=== PATIENT | female | born 1985 | race Caucasian/White ===

== ENCOUNTER 2016-08-24 03:17 | Observation (INO) | payer OTHER ==
[~2016-08-24] VITALS: Ht 165.1 cm; Wt 114.4 kg
[2016-08-24] MEDS: LACTATED RINGER'S 1000ML 1,000 ML IV SCH ×2 (01:00→17:27)
[~2016-08-24 03:17] MED LIST: CRAN500C2; DIPH25CA65 PO; PRENTAB26 PO
[2016-08-24 03:20] VITALS: Ht 165.1 cm; Wt 114.4 kg
--- NOTE | 2016-08-24 03:52 | EMERGENCY ROOM VISIT NOTE ---
History Report prepared by Sohail: Franki Hobbs Under the Supervision of: Dr. Karen Mcclellan D.O. First contact with patient: 03:26 Chief Complaint: CHEST PAIN Stated Complaint: CHEST PAIN Nursing Triage Summary: Pt brought in by EMS. Pt woke up with midsternal chest pain that radiates to back. It started at 1230 am. Pt then became nauseated. Pt reports she has been dealing with lower abdominal pain and kidney stones. History of Present Illness The patient is a 31 year old female who presents to the Emergency Room with complaints of improved midsternal chest pain and epigastric pain starting about 3 hours ago. She woke up when she had a sudden onset of severe chest pain pain. She also reports a tightness in her chest. She had worsening pain with lying on her back. She also had shakiness, cold/clammy hands, shortness of breath, epigastric abdominal pain, and nausea. The patient reports a reduced urinary output tonight. The patient currently reports a discomfort in her chest but denies any pain. She denies vomiting, lower extremity pain/swelling, or any other complaints. For the past few days, she has been having blood in her urine and some back pain. She had steak-umm for dinner last night. She denies any history of acid reflux disease. She had a vaginal child delivery 6 months ago. She also has a history of appendectomy. Source of History: patient Onset: about 3 hours ago Position: chest (midsternal ) Symptom Intensity: No pain currently Timing: other (improved) Associated Symptoms: + SOB, + abdominal pain, + nausea, No vomiting Review of Systems See HPI for pertinent positives & negatives. A total of 10 systems reviewed and were otherwise negative. Past Medical & Surgical Medical Problems: (1) 23 weeks gestation of (2) Active labor (3) Asthma (4) Cholecystitis (5) Flank pain (6) Hand pain, left (7) History of - miscarriage (8) Intractable pain (9) Intractable pain (10) Kidney stone on right side (11) Kidney stone on right side (12) Kidney stones (13) Left flank pain (14) Renal colic (15) Renal colic Surgical Problems: (1) History of appendectomy Family History Diabetes mellitus Heart disease Hypertension Social History Smoking Status: Never Smoker Marital Status: Housing Status: lives with family Current/Historical Medications Scheduled PRN Hydrocodone/Acetaminophen 5MG/325MG ([place] 5MG/325MG), 1-2 TABLET PO Q4H PRN for Pain Allergies Coded Allergies: Banana (Unverified Allergy, Severe, ANAPHYLAXIS - "TONGUE TINGLES", 08/24/16 ) Dust (Verified Allergy, Severe, SNEEZING; MAY HAVE DIFFICULTY BREATHING, 08/24/16) Soy Allergy (Verified Allergy, Severe, ANAPHYLAXIS, 08/24/16) [place] Seed (Verified Allergy, Severe, ANAPHYLAXIS, 08/24/16) Latex1 -Allergic Contact Dermititis (Verified Allergy, Mild, slight skin irritation, 08/24/16) slight skin irritation Physical Exam Vital Signs Date Time Temp Pulse Resp B/P Pulse Ox O2 Delivery O2 Flow Rate FiO2 08/24/16 08:52 87 20 123/85 97 Room Air 08/24/16 07:18 80 08/24/16 07:18 79 18 138/86 98 Room Air 08/24/16 05:59 75 16 129/90 95 Room Air 08/24/16 04:54 79 16 127/76 99 Room Air 08/24/16 03:27 99 Room Air 08/24/16 03:24 82 08/24/16 03:20 36.3 88 20 134/84 99 Room Air Physical Exam HEENT: Head - normocephalic and atraumatic Pupils are equal, round, and reactive to light. Extraocular eye muscles are intact, and sclera are anicteric. Nose - moist nasal mucosa without discharge. Mouth - moist buccal mucosa. Oropharynx is nonerythematous and there is no tonsillar exudate or edema noted. Neck: Supple; no JVD, nuchal rigidity, cervical lymphadenopathy. Heart: Regular rate and rhythm. There is a normal S1 and S2 with no murmurs, clicks, or gallops appreciated. Lungs: Clear to auscultation bilaterally with no wheezes, rales, or rhonchi. Abdomen: Soft, pain in the epigastrium and right upper quadrant to palpation, nondistended, with hypoactive bowel sounds. There are no palpable pulsatile masses or hepatosplenomegaly. There is no guarding, rigidity, or rebound noted. Extremities: No evidence of cyanosis, clubbing, or edema. There are easily palpable peripheral pulses. Skin: warm and dry with good turgor and no rashes. Medical Decision & Procedures ER Provider Diagnostic Interpretation: X-ray results as stated below per interpretation by me: CHEST/ABDOMEN X-RAY She has significant colonic fecal retention. No obvious fecal impaction. US results as stated below per my review and radiologist interpretation: US RUQ COMPARISON: Renal ultrasound 05/21/2016; abdomen and pelvis CT without intravenous contrast 05/15/2014. IMPRESSION: Cholelithiasis, mild to modeate gallbladder dilation, mild gallbladder wall thickening, and trace pericholecystic fluid, suggesting acute cholecystitis; sonographic Clancy;s sign is reportedly negative, however; no biliary duct dilatation. INCIDENTAL: Mildly enlarged, fatty liver; probably small gallbladder polyp; stable appeanace of right kidney, with right renal calyceal stones, as before, without significant right hydronephrosis. Radiologist: Daksha Robles MD Laboratory Results 08/24/16 03:12 Red Blood Count 4.31, Mean Corpuscular Volume 89.8, Mean Corpuscular Hemoglobin 30.4, Mean Corpuscular Hemoglobin Concent 33.9, Mean Platelet Volume 9.6, Neutrophils (%) (Auto) 40.0, Lymphocytes (%) (Auto) 50.9, Monocytes (%) (Auto) 5.6, Eosinophils (%) (Auto) 2.8, Basophils (%) (Auto) 0.5, Neutrophils # (Auto) 3.85, Lymphocytes # (Auto) 4.90, Monocytes # (Auto) 0.54, Eosinophils # (Auto) 0.27, Basophils # (Auto) 0.05 08/24/16 03:12 Test 08/24/16 03:12 08/24/16 03:37 08/24/16 03:52 White Blood Count 9.63 K/uL (4.8-10.8) Red Blood Count 4.31 M/uL (4.2-5.4) Hemoglobin 13.1 g/dL (12.0-16.0) Hematocrit 38.7 % (37-47) Mean Corpuscular Volume 89.8 fL (80-100) Mean Corpuscular Hemoglobin 30.4 pg (25-34) Mean Corpuscular Hemoglobin Concent 33.9 g/dl (32-36) Platelet Count 253 K/uL (130-400) Mean Platelet Volume 9.6 fL (7.4-10.4) Neutrophils (%) (Auto) 40.0 % Lymphocytes (%) (Auto) 50.9 % Monocytes (%) (Auto) 5.6 % Eosinophils (%) (Auto) 2.8 % Basophils (%) (Auto) 0.5 % Neutrophils # (Auto) 3.85 K/uL (1.4-6.5) Lymphocytes # (Auto) 4.90 K/uL (1.2-3.4) Monocytes # (Auto) 0.54 K/uL (0.11-0.59) Eosinophils # (Auto) 0.27 K/uL (0-0.5) Basophils # (Auto) 0.05 K/uL (0-0.2) RDW Standard Deviation 43.2 fL (36.4-46.3) RDW Coefficient of Variation 13.1 % (11.5-14.5) Immature Granulocyte % (Auto) 0.2 % Immature Granulocyte # (Auto) 0.02 K/uL (0.00-0.02) Prothrombin Time 9.6 SECONDS (9.0-12.0) Prothromb Time International Ratio 0.9 (0.9-1.1) Activated Partial Thromboplast Time 29.6 SECONDS (21.0-31.0) Partial Thromboplastin Ratio 1.1 Anion Gap 14.0 mmol/L (3-11) Est Creatinine Clear Calc Drug Dose 116.1 ml/min Estimated GFR () 101.4 Estimated GFR (Non- 87.5 BUN/Creatinine Ratio 16.2 (10-20) Calcium Level 9.1 mg/dl (8.5-10.1) Total Bilirubin 0.3 mg/dl (0.2-1) Direct Bilirubin < 0.1 mg/dl (0-0.2) Aspartate Amino Transf (AST/SGOT) 22 U/L (15-37) Alanine Aminotransferase (ALT/SGPT) 37 U/L (12-78) Alkaline Phosphatase 126 U/L (45-117) Troponin I < 0.015 ng/ml (0-0.045) Total Protein 7.8 gm/dl (6.4-8.2) Albumin 4.0 gm/dl (3.4-5.0) Lipase 248 U/L (73-393) Urine Color YELLOW Urine Appearance CLEAR (CLEAR) Urine pH 5.5 (4.5-7.5) Urine Specific [place] 1.028 (1.000-1.030) Urine Protein NEG (NEG) Urine Glucose (UA) NEG (NEG) Urine Ketones NEG (NEG) Urine Occult Blood NEG (NEG) Urine Nitrite NEG (NEG) Urine Bilirubin NEG (NEG) Urine Urobilinogen NEG (NEG) Urine Leukocyte Esterase NEG (NEG) Bedside Glucose 104 mg/dl (70-90) Laboratory results per my review. Medications Administered Medications (Trade) Dose Ordered Sig/Dia Route Start Time Stop Time Status Last Admin Dose Admin Sodium Chloride 1,000 ml @ 250 mls/hr Q4H STAT IV 08/24/16 07:05 08/24/16 11:04 DC 08/24/16 07:18 250 MLS/HR Lactated Ringer's (Lr 1000ml) 1,000 ml @ 125 mls/hr Q8H IV 08/24/16 07:20 09/23/16 07:19 08/24/16 17:27 125 MLS/HR Morphine Sulfate (MoRPHine SULFATE INJ) 3 mg Q1H PRN IV 08/24/16 07:30 09/07/16 07:29 08/24/16 15:06 3 MG Procedure IV normal saline drip ECG Indication: chest pain Rate (beats per minute): 79 Rhythm: normal sinus Findings: no acute ischemic change, no ectopy ED Course 0326: Past medical records reviewed. The patient was evaluated in room B11B. A complete history and physical exam was performed. An IV lock was initiated and labs are drones above 0404: The nurse told me that the patient was feeling lightheaded. Her blood sugar was 104. 0456: I reevaluated the patient who is resting comfortably. She will go for ultrasound of the right upper quadrant. 0652: Upon reevaluation, I discussed findings and results with the patient. She is extremely anxious but she verbalized agreement of the treatment plan. 0659: I spoke with Dr. Au, general surgeon with [facility]. The patient will be evaluated for further management and care. Medical Decision This is a 31 year old female who presents with epigastric pain and chest pain. Differential diagnosis include constipation, small bowel obstruction, pancreatitis, colitis, cholecystitis, kidney stones. Her labs showed normal white count, urinalysis is normal, glucose 104, Alk-Phos 126, lipase 248, renal function is normal, potassium slightly low at 3.2, no leukocytosis, stable H&H, and negative troponin. This is a 31-year-old female who presents to the emergency department with epigastric pain and chest pain. Plain films reveal moderate stool within the large bowel. However, the patient had an ultrasound which showed evidence of cholelithiasis angle bladder wall thickening concerning for acute cholecystitis. I reviewed the results of this with Dr. Au from surgery and he will evaluate the patient for further care. She'll be kept NPO at this time. Consults Time Called: 06 Consulting Physician: Dr. Au, general surgeon with [facility] Returned Call: [phone] Au, general surgeon with [facility]. The patient will be evaluated for further management and care. Impression Primary Impression: Acute cholecystitis Scribe Attestation The scribe's documentation has been prepared under my direction and personally reviewed by me in its entirety. I confirm that the note above accurately reflects all work, treatment, procedures, and medical decision making performed by me. Departure Information Dispostion Being Evaluated By Surgeon Prescriptions Hydrocodone/Acetaminophen 5MG/325MG ([place] 5MG/325MG) Tab 1-2 TABLET PO Q4H Y for Pain, #30 TAB Prov: Vincent Greene JR.,JOSE 08/24/16 Referrals Vincent Santiago M.D.(TIZ) (PCP) Patient Instructions A Signature Page, My [facility]
[2016-08-24 03:53] LABS: MANUAL MICROSCOPIC REQUIRED? NO; REVIEW REQ? NO; URINE APPEARANCE CLEAR (CLEAR); URINE BILIRUBIN NEG (NEG); URINE COLOR YELLOW; URINE NITRITE NEG (NEG); URINE PH 5.5 (4.5-7.5); URINE SPECIFIC GRAVITY 1.028 (1.000-1.030); UROBILINOGEN NEG (NEG)
[2016-08-24 03:55] LABS: HEMATOCRIT 38.7 % (37-47); MEAN CELL VOLUME 89.8 fL (80-100); MEAN CORPUSCULAR HEMOGLOBIN 30.4 pg (25-34); MEAN CORPUSCULAR HGB CONC 33.9 g/dl (32-36); MEAN PLATELET VOLUME 9.6 fL (7.4-10.4); PLATELET COUNT 253 K/uL (130-400); RED BLOOD COUNT 4.31 M/uL (4.2-5.4); WHITE BLOOD COUNT 9.63 K/uL (4.8-10.8)
[2016-08-24 04:12] LABS: ALT/SGPT 37 U/L (12-78); AST/SGOT 22 U/L (15-37); BLOOD UREA NITROGEN 14 mg/dl (7-18); BUN/CREATININE RATIO 16.2 (10-20); CALCIUM 9.1 mg/dl (8.5-10.1); CARBON DIOXIDE 25 mmol/L (21-32); CHLORIDE 104 mmol/L (98-107); CREATININE 0.87 mg/dl (0.60-1.20); GLUCOSE 108 mg/dl (70-99); POTASSIUM 3.2 mmol/L (3.5-5.1); SODIUM 143 mmol/L (136-145)
[2016-08-24 04:15] LABS: ALKALINE PHOSPHATASE 126 U/L (45-117)
[2016-08-24 04:28] LABS: BASO % 0.5 %; BASO ABS # 0.05 K/uL (0-0.2); COMPLETE YES; EOS % 2.8 %; IG% 0.2 %; LYMPH % 50.9 %; MONO % 5.6 %
[2016-08-24] MEDS ORDERED: SODIUM CHLORIDE 0.9% 1000ML 1,000 ML IV STA (07:05)
--- NOTE | 2016-08-24 07:28 | DIAGNOSTIC IMAGING REPORT ---
ABDOMINAL ULTRASOUND, RIGHT UPPER QUADRANT HISTORY: Right upper quadrant abdominal pain.. COMPARISON: Renal ultrasound 05/21/2016. Abdomen and pelvis CT 05/15/2014. FINDINGS: Pancreas: The pancreatic head and tail are obscured by overlying bowel gas. The remaining portions of the pancreas are within normal limits. Liver: The liver is echogenic consistent with fatty change. Mildly enlarged measuring 18.7 cm in length. Gallbladder: There are few small gallstones. There is mild gallbladder wall thickening and trace pericolic 6 fluid. There is a 7 mm polyp at the fundus of the gallbladder. CBD: 4 mm. Right kidney: No hydronephrosis. There are echogenic medullary pyramids with a few small stones. Possible 2.5 cm hypoechoic lesion within the right kidney. IMPRESSION: 1. There are few small gallstones. The gallbladder wall is mildly thickened and there is trace pericholecystic fluid. A sonographic Clancy sign was reportedly negative. However, this could represent an early acute cholecystitis. 2. Mild hepatomegaly demonstrating fatty change. 3. No hydronephrosis. Echogenic medullary pyramids with a few small stones. 4. Possible 2.5 cm hypoechoic mass within the right kidney. Dedicated nonemergent renal CT or renal MRI is recommended for further evaluation. Electronically signed by: Bao Mercado M.D. 08/24/2016 7:26 AM Dictated Date/Time: 08/24/2016 7:20 AM
[2016-08-24] MEDS ORDERED: ONDANSETRON INJ 2 MG/ML 2 ML VIAL IV PRN ×2 (07:30→12:00)
[2016-08-24] MEDS ORDERED: MoRPHine SULFATE 10 MG/ML CARP/VIAL IV PRN (07:30)
[2016-08-24] MEDS ORDERED: MoRPHine SULFATE 4 MG/ML 1 ML CARP\\VIAL IV PRN (07:30)
[2016-08-24] MEDS ORDERED: DiphenhydrAMINE HCL 50 MG/ML VIAL IV PRN ×2 (07:30→12:00)
--- NOTE | 2016-08-24 07:48 | DIAGNOSTIC IMAGING REPORT ---
PA CHEST WITH ABDOMINAL SERIES CLINICAL HISTORY: Constipation. Atypical chest pain. FINDINGS: A PA chest radiograph is obtained. No prior studies are available for comparison at the time of dictation. The cardiomediastinal silhouette is unremarkable. The lungs and pleural spaces are clear. No pneumothorax is seen. The bony thorax is grossly intact. Supine and erect abdominal radiographs are correlated with abdominal CT dated 05/15/2014. There is a nonobstructed abdominal bowel gas pattern. Moderate colonic fecal retention is noted. No intraperitoneal free air is seen. There are no abnormal abdominal calcifications. The lumbosacral spine and bony pelvis appear intact. IMPRESSION: 1. No active disease in the chest. 2. Nonobstructed abdominal bowel gas pattern noting constipation. Electronically signed by: Devon Hawk M.D. 08/24/2016 7:46 AM Dictated Date/Time: 08/24/2016 7:44 AM
[2016-08-24] MEDS ORDERED: IV FLUIDS COMPLETED PRN (08:00)
[2016-08-24] MEDS ORDERED: AMPICILLIN/SULBACTAM SOD INJ 1,500 MG in SODIUM CHLORIDE 0.9% 100ML 100 ML IV SCH (09:30)
--- NOTE | 2016-08-24 09:37 | History and Physical ---
History & Physical Date & Time of Service: Aug 24, 2016 at 08:08 Chief Complaint: Chest Pain Primary Care Physician: Vincent Santiago M.D.(ITZ) History of Present Illness 31 y/o female woke up last night with severe epigastric pain with mid-scapular pain and radiation to the right side. Had cheese steak for dinner. Had nausea, no vomiting. Not been feeling well for the past week, appetite poor. Has had some right sided discomfort but attributed this to her history of kidney stones. Mother and grandmother had cholecystectomy. She is also nursing 6 month old baby girl. Past Medical/Surgical History Medical Problems: (1) 23 weeks gestation of Status: Resolved (2) Active labor Status: Resolved (3) Asthma Status: Chronic (4) Flank pain Status: Resolved (5) Hand pain, left Status: Resolved (6) History of - miscarriage Status: Resolved (7) Intractable pain Status: Resolved (8) Intractable pain Status: Resolved (9) Kidney stone on right side Status: Resolved (10) Kidney stone on right side Status: Resolved (11) Kidney stones Status: Resolved (12) Left flank pain Status: Resolved (13) Renal colic Status: Resolved (14) Renal colic Status: Resolved Surgical Problems: (1) History of appendectomy Status: Resolved Family History Diabetes mellitus Heart disease Hypertension Social History Smoking Status: Never Smoker Marital Status: Housing status: lives with family Immunizations History of Influenza Vaccine: Unknown History of Tetanus Vaccine?: Unknown History of Pneumococcal: Unknown History of Hepatitis B Vaccine: Unknown Multi-Drug Resistant Organisms History of MDRO: No Allergies Coded Allergies: Banana (Unverified Allergy, Severe, ANAPHYLAXIS - "TONGUE TINGLES", 08/24/16 ) Dust (Verified Allergy, Severe, SNEEZING; MAY HAVE DIFFICULTY BREATHING, 08/24/16) Soy Allergy (Verified Allergy, Severe, ANAPHYLAXIS, 08/24/16) [place] Seed (Verified Allergy, Severe, ANAPHYLAXIS, 08/24/16) Latex1 -Allergic Contact Dermititis (Verified Allergy, Mild, slight skin irritation, 08/24/16) slight skin irritation Home Medications No Active Prescriptions or Reported Meds Review of Systems Constitutional: + chills, No fever Abdomen: + constipation, + nausea, + pain, No vomiting Physical Exam Vital Signs Date Time Temp Pulse Resp B/P Pulse Ox O2 Delivery O2 Flow Rate FiO2 08/24/16 07:18 80 08/24/16 07:18 79 18 138/86 98 Room Air 08/24/16 05:59 75 16 129/90 95 Room Air 08/24/16 04:54 79 16 127/76 99 Room Air 08/24/16 03:27 99 Room Air 08/24/16 03:24 82 08/24/16 03:20 36.3 88 20 134/84 99 Room Air General Appearance: WD/WN, + mild distress Neck: supple Respiratory/Chest: lungs clear, normal breath sounds Cardiovascular: regular rate, rhythm, no edema Abdomen/GI: normal bowel sounds, soft, + tenderness (minmal RUQ) Extremities/Musculoskelatal: no pedal edema Skin: normal color, warm/dry Diagnostics Laboratory Results Results Past 24 Hours Test 08/24/16 03:12 08/24/16 03:37 08/24/16 03:52 Range/Units White Blood Count 9.63 4.8-10.8 K/uL Red Blood Count 4.31 4.2-5.4 M/uL Hemoglobin 13.1 12.0-16.0 g/dL Hematocrit 38.7 37-47 % Mean Corpuscular Volume 89.8 80-100 fL Mean Corpuscular Hemoglobin 30.4 25-34 pg Mean Corpuscular Hemoglobin Concent 33.9 32-36 g/dl Platelet Count 253 130-400 K/uL Mean Platelet Volume 9.6 7.4-10.4 fL Neutrophils (%) (Auto) 40.0 % Lymphocytes (%) (Auto) 50.9 % Monocytes (%) (Auto) 5.6 % Eosinophils (%) (Auto) 2.8 % Basophils (%) (Auto) 0.5 % Neutrophils # (Auto) 3.85 1.4-6.5 K/uL Lymphocytes # (Auto) 4.90 1.2-3.4 K/uL Monocytes # (Auto) 0.54 0.11-0.59 K/uL Eosinophils # (Auto) 0.27 0-0.5 K/uL Basophils # (Auto) 0.05 0-0.2 K/uL RDW Standard Deviation 43.2 36.4-46.3 fL RDW Coefficient of Variation 13.1 11.5-14.5 % Immature Granulocyte % (Auto) 0.2 % Immature Granulocyte # (Auto) 0.02 0.00-0.02 K/uL Sodium Level 143 136-145 mmol/L Potassium Level 3.2 3.5-5.1 mmol/L Chloride Level 104 98-107 mmol/L Carbon Dioxide Level 25 21-32 mmol/L Anion Gap 14.0 3-11 mmol/L Blood Urea Nitrogen 14 7-18 mg/dl Creatinine 0.87 0.60-1.20 mg/dl Est Creatinine Clear Calc Drug Dose 116.1 ml/min Estimated GFR () 101.4 Estimated GFR (Non- 87.5 BUN/Creatinine Ratio 16.2 10-20 Random Glucose 108 70-99 mg/dl Calcium Level 9.1 8.5-10.1 mg/dl Total Bilirubin 0.3 0.2-1 mg/dl Direct Bilirubin < 0.1 0-0.2 mg/dl Aspartate Amino Transf (AST/SGOT) 22 15-37 U/L Alanine Aminotransferase (ALT/SGPT) 37 12-78 U/L Alkaline Phosphatase 126 45-117 U/L Troponin I < 0.015 0-0.045 ng/ml Total Protein 7.8 6.4-8.2 gm/dl Albumin 4.0 3.4-5.0 gm/dl Lipase 248 73-393 U/L Urine Color YELLOW Urine Appearance CLEAR CLEAR Urine pH 5.5 4.5-7.5 Urine Specific [place] 1.028 1.000-1.030 Urine Protein NEG NEG Urine Glucose (UA) NEG NEG Urine Ketones NEG NEG Urine Occult Blood NEG NEG Urine Nitrite NEG NEG Urine Bilirubin NEG NEG Urine Urobilinogen NEG NEG Urine Leukocyte Esterase NEG NEG Bedside Glucose 104 70-90 mg/dl Diagnostic Radiology ABDOMINAL ULTRASOUND, RIGHT UPPER QUADRANT HISTORY: Right upper quadrant abdominal pain.. COMPARISON: Renal ultrasound 05/21/2016. Abdomen and pelvis CT 05/15/2014. FINDINGS: Pancreas: The pancreatic head and tail are obscured by overlying bowel gas. The remaining portions of the pancreas are within normal limits. Liver: The liver is echogenic consistent with fatty change. Mildly enlarged measuring 18.7 cm in length. Gallbladder: There are few small gallstones. There is mild gallbladder wall thickening and trace pericolic 6 fluid. There is a 7 mm polyp at the fundus of the gallbladder. CBD: 4 mm. Right kidney: No hydronephrosis. There are echogenic medullary pyramids with a few small stones. Possible 2.5 cm hypoechoic lesion within the right kidney. IMPRESSION: 1. There are few small gallstones. The gallbladder wall is mildly thickened and there is trace pericholecystic fluid. A sonographic Clancy sign was reportedly negative. However, this could represent an early acute cholecystitis. 2. Mild hepatomegaly demonstrating fatty change. 3. No hydronephrosis. Echogenic medullary pyramids with a few small stones. 4. Possible 2.5 cm hypoechoic mass within the right kidney. Dedicated nonemergent renal CT or renal MRI is recommended for further evaluation. Electronically signed by: Bao Mercado M.D. 08/24/2016 7:26 AM Dictated Date/Time: 08/24/2016 7:20 AM Impression Assessment and Plan Acute/chronic cholecystitis Will plan for laparoscopic cholecystectomy (no cholangiogram) this afternoon by Dr. Au. Preop Unasyn. VTE Prophylaxis VTE Risk Assessment Done? Y/N: Yes Risk Level: Moderate
[2016-08-24] MEDS ORDERED: AMPICILLIN/SULBACTAM SOD INJ 3,000 MG in SODIUM CHLORIDE 0.9% 100ML 100 ML IV ONE (11:00)
[2016-08-24] MEDS ORDERED: PROPOFOL IV EMULSION 10 MG/ML 20 ML VIAL IV ONE (11:18)
[2016-08-24] MEDS ORDERED: ONDANSETRON INJ 2 MG/ML 2 ML VIAL ONE ×2 (11:18→12:21)
[2016-08-24] MEDS ORDERED: GLYCOPYRROLATE INJ 0.2 MG/ML VIAL ONE (11:18)
[2016-08-24] MEDS ORDERED: ROCURONIUM BROMIDE 10 MG/ML 5 ML VIAL ONE (11:18)
[2016-08-24] MEDS ORDERED: DEXAMETHASONE SOD INJ 4 MG/ML VIAL ONE ×2 (11:18→12:21)
[2016-08-24] MEDS ORDERED: MIDAZOLAM HCL 1 MG/ML 2ML VIAL ONE (11:18)
[2016-08-24] MEDS ORDERED: LIDOCAINE HCL 2% 2 ML VIAL (20MG/ML) ONE (11:18)
[2016-08-24] MEDS ORDERED: NEOSTIGMINE METHYLSULFATE 5 MG/5 ML SYR ONE (11:18)
[2016-08-24] MEDS ORDERED: FENTANYL CITRATE INJ 50 MCG/1 ML 2 ML VIAL ONE ×2 (11:19→13:05)
[2016-08-24] MEDS ORDERED: SCOPOLAMINE 1.5 MG TDSY TD ONE (11:31)
[2016-08-24] MEDS ORDERED: LACTATED RINGER'S 1000ML 1,000 ML IV PRN (11:46)
[2016-08-24] MEDS ORDERED: FENTANYL CITRATE INJ 50 MCG/1 ML 2 ML VIAL IV PRN (12:00)
[2016-08-24] MEDS ORDERED: METOCLOPRAMIDE HCL INJ 5 MG/ML 2 ML VIAL ONE (12:20)
[2016-08-24] MEDS ORDERED: DiphenhydrAMINE HCL 50 MG/ML VIAL ONE (12:21)
[2016-08-24] MEDS ORDERED: BUPIVACAINE/EPINEPHRINE 0.5% MPF 1:200,000 30 ML VIAL INJ ONE (12:58)
--- NOTE | 2016-08-24 13:23 | [facility] Operative Report ---
Operative Report Operative Date Aug 24, 2016. Pre-Operative Diagnosis acute cholecystitis Post-Operative Diagnosis same Procedure(s) Performed lap cholecystectomy Surgeon Dr. Fabricio Au Industrial Seamstress Surgeon(s) Flako Greene PA-C Estimated Blood Loss 25ML Findings acute calculous cholecystitis Specimens A. Gallbladder Complication(s) None Disposition Recovery Room / PACU I attest to the content of the Intraoperative Record and any orders documented therein. Any exceptions are noted below.
[2016-08-24] MEDS ORDERED: HYDR-5688 PO (13:24)
--- NOTE | 2016-08-24 13:26 | Discharge Instructions ---
Discharge Instructions Admission Reason for Admission: Chest Pain Discharge Discharge Diagnosis / Problem: Acute cholecystitis Discharge Goals Goal(s): Decrease discomfort Activity Recommendations Activity Limitations: per Instructions/Follow-up section Shower/Bathe: no limitations Driving or Machine Use: resume 3 days after discharge . Instructions / Follow-Up Instructions / Follow-Up Dr. Au's office within 2 weeks, call [phone] to schedule, [address] Current Hospital Diet Patient's current hospital diet: Clear Liquid Diet Discharge Diet Recommended Diet: Regular Diet Procedures Procedures Performed: Laparoscopic Cholecystectomy Pending Studies Studies pending at discharge: no Medical Emergencies . Who to Call and When: Medical Emergencies: If at any time you feel your situation is an emergency, please call 911 immediately. . Non-Emergent Contact Non-Emergency issues call your: Surgeon Call Non-Emergent contact if: you have a fever, temperature is above 101.5, your pain is not controlled, wound has increased redness, wound has increased pain . "Provider Documentation" section prepared by Vincent Greene. VTE Core Measure Inpt VTE Proph given/why not?: Enoxaparin (Lovenox)SQ
--- NOTE | 2016-08-24 13:35 | OPERATIVE REPORT ---
DATE OF OPERATION: 08/24/2016 PREOPERATIVE DIAGNOSIS: Acute calculus cholecystitis. POSTOPERATIVE DIAGNOSIS: Same. PROCEDURE: Laparoscopic cholecystectomy. SURGEON: Dr. Au. EVENT PLANNER: Rafael Greene PA-C. ESTIMATED BLOOD LOSS: 25 mL. COMPLICATIONS: No immediate. ANESTHESIA: General. The patient tolerated the procedure well. OPERATIVE NOTE: After informed consent was obtained, the patient was taken to the operating suite, placed in supine position. After successful intubation, the abdomen was sterilely prepped and draped in usual fashion. A periumbilical incision made with an 11 blade scalpel and carried down through the soft tissues and electrocautery. The anterior rectus fascia was opened using electrocautery and two #0 Vicryl stay sutures were placed. Peritoneum was entered using blunt finger penetration. A finger sweep was performed. At 12 mm Sobeida trocar was placed and the abdomen was insufflated to 20 mmHg. Laparoscope was inserted and the abdomen examined 360 degrees. Other than an inflamed gallbladder no other abnormalities were identified. The patient was placed in reverse Trendelenburg position and slightly airplaned to the left. A subxiphoid 5 mm port and 2 right upper quadrant 5 mm ports were placed under direct vision. The gallbladder was grasped, elevated superiorly and laterally. It was thickened and inflamed. We used a [place] dissector to dissect free adhesions down to the neck of the gallbladder. We were able to initially skeletonized what was an anterior cystic artery. It was clipped twice proximally and once distally and transected. The cystic duct was then identified, skeletonized, clipped and divided as well. The gallbladder was removed from the gallbladder fossa intact and placed into an EndoCatch bag. Small bleeding points in the gallbladder fossa were controlled using electrocautery. Thorough irrigation was performed. At the end of the procedure, there was adequate hemostasis and no evidence of any bile leak. No other abnormalities were identified. The gallbladder was placed into an EndoCatch bag and removed from the camera port site. The trocars were all removed and the abdomen was desufflated. The fascia of the camera port was closed using 0 Vicryl in a [id number] fashion. All the wounds were irrigated and closed using 4-0 Monocryl. Marcaine was injected around them for postoperative analgesia and skin glue uses as a dressing. The patient was awakened, extubated, and transferred to recovery in stable condition. I attest to the content of the Intraoperative Record and any orders documented therein. Any exceptio ns are noted below.
--- NOTE | 2016-08-24 14:13 | Anesthesiology Progress Note ---
Anesthesia Post Op Note Date & Time Aug 24, 2016 at 14:12 Vital Signs Pain Intensity: 1 Vital Signs Past 12 Hours Date Time Temp Pulse Resp B/P Pulse Ox O2 Delivery O2 Flow Rate FiO2 08/24/16 13:55 36.8 71 16 136/76 97 Nasal Cannula 3 08/24/16 13:40 36.8 60 16 133/79 97 Nasal Cannula 3 08/24/16 13:30 64 16 134/83 98 Nasal Cannula 3 08/24/16 13:20 61 16 154/83 100 Mask 10 08/24/16 13:10 36.4 78 16 151/73 97 Mask 10 08/24/16 11:25 36.6 84 16 145/86 100 Room Air 08/24/16 11:19 68 18 129/68 98 08/24/16 10:24 36.5 73 18 135/72 97 Room Air 08/24/16 08:52 87 20 123/85 97 Room Air 08/24/16 07:18 80 08/24/16 07:18 79 18 138/86 98 Room Air 08/24/16 05:59 75 16 129/90 95 Room Air 08/24/16 04:54 79 16 127/76 99 Room Air 08/24/16 03:27 99 Room Air 08/24/16 03:24 82 08/24/16 03:20 36.3 88 20 134/84 99 Room Air Notes Mental Status: alert / awake / arousable, participated in evaluation Pt Amnestic to Procedure: Yes Nausea / Vomiting: adequately controlled Pain: adequately controlled Airway Patency, RR, SpO2: stable & adequate BP & HR: stable & adequate Hydration State: stable & adequate Anesthetic Complications: no major complications apparent
[2016-08-24 14:20] VITALS: BP 119/77; PULSE 77; TEMP 37.2; O2SAT 94
[2016-08-24 14:36] LABS: INR 0.9 (0.9-1.1); PARTIAL THROMBOPLASTIN RATIO 1.1; PROTHROMBIN TIME (PATIENT) 9.6 SECONDS (9.0-12.0)
[2016-08-24 14:50] VITALS: BP 129/78; PULSE 68; TEMP 37.3; O2SAT 92
[2016-08-24 15:20] VITALS: BP 121/79; PULSE 70; TEMP 37.3; O2SAT 92
[2016-08-24 16:20] VITALS: BP 121/83; PULSE 82; TEMP 37; O2SAT 94
[2016-08-24 17:20] VITALS: BP 127/83; PULSE 82; TEMP 37.1; O2SAT 94
[2016-08-24] MEDS: AMPICILLIN/SULBACTAM SOD INJ 1,500 MG in SODIUM CHLORIDE 0.9% 100ML 100 ML IV SCH ×2 (18:01→23:55)
[2016-08-24] MEDS: ENOXAPARIN 40 MG/0.4 ML SYR SQ SCH (18:18)
[2016-08-24] MEDS: HYDROCODONE/ACETAMOPHEN 5/325MG TAB PO PRN ×2 (18:39→22:47)
[2016-08-24 19:50] VITALS: BP 106/66; PULSE 80; TEMP 36.8; O2SAT 95
[2016-08-25 00:15] VITALS: BP 107/72; PULSE 73; TEMP 36.6; O2SAT 97
[2016-08-25 04:33] VITALS: BP 117/70; PULSE 79; TEMP 37; O2SAT 94
--- NOTE | 2016-08-25 07:47 | Surgery Progress Note ---
Surgery Progress Note Date of Service Aug 25, 2016. Subjective Post OP Day: 1 + feeling well preop pain completely resolved. feels well. hiram diet/jello etc... Objective Vital Signs: Date Time Temp Pulse Resp B/P Pulse Ox O2 Delivery O2 Flow Rate FiO2 08/25/16 04:33 37.0 79 16 117/70 94 Room Air 08/25/16 00:15 36.6 73 18 107/72 97 Room Air 08/25/16 00:15 97 Room Air 08/24/16 19:50 36.8 80 16 106/66 95 Room Air 08/24/16 17:20 37.1 82 16 127/83 94 Room Air 08/24/16 16:20 37.0 82 16 121/83 94 Room Air 08/24/16 15:20 37.3 70 16 121/79 92 Room Air 08/24/16 14:50 37.3 68 16 129/78 92 Room Air 08/24/16 14:20 94 Room Air 08/24/16 14:20 37.2 77 16 119/77 94 Room Air 08/24/16 13:55 36.8 71 16 136/76 97 Nasal Cannula 3 08/24/16 13:40 36.8 60 16 133/79 97 Nasal Cannula 3 08/24/16 13:30 64 16 134/83 98 Nasal Cannula 3 08/24/16 13:20 61 16 154/83 100 Mask 10 08/24/16 13:10 36.4 78 16 151/73 97 Mask 10 08/24/16 11:25 36.6 84 16 145/86 100 Room Air 08/24/16 11:19 68 18 129/68 98 08/24/16 10:24 36.5 73 18 135/72 97 Room Air 08/24/16 08:52 87 20 123/85 97 Room Air General Appearance: no apparent distress Head: normocephalic Abdomen: non tender, non distended, soft Incision(s): clean, dry, intact, no erythema Laboratory Results: Results Past 24 Hours Test 08/24/16 11:52 Range/Units Urine Test NEG NEG Assessment & Plan POD #1 ok for d/c instructions given f/u office 1-2 weeks.
[2016-08-25 07:50] VITALS: BP 119/75; PULSE 60; TEMP 37.1; O2SAT 98
[2016-08-25] MEDS ORDERED: NURSING VERBAL MED ORDER ONE (08:15)
[2016-08-25] MEDS: ENOXAPARIN 40 MG/0.4 ML SYR SQ SCH (08:24)
[2016-08-25] MEDS ORDERED: IBUPROFEN 600 MG TAB PO ONE (08:30)
[2016-08-25 09:53] VITALS: BP 119/75; PULSE 60; TEMP 37.1; O2SAT 98
--- NOTE | 2016-08-28 14:13 | DISCHARGE SUMMARY ---
PRIMARY DISCHARGE DIAGNOSIS: Cholelithiasis with acute cholecystitis. SECONDARY DISCHARGE DIAGNOSIS: History of kidney stones. PROCEDURE PERFORMED: Laparoscopic cholecystectomy on 08/24/2016. HOSPITAL COURSE: The patient is a 31-year-old female who presented to the Emergency Department overnight with a complaint of epigastric and mid scapular pain radiating to the right side after having a cheese steak for dinner. Ultrasound showed cholelithiasis with mildly thickened wall and trace pericholecystic fluid. Her pain continued throughout the morning despite IV medication. She elected to proceed with cholecystectomy later that day. The procedure was well tolerated. She was transferred to the surgical floor for overnight observation. On postoperative day 1, she was tolerating advancing diet and oral analgesics. She was stable for discharge later in the day. DISCHARGE INSTRUCTIONS: Discharge home. Follow up with Dr. Au in 2 weeks. DISCHARGE MEDICATIONS: Hopkins 5/325 1-2 tablets every 4 hours as needed.
--- NOTE | 2016-08-29 09:15 | DISCHARGE SUMMARY ---
DISCHARGE DIAGNOSIS: Acute cholecystitis. DISCHARGE SUMMARY: This is a 31-year-old female who came to the [facility] Emergency Room with abdominal pain. Workup showed acute cholecystitis. Options were discussed with her and she was taken to the operating room on 08/24/2016 which she went through laparoscopic cholecystectomy. She was kept for observation. She did tolerate diet and by the following day was feeling much better. She was up walking around, pain was controlled. She was deemed stable for discharge on 08/25/2016. She was given written as well as verbal discharge instructions and told to follow up with myself in the office within a 2-week period.
[2017-01-10] MEDS ORDERED: DIPH1TAB PO (15:35)
== END 2016-08-25 11:05 | disposition home or self-care (01) ==
LOC: ENRESERVDT → ENRESERVTM → EDBD 03:17 → C.EDB 03:18 → C.MS4N 09:24 → CANBEDREQ 09:28 → EDBEDREQSVC 13:31 → EDBEDREQ 13:31
PROVIDERS: ADMIT Surgery; ATTEND Surgery
DX: K80.12 Calculus of gallbladder with acute and chronic cholecystitis without obstruction (principal); J45.909 Unspecified asthma, uncomplicated

== ENCOUNTER 2016-09-01 17:34 | Emergency (ER) | payer OTHER ==
[~2016-09-01] VITALS: Ht 165.1 cm; Wt 109.0 kg
[~2016-09-01 17:34] MED LIST changes: -CRAN500C2; -DIPH25CA65 PO; +HYDR-5688 PO; -PRENTAB26 PO
[2016-09-01 17:46] VITALS: TEMP 36.5; Ht 165.1 cm; Wt 109.0 kg
[2016-09-01] MEDS ORDERED: SODIUM CHLORIDE 0.9% 1000ML 1,000 ML IV STA (18:28)
[2016-09-01] MEDS ORDERED: DiphenhydrAMINE HCL 50 MG/ML VIAL IV STA (18:28)
[2016-09-01] MEDS ORDERED: PROCHLORPERAZINE 5 MG/ML 2 ML VIAL IV STA (18:28)
[2016-09-01] MEDS ORDERED: ONDANSETRON INJ 2 MG/ML 2 ML VIAL IV STA (18:28)
[2016-09-01] MEDS ORDERED: KETOROLAC TROMETHAMINE 30 MG/ML VIAL IV STA (18:28)
--- NOTE | 2016-09-01 18:33 | EMERGENCY ROOM VISIT NOTE ---
History Report prepared by Sohail: Izabela Kohler Under the Supervision of: Dr. Dell Francis M.D. First contact with patient: 18:19 Chief Complaint: ANXIETY Stated Complaint: DEPRESSION, ANXIETY, SHAKING, S/P SURGERY 1WK AGO History of Present Illness The patient is a 31 year old female who presents to the Emergency Room with complaints of constant pain from post op cholecystectomy beginning yesterday. The patient is 8 days post op and notes that right after the surgery she felt well. Yesterday the patient began to have abdominal soreness, fever, shaking, dizziness, lightheadedness, nausea and palpations. These symptoms have since continue today. She is also experiencing slight anxiety from her symptoms. Source of History: patient Onset: yesterday Position: other (global) Quality: other (post op symptoms) Timing: constant Associated Symptoms: + abdominal pain, + fevers, + nausea Note: The patient is experiencing shaking, dizziness, lightheadedness, and palpations. Review of Systems See HPI for pertinent positives & negatives. A total of 10 systems reviewed and were otherwise negative. Past Medical & Surgical Medical Problems: (1) 23 weeks gestation of (2) Active labor (3) Asthma (4) Cholecystitis (5) Flank pain (6) Hand pain, left (7) History of - miscarriage (8) Intractable pain (9) Intractable pain (10) Kidney stone on right side (11) Kidney stone on right side (12) Kidney stones (13) Left flank pain (14) Renal colic (15) Renal colic Surgical Problems: (1) History of appendectomy Family History Diabetes mellitus Heart disease Hypertension Social History Smoking Status: Never Smoker Marital Status: Housing Status: lives with family Current/Historical Medications Scheduled Ondasetron Odt (Zofran Odt), 4 MG SL Q6H Scheduled PRN Albuterol Hfa (Ventolin Hfa), 2 PUFFS INH Q4H PRN for SOB/Wheezing Hydrocodone/Acetaminophen 5MG/325MG ([place] 5MG/325MG), 1-2 TABLET PO Q4H PRN for Pain Allergies Coded Allergies: Banana (Unverified Allergy, Severe, ANAPHYLAXIS - "TONGUE TINGLES", ) Dust (Verified Allergy, Severe, SNEEZING; MAY HAVE DIFFICULTY BREATHING, 09/01/16) Soy Allergy (Verified Allergy, Severe, ANAPHYLAXIS, 09/01/16) Calloway Seed (Verified Allergy, Severe, ANAPHYLAXIS, 09/01/16) Latex1 -Allergic Contact Dermititis (Verified Allergy, Mild, slight skin irritation, 09/01/16) slight skin irritation Physical Exam Vital Signs Date Time Temp Pulse Resp B/P Pulse Ox O2 Delivery O2 Flow Rate FiO2 09/01/16 23:48 76 15 150/68 97 09/01/16 20:23 80 15 109/62 97 Room Air 09/01/16 18:34 93 09/01/16 17:46 36.5 91 20 160/90 100 Room Air Physical Exam CONSTITUTIONAL: Moderate anxious painful distress. HEENT: No icterus, moist mucous membranes NECK: No meningismus, trachea is midline. CARDIOVASCULAR: Regular rate, normal perfusion RESPIRATORY: Unlabored breathing. Clear to auscultation. GASTROINTESTINAL: Mild diffuse abdominal tenderness. GENITOURINARY: No flank tenderness MUSCULOSKELETAL: Full range of motion NEUROLOGIC: No acute gross focal deficits. PSYCHIATRIC: Normal affect SKIN: Normal for ethnicity. Medical Decision & Procedures ER Provider Diagnostic Interpretation: X-ray results as stated below per my interpretation and radiologist interpretation. Other radiology results as stated below per my review and radiologist interpretation. CHEST 2 VIEWS ROUTINE CLINICAL HISTORY: Postop fever COMPARISON STUDY: Chest x-ray dated 08/24/2016 FINDINGS: The cardiac and mediastinal contours are normal. There is no evidence of focal pulmonary consolidation. There is no evidence of failure. No pleural effusions are visualized.[ IMPRESSION: No active disease in the chest. Electronically signed by: Leon Mcmillan M.D. 09/01/2016 7:37 PM Dictated Date/Time: 09/01/2016 7:[address] ABD/PELVIS IV AND ORAL CONT CLINICAL HISTORY: Either, diffuse abdominal pain. Nausea. Postop day 8 from a laparoscopic cholecystectomy. COMPARISON STUDY: 05/15/2014 TECHNIQUE: Following the IV administration of 116 mL of Optiray-320, CT scan of the abdomen and pelvis was performed from the lung bases to the proximal femurs. Images are reviewed in the axial, sagittal, and coronal planes. IV contrast was administered without complication. CT DOSE: 1246.15 mGy.cm FINDINGS: Lower chest: The heart is normal in size and configuration, without pericardial effusion. The lung bases and pleural spaces are clear. Liver: The contrast-enhanced liver is normal in size, contour, and attenuation. There is no intrahepatic biliary ductal dilatation. The hepatic veins and portal veins are patent. Gallbladder: Surgically absent. There is a 25 mm fluid collection within the cholecystectomy bed. There is minimal stranding within the pericholecystic fat is likely postsurgical. Spleen: Normal in size and attenuation. Pancreas: Unremarkable. Adrenal glands: Unremarkable. Kidneys: There is symmetric renal cortical enhancement. The kidneys are normal in size without hydronephrosis. There are bilateral nonobstructing renal calculi Bowel: There are no transition zones indicate bowel obstruction. There is no acute diverticulitis. The appendix is not visualized with certainty. There are no findings to indicate acute appendicitis. Peritoneum: There is no intraperitoneal free air or abdominal ascites. Vasculature: The abdominal aorta is normal in course and caliber. Adenopathy: None. Pelvic viscera: The bladder, and pelvic viscera are unremarkable. Skeletal structures: There is mild soft tissue stranding adjacent to the umbilicus likely secondary to a trocar site. There is a small amount of air within the right anterior abdominal wall, likely postsurgical. IMPRESSION: 1. No evidence of bowel obstruction. No evidence of free air 2. Nonobstructing bilateral renal calculi 3. Surgically absent gallbladder. 25 mm fluid collection within the gallbladder fossa likely postsurgical. 4. No evidence of perihepatic fluid. No evidence of ascites. Electronically signed by: Leon Mcmillan M.D. 09/01/2016 9:46 PM Dictated Date/Time: 09/01/2016 9:41 PM Laboratory Results 09/01/16 18:40 Red Blood Count 4.30, Mean Corpuscular Volume 87.2, Mean Corpuscular Hemoglobin 30.5, Mean Corpuscular Hemoglobin Concent 34.9, Mean Platelet Volume 9.4, Neutrophils (%) (Auto) 69.5, Lymphocytes (%) (Auto) 23.8, Monocytes (%) (Auto) 5.3, Eosinophils (%) (Auto) 0.5, Basophils (%) (Auto) 0.4, Neutrophils # (Auto) 7.32, Lymphocytes # (Auto) 2.50, Monocytes # (Auto) 0.56, Eosinophils # (Auto) 0.05, Basophils # (Auto) 0.04 09/01/16 18:40 Test 09/01/16 18:40 09/01/16 20:05 White Blood Count 10.52 K/uL (4.8-10.8) Red Blood Count 4.30 M/uL (4.2-5.4) Hemoglobin 13.1 g/dL (12.0-16.0) Hematocrit 37.5 % (37-47) Mean Corpuscular Volume 87.2 fL (80-100) Mean Corpuscular Hemoglobin 30.5 pg (25-34) Mean Corpuscular Hemoglobin Concent 34.9 g/dl (32-36) Platelet Count 262 K/uL (130-400) Mean Platelet Volume 9.4 fL (7.4-10.4) Neutrophils (%) (Auto) 69.5 % Lymphocytes (%) (Auto) 23.8 % Monocytes (%) (Auto) 5.3 % Eosinophils (%) (Auto) 0.5 % Basophils (%) (Auto) 0.4 % Neutrophils # (Auto) 7.32 K/uL (1.4-6.5) Lymphocytes # (Auto) 2.50 K/uL (1.2-3.4) Monocytes # (Auto) 0.56 K/uL (0.11-0.59) Eosinophils # (Auto) 0.05 K/uL (0-0.5) Basophils # (Auto) 0.04 K/uL (0-0.2) RDW Standard Deviation 41.4 fL (36.4-46.3) RDW Coefficient of Variation 12.9 % (11.5-14.5) Immature Granulocyte % (Auto) 0.5 % Immature Granulocyte # (Auto) 0.05 K/uL (0.00-0.02) Anion Gap 13.0 mmol/L (3-11) Est Creatinine Clear Calc Drug Dose 118.4 ml/min Estimated GFR () 107.4 Estimated GFR (Non- 92.7 BUN/Creatinine Ratio 14.7 (10-20) Calcium Level 9.5 mg/dl (8.5-10.1) Total Bilirubin 0.3 mg/dl (0.2-1) Direct Bilirubin < 0.1 mg/dl (0-0.2) Aspartate Amino Transf (AST/SGOT) 15 U/L (15-37) Alanine Aminotransferase (ALT/SGPT) 31 U/L (12-78) Alkaline Phosphatase 130 U/L (45-117) Total Protein 8.3 gm/dl (6.4-8.2) Albumin 4.3 gm/dl (3.4-5.0) Lipase 164 U/L (73-393) Urine Color YELLOW Urine Appearance CLEAR (CLEAR) Urine pH 7.5 (4.5-7.5) Urine Specific [place] 1.010 (1.000-1.030) Urine Protein NEG (NEG) Urine Glucose (UA) NEG (NEG) Urine Ketones NEG (NEG) Urine Occult Blood NEG (NEG) Urine Nitrite NEG (NEG) Urine Bilirubin NEG (NEG) Urine Urobilinogen NEG (NEG) Urine Leukocyte Esterase MODERATE (NEG) Urine WBC (Auto) 5-10 /hpf (0-5) Urine RBC (Auto) 0-4 /hpf (0-4) Urine Hyaline Casts (Auto) 0 /lpf (0-5) Urine Epithelial Cells (Auto) >30 /lpf (0-5) Urine Bacteria (Auto) NEG (NEG) Labs reviewed by ED physician. Medications Administered Medications (Trade) Dose Ordered Sig/Dia Route Start Time Stop Time Status Last Admin Dose Admin Prochlorperazine Edisylate (Compazine Inj) 10 mg NOW STAT IV 09/01/16 18:28 09/01/16 18:32 DC 09/01/16 18:57 10 MG Diphenhydramine HCl (Benadryl Inj) 25 mg NOW STAT IV 09/01/16 18:28 09/01/16 18:32 DC 09/01/16 18:57 25 MG Ketorolac Tromethamine 30 mg 30 mg NOW STAT IV 09/01/16 18:28 09/01/16 18:32 DC 09/01/16 18:56 30 MG Sodium Chloride (Nss 1000ml) 1,000 ml @ 0 mls/hr Q0M STAT IV 09/01/16 18:28 09/01/16 18:32 DC 09/01/16 19:01 999 MLS/HR Ondansetron HCl (Zofran Inj) 4 mg NOW STAT IV 09/01/16 18:28 09/01/16 18:32 DC 09/01/16 18:56 4 MG Piperacillin Sod/ Tazobactam Sod (Zosyn Iv) 4.5 gm NOW STAT IV 09/01/16 18:57 09/01/16 18:58 DC 09/01/16 19:30 4.5 GM Ondansetron HCl (ZOFRAN ODT 4MG Home Pack) 1 homepack UD ONCE PO 09/01/16 23:15 09/01/16 23:16 DC 09/01/16 23:48 1 HOMEPACK ED Course 182: Past medical records reviewed. The patient was evaluated in room A7. A complete history and physical examination was performed. 1827: Zofran Inj 4 mg IV, Sodium Chloride 1,000 ml @ 0 mls/hr Wide Open IV, Toradol Inj 30 mg IV, Benadryl Inj 25 mg IV, Compazine Inj 10 mg IV. 1856: Zosyn Ing 4.5 gm IV. 2203: I spoke with Dr. Beltran and he thinks the patient should be hospitalized and followed by a hospitalist basilio. 2207: Discussed the patient's case with Dr. Daniela ESCOBAR. The patient will be evaluated for further management. 2315: Zofran ODT 4 mg Home Pack 1 homepack PO. 2335: Upon reexamination the patient is hemodynamically stable. I discussed results and treatment plan with the patient. She verbalizes agreement and understanding. The patient is ready for discharge. Medical Decision Differential diagnoses include but are not limited to; post op complication, viral syndrome. 31-year-old POD#8 lap-kelly (Roe) presents to the emergency room for evaluation of diffuse abdominal discomfort, nausea and TAT 100.8 at home. ED evaluation revealed a normal WBC count, negative CT scan and contaminated UA w/ o symptoms by history. Surgical consultation with Dr. Beltran obtained and there was felt to be no acute need for surgical management. Patient was offered observation versus discharge and chose to leave at this time. Rx Zofran. Patient agrees to return for any worsening or worrisome symptoms. Abdomen benign prior to discharge. Patient remained with normal vitals during ED course. Consults Additional Consults: Additional Comments: Impression Primary Impression: Fever Additional Impression: Post-op pain Scribe Attestation The scribe's documentation has been prepared under my direction and personally reviewed by me in its entirety. I confirm that the note above accurately reflects all work, treatment, procedures, and medical decision making performed by me. Departure Information Dispostion Home / Self-Care Prescriptions Ondasetron Odt (ZOFRAN ODT) 4 Mg Tab 4 MG SL Q6H for Nausea, #20 TAB Prov: Dell Francis MD 09/01/16 Referrals Vincent Santiago M.D.(ITZ) (PCP) Forms HOME CARE DOCUMENTATION FORM, IMPORTANT VISIT INFORMATION Patient Instructions Fever - [facility], [facility] Problem Qualifiers
[2016-09-01] MEDS ORDERED: VNTHFA/IN INH (18:48)
[2016-09-01] MEDS ORDERED: PIPERACILLIN/TAZOBACTAM 4.5 GM/100ML D5W IV STA (18:57)
[2016-09-01 18:59] LABS: BASO % 0.4 %; BASO ABS # 0.04 K/uL (0-0.2); COMPLETE YES; EOS % 0.5 %; HEMATOCRIT 37.5 % (37-47); IG% 0.5 %; LYMPH % 23.8 %; MEAN CELL VOLUME 87.2 fL (80-100); MEAN CORPUSCULAR HEMOGLOBIN 30.5 pg (25-34); MEAN CORPUSCULAR HGB CONC 34.9 g/dl (32-36); MEAN PLATELET VOLUME 9.4 fL (7.4-10.4); MONO % 5.3 %; NEUT % 69.5 %; PLATELET COUNT 262 K/uL (130-400); WHITE BLOOD COUNT 10.52 K/uL (4.8-10.8)
[2016-09-01 19:14] LABS: ALT/SGPT 31 U/L (12-78); BLOOD UREA NITROGEN 12 mg/dl (7-18); BUN/CREATININE RATIO 14.7 (10-20); CALCIUM 9.5 mg/dl (8.5-10.1); CARBON DIOXIDE 24 mmol/L (21-32); CHLORIDE 104 mmol/L (98-107); CREATININE 0.83 mg/dl (0.60-1.20); GLUCOSE 107 mg/dl (70-99); POTASSIUM 3.6 mmol/L (3.5-5.1); SODIUM 141 mmol/L (136-145)
[2016-09-01 19:19] LABS: ALKALINE PHOSPHATASE 130 U/L (45-117); AST/SGOT 15 U/L (15-37)
--- NOTE | 2016-09-01 19:39 | DIAGNOSTIC IMAGING REPORT ---
CHEST 2 VIEWS ROUTINE CLINICAL HISTORY: Postop fever COMPARISON STUDY: Chest x-ray dated 08/24/2016 FINDINGS: The cardiac and mediastinal contours are normal. There is no evidence of focal pulmonary consolidation. There is no evidence of failure. No pleural effusions are visualized.[ IMPRESSION: No active disease in the chest. Electronically signed by: Leon Mcmillan M.D. 09/01/2016 7:37 PM Dictated Date/Time: 09/01/2016 7:36 PM
[2016-09-01 20:48] LABS: URINE APPEARANCE CLEAR (CLEAR); URINE BILIRUBIN NEG (NEG); URINE COLOR YELLOW; URINE EPITHELIAL CELL AUTO >30 /lpf (0-5); URINE NITRITE NEG (NEG); URINE PH 7.5 (4.5-7.5); UROBILINOGEN NEG (NEG); ZZUR CULT IF INDIC CLEAN CATCH NO
[2016-09-01 20:49] LABS: MANUAL MICROSCOPIC REQUIRED? NO; REVIEW REQ? NO
[2016-09-01] MEDS ORDERED: OPTIRAY 320 IV PRN (21:30)
--- NOTE | 2016-09-01 21:48 | DIAGNOSTIC IMAGING REPORT ---
CT ABD/PELVIS IV AND ORAL CONT CLINICAL HISTORY: Either, diffuse abdominal pain. Nausea. Postop day 8 from a laparoscopic cholecystectomy. COMPARISON STUDY: 05/15/2014 TECHNIQUE: Following the IV administration of 116 mL of Optiray-320, CT scan of the abdomen and pelvis was performed from the lung bases to the proximal femurs. Images are reviewed in the axial, sagittal, and coronal planes. IV contrast was administered without complication. CT DOSE: 1246.15 mGy.cm FINDINGS: Lower chest: The heart is normal in size and configuration, without pericardial effusion. The lung bases and pleural spaces are clear. Liver: The contrast-enhanced liver is normal in size, contour, and attenuation. There is no intrahepatic biliary ductal dilatation. The hepatic veins and portal veins are patent. Gallbladder: Surgically absent. There is a 25 mm fluid collection within the cholecystectomy bed. There is minimal stranding within the pericholecystic fat is likely postsurgical. Spleen: Normal in size and attenuation. Pancreas: Unremarkable. Adrenal glands: Unremarkable. Kidneys: There is symmetric renal cortical enhancement. The kidneys are normal in size without hydronephrosis. There are bilateral nonobstructing renal calculi Bowel: There are no transition zones indicate bowel obstruction. There is no acute diverticulitis. The appendix is not visualized with certainty. There are no findings to indicate acute appendicitis. Peritoneum: There is no intraperitoneal free air or abdominal ascites. Vasculature: The abdominal aorta is normal in course and caliber. Adenopathy: None. Pelvic viscera: The bladder, and pelvic viscera are unremarkable. Skeletal structures: There is mild soft tissue stranding adjacent to the umbilicus likely secondary to a trocar site. There is a small amount of air within the right anterior abdominal wall, likely postsurgical. IMPRESSION: 1. No evidence of bowel obstruction. No evidence of free air 2. Nonobstructing bilateral renal calculi 3. Surgically absent gallbladder. 25 mm fluid collection within the gallbladder fossa likely postsurgical. 4. No evidence of perihepatic fluid. No evidence of ascites. Electronically signed by: Leon Mcmillan M.D. 09/01/2016 9:46 PM Dictated Date/Time: 09/01/2016 9:41 PM
--- NOTE | 2016-09-01 22:41 | History and Physical ---
History & Physical Date & Time of Service: Sep 01, 2016 at 22:26 Chief Complaint: Depression, Anxiety, Shaking, S/P Surgery 1WK Ago Primary Care Physician: Vincent Santiago M.D.([facility]) History of Present Illness Source: patient, family Regina Duncan is a 31 year old femal who presents to ER for one day history RUQ pain with nausea and fever 101. pt denies vomiting, no diarrhea, no jaundice, no dysuria. Past Medical/Surgical History Medical Problems: (1) 23 weeks gestation of Status: Resolved (2) Active labor Status: Resolved (3) Asthma Status: Chronic (4) Flank pain Status: Resolved (5) Hand pain, left Status: Resolved (6) History of - miscarriage Status: Resolved (7) Intractable pain Status: Resolved (8) Intractable pain Status: Resolved (9) Kidney stone on right side Status: Resolved (10) Kidney stone on right side Status: Resolved (11) Kidney stones Status: Resolved (12) Left flank pain Status: Resolved (13) Renal colic Status: Resolved (14) Renal colic Status: Resolved Surgical Problems: (1) History of appendectomy Status: Resolved Family History Diabetes mellitus Heart disease Hypertension Social History Smoking Status: Never Smoker Smokeless Tobacco Use: No Drug Use: none Marital Status: Housing status: lives with family Immunizations History of Influenza Vaccine: Unknown History of Tetanus Vaccine?: Unknown History of Pneumococcal: Unknown History of Hepatitis B Vaccine: Unknown Multi-Drug Resistant Organisms History of MDRO: No Allergies Coded Allergies: Banana (Unverified Allergy, Severe, ANAPHYLAXIS - "TONGUE TINGLES", ) Dust (Verified Allergy, Severe, SNEEZING; MAY HAVE DIFFICULTY BREATHING, 09/01/16) Soy Allergy (Verified Allergy, Severe, ANAPHYLAXIS, 09/01/16) Chenango Seed (Verified Allergy, Severe, ANAPHYLAXIS, 09/01/16) Latex1 -Allergic Contact Dermititis (Verified Allergy, Mild, slight skin irritation, 09/01/16) slight skin irritation Home Medications Scheduled PRN Albuterol Hfa (Ventolin Hfa), 2 PUFFS INH Q4H PRN for SOB/Wheezing Hydrocodone/Acetaminophen 5MG/325MG ([place] 5MG/325MG), 1-2 TABLET PO Q4H PRN for Pain Review of Systems Constitutional: + chills, + fever Eyes: No diplopia, No discharge, No eye pain, No problem reported, No redness, No worsening of vision ENT: No dental problems, No hearing loss, No nasal symptoms, No problem reported, No sore throat, No tinnitus, No trouble swallowing, No unusual epistaxis Respiratory: No cough, No dyspnea at rest, No dyspnea on exertion, No hemoptysis, No problem reported, No shortness of breath, No sputum, No wheezing Cardiovascular: No PND, No chest pain, No claudication, No edema, No orthopnea , No palpitations, No problem reported Abdomen: No GI bleeding, No constipation, No diarrhea, No nausea, No pain, No problem reported, No vomiting Musculoskeletal: No calf pain, No joint pain, No muscle pain, No problem reported, No swelling Genitourinary - Female: No dysmenorrhea, No dysuria, No hematuria, No menorrhagia, No metrorrhagia, No , No problem reported, No rash, No urinary frequency, No urinary incontinence, No urinary retention, No urinary urgency, No vaginal bleeding, No vaginal discharge, No vaginal itching, No vulvodynia Neurologic: No balance problems, No memory loss, No numbness/tingling, No paralysis, No problem reported, No vertigo, No weakness Psychiatric: No anhedonism, No anxiety, No depression symptoms, No insomnia, No problem reported, No substance abuse Endocrine: No excessive thirst, No excessive urination, No fatigue, No problem reported Physical Exam Vital Signs Date Time Temp Pulse Resp B/P Pulse Ox O2 Delivery O2 Flow Rate FiO2 09/01/16 20:23 80 15 109/62 97 Room Air 09/01/16 18:34 93 09/01/16 17:46 36.5 91 20 160/90 100 Room Air General Appearance: WD/WN Head: normocephalic Eyes: normal inspection ENT: normal ENT inspection, hearing grossly normal Neck: supple Respiratory/Chest: chest non-tender, lungs clear, normal breath sounds Cardiovascular: regular rate, rhythm, no edema, no gallop, no JVD Abdomen/GI: normal bowel sounds, non tender, soft, no organomegaly Extremities/Musculoskelatal: normal inspection 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, no motor/sensory deficits Skin: normal color, warm/dry Diagnostics Laboratory Results Results Past 24 Hours Test 09/01/16 18:40 09/01/16 20:05 Range/Units White Blood Count 10.52 4.8-10.8 K/uL Red Blood Count 4.30 4.2-5.4 M/uL Hemoglobin 13.1 12.0-16.0 g/dL Hematocrit 37.5 37-47 % Mean Corpuscular Volume 87.2 80-100 fL Mean Corpuscular Hemoglobin 30.5 25-34 pg Mean Corpuscular Hemoglobin Concent 34.9 32-36 g/dl Platelet Count 262 130-400 K/uL Mean Platelet Volume 9.4 7.4-10.4 fL Neutrophils (%) (Auto) 69.5 % Lymphocytes (%) (Auto) 23.8 % Monocytes (%) (Auto) 5.3 % Eosinophils (%) (Auto) 0.5 % Basophils (%) (Auto) 0.4 % Neutrophils # (Auto) 7.32 1.4-6.5 K/uL Lymphocytes # (Auto) 2.50 1.2-3.4 K/uL Monocytes # (Auto) 0.56 0.11-0.59 K/uL Eosinophils # (Auto) 0.05 0-0.5 K/uL Basophils # (Auto) 0.04 0-0.2 K/uL RDW Standard Deviation 41.4 36.4-46.3 fL RDW Coefficient of Variation 12.9 11.5-14.5 % Immature Granulocyte % (Auto) 0.5 % Immature Granulocyte # (Auto) 0.05 0.00-0.02 K/uL Sodium Level 141 136-145 mmol/L Potassium Level 3.6 3.5-5.1 mmol/L Chloride Level 104 98-107 mmol/L Carbon Dioxide Level 24 21-32 mmol/L Anion Gap 13.0 3-11 mmol/L Blood Urea Nitrogen 12 7-18 mg/dl Creatinine 0.83 0.60-1.20 mg/dl Est Creatinine Clear Calc Drug Dose 118.4 ml/min Estimated GFR () 107.4 Estimated GFR (Non- 92.7 BUN/Creatinine Ratio 14.7 10-20 Random Glucose 107 70-99 mg/dl Calcium Level 9.5 8.5-10.1 mg/dl Total Bilirubin 0.3 0.2-1 mg/dl Direct Bilirubin < 0.1 0-0.2 mg/dl Aspartate Amino Transf (AST/SGOT) 15 15-37 U/L Alanine Aminotransferase (ALT/SGPT) 31 12-78 U/L Alkaline Phosphatase 130 45-117 U/L Total Protein 8.3 6.4-8.2 gm/dl Albumin 4.3 3.4-5.0 gm/dl Lipase 164 73-393 U/L Urine Color YELLOW Urine Appearance CLEAR CLEAR Urine pH 7.5 4.5-7.5 Urine Specific [place] 1.010 1.000-1.030 Urine Protein NEG NEG Urine Glucose (UA) NEG NEG Urine Ketones NEG NEG Urine Occult Blood NEG NEG Urine Nitrite NEG NEG Urine Bilirubin NEG NEG Urine Urobilinogen NEG NEG Urine Leukocyte Esterase MODERATE NEG Urine WBC (Auto) 5-10 0-5 /hpf Urine RBC (Auto) 0-4 0-4 /hpf Urine Hyaline Casts (Auto) 0 0-5 /lpf Urine Epithelial Cells (Auto) >30 0-5 /lpf Urine Bacteria (Auto) NEG NEG Microbiology Results 09/01/16 Blood Culture, Received Pending 09/01/16 Blood Culture, Received Pending Diagnostic Radiology CT scanIMPRESSION: 1. No evidence of bowel obstruction. No evidence of free air 2. Nonobstructing bilateral renal calculi 3. Surgically absent gallbladder. 25 mm fluid collection within the gallbladder fossa likely postsurgical. 4. No evidence of perihepatic fluid. No evidence of ascites. Impression Assessment and Plan IMP S/P laparoscopic cholecystectomy POD 8 WBC normal Total Bilirubin 0.3 Base on pt has no abdominal pain now, I recommend to admit to Hospital overnight , but pt wants to go home I instructed pt, she should come back to ER if she develops severe abdominal pain, nausea, vomiting, fever, pt understood, I answered all questions, base urine wbc5-10, pt moustapha need bactrim 800/160, po bid x 3 days, F/U her surgeon on Saturday, D/W ER attending.
[2016-09-01] MEDS ORDERED: ONDANSETRON HOME PACK 4MG OD TAB PO ONE (23:15)
[2016-09-01] MEDS ORDERED: ONDA4TAB10 SL (23:36)
[2016-09-01 23:48] VITALS: BP 150/68; PULSE 76; O2SAT 97
[2016-09-02] MEDS ORDERED: ACET-1256 PO (17:16)
[2017-01-10] MEDS ORDERED: DIPH1TAB PO (15:35)
== END 2016-09-01 23:49 | disposition home or self-care (01) ==
LOC: C.EDB 17:35 → C.EDA 23:49
DX: R50.9 Fever, unspecified (principal); G89.18 Other acute postprocedural pain; Z90.49 Acquired absence of other specified parts of digestive tract; R11.0 Nausea; F32.9 Major depressive disorder, single episode, unspecified; F41.9 Anxiety disorder, unspecified

== ENCOUNTER 2016-09-02 17:00 | Emergency (ER) | payer OTHER ==
[~2016-09-02] VITALS: Ht 167.6 cm; Wt 111.9 kg
[~2016-09-02 17:00] MED LIST changes: +ONDA4TAB10 SL; +VNTHFA/IN INH
[2016-09-02 17:07] VITALS: TEMP 36.4; Ht 167.6 cm; Wt 111.9 kg
[2016-09-02] MEDS ORDERED: ACET-1256 PO (17:16)
[2016-09-02] MEDS ORDERED: DiphenhydrAMINE HCL 50 MG/ML VIAL IV STA (17:28)
[2016-09-02] MEDS ORDERED: SODIUM CHLORIDE 0.9% 1000ML 1,000 ML IV STA (17:28)
[2016-09-02] MEDS ORDERED: HALOPERIDOL LACTATE 5 MG/ML 1 ML VIAL IM STA (17:28)
[2016-09-02] MEDS ORDERED: ONDANSETRON INJ 2 MG/ML 2 ML VIAL IV STA (17:28)
[2016-09-02] MEDS ORDERED: HYDROmorphone INJ 1 MG/ML SYR IV STA (17:28)
[2016-09-02] MEDS ORDERED: PROCHLORPERAZINE 5 MG/ML 2 ML VIAL IV STA (17:28)
[2016-09-02 17:39] LABS: BASO % 0.2 %; BASO ABS # 0.02 K/uL (0-0.2); COMPLETE YES; EOS % 0.1 %; HEMATOCRIT 37.2 % (37-47); IG% 1.6 %; LYMPH % 22.5 %; LYMPH ABS # 1.83 K/uL (1.2-3.4); MEAN CELL VOLUME 88.6 fL (80-100); MEAN CORPUSCULAR HEMOGLOBIN 30.2 pg (25-34); MEAN CORPUSCULAR HGB CONC 34.1 g/dl (32-36); MEAN PLATELET VOLUME 9.6 fL (7.4-10.4); MONO % 3.9 %; NEUT % 71.7 %; PLATELET COUNT 264 K/uL (130-400); WHITE BLOOD COUNT 8.14 K/uL (4.8-10.8)
[2016-09-02 17:50] LABS: ALT/SGPT 29 U/L (12-78); AST/SGOT 11 U/L (15-37); BUN/CREATININE RATIO 6.8 (10-20); CALCIUM 9.7 mg/dl (8.5-10.1); CARBON DIOXIDE 27 mmol/L (21-32); CHLORIDE 105 mmol/L (98-107); CREATININE 0.86 mg/dl (0.60-1.20); GLUCOSE 148 mg/dl (70-99); POTASSIUM 3.6 mmol/L (3.5-5.1); SODIUM 143 mmol/L (136-145)
[2016-09-02 17:51] LABS: ALKALINE PHOSPHATASE 124 U/L (45-117)
[2016-09-02 18:30] LABS: URINE APPEARANCE CLEAR (CLEAR); URINE BILIRUBIN NEG (NEG); URINE COLOR YELLOW; URINE EPITHELIAL CELL AUTO 0-5 /lpf (0-5); URINE NITRITE NEG (NEG); UROBILINOGEN NEG (NEG); ZZURINE CULT IF INDIC CATH NO
[2016-09-02 18:34] LABS: MANUAL MICROSCOPIC REQUIRED? NO; REVIEW REQ? NO
[2016-09-02 18:45] LABS: BLOOD UREA NITROGEN 6 mg/dl (7-18)
--- NOTE | 2016-09-02 20:12 | EMERGENCY ROOM VISIT NOTE ---
History Report prepared by Sohail: Kenna Sam Under the Supervision of: Dr. Dell Francis M.D. First contact with patient: 17:23 Chief Complaint: ABDOMINAL PAIN Stated Complaint: AB PAIN Nursing Triage Summary: pt arrives via EMS from home had cholecystectomy 10 days ago, then 2 days ago started with NVD, then 1 day ago increased abdominal pain RUQ and low abdomen with radiation to low back, ++ urinary sx pain with back pressure X 1 week" pt reports taking tylenol 1Gram every 4 hours X 3 days and zofran pt reports 3 BMS today History of Present Illness The patient is a 31 year old female who presents to the Emergency Room with complaints of worsening lower abdominal pain for the past 2 days. She had a cholecystectomy 10 days ago and then two days ago developed nausea, vomiting, and abdominal pain. She was in the ED for her abdominal pain yesterday and was discharged home. The patient returns today with worsening pain. She rates her current pain as an 8/10 in severity. She states, "It feels like the pain is in my bladder." Her pain radiates into her lower back. She is still feeling nauseated and states that the Zofran is not helping. The patient had a temperature of 100.3 this afternoon and has been taking Tylenol every 4 hours. Source of History: patient Onset: 2 days ago Position: abdomen Symptom Intensity: 8/10 Quality: other (radiating) Timing: worsening Modifying Factors (Relieving): tylenol Associated Symptoms: + back pain, + fevers, + nausea, + vomiting Review of Systems See HPI for pertinent positives & negatives. A total of 10 systems reviewed and were otherwise negative. Past Medical & Surgical Medical Problems: (1) 23 weeks gestation of (2) Active labor (3) Asthma (4) Cholecystitis (5) Flank pain (6) Hand pain, left (7) History of - miscarriage (8) Intractable pain (9) Intractable pain (10) Kidney stone on right side (11) Kidney stone on right side (12) Kidney stones (13) Left flank pain (14) Renal colic (15) Renal colic Surgical Problems: (1) History of appendectomy Family History Diabetes mellitus Heart disease Hypertension Social History Smoking Status: Never Smoker Drug Use: none Marital Status: Housing Status: lives with family Current/Historical Medications Scheduled Ondasetron Odt (Zofran Odt), 4 MG SL Q6H Scheduled PRN Acetaminophen (Tylenol), 1,000 MG PO Q4 PRN for Pain Albuterol Hfa (Ventolin Hfa), 2 PUFFS INH Q4H PRN for SOB/Wheezing Hydrocodone/Acetaminophen 5MG/325MG ([place] 5MG/325MG), 1-2 TABLET PO Q4H PRN for Pain Allergies Coded Allergies: Banana (Unverified Allergy, Severe, ANAPHYLAXIS - "TONGUE TINGLES", ) Dust (Verified Allergy, Severe, SNEEZING; MAY HAVE DIFFICULTY BREATHING, 09/02/16) Soy Allergy (Verified Allergy, Severe, ANAPHYLAXIS, 09/02/16) [place] Seed (Verified Allergy, Severe, ANAPHYLAXIS, 09/02/16) Latex1 -Allergic Contact Dermititis (Verified Allergy, Mild, slight skin irritation, 09/02/16) slight skin irritation Physical Exam Vital Signs Date Time Temp Pulse Resp B/P Pulse Ox O2 Delivery O2 Flow Rate FiO2 09/02/16 19:00 74 19 140/80 98 Room Air 09/02/16 17:07 36.4 84 18 131/80 98 Room Air Physical Exam CONSTITUTIONAL: Moderate anxiety, painful nauseous distress. HEENT: No icterus, moist mucous membranes NECK: No meningismus, trachea is midline. CARDIOVASCULAR: Regular rate, normal perfusion RESPIRATORY: Unlabored breathing. Clear to auscultation. GASTROINTESTINAL: Mild diffuse lower abdominal tenderness. GENITOURINARY: No flank tenderness MUSCULOSKELETAL: Full range of motion NEUROLOGIC: No acute gross focal deficits. PSYCHIATRIC: Normal affect SKIN: Normal for ethnicity. Medical Decision & Procedures Laboratory Results 09/02/16 16:50 Red Blood Count 4.20, Mean Corpuscular Volume 88.6, Mean Corpuscular Hemoglobin 30.2, Mean Corpuscular Hemoglobin Concent 34.1, Mean Platelet Volume 9.6, Neutrophils (%) (Auto) 71.7, Lymphocytes (%) (Auto) 22.5, Monocytes (%) (Auto) 3.9, Eosinophils (%) (Auto) 0.1, Basophils (%) (Auto) 0.2, Neutrophils # (Auto) 5.83, Lymphocytes # (Auto) 1.83, Monocytes # (Auto) 0.32, Eosinophils # (Auto) 0.01, Basophils # (Auto) 0.02 09/02/16 16:50 Test 09/02/16 16:50 09/02/16 17:55 White Blood Count 8.14 K/uL (4.8-10.8) Red Blood Count 4.20 M/uL (4.2-5.4) Hemoglobin 12.7 g/dL (12.0-16.0) Hematocrit 37.2 % (37-47) Mean Corpuscular Volume 88.6 fL (80-100) Mean Corpuscular Hemoglobin 30.2 pg (25-34) Mean Corpuscular Hemoglobin Concent 34.1 g/dl (32-36) Platelet Count 264 K/uL (130-400) Mean Platelet Volume 9.6 fL (7.4-10.4) Neutrophils (%) (Auto) 71.7 % Lymphocytes (%) (Auto) 22.5 % Monocytes (%) (Auto) 3.9 % Eosinophils (%) (Auto) 0.1 % Basophils (%) (Auto) 0.2 % Neutrophils # (Auto) 5.83 K/uL (1.4-6.5) Lymphocytes # (Auto) 1.83 K/uL (1.2-3.4) Monocytes # (Auto) 0.32 K/uL (0.11-0.59) Eosinophils # (Auto) 0.01 K/uL (0-0.5) Basophils # (Auto) 0.02 K/uL (0-0.2) RDW Standard Deviation 42.5 fL (36.4-46.3) RDW Coefficient of Variation 13.2 % (11.5-14.5) Immature Granulocyte % (Auto) 1.6 % Immature Granulocyte # (Auto) 0.13 K/uL (0.00-0.02) Anion Gap 11.0 mmol/L (3-11) Est Creatinine Clear Calc Drug Dose 118.0 ml/min Estimated GFR () 102.9 Estimated GFR (Non- 88.8 BUN/Creatinine Ratio 6.8 (10-20) Calcium Level 9.7 mg/dl (8.5-10.1) Total Bilirubin 0.3 mg/dl (0.2-1) Direct Bilirubin < 0.1 mg/dl (0-0.2) Aspartate Amino Transf (AST/SGOT) 11 U/L (15-37) Alanine Aminotransferase (ALT/SGPT) 29 U/L (12-78) Alkaline Phosphatase 124 U/L (45-117) Total Protein 7.8 gm/dl (6.4-8.2) Albumin 4.0 gm/dl (3.4-5.0) Lipase 156 U/L (73-393) Procalcitonin < 0.05 ng/mL (0-0.5) Urine Color YELLOW Urine Appearance CLEAR (CLEAR) Urine pH 7.0 (4.5-7.5) Urine Specific [place] 1.000 (1.000-1.030) Urine Protein NEG (NEG) Urine Glucose (UA) NEG (NEG) Urine Ketones NEG (NEG) Urine Occult Blood NEG (NEG) Urine Nitrite NEG (NEG) Urine Bilirubin NEG (NEG) Urine Urobilinogen NEG (NEG) Urine Leukocyte Esterase NEG (NEG) Urine WBC (Auto) 0 /hpf (0-5) Urine RBC (Auto) 0-4 /hpf (0-4) Urine Hyaline Casts (Auto) 0 /lpf (0-5) Urine Epithelial Cells (Auto) 0-5 /lpf (0-5) Urine Bacteria (Auto) NEG (NEG) Labs reviewed by ED physician. Medications Administered Medications (Trade) Dose Ordered Sig/Dia Route Start Time Stop Time Status Last Admin Dose Admin Prochlorperazine Edisylate (Compazine Inj) 10 mg NOW STAT IV 09/02/16 17:28 09/02/16 17:30 DC 09/02/16 18:57 10 MG Diphenhydramine HCl 25 mg 25 mg NOW STAT IV 09/02/16 17:28 09/02/16 17:30 DC 09/02/16 18:57 25 MG Sodium Chloride (Nss 1000ml) 1,000 ml @ 0 mls/hr Q0M STAT IV 09/02/16 17:28 09/02/16 17:30 DC 09/02/16 18:58 999 MLS/HR Ondansetron HCl (Zofran Inj) 4 mg NOW STAT IV 09/02/16 17:28 09/02/16 17:30 DC 09/02/16 18:57 4 MG ED Course 1723: Past medical records reviewed. The patient was evaluated in room C5. A complete history and physical examination was performed. 1728: Haldol 5 mg IM - pt refused, Zofran 4 mg IV, NSS 1000 ml wide open IV, Dilaudid 1 mg IV -pt refused, Benadryl 25 mg IV, Compazine 10 mg IV 1932: I spoke with Dr. Suarez. We discussed the patients results and treatment plan. [facility]. 1934: I reassessed the patient at this time. She is resting more comfortably. I discussed the results and treatment plan with the patient. I answered all pertaining questions that she had. She expressed understanding and verbalized agreement. Medical Decision 31-year-old presents to the emergency department for evaluation of recurrent mild to moderate diffuse abdominal pain mostly in the lower quadrants today. She is noted to be status post laparoscopic cholecystectomy and had presented to the emergency room last night. CT scan had and pelvis last night was normal and surgical consultation was obtained in the ER with Dr. Beltran. There is felt to be no acute surgical issues. Patient continued to complain of nausea and abdominal pain and after consultation with the hospitalist as well as serial examinations patient ultimately chose to leave. There continues to be a question of a low-grade fever as high as 100.3 over the last few days and patient continues to concern over the possibility of bacteria in her kidneys given her known struvite stones. She subjectively continues to complain of significant distress although her objective physical exam and laboratory assessments are within normal limits. I attempted to arrange outpatient follow- up will patient stated she felt too unwell to go home. Therefore, consultation with carlos. Sharon was obtained and we both agree that it is safe to discharge patient at this time. Dr. Suarez will facilitate outpatient follow-up and [facility] PCP. Consults Time Called: 1930 Consulting Physician: Dr. Suarez Returned Call: [address] Suarez. We discussed the patients results and treatment plan. [facility]. Impression Primary Impression: Abdominal pain of unknown cause Additional Impression: Nausea Scribe Attestation The scribe's documentation has been prepared under my direction and personally reviewed by me in its entirety. I confirm that the note above accurately reflects all work, treatment, procedures, and medical decision making performed by me. Departure Information Dispostion Being Evaluated By Hospitalist Referrals Vincent Santiago M.D.([facility]) (PCP) Patient Instructions My [facility] Problem Qualifiers
[2016-09-02 20:20] VITALS: BP 128/77; PULSE 77; O2SAT 98
--- NOTE | 2016-09-03 07:12 | CONSULTATION REPORT ---
DATE OF CONSULTATION: 09/02/2016 PRIMARY CARE PHYSICIAN: Dr. Santiago. CONSULT REQUESTED BY: Dr. Francis, the ER physician. REASON FOR CONSULT: Ongoing abdominal pain status post laparoscopic cholecystectomy with nephrolithiasis. HISTORY OF PRESENT COMPLAINT: She is a 31-year-old female with significant past medical history of asthma well controlled, allergic rhinitis, esophageal reflux, and nephrolithiasis. Apparently underwent laparoscopic cholecystectomy on 6th of this month. She was sent home in due time but she came back to ER yesterday with ongoing abdominal pain, nausea and vomiting but no fever. She has had a CAT scan of the abdomen and pelvis that did not show any significant finding in the abdomen except bilateral nephrolithiasis and white count of 13,000. She got 1 dose of Zosyn, but she did not have any fever or any hemodynamic instability in the Emergency Room and she was seen by the on-call surgeon and advised to go home and she went home yesterday. She came back today with abdominal pain, some nausea but no vomiting. This time pain was in the hypogastric region but no dysuria and no nausea, vomiting. No fever, chills or rigors associated with it. She is generally weak and lethargic and her pain is controlled with Tylenol. Again this time, she was hemodynamically stable and blood counts totally unremarkable, especially white count came down to normal. UA examination did not show any significant change. PAST MEDICAL HISTORY: Significant for well controlled asthma, allergic rhinitis, esophageal reflux, and nephrolithiasis. PAST SURGICAL HISTORY: Significant for a laparoscopic cholecystectomy that was done on 6th of this month. FAMILY HISTORY: Father has endocrine disorder and high cholesterol. Paternal grandparents had heart disorder. SOCIAL HISTORY: She is . She has 4 living children. She does not smoke and does not use any tobacco and she has been reasonably ambulant. ALLERGIES: SHE IS ALLERGIC TO BANANA, DUST, SOY ALLERGY, SUNFLOWER SEEDS AND LATEX. MEDICATIONS: As an outpatient, she has been on Tylenol 1 g q. 4 hourly p.r.n., albuterol HFA 2 puffs q. 4 hourly p.r.n., hydrocodone and acetaminophen 1-2 tablets q. 4 hourly p.r.n., Zofran 4 mg sublingual 6 hourly as needed. REVIEW OF SYSTEMS: Total 10-point review of systems unremarkable. PHYSICAL EXAMINATION: GENERAL: On examination in the Emergency Room, she was not having any acute distress. VITAL SIGNS: Temperature 36.4, pulse 74, blood pressure 140/80, saturation 98% on room air. HEENT: Unremarkable. NECK: Supple. No JVD, no bruit. CHEST: Clear to auscultation bilaterally. HEART: S1, S2 regular, no murmur. ABDOMEN: Soft, benign, mildly tender in the upper abdomen and also in the hypogastrium. Bowel sounds present. EXTREMITIES: Negative for any edema. MUSCULOSKELETAL SYSTEM: Examination did not show any acute arthritis involving any joint. CENTRAL NERVOUS SYSTEM: She was alert, awake, oriented x3, no focal sensory and/or motor deficit appreciated. LABORATORY DATA: Noted today white count was 8.14, H\T\H 12.7/37.2, platelet was 264. Sodium 143, potassium 3.6, chloride 105, carbon dioxide 27, BUN 6, creatinine 0.86. LFTs unremarkable. Glucose was 148 and procalcitonin 0.05. UA examination: Negative leuk esterase, white cell 0, and urine bacteria 0. CAT scan of the abdomen and pelvis that was done yesterday did not show any significant findings except bilateral nephrolithiasis. IMPRESSION AND PLAN: 1. Status post laparoscopic cholecystectomy on 24 of August. The patient is having ongoing abdominal pain which seems to be controlled with Tylenol. She does have bilateral nephrolithiasis. A small stone may be passing through the ureter and in the bladder, causing some problem but no hematuria and no acute pain at this time. The case was explained with the patient and the . She is not having any acute symptoms or acute infection that she will need an intravenous antibiotic while in the hospital or any IV fluid. They understood and they decided to go home. 2. Asthma seems to be stable at this time. 3. Nephrolithiasis bilateral. No evidence of ureteric stone and no stone in the bladder and UA examination is unremarkable. 4. Reflux. Controlled right now. 5. In my clinical assessment, the beneficiary will not need any extra care in the hospital. We will make an appointment with her primary care physician in a day or two for another evaluation as an outpatient and she was advised to see Dr. Cordova, her urologist for bilateral nephrolithiasis, which she has an appointment on Saturday. She was advised that she can go home from here. Thank you for this consultation. TIFFANIE
[2017-01-10] MEDS ORDERED: DIPH1TAB PO (15:35)
== END 2016-09-02 20:20 | disposition home or self-care (01) ==
LOC: EDBD 17:00 → C.EDC 17:02
DX: R10.30 Lower abdominal pain, unspecified (principal); R11.0 Nausea; N20.0 Calculus of kidney; Z90.49 Acquired absence of other specified parts of digestive tract; J45.909 Unspecified asthma, uncomplicated; K21.9 Gastro-esophageal reflux disease without esophagitis; Z83.3 Family history of diabetes mellitus; Z82.49 Family history of ischemic heart disease and other diseases of the circulatory system

== ENCOUNTER → 2016-10-01 | Outpatient (CLI) | payer OTHER ==
[~2016-10-01] MED LIST changes: +ACET-1256 PO; +CLR10 PO; +CYAN10005 PO; +DIPH1TAB PO; +EPP3/2 IM; +PRED20TA PO; +PRENTAB26 PO; +RANI1TAB75 PO; +ZNTT/150 PO
== END | disposition home or self-care (01) ==
LOC: C.LAB 15:03
PROVIDERS: ATTEND Urology
DX: N39.0 Urinary tract infection, site not specified (principal)

== ENCOUNTER → 2016-10-05 | Outpatient (CLI) | payer OTHER ==
--- NOTE | 2016-10-05 13:46 | DIAGNOSTIC IMAGING REPORT ---
ULTRASOUND KIDNEYS AND BLADDER CLINICAL HISTORY: Dysuria. COMPARISON STUDY: Abdominal CT dated 09/01/2016. TECHNIQUE: Real-time, grayscale, and color flow sonography of the kidneys and bladder is performed. Images are reviewed in the transverse and longitudinal planes. FINDINGS: Kidneys: The kidneys are normal in size and echotexture. The right kidney measures 12.0 x 5.2 x 6.9 cm and the left kidney measures 11.3 x 6.7 x 6.2 cm. There is no hydronephrosis. At least 2 small nonobstructing right renal calculi are identified. There is no sonographic evidence of contour deforming renal mass lesion. No perinephric fluid is identified. Bladder: The bladder is normal in appearance. Bilateral ureteral jets were seen. Abdomen: Survey images of the liver show hepatomegaly and hepatic steatosis. IMPRESSION: 1. The kidneys are normal in size and without hydronephrosis. 2. The bladder is normal as visualized. 3. Small nonobstructing right renal calculi are identified. Electronically signed by: Devon Hawk M.D. 10/05/2016 1:44 PM Dictated Date/Time: 10/05/2016 1:43 PM
== END | disposition home or self-care (01) ==
LOC: C.ULTR 12:59
PROVIDERS: ATTEND Urology
DX: R39.9 Unspecified symptoms and signs involving the genitourinary system (principal)

== ENCOUNTER → 2016-10-17 | Outpatient (CLI) | payer OTHER | END | disposition home or self-care (01) | LOC: C.LABSPEC 17:04 | PROVIDERS: ATTEND Urology | DX: N39.0 Urinary tract infection, site not specified (principal) ==

== ENCOUNTER 2017-01-10 14:47 | Emergency (ER) | payer OTHER ==
[~2017-01-10] VITALS: Ht 165.1 cm; Wt 98.6 kg
[~2017-01-10 14:47] MED LIST changes: -CLR10 PO; -CYAN10005 PO; -DIPH1TAB PO; -EPP3/2 IM; -PRED20TA PO; -PRENTAB26 PO; -RANI1TAB75 PO; -ZNTT/150 PO
[2017-01-10 14:54] VITALS: TEMP 36.7; Ht 165.1 cm; Wt 98.6 kg
[2017-01-10] MEDS ORDERED: RANITIDINE HCL 50 MG/100 ML D5W IV STA (15:25)
[2017-01-10] MEDS ORDERED: EpINEphrine INJ 1MG/ML AMP 1 MG/ML AMP IM STA (15:25)
[2017-01-10] MEDS ORDERED: ONDANSETRON INJ 2 MG/ML 2 ML VIAL IV STA (15:25)
[2017-01-10] MEDS ORDERED: DiphenhydrAMINE HCL 50 MG/ML VIAL IV STA (15:25)
[2017-01-10] MEDS ORDERED: SODIUM CHLORIDE 0.9% 1000ML 1,000 ML IV STA (15:25)
[2017-01-10] MEDS ORDERED: METHYLPREDNISOLONE 125 MG VIAL IV STA (15:25)
[2017-01-10] MEDS ORDERED: ZNTT/150 PO (15:35)
[2017-01-10] MEDS ORDERED: CLR10 PO (15:35)
[2017-01-10] MEDS ORDERED: RANI1TAB75 PO (15:35)
[2017-01-10] MEDS ORDERED: PRENTAB26 PO (15:35)
[2017-01-10] MEDS ORDERED: CYAN10005 PO (15:35)
[2017-01-10] MEDS ORDERED: DIPH1TAB87 PO (15:35)
[2017-01-10 17:06] VITALS: BP 123/75; PULSE 66; O2SAT 99
[2017-01-10] MEDS ORDERED: PRED20TA PO (18:08)
--- NOTE | 2017-01-11 01:10 | EMERGENCY ROOM VISIT NOTE ---
ED Visit Note First contact with patient: 15:03 Chief Complaint: I think having allergic reaction. History of Present Illness: Ms. Duncan is a 31-year-old white female who ambulates into the ED complaining of a possible allergic reaction. Patient reports for the last 36 hours she has been having sensations of throat pain, shortness of breath, itchy skin, swollen lips and tongue. These symptoms have waxed and waned in intensity based on if she was taking Benadryl, Zantac or Claritin. She did call to the seen at the [facility] but was unsuccessful and was encouraged to come to the ED. She is not exactly sure what she could've been exposed to to cause her current symptoms. As previously noted they have waxed and waned in intensity to the medication she is taken. Currently reports she is feeling better after taking Benadryl approximately 6 hours ago. Her actual complaint is a throat pain, tongue swelling, lip swelling and itchy skin primarily on the face and neck. She places her throat pain over the lateral aspect of the left neck at the level of the ladder next. She has difficulty describing the discomfort. She rates her discomfort 5/10. Her pain worsens with palpation and swallowing. She has not identified any alleviating factors related to this discomfort. Associated with her symptoms she does report that intermittently she has been nauseated but has not vomited. She denies fevers, chills, sweats, headache, dizziness, inability to swallow, painful talking, drooling, cough, wheezing, chest pain, palpitations, abdominal pain, previous clots, claudication, cramping. Review of Systems: As noted above in history of present illness. All body systems were reviewed and found to be negative as noted above. Past Medical History: Unspecified kidney disease, asthma, GERD, unspecified urinary problems, kidney stones, status post cholecystectomy. Current Medications: Medications Dose Route/Sig Max Daily Dose Days Date Category Dose Instructions Benadryl Allergy (Diphenhydramine Hcl) 25 Mg Tab 25 Mg PO DAILY PRN 01/10/17 Reported Claritin (Loratadine) 10 Mg Tab 10 Mg PO DAILY 01/10/17 Reported Vitamin (Prenat Multivit/[place]/Iron/Folic Ac) Tab 1 Tab PO DAILY 01/10/17 Reported Vitamin B-12 (Cyanocobalamin) 1,000 Mcg Tab 1,000 Mcg PO DAILY 01/10/17 Reported Ranitidine 75 (Ranitidine HCl) 75 Mg Tab 75 Mg PO BID PRN 01/10/17 Reported Zantac (Ranitidine HCl) 150 Mg Tab 150 Mg PO BID PRN 01/10/17 Reported Ventolin Hfa (Albuterol) 200 Puffs/13125 Mcg Aers 2 Puffs INH Q4H PRN 09/01/16 Reported Allergies to Medications: Patient denies. Social History: Patient is not employed; she lives with her and children and feels safe in her home environment; she denies tobacco and alcohol use. Physical Examination: Vital Signs: Date Time Temp Pulse Resp B/P Pulse Ox O2 Delivery O2 Flow Rate FiO2 01/10/17 17:06 66 18 123/75 99 Room Air 01/10/17 16:27 81 16 119/85 100 Room Air 01/10/17 15:45 81 16 142/92 100 Room Air 01/10/17 15:03 99 Room Air 01/10/17 14:54 36.7 69 18 150/80 100 Room Air GENERAL: 31-year-old female in mild distress due to symptoms, nontoxic-appearing , afebrile and hemodynamically stable. Patient is very anxious. NEUROLOGICAL: Awake, alert and oriented to person, place and time. Answering questions appropriately and following commands. Normal gait. Good hand eye coordination. No focal motor or sensory deficits. SKIN: Warm, dry and mildly erythematous. No soft tissue eruptions noted. Positive dermatographia with welt and flare. HEENT: Atraumatic and normocephalic. PERRLA. Sclera white and conjunctiva pink. No drainage from naris. Oral cavity moist and pink. Airway is patent. Pharynx is nonerythematous or edematous. No auditory or auscultatory stridor. Speech normal. No lymphadenopathy. Trachea midline. Mild tenderness over the left side of the laryngitis without signs of trauma, swelling or erythema. No jugular venous distention. THORAX: Lungs sounds are clear to auscultation and equal bilaterally with symmetrical chest wall. No wheezing, rales or rhonchi. No crepitus, tenderness , subcutaneous air or deformities noted. He no increased respiratory effort or rate. HEART: Regular rate and rhythm. No gallops, rubs or murmurs are appreciated. ABDOMEN: Flat, soft and nontender. Positive bowel sounds in all quadrants. No guarding, rigidity or organomegaly. EXTREMITIES: Moves all extremities well on command and with purpose. All distal neurovascular statuses are intact and equal bilaterally. ED Course: Patient is assessed as noted above. An IV lock was initiated and patient was hydrated with normal saline. She was given 125 mg of Solu-Medrol IV, 50 mg of Benadryl IV and 50 mg of ranitidine IV. She was offered epinephrine and refused. Patient was reassessed multiple times during her stay in the emergency department. After receiving her IV Benadryl Solu-Medrol and Zantac I was called to her room and she reported that she was feeling dizziness and shaky. On subsequent reevaluation's she reported resolution his shaking but still felt slightly dizzy. Patient was observed for just under 2 hours and had improvement of all symptoms including throat pain. Patient was educated about today's findings and instructed on her treatment plan ; she verbalizes understanding and agreement with this plan. Clinical Impression: Allergic reaction. Disposition: Patient discharged home in stable condition accompanied by her ; prior to departure she was reassessed and subjectively reported she had resolution of throat discomfort, nausea, shaking and itchy skin. Plan: Patient was prescribed a prednisone taper. Patient was encouraged use 50-25 mg of Benadryl every 6 hours until resolution of all symptoms. Patient was encouraged use 150 mg of Zantac every 12 hours until resolution of all symptoms. 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 Patient was encouraged return ED for worsening symptoms, shortness of breath/ wheezing, worsening throat discomfort or any new/concerning symptoms.
== END 2017-01-10 18:30 | disposition home or self-care (01) ==
LOC: C.EDB 14:48
DX: T78.40XA Allergy, unspecified, initial encounter (principal); X58.XXXA Exposure to other specified factors, initial encounter; N18.9 Chronic kidney disease, unspecified; K21.9 Gastro-esophageal reflux disease without esophagitis; J45.909 Unspecified asthma, uncomplicated; Z87.442 Personal history of urinary calculi; Z90.49 Acquired absence of other specified parts of digestive tract

== ENCOUNTER 2017-01-14 22:23 | Emergency (ER) | payer OTHER ==
[~2017-01-14] VITALS: Ht 165.1 cm; Wt 94.9 kg
[~2017-01-14 22:23] MED LIST changes: -ACET-1256 PO; +CLR10 PO; +CYAN10005 PO; +DIPH1TAB87 PO; -HYDR-5688 PO; -ONDA4TAB10 SL; +PRED20TA PO; +PRENTAB26 PO; +RANI1TAB75 PO; +ZNTT/150 PO
[2017-01-14 22:29] VITALS: TEMP 36.6; Ht 165.1 cm; Wt 94.9 kg
[2017-01-14] MEDS ORDERED: LIDOCAINE HCL 2% VISC SOLN 20 ML UDC PO STA (23:23)
[2017-01-14] MEDS ORDERED: SODIUM CHLORIDE 0.9% 1000ML 1,000 ML IV STA (23:23)
[2017-01-14] MEDS ORDERED: ALBUT/IPRATROP 3MG/0.5MG NEB 3 ML VIAL INH STA (23:23)
[2017-01-14] MEDS ORDERED: ALUMINUM/MAGNESIUM SUSP 30 ML UDC PO STA (23:23)
[2017-01-14] MEDS ORDERED: DiphenhydrAMINE HCL 50 MG/ML VIAL IV STA (23:32)
[2017-01-14 23:58] VITALS: O2SAT 98
[2017-01-15] LABS: BASO % 0.2 %; BASO ABS # 0.02 K/uL (0-0.2); COMPLETE YES; HEMATOCRIT 43.2 % (37-47); IG% 0.4 %; LYMPH % 18.1 %; LYMPH ABS # 2.02 K/uL (1.2-3.4); MEAN CELL VOLUME 87.4 fL (80-100); MEAN CORPUSCULAR HGB CONC 34.3 g/dl (32-36); MONO % 7.8 %; NEUT % 73.5 %; PLATELET COUNT 283 K/uL (130-400); RED BLOOD COUNT 4.94 M/uL (4.2-5.4); WHITE BLOOD COUNT 11.13 K/uL (4.8-10.8)
[2017-01-15 00:18] LABS: BUN/CREATININE RATIO 17.3 (10-20); CALCIUM 9.8 mg/dl (8.5-10.1); MAGNESIUM 2.4 mg/dl (1.8-2.4); POTASSIUM 3.4 mmol/L (3.5-5.1)
[2017-01-15 00:19] LABS: PREG INTERNAL NEGATIVE QC NEG CLEAR BACKGROUND; PREG INTERNAL POSITIVE QC POS CONTROL LINE
[2017-01-15 00:29] LABS: THYROID STIMULATING HORMONE 1.32 uIu/ml (0.300-4.500)
[2017-01-15] MEDS ORDERED: LORAZEPAM 2 MG/ML 1 ML VIAL IV STA (00:50)
[2017-01-15] MEDS ORDERED: ATIVAN 1MG HOMEPACK PO ONE (01:00)
[2017-01-15 02:03] VITALS: BP 128/75; PULSE 82; O2SAT 95
--- NOTE | 2017-01-15 02:44 | EMERGENCY ROOM VISIT NOTE ---
History First contact with patient: 22:37 Chief Complaint: OTHER COMPLAINT Stated Complaint: REACTION TO MEDS - FAST HEARTBEAT, SHAKING History of Present Illness The patient is a 31 year old female who presents to the Emergency Room with complaints of feeling shaky, spacey, lightheaded for the past few days after starting prednisone for seasonal allergies. Patient was instructed to take prednisone 20 mg 3 times a day and then taper down. Patient called her family care doctor was advised to take Claritin today. She states this helped with some of her allergy symptoms. Patient also complains of cough and acid reflux of burning sensation in her throat. Patient is on Zantac. Patient does not normally take prednisone and has not taken this before. Patient tried her inhaler with some improvement of her breathing. Patient denies chest pain, abdominal pain, dyspnea, leg pain or swelling, fever, chills, numbness, tingling. Patient states she does not like the way she feels as taking the prednisone. Patient states she's appointment tomorrow at 8:45 AM with her family care doctor. Patient has a long-standing history of reflux and is on daily Zantac. She has not seen a GI doctor for this or had an endoscopy. Review of Systems See HPI for pertinent positives & negatives. A total of 10 systems reviewed and were otherwise negative. Past Medical/Surgical History Medical Problems: (1) 23 weeks gestation of (2) Active labor (3) Asthma (4) Cholecystitis (5) Flank pain (6) Hand pain, left (7) History of - miscarriage (8) Intractable pain (9) Intractable pain (10) Kidney stone on right side (11) Kidney stone on right side (12) Kidney stones (13) Left flank pain (14) Renal colic (15) Renal colic Surgical Problems: (1) History of appendectomy Family History Diabetes mellitus Heart disease Hypertension Social History Smoking Status: Never Smoker Drug Use: none Marital Status: Housing Status: lives with family Current/Historical Medications Scheduled Cyanocobalamin (Vitamin B-12), 1,000 MCG PO DAILY Loratadine (Claritin), 10 MG PO DAILY Multivit/Min/Iron/Fol Ac/Pren ( Vitamin), 1 TAB PO DAILY Prednisone (Prednisone), 0 PO DAILY Scheduled PRN Albuterol Hfa (Ventolin Hfa), 2 PUFFS INH Q4H PRN for SOB/Wheezing Diphenhydramine Hcl (Benadryl Allergy), 25 MG PO DAILY PRN for PRN Ranitidine (Zantac), 150 MG PO BID PRN for PRN Ranitidine HCl (Ranitidine 75), 75 MG PO BID PRN for PRN Allergies Coded Allergies: Banana (Unverified Allergy, Severe, ANAPHYLAXIS - "TONGUE TINGLES", ) Dust (Verified Allergy, Severe, SNEEZING; MAY HAVE DIFFICULTY BREATHING, 01/14/17) Soy Allergy (Verified Allergy, Severe, ANAPHYLAXIS, 01/14/17) [place] Seed (Verified Allergy, Severe, ANAPHYLAXIS, 01/14/17) Latex1 -Allergic Contact Dermititis (Verified Allergy, Mild, slight skin irritation, 01/14/17) slight skin irritation Wasp (Unverified Allergy, Unknown, HIVES, SOB, 01/14/17) Physical Exam Vital Signs Date Time Temp Pulse Resp B/P Pulse Ox O2 Delivery O2 Flow Rate FiO2 01/15/17 02:03 82 18 128/75 95 Room Air 01/15/17 00:32 85 18 127/90 100 Room Air 01/15/17 00:12 90 01/14/17 23:58 98 Room Air 01/14/17 23:58 98 Room Air 01/14/17 22:29 36.6 109 18 141/88 97 Room Air Physical Exam VITALS: Vitals are noted on the nurse's note and reviewed by myself. Vital signs stable. GENERAL: White female anxious-appearing, in no acute distress, nondiaphoretic, well-developed well-nourished. SKIN: The skin was without rashes, erythema, edema, or bruising. There is no tenting of the skin. Capillary reflex less than 2 seconds. HEAD: Normocephalic atraumatic. EARS: External auditory canals clear, tympanic membranes pearly correa without erythema or effusion bilaterally. EYES: Pupils equal round and reactive to light and accommodation. Conjunctivae without injection, sclerae without icterus. Extraocular movements intact. NOSE: Patent, turbinates without inflammation or discharge. No sinus tenderness. MOUTH: Mucous membranes moist. Pharynx without erythema or exudate. Uvula midline. Airway patent. Tongue does not deviate. NECK: Supple without nuchal rigidity. No lymphadenopathy. No thyromegaly. Cervical spine is nontender. No JVD. HEART: Regular rate and rhythm without murmurs gallops or rubs. LUNGS: Clear to auscultation bilaterally without wheezes, rales or rhonchi. No dullness to percussion. No retractions or accessory muscle use. ABDOMEN: Positive bowel sounds x 4. Normal tympanic percussion. Soft, nontender, without masses or organomegaly. Clancy sign negative. No guarding or rebound tenderness. MUSCULOSKELETAL: No muscle atrophy, erythema, or edema noted. NEURO: Patient was alert and oriented to person place and time. Normal sensation to light and sharp touch. No focal neurological deficits. Medical Decision & Procedures Laboratory Results 01/14/17 23:45 Red Blood Count 4.94, Mean Corpuscular Volume 87.4, Mean Corpuscular Hemoglobin 30.0, Mean Corpuscular Hemoglobin Concent 34.3, Mean Platelet Volume 10.0, Neutrophils (%) (Auto) 73.5, Lymphocytes (%) (Auto) 18.1, Monocytes (%) (Auto) 7.8, Eosinophils (%) (Auto) 0.0, Basophils (%) (Auto) 0.2, Neutrophils # (Auto) 8.18, Lymphocytes # (Auto) 2.02, Monocytes # (Auto) 0.87, Eosinophils # (Auto) 0.00, Basophils # (Auto) 0.02 01/14/17 23:45 Test 01/14/17 23:45 White Blood Count 11.13 K/uL (4.8-10.8) Red Blood Count 4.94 M/uL (4.2-5.4) Hemoglobin 14.8 g/dL (12.0-16.0) Hematocrit 43.2 % (37-47) Mean Corpuscular Volume 87.4 fL (80-100) Mean Corpuscular Hemoglobin 30.0 pg (25-34) Mean Corpuscular Hemoglobin Concent 34.3 g/dl (32-36) Platelet Count 283 K/uL (130-400) Mean Platelet Volume 10.0 fL (7.4-10.4) Neutrophils (%) (Auto) 73.5 % Lymphocytes (%) (Auto) 18.1 % Monocytes (%) (Auto) 7.8 % Eosinophils (%) (Auto) 0.0 % Basophils (%) (Auto) 0.2 % Neutrophils # (Auto) 8.18 K/uL (1.4-6.5) Lymphocytes # (Auto) 2.02 K/uL (1.2-3.4) Monocytes # (Auto) 0.87 K/uL (0.11-0.59) Eosinophils # (Auto) 0.00 K/uL (0-0.5) Basophils # (Auto) 0.02 K/uL (0-0.2) RDW Standard Deviation 40.6 fL (36.4-46.3) RDW Coefficient of Variation 12.7 % (11.5-14.5) Immature Granulocyte % (Auto) 0.4 % Immature Granulocyte # (Auto) 0.04 K/uL (0.00-0.02) Anion Gap 10.0 mmol/L (3-11) Est Creatinine Clear Calc Drug Dose 91.2 ml/min Estimated GFR () 85.7 Estimated GFR (Non- 74.0 BUN/Creatinine Ratio 17.3 (10-20) Calcium Level 9.8 mg/dl (8.5-10.1) Magnesium Level 2.4 mg/dl (1.8-2.4) Thyroid Stimulating Hormone (TSH) 1.320 uIu/ml (0.300-4.500) Human Chorionic Gonadotropin, Qual NEG (NEG) Medications Administered Medications (Trade) Dose Ordered Sig/Dia Route Start Time Stop Time Status Last Admin Dose Admin Lidocaine HCl (Viscous Lidocaine 2% Soln) 10 ml NOW STAT PO 01/14/17 23:23 01/14/17 23:28 DC 01/14/17 23:52 10 ML Al Hydroxide/Mg Hydroxide (Maalox Susp) 30 ml NOW STAT PO 01/14/17 23:23 01/14/17 23:28 DC 01/14/17 23:51 30 ML Albuterol/ Ipratropium 3 ml 3 ml NOW STAT INH 01/14/17 23:23 01/14/17 23:28 DC 01/14/17 23:51 3 ML Sodium Chloride (Nss 1000ml) 1,000 ml @ 999 mls/hr Q1H1M STAT IV 01/14/17 23:23 01/15/17 00:23 DC 01/14/17 23:23 999 MLS/HR Diphenhydramine HCl (Benadryl Inj) 50 mg NOW STAT IV 01/14/17 23:32 01/14/17 23:33 DC 01/14/17 23:51 50 MG Lorazepam (Ativan Inj) 0.5 mg NOW STAT IV 01/15/17 00:50 01/15/17 00:52 DC 01/15/17 00:55 0.5 MG Lorazepam (Ativan 1MG Home Pack) 1 homepack UD ONCE PO 01/15/17 01:00 01/15/17 01:01 DC 01/15/17 02:26 1 HOMEPACK ED Course Prior records/ancillary studies reviewed and summarized above. Nursing notes reviewed. Additional history obtained from family The patient's history was concerning for shakiness, seasonal allergies, acid reflux. Differential diagnosis: Etiologies such as side effect of prednisone, metabolic, infection, hypo/ hyperglycemia, electrolyte abnormalities, cardiac sources, intracerebral event, toxicologic, neurologic, as well as others were entertained. Physical examination: As above. ER treatment provided: IV Lock GI cocktail, Benadryl On reassessment the patient felt better. Diagnostics interpretation by me: The labs revealed mild leukocytosis most likely from prednisone. Hyperglycemia without DKA less likely from prednisone use Imaging studies: Patient declined chest x-ray Exam and history seem consistent with seasonal allergies, acid reflux and side effect of prednisone. Patient states she feels shaky and can't sit still. This most likely is from the prednisone. She was advised to stop the prednisone and to take the Benadryl and her Claritin. She is advised to follow- up today as scheduled with her family care doctor and to take her Zantac and Maalox for her acid reflux. She was offered a PPI and refused. She was advised to follow-up with GI for her ongoing reflux symptoms for the past several months. Patient was neurovascularly and neurologically intact. No deficits on exam. She is well-appearing. She was anxious-appearing. She is advised to return to the ER immediately for chest pain, difficulty breathing, confusion, worsening signs or symptoms or as needed. Patient had a slight elevation in her blood sugar mostly from recent prednisone use. She is advised to follow-up family care for this. By the evaluation outlined above emergent etiologies such as infection, electrolyte abnormalities, cardiac sources, intracerebral event, toxologic, neurologic, abnormalities blood glucose, metabolic, as well as others were deemed relatively unlikely. The pt informed about the findings as listed above. All questions were answered and pleased with the treatment. Return instructions were outlined and the patient was discharged in stable condition. Outpatient prescription management: ativan Referral: The patient was referred back to primary care physician for follow-up in 2 to 3 days for a recheck of the current condition. case reviewed with my Attending Medical Decision As above Impression Primary Impression: GERD (gastroesophageal reflux disease) Additional Impressions: Seasonal allergies Shakiness Hyperglycemia Departure Information Dispostion Home / Self-Care Condition GOOD Referrals Timothy Matthew M.D. Forms WORK / SCHOOL INSTRUCTIONS, HOME CARE DOCUMENTATION FORM, IMPORTANT VISIT INFORMATION Patient Instructions GERD, My [facility], ED Allergy Seasonal Additional Instructions Continue your Claritin daily. Stop the prednisone. Your blood sugars slightly elevated today. Recheck this with the family care doctor. This is most likely do to the prednisone use. Try Maalox for breakthrough symptoms for reflux. Diphenhydramine(Benadryl) 25mg: use 25 to 50 mg every six hours for swelling, itching, or hives. This medication is sedating and will cause drowsiness. Avoid alcohol, operating machinery or dangerous equipment, working on ladders or roofs, DRIVING, or situations where being under the influence may be dangerous. Zantac 75: Take two pills twice a day along with Benadryl as needed for swelling , itching, or hives. Most people know this for its affect on the stomach, but it also acts similar to, but less potent than Benadryl for allergic reactions. Both the Benadryl and the Zantac are available [id number]. If you're still anxious and shaky then you can try the Ativan 1mg. Half a tablet to 1 tablet every 6-8 hours as needed. No alcohol or driving on this medicine. Avoid large meals. Avoid acidic foods. Rest and drink plenty of fluids as tolerated. Continue current medications. Avoid strenuous activities and anything that worsens your pain. Resume normal activities once your symptoms resolve. Return to the ER immediately for worsening or persistent chest pain, abdominal pain, black or blood in your stools, vomiting, fevers, chest pains, difficulty breathing, worsening of your condition, or as needed. Follow up with your primary physician and/or gastroenterology in 2-3 days for a recheck of your current condition. Problem Qualifiers Primary Impression: GERD (gastroesophageal reflux disease) Esophagitis presence: esophagitis presence not specified Qualified Codes: K21.9 - Gastro-esophageal reflux disease without esophagitis
== END 2017-01-15 02:39 | disposition home or self-care (01) ==
LOC: C.EDB 22:24 → C.EDC 01-15 02:39
DX: K21.9 Gastro-esophageal reflux disease without esophagitis (principal); J30.2 Other seasonal allergic rhinitis; J45.909 Unspecified asthma, uncomplicated; Z87.442 Personal history of urinary calculi; Z98.890 Other specified postprocedural states; Z79.899 Other long term (current) drug therapy; Z91.018 Allergy to other foods; Z91.041 Radiographic dye allergy status; Z83.3 Family history of diabetes mellitus; Z82.49 Family history of ischemic heart disease and other diseases of the circulatory system

== ENCOUNTER 2017-01-16 07:37 | Emergency (ER) | payer OTHER ==
[~2017-01-16] VITALS: Ht 162.6 cm; Wt 94.0 kg
[2017-01-16 07:50] VITALS: TEMP 36.5; Ht 162.6 cm; Wt 94.0 kg
--- NOTE | 2017-01-16 08:16 | EMERGENCY ROOM VISIT NOTE ---
History Report prepared by Sohail: Gregory Buitrago Under the Supervision of: Dr. Hilary Singh M.D. First contact with patient: 07:56 Chief Complaint: ILLNESS Stated Complaint: PUFFY EYES, STOMACH, BACK, SIDE PAIN, WEAK, NAUSEA History of Present Illness The patient is a 31 year old female who presents to the Emergency Room with complaints of persistent generalized illness for the past several days. The patient was seen in the ED one week ago for an allergies consisting of facial swelling and trouble breathing. The patient believes that the reaction was caused by pollen. She was started on Prednisone and Benadryl. The patient came back to the ED after experiencing shakiness, nausea, "pressure in her whole body " and "white foamy stuff in her mouth." The patient stopped the Prednisone but continued taking Benadryl. She felt better after receiving Ativan in the ED, and she was also given a GI cocktail. The patient saw her primary doctor yesterday and was given a nebulizer treatment. The patient was shaky all day yesterday, as well as nauseous. The patient has not had a bowel movement for several days. Yesterday the patient noticed that her rectum was sore and that there was blood on the toilet paper when she wipes. The patient's face became very puffy yesterday. She stopped taking Benadryl last night. This morning the patient notes right-sided abdominal pain, right neck pain, nausea, and generalized weakness. The patient also takes Zantac and Claritin. She is not on Prilosec or Protonix. She is s/p cholecystectomy. She has had 6 babies. Source of History: patient Onset: several days ago Position: other (generalized) Quality: other (illness) Timing: other (persistent) Associated Symptoms: + neck pain, + nausea, + abdominal pain, + weakness Review of Systems See HPI for pertinent positives & negatives. A total of 10 systems reviewed and were otherwise negative. Past Medical & Surgical Medical Problems: (1) 23 weeks gestation of (2) Active labor (3) Asthma (4) Cholecystitis (5) Flank pain (6) Hand pain, left (7) History of - miscarriage (8) Intractable pain (9) Intractable pain (10) Kidney stone on right side (11) Kidney stone on right side (12) Kidney stones (13) Left flank pain (14) Renal colic (15) Renal colic Surgical Problems: (1) History of appendectomy Family History Diabetes mellitus Heart disease Hypertension Social History Smoking Status: Never Smoker Drug Use: none Marital Status: Housing Status: lives with family Current/Historical Medications Scheduled Cyanocobalamin (Vitamin B-12), 1,000 MCG PO DAILY Loratadine (Claritin), 10 MG PO DAILY Multivit/Min/Iron/Fol Ac/Pren ( Vitamin), 1 TAB PO DAILY Prednisone (Prednisone), 0 PO DAILY Scheduled PRN Albuterol Hfa (Ventolin Hfa), 2 PUFFS INH Q4H PRN for SOB/Wheezing Diphenhydramine Hcl (Benadryl Allergy), 25 MG PO DAILY PRN for PRN Ranitidine (Zantac), 150 MG PO BID PRN for PRN Ranitidine HCl (Ranitidine 75), 75 MG PO BID PRN for PRN Allergies Coded Allergies: Banana (Unverified Allergy, Severe, ANAPHYLAXIS - "TONGUE TINGLES", ) Dust (Verified Allergy, Severe, SNEEZING; MAY HAVE DIFFICULTY BREATHING, 01/16/17) Soy Allergy (Verified Allergy, Severe, ANAPHYLAXIS, 01/16/17) [place] Seed (Verified Allergy, Severe, ANAPHYLAXIS, 01/16/17) Latex1 -Allergic Contact Dermititis (Verified Allergy, Mild, slight skin irritation, 01/16/17) slight skin irritation Wasp (Unverified Allergy, Unknown, HIVES, SOB, 01/16/17) Physical Exam Vital Signs Date Time Temp Pulse Resp B/P (MAP) Pulse Ox O2 Delivery O2 Flow Rate FiO2 01/16/17 08:40 92 16 128/92 97 01/16/17 07:50 36.5 92 16 128/92 97 Room Air Physical Exam Vital signs reviewed. General: Well-appearing female, in no significant distress. HEENT: No scleral icterus, PERRLA, neck supple. Atraumatic. Cardiovascular: Regular rate and rhythm, no extra sounds. Pulmonary: Clear to auscultation bilaterally, normal work of breathing. Abdomen: Soft, mild epigastric tenderness to palpation, nondistended, positive bowel sounds. Rectal: Pea-sized thrombosed hemorrhoid. Guaiac negative brown stool. Musculoskeletal: Atraumatic, no peripheral edema. Neurologic: Patient awake alert and oriented x 3, full strength in all 4 extremities. Cranial nerves 2 through 12 grossly intact. Skin: Warm, dry, no rash Medical Decision & Procedures ED Course 0800: Past medical records reviewed. The patient was evaluated in room B12b. A complete history and physical examination was performed. 0830: Discussed the discharge instructions with the patient. She verbalized understanding. The patient is ready for discharge. Medical Decision Differential diagnosis includes medication effect, viral illness, allergic reaction, GI bleed, hemorrhoid, perirectal abscess, anxiety, metabolic abnormality. Medication Reconciliation: I attest that I have personally reviewed the patient' s current medication list. Blood Pressure Screening: Patient was found to have normal blood pressure on screening and does not require follow-up. This pt was evaluated and appeared to be in no distress. Pt had many complaints. It seemed her primary issues were rectal pain and nausea. PE revealed a small thrombosed hemorrhoid and mild epigastric tenderness. Pt recently had lab work performed. She declined nausea medications. Further lab work and imaging was not performed. Pt was advised to stop the benadryl, steroids. She will use prilosec 20 mg daily, zantac is needed. TUCKS pads were recommended for hemorrhoid and close f/u with PCP. I did have an extensive discussion with pt and her regarding the symptoms. She will return to the ED for worsening of symptoms or any medical concerns. Impression Primary Impression: Hemorrhoid thrombosis Additional Impressions: Gastritis Seasonal allergies Scribe Attestation The scribe's documentation has been prepared under my direction and personally reviewed by me in its entirety. I confirm that the note above accurately reflects all work, treatment, procedures, and medical decision making performed by me. Departure Information Dispostion Home / Self-Care Referrals No Doctor, Assigned (PCP) Forms HOME CARE DOCUMENTATION FORM, IMPORTANT VISIT INFORMATION, WORK / SCHOOL INSTRUCTIONS Patient Instructions My [facility] Additional Instructions Diagnosis: Thrombosed hemorrhoid, gastritis, seasonal allergies Discontinue steroids, benadryl. Start prilosec (omeprazole) 20 mg daily for 30 days. TUCKS pads to the rectum as directed. Drink plenty of fluids. Follow up with your doctor this week for reevaluation. Return to emergency for worsening of symptoms or any medical concerns. Problem Qualifiers
[2017-01-16 08:40] VITALS: BP 128/92; PULSE 92; O2SAT 97
== END 2017-01-16 08:40 | disposition home or self-care (01) ==
LOC: C.EDB 07:38
DX: K64.5 Perianal venous thrombosis (principal); K29.70 Gastritis, unspecified, without bleeding; J30.2 Other seasonal allergic rhinitis; J45.909 Unspecified asthma, uncomplicated; Z87.442 Personal history of urinary calculi; Z83.3 Family history of diabetes mellitus; Z82.49 Family history of ischemic heart disease and other diseases of the circulatory system; Z79.52 Long term (current) use of systemic steroids; Z79.899 Other long term (current) drug therapy

== ENCOUNTER → 2017-01-18 | Outpatient (CLI) | payer OTHER ==
[~2017-01-18] MED LIST changes: +EPP3/2 IM
[2017-01-18 18:04] LABS: URINE APPEARANCE CLEAR (CLEAR); URINE BILIRUBIN NEG (NEG); URINE COLOR YELLOW; URINE NITRITE NEG (NEG); URINE PH 6.5 (4.5-7.5); URINE SPECIFIC GRAVITY 1.011 (1.000-1.030); UROBILINOGEN NEG (NEG)
[2017-01-18 18:07] LABS: MANUAL MICROSCOPIC REQUIRED? NO; REVIEW REQ? NO
== END | disposition home or self-care (01) ==
LOC: C.LAB 15:22
PROVIDERS: ATTEND Urology
DX: N39.0 Urinary tract infection, site not specified (principal)

== ENCOUNTER → 2017-01-28 | Outpatient (CLI) | payer OTHER ==
--- NOTE | 2017-01-30 12:53 | DIAGNOSTIC IMAGING REPORT ---
RENAL ULTRASOUND HISTORY: N20.0 [id number] Hematuria latex allergy E X0D E ULT COMPARISON: Renal ultrasound 10/05/2016. FINDINGS: Right kidney: 11.9 cm. No hydronephrosis. Normal corticomedullary differentiation and cortical thickness. There are 2 stones within largest measuring 3 mm. Left kidney: 11.5 cm. No hydronephrosis. Normal corticomedullary differentiation and cortical thickness. There are 2 stones within largest measuring 5 mm. Bladder: No bladder wall thickening. The bilateral ureteral jets were identified. IMPRESSION: Bilateral nephrolithiasis. No hydronephrosis. Electronically signed by: Bao Mercado M.D. 01/28/2017 2:04 PM Dictated Date/Time: 01/28/2017 2:02 PM
== END | disposition home or self-care (01) ==
LOC: C.ULTR 12:56
PROVIDERS: ATTEND Nurse Practitioner Family
DX: N20.0 Calculus of kidney (principal); R31.9 Hematuria, unspecified

== ENCOUNTER → 2017-05-10 | Outpatient (CLI) | payer OTHER ==
[~2017-05-10] MED LIST changes: +DIPH1TAB PO; -DIPH1TAB87 PO
== END | disposition home or self-care (01) ==
LOC: C.LAB 14:21
PROVIDERS: ATTEND Nurse Practitioner Adult Health
DX: N39.0 Urinary tract infection, site not specified (principal)

== ENCOUNTER 2017-05-17 16:04 | Emergency (ER) | payer OTHER ==
[~2017-05-17] VITALS: Ht 165.1 cm; Wt 88.1 kg
[~2017-05-17 16:04] MED LIST changes: -EPP3/2 IM
[2017-05-17 16:06] VITALS: TEMP 36.9; Ht 165.1 cm; Wt 88.1 kg
--- NOTE | 2017-05-17 17:14 | DIAGNOSTIC IMAGING REPORT ---
HEAD WITHOUT CONTRAST (CT) CLINICAL HISTORY: 31 years-old Female with trauma, dizzy/blurred vision/nausea. Acute head injury status post trauma. TECHNIQUE: Multiple axial CT images of the head were obtained without contrast. A dose lowering technique was utilized adhering to the principles of ALARA. COMPARISON: CT cervical spine 05/17/2017. FINDINGS: No acute intracranial hemorrhage, midline shift, mass, large territorial ischemia or abnormal extra-axial collection. The calvarium is intact. The paranasal sinuses, mastoid air cells, and middle ear cavities are clear. IMPRESSION: No acute intracranial abnormality. The above report was generated using voice recognition software. It may contain grammatical, syntax or spelling errors. Electronically signed by: Rick Chavarria M.D. 05/17/2017 5:13 PM Dictated Date/Time: 05/17/2017 5:11 PM
--- NOTE | 2017-05-17 17:18 | DIAGNOSTIC IMAGING REPORT ---
CERVICAL SPINE W/O CT DOSE: 1050.43 mGy.cm CLINICAL HISTORY: 31 years-old Female with trauma, pain. Acute neck injury status post trauma. COMPARISON: CT head of same day. TECHNIQUE: Multiple axial CT images of the cervical spine were obtained without contrast. A dose lowering technique was utilized adhering to the principles of ALARA. FINDINGS: Vertebral body heights and alignment are normal. No fracture or subluxation is identified. The intervertebral disc spaces are preserved. No significant central canal or neural foraminal stenosis is identified. Small posterior disc bulge seen at the C6-C7 level. The cervical soft tissues appear unremarkable. The visualized lung apices appear clear. IMPRESSION: No acute cervical spine fracture or subluxation. The above report was generated using voice recognition software. It may contain grammatical, syntax or spelling errors. Electronically signed by: Rick Chavarria M.D. 05/17/2017 5:16 PM Dictated Date/Time: 05/17/2017 5:13 PM
[2017-05-17] MEDS ORDERED: EPP3/2 IM (17:27)
--- NOTE | 2017-05-17 17:47 | EMERGENCY ROOM VISIT NOTE ---
History Report prepared by Sohail: Kuldeep Evans Under the Supervision of: Dr. Chary Owens D.O. First contact with patient: 16:12 Chief Complaint: DIZZY Stated Complaint: DIZZY, NAUCEOUS, BLURRY VISION History of Present Illness The patient is a 31 year old female who presents to the Emergency Room with complaints of persistent dizziness beginning this morning. The patient states that she fell in the shower this morning and hit the back of her head. She states that she fell onto her backside and then backwards onto her head. She states that she began feeling nauseous and dizzy after the fall. The patient did not lose consciousness during the fall. She also complains of fatigue. She denies any numbness, vomiting, cough, fever, diarrhea, or chills. The patient has taken ibuprofen for her symptoms but has seen no relief. She states that she has some pain in her neck and hips since the fall. She notes that she burned her left forearm a few days ago. Source of History: patient Onset: This morning Quality: other (dizziness) Timing: other (persistent) Associated Symptoms: + neck pain, + nausea, + fatigue, No LOC, No fevers, No chills, No cough, No vomiting, No diarrhea, No numbness Note: Additional symptoms: hip pain. Review of Systems See HPI for pertinent positives & negatives. A total of 10 systems reviewed and were otherwise negative. Past Medical & Surgical Medical Problems: (1) 23 weeks gestation of (2) Active labor (3) Asthma (4) Cholecystitis (5) Flank pain (6) Hand pain, left (7) History of - miscarriage (8) Intractable pain (9) Intractable pain (10) Kidney stone on right side (11) Kidney stone on right side (12) Kidney stones (13) Left flank pain (14) Renal colic (15) Renal colic Surgical Problems: (1) History of appendectomy Family History Diabetes mellitus Heart disease Hypertension Social History Smoking Status: Never Smoker Drug Use: none Marital Status: Housing Status: lives with family Current/Historical Medications Scheduled Cyanocobalamin (Vitamin B-12), 1,000 MCG PO DAILY Epinephrine (Epipen), 0.3 MG IM UD Loratadine (Claritin), 10 MG PO DAILY Scheduled PRN Albuterol Hfa (Ventolin Hfa), 2 PUFFS INH Q4H PRN for SOB/Wheezing Diphenhydramine Hcl (Benadryl Allergy), 25 MG PO DAILY PRN for PRN Allergies Coded Allergies: Banana (Unverified Allergy, Severe, ANAPHYLAXIS - "TONGUE TINGLES", ) Cat Dander (Unverified Allergy, Severe, ., 05/17/17) Dog Dander (Unverified Allergy, Severe, ., 05/17/17) Dust (Verified Allergy, Severe, SNEEZING; MAY HAVE DIFFICULTY BREATHING, 05/17/17) Nut Tree (Unverified Allergy, Severe, ., 05/17/17) Peanut (Unverified Allergy, Severe, ., 05/17/17) Sesame Seed (Unverified Allergy, Severe, ., 05/17/17) Soy Allergy (Verified Allergy, Severe, ANAPHYLAXIS, 05/17/17) [place] Seed (Verified Allergy, Severe, ANAPHYLAXIS, 05/17/17) Latex1 -Allergic Contact Dermititis (Verified Allergy, Mild, slight skin irritation, 05/17/17) slight skin irritation Wasp (Unverified Allergy, Unknown, HIVES, SOB, 05/17/17) Physical Exam Vital Signs Date Time Temp Pulse Resp B/P (MAP) Pulse Ox O2 Delivery O2 Flow Rate FiO2 05/17/17 17:58 69 18 118/69 100 Room Air 05/17/17 17:13 77 20 125/72 100 Room Air 05/17/17 16:06 36.9 82 16 131/75 100 Room Air Physical Exam GENERAL: alert, well appearing, well nourished, no distress, non-toxic EYE EXAM: normal conjunctiva, PERRL and EOM's grossly intact OROPHARYNX: no exudate, no erythema, lips, buccal mucosa, and tongue normal and mucous membranes are moist NECK: supple, no nuchal rigidity, no adenopathy, non-tender LUNGS: Clear to auscultation. Normal chest wall mechanics HEART: no murmurs, S1 normal and S2 normal ABDOMEN: abdomen soft, non-tender, normo-active bowel sounds, no masses, no rebound or guarding. BACK: Back is symmetrical on inspection and there is no deformity, no midline tenderness, no CVA tenderness. SKIN: no rashes and no bruising UPPER EXTREMITIES: upper extremities are grossly normal. LOWER EXTREMITIES: No pitting edema. NEURO EXAM: Normal sensorium, cranial nerves II-XII grossly intact, normal speech, no gross weakness of arms, no gross weakness of legs. Medical Decision & Procedures ER Provider Diagnostic Interpretation: Radiology results have been interpreted by the radiologist and reviewed by me. HEAD WITHOUT CONTRAST (CT) FINDINGS: No acute intracranial hemorrhage, midline shift, mass, large territorial ischemia or abnormal extra-axial collection. The calvarium is intact. The paranasal sinuses, mastoid air cells, and middle ear cavities are clear. IMPRESSION: No acute intracranial abnormality. The above report was generated using voice recognition software. It may contain grammatical, syntax or spelling errors. Electronically signed by: Rick Chavarria M.D. 05/17/2017 5:13 PM CERVICAL SPINE W/O FINDINGS: Vertebral body heights and alignment are normal. No fracture or subluxation is identified. The intervertebral disc spaces are preserved. No significant central canal or neural foraminal stenosis is identified. Small posterior disc bulge seen at the C6-C7 level. The cervical soft tissues appear unremarkable. The visualized lung apices appear clear. IMPRESSION: No acute cervical spine fracture or subluxation. The above report was generated using voice recognition software. It may contain grammatical, syntax or spelling errors. Electronically signed by: Rick Chavarria M.D. 05/17/2017 5:16 PM ED Course 1619: The patient was evaluated in room C1B. A complete history and physical exam was performed. 1737: Upon reevaluation, the patient is feeling better. I discussed the findings and the treatment plan with the patient. She verbalizes agreement and understanding. She was discharged home. Medical Decision Differential diagnosis: Etiologies such as benign positional vertigo, dehydration, hypovolemia, anemia, tumor, infection, hypoglycemia, electrolyte abnormalities, cardiac sources, intracerebral event, toxicologic, neurologic, as well as others were entertained. Patient was likely concussion, no evidence of additional medic injury. Patient with a normal and nonfocal neuro exam at bedside. No active vomiting, normal vision, normal gait, no ataxia. Discussed with her concussive symptoms and usual course. Discussed treatment, follow-up with PMD, symptoms to watch and return for, she verbalized understanding was agreeable with plan. I've a low suspicion for any additional occult traumatic injury. Impression Primary Impression: Closed head injury Additional Impression: Concussion Scribe Attestation The scribe's documentation has been prepared under my direction and personally reviewed by me in its entirety. I confirm that the note above accurately reflects all work, treatment, procedures, and medical decision making performed by me. Departure Information Dispostion Home / Self-Care Referrals Vincent Santiago M.D.([facility]) (PCP) Patient Instructions My [facility] Additional Instructions Please drink plenty of water and stay well-hydrated. You may use Tylenol and ibuprofen as needed for pain. Please avoid any activities which could result in any additional head injury due to physical contact. If you have any worsening headaches, worsening dizziness, vision changes, vomiting, or unable to walk, develop numbness or tingling, or you have any other new concerns, please return the emergency room. Problem Qualifiers Primary Impression: Closed head injury Encounter type: initial encounter Qualified Codes: S09.90XA - Unspecified injury of head, initial encounter Additional Impression: Concussion Encounter type: initial encounter Loss of consciousness presence/duration: without LOC Qualified Codes: S06.0X0A - Concussion without loss of consciousness, initial encounter
[2017-05-17 17:58] VITALS: BP 118/69; PULSE 69; O2SAT 100
== END 2017-05-17 18:06 | disposition home or self-care (01) ==
LOC: C.EDB 16:05 → C.EDC 18:06
DX: S09.90XA Unspecified injury of head, initial encounter (principal); S06.0X0A Concussion without loss of consciousness, initial encounter; W18.2XXA Fall in (into) shower or empty bathtub, initial encounter; J45.909 Unspecified asthma, uncomplicated; Z83.3 Family history of diabetes mellitus; Z82.49 Family history of ischemic heart disease and other diseases of the circulatory system

== ENCOUNTER → 2017-05-31 | Outpatient (CLI) | payer OTHER ==
[~2017-05-31] MED LIST changes: +EPP3/2 IM; -PRED20TA PO; -PRENTAB26 PO; -RANI1TAB75 PO; -ZNTT/150 PO
--- NOTE | 2017-05-31 10:24 | DIAGNOSTIC IMAGING REPORT ---
EXAMINATION: RENAL ULTRASOUND CLINICAL HISTORY: N20.0 [id number] COMPARISON STUDY: 01/28/2017 FINDINGS: The right kidney measures 11.7 cm. The left kidney measures 11.1 cm. There is no evidence of hydronephrosis. No renal masses are visualized. There is a 6 mm echogenic focus within the mid to upper pole the right kidney suspicious for a calculus. A few additional tiny hyperechoic foci are visualized. Additional calculi may be present. The renal pyramids appear slightly echogenic bilaterally. This remains unchanged the prior study. No bladder abnormalities are visualized. Bilateral ureteral jets were visualized. IMPRESSION : 1. Probable bilateral nephrolithiasis with a 6 mm mid to upper pole right renal calculus 2. Slightly echogenic renal pyramids 3. No evidence of hydronephrosis Electronically signed by: Leon Mcmillan M.D. 05/31/2017 10:23 AM Dictated Date/Time: 05/31/2017 10:21 AM
== END | disposition home or self-care (01) ==
LOC: C.ULTR 09:36
PROVIDERS: ATTEND Nurse Practitioner Family
DX: N20.0 Calculus of kidney (principal)

== ENCOUNTER → 2017-08-29 | Outpatient (CLI) | payer OTHER ==
[~2017-08-29] MED LIST changes: -DIPH1TAB PO; +DIPH1TAB87 PO
== END | disposition home or self-care (01) ==
LOC: C.LABSPEC 14:46
PROVIDERS: ATTEND Obstetrics & Gynecology
DX: Z34.81 Encounter for supervision of other normal pregnancy, first trimester (principal); Z3A.00 Weeks of gestation of pregnancy not specified

== ENCOUNTER → 2017-08-29 | Outpatient (CLI) | payer OTHER | END | disposition home or self-care (01) | LOC: C.PAPS 16:11 | PROVIDERS: ATTEND Obstetrics & Gynecology | DX: Z34.81 Encounter for supervision of other normal pregnancy, first trimester (principal); Z3A.00 Weeks of gestation of pregnancy not specified ==

== ENCOUNTER 2017-11-08 15:04 | Emergency (ER) | payer OTHER ==
[~2017-11-08] VITALS: Ht 165.1 cm; Wt 87.0 kg
[~2017-11-08 15:04] MED LIST changes: -CLR10 PO; -DIPH1TAB87 PO; -VNTHFA/IN INH
[2017-11-08 15:11] VITALS: TEMP 36.9; Ht 165.1 cm; Wt 87.0 kg
[2017-11-08] MEDS ORDERED: CLR10 PO (15:35)
[2017-11-08] MEDS ORDERED: DIPH1TAB87 PO (15:35)
[2017-11-08] MEDS ORDERED: SODIUM CHLORIDE 0.9% 1000ML 1,000 ML IV STA (15:45)
[2017-11-08] MEDS ORDERED: SODIUM CHLORIDE 0.9% 500ML 500 ML IV STA (15:45)
--- NOTE | 2017-11-08 15:57 | EMERGENCY ROOM VISIT NOTE ---
History Report prepared by Sohail: Charisse Lopez Under the Supervision of: Dr. Hilary Singh M.D. 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 The patient states she has been feeling these symptoms on and off for the past month however, it has worsened in the past week. She reports she feels dizzy, feels sick, shaky, weak, on the verge of passing out and vomiting. She also states her heart "pounds" which is irregular and this has only happened in the past week. Drinking water helps her a little but she has constipation which is abnormal for her. The patient describes her symptoms as uncomfortable. She is currently 16 weeks . 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 She also states her heart "pounds" which is irregular Review of Systems See HPI for pertinent positives & negatives. A total of 10 systems reviewed and were otherwise negative. 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) Current/Historical Medications Scheduled Cranberry (Vaccinium Macrocarp (Cranberry), 500 MG PO DAILY Epinephrine (Epipen), 0.3 MG IM UD Multivit/Min/Iron/Fol Ac/Pren ( Vitamin), 1 TAB PO DAILY Probiotic Product (Probiotic), 1 CAP PO DAILY Scheduled PRN Albuterol Hfa (Ventolin Hfa), 2 PUFFS INH Q4H PRN for SOB/Wheezing Diphenhydramine Hcl (Benadryl Allergy), 50 MG PO DAILY PRN for PRN Fluticasone Propionate (Nasal) (Flonase Allergy Relief), 2 SPRAYS ALFONZO DAILY PRN for Nasal Congestion Loratadine (Claritin), 10 MG PO DAILY PRN for Seasonal Allergies Allergies Coded Allergies: Banana (Unverified Allergy, Severe, ANAPHYLAXIS - "TONGUE TINGLES", ) Cat Dander (Unverified Allergy, Severe, ., 05/17/17) Dog Dander (Unverified Allergy, Severe, ., 05/17/17) Dust (Verified Allergy, Severe, SNEEZING; MAY HAVE DIFFICULTY BREATHING, 05/17/17) Nut Tree (Unverified Allergy, Severe, ., 05/17/17) Peanut (Unverified Allergy, Severe, ., 05/17/17) Sesame Seed (Unverified Allergy, Severe, ., 05/17/17) Soy Allergy (Verified Allergy, Severe, ANAPHYLAXIS, 05/17/17) [place] Seed (Verified Allergy, Severe, ANAPHYLAXIS, 05/17/17) Latex1 -Allergic Contact Dermititis (Verified Allergy, Mild, slight skin irritation, 05/17/17) slight skin irritation Wasp (Unverified Allergy, Unknown, HIVES, SOB, 05/17/17) Physical Exam Vital Signs Date Time Temp Pulse Resp B/P (MAP) Pulse Ox O2 Delivery O2 Flow Rate FiO2 11/08/17 18:57 76 110/59 11/08/17 17:44 76 11/08/17 17:09 75 16 115/72 98 Room Air 11/08/17 16:16 86 16 117/76 98 Room Air 81 125/71 95 116/85 11/08/17 15:11 36.9 85 18 124/84 99 Physical Exam Vital signs reviewed. Slightly positive orthostatics. General: Well-appearing female, in no significant distress. HEENT: No scleral icterus, PERRLA, neck supple. Atraumatic. Cardiovascular: Regular rate and rhythm, no extra sounds. Pulmonary: Clear to auscultation bilaterally, normal work of breathing. Abdomen: Obese, soft, nontender, nondistended abdomen. No significant edema. Musculoskeletal: Atraumatic, no peripheral edema. Neurologic: Patient awake alert and oriented x 3, full strength in all 4 extremities. Cranial nerves 2 through 12 grossly intact. Skin: Warm, dry, no rash Medical Decision & Procedures ER Provider Diagnostic Interpretation: Radiology results as stated below per my review and radiologist interpretation: VENOUS DOPPLER LWR EXT BILA HISTORY: Pain. Edema. near syncope, preg, DVT COMPARISON STUDY: None. FINDINGS: There is normal compressibility, flow, and augmentation within the bilateral lower extremity deep venous systems. IMPRESSION: No DVT within the right or left lower extremity. The above report was generated using voice recognition software. It may contain grammatical, syntax or spelling errors. Electronically signed by: Guillermo Mitchell M.D. 11/08/2017 5:44 PM Dictated Date/Time: 11/08/2017 5:42 PM Laboratory Results 11/08/17 16:04 Red Blood Count 4.27, Mean Corpuscular Volume 89.2, Mean Corpuscular Hemoglobin 31.1, Mean Corpuscular Hemoglobin Concent 34.9, Mean Platelet Volume 9.4, Neutrophils (%) (Auto) 73.0, Lymphocytes (%) (Auto) 22.2, Monocytes (%) (Auto) 4.0, Eosinophils (%) (Auto) 0.4, Basophils (%) (Auto) 0.1, Neutrophils # (Auto) 5.17, Lymphocytes # (Auto) 1.57, Monocytes # (Auto) 0.28, Eosinophils # (Auto) 0.03, Basophils # (Auto) 0.01 11/08/17 16:04 Test 11/08/17 16:04 11/08/17 16:34 White Blood Count 7.08 K/uL (4.8-10.8) Red Blood Count 4.27 M/uL (4.2-5.4) Hemoglobin 13.3 g/dL (12.0-16.0) Hematocrit 38.1 % (37-47) Mean Corpuscular Volume 89.2 fL (80-100) Mean Corpuscular Hemoglobin 31.1 pg (25-34) Mean Corpuscular Hemoglobin Concent 34.9 g/dl (32-36) Platelet Count 206 K/uL (130-400) Mean Platelet Volume 9.4 fL (7.4-10.4) Neutrophils (%) (Auto) 73.0 % Lymphocytes (%) (Auto) 22.2 % Monocytes (%) (Auto) 4.0 % Eosinophils (%) (Auto) 0.4 % Basophils (%) (Auto) 0.1 % Neutrophils # (Auto) 5.17 K/uL (1.4-6.5) Lymphocytes # (Auto) 1.57 K/uL (1.2-3.4) Monocytes # (Auto) 0.28 K/uL (0.11-0.59) Eosinophils # (Auto) 0.03 K/uL (0-0.5) Basophils # (Auto) 0.01 K/uL (0-0.2) RDW Standard Deviation 45.0 fL (36.4-46.3) RDW Coefficient of Variation 13.8 % (11.5-14.5) Immature Granulocyte % (Auto) 0.3 % Immature Granulocyte # (Auto) 0.02 K/uL (0.00-0.02) Anion Gap 7.0 mmol/L (3-11) Est Creatinine Clear Calc Drug Dose 127.0 ml/min Estimated GFR () 132.3 Estimated GFR (Non- 114.1 BUN/Creatinine Ratio 12.2 (10-20) Calcium Level 9.2 mg/dl (8.5-10.1) Magnesium Level 1.9 mg/dl (1.8-2.4) Total Bilirubin 0.2 mg/dl (0.2-1) Direct Bilirubin < 0.1 mg/dl (0-0.2) Aspartate Amino Transf (AST/SGOT) 13 U/L (15-37) Alanine Aminotransferase (ALT/SGPT) 22 U/L (12-78) Alkaline Phosphatase 93 U/L (45-117) Total Protein 7.8 gm/dl (6.4-8.2) Albumin 3.5 gm/dl (3.4-5.0) Thyroid Stimulating Hormone (TSH) 1.380 uIu/ml (0.300-4.500) Free Thyroxine 0.90 ng/dl (0.80-1.60) Urine Color YELLOW Urine Appearance CLEAR (CLEAR) Urine pH 6.0 (4.5-7.5) Urine Specific [place] 1.020 (1.000-1.030) Urine Protein NEG (NEG) Urine Glucose (UA) NEG (NEG) Urine Ketones NEG (NEG) Urine Occult Blood NEG (NEG) Urine Nitrite NEG (NEG) Urine Bilirubin NEG (NEG) Urine Urobilinogen NEG (NEG) Urine Leukocyte Esterase TRACE (NEG) Urine WBC (Auto) 1-5 /hpf (0-5) Urine RBC (Auto) 0-4 /hpf (0-4) Urine Hyaline Casts (Auto) 1-5 /lpf (0-5) Urine Epithelial Cells (Auto) >30 /lpf (0-5) Urine Bacteria (Auto) NEG (NEG) Laboratory results per my review. Medications Administered Medications (Trade) Dose Ordered Sig/Dia Route Start Time Stop Time Status Last Admin Dose Admin Sodium Chloride 500 ml @ 999 mls/hr Q31M STAT IV 11/08/17 15:45 11/08/17 16:15 DC 11/08/17 15:45 999 MLS/HR Sodium Chloride 1,000 ml @ 125 mls/hr Q8H STAT IV 11/08/17 15:45 11/08/17 19:20 DC 11/08/17 15:45 125 MLS/HR ECG Per My Interpretation Indication: weakness Rate (beats per minute): 76 Rhythm: normal sinus Findings: T-wave inversion (Anterior), no acute ischemic change, no ectopy Comparison ECG Date: 08/24/16 Change: no significant change ED Course 1541: Past medical records reviewed. The patient was evaluated in room B2. A complete history and physical examination was performed. 1545: Sodium Chloride 1000 ml @ 125 mls/hr Sodium Chloride 500 ml @ 999 mls/hr IV 1825: Upon reevaluation, the patient appeared to have improvement of her symptoms. I discussed findings with her. She verbalized agreement of the treatment plan. She was discharged home. Medical Decision Differential diagnosis: Etiologies such as premature contractions, electrolyte abnormality, cardiac dysrhythmia, thyroid dysfunction, pulmonary embolism, infection, gastrointestinal, as well as others were entertained. This patient was evaluated and appeared to be in no significant distress. Physical examination is fairly unrevealing. Patient was hydrated with normal saline solution after orthostatics were positive. Laboratory work is fairly unrevealing. UA is negative. Venous Dopplers of the lower extremities are negative for DVT. Patient's vital signs have remained stable. I suspect the patient's symptoms are related to her fluid status and second trimester . 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 Patient was encouraged to drink plenty of water and to return to the ER for worsening of symptoms or any medical concerns. Medication Reconcilliation Current Medication List: was personally reviewed by me Blood Pressure Screening Patient's blood pressure: Normal blood pressure Blood pressure disposition: Did not require urgent referral Impression Primary Impression: Vasovagal near syncope Additional Impression: with 16 completed weeks gestation Scribe Attestation The scribe's documentation has been prepared under my direction and personally reviewed by me in its entirety. I confirm that the note above accurately reflects all work, treatment, procedures, and medical decision making performed by me. Departure Information Dispostion Home / Self-Care Referrals No Doctor, Assigned (PCP) Forms HOME CARE DOCUMENTATION FORM, IMPORTANT VISIT INFORMATION Patient Instructions My [facility] Additional Instructions Diagnosis: Vasovagal near syncope, Please drink plenty of water. Follow-up with SOFTWARE QUALITY ASSURANCE ANALYST as scheduled for reevaluation. Return to the emergency department for worsening of symptoms or any medical concerns. Problem Qualifiers
[2017-11-08 16:26] LABS: BASO % 0.1 %; BASO ABS # 0.01 K/uL (0-0.2); EOS % 0.4 %; EOS ABS # 0.03 K/uL (0-0.5); HEMATOCRIT 38.1 % (37-47); HEMOGLOBIN 13.3 g/dL (12.0-16.0); IG# 0.02 K/uL (0.00-0.02); LYMPH % 22.2 %; LYMPH ABS # 1.57 K/uL (1.2-3.4); MEAN CELL VOLUME 89.2 fL (80-100); MEAN CORPUSCULAR HEMOGLOBIN 31.1 pg (25-34); MEAN CORPUSCULAR HGB CONC 34.9 g/dl (32-36); MEAN PLATELET VOLUME 9.4 fL (7.4-10.4); MONO ABS # 0.28 K/uL (0.11-0.59); NEUT ABS # 5.17 K/uL (1.4-6.5); PLATELET COUNT 206 K/uL (130-400); RED CELL DISTRIBUTION WIDTH CV 13.8 % (11.5-14.5); WHITE BLOOD COUNT 7.08 K/uL (4.8-10.8)
[2017-11-08 16:46] LABS: ALBUMIN 3.5 gm/dl (3.4-5.0); ALT/SGPT 22 U/L (12-78); BLOOD UREA NITROGEN 8 mg/dl (7-18); CALCIUM 9.2 mg/dl (8.5-10.1); CARBON DIOXIDE 25 mmol/L (21-32); CREATININE 0.68 mg/dl (0.60-1.20); GLUCOSE 93 mg/dl (70-99); POTASSIUM 3.4 mmol/L (3.5-5.1); SODIUM 135 mmol/L (136-145)
[2017-11-08 16:55] LABS: ALKALINE PHOSPHATASE 93 U/L (45-117); AST/SGOT 13 U/L (15-37); TOTAL PROTEIN 7.8 gm/dl (6.4-8.2)
[2017-11-08 17:09] VITALS: O2SAT 98
[2017-11-08] MEDS ORDERED: CRAN500C2 PO (17:09)
[2017-11-08] MEDS ORDERED: MISCCAP80 PO (17:09)
[2017-11-08] MEDS ORDERED: FLUT0.15 NAE (17:09)
[2017-11-08] MEDS ORDERED: PRENTAB26 PO (17:09)
--- NOTE | 2017-11-08 17:45 | DIAGNOSTIC IMAGING REPORT ---
VENOUS DOPPLER LWR EXT BILA HISTORY: Pain. Edema. near syncope, preg, DVT COMPARISON STUDY: None. FINDINGS: There is normal compressibility, flow, and augmentation within the bilateral lower extremity deep venous systems. IMPRESSION: No DVT within the right or left lower extremity. The above report was generated using voice recognition software. It may contain grammatical, syntax or spelling errors. Electronically signed by: Guillermo Mitchell M.D. 11/08/2017 5:44 PM Dictated Date/Time: 11/08/2017 5:42 PM
[2017-11-08] MEDS ORDERED: VNTHFA/IN INH (18:48)
[2017-11-08 18:57] VITALS: BP 110/59; PULSE 76
== END 2017-11-08 18:58 | disposition home or self-care (01) ==
LOC: C.EDB 15:05
DX: R55 Syncope and collapse (principal); Z33.1 Pregnant state, incidental; J45.909 Unspecified asthma, uncomplicated; Z87.442 Personal history of urinary calculi; Z83.3 Family history of diabetes mellitus; Z82.49 Family history of ischemic heart disease and other diseases of the circulatory system; Z91.018 Allergy to other foods; Z91.010 Allergy to peanuts; Z91.048 Other nonmedicinal substance allergy status; Z91.040 Latex allergy status; Z91.038 Other insect allergy status

== ENCOUNTER → 2017-12-18 | Outpatient (CLI) | payer OTHER ==
[~2017-12-18] MED LIST changes: +CLR10 PO; +CRAN500C2 PO; -CYAN10005 PO; +DIPH1TAB87 PO; +FLUT0.15 NAE; +MISCCAP80 PO; +PRENTAB26 PO; +VNTHFA/IN INH
[2017-12-18 13:25] LABS: BASO % 0.2 %; BASO ABS # 0.01 K/uL (0-0.2); EOS % 1.7 %; EOS ABS # 0.11 K/uL (0-0.5); HEMATOCRIT 33.3 % (37-47); HEMOGLOBIN 11.4 g/dL (12.0-16.0); IG# 0.03 K/uL (0.00-0.02); LYMPH % 21.3 %; LYMPH ABS # 1.41 K/uL (1.2-3.4); MEAN CORPUSCULAR HEMOGLOBIN 31.1 pg (25-34); MEAN CORPUSCULAR HGB CONC 34.2 g/dl (32-36); MEAN PLATELET VOLUME 9.9 fL (7.4-10.4); MONO ABS # 0.33 K/uL (0.11-0.59); NEUT % 71.3 %; NEUT ABS # 4.72 K/uL (1.4-6.5); PLATELET COUNT 186 K/uL (130-400); RED CELL DISTRIBUTION WIDTH CV 14.3 % (11.5-14.5); RED CELL DISTRIBUTION WIDTH SD 46.6 fL (36.4-46.3); WHITE BLOOD COUNT 6.61 K/uL (4.8-10.8)
== END | disposition home or self-care (01) ==
LOC: C.LAB 11:53
PROVIDERS: ATTEND Obstetrics & Gynecology
DX: Z34.82 Encounter for supervision of other normal pregnancy, second trimester (principal)

== ENCOUNTER → 2018-03-13 | Outpatient (CLI) | payer OTHER | END | disposition home or self-care (01) | LOC: C.LABSPEC 14:47 | PROVIDERS: ATTEND Obstetrics & Gynecology | DX: Z34.83 Encounter for supervision of other normal pregnancy, third trimester (principal) ==

== ENCOUNTER 2018-03-24 19:05 | Inpatient (IN) | payer OTHER ==
[~2018-03-24] VITALS: Ht 165.1 cm; Wt 98.0 kg
[2018-03-24 19:42] VITALS: Ht 165.1 cm; Wt 98.0 kg
[2018-03-24 20:07] LABS: HEMATOCRIT 36.7 % (37-47); HEMOGLOBIN 12.5 g/dL (12.0-16.0); MEAN CELL VOLUME 90.4 fL (80-100); MEAN CORPUSCULAR HEMOGLOBIN 30.8 pg (25-34); PLATELET COUNT 166 K/uL (130-400); RED CELL DISTRIBUTION WIDTH SD 46.1 fL (36.4-46.3); WHITE BLOOD COUNT 10.46 K/uL (4.8-10.8)
[2018-03-24] MEDS ORDERED: EpHEDrine SULFATE INJ 50 MG/ML AMP ONE (20:12)
[2018-03-24] MEDS ORDERED: BUPIVACAINE 0.25% 30 ML VIAL ONE (20:12)
[2018-03-24] MEDS ORDERED: FENTANYL CITRATE INJ 50 MCG/1 ML 2 ML VIAL ONE (20:13)
[2018-03-24] MEDS ORDERED: FENTANYL 2MCG/ML ROPIV 1.25MG/ML 100ML BAG ONE (20:13)
[2018-03-24 20:16] LABS: MEAN CORPUSCULAR HGB CONC 34.1 g/dl (32-36)
[2018-03-24] MEDS ORDERED: NALOXONE HCL INJ 1 MG in SODIUM CHLORIDE 0.9% 1000ML 1,000 ML IV PRN (20:55)
[2018-03-24] MEDS ORDERED: EpHEDrine SULFATE INJ 50 MG/ML AMP IV PRN (21:00)
[2018-03-24] MEDS ORDERED: NALOXONE HCL INJ 0.4 MG/1 ML VIAL/CARP IV PRN (21:00)
[2018-03-24] MEDS ORDERED: FENTANYL 2MCG/ML ROPIV 1.25MG/ML 100ML BAG EPI PRN (21:00)
[2018-03-24] MEDS ORDERED: DiphenhydrAMINE HCL 50 MG/ML VIAL IV PRN (21:00)
[2018-03-24] MEDS ORDERED: ONDANSETRON INJ 2 MG/ML 2 ML VIAL IV PRN (21:00)
[2018-03-24] MEDS ORDERED: NALBUPHINE HCL INJ 10 MG/ML 1ML AMP IV PRN (21:00)
[2018-03-24] MEDS: LACTATED RINGER'S 1000ML 500 ML IV PRN ×2 (21:09→22:18)
[2018-03-24] MEDS ORDERED: OXYTOCIN 30 UNITS/500ML NSS IV ONE (22:44)
[2018-03-24] MEDS ORDERED: HYDROCORTISONE ACETATE 25 MG SUPP PR PRN (23:15)
[2018-03-24] MEDS ORDERED: SUPERCREAM 0.870 % 15GM JAR EXT PRN (23:15)
[2018-03-24] MEDS ORDERED: ACETAMINOPHEN/CODEINE 300/30MG TAB PO PRN ×2 (23:15)
[2018-03-24] MEDS ORDERED: BENZOCAINE 20% AER SPR 82.5 GM CAN EXT PRN (23:15)
[2018-03-24] MEDS ORDERED: DIPHTHERIA/TETANUS/PERTUSSIS 0.5 ML SYR/VIAL IM. ONE (23:15)
[2018-03-24] MEDS ORDERED: LANOLIN OINT EXT PRN (23:15)
[2018-03-24] MEDS ORDERED: OXYTOCIN 30 UNITS/500ML NSS IV PRN (23:15)
[2018-03-24] MEDS ORDERED: OXYCODONE/ACETAMINOPHEN 5-325 TAB PO PRN (23:15)
--- NOTE | 2018-03-24 23:31 | DELIVERY SUMMARY ---
DATE OF OPERATION: 03/24/2018 DELIVERY NOTE Mrs. Duncan has had a course which was complicated by episodes of premature labor. She eventually was on Procardia for a while and she also had Celestone 12 mg by 24 hours, 2 shots; that was about 2 weeks ago. She continued to have periodic contractions. She would take her Procardia p.r.n. She was seen earlier in the day in the office. At that time, her cervix was 3-4 cm. She called several hours later stating that she was mihaela with regular hard contractions. She got to the maternity floor, she was breathing through her contractions. She requested and received epidural anesthesia. She obtained good pain relief. After she got her anesthesia the first time I checked her, she was about 6 cm with bulging membranes, ruptured her water, fluid was clear. She had a spontaneous unstimulated labor, went to full dilatation, pushed out a live female via direct occiput anterior position over an intact perineum. was suctioned through the mouth and the nose. There was a nuchal cord x1 which was reduced over the head. Body was delivered without difficulty. Cord was clamped, cut by the father. Cord blood was taken. With IV Pitocin running, placenta was removed intact. Inspection of the perineum revealed a small first-degree laceration. This was repaired with 2-0 Vicryl approximating the vaginal mucosa out and to beyond the hymenal ring using a deep suture of 2-0 Vicryl to approximate the bulbocavernosus muscles and a separate deep suture to approximate the perineal body, then a running subcuticular suture to approximate the perineal skin edges. Following this, vag exam including rectovaginal examination revealed no hematoma formation or sponges in the vagina. Estimated blood loss was 200 mL. Estimated 1 and 5 minute Apgars were 8 and 9 respectively. I attest to the content of the Intraoperative Record and any orders documented therein. Any exceptions are noted below. TIFFANIE
[2018-03-25] VITALS (8 sets, daily range): BP systolic 98–129; BP diastolic 64–82; PULSE 58–82; TEMP 36.5–36.9; O2SAT 97–100
--- NOTE | 2018-03-25 03:11 | Anesthesia Procedure Note ---
Anesthesia Epidural Removal Nt Date & Time Mar 25, 2018 at 03:11 Vital Signs Pain Intensity: 0.0 Notes Mental Status: alert / awake / arousable, participated in evaluation Nausea / Vomiting: adequately controlled Pain: adequately controlled Airway Patency, RR, SpO2: stable & adequate BP & HR: stable & adequate Hydration State: stable & adequate Neuraxial Anesthesia: was administered, sensory block is resolving Anesthetic Complications: no major complications apparent, pt satisfied with anesthetic care Epidural: removed without complications, with tip intact
[2018-03-25 07:06] LABS: HEMATOCRIT 33.9 % (37-47); HEMOGLOBIN 11.2 g/dL (12.0-16.0)
[2018-03-25] MEDS ORDERED: PRENATAL VITAMIN TAB PO SCH (09:00)
[2018-03-25] MEDS: FERROUS SULFATE 325 MG TAB PO SCH (09:00)
[2018-03-25] MEDS: DOCUSATE SODIUM 100 MG CAP PO SCH ×2 (09:00→19:42)
--- NOTE | 2018-03-25 09:31 | Progress Note ---
Subjective Mar 25, 2018. Subjective conversation w/ patient Ambulation: ambulating normally Voiding: no voiding problems Passing Gas: Yes Diet Tolerance: Regular Diet Lochia: Small Feeding Type: Breast Feeding Review of Systems Constitutional: + fever Objective Vital Signs Date Time Temp Pulse Resp B/P (MAP) Pulse Ox O2 Delivery O2 Flow Rate FiO2 03/25/18 08:00 36.9 79 18 129/78 (95) 97 Room Air 03/25/18 07:45 Room Air 03/25/18 03:30 36.6 77 18 116/73 (87) Room Air 03/25/18 02:05 Room Air 03/25/18 02:05 36.6 74 18 120/79 (93) Room Air Physical Exam General Appearance: WELL-APPEARING Fundus: Firm, Non-Tender Extremities: no pedal edema, no calf tenderness Laboratory Results Last 24 Hours Test 03/24/18 19:54 03/25/18 06:36 White Blood Count 10.46 K/uL Red Blood Count 4.06 M/uL Hemoglobin 12.5 g/dL 11.2 g/dL Hematocrit 36.7 % 33.9 % Mean Corpuscular Volume 90.4 fL Mean Corpuscular Hemoglobin 30.8 pg Mean Corpuscular Hemoglobin Concent 34.1 g/dl RDW Standard Deviation 46.1 fL RDW Coefficient of Variation 14.0 % Platelet Count 166 K/uL Mean Platelet Volume 10.0 fL Assessment and Plan Problem List Medical Problems: (1) Abdominal pain Status: Acute (2) Abdominal pain of unknown cause Status: Acute (3) Acute cholecystitis Status: Acute (4) Allergic reaction Status: Acute (5) Allergic reaction Status: Acute (6) Closed head injury Status: Acute (7) Concussion Status: Acute (8) Fever Status: Acute (9) Gastritis Status: Acute (10) GERD (gastroesophageal reflux disease) Status: Acute (11) Hemorrhoid thrombosis Status: Acute (12) Hyperglycemia Status: Acute (13) Nausea Status: Acute (14) Post-op pain Status: Acute (15) Seasonal allergies Status: Acute (16) Seasonal allergies Status: Acute (17) Shakiness Status: Acute (18) Vasovagal near syncope Status: Acute Post- Day#: 1
[2018-03-25] MEDS: IBUPROFEN 600 MG TAB PO PRN ×2 (09:44→22:08)
[2018-03-25] MEDS ORDERED: NURSING VERBAL MED ORDER ONE (09:45)
[2018-03-25] MEDS: ACETAMINOPHEN 325 MG TAB PO PRN ×2 (11:41→19:41)
[2018-03-25] MEDS ORDERED: [UNRECOGNIZED DRUG - OTHER] PO SCH (20:00)
[2018-03-25] MEDS ORDERED: BISACODYL 5 MG TABEC PO SCH (20:00)
[2018-03-25] MEDS ORDERED: LORATADINE 10 MG PO SCH (20:00)
[2018-03-26 00:15] VITALS: BP 115/73; PULSE 70; TEMP 36.4; O2SAT 97
[2018-03-26] MEDS: IBUPROFEN 600 MG TAB PO PRN (03:10)
--- NOTE | 2018-03-26 06:14 | Progress Note ---
Subjective Mar 26, 2018. Subjective conversation w/ patient Ambulation: ambulating normally Voiding: no voiding problems Passing Gas: Yes Diet Tolerance: Regular Diet Lochia: Small Feeding Type: Breast Feeding Review of Systems Constitutional: + fever Objective Vital Signs Date Time Temp Pulse Resp B/P (MAP) Pulse Ox O2 Delivery O2 Flow Rate FiO2 03/26/18 00:15 Room Air 03/26/18 00:15 36.4 70 18 115/73 (87) 97 Room Air 03/25/18 19:35 117/79 (92) 03/25/18 19:30 100 Room Air 03/25/18 19:30 36.8 58 18 98/64 (75) 100 Room Air 03/25/18 18:10 36.5 82 18 117/82 (94) 100 Room Air 03/25/18 15:20 Room Air 03/25/18 15:20 36.7 71 18 110/69 (83) Room Air 03/25/18 11:35 36.7 78 16 110/74 (86) Room Air 03/25/18 08:00 36.9 79 18 129/78 (95) 97 Room Air 03/25/18 07:45 Room Air Physical Exam General Appearance: WELL-APPEARING Abdomen: non tender Fundus: Firm, Non-Tender Extremities: no pedal edema, no calf tenderness Laboratory Results Last 24 Hours Test 03/25/18 06:36 03/25/18 18:25 Hemoglobin 11.2 g/dL Hematocrit 33.9 % Bedside Glucose 108 mg/dl Assessment and Plan Problem List Medical Problems: (1) Abdominal pain Status: Acute (2) Abdominal pain of unknown cause Status: Acute (3) Acute cholecystitis Status: Acute (4) Allergic reaction Status: Acute (5) Allergic reaction Status: Acute (6) Closed head injury Status: Acute (7) Concussion Status: Acute (8) Fever Status: Acute (9) Gastritis Status: Acute (10) GERD (gastroesophageal reflux disease) Status: Acute (11) Hemorrhoid thrombosis Status: Acute (12) Hyperglycemia Status: Acute (13) Nausea Status: Acute (14) Post-op pain Status: Acute (15) Seasonal allergies Status: Acute (16) Seasonal allergies Status: Acute (17) Shakiness Status: Acute (18) Vasovagal near syncope Status: Acute Post- Day#: 2
--- NOTE | 2018-03-26 06:17 | Discharge Instructions ---
Discharge Instructions Date of Service Mar 26, 2018. Admission Reason for Admission: Check Pre-Term Labor Discharge Discharge Diagnosis / Problem: trem Discharge Goals Goal(s): Routine recovery after delivery Activity Recommendations Activity Limitations: as noted below ACTIVITY RECOMMENDATIONS: * Gradual return to full activity over the next 2-3 weeks. * No lifting - nothing heavier than baby over the next 2-3 weeks. * Do not engage in vigorous exercise, sexual activity or sports until cleared by your physician. * Do not drive or operate any motorized equipment until cleared by your physician. * You may shower/bathe daily. DIET: Resume Previous Diet If Breast-feeding: * Increase caloric intake by 500 calories, eat 3 well balanced meals, 2 high protein snacks a day and drink 6-8 8oz. glasses of fluid per day. BREAST CARE: If you are not breast feeding: * Wear a supportive bra 24 hours a day for one to two weeks. * Avoid stimulating your breasts and nipples as much as possible during the first few weeks after delivery. * When taking a shower, have the warm water hit your back, not breasts. * When your breasts feel full, apply ice packs. Usually three to four times a day helps ease the discomfort. * Take a mild pain medication (Tylenol / Motrin) when you are uncomfortable. If breast feeding: * Use breast milk to lubricate nipples. Lansinoh cream may be used for sore nipples. You do not need to remove cream prior to breast feeding. If using a different brand of cream, check the label for directions regarding removal of cream prior to nursing. * Wear a supportive bra. * If having problems with breasts or breast feeding, call a technical healthcare consultant or your health care provider. OVER THE COUNTER MEDICATION: * For discomfort or pain, you may use Acetaminophen (Tylenol), Ibuprofen (Advil ), or Naproxen (Aleve) following the package directions. * For constipation you may use Colace following the package directions. SPECIAL CARE INSTRUCTIONS: * Vaginal rest (no tampons, douching, intercourse) until after doctor 's visit. * control as discussed with doctor. * Verbalizes understanding of car seat law as reviewed with patient nursing. * Car Seat hand-out given and reviewed with patient by nursing. * Shaken baby information reviewed with patient by nursing. Call you doctor if: * Temperature greater than or equal to 100.4 degrees F or 38.0 degrees C. Take your temperature twice daily for a week. * Bleeding becomes heavier than the heaviest part of your period - saturating a sanitary pad within an hour. * Passing large clots. * Bleeding has a foul smelling odor. * Signs and symptoms of phlebitis: leg pain, warm, red or swollen area on leg. * "Baby Blues" lasting longer than two weeks. ++ If you have had a and incision has increased pain, redness, swelling, presence of any drainage, or if the incision starts to open up. If you have any questions or concerns, call your health care practitioner at [phone]. FOLLOW-UP VISIT: Please call the office at to schedule a 6 week examination. . Current Hospital Diet ACTIVITY RECOMMENDATIONS: * Gradual return to full activity over the next 2-3 weeks. * No lifting - nothing heavier than baby over the next 2-3 weeks. * Do not engage in vigorous exercise, sexual activity or sports until cleared by your physician. * Do not drive or operate any motorized equipment until cleared by your physician. * You may shower/bathe daily. DIET: Resume Previous Diet If Breast-feeding: * Increase caloric intake by 500 calories, eat 3 well balanced meals, 2 high protein snacks a day and drink 6-8 8oz. glasses of fluid per day. BREAST CARE: If you are not breast feeding: * Wear a supportive bra 24 hours a day for one to two weeks. * Avoid stimulating your breasts and nipples as much as possible during the first few weeks after delivery. * When taking a shower, have the warm water hit your back, not breasts. * When your breasts feel full, apply ice packs. Usually three to four times a day helps ease the discomfort. * Take a mild pain medication (Tylenol / Motrin) when you are uncomfortable. If breast feeding: * Use breast milk to lubricate nipples. Lansinoh cream may be used for sore nipples. You do not need to remove cream prior to breast feeding. If using a different brand of cream, check the label for directions regarding removal of cream prior to nursing. * Wear a supportive bra. * If having problems with breasts or breast feeding, call a technical healthcare consultant or your health care provider. OVER THE COUNTER MEDICATION: * For discomfort or pain, you may use Acetaminophen (Tylenol), Ibuprofen (Advil ), or Naproxen (Aleve) following the package directions. * For constipation you may use Colace following the package directions. SPECIAL CARE INSTRUCTIONS: * Vaginal rest (no tampons, douching, intercourse) until after doctor 's visit. * control as discussed with doctor. * Verbalizes understanding of car seat law as reviewed with patient nursing. * Car Seat hand-out given and reviewed with patient by nursing. * Shaken baby information reviewed with patient by nursing. Call you doctor if: * Temperature greater than or equal to 100.4 degrees F or 38.0 degrees C. Take your temperature twice daily for a week. * Bleeding becomes heavier than the heaviest part of your period - saturating a sanitary pad within an hour. * Passing large clots. * Bleeding has a foul smelling odor. * Signs and symptoms of phlebitis: leg pain, warm, red or swollen area on leg. * "Baby Blues" lasting longer than two weeks. ++ If you have had a and incision has increased pain, redness, swelling, presence of any drainage, or if the incision starts to open up. If you have any questions or concerns, call your health care practitioner at [phone]. FOLLOW-UP VISIT: Please call the office at to schedule a 6 week examination. Patient's current hospital diet: Regular OB Diet Discharge Diet Recommended Diet: Regular Diet Pending Studies Studies pending at discharge: no Medical Emergencies . Who to Call and When: Medical Emergencies: If at any time you feel your situation is an emergency, please call 911 immediately. . Non-Emergent Contact Non-Emergency issues call your: Water And Fire Technician Call Non-Emergent contact if: temperature is above 100.5 . . "Provider Documentation" section prepared by Larry Logan. .
[2018-03-26] MEDS ORDERED: BISACODYL 10 MG SUPP PR PRN (07:00)
[2018-03-26 08:00] VITALS: BP 107/63; PULSE 73; TEMP 36.5; O2SAT 99
[2018-03-26] MEDS: DOCUSATE SODIUM 100 MG CAP PO SCH (08:00)
[2018-03-26] MEDS: FERROUS SULFATE 325 MG TAB PO SCH (08:00)
[2018-03-26 15:50] VITALS: BP 106/69; PULSE 73; TEMP 36.8; O2SAT 99
[2018-03-26 16:00] VITALS: BP_DIAS 69; PULSE 73; TEMP 36.8
== END 2018-03-26 18:39 | disposition home or self-care (01) | DRG 775 ==
LOC: C.LD 19:05 → C.OPB 19:05 → C.LD 19:39 → C.OBG 03-25 02:08
PROVIDERS: ADMIT Obstetrics & Gynecology; ATTEND Obstetrics & Gynecology
PROC: 10E0XZZ Delivery of Products of Conception, External Approach (ICD-10-PCS; principal; 2018-03-24)
PROC: 0HQ9XZZ Repair Perineum Skin, External Approach (ICD-10-PCS; principal; 2018-03-24)
DX: O60.14X0 Preterm labor third trimester with preterm delivery third trimester, not applicable or unspecified (principal); O70.0 First degree perineal laceration during delivery; O69.81X0 Labor and delivery complicated by cord around neck, without compression, not applicable or unspecified; Z3A.36 36 weeks gestation of pregnancy; Z37.0 Single live birth

== ENCOUNTER 2023-04-16 15:51 | Inpatient (IN) ==
[2023-04-16] MEDS ORDERED: LIDOCAINE 1% LOCAL 20 ML VIAL INFIL PRN (15:53)
[2023-04-16] MEDS ORDERED: OXYTOCIN 30 UNITS/500 ML BAG IV PRN ×3 (15:53→20:44)
--- OUTSIDE RECORDS SUMMARY | 2023-04-16 16:03 | External Medical Summary | Summary of Care ---
Author Name Unknown Organization [facility] Address [address] [place] [address] Phone [phone] Care Team Providers Care Tire Bladder Maker Name Role Phone Luis Gab Primary Care Provider Reason for Visit * Reason Onset Date Comments Medication Refill 02/07/2023 Encounter Details Date Type Department Care Team Description 02/07/2023 Refill Allergy/Immunology [facility] [address] [place] [address] Valeriy Milton MD Mild intermittent asthma without complication Allergies Active Allergy Reactions Severity Noted Date Comments [place] (Diagnostic) Anaphylaxis High 05/21/2017 Banana Edema airway High 01/10/2017 Cat Dander Anaphylaxis High 05/21/2017 [place] 09/10/2022 Corylus Anaphylaxis High 05/21/2017 Latex Rash Low 01/10/2017 Lac Bovis Other (Please comment) 01/16/2017 Mouth tenderness. Peanut (Diagnostic) Anaphylaxis High 05/21/2017 Prednisone Psych complications 01/17/2017 agitation Sesame Seed (Diagnostic) Anaphylaxis High 05/21/2017 Soy Allergy Anaphylaxis High 01/16/2017 [place] Oil Edema airway High 01/10/2017 Wasp Venom Edema airway High 01/10/2017 documented as of this encounter (statuses as of 02/07/2023) Medications Medication Sig Dispensed Refills Start Date End Date Status Cranberry 250 MG CAPSIndications:ta yinka 500mg a day Take 1 Tab by mouth 2 times a day. Indications: taking 500mg a day 0 Active diphenhydrAMINE (BENADRYL) 25 MG Capsule Take 2 capsules at onset suspected allergic reaction; may repeat every 4-6 hrs. as needed. 40 Cap 1 02/13/2017 Active Saline Nasal [place] 0.65 % Nasal Solution Administer 1 [place] into nostril as needed for Congestion. 0 Active loratadine ODT (CLARITIN REDITAB) 10 MG TBDP Take 1 tab daily for nasal allergy symptoms 0 09/04/2017 Active fluticasone (FLONASE) 50 MCG/ACT nasal spray Administer 2 Sprays into each nostril in the morning. Use as needed for worsening or persistent nasal allergy symptoms. 1 Inhaler 5 06/23/2018 Active albuterol-ipratrop ium (DUONEB) 2.5-0.5 MG/3ML nebulizer solution Inhale 3 mL by mouth every 6 hours as needed (wheezing). 60 Vial 5 10/26/2019 Active Famotidine 20 MG Oral Tablet Take 1 Tablet by mouth 2 times a day as needed for Heartburn (or increased allergy symtpoms). 0 02/08/2020 Active Multi-Vitamin Gummies Oral Tablet Chewable Take 1 Tablet by mouth in the morning. 0 Active EPINEPHrine 0.3 MG/0.3ML Injection Solution Auto-injector (Autoinjector)Jasmyn cations:Allergic reaction, subsequent encounter for severe reaction: place orange end against the outer thigh, press firmly and hold for 10 seconds and go to the emergency room. 2 Each 3 02/12/2022 Active Olopatadine HCl 0.2 % Ophthalmic Solution (Pataday) Use 1 drop in each eye daily as needed for allergic eye symptoms. 5 mL 12 03/26/2022 Active Triamcinolone Acetonide 0.1 % External Cream (Aristocort)Indica tions:Rash and nonspecific skin eruption Apply topically to affected area 2 times a day. To affected area. 60 g 5 09/10/2022 Active Albuterol Sulfate HFA 108 (90 Base) MCG/ACT Inhalation Aerosol SolutionIndication s:Mild intermittent asthma without complication Inhale 2 Puffs by mouth every 4 hours as needed for Cough, Shortness of Breath or Wheezing. 6.7 g 2 02/07/2023 Active Albuterol Sulfate HFA 108 (90 Base) MCG/ACT Inhalation Aerosol SolutionIndication s:Mild intermittent asthma without complication Inhale by mouth 2 Puffs every 4 hours as needed for Cough, Shortness of Breath or Wheezing. 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 Nephrolithiasis 11/04/2013 Overview: Calcium apatite stones, trigger by UTI/infection Allergic rhinitis 12/01/1999 Other atopic dermatitis 12/01/1999 Overview: ICD-10 update of inactive term Esophageal reflux Comments Yes documented as of this encounter (statuses as of 02/07/2023) Resolved Problems Problem Noted Date Resolved Date Reaction to allergy injection 05/19/2019 Pollen-food allergy syndrome 03/28/201708/2018 Encounter for supervision of other normal pregna ncy 03/13/2011 09/11/2016 Overview: ICD-10 update of inactive term Acute bronchitis, complicated 02/25/2010 Asthma with severity to be determined 02/13/2017 Overview: ICD-10 update of inactive term documented as of this encounter (statuses as of 02/07/2023) Immunizations Name Administration Dates Next Due COVID-19 mRNA, LNP-s, No Pre serve, 2-Dose Series (Coravin) 01/02/2021,12/12/2020 PPD 11/21/2007 Seasonal Influenza, Quadriva lent, No Preserve, 6 Mons & Above, IM 07/05/2022,05/12/2021,04/21/2020 TDAP (age 10 and older)(Boostrix) 01/30/2009 documented as of this encounter Social History Tobacco Use Types Packs/Day Years Used Date Smoking Tobacco: Never Smokeless Tobacco: Never Alcohol Use Standard Drinks/Week Comments No 0 (1 standard drink = 0.6 oz pur e alcohol) Comments Yes Sex Assigned at Date Recorded Not on file Job Start Date Occupation Industry Not on file Not on file Not on file documented as of this encounter Miscellaneous Notes * Telephone Encounter - Sho Colorado MD - 02/07/2023 10:28 AM EDTSigned Prescriptions: Disp Refills Albuterol Sulfate HFA 108 (90 Base) MCG/AC*6.7 g 2 Sig: Inhale 2 Puffs by mouth every 4 hours as needed for Cough, Shortness of Breath or Wheezing. Authorizing Provider: SHO [place] * Telephone Encounter - Joann Goodrich LPN - 02/07/2023 10:21 AM EDTPending Prescriptions: Disp Refills Albuterol Sulfate HFA 108 (90 Base) MCG/AC*6.7 g 2 Sig: Inhale 2 Puffs by mouth every 4 hours as needed for Cough, Shortness of Breath or Wheezing. * Telephone Encounter - NELSON Wood Tech - 02/07/2023 10:06 AM EDT [facility] calling to ask for refill on albuterol but needs it listed as one inhaler not 18 gr. I asked [facility] for help and she will pend Thank you for your assistance Rachel Hernandes Chef Saucier II [facility] ([facility]) 02/07/2023,10:07 AM * Telephone Encounter - Ortiz Munguia RPh - 02/07/2023 10:05 AM EDT Pharmacy needs a new script for albuterol that has quantity 6.7g. Patient has no provider to authorize balance of refills on. Forwarding to office for approval. Thank You, Ortiz Munguia, Pharm-D Clinical Pharmacist [facility] ([facility] (Former[facility]) [phone] 02/07/2023, 10:18 AM Did you pend patient's preferred pharmacy and medication before forwarding?yes Pharmacy: [id number] Pending Prescriptions: Disp Refills Albuterol Sulfate HFA 108 (90 Base) MCG/A*6.7 g 2 Sig: Inhale 2 Puffs by mouth every 4 hours as needed for Cough, Shortness of Breath or Wheezing. Last Visit: 03/26/2022 (in office), 08/22/2020 (telemedicine) Next Visit: Visit date not found If no future appointments scheduled, and last appointment is greater than a year ago, please schedule patient for a follow-up appointment Last date the medication was ordered: 06/18/2022 Is this request for a controlled substance?No Urine Drug Screen:No results found for this or any previous visit. Patient Phone Numbers Labs: Lab Results Component Value Date/Time CREAT 1.00 01/14/2017 12:00 AM CREAT 0.7 10/10/2016 03:01 PM POTASSIUM 3.4 (A) 01/14/2017 12:00 AM POTASSIUM 4.4 10/10/2016 03:01 PM TSH 1.320 01/14/2017 12:00 AM TSH 0.80 10/05/2016 01:47 PM ALT 27 10/10/2016 03:01 PM documented in this encounter Plan of Treatment Health Maintenance Due Date Last Done Comments Pneumococcal Vaccine: Pediatrics (0 to 5 Years) and At-Risk Patients (6 to 64 Years) (1 - PCV) 1989 HIV Screening 1998 Hepatitis B (3 of 3 - 3-dose series) 06/19/2000 04/24/2000, 06/12/1999 Hepatitis C Screening 2001 Pap Smear 2013 DTaP,Tdap,and Td Vaccines (3 - Td or Tdap) 01/30/2019 01/30/2009, 02/10/1998 Diabetes Screening 01/15/2020 01/14/2017, 0 10/10/2016, 09/02/2016, Additional history exists Depression Screening, Annual for Pts 12 and Over 04/15/2020 04/15/2019 COVID-19 Vaccine (3 - Pfizer series) 02/27/2021 01/02/2021, 12/12/2020 Influenza Vaccine (FLU shot) Completed , 05/12/2021, 04/21/2020 GARDASIL-HPV IMMUNIZATION SERIES Aged Out No longer eligible based on patient's age to complete this topic MENINGOCOCCAL (MENACTRA/MENVEO) Aged Out No longer eligible based on patient's age to complete this topic documented as of this encounter Medical Devices Not on filedocumented as of this encounter Visit Diagnoses Diagnosis Mild intermittent asthma without complication Unspecified asthma documented in this encounter Advance Directives Latest Code Status on File Code Status Date Activated Date Inactivated Comments Full Code 11/04/2013 2:29 AM 11/04/2013 9:58 PM This order reflects the patients wishes and were consensually agreed upon. Care Teams Tire Bladder Maker Relationship Specialty Start Date End Date Gab Smith DO [address] [place] [address] PCP - General Family Medicine 11/14/18 documented as of this encounter
--- OUTSIDE RECORDS SUMMARY | 2023-04-16 16:04 | External Medical Summary | Summary of Care ---
Author Name Unknown Organization [facility] Address [address] [place] [address] Phone [phone] Care Team Providers Care Design Manager Name Role Phone Gab Smith DO Primary Care Provider Reason for Visit * Reason Onset Date Comments Advice 01/24/2023 Encounter Details Date Type Department Care Team Description 01/24/2023 Telephone Family Practice [facility] [address] [place] [address] Gab Smith DO [address] [facility] [place] [address] Advice Allergies Active Allergy Reactions Severity Noted Date Comments [place] (Diagnostic) Anaphylaxis High 05/21/2017 Banana Edema airway High 01/10/2017 Cat Dander Anaphylaxis High 05/21/2017 [place] 09/10/2022 Corylus Anaphylaxis High 05/21/2017 Latex Rash Low 01/10/2017 Lac Bovis Other (Please comment) 01/16/2017 Mouth tenderness. Peanut (Diagnostic) Anaphylaxis High 05/21/2017 Prednisone Psych complications 01/17/2017 agitation Sesame Seed (Diagnostic) Anaphylaxis High 05/21/2017 Soy Allergy Anaphylaxis High 01/16/2017 [place] Oil Edema airway High 01/10/2017 Wasp Venom Edema airway High 01/10/2017 documented as of this encounter (statuses as of 01/24/2023) Medications Medication Sig Dispensed Refills Start Date End Date Status Cranberry 250 MG CAPSIndications:taki ng 500mg a day Take 1 Tab by mouth 2 times a day. Indications: taking 500mg a day 0 Active diphenhydrAMINE (BENADRYL) 25 MG Capsule Take 2 capsules at onset suspected allergic reaction; may repeat every 4-6 hrs. as needed. 40 Cap 1 02/13/2017 Active Saline Nasal [place] 0.65 % Nasal Solution Administer 1 [place] into nostril as needed for Congestion. 0 Active loratadine ODT (CLARITIN REDITAB) 10 MG TBDP Take 1 tab daily for nasal allergy symptoms 0 09/04/2017 Active fluticasone (FLONASE) 50 MCG/ACT nasal spray Administer 2 Sprays into each nostril in the morning. Use as needed for worsening or persistent nasal allergy symptoms. 1 Inhaler 5 06/23/2018 Active albuterol-ipratropiu m (DUONEB) 2.5-0.5 MG/3ML nebulizer solution Inhale 3 [...] Active EPINEPHrine 0.3 MG/0.3ML Injection Solution Auto-injector (Autoinjector)Indica tions:Allergic reaction, subsequent encounter for severe reaction: place orange end against the outer thigh, press firmly and hold for 10 seconds and go to the emergency room. 2 Each 3 02/12/2022 Active Olopatadine HCl 0.2 % Ophthalmic Solution (Pataday) Use 1 drop in each eye daily as needed for allergic eye symptoms. 5 mL 12 03/26/2022 Active Albuterol Sulfate HFA 108 (90 Base) MCG/ACT Inhalation Aerosol SolutionIndications: Mild intermittent asthma without complication Inhale by mouth 2 Puffs every 4 hours as needed for Cough, Shortness of Breath or Wheezing. 18 g 2 06/18/2022 Active Triamcinolone Acetonide 0.1 % External Cream (Aristocort)Indicati ons:Rash and nonspecific skin eruption Apply topically to affected area 2 times a day. To affected area. 60 g 5 09/10/2022 Active documented as of this encounter (statuses as of 01/24/2023) Active Problems Problem Noted Date Anxiety 03/28/2017 [...] as of this encounter (statuses as of 01/24/2023) Resolved Problems Problem Noted Date Resolved Date Reaction to allergy injection 05/19/2019 Pollen-food allergy syndrome 03/28/201708/2018 Encounter for supervision of other normal pregna ncy 03/13/2011 09/11/2016 Overview: ICD-10 update of inactive term Acute bronchitis, complicated 02/25/2010 Asthma with severity to be determined 02/13/2017 Overview: ICD-10 update of inactive term documented as of this encounter (statuses as of 01/24/2023) Immunizations Name Administration Dates Next Due COVID-19 mRNA, LNP-s, No Pre serve, 2-Dose Series (Pfizer) 01/02/2021,12/12/2020 PPD 11/21/2007 Seasonal Influenza, Quadriva lent, [...] encounter Miscellaneous Notes * Telephone Encounter - Gab Smith DO - 01/24/2023 4:27 PM EDT Spoke with patient. Discussed benefit versus risk of antiviral therapy for COVID-19 illness. Patient is feeling overall improved with continued supportive care. Patient states asthma is stable and pulse ox is normal. Advise continued supportive care and call or return to office if symptoms persist or worsen. * Telephone Encounter - SUSAN Brand - 01/24/2023 3:16 PM EDT Pt calling that she tested positive for covid today (HOME TEST) PT had fever 101.3 on 12/21/22 No fever since Pt has slight cough,slight sinus pressure,sinus congestion and sore throat Pt symptoms are mild and pt is starting to feel better Pt is 25 weeks and spoke with Ob doctor and was told to take 2 regular adult aspirin and was told to call Dr Smith for advice Pt did not start taking Asprin yet because she would like Dr Smith advise Pt asking for a call back at [phone] documented in this encounter Plan of Treatment [...] Over 04/15/2020 04/15/2019 COVID-19 Vaccine (3 - Booster for Pfizer series) 02/27/2021 01/02/2021, 12/12/2020 Influenza Vaccine (FLU shot) Completed , 05/12/2021, 04/21/2020 GARDASIL-HPV IMMUNIZATION SERIES Aged Out No longer eligible based on patient's age to complete this topic MENINGOCOCCAL (MENACTRA/MENVEO) Aged Out No longer eligible based on patient's age to complete this topic documented as of this encounter Medical Devices Not on filedocumented as of this encounter Advance Directives Latest Code Status on File Code Status Date Activated Date Inactivated Comments Full Code 11/04/2013 2:29 AM 11/04/2013 9:58 PM This order reflects the patients wishes and were consensually agreed upon. Care Teams Design Manager Relationship Specialty Start Date End Date Gab Smith DO [address] [place] [id number] PCP - General Family Medicine 11/14/18 documented as of this encounter
--- OUTSIDE RECORDS SUMMARY | 2023-04-16 16:04 | External Medical Summary | Summary of Care ---
Author Name Unknown Organization [place] [address] Care Team Providers Care Asphalt Spreader Name Role Phone Gab Smith Primary Care Provider Reason for Visit * Reason Onset Date Comments Medication Administration 07/05/2022 Flu an d/or Pneumo Inj Encounter Details Date Type Department Care Team Description 07/05/2022 Immunization/In jection Allergy/Immunology [facility] [address] [place] [address] Betty Nurse Allergy [facility] [address] [place] [address] Need for prophylactic vaccination and inoculation against influenza* Allergies Active Allergy Reactions Severity Noted Date Comments [place] (Diagnostic) Anaphylaxis High 05/21/2017 Banana Edema airway High 01/10/2017 Cat Dander Anaphylaxis High 05/21/2017 Corylus Anaphylaxis High 05/21/2017 Latex Rash Low 01/10/2017 Lac Bovis Other (Please comment) 01/16/2017 Mouth tenderness. Peanut (Diagnostic) Anaphylaxis High 05/21/2017 Prednisone Psych complications 01/17/2017 agitation Sesame Seed (Diagnostic) Anaphylaxis High 05/21/2017 Soy Allergy Anaphylaxis High 01/16/2017 [place] Oil Edema airway High 01/10/2017 Wasp Venom Edema airway High 01/10/2017 documented as of this encounter (statuses as of 07/05/2022) Medications Medication Sig Dispensed Refills Start Date End Date Status Cranberry 250 MG CAPSIndications:taki ng 500mg a day Take 1 Tab by mouth 2 times a day. Indications: taking 500mg a day 0 Active diphenhydrAMINE (BENADRYL) 25 MG Capsule Take 2 capsules at onset suspected allergic reaction; may repeat every 4-6 hrs. as needed. 40 Cap 1 02/13/2017 Active saline ([place] NASAL SPRAY) 0.65 % nasal spray Administer 1 [place] into nostril as needed for Congestion. 0 Active loratadine ODT (CLARITIN REDITAB) 10 MG TBDP Take 1 tab daily for nasal allergy symptoms 0 09/04/2017 Active fluticasone (FLONASE) 50 MCG/ACT nasal spray Administer 2 Sprays into each nostril daily. Use as needed for worsening or persistent nasal allergy symptoms 1 Inhaler 5 06/23/2018 Active albuterol-ipratropiu m (DUONEB) 2.5-0.5 MG/3ML nebulizer solution Inhale 3 mL by mouth every 6 hours as needed (wheezing). 60 Vial 5 10/26/2019 Active famotidine (PEPCID) 20 MG Tablet Take 1 Tab by mouth 2 times a day as needed for Heartburn (or increased allergy symtpoms). 0 02/08/2020 Active Multi-Vitamin Gummies Oral Tablet Chewable Take 1 Tab by mouth daily. 0 Active EPINEPHrine 0.3 MG/0.3ML Injection Solution [...] or Wheezing. 18 g 2 06/18/2022 Active documented as of this encounter (statuses as of 07/05/2022) Active Problems Problem Noted Date Anxiety 03/28/2017 [...] ICD-10 update of inactive term Esophageal reflux documented as of this encounter (statuses as of 07/05/2022) Resolved Problems Problem Noted Date Resolved Date Reaction to allergy injection 05/19/2019 Pollen-food allergy syndrome 03/28/201708/2018 Encounter for supervision of other normal pregna ncy 03/13/2011 09/11/2016 Overview: ICD-10 update of inactive term Acute bronchitis, complicated 02/25/2010 Asthma with severity to be determined 02/13/2017 Overview: ICD-10 update of inactive term documented as of this encounter (statuses as of 07/05/2022) Immunizations Name Administration Dates Next Due COVID-19 [...] drink = 0.6 oz pur e alcohol) Sex Assigned at Date Recorded Not on file Job Start Date Occupation Industry Not on file Not on file Not on file documented as of this encounter Progress Notes * Lorene Dhaliwal LPN - 07/05/2022 4:14 PM EST PRE - ADMINISTRATION DOCUMENTATION Are you experiencing any cold symptoms or fever? No Have you had Guillain-Diagonal Syndrome (an illness that causes paralysis) within the last 6 weeks? No Have you had the flu shot in the past? YES Have you ever had a reaction to the flu shot? No Lorene Dhaliwal LPN, 07/05/2022 4:14 PM Immunization Administration Documentation Time Out Procedure Performed: Yes Patient Identified (Ask Name/Date of ): Yes Does the patient have a fever greater than 101 degrees today? No Patient allergic to latex? No VFC Stock: No Immunization(s) verified: Yes, Immunization Name: Flu, VIS Sheet(s) given: Yes Verified Side and Site: Yes Verified Shot(s) with Parent(s)/Patient: Yes documented in this encounter Plan of Treatment Health Maintenance Due Date Last Done Comments Pneumococcal Vaccine: Pediatrics (0 to 5 Years) and At-Risk Patients (6 to 64 Years) (1 - PCV) 1989 HIV Screening 1998 Hepatitis B (3 of 3 - 3-dose series) 06/19/2000 04/24/2000, 06/12/1999 Hepatitis C Screening 2001 PAP SMEAR-EVERY 3 YRS,AGES 21-65 2004 DTaP,Tdap,and Td Vaccines (3 - Td or Tdap) 01/30/2019 01/30/2009, 02/10/1998 Diabetes Screening 01/15/2020 01/14/2017, 0 10/10/2016, 09/02/2016, Additional history exists Depression Screening, Annual for Pts 12 and Over 04/15/2020 04/15/2019 COVID-19 Vaccine (3 - Booster for Pfizer series) 02/27/2021 01/02/2021, 12/12/2020 Influenza Vaccine (FLU shot) (#1) 2022 07/05/2022, 05/12/2021, 04/21/2020 GARDASIL-HPV IMMUNIZATION SERIES Aged Out No longer eligible based on patient's age to complete this topic MENINGOCOCCAL (MENACTRA/MENVEO) Aged Out No longer eligible based on patient's age to complete this topic documented as of this encounter Medical Devices Not on filedocumented as of this encounter Visit Diagnoses Diagnosis Need for prophylactic vaccination and inoculation against influenza- Primary documented in this encounter Advance Directives Latest Code Status on File Code Status Date Activated Date Inactivated Comments Full Code 11/04/2013 2:29 AM 11/04/2013 9:58 PM This order reflects the patients wishes and were consensually agreed upon. Care Teams Asphalt Spreader Relationship Specialty Start Date End Date Gab [place] DO [address] [place] [id number] PCP - General Family Medicine 11/14/18 documented as of this encounter
--- OUTSIDE RECORDS SUMMARY | 2023-04-16 16:04 | External Medical Summary | Summary of Care ---
Author Name Unknown Organization [facility] Address [address] [place] [address] Phone [phone] Care Team Providers Care Traffic Superintendent Name Role Phone Gab Smith DO Primary Care Provider [phone] Reason for Visit * Reason Onset Date Comments Allergy Injection 11/20/2022 Encounter Details Date Type Department Care Team Description 11/20/2022 Immunization/In jection Allergy/Immunology Scenery [facility] [address] [place] [address] Betty, Nurse Allergy Scenery [address] [place] [address] Allergic rhinitis due to pollen, unspecified seasonality* Allergies Active Allergy Reactions Severity Noted Date Comments [place] (Diagnostic) Anaphylaxis High 05/21/2017 Banana Edema airway High 01/10/2017 Cat Dander Anaphylaxis High 05/21/2017 [place] 09/10/2022 Corylus Anaphylaxis High 05/21/2017 Latex Rash Low 01/10/2017 Lac Bovis Other (Please comment) 01/16/2017 Mouth tenderness. Peanut (Diagnostic) Anaphylaxis High 05/21/2017 Prednisone Psych complications 01/17/2017 agitation Sesame Seed (Diagnostic) Anaphylaxis High 05/21/2017 Soy Allergy Anaphylaxis High 01/16/2017 [place] Oil Edema airway High 01/10/2017 Wasp Venom Edema airway High 01/10/2017 documented as of this encounter (statuses as of 11/20/2022) Medications Medication Sig Dispensed Refills Start Date End Date Status Cranberry 250 MG CAPSIndications:taki ng 500mg a day Take 1 Tab by mouth 2 times a day. Indications: taking 500mg a day 0 Active diphenhydrAMINE (BENADRYL) 25 MG Capsule Take 2 capsules at onset suspected allergic reaction; may repeat every 4-6 hrs. as needed. 40 Cap 1 02/13/2017 Active Saline Nasal [place] 0.65 % Nasal Solution Administer 1 [place] into nostril as needed for Congestion. 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 Antihistamines taken prior to injection? yes (If no, may offer the patient Benadryl at 0.5mg/kg rounded to nearest 12.5mg) 2. Have you had increased asthma symptoms (chest tightness, wheezing, coughing, shortness of breath) in the past week? No 3. Have you had allergy symptoms,a cold, respiratory tract infection,fever or flu-like symptoms in the past week? No 4. Did you have any increased allergy or asthma symptoms, hives, generalized itching within 12 hours of receiving your last injection or swelling that persisted in the next day? No 5. Are you on any new medications or eye drops? No 6. Are you or have been diagnosed with a new medical condition? No Today's peak flow - LMP 07/22/2022 (Within Days) *Allergy Injection documentation located in Allergy Injections CPSL Flowsheet* documented in this encounter Plan of Treatment [...] as of this encounter Visit Diagnoses Diagnosis Allergic rhinitis due to pollen, unspecified seasonality- Primary documented in this encounter Advance Directives Latest Code Status on File Code Status Date Activated Date Inactivated Comments Full Code 11/04/2013 2:29 AM 11/04/2013 9:58 PM This order reflects the patients wishes and were consensually agreed upon. Care Teams Traffic Superintendent Relationship Specialty Start Date End Date Gab Smith DO [address] [place] [id number] PCP - General Family Medicine 11/14/18 documented as of this encounter
--- OUTSIDE RECORDS SUMMARY | 2023-04-16 16:04 | External Medical Summary | Summary of Care ---
Author Name Unknown Organization [place] [address] Care Team Providers Care Social Insurance Administrator Name Role Phone Gab Smith DO Primary Care Provider [phone] Reason for Visit * Reason Onset Date Comments Advice 09/10/2022 Encounter Details Date Type Department Care Team Description 09/10/2022 Telephone Allergy/Immunology Jacek Hern[facility]dez [place] [address] [place] [address] Broderick Sullivan MD [address] [place] [address] Advice Allergies Active Allergy Reactions Severity Noted Date Comments [place] (Diagnostic) Anaphylaxis High 05/21/2017 Banana Edema airway High 01/10/2017 Cat Dander Anaphylaxis High 05/21/2017 [place] 09/10/2022 Corylus Anaphylaxis High 05/21/2017 Latex Rash Low 01/10/2017 [place] Other (Please comment) 01/16/2017 Mouth tenderness. Peanut (Diagnostic) Anaphylaxis High 05/21/2017 Prednisone Psych complications 01/17/2017 agitation Sesame Seed (Diagnostic) Anaphylaxis High 05/21/2017 Soy Allergy Anaphylaxis High 01/16/2017 [place] Oil Edema airway High 01/10/2017 Wasp Venom Edema airway High 01/10/2017 documented as of this encounter (statuses as of 09/11/2022) Medications Medication Sig Dispensed Refills Start Date End Date Status Cranberry 250 MG CAPSIndications:taki ng 500mg a day Take 1 Tab by mouth 2 times a day. Indications: taking 500mg a day 0 Active diphenhydrAMINE (BENADRYL) 25 MG Capsule Take 2 capsules at onset suspected allergic reaction; may repeat every 4-6 hrs. as needed. 40 Cap 1 02/13/2017 Active Saline Nasal [place] 0.65 % Nasal Solution Administer 1 [place] into nostril as needed for Congestion. 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 Encounter for supervision of other normal pregna ncy 03/13/2011 09/11/2016 Overview: ICD-10 update of inactive term Acute bronchitis, complicated 02/25/2010 Asthma with severity to be determined 02/13/2017 Overview: ICD-10 update of inactive term documented as of this encounter (statuses as of 09/11/2022) Immunizations Name Administration Dates Next Due COVID-19 mRNA, LNP-s, No Pre serve, 2-Dose Series (ImageTag) 01/02/2021,12/12/2020 PPD 11/21/2007 Seasonal Influenza, Quadriva lent, [...] encounter Miscellaneous Notes * Telephone Encounter - Lorene Dhaliwal LPN - 09/10/2022 2:02 PM EST Pt stopped by to let us know she just found out she is . Pt is asking what the procedure isfor . I advised that we would hold her at the last dose she got and she would come in every 4 weeks until she delivers the baby. Pt expressed understanding. documented in this encounter Plan of Treatment [...] and were consensually agreed upon. Care Teams Social Insurance Administrator Relationship Specialty Start Date End Date Gab Smith DO [address] [place] [address] PCP - General Family Medicine 11/14/18 documented as of this encounter
--- OUTSIDE RECORDS SUMMARY | 2023-04-16 16:04 | External Medical Summary | Summary of Care ---
Author Name Unknown Organization [facility] Address [address] [place] [address] Phone [phone] Care Team Providers Care Youth Care Professional Name Role Phone Gab Smith DO Primary Care Provider Reason for Visit * Reason Onset Date Comments Allergy Injection 12/20/2022 Encounter Details Date Type Department Care Team Description 12/20/2022 Immunization/In jection Allergy/Immunology Scenery [facility] [address] [place] [address] Betty, Nurse Allergy Scenery [address] [place] [address] Allergic rhinitis due to pollen, unspecified seasonality* Allergies Active Allergy Reactions Severity Noted Date Comments [place] (Diagnostic) Anaphylaxis High 05/21/2017 Banana Edema airway High 01/10/2017 Cat Dander Anaphylaxis High 05/21/2017 [place] 09/10/2022 Corylus Anaphylaxis High 05/21/2017 Latex Rash Low 01/10/2017 [place] Other (Please comment) 01/16/2017 Mouth tenderness. Peanut (Diagnostic) Anaphylaxis High 05/21/2017 Prednisone Psych complications 01/17/2017 agitation Sesame Seed (Diagnostic) Anaphylaxis High 05/21/2017 Soy Allergy Anaphylaxis High 01/16/2017 [place] Oil Edema airway High 01/10/2017 Wasp Venom Edema airway High 01/10/2017 documented as of this encounter (statuses as of 12/20/2022) Medications Medication Sig Dispensed Refills Start Date End Date Status Cranberry 250 MG CAPSIndications:taki ng 500mg a day Take 1 Tab by mouth 2 times a day. Indications: taking 500mg a day 0 Active diphenhydrAMINE (BENADRYL) 25 MG Capsule Take 2 capsules at onset suspected allergic reaction; may repeat every 4-6 hrs. as needed. 40 Cap 1 02/13/2017 Active Saline Nasal [place] 0.65 % Nasal Solution Administer 1 [place] into nostril as needed for Congestion. 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 Yes allergies 4. Did you have any increased allergy or asthma symptoms, hives, generalized itching within 12 hours of receiving your last injection or swelling that persisted in the next day? No 5. Are you on any new medications or eye drops? No 6. Are you or have been diagnosed with a new medical condition? Yes Today's peak flow - LMP 07/22/2022 (Within [...] and were consensually agreed upon. Care Teams Youth Care Professional Relationship Specialty Start Date End Date Gab Smith DO [address] [place] [address] PCP - General Family Medicine 11/14/18 documented as of this encounter
--- OUTSIDE RECORDS SUMMARY | 2023-04-16 16:04 | External Medical Summary | Summary of Care ---
Author Name Unknown Organization [place] [address] Care Team Providers Care Supervisor In Charge Name Role Phone Gab Smith DO Primary Care Provider Reason for Visit * Reason Onset Date Comments Allergy Serum 2022 Encounter Details Date Type Department Care Team Description 2022 Nurse Only Allergy/Immunology Scenery [place] [address] [place] [address] Betty Nurse Allergy Scenery [address] [place] [address] Allergy Serum Allergies Active Allergy Reactions Severity Noted Date Comments [place] (Diagnostic) Anaphylaxis High 05/21/2017 Banana Edema airway High 01/10/2017 Cat Dander Anaphylaxis High 05/21/2017 Corylus Anaphylaxis High 05/21/2017 Latex Rash Low 01/10/2017 Lac Bovis Other (Please comment) 01/16/2017 Mouth tenderness. Peanut (Diagnostic) Anaphylaxis High 05/21/2017 Prednisone Psych complications 01/17/2017 agitation Sesame Seed (Diagnostic) Anaphylaxis High 05/21/2017 Soy Allergy Anaphylaxis High 01/16/2017 [place] Oil Edema airway High 01/10/2017 Wasp Venom Edema airway High 01/10/2017 documented as of this encounter (statuses as of 2022) Medications Medication Sig Dispensed Refills Start Date [...] SPRAY) 0.65 % nasal spray Administer 1 [place] into nostril as needed for Congestion. 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 AIT serum(s) prepared per Dr Milton's prescription Lorene Dhaliwal LPN 2022 documented in this encounter Plan of Treatment Scheduled Orders Name Type Priority Associated Diagnoses Orde r Schedule [facility] Procedures Routine Allergic rhinitis due to pollen, unspecified seasonality Ordered: 2022 Health Maintenance Due Date Last Done Comments [...] and were consensually agreed upon. Care Teams Supervisor In Charge Relationship Specialty Start Date End Date Gab Smith DO [address] [facility] [place] [address] PCP - General Family Medicine 11/14/18 documented as of this encounter
--- OUTSIDE RECORDS SUMMARY | 2023-04-16 16:04 | External Medical Summary | Summary of Care ---
Author Name Unknown Organization [facility] Address [place] [address] Care Team Providers Care Bedspread Cutter Name Role Phone Gab Smith Primary Care Provider [phone] Reason for Visit * Reason Onset Date Comments Allergy Injection 09/20/2022 Encounter Details Date Type Department Care Team Description 09/20/2022 Immunization/In jection Allergy/Immunology [facility] [place] [address] [place] [address] Betty Nurse Allergy Scenery [address] [place] [address] Allergic rhinitis due to pollen, unspecified seasonality* Allergies Active Allergy Reactions Severity Noted Date Comments [place] (Diagnostic) Anaphylaxis High 05/21/2017 Banana Edema airway High 01/10/2017 Cat Dander Anaphylaxis High 05/21/2017 [place] 09/10/2022 Corylus Anaphylaxis High 05/21/2017 Latex Rash Low 01/10/2017 [place] Other (Please comment) 01/16/2017 Mouth tenderness. Peanut (Diagnostic) Anaphylaxis High 05/21/2017 Prednisone Psych complications 01/17/2017 agitation Sesame Seed (Diagnostic) Anaphylaxis High 05/21/2017 Soy Allergy Anaphylaxis High 01/16/2017 [place] Oil Edema airway High 01/10/2017 Wasp Venom Edema airway High 01/10/2017 documented as of this encounter (statuses as of 09/20/2022) Medications Medication Sig Dispensed Refills Start Date End Date Status Cranberry 250 MG CAPSIndications:taki ng 500mg a day Take 1 Tab by mouth 2 times a day. Indications: taking 500mg a day 0 Active diphenhydrAMINE (BENADRYL) 25 MG Capsule Take 2 capsules at onset suspected allergic reaction; may repeat every 4-6 hrs. as needed. 40 Cap 1 02/13/2017 Active Saline Nasal [place] 0.65 % Nasal Solution Administer 1 [place] into nostril as needed for Congestion. 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 Encounter for supervision of other normal pregna ncy 03/13/2011 09/11/2016 Overview: ICD-10 update of inactive term Acute bronchitis, complicated 02/25/2010 Asthma with severity to be determined 02/13/2017 Overview: ICD-10 update of inactive term documented as of this encounter (statuses as of 09/20/2022) Immunizations Name Administration Dates Next Due COVID-19 mRNA, LNP-s, No Pre serve, 2-Dose Series (thredUP) 01/02/2021,12/12/2020 PPD 11/21/2007 Seasonal Influenza, Quadriva lent, [...] Progress Notes * Lorene Dhaliwal LPN - 09/20/2022 12:23 PM EST Pre-injection Questionnaire Patient identified by stating name [...] and were consensually agreed upon. Care Teams Bedspread Cutter Relationship Specialty Start Date End Date Gab Smith DO [address] [facility] [place] [address] PCP - General Family Medicine 11/14/18 documented as of this encounter
--- OUTSIDE RECORDS SUMMARY | 2023-04-16 16:04 | External Medical Summary | Summary of Care ---
Author Name Unknown Organization [facility] Address [address] [place] [address] Phone [phone] Care Team Providers Care Cloth Worker Name Role Phone Gab Smith DO Primary Care Provider Reason for Visit * Reason Onset Date Comments Allergy Injection 10/19/2022 Encounter Details Date Type Department Care Team Description 10/19/2022 Immunization/In jection Allergy/Immunology Scenery [facility] [address] [place] [address] Betty, Nurse Allergy Scenery [address] [place] [address] Allergic rhinitis due to pollen, unspecified seasonality* Allergies Active Allergy Reactions Severity Noted Date Comments [place] (Diagnostic) Anaphylaxis High 05/21/2017 Banana Edema airway High 01/10/2017 Cat Dander Anaphylaxis High 05/21/2017 [place] 09/10/2022 Corylus Anaphylaxis High 05/21/2017 Latex Rash Low 01/10/2017 [place] Other (Please comment) 01/16/2017 Mouth tenderness. Peanut (Diagnostic) Anaphylaxis High 05/21/2017 Prednisone Psych complications 01/17/2017 agitation Sesame Seed (Diagnostic) Anaphylaxis High 05/21/2017 Soy Allergy Anaphylaxis High 01/16/2017 [place] Oil Edema airway High 01/10/2017 Wasp Venom Edema airway High 01/10/2017 documented as of this encounter (statuses as of 10/19/2022) Medications Medication Sig Dispensed Refills Start Date End Date Status Cranberry 250 MG CAPSIndications:taki ng 500mg a day Take 1 Tab by mouth 2 times a day. Indications: taking 500mg a day 0 Active diphenhydrAMINE (BENADRYL) 25 MG Capsule Take 2 capsules at onset suspected allergic reaction; may repeat every 4-6 hrs. as needed. 40 Cap 1 02/13/2017 Active Saline Nasal [place] 0.65 % Nasal Solution Administer 1 [place] into nostril as needed for Congestion. 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 Care Teams Cloth Worker Relationship Specialty Start Date End Date Gab Smith DO [address] [facility] [place] [id number] PCP - General Family Medicine 11/14/18 documented as of this encounter
--- OUTSIDE RECORDS SUMMARY | 2023-04-16 16:04 | External Medical Summary | Summary of Care ---
Author Name Unknown Organization [facility] Address [place] [address] Care Team Providers Care Strategic Planning Specialist Name Role Phone Gab Smith Primary Care Provider Reason for Visit * Reason Onset Date Comments Allergy Injection 08/21/2022 Encounter Details Date Type Department Care Team Description 08/21/2022 Immunization[facility] [place] [address] [place] [address] Betty Nurse Allergy Scenery [address] [place] [address] Allergic rhinitis due to pollen, unspecified seasonality* Allergies Active Allergy Reactions Severity Noted Date Comments [place] (Diagnostic) Anaphylaxis High 05/21/2017 Banana Edema airway High 01/10/2017 Cat Dander Anaphylaxis High 05/21/2017 [place]lus Anaphylaxis High 05/21/2017 Latex Rash Low 01/10/2017 [place] Other (Please comment) 01/16/2017 Mouth tenderness. Peanut (Diagnostic) Anaphylaxis High 05/21/2017 Prednisone Psych complications 01/17/2017 agitation Sesame Seed (Diagnostic) Anaphylaxis High 05/21/2017 Soy Allergy Anaphylaxis High 01/16/2017 [place] Oil Edema airway High 01/10/2017 Wasp Venom Edema airway High 01/10/2017 documented as of this encounter (statuses as of 08/21/2022) Medications Medication Sig Dispensed Refills Start Date [...] SPRAY) 0.65 % nasal spray Administer 1 [place] into nostril as needed for Congestion. 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 No Today's peak flow - There were no vitals taken for this visit. *Allergy Injection documentation located in Allergy Injections [...] and were consensually agreed upon. Care Teams Strategic Planning Specialist Relationship Specialty Start Date End Date Gab Smith DO [address] [place] [address] PCP - General Family Medicine 11/14/18 documented as of this encounter
--- OUTSIDE RECORDS SUMMARY | 2023-04-16 16:04 | External Medical Summary | Summary of Care ---
Author Name Unknown Organization [facility] Address [place] [address] Care Team Providers Care Assurance Analyst Name Role Phone Gab Smith Primary Care Provider Reason for Visit * Reason Onset Date Comments Allergy Injection 07/20/2022 Encounter Details Date Type Department Care Team Description 07/20/2022 Immunization/In jection Allergy/Immunology [facility] [place] [address] [place] [address] Betty Nurse Allergy Scenery [address] [place] [address] Allergic rhinitis, unspecified seasonality, unspecified trigger* Allergies Active Allergy Reactions Severity Noted Date Comments [place] (Diagnostic) Anaphylaxis High 05/21/2017 Banana Edema airway High 01/10/2017 Cat Dander Anaphylaxis High 05/21/2017 Corylus Anaphylaxis High 05/21/2017 Latex Rash Low 01/10/2017 Lac Bovis Other (Please comment) 01/16/2017 Mouth tenderness. Peanut (Diagnostic) Anaphylaxis High 05/21/2017 Prednisone Psych complications 01/17/2017 agitation Sesame Seed (Diagnostic) Anaphylaxis High 05/21/2017 Soy Allergy Anaphylaxis High 01/16/2017 [place] Oil Edema airway High 01/10/2017 Wasp Venom Edema airway High 01/10/2017 documented as of this encounter (statuses as of 07/20/2022) Medications Medication Sig Dispensed Refills Start Date [...] SPRAY) 0.65 % nasal spray Administer 1 [place] into nostril as needed for Congestion. 0 [...] as of this encounter (statuses as of 07/20/2022) Active Problems Problem Noted Date Anxiety 03/28/2017 [...] as of this encounter (statuses as of 07/20/2022) Resolved Problems Problem Noted Date Resolved Date Reaction to allergy injection 05/19/2019 Pollen-food allergy syndrome 03/28/201708/2018 Encounter for supervision of other normal pregna ncy 03/13/2011 09/11/2016 Overview: ICD-10 update of inactive term Acute bronchitis, complicated 02/25/2010 Asthma with severity to be determined 02/13/2017 Overview: ICD-10 update of inactive term documented as of this encounter (statuses as of 07/20/2022) Immunizations Name Administration Dates Next Due COVID-19 [...] as of this encounter Progress Notes * Loerne Dhaliwal LPN - 07/20/2022 12:37 PM EST Pre-injection Questionnaire Patient identified by [...] of this encounter Visit Diagnoses Diagnosis Allergic rhinitis, unspecified seasonality, unspecified trigger- Primary documented in this encounter Advance Directives Latest Code Status on File Code Status Date Activated Date Inactivated Comments Full Code 11/04/2013 2:29 AM 11/04/2013 9:58 PM This order reflects the patients wishes and were consensually agreed upon. Care Teams Assurance Analyst Relationship Specialty Start Date End Date Gab Smith DO [address] [address] PCP - General Family Medicine 11/14/18 documented as of this encounter
--- OUTSIDE RECORDS SUMMARY | 2023-04-16 16:04 | External Medical Summary | Summary of Care ---
Author Name Unknown Organization [place] [address] Care Team Providers Care Library Clerical Assistant Name Role Phone Gab Smith DO Primary Care Provider [phone] Reason for Visit * Reason Comments Acute Pt in today for a ra sh on her torso. Noticed rash yesterday.Positive test yesterday Encounter Details Date Type Department Care Team Description 09/10/2022 Office Visit General Internal Medicine [facility] [address] [place] [address] Darren De Leon MD [address] [place] [address] Rash and nonspecific skin eruption*; state, incidental; Intermittent asthma with reliever use up to twice per week without complication Allergies Active Allergy Reactions Severity Noted Date Comments [place] (Diagnostic) Anaphylaxis High 05/21/2017 Banana Edema airway High 01/10/2017 Cat Dander Anaphylaxis High 05/21/2017 [place] 09/10/2022 Corylus Anaphylaxis High 05/21/2017 Latex Rash Low 01/10/2017 Lac Bovis Other (Please comment) 01/16/2017 Mouth tenderness. Peanut (Diagnostic) Anaphylaxis High 05/21/2017 Prednisone Psych complications 01/17/2017 agitation Sesame Seed (Diagnostic) Anaphylaxis High 05/21/2017 Soy Allergy Anaphylaxis High 01/16/2017 [place] Oil Edema airway High 01/10/2017 Wasp Venom Edema airway High 01/10/2017 documented as of this encounter (statuses as of 09/10/2022) Medications Medication Sig Dispensed Refills Start Date End Date Status Cranberry 250 MG CAPSIndications:taki ng 500mg a day Take 1 Tab by mouth 2 times a day. Indications: taking 500mg a day 0 Active diphenhydrAMINE (BENADRYL) 25 MG Capsule Take 2 capsules at onset suspected allergic reaction; may repeat every 4-6 hrs. as needed. 40 Cap 1 02/13/2017 Active Saline Nasal [place] 0.65 % Nasal Solution Administer 1 [place] into nostril as needed for Congestion. 0 [...] as of this encounter (statuses as of 09/10/2022) Active Problems Problem Noted Date Anxiety 03/28/2017 [...] as of this encounter (statuses as of 09/10/2022) Resolved Problems Problem Noted Date Resolved Date Reaction to allergy injection 05/19/2019 Pollen-food allergy syndrome 03/28/201708/2018 Encounter for supervision of other normal pregna ncy 03/13/2011 09/11/2016 Overview: ICD-10 update of inactive term Acute bronchitis, complicated 02/25/2010 Asthma with severity to be determined 02/13/2017 Overview: ICD-10 update of inactive term documented as of this encounter (statuses as of 09/10/2022) Immunizations Name Administration Dates Next Due COVID-19 [...] on file documented as of this encounter Last Filed Vital Signs Vital Sign Reading Time Taken Comments Blood Pressure 118/70 09/10/2022 12:27 PM EST Pulse 90 09/10/2022 12:27 PM EST Temperature 37 C (98.6 F) 09/10/2022 12:27 PM EST Respiratory Rate 16 09/10/2022 12:27 PM EST Oxygen Saturation - - Inhaled Oxygen Concentration - - Weight - - Height - - Body Mass Index - - documented in this encounter Progress Notes * Darren De Leon MD - 09/10/2022 12:41 PM EST Chief Complaint Patient presents with Acute Pt in today for a rash on her torso. Noticed rash yesterday. Positive test yesterday SUBJECTIVE: Regina Duncan is a 37 year old female with PMH as below who presents for Acute. C/o rash that started yesterday, on torso. Is itchy, but not raised, not on hands, feet, only on torso. Hypoallergenic soap helped. Was ill 1.5 weeks ago with 'a bug'/virus, but is over this. No one else at home with rash, no bleeding, fevers, chills, pain. Denies new creams, soaps, medications, detergents, or jewelry. She notes just found out yesterday. 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 Indications: taking 500mg a day Saline Nasal [place] 0.65 % Nasal Solution Administer 1 [place] into nostril as needed for Congestion. loratadine ODT (CLARITIN REDITAB) 10 MG TBDP Take 1 tab daily for nasal allergy symptoms fluticasone (FLONASE) 50 MCG/ACT nasal spray Administer 2 Sprays into each nostril in the morning. Use as needed for worsening or persistent nasal allergy symptoms. 1 Inhaler 5 albuterol-ipratropium (DUONEB) 2.5-0.5 MG/3ML nebulizer solution Inhale 3 mL by mouth every 6 hours as needed (wheezing). 60 Vial 5 Famotidine 20 MG Oral Tablet Take 1 Tablet by mouth 2 times a day as needed for Heartburn (or increased allergy symtpoms). Multi-Vitamin Gummies Oral Tablet Chewable Take 1 Tablet by mouth in the morning. Olopatadine HCl 0.2 % Ophthalmic Solution (Pataday) Use 1 drop in each eye daily as needed for allergic eye symptoms. 5 mL 12 Albuterol Sulfate HFA 108 (90 Base) MCG/ACT Inhalation Aerosol Solution Inhale by mouth 2 Puffsevery 4 hours as needed for Cough, Shortness of Breath or Wheezing. 18 g 2 Triamcinolone Acetonide 0.1 % External Cream (Aristocort) Apply topically to affected area 2 times a day. To affected area. 60 g 5 diphenhydrAMINE (BENADRYL) 25 MG Capsule Take 2 capsules at onset suspected allergic reaction; may repeat every 4-6 hrs. as needed. 40 Cap 1 EPINEPHrine 0.3 MG/0.3ML Injection Solution Auto-injector (Autoinjector) for severe reaction: place orange end against the outer thigh, press firmly and hold for 10 seconds and go to the emergency room. 2 Each 3 No current facility-administered medications for this visit. Review of patient's allergies indicates: Allergen Reactions [place] (Diagnostic) Anaphylaxis Banana Edema airway Cat Dander Anaphylaxis [place] Tree Pollen [Corylus] Anaphylaxis Peanut (Diagnostic) Anaphylaxis Sesame Seed (Diagnostic) Anaphylaxis Soy Allergy Anaphylaxis [place] Oil Edema airway Wasp Venom Edema airway Paguate Milk [Lac Bovis] Other (Please comment) Mouth tenderness. Prednisone Psych complications agitation Latex Rash Health Maintenance Due Topic Date Due Pneumococcal Vaccine: Pediatrics (0 to 5 Years) and At-Risk Patients (6 to 64 Years) (1 - PCV) Never done HIV Screening Never done Hepatitis B (3 of 3 - 3-dose series) 06/19/2000 Hepatitis C Screening Never done PAP SMEAR-EVERY 3 YRS,AGES 21-65 Never done DTaP,Tdap,and Td Vaccines (3 - Td or Tdap) 01/30/2019 Diabetes Screening 01/15/2020 Depression Screening, Annual for Pts 12 and Over 04/15/2020 COVID-19 Vaccine (3 - Booster for Pfizer series) 02/27/2021 ROS: CONSTITUTIONAL: No change in weight, No weakness and No fevers, sweats, or chills SKIN/INTEGUMENTARY: No edema and per hpi ALL OTHER SYSTEMS NEGATIVE I reviewed social, PMH, PSH, and family history and updated where needed. 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 Tobacco Use Smoking status: Never Smokeless tobacco: Never Substance and Sexual Activity Alcohol use: No Drug use: No Sexual activity: Never Other Topics Concern Not on file Social History Narrative Not on file Social Determinants of Health Financial Resource Strain: Not on file Food Insecurity: Not on file Transportation Needs: Not on file Physical Activity: Not on file Stress: Not on file Social Connections: Not on file Intimate Partner Violence: Not on file Housing Stability: Not on file Past Medical History: Diagnosis Date Asthma, severity to be determined Eczema 12/01/1999 Esophageal reflux Nephrolithiasis 11/04/2013 Calcium apatite stones, trigger by UTI/infection Past Surgical History: Procedure Laterality Date APPENDECTOMY W/OTHER PROCEDURE DENTAL SURGERY PROCEDURE NEC REMOVE GALLBLADDER 08/24/2016 Family History Problem Relation Age of Onset Heart Disorder Father Endocrine Disorder Father high cholesterol Heart Disorder Grandmother (Paternal) Heart Disorder Grandfather (Paternal) Allergies Son tree nut allergy Allergies Daughter food allergy - strawberry OBJECTIVE: PHYSICAL EXAM: BP 118/70 | Pulse 90 | Temp 37 C (98.6 F) (Tympanic) | Resp 16 | LMP 07/22/2022 (Within Days) General: alert, healthy and no distress Head: Normocephalic, No masses, lesions or abnormalities Skin: faint red macular rash bilateral abdomen, flank, w/o raised lesions, no vesicles, warmth or pain, no open wounds, no lesions on fingers, hands, webs of hands or arm. Small scab x4 on lower neckw/o warmth or discharge Neck: no stridor or wheeze Psych: normal affect, no flight of ideas or tangential thought, good eye contact, no pressured speech I reviewed last gfr, glucose ASSESSMENT: R21 Rash and nonspecific skin eruption (primary encounter diagnosis) Z33.1 state, incidental J45.20 Intermittent asthma with reliever use up to twice per week without complication PLAN: Rash and nonspecific skin eruption (Primary) - Triamcinolone Acetonide 0.1 % External Cream (Aristocort); Apply topically to affected area 2 times a day. To affected area. Wonder if possible allergy,can try benadryl as safe for , we also discussed could be post viral or other etiology. No sign of shingles, but told what to look for (Pain, vessicles) Discussed pro/con, risk with using topical in , would like to try, will use sparingly Patient to call if increase in warmth, pain, size, swelling, fevers, chills, if no better or worsening, t/c derm state, incidental She has contacted ob Intermittent asthma with reliever use up to twice per week without complication Cont inhalers Follow Up: Return if symptoms worsen or fail to improve. Darren De Leon MD documented in this encounter Nursing Notes * Mari Botello LPN - 09/10/2022 12:23 PM EST Chief Complaint Patient presents with Acute Pt in today for a rash on her torso. Noticed rash yesterday documented in this encounter Plan of Treatment [...] as of this encounter Visit Diagnoses Diagnosis Rash and nonspecific skin eruption- Primary Rash and other nonspecific skin eruption state, incidental Intermittent asthma with reliever use up to twice per week without complication documented in this encounter Advance Directives Latest Code Status on File Code Status Date Activated Date Inactivated Comments Full Code 11/04/2013 2:29 AM 11/04/2013 9:58 PM This order reflects the patients wishes and were consensually agreed upon. Care Teams Library Clerical Assistant Relationship Specialty Start Date End Date Gab Smith DO [address] [place] [address] [place] [address] PCP - General Family Medicine 11/14/18 documented as of this encounter"
[2023-04-16] MEDS: LACTATED RINGER'S 1,000 ML IV PRN ×2 (16:05→17:09)
--- OUTSIDE RECORDS SUMMARY | 2023-04-16 16:05 | External Medical Summary | Summary of Care ---
Author Name Unknown Organization [place] [address] Care Team Providers Care Retail Grocer Name Role Phone Gab Smith Primary Care Provider [phone] Reason for Visit * Reason Onset Date Comments Allergy Injection 06/28/2022 Encounter Details Date Type Department Care Team Description 06/28/2022 Immunization[facility]In [facility]ection [facility] [place] [address] [place] [address] Betty Nurse Allergy Scenery [address] [place] [address] Allergic rhinitis, unspecified seasonality, unspecified trigger* Allergies Active Allergy Reactions Severity Noted Date Comments [place] (Diagnostic) Anaphylaxis High 05/21/2017 Banana Edema airway High 01/10/2017 Cat Dander Anaphylaxis High 05/21/2017 Corylus Anaphylaxis High 05/21/2017 Latex Rash Low 01/10/2017 Lac Bovis Other (Please comment) 01/16/2017 Mouth tenderness. Peanut (Diagnostic) Anaphylaxis High 05/21/2017 Prednisone Psych complications 01/17/2017 agitation Sesame Seed (Diagnostic) Anaphylaxis High 05/21/2017 Soy Allergy Anaphylaxis High 01/16/2017 [place] Oil Edema airway High 01/10/2017 Wasp Venom Edema airway High 01/10/2017 documented as of this encounter (statuses as of 06/28/2022) Medications Medication Sig Dispensed Refills Start Date [...] SPRAY) 0.65 % nasal spray Administer 1 [place] into nostril as needed for Congestion. 0 [...] as of this encounter (statuses as of 06/28/2022) Active Problems Problem Noted Date Anxiety 03/28/2017 [...] as of this encounter (statuses as of 06/28/2022) Resolved Problems Problem Noted Date Resolved Date Reaction to allergy injection 05/19/2019 Pollen-food allergy syndrome 03/28/201708/2018 Encounter for supervision of other normal pregna ncy 03/13/2011 09/11/2016 Overview: ICD-10 update of inactive term Acute bronchitis, complicated 02/25/2010 Asthma with severity to be determined 02/13/2017 Overview: ICD-10 update of inactive term documented as of this encounter (statuses as of 06/28/2022) Immunizations Name Administration Dates Next Due COVID-19 mRNA, LNP-s, No Pre serve, 2-Dose Series (Pfizer) 01/02/2021,12/12/2020 PPD 11/21/2007 Seasonal Influenza, Quadriva lent, No Preserve, 6 Mons & Above, IM 05/12/2021,04/21/2020 TDAP (age 10 and older)(Boostrix) 01/30/2009 documented [...] as of this encounter Progress Notes * Bhavana Saleh LPN - 06/28/2022 4:07 PM EST Pre-injection Questionnaire Patient identified by [...] 12/12/2020 Influenza Vaccine (FLU shot) (#1) 2022 05/12/2021, 04/21/2020 GARDASIL-HPV IMMUNIZATION SERIES Aged Out [...] and were consensually agreed upon. Care Teams Retail Grocer Relationship Specialty Start Date End Date Gab Smith DO [address] [address] PCP - General Family Medicine 11/14/18 documented as of this encounter
--- OUTSIDE RECORDS SUMMARY | 2023-04-16 16:05 | External Medical Summary | Summary of Care ---
Author Name Unknown Organization [place] [address] Care Team Providers Care Applications Scientist Name Role Phone Gab Smith Primary Care Provider Reason for Visit * Reason Onset Date Comments Allergy Injection 06/18/2022 Encounter Details Date Type Department Care Team Description 06/18/2022 Immunization/In jection [facility] [place] [address] [place] [address] Betty Nurse Allergy Scenery [address] [place] [address] Allergic rhinitis, unspecified seasonality, unspecified trigger* Allergies Active Allergy Reactions Severity Noted Date Comments [place] (Diagnostic) Anaphylaxis High 05/21/2017 Banana Edema airway High 01/10/2017 Cat Dander Anaphylaxis High 05/21/2017 Corylus Anaphylaxis High 05/21/2017 Latex Rash Low 01/10/2017 Lac Bovis Other (Please comment) 01/16/2017 Mouth tenderness. Peanut (Diagnostic) Anaphylaxis High 05/21/2017 Prednisone Psych complications 01/17/2017 agitation Sesame Seed (Diagnostic) Anaphylaxis High 05/21/2017 Soy Allergy Anaphylaxis High 01/16/2017 [place] Oil Edema airway High 01/10/2017 Wasp Venom Edema airway High 01/10/2017 documented as of this encounter (statuses as of 06/18/2022) Medications Medication Sig Dispensed Refills Start Date [...] SPRAY) 0.65 % nasal spray Administer 1 [place] into nostril as needed for Congestion. 0 [...] 1 Tab by mouth daily. 0 Active Albuterol Sulfate HFA 108 (90 Base) MCG/ACT Inhalation Aerosol SolutionIndications: Mild intermittent asthma without complication Inhale 2 Puffs by mouth every 4 hours as needed for Cough, Shortness of Breath or Wheezing. 18 g 2 06/15/2021 Active EPINEPHrine 0.3 MG/0.3ML Injection Solution Auto-injector [...] eye symptoms. 5 mL 12 03/26/2022 Active documented as of this encounter (statuses as of 06/18/2022) Active Problems Problem Noted Date Anxiety 03/28/2017 [...] as of this encounter (statuses as of 06/18/2022) Resolved Problems Problem Noted Date Resolved Date Reaction to allergy injection 05/19/2019 Pollen-food allergy syndrome 03/28/201708/2018 Encounter for supervision of other normal pregna ncy 03/13/2011 09/11/2016 Overview: ICD-10 update of inactive term Acute bronchitis, complicated 02/25/2010 Asthma with severity to be determined 02/13/2017 Overview: ICD-10 update of inactive term documented as of this encounter (statuses as of 06/18/2022) Immunizations Name Administration Dates Next Due COVID-19 mRNA, LNP-s, No Pre serve, 2-Dose Series ([employer]) 01/02/2021,12/12/2020 Diptheria/Tetanus (Adult) 02/10/19982007 HEP A - Hepatitis A (Ped/Adole, 2-18 Yrs) 1999,06/12/1999 HEP B - Hepatitis B (Adole/High Risk Ped, 11-15 yrs 06/12/1999 07/13/1999 Hepatitis B, 0-19 yrs 04/24/2000 05/24/2000 MMR - Measles/Mumps/Rubella Vaccine 03/08/1995 PPD 11/21/2007,06/04/2001 Seasonal Influenza, Quadriva lent, No Preserve, 6 Mons & Above, IM 05/12/2021,04/21/2020 TB Felicitas Test 07/01/1998 TDAP (age 10 and older)(Boostrix) 01/30/2009 documented as of this encounter Social History Tobacco Use Types Packs/Day Years Used Date Never Smoker Smokeless Tobacco: Never Used Alcohol Use Standard Drinks/Week Comments No 0 (1 standard drink = 0.6 oz pur e alcohol) Sex Assigned at Date Recorded Not on file Job Start Date Occupation Industry Not on file Not on file Not on file documented as of this encounter Progress Notes * Lorene Dhaliwal LPN - 06/18/2022 3:27 PM EDT Pre-injection Questionnaire Patient identified by [...] Hepatitis B (3 of 3 - 3-dose primary series) 06/19/2000 04/24/2000, 06/12/1999 Hepatitis C Screening [...] this topic documented as of this encounter Implants Not on filedocumented as of this encounter Visit Diagnoses Diagnosis Allergic rhinitis, unspecified seasonality, unspecified trigger- Primary documented in this encounter Advance Directives Documents on File Type Date Recorded Patient Material Clerk Expl anation Advanced Directive service a trevor default Advanced Directive Advanced Directive Advanced Directive Advanced Directive Advanced Directive Advanced Directive Advanced Directive Advanced Directive Advanced Directive Advanced Directive Advanced Directive Advanced Directive Advanced Directive Advanced Directive Advanced Directive Advanced Directive Advanced Directive Advanced Directive Advanced Directive Advanced Directive Advanced Directive Advanced Directive Advanced Directive Advanced Directive Advanced Directive Advanced Directive Advanced Directive Advanced Directive Advanced Directive Advanced Directive Advanced Directive Advanced Directive Advanced Directive Advanced Directive Advanced Directive Advanced Directive Advanced Directive Advanced Directive Advanced Directive Advanced Directive Advanced Directive Advanced Directive Advanced Directive Advanced Directive Advanced Directive Advanced Directive Advanced Directive Advanced Directive Advanced Directive Advanced Directive Advanced Directive Advanced Directive Advanced Directive Advanced Directive Advanced Directive Advanced Directive Advanced Directive Advanced Directive Advanced Directive Advanced Directive Advanced Directive Advanced Directive Advanced Directive Advanced Directive Advanced Directive Advanced Directive Advanced Directive Advanced Directive Advanced Directive Advanced Directive Advanced Directive Advanced Directive Advanced Directive Advanced Directive Advanced Directive Advanced Directive Advanced Directive Advanced Directive Advanced Directive Advanced Directive Advanced Directive Advanced Directive Advanced Directive Advanced Directive Advanced Directive Advanced Directive Advanced Directive Advanced Directive Advanced Directive Advanced Directive Advanced Directive Advanced Directive Advanced Directive Advanced Directive Advanced Directive Advanced Directive Advanced Directive Advanced Directive Advanced Directive Advanced Directive Advanced Directive Advanced Directive Advanced Directive 11/04/2013 11:18 AM Latest Code Status on File Code Status Date Activated Date Inactivated Comments Full Code 11/04/2013 2:29 AM 11/04/2013 9:58 PM This order reflects the patients wishes and were consensually agreed upon. Care Teams Applications Scientist Relationship Specialty Start Date End Date Gab Smith DO [address] [place] [address] PCP - General Family Medicine 11/14/18 documented as of this encounter
--- OUTSIDE RECORDS SUMMARY | 2023-04-16 16:05 | External Medical Summary | Summary of Care ---
Author Name Unknown Organization [place] [address] Care Team Providers Care Band Singer Name Role Phone Gab Smith Primary Care Provider [phone] Reason for Visit * Reason Onset Date Comments Allergy Injection 06/08/2022 Encounter Details Date Type Department Care Team Description 06/08/2022 Immunization[facility]In [facility] [place] [address] [place] [address] Betty Nurse All[facility] Scenery [address] [place] [address] Allergic rhinitis, unspecified seasonality, unspecified trigger* Allergies Active Allergy Reactions Severity Noted Date Comments [place] (Diagnostic) Anaphylaxis High 05/21/2017 Banana Edema airway High 01/10/2017 Cat Dander Anaphylaxis High 05/21/2017 Corylus Anaphylaxis High 05/21/2017 Latex Rash Low 01/10/2017 Lac Bovis Other (Please comment) 01/16/2017 Mouth tenderness. Peanut (Diagnostic) Anaphylaxis High 05/21/2017 Prednisone Psych complications 01/17/2017 agitation Sesame Seed (Diagnostic) Anaphylaxis High 05/21/2017 Soy Allergy Anaphylaxis High 01/16/2017 [place] Oil Edema airway High 01/10/2017 Wasp Venom Edema airway High 01/10/2017 documented as of this encounter (statuses as of 06/08/2022) Medications Medication Sig Dispensed Refills Start Date [...] SPRAY) 0.65 % nasal spray Administer 1 [place] into nostril as needed for Congestion. 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 Encounter for supervision of other normal pregna ncy 03/13/2011 09/11/2016 Overview: ICD-10 update of inactive term Acute bronchitis, complicated 02/25/2010 Asthma with severity to be determined 02/13/2017 Overview: ICD-10 update of inactive term documented as of this encounter (statuses as of 06/08/2022) Immunizations Name Administration Dates Next Due COVID-19 mRNA, LNP-s, No Pre serve, 2-Dose Series ([place]) 01/02/2021,12/12/2020 Diptheria/Tetanus (Adult) 02/10/19982007 HEP A - [...] Progress Notes * Lorene Dhaliwal LPN - 06/08/2022 12:18 PM EDT Pre-injection Questionnaire Patient identified by [...] Documents on File Type Date Recorded 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 Care Teams Band Singer Relationship Specialty Start Date End Date Gab Smith DO [address] [place] [address] PCP - General Family Medicine 11/14/18 documented as of this encounter
--- OUTSIDE RECORDS SUMMARY | 2023-04-16 16:05 | External Medical Summary | Summary of Care ---
Author Name Unknown Organization [place] [address] Care Team Providers Care Ocular Pathologist Name Role Phone Gab Smith DO Primary Care Provider [phone] Reason for Visit * Reason Onset Date Comments Medication Refill 06/18/2022 Encounter Details Date Type Department Care Team Description 06/18/2022 Refill Allergy/Immunology [facility] [address] [facility] [place] [address] Ramses Bryant MD [address] [facility] [place] [address] Mild intermittent asthma without complication Allergies Active Allergy Reactions Severity Noted Date Comments [place] (Diagnostic) Anaphylaxis High 05/21/2017 Banana Edema airway High 01/10/2017 Cat Dander Anaphylaxis High 05/21/2017 Corylus Anaphylaxis High 05/21/2017 Latex Rash Low 01/10/2017 Lac Bovis Other (Please comment) 01/16/2017 Mouth tenderness. Peanut (Diagnostic) Anaphylaxis High 05/21/2017 Prednisone Psych complications 01/17/2017 agitation Sesame Seed (Diagnostic) Anaphylaxis High 05/21/2017 Soy Allergy Anaphylaxis High 01/16/2017 [place] Oil Edema airway High 01/10/2017 Wasp Venom [...] SPRAY) 0.65 % nasal spray Administer 1 [place] into nostril as needed for Congestion. 0 Active loratadine ODT (CLARITIN REDITAB) 10 MG TBDP Take 1 tab daily for nasal allergy symptoms 0 09/04/2017 Active fluticasone (FLONASE) 50 MCG/ACT nasal spray Administer 2 Sprays into each nostril daily. Use as needed for worsening or persistent nasal allergy symptoms 1 Inhaler 5 06/23/2018 Active albuterol-ipratrop ium [...] or Wheezing. 18 g 2 06/18/2022 Active Albuterol Sulfate HFA 108 (90 Base) MCG/ACT Inhalation Aerosol SolutionIndication s:Mild intermittent asthma without complication Inhale 2 Puffs by mouth every 4 hours as needed for Cough, Shortness of Breath or Wheezing. 18 g 2 06/15/2021 2 Discontinue d(Refill) documented as of this encounter [...] mRNA, LNP-s, No Pre serve, 2-Dose Series ([employer]) 01/02/2021,12/12/2020 Diptheria/Tetanus (Adult) 02/10/19982007 HEP A - [...] encounter Miscellaneous Notes * Telephone Encounter - Ramses Bryant MD - 06/18/2022 4:29 PM EDT Signed Prescriptions: Disp Refills Albuterol Sulfate HFA 108 (90 Base) MCG/AC*18 g 2 Sig: Inhale by mouth 2 Puffs every 4 hours as needed for Cough, Shortness of Breath or Wheezing. Authorizing Provider: RAMSES BRYANT * Telephone Encounter - Lorene Dhaliwal LPN - 06/18/2022 4:08 PM EDT Pending Prescriptions: Disp Refills Albuterol Sulfate HFA 108 (90 Base) MCG/A*18 g 2 Sig: Inhale by mouth 2 Puffs every 4 hours as needed for Cough, Shortness of Breath or Wheezing. Last Visit: 03/26/2022 (in office), 08/22/2020 (telemedicine) Next Visit: Visit date not found Last date the medication was ordered: 06/15/21 Health Maintenance Topic Date Due Pneumococcal Vaccine: Pediatrics (0 to 5 Years) and At-Risk Patients (6 to 64 Years) (1 - PCV) Never done HIV Screening Never done Hepatitis B (3 of 3 - 3-dose primary series) 06/19/2000 Hepatitis C Screening Never done PAP SMEAR-EVERY 3 YRS,AGES 21-65 Never done DTaP,Tdap,and Td Vaccines (3 - Td or Tdap) 01/30/2019 Diabetes Screening 01/15/2020 Depression Screening, Annual for Pts 12 and Over 04/15/2020 COVID-19 Vaccine (3 - Booster for Pfizer series) 02/27/2021 Influenza Vaccine (FLU shot) (1) 04/19/2022 MENINGOCOCCAL (MENACTRA/MENVEO) Aged Out GARDASIL-HPV IMMUNIZATION SERIES Aged Out Labs: Lab Results Component Value Date/Time CREATININE - [facility] 0.7 10/10/2016 03:01 PM CREATININE, RANDOM URINE - [facility] 159 05/22/2016 03:03 PM CREATININE-OUTSIDE LAB 1.00 01/14/2017 12:00 AM Lab Results Component Value Date/Time POTASSIUM - [facility] 4.4 10/10/2016 03:01 PM POTASSIUM-OUTSIDE LAB 3.4 (A) 01/14/2017 12:00 AM Lab Results Component Value Date/Time TSH - [facility] 0.80 10/05/2016 01:47 PM TSH - OUTSIDE LAB 1.320 01/14/2017 12:00 AM No results found for: LDL Lab Results Component Value Date/Time ALT - [facility] 27 10/10/2016 03:01 PM ALT-OUTSIDE LAB 29 09/02/2016 12:00 AM Hemoglobin AIC Results: No results found for: HEMOGLOBIN A1C documented in this encounter Plan of Treatment [...] asthma documented in this encounter Advance Directives Documents on File Type Date Recorded Patient Information Services Assistant Expl 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 Care Teams Ocular Pathologist Relationship Specialty Start Date End Date Gab Smith DO [address] [place] [address] PCP - General Family Medicine 11/14/18 documented as of this encounter
--- OUTSIDE RECORDS SUMMARY | 2023-04-16 16:05 | External Medical Summary | Summary of Care ---
Author Name Unknown Organization [facility] Address [place] [address] Care Team Providers Care Small Business Banking Officer Name Role Phone Gab Smith Primary Care Provider [phone] Reason for Visit * Reason Onset Date Comments Allergy Injection 04/09/2022 Encounter Details Date Type Department Care Team Description 04/09/2022 Immunization/In jection Allergy/Immunology [facility] [place] [address] [place] [address] Betty Nurse Allergy Scenery [address] [place] [address] Allergic rhinitis, unspecified seasonality, unspecified trigger* Allergies Active Allergy Reactions Severity Noted Date Comments [place] (Diagnostic) Anaphylaxis High 05/21/2017 Banana Edema airway High 01/10/2017 Cat Dander Anaphylaxis High 05/21/2017 Corylus Anaphylaxis High 05/21/2017 Latex Rash Low 01/10/2017 Lac Bovis Other (Please comment) 01/16/2017 Mouth tenderness. Peanut (Diagnostic) Anaphylaxis High 05/21/2017 Prednisone Psych complications 01/17/2017 agitation Sesame Seed (Diagnostic) Anaphylaxis High 05/21/2017 Soy Allergy Anaphylaxis High 01/16/2017 [place] Oil Edema airway High 01/10/2017 Wasp Venom Edema airway High 01/10/2017 documented as of this encounter (statuses as of 04/09/2022) Medications Medication Sig Dispensed Refills Start Date [...] SPRAY) 0.65 % nasal spray Administer 1 [place] into nostril as needed for Congestion. 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 Encounter for supervision of other normal pregna ncy 03/13/2011 09/11/2016 Overview: ICD-10 update of inactive term Acute bronchitis, complicated 02/25/2010 Asthma with severity to be determined 02/13/2017 Overview: ICD-10 update of inactive term documented as of this encounter (statuses as of 04/09/2022) Immunizations Name Administration Dates Next Due COVID-19 mRNA, LNP-s, No Pre serve, 2-Dose Series ([place]) 01/02/2021,12/12/2020 Diptheria/Tetanus (Adult) 02/10/19982007 HEP A - [...] Progress Notes * Bhavana Saleh LPN - 04/09/2022 12:54 PM EDT Pre-injection Questionnaire Patient identified by [...] Vaccine (3 - Booster for Pfizer series) 06/04/2021 01/02/2021, 12/12/2020 Influenza Vaccine (FLU shot) (#1) [...] Documents on File Type Date Recorded 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 Care Teams Small Business Banking Officer Relationship Specialty Start Date End Date Gab Smith DO [address] [place] [address] PCP - General Family Medicine 11/14/18 documented as of this encounter
--- OUTSIDE RECORDS SUMMARY | 2023-04-16 16:05 | External Medical Summary | Summary of Care ---
Author Name Unknown Organization [place] [address] Care Team Providers Care Credit Administration Manager Name Role Phone Gab Smith DO Primary Care Provider Reason for Visit * Reason Onset Date Comments Advice 05/28/2022 Encounter Details Date Type Department Care Team Description 05/28/2022 Telephone Allergy/Immunology [facility] [address] [place], [place] [id number] Services, Scheduling [address] [place] [address] Advice Allergies Active Allergy Reactions Severity Noted Date Comments [place] (Diagnostic) Anaphylaxis High 05/21/2017 Banana Edema airway High 01/10/2017 Cat Dander Anaphylaxis High 05/21/2017 Corylus Anaphylaxis High 05/21/2017 Latex Rash Low 01/10/2017 Lac Bovis Other (Please comment) 01/16/2017 Mouth tenderness. Peanut (Diagnostic) Anaphylaxis High 05/21/2017 Prednisone Psych complications 01/17/2017 agitation Sesame Seed (Diagnostic) Anaphylaxis High 05/21/2017 Soy Allergy Anaphylaxis High 01/16/2017 [place] Oil Edema airway High 01/10/2017 Wasp Venom Edema airway High 01/10/2017 documented as of this encounter (statuses as of 05/28/2022) Medications Medication Sig Dispensed Refills Start Date [...] SPRAY) 0.65 % nasal spray Administer 1 [place] into nostril as needed for Congestion. 0 [...] Active Olopatadine HCl 0.2 % Ophthalmic Solution ([place]) Use 1 drop in each eye daily as needed for allergic eye symptoms. 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 Encounter for supervision of other normal pregna ncy 03/13/2011 09/11/2016 Overview: ICD-10 update of inactive term Acute bronchitis, complicated 02/25/2010 Asthma with severity to be determined 02/13/2017 Overview: ICD-10 update of inactive term documented as of this encounter (statuses as of 05/28/2022) Immunizations Name Administration Dates Next Due COVID-19 mRNA, LNP-s, No Pre serve, 2-Dose Series ([employer]) 01/02/2021,12/12/2020 Diptheria/Tetanus (Adult) 02/10/19982007 HEP A - [...] encounter Miscellaneous Notes * Telephone Encounter - Bhavana Saleh LPN - 05/28/2022 5:58 PM EDT Pt is aware will adjust dosing Upon arrival Will discuss with MD if greater than 4 weeks late Pt will call prior to coming to make sure [facility] running due to staffing Pt verbalizes understanding * Telephone Encounter - SUSAN Calderon - 05/28/2022 12:36 PM EDT Basilio, Pt would like a call back to talk about getting back on the schedule for her allergy shots. She hasbeen sick and has missed a few. Will someone please call the patient? 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 Care Teams Credit Administration Manager Relationship Specialty Start Date End Date Gab Smith DO [address] [facility] [place] [address] PCP - General Family Medicine 11/14/18 documented as of this encounter
--- OUTSIDE RECORDS SUMMARY | 2023-04-16 16:05 | External Medical Summary | Summary of Care ---
Author Name Unknown Organization [place] [address] Care Team Providers Care Special Distribution Clerk Name Role Phone Gab Smith Primary Care Provider Reason for Visit * Reason Onset Date Comments Allergy Injection 06/01/2022 Encounter Details Date Type Department Care Team Description 06/01/2022 Immunization/In jection Allergy/Immunology [facility] [place] [address] [place] [address] Betty Nurse Allergy Scenery [address] [place] [address] Allergic rhinitis, unspecified seasonality, unspecified trigger* Allergies Active Allergy Reactions Severity Noted Date Comments [place] (Diagnostic) Anaphylaxis High 05/21/2017 Banana Edema airway High 01/10/2017 Cat Dander Anaphylaxis High 05/21/2017 Corylus Anaphylaxis High 05/21/2017 Latex Rash Low 01/10/2017 Lac Bovis Other (Please comment) 01/16/2017 Mouth tenderness. Peanut (Diagnostic) Anaphylaxis High 05/21/2017 Prednisone Psych complications 01/17/2017 agitation Sesame Seed (Diagnostic) Anaphylaxis High 05/21/2017 Soy Allergy Anaphylaxis High 01/16/2017 [place] Oil Edema airway High 01/10/2017 Wasp Venom Edema airway High 01/10/2017 documented as of this encounter (statuses as of 06/01/2022) Medications Medication Sig Dispensed Refills Start Date [...] SPRAY) 0.65 % nasal spray Administer 1 [place] into nostril as needed for Congestion. 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 Encounter for supervision of other normal pregna ncy 03/13/2011 09/11/2016 Overview: ICD-10 update of inactive term Acute bronchitis, complicated 02/25/2010 Asthma with severity to be determined 02/13/2017 Overview: ICD-10 update of inactive term documented as of this encounter (statuses as of 06/01/2022) Immunizations Name Administration Dates Next Due COVID-19 mRNA, LNP-s, No Pre serve, 2-Dose Series ([employer]) 01/02/2021,12/12/2020 Diptheria/Tetanus (Adult) 02/10/19982007 HEP A - [...] Progress Notes * Joann Goodrich LPN - 06/01/2022 12:01 PM EDT Pre-injection Questionnaire Patient identified by [...] Documents on File Type Date Recorded 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 Care Teams Special Distribution Clerk Relationship Specialty Start Date End Date Gab Smith DO [address] [facility] [place] [address] PCP - General Family Medicine 11/14/18 documented as of this encounter
--- OUTSIDE RECORDS SUMMARY | 2023-04-16 16:05 | External Medical Summary | Summary of Care ---
Author Name Unknown Organization [place] [address] Care Team Providers Care Retail Support Associate Name Role Phone Gab Smith DO Primary Care Provider [phone] Encounter Details Date Type Department Care Team Description 05/28/2022 Telephone Allergy/Immunology [facility] [place] [address] [facility] [place] [id number] Services, Scheduling [address] [place] [address] Allergies Active Allergy Reactions Severity Noted Date Comments [place] (Diagnostic) Anaphylaxis High 05/21/2017 Banana Edema airway High 01/10/2017 Cat Dander Anaphylaxis High 05/21/2017 Corylus Anaphylaxis High 05/21/2017 Latex Rash Low 01/10/2017 Lac Bovis Other (Please comment) 01/16/2017 Mouth tenderness. Peanut (Diagnostic) Anaphylaxis High 05/21/2017 Prednisone Psych complications 01/17/2017 agitation Sesame Seed (Diagnostic) Anaphylaxis High 05/21/2017 Soy Allergy Anaphylaxis High 01/16/2017 [place] Oil Edema airway High 01/10/2017 Wasp Venom [...] SPRAY) 0.65 % nasal spray Administer 1 [place] into nostril as needed for Congestion. 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 Care Teams Retail Support Associate Relationship Specialty Start Date End Date Gab Smith DO [address] [place] [address] [place] [address] PCP - General Family Medicine 11/14/18 documented as of this encounter
--- OUTSIDE RECORDS SUMMARY | 2023-04-16 16:05 | External Medical Summary | Summary of Care ---
Author Name Unknown Organization [facility] [place] [address] Care Team Providers Care Computer Security Manager Name Role Phone aGb Smith DO Primary Care Provider [phone] Reason for Visit * Reason Onset Date Comments Med Request 04/25/2022 Encounter Details Date Type Department Care Team Description 04/25/2022 Telephone Family Practice [facility] [address] [place] [facility] [address] Gab Smith DO [address] [facility] [place] [address] Med Request Allergies Active Allergy Reactions Severity Noted Date Comments [place] (Diagnostic) Anaphylaxis High 05/21/2017 Banana Edema airway High 01/10/2017 Cat Dander Anaphylaxis High 05/21/2017 Corylus Anaphylaxis High 05/21/2017 Latex Rash Low 01/10/2017 Lac Bovis Other (Please comment) 01/16/2017 Mouth tenderness. Peanut (Diagnostic) Anaphylaxis High 05/21/2017 Prednisone Psych complications 01/17/2017 agitation Sesame Seed (Diagnostic) Anaphylaxis High 05/21/2017 Soy Allergy Anaphylaxis High 01/16/2017 [place] Oil Edema airway High 01/10/2017 Wasp Venom Edema airway High 01/10/2017 documented as of this encounter (statuses as of 04/26/2022) Medications Medication Sig Dispensed Refills Start Date End Date Status Cranberry 250 MG CAPSIndications:rashid ing 500mg a day Take 1 Tab by mouth 2 times a day. Indications: taking 500mg a day 0 Active diphenhydrAMINE (BENADRYL) 25 MG Capsule Take 2 capsules at onset suspected allergic reaction; may repeat every 4-6 hrs. as needed. 40 Cap 1 02/13/2017 Active saline ([place] NASAL SPRAY) 0.65 % nasal spray Administer 1 [place] into nostril as needed for Congestion. 0 Active loratadine ODT (CLARITIN REDITAB) 10 MG TBDP Take 1 tab daily for nasal allergy symptoms 0 09/04/2017 Active fluticasone (FLONASE) 50 MCG/ACT nasal spray Administer 2 Sprays into each nostril daily. Use as needed for worsening or persistent nasal allergy symptoms 1 Inhaler 5 06/23/2018 Active albuterol-ipratropi um (DUONEB) 2.5-0.5 MG/3ML nebulizer solution Inhale 3 [...] HFA 108 (90 Base) MCG/ACT Inhalation Aerosol SolutionIndications :Mild intermittent asthma without complication Inhale 2 Puffs by mouth every 4 hours as needed for Cough, Shortness of Breath or Wheezing. 18 g 2 06/15/2021 Active EPINEPHrine 0.3 MG/0.3ML Injection Solution Auto-injector (Autoinjector)Indic ations:Allergic reaction, subsequent encounter for severe reaction: place orange end against the outer thigh, press firmly and hold for 10 seconds and go to the emergency room. 2 Each 3 02/12/2022 Active Olopatadine HCl 0.2 % Ophthalmic Solution ([place]) Use 1 drop in each eye daily as needed for allergic eye symptoms. 5 mL 12 03/26/2022 Active Amoxicillin-Pot Clavulanate 875-125 MG Oral TabletIndications:N on-recurrent acute suppurative otitis media with spontaneous rupture of tympanic membrane, unspecified laterality,Acute recurrent sinusitis, unspecified location Take by mouth 1 Tablet in the morning AND 1 Tablet before bedtime. Do all this for 10 days. 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 Prescription Augmentin 875 mg 1 tab twice daily times 10 days sent to pharmacy for treatment of sinusitis and otitis media. Patient advised continued supportive care, Tylenol OTC as directed p.r.n. pain or fever, Mucinex OTC as directed p.r.n. cough congestion. Patient advised to call or return to office if symptoms persist or worsen * Telephone Encounter - SUSAN Mendez - 04/25/2022 12:05 PM EDT Patient is having pain in ears and cough, sinus pressure,mucus is green. No acute appointments available. Patient would like to speak with her primary- Dr Smith about getting antibiotics sent to pharmacy on file. patient tested separate days --negative patient has been using nebulizer to be able to breathe clearly.She needs a script sent to pharmacy also for albuterol solution. 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 Care Teams Computer Security Manager Relationship Specialty Start Date End Date Gab Smith DO [address] [facility] [place] [address] PCP - General Family Medicine 11/14/18 documented as of this encounter
--- OUTSIDE RECORDS SUMMARY | 2023-04-16 16:06 | External Medical Summary | Summary of Care ---
Author Name Unknown Organization [place] [address] Care Team Providers Care Manager Web Name Role Phone Gab Smith DO Primary Care Provider Reason for Visit * Reason Comments Allergy Return Encounter Details Date Type Department Care Team Description 03/26/2022 Office Visit Allergy/Immunology [facility] [address] [place] [address] Valeriy Milton MD [address] [place] [address] Chronic seasonal allergic rhinitis due to pollen*; Allergic rhinitis due to dust; Intermittent asthma with reliever use up to twice per week without complication; Adverse food reaction, subsequent encounter; Peanut allergy; History of insect sting allergy Allergies Active Allergy Reactions Severity Noted Date Comments [place] (Diagnostic) Anaphylaxis High 05/21/2017 Banana Edema airway High 01/10/2017 Cat Dander Anaphylaxis High 05/21/2017 Corylus Anaphylaxis High 05/21/2017 Latex Rash Low 01/10/2017 Lac Bovis Other (Please comment) 01/16/2017 Mouth tenderness. Peanut (Diagnostic) Anaphylaxis High 05/21/2017 Prednisone Psych complications 01/17/2017 agitation Sesame Seed (Diagnostic) Anaphylaxis High 05/21/2017 Soy Allergy Anaphylaxis High 01/16/2017 Mccook Oil Edema airway High 01/10/2017 Wasp Venom Edema airway High 01/10/2017 documented as of this encounter (statuses as of 03/27/2022) Medications Medication Sig Dispensed Refills Start Date [...] SPRAY) 0.65 % nasal spray Administer 1 [place] into nostril as needed for Congestion. 0 [...] eye symptoms. 5 mL 12 03/26/2022 Active cromolyn sodium (CROLOM) 4 % ophthalmic solution Instill 1 Drop into both eyes 4 times a day as needed for Allergies. 10 mL 12 12/23/2017 2 Discontinue d(End of Procedure) documented as of this encounter (statuses as of 03/27/2022) Active Problems Problem Noted Date Anxiety 03/28/2017 [...] as of this encounter (statuses as of 03/27/2022) Resolved Problems Problem Noted Date Resolved Date Reaction to allergy injection 05/19/2019 Pollen-food allergy syndrome 03/28/201708/2018 Encounter for supervision of other normal pregna ncy 03/13/2011 09/11/2016 Overview: ICD-10 update of inactive term Acute bronchitis, complicated 02/25/2010 Asthma with severity to be determined 02/13/2017 Overview: ICD-10 update of inactive term documented as of this encounter (statuses as of 03/27/2022) Immunizations Name Administration Dates Next Due COVID-19 mRNA, LNP-s, No Pre serve, 2-Dose Series (nap- Naturally Attached Parents) 01/02/2021,12/12/2020 Diptheria/Tetanus (Adult) 02/10/19982007 HEP A - [...] Sign Reading Time Taken Comments Blood Pressure 110/60 03/26/2022 4:13 PM EDT Pulse 80 03/26/2022 4:13 PM EDT Temperature 36.8 C (98.2 F) 03/26/2022 4:13 PM ED T Respiratory Rate 16 03/26/2022 4:13 PM EDT Oxygen Saturation - - Inhaled Oxygen Concentration - - Weight 98 kg (216 lb) 03/26/2022 4:13 PM EDT Height - - Body Mass Index 35.67 08/04/2021 11:13 AM EST documented in this encounter Progress Notes * Valeriy Milton MD - 03/26/2022 4:47 PM EDT SUBJECTIVE: Regina was evaluated for follow-up of her allergic rhinitis, intermittent asthma and food allergies. She has been doing well since her last visit. She does feel that her allergy immunotherapy injections have been successful in making her less sensitive to seasonal pollens. Did not have significant increase in seasonal nasal or eye symptoms this year. No major asthma exacerbations. Continues Claritin regularly Flonase in the spring and fall pollen seasons. Albuterol just when needed, she is not on regular Singulair. No emergency room visits or hospitalizations have been required. Tolerating herallergy immunotherapy injections without major large local or systemic reactions. She had had some itchy palms after her injections last summer so we are holding her at a lower maintenance dose which she is tolerating.. Continues to avoid almond, sunflower/sesame seeds and peanut. She also avoids Mandarin orange basedon pollen/food allergy syndrome. Her initial reaction was mouth itching with clementines. Even the smell of oranges or maria c gives her a headache her makes her feel sick. She has also been avoiding soy in milk because of some reported mouth itching. Milk and soy were negative when most recently tested. She did tolerate these foods in the past. She would be interested in reintroducing milk into her diet and the possibility of a milk oral supervised food challenge discussed with her. She does have emergency Benadryl and EpiPen available for accidental ingestions of her other foods in the interval. She has not had any recent stings. She is keeping up with activities with her children, camping twice this summer and doing a lot of outdoor activities without major some increase in symptoms. She has not been having problems with recurrent sinus or ear infections in the interval. Asthma control test 03/26/22 revealed a score of 24, consistent with well- controlled asthma. Asthma control test obtained on March 16, 2021 revealed a score of 24 which suggest well controlled asthma. Asthma control test obtained on October 21, 2020 revealed a score of 23 which suggest well controlled asthma. Asthma control test 08/22/20 revealed a value of 22, well controlled asthma. Asthma Control Test Summary, Results are Patient Reported The overall score is: 24 suggesting: Well Controlled asthma for the survey taken on: 03/01/2020 3:33:34 PM. Asthma Control Test Summary, Results are Patient Reported The overall score is: 22 suggesting: Well Controlled asthma for the survey taken on: 02/08/2020 5:37:22 PM. Immunotherapy: Started: 08/04/18 - 10/09/2019, 03/17/2020- present Benefit? YES Reactions? 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 Indications: taking 500mg a day diphenhydrAMINE (BENADRYL) 25 MG Capsule Take 2 capsules at onset suspected allergic reaction; may repeat every 4-6 hrs. as needed. 40 Cap 1 saline (OCEAN NASAL SPRAY) 0.65 % nasal spray Administer 1 [place] into nostril as needed for Congestion. loratadine ODT (CLARITIN REDITAB) 10 MG TBDP Take 1 tab daily for nasal allergy symptoms cromolyn sodium (CROLOM) 4 % ophthalmic solution Instill 1 Drop into both eyes 4 times a day asneeded for Allergies. 10 mL 12 fluticasone (FLONASE) 50 MCG/ACT nasal spray Administer 2 Sprays into each nostril daily. Use as needed for worsening or persistent nasal allergy symptoms 1 Inhaler 5 albuterol-ipratropium (DUONEB) 2.5-0.5 MG/3ML nebulizer solution Inhale 3 mL by mouth every 6 hours as needed (wheezing). 60 Vial 5 famotidine (PEPCID) 20 MG Tablet Take 1 Tab by mouth 2 times a day as needed for Heartburn (or increased allergy symtpoms). Multi-Vitamin Gummies Oral Tablet Chewable Take 1 Tab by mouth daily. Albuterol Sulfate HFA 108 (90 Base) MCG/ACT Inhalation Aerosol Solution Inhale 2 Puffs by mouthevery 4 hours as needed for Cough, Shortness of Breath or Wheezing. 18 g 2 EPINEPHrine 0.3 MG/0.3ML Injection Solution Auto-injector (Autoinjector) for severe reaction: place orange end against the outer thigh, press firmly and hold for 10 seconds and go to the emergency room. 2 Each 3 No current facility-administered medications for this visit. Review of patient's allergies indicates: Allergen Reactions [place] (Diagnostic) Anaphylaxis Banana Edema airway Cat Dander Anaphylaxis [place] Tree Pollen [Corylus] Anaphylaxis Peanut (Diagnostic) Anaphylaxis Sesame Seed (Diagnostic) Anaphylaxis Soy Allergy Anaphylaxis Mccook Oil Edema airway Wasp Venom Edema airway Milk [Lac Bovis] Other (Please comment) Mouth tenderness. Prednisone Psych complications agitation Latex Rash Family History Problem Relation Age of Onset Heart Disorder Father Endocrine Disorder Father high cholesterol Heart Disorder Grandmother (Paternal) Heart Disorder Grandfather (Paternal) Allergies Son tree nut allergy Allergies Daughter food allergy - strawberry Social History Main Topics Smoking status: Never Smoker/No passive smoke exposures. Smokeless tobacco: Never Used Alcohol use No Social History Narrative Environment/Occupation/Activities of Daily Living: She lives in a 1 story house. There is oil baseboard hot water heat with air conditioner in the living room. Basement is finished and dry with dehumidifier. No indoor pets. Bedroom is 1st floor and heart hardwood. 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 BP 110/60 | Pulse 80 | Temp 36.8 C (98.2 F) | Resp 16 | Wt 98 kg (216 lb) | BMI 35.67 kg/m | BSA 2.12 m PHYSICAL EXAM: No Acute Distress: Conjunctiva: Normal TM's: Clear Nose:Pale mucosa; mild inferior turbinate edema, no polyps, no mucopus Oropharynx: Mild erythema and cobblestoning, no lesions or exudates. Neck: No significant adenopathy Lungs: Clear to A&P, no wheezes; Good air movement bilaterally. Cor: RRR, no murmur Skin: No lesions atopic dermatitis; no urticaria, angioedema OBJECTIVE DATA: Component Latest Ref Rng & Units 03/13/2021 Peanut IgE <0.35 kU/L 0.23 [place] Nut IgE <0.35 kU/L 0.61 (Class 1) [place] Nut IgE <0.35 kU/L <0.20 [place] IgE <0.35 kU/L 0.59 (Class 1) Pecan Nut IgE <0.35 kU/L <0.20 Cashew Nut IgE <0.35 kU/L <0.20 Sesame Seed IgE <0.35 kU/L 0.36 (Class 1) Mccook Seed IgE <0.35 kU/L 0.28 [place] Nut IgE <0.35 kU/L <0.20 ANTHONY H 2 (F423) <0.10 kU/L <0.10 ANTHONY H 1 (F422) <0.10 kU/L <0.10 ANTHONY H 3 (F424) <0.10 kU/L <0.10 ANTHONY H 9 (F427) <0.10 kU/L <0.10 ANTHONY H 8 (F352) <0.10 kU/L 3.13 (H) IgE 0.0 - 87.0 kU/L 96.9 (H) Milk IgE <0.35 kU/L <0.20 Soybean IgE <0.35 kU/L <0.20 Birch IgE <0.35 kU/L 31.00 (Class 4) Cornucopia IgE <0.35 kU/L 1.00 (Class 2) Component Latest Ref Rng & Units 02/13/2017 IGE 0 - 87 kU/L 77.5 TRYPTASE <11 ng/mL 4 MILK <0.1 kU/L 0.27 (H) EGG WHITE <0.1 kU/L <0.10 PISTACHIO <0.1 kU/L <0.10 SOYBEAN <0.1 kU/L 0.25 (H) PEANUT <0.1 kU/L 0.22 (H) LA NENA NUT <0.1 kU/L 0.67 (H) BRAZIL NUT <0.1 kU/L <0.10 ALMOND <0.1 kU/L 0.90 (H) PECAN NUT <0.1 kU/L 0.26 (H) CASHEW NUT <0.1 kU/L <0.10 SESAME SEED <0.1 kU/L 0.31 (H) SUNFLOWER <0.1 kU/L 0.37 (H) WALNUT NUT <0.1 kU/L 0.11 (H) Allergy skin testing 02/13/17 revealed significant positive reactions to tree, grass, ragweed and mixed weed pollens, molds Alternaria and Hormodendrum, dust mites, cat and dog. Significant food reactions noted to almond (16 mm wheal), sunflower seeds and peanut (6 mm wheal), soybean (8 mm wheal). Borderline positive reactions to milk and egg (5 mm wheals), sesame and walnut (4 mm wheals), . Cashew and banana were negative. Spirometry 02/13/17 revealed minimally reduced FEV1/FVC ratio of 82%, but above lower limits of normal. FEV1 3.34 L, 103% of predicted. Findings are consistent with essentially normal spirometry. ASSESSMENT: ICD-10-CM 1. Chronic seasonal allergic rhinitis due to pollen J30.1 2. Allergic rhinitis due to dust J30.89 3. Intermittent asthma with reliever use up to twice per week without complication J45.20 4. Adverse food reaction, subsequent encounter T78.1XXD 5. Peanut allergy Z91.010 6. History of insect sting allergy Z91.038 PLAN: Avoidance measures regarding pollens, molds, dust mites and animal danders should be continued. She started immunotherapy in 2017 but it was interrupted by the COVID pandemic. She resumed injections in February of 2020 and was almost at the maintenance dose. Then in February of 2021 she complained of palm itching after her allergy injections so we reduced her maintenance dose slightly. After this sheis tolerating her injections. hese have been beneficial reducing her symptoms. She has a history of significant allergic reaction mid January 2020 consisting of posterior pharyngealitching and swelling for the most part as well as some chest tightness. She did not have generalized hives. She did respond to antihistamine therapy with frequent Benadryl, oral Claritin and Pepcid. She never did have to use her EpiPen or take the Medrol given to her by her primary physician. She has not had major recurrence since. Unclear as to exact etiology but since she is allergic to spring pollens and she was doing significant outdoor activity all that week and especially the day prior tothe reaction most likely this was pollen related symptoms. For her allergic rhinitis and suspected allergic reaction she will continue Claritin 10 mg daily. If she has worsening nasal symptoms she will add in Flonase as needed especially during peak pollen seasons. Lbmn-kqn-klhhury Pataday eyedrops can be used as needed for allergic eye symptoms. In case of acute symptoms she will always add in Benadryl 50 mg immediately in every 4-6 hours as needed. If she were to go on to life-threatening throat tightness, difficulty swallowing, shortness of breath she should use her EpiPen and go to the emergency room. She does have an anaphylaxis action plan regarding this protocol. Her asthma remains intermittent. She will continue albuterol 2 puffs every 4 hours as needed. If worsening or more persistent asthma symptoms noted, she will notify this office for Singulair or inhaled corticosteroid anti-inflammatory preventative therapy. She continues avoidance of foods; almond, sunflower/sesame seeds, peanut. Recently she was concerned about throat itching with Mandarin oranges, milk and soy. Serum IgE determinations to these were just borderline positive or negative. Most likely the reaction to the orange is due to the pollen food allergy syndrome. She will continue to avoid fresh oranges and citrus fruit. She has been somewhatanxious to reintroduce milk and soy into her diet even though most recent serum IgE determinations were negative. For this reason I have recommended they be done as an oral supervised food challenge in the allergy office so any subjective complaints can objectively be monitored for signs of true allergy versus anxiety. She will continue to avoid them and use emergency Benadryl/Epipen protocol in case of accidental ingestion. There is a remote history in childhood of reaction to insect stings. Once her other problems are better controlled, venom skin or serum testing recommended to see if there is still current significant IgE mediated venom sensitivity remaining. At the present time she will avoid insect stings and if stung follow the same Benadryl/EpiPen protocol that she uses for her food allergies. Follow-up: Return in about 1 year (around 03/26/2023), or if symptoms worsen or fail to improve. | Check-out note: Schedule for oral supervised milk challenge over the next 3-4 months. I spent a total of 30-39 minutes (exact time 36 mins) on the date of service in preparation, delivery, and documentation of the care provided to Regina Duncan excluding any time spent in the performance of separately billed services. Valeriy Milton MD Allergy and Immunology [facility] (This note was completed using the dictation program Fluency Direct. As such, there may be misspellings, word substitutions, or other variations that should not change the essence of the clinical content of this encounter note.If there is need for further clarification, please direct questions to the provider listed above.) documented in this encounter Nursing Notes * Lorene Dhaliwal LPN - 03/26/2022 4:13 PM EDT The pt has been properly identified by confirmation of name and date of . 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 Care Teams Manager Web Relationship Specialty Start Date End Date Gab Smith DO [address] [place] [address] [place] [phone] PCP - General Family Medicine 11/14/18 documented as of this encounter"
--- OUTSIDE RECORDS SUMMARY | 2023-04-16 16:06 | External Medical Summary | Summary of Care ---
Author Name Unknown Organization [facility] [place] [address] Care Team Providers Care Container Maker Name Role Phone Gab Smith Primary Care Provider Reason for Visit * Reason Onset Date Comments Allergy Injection 02/16/2022 Encounter Details Date Type Department Care Team Description 02/16/2022 Immunization[facility] [place] [address] [place] [address] Betty Nurse [facility] [address] [place] [address] Allergic rhinitis, unspecified seasonality, unspecified trigger* Allergies Active Allergy Reactions Severity Noted Date Comments [place] (Diagnostic) Anaphylaxis High 05/21/2017 Banana Edema airway High 01/10/2017 Cat Dander Anaphylaxis High 05/21/2017 Corylus Anaphylaxis High 05/21/2017 Latex Rash Low 01/10/2017 Lac Bovis Other (Please comment) 01/16/2017 Mouth tenderness. Peanut (Diagnostic) Anaphylaxis High 05/21/2017 Prednisone Psych complications 01/17/2017 agitation Sesame Seed (Diagnostic) Anaphylaxis High 05/21/2017 Soy Allergy Anaphylaxis High 01/16/2017 [place] Oil Edema airway High 01/10/2017 Wasp Venom Edema airway High 01/10/2017 documented as of this encounter (statuses as of 02/16/2022) Medications Medication Sig Dispensed Refills Start Date [...] SPRAY) 0.65 % nasal spray Administer 1 [place] into nostril as needed for Congestion. 0 Active loratadine ODT (CLARITIN REDITAB) 10 MG TBDP Take 1 tab daily for nasal allergy symptoms 0 09/04/2017 Active cromolyn sodium (CROLOM) 4 % ophthalmic solution Instill 1 Drop into both eyes 4 times a day as needed for Allergies. 10 mL 12 12/23/2017 Active fluticasone (FLONASE) 50 MCG/ACT nasal spray [...] emergency room. 2 Each 3 02/12/2022 Active documented as of this encounter (statuses as of 02/16/2022) Active Problems Problem Noted Date Anxiety 03/28/2017 [...] as of this encounter (statuses as of 02/16/2022) Resolved Problems Problem Noted Date Resolved Date Reaction to allergy injection 05/19/2019 Pollen-food allergy syndrome 03/28/201708/2018 Encounter for supervision of other normal pregna ncy 03/13/2011 09/11/2016 Overview: ICD-10 update of inactive term Acute bronchitis, complicated 02/25/2010 Asthma with severity to be determined 02/13/2017 Overview: ICD-10 update of inactive term documented as of this encounter (statuses as of 02/16/2022) Immunizations Name Administration Dates Next Due COVID-19 mRNA, LNP-s, No Pre serve, 2-Dose Series (ICONIC) 01/02/2021,12/12/2020 Diptheria/Tetanus (Adult) 02/10/19982007 HEP A - [...] Progress Notes * Lorene Dhaliwal LPN - 02/16/2022 12:30 PM EDT Pre-injection Questionnaire Patient identified by [...] documented in this encounter Plan of Treatment Upcoming Encounters Date Type Specialty Care Team Description 03/26/2022 Office Visit Allergy & Immunology Valeriy Milton MD [address] [place] [address] Health Maintenance Due Date Last Done Comments Pneumococcal Vaccine: Pediatrics (0 to 5 Years) and At-Risk Patients (6 to 64 Years) (1 - PCV) 1989 PAP SMEAR-EVERY 3 YRS,AGES 21-65 2004 DTaP,Tdap,and Td Vaccines (3 - Td or Tdap) 01/30/2019 01/30/2009, 02/10/1998 Depression Screening, Annual for Pts 12 and Over 04/15/2020 04/15/2019 COVID-19 Vaccine (3 - Booste r for Pfizer series) 06/04/2021 01/02/2021, 12/12/2020 Influenza Vaccine (FLU shot) (#1) 2022 05/12/2021, 04/21/2020 GARDASIL-HPV IMMUNIZATION SERIES Aged Out No longer eligible b ased on patient's age to complete this topic MENINGOCOCCAL (MENACTRA/MENVEO) Aged Out No longer eligible b ased on patient's age to complete this topic documented as of this encounter Implants Not on filedocumented as of this encounter Visit Diagnoses Diagnosis Allergic rhinitis, unspecified seasonality, unspecified trigger- Primary documented in this encounter Advance Directives Documents on File Type Date Recorded 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 Care Teams Container Maker Relationship Specialty Start Date End Date Gab Smith DO [address] [facility] [place] [phone] PCP - General Family Medicine 11/14/18 documented as of this encounter
--- OUTSIDE RECORDS SUMMARY | 2023-04-16 16:06 | External Medical Summary | Summary of Care ---
Author Name Unknown Organization [facility] Address [place] [address] Care Team Providers Care Assistant Operator Name Role Phone Gab Smith Primary Care Provider [phone] Reason for Visit * Reason Onset Date Comments Allergy Injection 03/23/2022 Encounter Details Date Type Department Care Team Description 03/23/2022 Immunization/In jection Allergy/Immunology [facility] [place] [address] [place] [address] Betty Nurse Allergy Scenery [address] [place] [address] Allergic rhinitis, unspecified seasonality, unspecified trigger* Allergies Active Allergy Reactions Severity Noted Date Comments [place] (Diagnostic) Anaphylaxis High 05/21/2017 Banana Edema airway High 01/10/2017 Cat Dander Anaphylaxis High 05/21/2017 Corylus Anaphylaxis High 05/21/2017 Latex Rash Low 01/10/2017 Lac Bovis Other (Please comment) 01/16/2017 Mouth tenderness. Peanut (Diagnostic) Anaphylaxis High 05/21/2017 Prednisone Psych complications 01/17/2017 agitation Sesame Seed (Diagnostic) Anaphylaxis High 05/21/2017 Soy Allergy Anaphylaxis High 01/16/2017 [place] Oil Edema airway High 01/10/2017 Wasp Venom Edema airway High 01/10/2017 documented as of this encounter (statuses as of 03/23/2022) Medications Medication Sig Dispensed Refills Start Date [...] SPRAY) 0.65 % nasal spray Administer 1 [place] into nostril as needed for Congestion. 0 [...] as of this encounter (statuses as of 03/23/2022) Active Problems Problem Noted Date Anxiety 03/28/2017 [...] as of this encounter (statuses as of 03/23/2022) Resolved Problems Problem Noted Date Resolved Date Reaction to allergy injection 05/19/2019 Pollen-food allergy syndrome 03/28/201708/2018 Encounter for supervision of other normal pregna ncy 03/13/2011 09/11/2016 Overview: ICD-10 update of inactive term Acute bronchitis, complicated 02/25/2010 Asthma with severity to be determined 02/13/2017 Overview: ICD-10 update of inactive term documented as of this encounter (statuses as of 03/23/2022) Immunizations Name Administration Dates Next Due COVID-19 mRNA, LNP-s, No Pre serve, 2-Dose Series (Exo) 01/02/2021,12/12/2020 Diptheria/Tetanus (Adult) 02/10/19982007 HEP A - [...] Progress Notes * Bhavana Saleh LPN - 03/23/2022 12:37 PM EDT Pre-injection Questionnaire Patient identified by [...] Visit Allergy & Immunology Valeriy Milton MD [address] [place] [id number] Health Maintenance Due Date Last Done Comments [...] on File Type Date Recorded 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 Care Teams Assistant Operator Relationship Specialty Start Date End Date Gab Smith DO [address] [place] [phone] PCP - General Family Medicine 11/14/18 documented as of this encounter
--- OUTSIDE RECORDS SUMMARY | 2023-04-16 16:06 | External Medical Summary | Summary of Care ---
Author Name Unknown Organization [place] [address] Care Team Providers Care Cotton Farmer Name Role Phone Gab Smith Primary Care Provider [phone] Reason for Visit * Reason Onset Date Comments Allergy Injection 03/06/2022 Encounter Details Date Type Department Care Team Description 03/06/2022 Immunization/In jection Allergy/Immunology [facility] [place] [address] [place] [address] Betty Nurse Allergy Scenery [address] [place] [address] Allergic rhinitis, unspecified seasonality, unspecified trigger* Allergies Active Allergy Reactions Severity Noted Date Comments [place] (Diagnostic) Anaphylaxis High 05/21/2017 Banana Edema airway High 01/10/2017 Cat Dander Anaphylaxis High 05/21/2017 Corylus Anaphylaxis High 05/21/2017 Latex Rash Low 01/10/2017 Lac Bovis Other (Please comment) 01/16/2017 Mouth tenderness. Peanut (Diagnostic) Anaphylaxis High 05/21/2017 Prednisone Psych complications 01/17/2017 agitation Sesame Seed (Diagnostic) Anaphylaxis High 05/21/2017 Soy Allergy Anaphylaxis High 01/16/2017 [place] Oil Edema airway High 01/10/2017 Wasp Venom Edema airway High 01/10/2017 documented as of this encounter (statuses as of 03/06/2022) Medications Medication Sig Dispensed Refills Start Date [...] SPRAY) 0.65 % nasal spray Administer 1 [place] into nostril as needed for Congestion. 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 Encounter for supervision of other normal pregna ncy 03/13/2011 09/11/2016 Overview: ICD-10 update of inactive term Acute bronchitis, complicated 02/25/2010 Asthma with severity to be determined 02/13/2017 Overview: ICD-10 update of inactive term documented as of this encounter (statuses as of 03/06/2022) Immunizations Name Administration Dates Next Due COVID-19 mRNA, LNP-s, No Pre serve, 2-Dose Series ([employer]) 01/02/2021,12/12/2020 Diptheria/Tetanus (Adult) 02/10/19982007 HEP A - [...] Progress Notes * Lorene Dhaliwal LPN - 03/06/2022 12:20 PM EDT Pre-injection Questionnaire Patient identified by [...] Visit Allergy & Immunology Valeriy Milton MD [address] [place] [address] Health Maintenance Due Date Last Done Comments [...] Documents on File Type Date Recorded Patient Arts Manager Expl 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 and were consensually agreed upon. Care Teams Cotton Farmer Relationship Specialty Start Date End Date Gab Smith DO [address] [facility] [place] [address] PCP - General Family Medicine 11/14/18 documented as of this encounter
--- OUTSIDE RECORDS SUMMARY | 2023-04-16 16:06 | External Medical Summary | Summary of Care ---
Author Name Unknown Organization [facility] Address [place] [address] Care Team Providers Care Lining Caser Name Role Phone Gab Smith Primary Care Provider Reason for Visit * Reason Onset Date Comments Allergy Injection 02/23/2022 Encounter Details Date Type Department Care Team Description 02/23/2022 Immunization/In jection Allergy/Immunology [facility] [place] [address] [place] [address] Betty Nurse Allergy Scenery [address] [place] [address] Allergic rhinitis, unspecified seasonality, unspecified trigger* Allergies Active Allergy Reactions Severity Noted Date Comments [place] (Diagnostic) Anaphylaxis High 05/21/2017 Banana Edema airway High 01/10/2017 Cat Dander Anaphylaxis High 05/21/2017 Corylus Anaphylaxis High 05/21/2017 Latex Rash Low 01/10/2017 Lac Bovis Other (Please comment) 01/16/2017 Mouth tenderness. Peanut (Diagnostic) Anaphylaxis High 05/21/2017 Prednisone Psych complications 01/17/2017 agitation Sesame Seed (Diagnostic) Anaphylaxis High 05/21/2017 Soy Allergy Anaphylaxis High 01/16/2017 [place] Oil Edema airway High 01/10/2017 Wasp Venom Edema airway High 01/10/2017 documented as of this encounter (statuses as of 02/23/2022) Medications Medication Sig Dispensed Refills Start Date [...] SPRAY) 0.65 % nasal spray Administer 1 [place] into nostril as needed for Congestion. 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 Encounter for supervision of other normal pregna ncy 03/13/2011 09/11/2016 Overview: ICD-10 update of inactive term Acute bronchitis, complicated 02/25/2010 Asthma with severity to be determined 02/13/2017 Overview: ICD-10 update of inactive term documented as of this encounter (statuses as of 02/23/2022) Immunizations Name Administration Dates Next Due COVID-19 mRNA, LNP-s, No Pre serve, 2-Dose Series ([employer]) 01/02/2021,12/12/2020 Diptheria/Tetanus (Adult) 02/10/19982007 HEP A - [...] Progress Notes * Lorene Dhaliwal LPN - 02/23/2022 12:09 PM EDT Pre-injection Questionnaire Patient identified by [...] Visit Allergy & Immunology Valeriy Milton MD [address] [place] [address] Health Maintenance Due Date Last Done Comments [...] Documents on File Type Date Recorded Patient Applied Anthropologist Expl 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 Care Teams Lining Caser Relationship Specialty Start Date End Date Gab Smith DO [address] [facility] [place] [address] PCP - General Family Medicine 11/14/18 documented as of this encounter
--- OUTSIDE RECORDS SUMMARY | 2023-04-16 16:06 | External Medical Summary | Summary of Care ---
Author Name Unknown Organization [place] [address] Care Team Providers Care Telephone Service Adviser Name Role Phone Gab Smith DO Primary Care Provider [phone] Reason for Visit * Reason Comments eRx-Medication Refill Encounter Details Date Type Department Care Team Description 02/09/2022 Refill Allergy/Immunology [facility] [address] [facility] [address] Ramses Bryant MD [address] [place] [address] Allergic reaction, subsequent encounter Allergies Active Allergy Reactions Severity Noted Date Comments [place] (Diagnostic) Anaphylaxis High 05/21/2017 Banana Edema airway High 01/10/2017 Cat Dander Anaphylaxis High 05/21/2017 Corylus Anaphylaxis High 05/21/2017 Latex Rash Low 01/10/2017 Lac Bovis Other (Please comment) 01/16/2017 Mouth tenderness. Peanut (Diagnostic) Anaphylaxis High 05/21/2017 Prednisone Psych complications 01/17/2017 agitation Sesame Seed (Diagnostic) Anaphylaxis High 05/21/2017 Soy Allergy Anaphylaxis High 01/16/2017 [place] Oil Edema airway High 01/10/2017 Wasp Venom Edema airway High 01/10/2017 documented as of this encounter (statuses as of 02/12/2022) Medications Medication Sig Dispensed Refills Start Date [...] SPRAY) 0.65 % nasal spray Administer 1 [place] into nostril as needed for Congestion. 0 [...] emergency room. 2 Each 3 02/12/2022 Active EPINEPHrine, anaphylaxis, (AUTOINJECTOR) 0.3 MG/0.3ML SOAJIndications:Al lergic reaction, subsequent encounter For a severe reaction: Place orange end against the outer thigh, press firmly, hold in place for 10 seconds and go to the Emergency room. 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 Encounter for supervision of other normal pregna ncy 03/13/2011 09/11/2016 Overview: ICD-10 update of inactive term Acute bronchitis, complicated 02/25/2010 Asthma with severity to be determined 02/13/2017 Overview: ICD-10 update of inactive term documented as of this encounter (statuses as of 02/12/2022) Immunizations Name Administration Dates Next Due COVID-19 mRNA, LNP-s, No Pre serve, 2-Dose Series ([employer]) 01/02/2021,12/12/2020 Diptheria/Tetanus (Adult) 02/10/19982007 HEP A - [...] Telephone Encounter - Bhavana Saleh LPN - 02/12/2022 8:16 AM EDT rx approval noted * Telephone Encounter - Ramses Bryant MD - 02/12/2022 8:01 AM EDT Signed Prescriptions: Disp Refills EPINEPHrine 0.3 MG/0.3ML Injection Solutio*2 Each 3 Sig: for severe reaction: place orange end against the outer thigh, press firmly and hold for 10 seconds and go to the emergency room. Authorizing Provider: RAMSES BRYANT * Telephone Encounter - Lorene Dhaliwal LPN - 02/12/2022 7:46 AM EDT Pending Prescriptions: Disp Refills EPINEPHrine 0.3 MG/0.3ML Injection Soluti* 0 Sig: for severe reaction: place orange end against the outer thigh, press firmly and hold for 10 seconds and go to the emergency room. * Telephone Encounter - Lorene Dhaliwal LPN - 02/12/2022 7:45 AM EDT Pending Prescriptions: Disp Refills EPINEPHrine 0.3 MG/0.3ML Injection Soluti* 0 Sig: for severe reaction: place orange end against the outer thigh, press firmly and hold for 10 seconds and go to the emergency room. Last Visit: 08/04/2021 (in office), 08/22/2020 (telemedicine) Next Visit: 03/26/2022 Last date the medication was ordered: 03/01/20 Health Maintenance Topic Date Due Pneumococcal Vaccine: Pediatrics (0 to 5 Years) and At-Risk Patients (6 to 64 Years) (1 - PCV) Never done PAP SMEAR-EVERY 3 YRS,AGES 21-65 Never done DTaP,Tdap,and Td Vaccines (3 - Td or Tdap) 01/30/2019 Depression Screening, Annual for Pts 12 and Over 04/15/2020 COVID-19 Vaccine (3 - Booster for Pfizer series) 06/04/2021 Influenza Vaccine (FLU shot) Completed MENINGOCOCCAL (MENACTRA/MENVEO) Aged Out GARDASIL-HPV IMMUNIZATION SERIES [...] Description 03/26/2022 Office Visit Allergy & Immunology Ramses Bryant MD [address] [place] [address] Health Maintenance Due Date Last Done Comments [...] 06/04/2021 01/02/2021, 12/12/2020 Influenza Vaccine (FLU shot) Completed , 04/21/2020 GARDASIL-HPV IMMUNIZATION SERIES Aged Out No longer eligible b ased on patient's age to complete this topic MENINGOCOCCAL (MENACTRA/MENVEO) Aged Out No longer eligible b ased on patient's age to complete this topic documented as of this encounter Implants Not on filedocumented as of this encounter Visit Diagnoses Diagnosis Allergic reaction, subsequent encounter documented in this encounter Advance Directives Documents on File Type Date Recorded Patient Electronic Service Technician Expl 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 Care Teams Telephone Service Adviser Relationship Specialty Start Date End Date Gab Smith DO [address] [place] [address] PCP - General Family Medicine 11/14/18 documented as of this encounter
--- OUTSIDE RECORDS SUMMARY | 2023-04-16 16:07 | External Medical Summary | Summary of Care ---
Author Name Unknown Organization [place] [address] Care Team Providers Care Instructor Of Spanish Name Role Phone Gab Smith Primary Care Provider Reason for Visit * Reason Onset Date Comments Allergy Injection 01/26/2022 Encounter Details Date Type Department Care Team Description 01/26/2022 Immunization/In jection Allergy/Immunology [facility] [place] [address] [place] [address] Betty Nurse Allergy Scenery [address] [place] [address] Allergic rhinitis, unspecified seasonality, unspecified trigger* Allergies Active Allergy Reactions Severity Noted Date Comments [place] (Diagnostic) Anaphylaxis High 05/21/2017 Banana Edema airway High 01/10/2017 Cat Dander Anaphylaxis High 05/21/2017 Corylus Anaphylaxis High 05/21/2017 Latex Rash Low 01/10/2017 Lac Bovis Other (Please comment) 01/16/2017 Mouth tenderness. Peanut (Diagnostic) Anaphylaxis High 05/21/2017 Prednisone Psych complications 01/17/2017 agitation Sesame Seed (Diagnostic) Anaphylaxis High 05/21/2017 Soy Allergy Anaphylaxis High 01/16/2017 [place] Oil Edema airway High 01/10/2017 Wasp Venom Edema airway High 01/10/2017 documented as of this encounter (statuses as of 01/26/2022) Medications Medication Sig Dispensed Refills Start Date [...] SPRAY) 0.65 % nasal spray Administer 1 [place] into nostril as needed for Congestion. 0 [...] (or increased allergy symtpoms). 0 02/08/2020 Active EPINEPHrine, anaphylaxis, (AUTOINJECTOR) 0.3 MG/0.3ML SOAJIndications:Andry rgic reaction, subsequent encounter For a severe reaction: Place orange end against the outer thigh, press firmly, hold in place for 10 seconds and go to the Emergency room. 2 Each 3 03/01/2020 Active Multi-Vitamin Gummies Oral Tablet Chewable Take 1 Tab by mouth daily. 0 Active Albuterol Sulfate HFA 108 (90 Base) MCG/ACT Inhalation Aerosol SolutionIndications: Mild intermittent asthma without complication Inhale 2 Puffs by mouth every 4 hours as needed for Cough, Shortness of Breath or Wheezing. 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 Encounter for supervision of other normal pregna ncy 03/13/2011 09/11/2016 Overview: ICD-10 update of inactive term Acute bronchitis, complicated 02/25/2010 Asthma with severity to be determined 02/13/2017 Overview: ICD-10 update of inactive term documented as of this encounter (statuses as of 01/26/2022) Immunizations Name Administration Dates Next Due COVID-19 mRNA, LNP-s, No Pre serve, 2-Dose Series ([employer]) 01/02/2021,12/12/2020 Diptheria/Tetanus (Adult) 02/10/19982007 HEP A [...] Progress Notes * Lorene Dhaliwal LPN - 01/26/2022 12:25 PM EDT Pre-injection Questionnaire Patient identified by [...] Documents on File Type Date Recorded Patient Matchbook Maker Expl 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 and were consensually agreed upon. Care Teams Instructor Of Spanish Relationship Specialty Start Date End Date Gab Smith DO [address] [facility] [place] [address] PCP - General Family Medicine 11/14/18 documented as of this encounter
--- OUTSIDE RECORDS SUMMARY | 2023-04-16 16:07 | External Medical Summary | Summary of Care ---
Author Name Unknown Organization [place] [address] Care Team Providers Care Snow Blower Name Role Phone Gab Smith DO Primary Care Provider [phone] Reason for Visit * Reason Onset Date Comments Advice 11/30/2021 Encounter Details Date Type Department Care Team Description 11/30/2021 Telephone Allergy/Immunology [facility] [place] [address] [place] [address] Beverly Del Angel PA-C [address] [facility] [place] [address] Advice Allergies Active Allergy Reactions Severity Noted Date Comments [place] (Diagnostic) Anaphylaxis High 05/21/2017 Banana Edema airway High 01/10/2017 Cat Dander Anaphylaxis High 05/21/2017 Corylus Anaphylaxis High 05/21/2017 Latex Rash Low 01/10/2017 Lac Bovis Other (Please comment) 01/16/2017 Mouth tenderness. Peanut (Diagnostic) Anaphylaxis High 05/21/2017 Prednisone Psych complications 01/17/2017 agitation Sesame Seed (Diagnostic) Anaphylaxis High 05/21/2017 Soy Allergy Anaphylaxis High 01/16/2017 [place] Oil Edema airway High 01/10/2017 Wasp Venom Edema airway High 01/10/2017 documented as of this encounter (statuses as of 12/01/2021) Medications Medication Sig Dispensed Refills Start Date [...] SPRAY) 0.65 % nasal spray Administer 1 [place] into nostril as needed for Congestion. 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 Encounter for supervision of other normal pregna ncy 03/13/2011 09/11/2016 Overview: ICD-10 update of inactive term Acute bronchitis, complicated 02/25/2010 Asthma with severity to be determined 02/13/2017 Overview: ICD-10 update of inactive term documented as of this encounter (statuses as of 12/01/2021) Immunizations Name Administration Dates Next Due COVID-19 mRNA, LNP-s, No Pre serve, 2-Dose Series ([employer]) 01/02/2021,12/12/2020 Diptheria/Tetanus (Adult) 02/10/19982007 HEP A - [...] Telephone Encounter - Lorene Dhaliwal LPN - 12/01/2021 12:54 PM EDT Pt is aware and will do accordingly * Telephone Encounter - Beverly Del Angel PA-C - 12/01/2021 12:50 PM EDT Sore arms are to be expected with allergy shots. She can use cold packs and continue the Claritin and Benadryl. This usually gets better when you get to the maintenance dose. I would really like her to try to continue increasing her dose so that we can get her to maintenance dose and she can get the full effect from immunotherapy. Having a large local reaction does not mean that you are going to have a systemic reaction. Again I do not think that she had a systemic reaction to her immunotherapyyesterday. * Telephone Encounter - Lorene Dhaliwal LPN - 12/01/2021 12:06 PM EDT I called pt to see how she is doing. Pt states she is miserable. Pt states her arms are really swollen. Pt is taking Benadryl and claritin. Pt is not having issues with breathing or itchy eyes. * Telephone Encounter - Bhavana Saleh LPN - 12/01/2021 8:45 AM EDT Left message for patient to return call in follow up * Telephone Encounter - Beverly Del Angel PA-C - 11/30/2021 4:06 PM EDT Advice given below is appropriate. Yes please call and check on her tomorrow. I did examine her in the office and no signs or symptoms of anaphylaxis was noted. I suspect she is just having her usualallergy symptoms. No dose adjustment needed at this time. * Telephone Encounter - Bhavana Saleh LPN - 11/30/2021 3:18 PM EDT Beverly please review * Telephone Encounter - Bhavana Saleh LPN - 11/30/2021 3:02 PM EDT Pt was transferred to dept back line @ 1415 today Was in earlier for AIT during injection wait TimePt started complaining of sneezing with nasal stuffiness and drainage Was examined by Pt states after she got home continued to have nasal stuffiness and drainage with PND that required clearing of her throat and had 1 hive to the palm of her right hand Pt took her nasal inhaler Benadryl 50mg 1 cap and used 2 puffs of her Albuterol MDI @ 1400 Because she states "I felt wheezy" Spoke with Ambika Benítez Per Beverly Continue Clartin daily along with Flonase nasal inhaler and Gage nasal spray routinely Pt is also advised to continue Albuterol MDI 2 puffs every 4 hours as needed for coughing wheezing and SOB as ordered May continue Benadryl every 6 hours for hiving Per Beverly at this point after injection probably not having acute anaphylactic reaction Pt will report to office in AM how she is doing documented in this encounter Plan of Treatment Health Maintenance Due Date Last Done Comments Pneumococcal Vaccine: Pediatrics (0 to 5 Years) and At-Risk Patients (6 to 64 Years) (1 of 2 - PPSV23) 1989 PAP SMEAR-EVERY 3 YRS,AGES 21-65 2004 [...] Documents on File Type Date Recorded Patient Surgical Product Sales Consultant Expl 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 Care Teams Snow Blower Relationship Specialty Start Date End Date Gab Smith DO [address] [facility] [place] [address] PCP - General Family Medicine 11/14/18 documented as of this encounter
--- OUTSIDE RECORDS SUMMARY | 2023-04-16 16:07 | External Medical Summary | Summary of Care ---
Author Name Unknown Organization [facility] Address [place] [address] Care Team Providers Care Tank Carpenter Name Role Phone Gab Smith Primary Care Provider [phone] Reason for Visit * Reason Onset Date Comments Allergy Injection 12/29/2021 Encounter Details Date Type Department Care Team Description 12/29/2021 Immunization/In jection [facility] [place] [address] [place] [address] Betty Nurse Allergy Scenery [address] [place] [address] Allergic rhinitis, unspecified seasonality, unspecified trigger* Allergies Active Allergy Reactions Severity Noted Date Comments [place] (Diagnostic) Anaphylaxis High 05/21/2017 Banana Edema airway High 01/10/2017 Cat Dander Anaphylaxis High 05/21/2017 Corylus Anaphylaxis High 05/21/2017 Latex Rash Low 01/10/2017 Lac Bovis Other (Please comment) 01/16/2017 Mouth tenderness. Peanut (Diagnostic) Anaphylaxis High 05/21/2017 Prednisone Psych complications 01/17/2017 agitation Sesame Seed (Diagnostic) Anaphylaxis High 05/21/2017 Soy Allergy Anaphylaxis High 01/16/2017 [place] Oil Edema airway High 01/10/2017 Wasp Venom Edema airway High 01/10/2017 documented as of this encounter (statuses as of 12/29/2021) Medications Medication Sig Dispensed Refills Start Date [...] SPRAY) 0.65 % nasal spray Administer 1 [place] into nostril as needed for Congestion. 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 Encounter for supervision of other normal pregna ncy 03/13/2011 09/11/2016 Overview: ICD-10 update of inactive term Acute bronchitis, complicated 02/25/2010 Asthma with severity to be determined 02/13/2017 Overview: ICD-10 update of inactive term documented as of this encounter (statuses as of 12/29/2021) Immunizations Name Administration Dates Next Due COVID-19 mRNA, LNP-s, No Pre serve, 2-Dose Series ([employer]) 01/02/2021,12/12/2020 Diptheria/Tetanus (Adult) 02/10/19982007 HEP A - [...] Progress Notes * Lorene Dhaliwal LPN - 12/29/2021 10:53 AM EDT Pre-injection Questionnaire Patient identified by [...] Documents on File Type Date Recorded Patient Test Center Manager Expl 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 and were consensually agreed upon. Care Teams Tank Carpenter Relationship Specialty Start Date End Date Gab Smith DO [address] [facility] [place] [address] PCP - General Family Medicine 11/14/18 documented as of this encounter
--- OUTSIDE RECORDS SUMMARY | 2023-04-16 16:07 | External Medical Summary | Summary of Care ---
Author Name Unknown Organization [facility] [place] [address] Care Team Providers Care Canine Service Instructor Trainer Name Role Phone Gab Smith Primary Care Provider [phone] Reason for Visit * Reason Onset Date Comments Allergy Injection 11/21/2021 Encounter Details Date Type Department Care Team Description 11/21/2021 Immunization[facility] [place] [address] [place] [address] Betty Nurse Allergy [place] [address] [place] [address] Allergic rhinitis, unspecified seasonality, unspecified trigger* Allergies Active Allergy Reactions Severity Noted Date Comments [place] (Diagnostic) Anaphylaxis High 05/21/2017 Banana Edema airway High 01/10/2017 Cat Dander Anaphylaxis High 05/21/2017 Corylus Anaphylaxis High 05/21/2017 Latex Rash Low 01/10/2017 Lac Bovis Other (Please comment) 01/16/2017 Mouth tenderness. Peanut (Diagnostic) Anaphylaxis High 05/21/2017 Prednisone Psych complications 01/17/2017 agitation Sesame Seed (Diagnostic) Anaphylaxis High 05/21/2017 Soy Allergy Anaphylaxis High 01/16/2017 [place] Oil Edema airway High 01/10/2017 Wasp Venom Edema airway High 01/10/2017 documented as of this encounter (statuses as of 11/21/2021) Medications Medication Sig Dispensed Refills Start Date [...] SPRAY) 0.65 % nasal spray Administer 1 [place] into nostril as needed for Congestion. 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 Encounter for supervision of other normal pregna ncy 03/13/2011 09/11/2016 Overview: ICD-10 update of inactive term Acute bronchitis, complicated 02/25/2010 Asthma with severity to be determined 02/13/2017 Overview: ICD-10 update of inactive term documented as of this encounter (statuses as of 11/21/2021) Immunizations Name Administration Dates Next Due COVID-19 mRNA, LNP-s, No Pre serve, 2-Dose Series (Exam18) 01/02/2021,12/12/2020 Diptheria/Tetanus (Adult) 02/10/19982007 HEP A - [...] Progress Notes * Lorene Dhaliwal LPN - 11/21/2021 3:44 PM EDT Pre-injection Questionnaire Patient identified by [...] Documents on File Type Date Recorded Patient Qc Lab Technician Expl 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 and were consensually agreed upon. Care Teams Canine Service Instructor Trainer Relationship Specialty Start Date End Date Gab Smith DO [address] [facility] [place] [address] PCP - General Family Medicine 11/14/18 documented as of this encounter
--- OUTSIDE RECORDS SUMMARY | 2023-04-16 16:07 | External Medical Summary | Summary of Care ---
Author Name Unknown Organization [facility] Address [place] [address] Care Team Providers Care Chemical Dependency Counselor Name Role Phone Gab Smith Primary Care Provider Reason for Visit * Reason Onset Date Comments Allergy Injection 12/07/2021 Encounter Details Date Type Department Care Team Description 12/07/2021 Immunization[facility] [place] [address] [place] [address] Betty Nurse Allergy Scenery [address] [place] [address] Allergic rhinitis, unspecified seasonality, unspecified trigger* Allergies Active Allergy Reactions Severity Noted Date Comments [place] (Diagnostic) Anaphylaxis High 05/21/2017 Banana Edema airway High 01/10/2017 Cat Dander Anaphylaxis High 05/21/2017 Corylus Anaphylaxis High 05/21/2017 Latex Rash Low 01/10/2017 Lac Bovis Other (Please comment) 01/16/2017 Mouth tenderness. Peanut (Diagnostic) Anaphylaxis High 05/21/2017 Prednisone Psych complications 01/17/2017 agitation Sesame Seed (Diagnostic) Anaphylaxis High 05/21/2017 Soy Allergy Anaphylaxis High 01/16/2017 [place] Oil Edema airway High 01/10/2017 Wasp Venom Edema airway High 01/10/2017 documented as of this encounter (statuses as of 12/07/2021) Medications Medication Sig Dispensed Refills Start Date [...] SPRAY) 0.65 % nasal spray Administer 1 [place] into nostril as needed for Congestion. 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 Encounter for supervision of other normal pregna ncy 03/13/2011 09/11/2016 Overview: ICD-10 update of inactive term Acute bronchitis, complicated 02/25/2010 Asthma with severity to be determined 02/13/2017 Overview: ICD-10 update of inactive term documented as of this encounter (statuses as of 12/07/2021) Immunizations Name Administration Dates Next Due COVID-19 mRNA, LNP-s, No Pre serve, 2-Dose Series (Nanomix) 01/02/2021,12/12/2020 Diptheria/Tetanus (Adult) 02/10/19982007 HEP A - [...] Progress Notes * Bhavana Saleh LPN - 12/07/2021 11:09 AM EDT Pre-injection Questionnaire Patient identified by [...] swelling that persisted in the next day? yes 5. Are you on any new medications or eye drops? No 6. Are you or have been diagnosed with a new medical condition? No &. Beverly checked Pt at last visit after complaints of increased nasal congestion sneezing Per Beverly Del Angel's order may increased per build up protocol At today's visit Today's peak flow - There were no [...] Documents on File Type Date Recorded Patient Diabetes Manager Expl 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 and were consensually agreed upon. Care Teams Chemical Dependency Counselor Relationship Specialty Start Date End Date Gab Smith DO [address] [facility] [place] [address] PCP - General Family Medicine 11/14/18 documented as of this encounter
--- OUTSIDE RECORDS SUMMARY | 2023-04-16 16:07 | External Medical Summary | Summary of Care ---
Author Name Unknown Organization [place] [address] Care Team Providers Care Health Companion Name Role Phone Gab Smith Primary Care Provider [phone] Reason for Visit * Reason Onset Date Comments Advice 12/25/2021 Weekly Injection s Encounter Details Date Type Department Care Team Description 12/25/2021 Telephone Allergy/Immunology [place] [address] [place] [address] Betty Nurse Allergy [facility] [address] [place] [address] Advice (Weekly Injections) Allergies Active Allergy Reactions Severity Noted Date Comments [place] (Diagnostic) Anaphylaxis High 05/21/2017 Banana Edema airway High 01/10/2017 Cat Dander Anaphylaxis High 05/21/2017 Corylus Anaphylaxis High 05/21/2017 Latex Rash Low 01/10/2017 Lac Bovis Other (Please comment) 01/16/2017 Mouth tenderness. Peanut (Diagnostic) Anaphylaxis High 05/21/2017 Prednisone Psych complications 01/17/2017 agitation Sesame Seed (Diagnostic) Anaphylaxis High 05/21/2017 Soy Allergy Anaphylaxis High 01/16/2017 [place] Oil Edema airway High 01/10/2017 Wasp Venom Edema airway High 01/10/2017 documented as of this encounter (statuses as of 12/25/2021) Medications Medication Sig Dispensed Refills Start Date [...] SPRAY) 0.65 % nasal spray Administer 1 [place] into nostril as needed for Congestion. 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 Encounter for supervision of other normal pregna ncy 03/13/2011 09/11/2016 Overview: ICD-10 update of inactive term Acute bronchitis, complicated 02/25/2010 Asthma with severity to be determined 02/13/2017 Overview: ICD-10 update of inactive term documented as of this encounter (statuses as of 12/25/2021) Immunizations Name Administration Dates Next Due COVID-19 mRNA, LNP-s, No Pre serve, 2-Dose Series (Kinoos) 01/02/2021,12/12/2020 Diptheria/Tetanus (Adult) 02/10/19982007 HEP A - [...] Telephone Encounter - Bhavana Saleh LPN - 12/25/2021 11:22 AM EDT Noted * Telephone Encounter - SUSAN Villagomez - 12/25/2021 10:00 AM EDT Pt calling in to make us aware she has been sick for the past few weeks and that is why she missed her past 2 injections. She is hoping to come in on if she feels better. She didn't want us to think she didn't want the injections anymore. Please advise. documented in this encounter Plan of Treatment [...] Documents on File Type Date Recorded Patient Contract Administrative Assistant Expl 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 and were consensually agreed upon. Care Teams Health Companion Relationship Specialty Start Date End Date Gab Smith DO [address] [facility] [place] [address] PCP - General Family Medicine 11/14/18 documented as of this encounter
--- OUTSIDE RECORDS SUMMARY | 2023-04-16 16:07 | External Medical Summary | Summary of Care ---
Author Name Unknown Organization [place] [address] Care Team Providers Care Transfer Station Operator Name Role Phone Gab Smith DO Primary Care Provider [phone] Reason for Visit * Reason Onset Date Comments Allergy Serum 02/09/2022 Encounter Details Date Type Department Care Team Description 02/09/2022 Nurse Only Allergy/Immunology Scenery [place] [address] [place] [address] Betty Nurse Allergy Scenery [address] [place] [address] Allergy Serum Allergies Active Allergy Reactions Severity Noted Date Comments [place] (Diagnostic) Anaphylaxis High 05/21/2017 Banana Edema airway High 01/10/2017 Cat Dander Anaphylaxis High 05/21/2017 Corylus Anaphylaxis High 05/21/2017 Latex Rash Low 01/10/2017 Lac Bovis Other (Please comment) 01/16/2017 Mouth tenderness. Peanut (Diagnostic) Anaphylaxis High 05/21/2017 Prednisone Psych complications 01/17/2017 agitation Sesame Seed (Diagnostic) Anaphylaxis High 05/21/2017 Soy Allergy Anaphylaxis High 01/16/2017 [place] Oil Edema airway High 01/10/2017 Wasp Venom Edema airway High 01/10/2017 documented as of this encounter (statuses as of 02/09/2022) Medications Medication Sig Dispensed Refills Start Date [...] SPRAY) 0.65 % nasal spray Administer 1 [place] into nostril as needed for Congestion. 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 Encounter for supervision of other normal pregna ncy 03/13/2011 09/11/2016 Overview: ICD-10 update of inactive term Acute bronchitis, complicated 02/25/2010 Asthma with severity to be determined 02/13/2017 Overview: ICD-10 update of inactive term documented as of this encounter (statuses as of 02/09/2022) Immunizations Name Administration Dates Next Due COVID-19 mRNA, LNP-s, No Pre serve, 2-Dose Series (SnapTell) 01/02/2021,12/12/2020 Diptheria/Tetanus (Adult) 02/10/19982007 HEP A - [...] Progress Notes * Lorene Dhaliwal LPN - 02/09/2022 1:25 PM EDT The pt has been properly identified by confirmation of name and date of . AIT serum(s) prepared per Dr Milton's prescription Lorene Dhaliwal LPN 02/09/2022 documented in this encounter Plan of Treatment Upcoming Encounters Date Type Specialty Care Team Description 03/26/2022 Office Visit Allergy & Immunology Valeriy Milton MD [address] [facility], [place] [address] Scheduled Orders Name Type Priority Associated Diagnoses Orde r Schedule ANTIGEN THERAPY SERVICES Procedures Routine Allergic rhinitis due to pollen, unspecified seasonality Ordered: 02/09/2022 Health Maintenance Due Date Last Done Comments [...] Documents on File Type Date Recorded Patient Tumbler Dyeing Machine Operator Expl 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 Care Teams Transfer Station Operator Relationship Specialty Start Date End Date Gab Smith DO [address] [facility] [place] [address] PCP - General Family Medicine 11/14/18 documented as of this encounter
--- OUTSIDE RECORDS SUMMARY | 2023-04-16 16:07 | External Medical Summary | Summary of Care ---
Author Name Unknown Organization [facility] Address [place] [address] Care Team Providers Care Roll Reclaimer Name Role Phone Gab Smith Primary Care Provider [phone] Reason for Visit * Reason Onset Date Comments Allergy Injection 01/16/2022 Encounter Details Date Type Department Care Team Description 01/16/2022 Immunization/In [facility]ection [facility] [place] [address] [place] [address] Betty Nurse Allergy Scenery [address] [place] [address] Allergic rhinitis, unspecified seasonality, unspecified trigger* Allergies Active Allergy Reactions Severity Noted Date Comments [place] (Diagnostic) Anaphylaxis High 05/21/2017 Banana Edema airway High 01/10/2017 Cat Dander Anaphylaxis High 05/21/2017 Corylus Anaphylaxis High 05/21/2017 Latex Rash Low 01/10/2017 Lac Bovis Other (Please comment) 01/16/2017 Mouth tenderness. Peanut (Diagnostic) Anaphylaxis High 05/21/2017 Prednisone Psych complications 01/17/2017 agitation Sesame Seed (Diagnostic) Anaphylaxis High 05/21/2017 Soy Allergy Anaphylaxis High 01/16/2017 [place] Oil Edema airway High 01/10/2017 Wasp Venom Edema airway High 01/10/2017 documented as of this encounter (statuses as of 01/16/2022) Medications Medication Sig Dispensed Refills Start Date [...] SPRAY) 0.65 % nasal spray Administer 1 [place] into nostril as needed for Congestion. 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 Encounter for supervision of other normal pregna ncy 03/13/2011 09/11/2016 Overview: ICD-10 update of inactive term Acute bronchitis, complicated 02/25/2010 Asthma with severity to be determined 02/13/2017 Overview: ICD-10 update of inactive term documented as of this encounter (statuses as of 01/16/2022) Immunizations Name Administration Dates Next Due COVID-19 mRNA, LNP-s, No Pre serve, 2-Dose Series ([employer]) 01/02/2021,12/12/2020 Diptheria/Tetanus (Adult) 02/10/19982007 HEP A - [...] Progress Notes * Lorene Dhaliwal LPN - 01/16/2022 12:22 PM EDT Pre-injection Questionnaire Patient identified by [...] Documents on File Type Date Recorded Patient Investment Banking Manager Expl 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 and were consensually agreed upon. Care Teams Roll Reclaimer Relationship Specialty Start Date End Date Gab Smith DO [address] [facility] [place] [address] PCP - General Family Medicine 11/14/18 documented as of this encounter
--- OUTSIDE RECORDS SUMMARY | 2023-04-16 16:07 | External Medical Summary | Summary of Care ---
Author Name Unknown Organization [facility] Address [place] [address] Care Team Providers Care Crepe Box Tender Name Role Phone Gab Smith Primary Care Provider Reason for Visit * Reason Onset Date Comments Allergy Injection 01/09/2022 Encounter Details Date Type Department Care Team Description 01/09/2022 Immunization/In jection Allergy/Immunology [facility] [place] [address] [place] [address] Betty Nurse Allergy Scenery [address] [place] [address] Allergic rhinitis, unspecified seasonality, unspecified trigger* Allergies Active Allergy Reactions Severity Noted Date Comments [place] (Diagnostic) Anaphylaxis High 05/21/2017 Banana Edema airway High 01/10/2017 Cat Dander Anaphylaxis High 05/21/2017 Corylus Anaphylaxis High 05/21/2017 Latex Rash Low 01/10/2017 Lac Bovis Other (Please comment) 01/16/2017 Mouth tenderness. Peanut (Diagnostic) Anaphylaxis High 05/21/2017 Prednisone Psych complications 01/17/2017 agitation Sesame Seed (Diagnostic) Anaphylaxis High 05/21/2017 Soy Allergy Anaphylaxis High 01/16/2017 [place] Oil Edema airway High 01/10/2017 Wasp Venom Edema airway High 01/10/2017 documented as of this encounter (statuses as of 01/09/2022) Medications Medication Sig Dispensed Refills Start Date [...] SPRAY) 0.65 % nasal spray Administer 1 [place] into nostril as needed for Congestion. 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 Encounter for supervision of other normal pregna ncy 03/13/2011 09/11/2016 Overview: ICD-10 update of inactive term Acute bronchitis, complicated 02/25/2010 Asthma with severity to be determined 02/13/2017 Overview: ICD-10 update of inactive term documented as of this encounter (statuses as of 01/09/2022) Immunizations Name Administration Dates Next Due COVID-19 mRNA, LNP-s, No Pre serve, 2-Dose Series (Stayfilm) 01/02/2021,12/12/2020 Diptheria/Tetanus (Adult) 02/10/19982007 HEP A - [...] Progress Notes * Bhavana Saleh LPN - 01/09/2022 12:00 PM EDT Pre-injection Questionnaire Patient identified by [...] Documents on File Type Date Recorded Patient Radio Adjuster Expl 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 Care Teams Crepe Box Tender Relationship Specialty Start Date End Date Gab Smith, [address] [facility] [place] [address] PCP - General Family Medicine 11/14/18 documented as of this encounter
--- OUTSIDE RECORDS SUMMARY | 2023-04-16 16:07 | External Medical Summary | Summary of Care ---
Author Name Unknown Organization [place] [address] Care Team Providers Care Machine Rug Cleaner Name Role Phone Gab Smith Primary Care Provider Reason for Visit * Reason Onset Date Comments Allergy Injection 11/30/2021 Encounter Details Date Type Department Care Team Description 11/30/2021 Immunization[facility] [place] [address] [place] [address] Betty Nurse Allergy Scenery [address] [place] [address] Allergic rhinitis, unspecified seasonality, unspecified trigger* Allergies Active Allergy Reactions Severity Noted Date Comments [place] (Diagnostic) Anaphylaxis High 05/21/2017 Banana Edema airway High 01/10/2017 Cat Dander Anaphylaxis High 05/21/2017 Corylus Anaphylaxis High 05/21/2017 Latex Rash Low 01/10/2017 Lac Bovis Other (Please comment) 01/16/2017 Mouth tenderness. Peanut (Diagnostic) Anaphylaxis High 05/21/2017 Prednisone Psych complications 01/17/2017 agitation Sesame Seed (Diagnostic) Anaphylaxis High 05/21/2017 Soy Allergy Anaphylaxis High 01/16/2017 [place] Oil Edema airway High 01/10/2017 Wasp Venom Edema airway High 01/10/2017 documented as of this encounter (statuses as of 11/30/2021) Medications Medication Sig Dispensed Refills Start Date [...] SPRAY) 0.65 % nasal spray Administer 1 [place] into nostril as needed for Congestion. 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 Encounter for supervision of other normal pregna ncy 03/13/2011 09/11/2016 Overview: ICD-10 update of inactive term Acute bronchitis, complicated 02/25/2010 Asthma with severity to be determined 02/13/2017 Overview: ICD-10 update of inactive term documented as of this encounter (statuses as of 11/30/2021) Immunizations Name Administration Dates Next Due COVID-19 mRNA, LNP-s, No Pre serve, 2-Dose Series ([employer] 01/02/2021,12/12/2020 Diptheria/Tetanus (Adult) 02/10/19982007 HEP A - [...] Progress Notes * Bhavana Saleh LPN - 11/30/2021 12:13 PM EDT Pre-injection Questionnaire Patient identified by [...] Injections CPSL Flowsheet* documented in this encounter Nursing Notes * Lorene Dhaliwal LPN - 11/30/2021 1:00 PM EDT 1249 after pt's 30 minute wait time pt c/o sneezing nose stuffy and running. Pt also feels flushed.Prabhakar [place] PA-C is notified of pt's condition. documented in this encounter Plan of Treatment [...] Documents on File Type Date Recorded Patient Tractor Trailer Mechanic Expl 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 Care Teams Machine Rug Cleaner Relationship Specialty Start Date End Date Gab Smith DO [address] [place] [address] PCP - General Family Medicine 11/14/18 documented as of this encounter
--- OUTSIDE RECORDS SUMMARY | 2023-04-16 16:07 | External Medical Summary | Summary of Care ---
Author Name Unknown Organization [facility] Address [place] [address] Care Team Providers Care Fabrication And Assembly Supervisor Name Role Phone Gab Smith Primary Care Provider Reason for Visit * Reason Onset Date Comments Allergy Injection 02/02/2022 Encounter Details Date Type Department Care Team Description 02/02/2022 Immunization[facility] [place] [address] [place] [address] Betty Nurse Allergy Scenery [address] [place] [address] Allergic rhinitis, unspecified seasonality, unspecified trigger* Allergies Active Allergy Reactions Severity Noted Date Comments [place] (Diagnostic) Anaphylaxis High 05/21/2017 Banana Edema airway High 01/10/2017 Cat Dander Anaphylaxis High 05/21/2017 Corylus Anaphylaxis High 05/21/2017 Latex Rash Low 01/10/2017 Lac Bovis Other (Please comment) 01/16/2017 Mouth tenderness. Peanut (Diagnostic) Anaphylaxis High 05/21/2017 Prednisone Psych complications 01/17/2017 agitation Sesame Seed (Diagnostic) Anaphylaxis High 05/21/2017 Soy Allergy Anaphylaxis High 01/16/2017 [place] Oil Edema airway High 01/10/2017 Wasp Venom Edema airway High 01/10/2017 documented as of this encounter (statuses as of 02/02/2022) Medications Medication Sig Dispensed Refills Start Date [...] SPRAY) 0.65 % nasal spray Administer 1 [place] into nostril as needed for Congestion. 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 Encounter for supervision of other normal pregna ncy 03/13/2011 09/11/2016 Overview: ICD-10 update of inactive term Acute bronchitis, complicated 02/25/2010 Asthma with severity to be determined 02/13/2017 Overview: ICD-10 update of inactive term documented as of this encounter (statuses as of 02/02/2022) Immunizations Name Administration Dates Next Due COVID-19 mRNA, LNP-s, No Pre serve, 2-Dose Series (milabent) 01/02/2021,12/12/2020 Diptheria/Tetanus (Adult) 02/10/19982007 HEP A - [...] Progress Notes * Bhavana Saleh LPN - 02/02/2022 12:37 PM EDT Pre-injection Questionnaire Patient identified [...] Allergy & Immunology Valeriy Milton MD [address] [place] [address] Health Maintenance Due Date Last Done Comments [...] Documents on File Type Date Recorded Patient Renderer Expl 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 Care Teams Fabrication And Assembly Supervisor Relationship Specialty Start Date End Date Gab Smith DO [address] [place] [address] PCP - General Family Medicine 11/14/18 documented as of this encounter
--- OUTSIDE RECORDS SUMMARY | 2023-04-16 16:08 | External Medical Summary | Summary of Care ---
Author Name Unknown Organization [facility] [place] [address] Care Team Providers Care Slicing Machine Operator/Tender Name Role Phone Gab Smith Primary Care Provider Reason for Visit * Reason Onset Date Comments Allergy Injection 11/14/2021 Encounter Details Date Type Department Care Team Description 11/14/2021 Immunization[facility] [place] [address] [place] [address] Betty Nurse Allergy Scenery [address] [place] [address] Allergic rhinitis, unspecified seasonality, unspecified trigger* Allergies Active Allergy Reactions Severity Noted Date Comments [place] (Diagnostic) Anaphylaxis High 05/21/2017 Banana Edema airway High 01/10/2017 Cat Dander Anaphylaxis High 05/21/2017 Corylus Anaphylaxis High 05/21/2017 Latex Rash Low 01/10/2017 Lac Bovis Other (Please comment) 01/16/2017 Mouth tenderness. Peanut (Diagnostic) Anaphylaxis High 05/21/2017 Prednisone Psych complications 01/17/2017 agitation Sesame Seed (Diagnostic) Anaphylaxis High 05/21/2017 Soy Allergy Anaphylaxis High 01/16/2017 [place] Oil Edema airway High 01/10/2017 Wasp Venom Edema airway High 01/10/2017 documented as of this encounter (statuses as of 11/14/2021) Medications Medication Sig Dispensed Refills Start Date [...] SPRAY) 0.65 % nasal spray Administer 1 [place] into nostril as needed for Congestion. 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 Encounter for supervision of other normal pregna ncy 03/13/2011 09/11/2016 Overview: ICD-10 update of inactive term Acute bronchitis, complicated 02/25/2010 Asthma with severity to be determined 02/13/2017 Overview: ICD-10 update of inactive term documented as of this encounter (statuses as of 11/14/2021) Immunizations Name Administration Dates Next Due COVID-19 mRNA, LNP-s, No Pre serve, 2-Dose Series (GetGifted) 01/02/2021,12/12/2020 Diptheria/Tetanus (Adult) 02/10/19982007 HEP A - [...] Progress Notes * Lorene Dhaliwal LPN - 11/14/2021 11:08 AM EDT Pre-injection Questionnaire Patient identified by [...] Documents on File Type Date Recorded 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 Care Teams Slicing Machine Operator/Tender Relationship Specialty Start Date End Date Gab Smith, DO [address] [facility] [place] [address] PCP - General Family Medicine 11/14/18 documented as of this encounter
--- OUTSIDE RECORDS SUMMARY | 2023-04-16 16:09 | External Medical Summary | Summary of Care ---
Author Name Unknown Organization [facility] Address [place] [address] Care Team Providers Care Hamper Maker Name Role Phone Gab Smith Primary Care Provider Reason for Visit * Reason Onset Date Comments Allergy Injection 10/10/2021 Encounter Details Date Type Department Care Team Description 10/10/2021 Immunization/In jection Allergy/Immunology [facility] [place] [address] [place] [address] Betty Nurse Allergy Scenery [address] [place] [address] Allergic rhinitis, unspecified seasonality, unspecified trigger* Allergies Active Allergy Reactions Severity Noted Date Comments [place] (Diagnostic) Anaphylaxis High 05/21/2017 Banana Edema airway High 01/10/2017 Cat Dander Anaphylaxis High 05/21/2017 Corylus Anaphylaxis High 05/21/2017 Latex Rash Low 01/10/2017 Lac Bovis Other (Please comment) 01/16/2017 Mouth tenderness. Peanut (Diagnostic) Anaphylaxis High 05/21/2017 Prednisone Psych complications 01/17/2017 agitation Sesame Seed (Diagnostic) Anaphylaxis High 05/21/2017 Soy Allergy Anaphylaxis High 01/16/2017 [place] Oil Edema airway High 01/10/2017 Wasp Venom Edema airway High 01/10/2017 documented as of this encounter (statuses as of 10/10/2021) Medications Medication Sig Dispensed Refills Start Date [...] SPRAY) 0.65 % nasal spray Administer 1 [place] into nostril as needed for Congestion. 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 Encounter for supervision of other normal pregna ncy 03/13/2011 09/11/2016 Overview: ICD-10 update of inactive term Acute bronchitis, complicated 02/25/2010 Asthma with severity to be determined 02/13/2017 Overview: ICD-10 update of inactive term documented as of this encounter (statuses as of 10/10/2021) Immunizations Name Administration Dates Next Due COVID-19 mRNA, LNP-s, No Pre serve, 2-Dose Series (Taptu) 01/02/2021,12/12/2020 Diptheria/Tetanus (Adult) 02/10/19982007 HEP A - [...] Progress Notes * Lorene Dhaliwal LPN - 10/10/2021 1:06 PM EST Pre-injection Questionnaire Patient identified by [...] Documents on File Type Date Recorded Patient Advisor Consultant Expl 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 and were consensually agreed upon. Care Teams Hamper Maker Relationship Specialty Start Date End Date Gab Smiht DO [address] [facility] [place] [address] PCP - General Family Medicine 11/14/18 documented as of this encounter
--- OUTSIDE RECORDS SUMMARY | 2023-04-16 16:09 | External Medical Summary | Summary of Care ---
Author Name Unknown Organization [facility] Address [place] [address] Care Team Providers Care Agronomist Name Role Phone Gab Smith Primary Care Provider [phone] Reason for Visit * Reason Onset Date Comments Allergy Injection 10/27/2021 Encounter Details Date Type Department Care Team Description 10/27/2021 Immunization[facility]In jection [facility] [place] [address] [place] [address] Betty Nurse Allergy Scenery [address] [place] [address] Allergic rhinitis, unspecified seasonality, unspecified trigger* Allergies Active Allergy Reactions Severity Noted Date Comments [place] (Diagnostic) Anaphylaxis High 05/21/2017 Banana Edema airway High 01/10/2017 Cat Dander Anaphylaxis High 05/21/2017 Corylus Anaphylaxis High 05/21/2017 Latex Rash Low 01/10/2017 Lac Bovis Other (Please comment) 01/16/2017 Mouth tenderness. Peanut (Diagnostic) Anaphylaxis High 05/21/2017 Prednisone Psych complications 01/17/2017 agitation Sesame Seed (Diagnostic) Anaphylaxis High 05/21/2017 Soy Allergy Anaphylaxis High 01/16/2017 [place] Oil Edema airway High 01/10/2017 Wasp Venom Edema airway High 01/10/2017 documented as of this encounter (statuses as of 10/27/2021) Medications Medication Sig Dispensed Refills Start Date [...] SPRAY) 0.65 % nasal spray Administer 1 [place] into nostril as needed for Congestion. 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 Encounter for supervision of other normal pregna ncy 03/13/2011 09/11/2016 Overview: ICD-10 update of inactive term Acute bronchitis, complicated 02/25/2010 Asthma with severity to be determined 02/13/2017 Overview: ICD-10 update of inactive term documented as of this encounter (statuses as of 10/27/2021) Immunizations Name Administration Dates Next Due COVID-19 mRNA, LNP-s, No Pre serve, 2-Dose Series (Biomedix vascular solution) 01/02/2021,12/12/2020 Diptheria/Tetanus (Adult) 02/10/19982007 HEP A - [...] as of this encounter Progress Notes * Liz Cr RN - 10/27/2021 11:46 AM EST Pre-injection Questionnaire Patient identified by stating [...] Documents on File Type Date Recorded 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 Care Teams Agronomist Relationship Specialty Start Date End Date Gab Smith DO [address] [facility] [place] [address] PCP - General Family Medicine 11/14/18 documented as of this encounter
--- OUTSIDE RECORDS SUMMARY | 2023-04-16 16:09 | External Medical Summary | Summary of Care ---
Author Name Unknown Organization [facility] Address [place] [address] Care Team Providers Care Chemical Etching Processor Name Role Phone Gab Smith Primary Care Provider Reason for Visit * Reason Onset Date Comments Allergy Injection 11/06/2021 Encounter Details Date Type Department Care Team Description 11/06/2021 Immunization[facility] [place] [address] [place] [address] Betty Nurse Allergy Scenery [address] [place] [address] Allergic rhinitis, unspecified seasonality, unspecified trigger* Allergies Active Allergy Reactions Severity Noted Date Comments [place] (Diagnostic) Anaphylaxis High 05/21/2017 Banana Edema airway High 01/10/2017 Cat Dander Anaphylaxis High 05/21/2017 Corylus Anaphylaxis High 05/21/2017 Latex Rash Low 01/10/2017 Lac Bovis Other (Please comment) 01/16/2017 Mouth tenderness. Peanut (Diagnostic) Anaphylaxis High 05/21/2017 Prednisone Psych complications 01/17/2017 agitation Sesame Seed (Diagnostic) Anaphylaxis High 05/21/2017 Soy Allergy Anaphylaxis High 01/16/2017 [place] Oil Edema airway High 01/10/2017 Wasp Venom Edema airway High 01/10/2017 documented as of this encounter (statuses as of 11/06/2021) Medications Medication Sig Dispensed Refills Start Date [...] SPRAY) 0.65 % nasal spray Administer 1 [place] into nostril as needed for Congestion. 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 Encounter for supervision of other normal pregna ncy 03/13/2011 09/11/2016 Overview: ICD-10 update of inactive term Acute bronchitis, complicated 02/25/2010 Asthma with severity to be determined 02/13/2017 Overview: ICD-10 update of inactive term documented as of this encounter (statuses as of 11/06/2021) Immunizations Name Administration Dates Next Due COVID-19 mRNA, LNP-s, No Pre serve, 2-Dose Series ([place]) 01/02/2021,12/12/2020 Diptheria/Tetanus (Adult) 02/10/19982007 HEP A - [...] Progress Notes * Bhavana Saleh LPN - 11/06/2021 11:34 AM EDT Pre-injection Questionnaire Patient identified by [...] Documents on File Type Date Recorded Patient Mri Technician Expl 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 were consensually agreed upon. Care Teams Chemical Etching Processor Relationship Specialty Start Date End Date Gab Smith, [address] [facility] [place] [address] PCP - General Family Medicine 11/14/18 documented as of this encounter
--- OUTSIDE RECORDS SUMMARY | 2023-04-16 16:09 | External Medical Summary | Summary of Care ---
Author Name Unknown Organization [facility] Address [place] [address] Care Team Providers Care Combination Man Name Role Phone Gab Smith Primary Care Provider Reason for Visit * Reason Onset Date Comments Allergy Injection 10/19/2021 Encounter Details Date Type Department Care Team Description 10/19/2021 Immunization[facility]In [facility]ection [facility] [place] [address] [place] [address] Betty Nurse Allergy Scenery [address] [place] [address] Allergic rhinitis, unspecified seasonality, unspecified trigger* Allergies Active Allergy Reactions Severity Noted Date Comments [place] (Diagnostic) Anaphylaxis High 05/21/2017 Banana Edema airway High 01/10/2017 Cat Dander Anaphylaxis High 05/21/2017 Corylus Anaphylaxis High 05/21/2017 Latex Rash Low 01/10/2017 Lac Bovis Other (Please comment) 01/16/2017 Mouth tenderness. Peanut (Diagnostic) Anaphylaxis High 05/21/2017 Prednisone Psych complications 01/17/2017 agitation Sesame Seed (Diagnostic) Anaphylaxis High 05/21/2017 Soy Allergy Anaphylaxis High 01/16/2017 [place] Oil Edema airway High 01/10/2017 Wasp Venom Edema airway High 01/10/2017 documented as of this encounter (statuses as of 10/19/2021) Medications Medication Sig Dispensed Refills Start Date [...] SPRAY) 0.65 % nasal spray Administer 1 [place] into nostril as needed for Congestion. 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 Encounter for supervision of other normal pregna ncy 03/13/2011 09/11/2016 Overview: ICD-10 update of inactive term Acute bronchitis, complicated 02/25/2010 Asthma with severity to be determined 02/13/2017 Overview: ICD-10 update of inactive term documented as of this encounter (statuses as of 10/19/2021) Immunizations Name Administration Dates Next Due COVID-19 mRNA, LNP-s, No Pre serve, 2-Dose Series (HRBoss) 01/02/2021,12/12/2020 Diptheria/Tetanus (Adult) 02/10/19982007 HEP A - [...] Progress Notes * Lorene Dhaliwal LPN - 10/19/2021 12:15 PM EST Pre-injection Questionnaire Patient identified by [...] or flu-like symptoms in the past week? Yes, mild stuffy nose but no breathing issues. 4. 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 Care Teams Combination Man Relationship Specialty Start Date End Date Gab Smith DO [address] [place] [address] PCP - General Family Medicine 11/14/18 documented as of this encounter
--- OUTSIDE RECORDS SUMMARY | 2023-04-16 16:09 | External Medical Summary | Summary of Care ---
Author Name Unknown Organization [place] [address] Care Team Providers Care Maple Syrup Maker Name Role Phone Gab Smith Primary Care Provider [phone] Reason for Visit * Reason Onset Date Comments Allergy Injection Allergy Injection 09/26/2021 Encounter Details Date Type Department Care Team Description 09/26/2021 Immunization/In jection Allergy/Immunology [facility] [place] [address] [place] [address] Betty Nurse Allergy [facility] [address] [facility] [place] [address] Allergic rhinitis, unspecified seasonality, unspecified trigger* Allergies Active Allergy Reactions Severity Noted Date Comments [place] (Diagnostic) Anaphylaxis High 05/21/2017 Banana Edema airway High 01/10/2017 Cat Dander Anaphylaxis High 05/21/2017 Corylus Anaphylaxis High 05/21/2017 Latex Rash Low 01/10/2017 Lac Bovis Other (Please comment) 01/16/2017 Mouth tenderness. Peanut (Diagnostic) Anaphylaxis High 05/21/2017 Prednisone Psych complications 01/17/2017 agitation Sesame Seed (Diagnostic) Anaphylaxis High 05/21/2017 Soy Allergy Anaphylaxis High 01/16/2017 [place] Oil Edema airway High 01/10/2017 Wasp Venom Edema airway High 01/10/2017 documented as of this encounter (statuses as of 09/26/2021) Medications Medication Sig Dispensed Refills Start Date [...] SPRAY) 0.65 % nasal spray Administer 1 [place] into nostril as needed for Congestion. 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 Encounter for supervision of other normal pregna ncy 03/13/2011 09/11/2016 Overview: ICD-10 update of inactive term Acute bronchitis, complicated 02/25/2010 Asthma with severity to be determined 02/13/2017 Overview: ICD-10 update of inactive term documented as of this encounter (statuses as of 09/26/2021) Immunizations Name Administration Dates Next Due COVID-19 [...] Progress Notes * Liz Cr RN - 09/26/2021 11:19 AM EST Pre-injection Questionnaire Patient identified by [...] Documents on File Type Date Recorded Patient Hot Dipper Expl 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 Care Teams Maple Syrup Maker Relationship Specialty Start Date End Date Gab Smith DO [address] [place] [address] PCP - General Family Medicine 11/14/18 documented as of this encounter
--- OUTSIDE RECORDS SUMMARY | 2023-04-16 16:09 | External Medical Summary | Summary of Care ---
Author Name Unknown Organization [facility] Address [place] [address] Care Team Providers Care Insurance Clerk Name Role Phone Gab Smith Primary Care Provider Reason for Visit * Reason Onset Date Comments Allergy Injection 10/03/2021 Encounter Details Date Type Department Care Team Description 10/03/2021 Immunization/In jection Allergy/Immunology [facility] [place] [address] [place] [address] Betty Nurse Allergy Scenery [address] [place] [address] Allergic rhinitis, unspecified seasonality, unspecified trigger* Allergies Active Allergy Reactions Severity Noted Date Comments [place] (Diagnostic) Anaphylaxis High 05/21/2017 Banana Edema airway High 01/10/2017 Cat Dander Anaphylaxis High 05/21/2017 Corylus Anaphylaxis High 05/21/2017 Latex Rash Low 01/10/2017 Lac Bovis Other (Please comment) 01/16/2017 Mouth tenderness. Peanut (Diagnostic) Anaphylaxis High 05/21/2017 Prednisone Psych complications 01/17/2017 agitation Sesame Seed (Diagnostic) Anaphylaxis High 05/21/2017 Soy Allergy Anaphylaxis High 01/16/2017 [place] Oil Edema airway High 01/10/2017 Wasp Venom Edema airway High 01/10/2017 documented as of this encounter (statuses as of 10/03/2021) Medications Medication Sig Dispensed Refills Start Date [...] SPRAY) 0.65 % nasal spray Administer 1 [place] into nostril as needed for Congestion. 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 Encounter for supervision of other normal pregna ncy 03/13/2011 09/11/2016 Overview: ICD-10 update of inactive term Acute bronchitis, complicated 02/25/2010 Asthma with severity to be determined 02/13/2017 Overview: ICD-10 update of inactive term documented as of this encounter (statuses as of 10/03/2021) Immunizations Name Administration Dates Next Due COVID-19 mRNA, LNP-s, No Pre serve, 2-Dose Series (Simply Zesty) 01/02/2021,12/12/2020 Diptheria/Tetanus (Adult) 02/10/19982007 HEP A - [...] Progress Notes * Lorene Dhaliwal LPN - 10/03/2021 4:29 PM EST Pre-injection Questionnaire Patient identified by [...] Documents on File Type Date Recorded Patient Retail Buyer Expl 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 Care Teams Insurance Clerk Relationship Specialty Start Date End Date Gab Smith DO [address] [facility] [place] [address] PCP - General Family Medicine 11/14/18 documented as of this encounter
--- OUTSIDE RECORDS SUMMARY | 2023-04-16 16:10 | External Medical Summary | Summary of Care ---
Author Name Unknown Organization [place] [address] Care Team Providers Care Intelligence Senior Sergeant Name Role Phone Gab Smith DO Primary Care Provider [phone] Reason for Visit * Reason Onset Date Comments Information 08/01/2021 Encounter Details Date Type Department Care Team Description 08/01/2021 Telephone Allergy/Immunology [facility] [address] [place] [address] Valeriy Milton MD [address] [place] [address] Information Allergies Active Allergy Reactions Severity Noted Date Comments [place] (Diagnostic) Anaphylaxis High 05/21/2017 Banana Edema airway High 01/10/2017 Cat Dander Anaphylaxis High 05/21/2017 Corylus Anaphylaxis High 05/21/2017 Latex Rash Low 01/10/2017 Lac Bovis Other (Please comment) 01/16/2017 Mouth tenderness. Peanut (Diagnostic) Anaphylaxis High 05/21/2017 Prednisone Psych complications 01/17/2017 agitation Sesame Seed (Diagnostic) Anaphylaxis High 05/21/2017 Soy Allergy Anaphylaxis High 01/16/2017 [place] Oil Edema airway High 01/10/2017 Wasp Venom Edema airway High 01/10/2017 documented as of this encounter (statuses as of 08/01/2021) Medications Medication Sig Dispensed Refills Start Date [...] SPRAY) 0.65 % nasal spray Administer 1 [place] into nostril as needed for Congestion. 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 Encounter for supervision of other normal pregna ncy 03/13/2011 09/11/2016 Overview: ICD-10 update of inactive term Acute bronchitis, complicated 02/25/2010 Asthma with severity to be determined 02/13/2017 Overview: ICD-10 update of inactive term documented as of this encounter (statuses as of 08/01/2021) Immunizations Name Administration Dates Next Due COVID-19 mRNA, LNP-s, No Pre serve, 2-Dose Series ([place]) 01/02/2021,12/12/2020 Diptheria/Tetanus (Adult) 02/10/19982007 HEP A - [...] encounter Miscellaneous Notes * Telephone Encounter - Liz Cr RN - 08/01/2021 2:39 PM EST Pt notified that she needs new serums mixed. documented in this encounter Plan of Treatment Upcoming Encounters Date Type Specialty Care Team Description 08/04/2021 Office Visit Allergy & Immunology Beverly Del Angel PA-C [address] [place] [address] Health Maintenance Due Date Last Done Comments Pneumococcal Vaccine: Pediatrics (0 to 5 Years) and At-Risk Patients (6 to 64 Years) (1 of 2 - PPSV23) 1989 PAP SMEAR-EVERY 3 YRS,AGES 21-65 2004 DTaP,Tdap,and Td Vaccines (3 - Td or Tdap) 01/30/2019 01/30/2009, 02/10/1998 *DEPRESSION SCREENING,ANNUAL FOR PTS 12 AND OVER 04/17/2020 COVID-19 Vaccine (3 - Booste r for Pfizer series) 07/05/2021 01/02/2021, 12/12/2020 Influenza Vaccine (FLU shot) Completed , 04/21/2020 MENINGOCOCCAL (MENACTRA/MENVEO) Aged Out No longer eligible b ased on patient's age to complete this topic documented as of this encounter Implants Not on filedocumented as of this encounter Advance Directives Documents on File Type Date Recorded Patient Retail Clerk Expl 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 and were consensually agreed upon. Care Teams Intelligence Senior Sergeant Relationship Specialty Start Date End Date Gab Smith DO [address] [place] [address] [place] [address] PCP - General Family Medicine 11/14/18 documented as of this encounter
--- OUTSIDE RECORDS SUMMARY | 2023-04-16 16:10 | External Medical Summary | Summary of Care ---
Author Name Unknown Organization [place] [address] Care Team Providers Care Parts Assembler Name Role Phone Gab Cuevas DO Primary Care Provider Reason for Visit * Reason Comments Sore Foot injured foot, ball o f foot. change in gait because of pain. causing big toe numbness. wrist pain. Encounter Details Date Type Department Care Team Description 06/15/2021 Office Visit Family Practice [facility] [address] [facility] [address] [facility] [address] [facility] [address] [phone] Contusion of right foot, initial encounter*; Left wrist sprain, initial encounter; Mild intermittent asthma without complication Allergies Active Allergy Reactions Severity Noted Date Comments [place] (Diagnostic) Anaphylaxis High 05/21/2017 Banana Edema airway High 01/10/2017 Cat Dander Anaphylaxis High 05/21/2017 Corylus Anaphylaxis High 05/21/2017 Latex Rash Low 01/10/2017 Lac Bovis Other (Please comment) 01/16/2017 Mouth tenderness. Peanut (Diagnostic) Anaphylaxis High 05/21/2017 Prednisone Psych complications 01/17/2017 agitation Sesame Seed (Diagnostic) Anaphylaxis High 05/21/2017 Soy Allergy Anaphylaxis High 01/16/2017 [place] Oil Edema airway High 01/10/2017 Wasp Venom Edema airway High 01/10/2017 documented as of this encounter (statuses as of 06/20/2021) Medications Medication Sig Dispensed Refills Start Date [...] SPRAY) 0.65 % nasal spray Administer 1 [place] into nostril as needed for Congestion. 0 [...] 02/08/2020 Active EPINEPHrine, anaphylaxis, (AUTOINJECTOR) 0.3 MG/0.3ML SOAJIndications:Al [...] or Wheezing. 18 g 2 06/15/2021 Active Albuterol Sulfate HFA 108 (90 Base) MCG/ACT Inhalation Aerosol SolutionIndication s:Mild intermittent asthma without complication Inhale 2 Puffs by mouth every 4 hours as needed for Cough, Shortness of Breath or Wheezing. 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/2018 Encounter for supervision of other normal pregna ncy 03/13/2011 09/11/2016 Overview: ICD-10 update of inactive term Acute bronchitis, complicated 02/25/2010 Asthma with severity to be determined 02/13/2017 Overview: ICD-10 update of inactive term documented as of this encounter (statuses as of 06/20/2021) Immunizations Name Administration Dates Next Due COVID-19 mRNA, LNP-s, No Pre serve, 2-Dose Series ([employer]) 01/02/2021,12/12/2020 Diptheria/Tetanus (Adult) 02/10/19982007 HEP A - [...] Smoker Smokeless Tobacco: Never Used Alcohol Use Drinks/Week oz/Week Comments No Sex Assigned at Date Recorded Not on file Job Start Date Occupation Industry Not on file Not on file Not on file documented as of this encounter Last Filed Vital Signs Vital Sign Reading Time Taken Comments Blood Pressure 122/78 06/15/2021 3:54 PM EDT Pulse 64 06/15/2021 3:54 PM EDT Temperature 36.9 C (98.5 F) 06/15/2021 3:54 PM ED T Respiratory Rate - - Oxygen Saturation - - Inhaled Oxygen Concentration - - Weight - - Height - - Body Mass Index - - documented in this encounter Progress Notes * Gab Cuevas, - 06/15/2021 4:03 PM EDT Subjective Regina Duncan is a 35 year old female that presents for Sore Foot (injured foot, ball of foot. change in gait because of pain. causing big toe numbness. wrist pain.) HPI: Patient is a 35-year-old female with complaint of right foot pain x1 month. Right foot pain 1 month. Patient states that she struck the bottom of her right foot on threshold. Patient also complains of left wrist pain stiffness. Patient states that she accidentally struck her left wrist approximately 1 month ago. Patient denies joint swelling or rash. Patient denies muscle weakness or numbness. Patient has a history of asthma with intermittent shortness of breath and wheezing. Patient is cough or sputum. Patient denies nasal congestion sore throat earache. Patient denies fatigue fever chills or sweats. Patient denies chest pain palpitations or edema. Patient denies abdominal pain nauseavomiting diarrhea. Review of systems otherwise negative Objective BP 122/78 | Pulse 64 | Temp 36.9 C (98.5 F) (Tympanic) There is no height or weight on file to calculate BMI. BP Readings from Last 3 Encounters: 06/15/21 122/78 03/16/21 130/62 10/21/20 100/68 Wt Readings from Last 3 Encounters: 03/16/21 92.5 kg (204 lb) 10/21/20 88.5 kg (195 lb) 08/22/20 87.9 kg (193 lb 12.8 oz) Physical exam General: alert, healthy and no distress Head: Normocephalic, No masses, lesions, tenderness or abnormalities Eye Exam: PERRLA, EOMI, Conjunctiva are pink and non-injected, sclera clear Ears: External ears normal, Canals clear, TM's Normal Nose: no mucosal erythema, no mucosal edema, no purulent discharge Oropharynx: no exudate, no erythema, lips, buccal mucosa, and tongue normal and mucous membranes are moist Neck: supple, no adenopathy, no bruits, thyroid normal size, non-tender, without nodularity Lymph: no palpable lymphadenopathy Heart: regular rate & rhythm, no murmurs and no gallops Lungs: chest symmetric with normal AP diameter, no chest deformities noted, no chest wall tenderness, lungs clear to auscultation Pulses: carotid=2/4 w/o bruits Abdomen: abdomen soft, non-tender, normal bowel sounds and no masses or organomegaly Back: back symmetric, no curvature, no costovertebral angle tenderness, range of motion is normal Extremities: Tenderness palpation right foot 2nd metatarsal, no gross deformities, no gross deformity or ecchymosis. Tenderness to palpation left wrist, full range of motion, no gross deformities motor strength 5/5 bilateral, negative Tinel's, no edema, no clubbing, no cyanosis Neuro Exam: alert & oriented x 3 with fluent speech, no focal motor/sensory deficits, gait normal, reflexes normal and symmetric Skin: skin color, texture, turgor are normal, no rashes or significant lesions The following labs were reviewed today: None Assessment and plan Contusion of right foot, initial encounter OTC ibuprofen 800 mg q.8 hours p.r.n. pain Ice, rest, elevation p.r.n. - XR Foot 3 or more views Left wrist sprain, initial encounter OTC ibuprofen 8 mg q.8 hours p.r.n. pain Vladislav compression bandage Ice, rest, elevation p.r.n. - XR Wrist 3 or more views Mild intermittent asthma without complication - Albuterol Sulfate HFA; Inhale 2 Puffs by mouth every 4 hours as needed for Cough, Shortness of Breath or Wheezing. Patient counseled regarding asthma action plan Follow up Total time today including reviewing chart before the visit, pertinent labs, imaging reports, face to face time, and documentation time was 20 minutes. The above was discussed and understanding was expressed. Gab Cuevas DO documented in this encounter Plan of Treatment Health Maintenance Due Date Last Done Comments Pneumococcal Vaccine: Pediatrics (0 to 5 Years) and At-Risk Patients (6 to 64 Years) (1 of 2 - PPSV23) 1989 PAP SMEAR-EVERY 3 YRS,AGES 21-65 2004 DTaP,Tdap,and Td Vaccines (3 - Td) 01/30/2019 01/30/2009, 02/10/1998 *DEPRESSION SCREENING,ANNUAL FOR PTS 12 AND OVER 04/17/2020 COVID-19 Vaccine Completed 01/02/2021, 12/12/2020 Influenza Vaccine (FLU shot) Completed , 04/21/2020 MENINGOCOCCAL (MENACTRA/MENVEO) Aged Out No longer eligible b ased on patient's age to complete this topic documented as of this encounter Implants Not on filedocumented as of this encounter Procedures Procedure Name Priority Date/Time Associated Diagnosis Comments XR FOOT 3 OR MORE VIEWS Routine 06/15/2021 4:40 PM EDT Contusion of right foot, initial encounter XR WRIST 3 OR MORE VIEWS Routine 06/15/2021 4:40 PM EDT Left wrist sprain, initial encounter documented in this encounter Results * XR WRIST 3 OR MORE VIEWS (06/15/2021 4:40 PM EDT) Specimen Impressions Performed At IMPRESSION No acute osseous abnormality identified in the left wrist. [facility] Narrative Performed At EXAM XR WRIST 3 OR MORE VIEWS-06/15/2021 4:40 pm HISTORY left wrist sprain TECHNIQUE Three radiographs of the left wrist were obtained. COMPARISON No comparisons FINDINGS No acute fracture visualized. There is focal cortical thickening along the radial side of the distal radial metaphysis, best seen on the oblique view, that is favored to be associated with the physeal scar. Approximately 3 mm of ulnar minus variance is present. The joint spaces are maintained. No appreciable soft tissue swelling. [facility] Procedure Note Interface, Rad In - 06/19/2021 1:09 PM EDT EXAM XR WRIST 3 OR MORE VIEWS-06/15/2021 4:40 pm HISTORY left wrist sprain TECHNIQUE Three radiographs of the left wrist were obtained. COMPARISON No comparisons FINDINGS No acute fracture visualized. There is focal cortical thickening alongthe radial side of the distal radial metaphysis, best seen on the obliqueview, that is favored to be associated with the physeal scar.Approximately 3 mm of ulnar minus variance is present. The joint spacesare maintained. No appreciable soft tissue swelling. IMPRESSION IMPRESSION No acute osseous abnormality identified in the left wrist. Performing Organization Address [facility] de Phone Number [facility] * XR FOOT 3 OR MORE VIEWS (06/15/2021 4:40 PM EDT) Specimen Impressions Performed At [facility] No acute osseous abnormality in the right foot. [facility] Narrative Performed At EXAM XR FOOT 3 OR MORE VIEWS06/15/2021 4:40 pm HISTORY right foot contusion rule fracture 2nd toe COMPARISON No comparisons TECHNIQUE Three radiographs of the right foot were obtained. FINDINGS Anatomic alignment. No evidence of a fracture. Bone mineralization is appropriate. Mild spurring of the 1st MTP joint, without significant joint space narrowing. The other joint spaces of the foot are maintained. No appreciable soft tissue swelling. [facility] Procedure Note Interface, Rad In - 06/19/2021 12:41 PM EDT EXAM XR FOOT 3 OR MORE VIEWS06/15/2021 4:40 pm HISTORY right foot contusion rule fracture 2nd toe COMPARISON No comparisons TECHNIQUE Three radiographs of the right foot were obtained. FINDINGS Anatomic alignment. No evidence of a fracture. Bone mineralization isappropriate. Mild spurring of the 1st MTP joint, without significantjoint space narrowing. The other joint spaces of the foot are maintained.No appreciable soft tissue swelling. IMPRESSION IMPRESSION No acute osseous abnormality in the right foot. 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
--- OUTSIDE RECORDS SUMMARY | 2023-04-16 16:10 | External Medical Summary | Summary of Care ---
Author Name Unknown Organization [place] [address] Care Team Providers Care Helix Coil Winder Name Role Phone Gab Smith DO Primary Care Provider [phone] Reason for Visit * Reason Onset Date Comments Advice 07/05/2021 Encounter Details Date Type Department Care Team Description 07/05/2021 Telephone Allergy/Immunology [facility] [address] [place] [address] Valeriy Milton MD [address] [place] [address] Advice Allergies Active Allergy Reactions Severity Noted Date Comments [place] (Diagnostic) Anaphylaxis High 05/21/2017 Banana Edema airway High 01/10/2017 Cat Dander Anaphylaxis High 05/21/2017 Corylus Anaphylaxis High 05/21/2017 Latex Rash Low 01/10/2017 Lac Bovis Other (Please comment) 01/16/2017 Mouth tenderness. Peanut (Diagnostic) Anaphylaxis High 05/21/2017 Prednisone Psych complications 01/17/2017 agitation Sesame Seed (Diagnostic) Anaphylaxis High 05/21/2017 Soy Allergy Anaphylaxis High 01/16/2017 [place] Oil Edema airway High 01/10/2017 Wasp Venom Edema airway High 01/10/2017 documented as of this encounter (statuses as of 07/05/2021) Medications Medication Sig Dispensed Refills Start Date [...] SPRAY) 0.65 % nasal spray Administer 1 [place] into nostril as needed for Congestion. 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/201708/2018 Encounter for supervision of other normal pregna ncy 03/13/2011 09/11/2016 Overview: ICD-10 update of inactive term Acute bronchitis, complicated 02/25/2010 Asthma with severity to be determined 02/13/2017 Overview: ICD-10 update of inactive term documented as of this encounter (statuses as of 07/05/2021) Immunizations Name Administration Dates Next Due COVID-19 mRNA, LNP-s, No Pre serve, 2-Dose Series ([employer]) 01/02/2021,12/12/2020 Diptheria/Tetanus (Adult) 02/10/19982007 HEP A - [...] encounter Miscellaneous Notes * Telephone Encounter - Beverly Del Angel PA-C - 07/05/2021 1:26 PM EST Noted. Advice appropriate. * Telephone Encounter - Lorene Dhaliwal LPN - 07/05/2021 1:17 PM EST Pt is ill whole house is COVID + advised to follow what PCP advises for isolation once pt is feeling better and out of quarantine can come in for allergy shots and we will make adjustments. * Telephone Encounter - SUSAN Aguilera - 07/05/2021 1:12 PM EST Reason for patient's call: hasn't been able to come for allergy injections due to Covid exposure Caller was transferred to Lorene at the nurse line. 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 Care Teams Helix Coil Winder Relationship Specialty Start Date End Date Gab Smith DO [address] [facility] [place] [address] PCP - General Family Medicine 11/14/18 documented as of this encounter
--- OUTSIDE RECORDS SUMMARY | 2023-04-16 16:10 | External Medical Summary | Summary of Care ---
Author Name Unknown Organization [facility] Address [place] [address] Care Team Providers Care Deli Cook Name Role Phone Gab Smith Primary Care Provider [phone] Reason for Visit * Reason Onset Date Comments Allergy Injection 08/29/2021 Encounter Details Date Type Department Care Team Description 08/29/2021 Immunization/In jection Allergy/Immunology [facility] [address] [place] [address] [facility] [address] [place] [address] Allergic rhinitis, unspecified seasonality, unspecified trigger* Allergies Active Allergy Reactions Severity Noted Date Comments [place] (Diagnostic) Anaphylaxis High 05/21/2017 Banana Edema airway High 01/10/2017 Cat Dander Anaphylaxis High 05/21/2017 Corylus Anaphylaxis High 05/21/2017 Latex Rash Low 01/10/2017 Lac Bovis Other (Please comment) 01/16/2017 Mouth tenderness. Peanut (Diagnostic) Anaphylaxis High 05/21/2017 Prednisone Psych complications 01/17/2017 agitation Sesame Seed (Diagnostic) Anaphylaxis High 05/21/2017 Soy Allergy Anaphylaxis High 01/16/2017 [place] Oil Edema airway High 01/10/2017 Wasp Venom Edema airway High 01/10/2017 documented as of this encounter (statuses as of 08/29/2021) Medications Medication Sig Dispensed Refills Start Date [...] SPRAY) 0.65 % nasal spray Administer 1 [place] into nostril as needed for Congestion. 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/2018 Encounter for supervision of other normal pregna ncy 03/13/2011 09/11/2016 Overview: ICD-10 update of inactive term Acute bronchitis, complicated 02/25/2010 Asthma with severity to be determined 02/13/2017 Overview: ICD-10 update of inactive term documented as of this encounter (statuses as of 08/29/2021) Immunizations Name Administration Dates Next Due COVID-19 mRNA, LNP-s, No Pre serve, 2-Dose Series ([employer] 01/02/2021,12/12/2020 Diptheria/Tetanus (Adult) 02/10/19982007 HEP A [...] Progress Notes * Liz Cr RN - 08/29/2021 4:05 PM EST Pre-injection Questionnaire Patient identified by [...] Documents on File Type Date Recorded Patient Welt Butter Hand Expl 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 Care Teams Deli Cook Relationship Specialty Start Date End Date Gba Smith DO [address] [facility] [place] [address] PCP - General Family Medicine 11/14/18 documented as of this encounter
--- OUTSIDE RECORDS SUMMARY | 2023-04-16 16:10 | External Medical Summary | Summary of Care ---
Author Name Unknown Organization [facility] Address [place] [address] Care Team Providers Care Production Repairer Name Role Phone Gab Smith Primary Care Provider [phone] Reason for Visit * Reason Onset Date Comments Allergy Injection 09/08/2021 Encounter Details Date Type Department Care Team Description 09/08/2021 Immunization/In jection Allergy/Immunology [facility] [address] [place] [address] [facility] [address] [place] [address] Allergic rhinitis, unspecified seasonality, unspecified trigger* Allergies Active Allergy Reactions Severity Noted Date Comments [place] (Diagnostic) Anaphylaxis High 05/21/2017 Banana Edema airway High 01/10/2017 Cat Dander Anaphylaxis High 05/21/2017 Corylus Anaphylaxis High 05/21/2017 Latex Rash Low 01/10/2017 Lac Bovis Other (Please comment) 01/16/2017 Mouth tenderness. Peanut (Diagnostic) Anaphylaxis High 05/21/2017 Prednisone Psych complications 01/17/2017 agitation Sesame Seed (Diagnostic) Anaphylaxis High 05/21/2017 Soy Allergy Anaphylaxis High 01/16/2017 [place] Oil Edema airway High 01/10/2017 Wasp Venom Edema airway High 01/10/2017 documented as of this encounter (statuses as of 09/08/2021) Medications Medication Sig Dispensed Refills Start Date [...] SPRAY) 0.65 % nasal spray Administer 1 [place] into nostril as needed for Congestion. 0 [...] as of this encounter (statuses as of 09/08/2021) Active Problems Problem Noted Date Anxiety 03/28/2017 [...] as of this encounter (statuses as of 09/08/2021) Resolved Problems Problem Noted Date Resolved Date Reaction to allergy injection 05/19/2019 Pollen-food allergy syndrome 03/28/201708/2018 Encounter for supervision of other normal pregna ncy 03/13/2011 09/11/2016 Overview: ICD-10 update of inactive term Acute bronchitis, complicated 02/25/2010 Asthma with severity to be determined 02/13/2017 Overview: ICD-10 update of inactive term documented as of this encounter (statuses as of 09/08/2021) Immunizations Name Administration Dates Next Due COVID-19 mRNA, LNP-s, No Pre serve, 2-Dose Series ([employer]) 01/02/2021,12/12/2020 Diptheria/Tetanus (Adult) 02/10/19982007 HEP A - [...] Progress Notes * Lorene Dhaliwal LPN - 09/08/2021 11:42 AM EST Pre-injection Questionnaire Patient identified by [...] Documents on File Type Date Recorded Patient Extractions Technician Expl 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 and were consensually agreed upon. Care Teams Production Repairer Relationship Specialty Start Date End Date Gab Smith DO [address] [facility] [place] [address] PCP - General Family Medicine 11/14/18 documented as of this encounter
--- OUTSIDE RECORDS SUMMARY | 2023-04-16 16:10 | External Medical Summary | Summary of Care ---
Author Name Unknown Organization [facility] Address [place] [address] Care Team Providers Care Brick Mason Name Role Phone Gab Smith Primary Care Provider [phone] Reason for Visit * Reason Onset Date Comments Allergy Injection 08/17/2021 Encounter Details Date Type Department Care Team Description 08/17/2021 Immunization/In jection Allergy/Immunology [facility] [place] [address] [place] [address] [facility] [address] [place] [address] Allergic rhinitis, unspecified seasonality, unspecified trigger* Allergies Active Allergy Reactions Severity Noted Date Comments [place] (Diagnostic) Anaphylaxis High 05/21/2017 Banana Edema airway High 01/10/2017 Cat Dander Anaphylaxis High 05/21/2017 Corylus Anaphylaxis High 05/21/2017 Latex Rash Low 01/10/2017 Lac Bovis Other (Please comment) 01/16/2017 Mouth tenderness. Peanut (Diagnostic) Anaphylaxis High 05/21/2017 Prednisone Psych complications 01/17/2017 agitation Sesame Seed (Diagnostic) Anaphylaxis High 05/21/2017 Soy Allergy Anaphylaxis High 01/16/2017 [place] Oil Edema airway High 01/10/2017 Wasp Venom Edema airway High 01/10/2017 documented as of this encounter (statuses as of 08/17/2021) Medications Medication Sig Dispensed Refills Start Date [...] SPRAY) 0.65 % nasal spray Administer 1 [place] into nostril as needed for Congestion. 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/28/201708/2018 Encounter for supervision of other normal pregna ncy 03/13/2011 09/11/2016 Overview: ICD-10 update of inactive term Acute bronchitis, complicated 02/25/2010 Asthma with severity to be determined 02/13/2017 Overview: ICD-10 update of inactive term documented as of this encounter (statuses as of 08/17/2021) Immunizations Name Administration Dates Next Due COVID-19 mRNA, LNP-s, No Pre serve, 2-Dose Series ([employer]) 01/02/2021,12/12/2020 Diptheria/Tetanus (Adult) 02/10/19982007 HEP A - [...] Progress Notes * Liz Cr RN - 08/17/2021 3:29 PM EST Pre-injection Questionnaire Patient identified by [...] Documents on File Type Date Recorded 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 Care Teams Brick Mason Relationship Specialty Start Date End Date Gab Smith DO [address] [facility] [place] [address] PCP - General Family Medicine 11/14/18 documented as of this encounter
--- OUTSIDE RECORDS SUMMARY | 2023-04-16 16:10 | External Medical Summary | Summary of Care ---
Author Name Unknown Organization [place] [address] Care Team Providers Care Zigzag Stitcher Name Role Phone Gab Smith Primary Care Provider [phone] Reason for Visit * Reason Onset Date Comments Follow Up follow up regard ing allergies, and allergy injections. lemon, citrius foods and allergy. Allergy Injection 08/04/2021 Encounter Details Date Type Department Care Team Description 08/04/2021 Office Visit Allergy/Immunology Jacek Henrández [place] [address] [place] [address] Beverly Del Angel PA-C [address] [place] [address] Non-seasonal allergic rhinitis due to pollen*; Allergic rhinitis, unspecified seasonality, unspecified trigger; Intermittent asthma with reliever use up to twice per week without complication; Chronic seasonal allergic rhinitis due to pollen; Allergic rhinitis due to dust; Adverse food reaction, subsequent encounter; Peanut allergy Allergies Active Allergy Reactions Severity Noted Date Comments [place] (Diagnostic) Anaphylaxis High 05/21/2017 Banana Edema airway High 01/10/2017 Cat Dander Anaphylaxis High 05/21/2017 Corylus Anaphylaxis High 05/21/2017 Latex Rash Low 01/10/2017 Lac Bovis Other (Please comment) 01/16/2017 Mouth tenderness. Peanut (Diagnostic) Anaphylaxis High 05/21/2017 Prednisone Psych complications 01/17/2017 agitation Sesame Seed (Diagnostic) Anaphylaxis High 05/21/2017 Soy Allergy Anaphylaxis High 01/16/2017 [place] Oil Edema airway High 01/10/2017 Wasp Venom Edema airway High 01/10/2017 documented as of this encounter (statuses as of 08/04/2021) Medications Medication Sig Dispensed Refills Start Date [...] SPRAY) 0.65 % nasal spray Administer 1 [place] into nostril as needed for Congestion. 0 [...] as of this encounter (statuses as of 08/04/2021) Active Problems Problem Noted Date Anxiety 03/28/2017 [...] as of this encounter (statuses as of 08/04/2021) Resolved Problems Problem Noted Date Resolved Date Reaction to allergy injection 05/19/2019 Pollen-food allergy syndrome 03/28/201708/2018 Encounter for supervision of other normal pregna ncy 03/13/2011 09/11/2016 Overview: ICD-10 update of inactive term Acute bronchitis, complicated 02/25/2010 Asthma with severity to be determined 02/13/2017 Overview: ICD-10 update of inactive term documented as of this encounter (statuses as of 08/04/2021) Immunizations Name Administration Dates Next Due COVID-19 mRNA, LNP-s, No Pre serve, 2-Dose Series ([email or web address]) 01/02/2021,12/12/2020 Diptheria/Tetanus (Adult) 02/10/19982007 HEP A - [...] Sign Reading Time Taken Comments Blood Pressure 110/66 08/04/2021 11:13 AM EST Pulse 72 08/04/2021 11:13 AM EST Temperature 36.7 C (98 F) 08/04/2021 11:13 AM EST Respiratory Rate 17 08/04/2021 11:13 AM EST Oxygen Saturation - - Inhaled Oxygen Concentration - - Weight 94.1 kg (207 lb 8 oz) 08/04/2021 11:13 AM EST Height 165.7 cm (5' 5.25") 08/04/2021 11:[address] Body Mass Index 34.27 08/04/2021 11:13 AM EST documented in this encounter Progress Notes * Marilee Bobby LPN - 08/04/2021 11:54 AM EST Pre-injection Questionnaire Patient identified by [...] medical condition? No Today's peak flow - BP 110/66 | Pulse 72 | Temp 36.7 C (98 F) (Tympanic) | Resp 17 | Ht 1.657 m(5' 5.25") | Wt 94.1 kg (207 lb 8 oz) | BMI 34.27 kg/m | BSA 2.08 m *Allergy Injection documentation located in Allergy Injections [facility]PS[facility] Flowsheet* documented in this encounter Nursing Notes * Marilee Bobby LPN - 08/04/2021 11:13 AM EST The pt has been properly identified by confirmation of name and date of . Chief Complaint Patient presents with Follow Up follow up regarding allergies, and allergy injections. lemon, citrius foods and allergy. 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 Care Teams Zigzag Stitcher Relationship Specialty Start Date End Date Gab Smith DO [address] [facility] [place] [address] PCP - General Family Medicine 11/14/18 documented as of this encounter
--- OUTSIDE RECORDS SUMMARY | 2023-04-16 16:10 | External Medical Summary | Summary of Care ---
Author Name Unknown Organization [place] [address] Care Team Providers Care Remarketing Rep Name Role Phone Gab Smith Primary Care Provider [phone] Reason for Visit * Reason Comments Allergy Serum Encounter Details Date Type Department Care Team Description 08/02/2021 Nurse Only Allergy/Immunology [place] [address] [place] [address] [place] Nurse Allergy [place] [address] [place] [address] Allergy Serum Allergies Active Allergy Reactions Severity Noted Date Comments [place] (Diagnostic) Anaphylaxis High 05/21/2017 Banana Edema airway High 01/10/2017 Cat Dander Anaphylaxis High 05/21/2017 Corylus Anaphylaxis High 05/21/2017 Latex Rash Low 01/10/2017 Lac Bovis Other (Please comment) 01/16/2017 Mouth tenderness. Peanut (Diagnostic) Anaphylaxis High 05/21/2017 Prednisone Psych complications 01/17/2017 agitation Sesame Seed (Diagnostic) Anaphylaxis High 05/21/2017 Soy Allergy Anaphylaxis High 01/16/2017 [place] Oil Edema airway High 01/10/2017 Wasp Venom Edema airway High 01/10/2017 documented as of this encounter (statuses as of 08/02/2021) Medications Medication Sig Dispensed Refills Start Date [...] SPRAY) 0.65 % nasal spray Administer 1 [place] into nostril as needed for Congestion. 0 [...] as of this encounter (statuses as of 08/02/2021) Active Problems Problem Noted Date Anxiety 03/28/2017 [...] as of this encounter (statuses as of 08/02/2021) Resolved Problems Problem Noted Date Resolved Date Reaction to allergy injection 05/19/2019 Pollen-food allergy syndrome 03/28/201708/2018 Encounter for supervision of other normal pregna ncy 03/13/2011 09/11/2016 Overview: ICD-10 update of inactive term Acute bronchitis, complicated 02/25/2010 Asthma with severity to be determined 02/13/2017 Overview: ICD-10 update of inactive term documented as of this encounter (statuses as of 08/02/2021) Immunizations Name Administration Dates Next Due COVID-19 [...] on file documented as of this encounter Nursing Notes * Liz Cr RN - 08/02/2021 1:36 PM EST The pt has been properly identified by confirmation of name and date of . AIT serum(s) prepared per Dr Milton's prescription documented in this encounter Plan of Treatment Upcoming Encounters Date Type Specialty Care Team Description 08/04/2021 Office Visit Allergy & Immunology [facility] [address] Scheduled Orders Name Type Priority Associated Diagnoses Orde r Schedule [facility] Procedures Routine Non-seasonal allergic rhinitis due to pollen Ordered: 08/02/2021 Health Maintenance Due Date Last Done Comments [...] Non-seasonal allergic rhinitis due to pollen- Primary documented in this encounter Advance Directives Documents on File Type Date Recorded Patient Trout Farmer Expl 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 Care Teams Remarketing Rep Relationship Specialty Start Date End Date Gab Smith DO [address] [facility] [place] [address] PCP - General Family Medicine 11/14/18 documented as of this encounter
--- OUTSIDE RECORDS SUMMARY | 2023-04-16 16:10 | External Medical Summary | Summary of Care ---
Author Name Unknown Organization [facility] Address [place] [address] Care Team Providers Care Payment Collector Name Role Phone LuisGab dash Primary Care Provider [phone] Reason for Visit * Reason Onset Date Comments Allergy Injection 09/19/2021 Encounter Details Date Type Department Care Team Description 09/19/2021 Immunization/In jection Allergy/Immunology [facility] [address] [place] [address] [place] Nurse Allergy [facility] [address] [place] [address] Allergic rhinitis, unspecified seasonality, unspecified trigger* Allergies Active Allergy Reactions Severity Noted Date Comments [place] (Diagnostic) Anaphylaxis High 05/21/2017 Banana Edema airway High 01/10/2017 Cat Dander Anaphylaxis High 05/21/2017 Corylus Anaphylaxis High 05/21/2017 Latex Rash Low 01/10/2017 Lac Bovis Other (Please comment) 01/16/2017 Mouth tenderness. Peanut (Diagnostic) Anaphylaxis High 05/21/2017 Prednisone Psych complications 01/17/2017 agitation Sesame Seed (Diagnostic) Anaphylaxis High 05/21/2017 Soy Allergy Anaphylaxis High 01/16/2017 [place] Oil Edema airway High 01/10/2017 Wasp Venom Edema airway High 01/10/2017 documented as of this encounter (statuses as of 09/19/2021) Medications Medication Sig Dispensed Refills Start Date [...] SPRAY) 0.65 % nasal spray Administer 1 [place] into nostril as needed for Congestion. 0 [...] as of this encounter (statuses as of 09/19/2021) Active Problems Problem Noted Date Anxiety 03/28/2017 [...] as of this encounter (statuses as of 09/19/2021) Resolved Problems Problem Noted Date Resolved Date Reaction to allergy injection 05/19/2019 Pollen-food allergy syndrome 03/28/201708/2018 Encounter for supervision of other normal pregna ncy 03/13/2011 09/11/2016 Overview: ICD-10 update of inactive term Acute bronchitis, complicated 02/25/2010 Asthma with severity to be determined 02/13/2017 Overview: ICD-10 update of inactive term documented as of this encounter (statuses as of 09/19/2021) Immunizations Name Administration Dates Next Due COVID-19 mRNA, LNP-s, No Pre serve, 2-Dose Series ([employer]) 01/02/2021,12/12/2020 Diptheria/Tetanus (Adult) 02/10/19982007 HEP A - [...] Progress Notes * Liz Cr RN - 09/19/2021 12:01 PM EST Pre-injection Questionnaire Patient identified by [...] Documents on File Type Date Recorded 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 Care Teams Payment Collector Relationship Specialty Start Date End Date Gab Smith DO [address] [facility] [place] [address] PCP - General Family Medicine 11/14/18 documented as of this encounter
--- OUTSIDE RECORDS SUMMARY | 2023-04-16 16:10 | External Medical Summary | Summary of Care ---
Author Name Unknown Organization [place] [address] Care Team Providers Care Web Site Developer Name Role Phone Gab Smith Primary Care Provider [phone] Reason for Visit * Reason Onset Date Comments Follow Up follow up regard ing allergies, and allergy injections. lemon, citrius foods and allergy. Allergy Injection 08/04/2021 Encounter Details Date Type Department Care Team Description 08/04/2021 Office Visit Allergy/Immunology Jacek Hernández [place] [address] [facility] [place] [address] Beverly Del Angel PA-C [address] [facility] [place] [address] Non-seasonal allergic rhinitis due to pollen*; Allergic rhinitis, unspecified seasonality, unspecified trigger; Intermittent asthma with reliever use up to twice per week without complication; Chronic seasonal allergic rhinitis due to pollen; Allergic rhinitis due to dust; Adverse food reaction, subsequent encounter; Peanut allergy Allergies Active Allergy Reactions Severity Noted Date Comments [place] (Diagnostic) Anaphylaxis High 05/21/2017 Banana Edema airway High 01/10/2017 Cat Dander Anaphylaxis High 05/21/2017 Corylus Anaphylaxis High 05/21/2017 Latex Rash Low 01/10/2017 Lac Bovis Other (Please comment) 01/16/2017 Mouth tenderness. Peanut (Diagnostic) Anaphylaxis High 05/21/2017 Prednisone Psych complications 01/17/2017 agitation Sesame Seed (Diagnostic) Anaphylaxis High 05/21/2017 Soy Allergy Anaphylaxis High 01/16/2017 [place] Oil Edema airway High 01/10/2017 Wasp Venom [...] SPRAY) 0.65 % nasal spray Administer 1 [place] into nostril as needed for Congestion. 0 [...] mRNA, LNP-s, No Pre serve, 2-Dose Series ([employer]) 01/02/2021,12/12/2020 Diptheria/Tetanus (Adult) 02/10/19982007 HEP A - [...] documented in this encounter Progress Notes * Beverly Del Angel PA-C - 08/04/2021 12:34 PM EST SUBJECTIVE: Regina was evaluated for follow-up of her allergic rhinitis, intermittent asthma and food allergies. A whole family had COVID a few weeks ago. She had head congestion but not any coughing or wheezing.Her test was negative. She did have an upper respiratory infection before that. She feels like she has recovered from both of these illnesses. She has not been in for her allergy injection over the past few weeks because of these illnesses. Over the summer she had complained of itchy palms after her injections and so we were holding her at a lower maintenance dose. She tolerated that maintenance dose in March, April and May. She has found allergy immunotherapy helpful reducing her symptoms overall. She continues on Claritin in uses Flonase as needed. She is not having frequent or persistent asthma symptoms. She has been avoiding oranges. Her initial reaction was mouth itching with clementines. Even the smell of oranges or maria c gives her a headache her makes her feel sick. She has also been avoiding soy in milk because of some reported mouth itching. 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 Asthma control test obtained on March 16, [...] the survey taken on: 02/08/2020 5:37:22 PM. Asthma Control Test Summary, Results are Patient Reported The overall score is: 22 suggesting: Well Controlled asthma for the survey taken on: 05/07/2019 11:33:47 AM. Immunotherapy: Started: 08/04/18 - 10/09/2019, 03/17/2020- present [...] SPRAY) 0.65 % nasal spray Administer 1 [place] into nostril as needed for Congestion. loratadine [...] needed for Heartburn (or increased allergy symtpoms). EPINEPHrine, anaphylaxis, (AUTOINJECTOR) 0.3 MG/0.3ML SOAJ For a severe reaction: Place orange end against the outer thigh, press firmly, hold in place for 10 seconds and go to the Emergency room. 2 Each 3 Multi-Vitamin Gummies Oral Tablet Chewable Take 1 Tab by mouth daily. Albuterol Sulfate HFA 108 (90 Base) MCG/ACT Inhalation Aerosol Solution Inhale 2 Puffs by mouthevery 4 hours as needed for Cough, Shortness of Breath or Wheezing. 18 g 2 No current facility-administered medications for this visit. Review of patient's allergies indicates: Allergen Reactions [place] (Diagnostic) Anaphylaxis Banana Edema airway Cat Dander Anaphylaxis [place] Tree Pollen [Corylus] Anaphylaxis Peanut (Diagnostic) Anaphylaxis Sesame Seed (Diagnostic) Anaphylaxis Soy Allergy Anaphylaxis [place] Oil Edema airway Wasp Venom Edema airway [...] floor and heart hardwood. 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 Blood Pressure 110/66 | Pulse 72 | Temperature 36.7 C (98 F) (Tympanic) | Respiration 17 | Height 1.657 m (5' 5.25") | Weight 94.1 kg (207 lb 8 oz) | Body Mass Index 34.27 kg/m | Body Surface Area 2.08 m PHYSICAL EXAM: No Acute Distress: Conjunctiva: [...] Nut IgE <0.35 kU/L 0.61 (Class 1) [place] Nut IgE <0.35 kU/L <0.20 [place] IgE <0.35 kU/L 0.59 (Class 1) Pecan Nut IgE <0.35 kU/L <0.20 Cashew Nut IgE <0.35 kU/L <0.20 Sesame Seed IgE <0.35 kU/L 0.36 (Class 1) [place] Seed IgE <0.35 kU/L 0.28 [place] Nut IgE <0.35 kU/L <0.20 ANTHONY H [...] Birch IgE <0.35 kU/L 31.00 (Class 4) [place] IgE <0.35 kU/L 1.00 (Class 2) Component [...] with essentially normal spirometry. ASSESSMENT: ICD-10-CM 1. Non-seasonal allergic rhinitis due to pollen J30.1 2. Allergic rhinitis, unspecified seasonality, unspecified trigger J30.9 3. Intermittent asthma with reliever use up to twice per week without complication J45.20 4. Chronic seasonal allergic rhinitis due to pollen J30.1 5. Allergic rhinitis due to dust J30.89 6. Adverse food reaction, subsequent encounter T78.1XXD 7. Peanut allergy Z91.010 PLAN: Avoidance measures regarding pollens, molds, dust mites and animal danders should be continued. She started immunotherapy in 2017 but it was interrupted by the COVID pandemic. She resumed injections in February of 2020 and was almost at the maintenance dose. Then in February of 2021 she complained of palm itching after her allergy injections so we reduced her dose and build her more slowly. After this she tolerated her injections. She has not been in for an injection for few weeks because of illnesses. We will reduce her dose and resume regular build up. These have been beneficial reducing her symptoms. She [...] symptoms she will add in Flonase as needed. In case of acute symptoms she will always add in Benadryl 50 mg immediately in every 4-6 hours as needed. If she were to go on to life- threatening throat tightness, difficulty swallowing, shortness of breath [...] avoid fresh oranges and citrus fruit. She may cautiously reintroduce milk and soy in her diet since her last serum IgE determinations were negative. She will continue to avoid them and use emergency Benadryl/Epipen protocol in case of accidental ingestion. There is a remote history in childhood of reaction to insect stings. Once her other problems are better controlled, venom testing recommended to see if there is still current significant IgE mediatedvenom sensitivity remaining. At the present time she will avoid insect stings and if stung follow the same Benadryl/EpiPen protocol that she uses for her food allergies. Follow Up: Return in 6 months (on 02/02/2022) for Return in one week for allergy injection. | For: Return in one week for allergy injection | Check-out note: Return in one week for allergy injection Beverly Del Angel, Physician Strategic Communications Specialist Allergy and Immunology Jacek Blanc The patient is being seen in follow up for the treatment of J30.1 Non-seasonal allergic rhinitis due to pollen (primary encounter diagnosis) J30.9 Allergic rhinitis, unspecified seasonality, unspecified trigger J45.20 Intermittent asthma with reliever use up to twice per week without complication J30.1 Chronic seasonal allergic rhinitis due to pollen J30.89 Allergic rhinitis due to dust T78.1XXD Adverse food reaction, subsequent encounter Z91.010 Peanut allergy incident to the plan of care established by Dr. Valeriy Milton. Type of Supervision: Direct (This note was completed using the dictation program Fluency Direct. 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 Care Teams Web Site Developer Relationship Specialty Start Date End Date Gab Smith DO [address] [facility] [place] [address] PCP - General Family Medicine 11/14/18 documented as of this encounter
--- OUTSIDE RECORDS SUMMARY | 2023-04-16 16:10 | External Medical Summary | Summary of Care ---
Author Name Unknown Organization [place] [address] Care Team Providers Care Car Sealer Name Role Phone Gab Smith DO Primary Care Provider Reason for Visit * Reason Onset Date Comments Advice 06/14/2021 TDAP Encounter Details Date Type Department Care Team Description 06/14/2021 Telephone Family Practice [facility] [address] [facility] [address] Gab Smith DO [address] [facility] [address] [phone] Advice (TDAP) Allergies Active Allergy Reactions Severity Noted Date Comments [place] (Diagnostic) Anaphylaxis High 05/21/2017 Banana Edema airway High 01/10/2017 Cat Dander Anaphylaxis High 05/21/2017 Corylus Anaphylaxis High 05/21/2017 Latex Rash Low 01/10/2017 Lac Bovis Other (Please comment) 01/16/2017 Mouth tenderness. Peanut (Diagnostic) Anaphylaxis High 05/21/2017 Prednisone Psych complications 01/17/2017 agitation Sesame Seed (Diagnostic) Anaphylaxis High 05/21/2017 Soy Allergy Anaphylaxis High 01/16/2017 [place] Oil Edema airway High 01/10/2017 Wasp Venom Edema airway High 01/10/2017 documented as of this encounter (statuses as of 06/15/2021) Medications Medication Sig Dispensed Refills Start Date [...] SPRAY) 0.65 % nasal spray Administer 1 [place] into nostril as needed for Congestion. 0 [...] Breath or Wheezing. 18 g 2 11/24/2020 Active documented as of this encounter (statuses as of 06/15/2021) Active Problems Problem Noted Date Anxiety 03/28/2017 [...] as of this encounter (statuses as of 06/15/2021) Resolved Problems Problem Noted Date Resolved Date Reaction to allergy injection 05/19/2019 Pollen-food allergy syndrome 03/28/201708/2018 Encounter for supervision of other normal pregna ncy 03/13/2011 09/11/2016 Overview: ICD-10 update of inactive term Acute bronchitis, complicated 02/25/2010 Asthma with severity to be determined 02/13/2017 Overview: ICD-10 update of inactive term documented as of this encounter (statuses as of 06/15/2021) Immunizations Name Administration Dates Next Due COVID-19 [...] encounter Miscellaneous Notes * Telephone Encounter - Yesi Lr OSA - 06/15/2021 12:52 PM EDT Already scheduled for today with Dr Smith * Telephone Encounter - Liyah Hyde LPN - 06/15/2021 12:49 PM EDT Yes, she is. Ok to schedule [place] appt. tdap can be ordered in a smartset. * Telephone Encounter - Connie Clarke OSA - 06/14/2021 10:40 AM EDT Pt called and is asking if she is due for a TDAP shot. documented in this encounter Plan of Treatment Upcoming Encounters Date Type Specialty Care Team Description 06/15/2021 Office Visit Family Medicine Gab Smith, [address] [facility] [place] [address] [phone] Health Maintenance Due Date Last Done Comments [...] Documents on File Type Date Recorded Patient Food Services Manager Expl 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
--- OUTSIDE RECORDS SUMMARY | 2023-04-16 16:10 | External Medical Summary | Summary of Care ---
Author Name Unknown Organization [place] [address] Care Team Providers Care Quarter Backer Name Role Phone Gab Smith DO Primary Care Provider Reason for Visit * Reason Onset Date Comments Advice 07/11/2021 Covid questions Encounter Details Date Type Department Care Team Description 07/11/2021 Telephone Family Practice [facility] [address] [facility] [place] [address] Gab Smith DO [address] [facility] [place] [address] Advice (Covid questions) Allergies Active Allergy Reactions Severity Noted Date Comments [place] (Diagnostic) Anaphylaxis High 05/21/2017 Banana Edema airway High 01/10/2017 Cat Dander Anaphylaxis High 05/21/2017 Corylus Anaphylaxis High 05/21/2017 Latex Rash Low 01/10/2017 Lac Bovis Other (Please comment) 01/16/2017 Mouth tenderness. Peanut (Diagnostic) Anaphylaxis High 05/21/2017 Prednisone Psych complications 01/17/2017 agitation Sesame Seed (Diagnostic) Anaphylaxis High 05/21/2017 Soy Allergy Anaphylaxis High 01/16/2017 [place] Oil Edema airway High 01/10/2017 Wasp Venom Edema airway High 01/10/2017 documented as of this encounter (statuses as of 07/11/2021) Medications Medication Sig Dispensed Refills Start Date [...] SPRAY) 0.65 % nasal spray Administer 1 [place] into nostril as needed for Congestion. 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 Advise continued supportive care. Tylenol OTC as directed p.r.n. fever pain. Mucinex DM as directed p.r.n. cough congestion. Advise call return to office if symptoms persist or worsen. * Telephone Encounter - SUSAN Fuller - 07/11/2021 2:53 PM EST Patient called in stating that everyone in her house has tested positive for covid. She has taken 2home tests and were both negative. She has all of the symptoms and seems to be getting worse. She has a lot of head and now chest congestion. She is asthmatic and is questioning if she should start taking her duoneb, get retested or have antibodies done. She would like a call back to discuss. 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 Care Teams Quarter Backer Relationship Specialty Start Date End Date Gab Smith DO [address] [facility] [place] [address] PCP - General Family Medicine 11/14/18 documented as of this encounter
--- OUTSIDE RECORDS SUMMARY | 2023-04-16 16:11 | External Medical Summary ---
Author Name Unknown Address Unknown Organization K01:LABORATORY [facility] - [address] [facility] [address] Laboratory Report Ordering Provider Test Date Status MANNY PEARCE 03/13/2021 16:24:53 Final Observation Date Value Abnormality Reference (Units ) Status Peanut IgE 03/13/2021 16:24:53 0.23 <0.35 (kU/L) Final [place] Nut IgE 03/13/2021 16:24:53 0.61 <0.35 (kU/L) Final [place] Nut IgE 03/13/2021 16:24:53 <0.20 <0.35 (kU/L) Final [place] Nut IgE 03/13/2021 16:24:53 0.59 <0.35 (kU/L) Final Pecan or [place] Nut IgE 03/13/2021 16:24:53 <0.20 <0.35 (kU/L) Final [place]hew Nut IgE 03/13/2021 16:24:53 <0.20 <0.35 (kU/L) Final Sesame Seed IgE 03/13/2021 16:24:53 0.36 <0.35 (kU/L) Final [place] Seed IgE Ab [Units/volume] in Serum 03/13/2021 16:24:53 0.28 <0.35 (kU/L) Final [place] IgE Ab [Units/volume] in Serum 03/13/2021 16:24:53 <0.20 <0.35 (kU/L) Final Performing Location LABORATORY [facility] - [address] [place] [address]
--- OUTSIDE RECORDS SUMMARY | 2023-04-16 16:11 | External Medical Summary ---
Author Name Unknown Address Unknown Organization K01:LABORATORY C - [address] [place] [address] Laboratory Report Ordering Provider Test Date Status LAKESHIA PEARCEJULIO 03/13/2021 16:24:52 Final Observation Date Value Abnormality Reference (Units ) Status IgE 03/13/2021 16:24:52 96.9 Above high normal 0. 0-87.0 (kU/L) Final Performing Location LABORATORY [facility] - [address] [place] [address]
--- OUTSIDE RECORDS SUMMARY | 2023-04-16 16:11 | External Medical Summary | Summary of Care ---
Author Name Unknown Organization [place] [address] Care Team Providers Care Bottle Filler Name Role Phone Gab Smith Primary Care Provider [phone] Reason for Visit * Reason Onset Date Comments Update 04/17/2021 Site reaction Encounter Details Date Type Department Care Team Description 04/17/2021 Telephone Allergy/Immunology [facility] [place] [address] [place] [address] Beverly Del Angel PA-C [address] [place] [address] [phone] Update (Site reaction) Allergies Active Allergy Reactions Severity Noted Date Comments [place] (Diagnostic) Anaphylaxis High 05/21/2017 Banana Edema airway High 01/10/2017 Cat Dander Anaphylaxis High 05/21/2017 Corylus Anaphylaxis High 05/21/2017 Latex Rash Low 01/10/2017 Lac Bovis Other (Please comment) 01/16/2017 Mouth tenderness. Peanut (Diagnostic) Anaphylaxis High 05/21/2017 Prednisone Psych complications 01/17/2017 agitation Sesame Seed (Diagnostic) Anaphylaxis High 05/21/2017 Soy Allergy Anaphylaxis High 01/16/2017 [place] Oil Edema airway High 01/10/2017 Wasp Venom Edema airway High 01/10/2017 documented as of this encounter (statuses as of 04/17/2021) Medications Medication Sig Dispensed Refills Start Date [...] SPRAY) 0.65 % nasal spray Administer 1 [place] into nostril as needed for Congestion. 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 Encounter for supervision of other normal pregna ncy 03/13/2011 09/11/2016 Overview: ICD-10 update of inactive term Acute bronchitis, complicated 02/25/2010 Asthma with severity to be determined 02/13/2017 Overview: ICD-10 update of inactive term documented as of this encounter (statuses as of 04/17/2021) Immunizations Name Administration Dates Next Due COVID-19 mRNA, LNP-s, No Pre serve, 2-Dose Series ([employer]) 01/02/2021,12/12/2020 Diptheria/Tetanus (Adult) 02/10/19982007 HEP A - Hepatitis A (Ped/Adole, 2-18 Yrs) 1999,06/12/1999 HEP B - Hepatitis B (Adole/High Risk Ped, 11-15 yrs 06/12/1999 07/13/1999 Hepatitis B, 0-19 yrs 04/24/2000 05/24/2000 MMR - Measles/Mumps/Rubella Vaccine 03/08/1995 PPD 11/21/2007,06/04/2001 Seasonal Influenza, Quadriva lent, No Preserve, 6 Mons & Above, IM 04/21/2020 TB Felicitas Test 07/01/1998 TDAP (age 10 [...] Telephone Encounter - Lorene Dhaliwal LPN - 04/17/2021 12:59 PM EDT This has been fully explained to patient who expressed understanding * Telephone Encounter - Beverly Del Angel PA-C - 04/17/2021 11:36 AM EDT This is the dose that she reported palm itching with in January. Reduce her to Red 0.05ml every 2 weeks until end of April due to increased weed pollen. We will reassess at the end of April. * Telephone Encounter - Lorene Dhaliwal LPN - 04/17/2021 11:23 AM EDT Ok to have pt take Benadryl every 4-6 hours until rash/swelling subsides, ice to area? What do we need to do for her shot schedule and dose? * Telephone Encounter - Tamika Mahmood OSA - 04/17/2021 11:12 AM EDT Pt calling stating that she reacted at the injection site on Saturday, 04/14 approx 10 hrs later. Arms swelled to elbow, w/itch and began w/slight jay at neck. Pt increased claritin and took benadryl to subside reactions. Continued through the weekend and pt continued w/increased dosing. Today still slightly there - took extra claritin, asking if should continue w/benadryl. Please advise on cell. Thank you. documented in this encounter Plan of Treatment Health Maintenance Due Date Last Done Comments Pneumococcal Vaccine: Pediatrics (0 to 5 Years) and At-Risk Patients (6 to 64 Years) (1 of 2 - PPSV23) 1989 PAP SMEAR-EVERY 3 YRS,AGES 21-65 2004 DTaP,Tdap,and Td Vaccines (3 - Td) 01/30/2019 01/30/2009, 02/10/1998 *DEPRESSION SCREENING,ANNUAL FOR PTS 12 AND OVER 04/17/2020 Influenza Vaccine (FLU shot) (#1) 2021 04/21/2020 COVID-19 Vaccine Completed 01/02/2021, 12/12/2020 MENINGOCOCCAL (MENACTRA/MENVEO) Aged Out No longer eligible b ased on patient's age to complete this topic documented as of this encounter Implants Not on filedocumented as of this encounter Advance Directives Documents on File Type Date Recorded Patient Manager Film Expl 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
--- OUTSIDE RECORDS SUMMARY | 2023-04-16 16:11 | External Medical Summary | Summary of Care ---
Author Name Unknown Organization [place] [address] Care Team Providers Care Lang Path Therapist Name Role Phone Gab Smith Primary Care Provider [phone] Reason for Visit * Reason Onset Date Comments Test Results 03/20/2021 Encounter Details Date Type Department Care Team Description 03/20/2021 Telephone Allergy/Immunology [facility] [place] [address] [place] [address] Beverly Del Angel PA-C [address] [place] [address] [phone] Test Results Allergies Active Allergy Reactions Severity Noted Date Comments [place] (Diagnostic) Anaphylaxis High 05/21/2017 Banana Edema airway High 01/10/2017 Cat Dander Anaphylaxis High 05/21/2017 Corylus Anaphylaxis High 05/21/2017 Latex Rash Low 01/10/2017 Lac Bovis Other (Please comment) 01/16/2017 Mouth tenderness. Peanut (Diagnostic) Anaphylaxis High 05/21/2017 Prednisone Psych complications 01/17/2017 agitation Sesame Seed (Diagnostic) Anaphylaxis High 05/21/2017 Soy Allergy Anaphylaxis High 01/16/2017 [place] Oil Edema airway High 01/10/2017 Wasp Venom Edema airway High 01/10/2017 documented as of this encounter (statuses as of 03/20/2021) Medications Medication Sig Dispensed Refills Start Date [...] SPRAY) 0.65 % nasal spray Administer 1 [place] into nostril as needed for Congestion. 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 Encounter for supervision of other normal pregna ncy 03/13/2011 09/11/2016 Overview: ICD-10 update of inactive term Acute bronchitis, complicated 02/25/2010 Asthma with severity to be determined 02/13/2017 Overview: ICD-10 update of inactive term documented as of this encounter (statuses as of 03/20/2021) Immunizations Name Administration Dates Next Due COVID-19 mRNA, LNP-s, No Pre serve, 2-Dose Series ([employer] [place]) 01/02/2021,12/12/2020 Diptheria/Tetanus (Adult) 02/10/19982007 HEP A - [...] encounter Miscellaneous Notes * Telephone Encounter - Marilee Bobby LPN - 03/20/2021 2:08 PM EDT Outgoing call, verified name and with patient. Pt has been informed of below message and verbalized understanding. * Telephone Encounter - Beverly Del Angel PA-C - 03/20/2021 2:02 PM EDT Ok, noted. Have her continue to avoid all dairy we can discuss in detail at her next visit. * Telephone Encounter - Marilee Bobby LPN - 03/20/2021 1:36 PM EDT She has eaten yogurts and has the same problems with her itchy mouth, ect she reported when I talked to her earlier. * Telephone Encounter - Beverly Del Angel PA-C - 03/20/2021 1:32 PM EDT Lactose free milk just removes and enzyme lactose from the milk. Milk allergies involve the milk protein which lactose free milk still has. Does she eat any dairy products? Cheese, yogurt? * Telephone Encounter - Marilee Bobby LPN - 03/20/2021 1:20 PM EDT Outgoing call, verified name and with patient. Pt has been informed of below message and verbalized understanding. Pt wondering if she can have the lactose free milk? Instructed to avoid things until the appointment to further discuss. 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 A high levelto birch pollen also supports this. Her levels to milk, soy, peanuts and tree nuts are negative or low positive. She also has a low positive to oranges. Continue to avoid all these and we can discuss these results in detail at her next visit. documented in this encounter Plan of Treatment [...] Documents on File Type Date Recorded Patient Erp Manager Expl 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
--- OUTSIDE RECORDS SUMMARY | 2023-04-16 16:11 | External Medical Summary | Summary of Care ---
Author Name Unknown Organization [facility] Address [place] [address] Care Team Providers Care Kier Tender Name Role Phone Gab Smith Primary Care Provider Reason for Visit * Reason Onset Date Comments Allergy Injection 06/09/2021 Encounter Details Date Type Department Care Team Description 06/09/2021 Immunization/In jection Allergy/Immunology [facility] [place] [address] [place] [address] Betty Nurse Allergy [facility] [address] [place] [address] [phone] Allergic rhinitis, unspecified seasonality, unspecified trigger* Allergies Active Allergy Reactions Severity Noted Date Comments [place] (Diagnostic) Anaphylaxis High 05/21/2017 Banana Edema airway High 01/10/2017 Cat Dander Anaphylaxis High 05/21/2017 Corylus Anaphylaxis High 05/21/2017 Latex Rash Low 01/10/2017 Lac Bovis Other (Please comment) 01/16/2017 Mouth tenderness. Peanut (Diagnostic) Anaphylaxis High 05/21/2017 Prednisone Psych complications 01/17/2017 agitation Sesame Seed (Diagnostic) Anaphylaxis High 05/21/2017 Soy Allergy Anaphylaxis High 01/16/2017 [place] Oil Edema airway High 01/10/2017 Wasp Venom Edema airway High 01/10/2017 documented as of this encounter (statuses as of 06/09/2021) Medications Medication Sig Dispensed Refills Start Date [...] SPRAY) 0.65 % nasal spray Administer 1 [place] into nostril as needed for Congestion. 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 Encounter for supervision of other normal pregna ncy 03/13/2011 09/11/2016 Overview: ICD-10 update of inactive term Acute bronchitis, complicated 02/25/2010 Asthma with severity to be determined 02/13/2017 Overview: ICD-10 update of inactive term documented as of this encounter (statuses as of 06/09/2021) Immunizations Name Administration Dates Next Due COVID-19 mRNA, LNP-s, No Pre serve, 2-Dose Series ([employer]ysophic) 01/02/2021,12/12/2020 Diptheria/Tetanus (Adult) 02/10/19982007 HEP A - [...] Progress Notes * Lorene Dhaliwal LPN - 06/09/2021 12:39 PM EDT Pre-injection Questionnaire Patient identified by [...] Documents on File Type Date Recorded 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
--- OUTSIDE RECORDS SUMMARY | 2023-04-16 16:11 | External Medical Summary | Summary of Care ---
Author Name Unknown Organization [facility] Address [place] [address] Care Team Providers Care Design Engineering Specialist Name Role Phone Gab Smith Primary Care Provider Reason for Visit * Reason Onset Date Comments Allergy Injection 04/14/2021 Encounter Details Date Type Department Care Team Description 04/14/2021 Immunization/In jection Allergy/Immunology [facility] [place] [address] [place] [address] Betty Nurse Allergy [facility] [address] [place] [address] [phone] Allergic rhinitis, unspecified seasonality, unspecified trigger* Allergies Active Allergy Reactions Severity Noted Date Comments Ages [place] (Diagnostic) Anaphylaxis High 05/21/2017 Banana Edema airway High 01/10/2017 Cat Dander Anaphylaxis High 05/21/2017 Corylus Anaphylaxis High 05/21/2017 Latex Rash Low 01/10/2017 Lac Bovis Other (Please comment) 01/16/2017 Mouth tenderness. Peanut (Diagnostic) Anaphylaxis High 05/21/2017 Prednisone Psych complications 01/17/2017 agitation Sesame Seed (Diagnostic) Anaphylaxis High 05/21/2017 Soy Allergy Anaphylaxis High 01/16/2017 [place] Oil Edema airway High 01/10/2017 Wasp Venom Edema airway High 01/10/2017 documented as of this encounter (statuses as of 04/14/2021) Medications Medication Sig Dispensed Refills Start Date [...] SPRAY) 0.65 % nasal spray Administer 1 [place] into nostril as needed for Congestion. 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 Encounter for supervision of other normal pregna ncy 03/13/2011 09/11/2016 Overview: ICD-10 update of inactive term Acute bronchitis, complicated 02/25/2010 Asthma with severity to be determined 02/13/2017 Overview: ICD-10 update of inactive term documented as of this encounter (statuses as of 04/14/2021) Immunizations Name Administration Dates Next Due COVID-19 mRNA, LNP-s, No Pre serve, 2-Dose Series ([employer]ruction [employer]) 01/02/2021,12/12/2020 Diptheria/Tetanus (Adult) 02/10/19982007 HEP A - [...] Progress Notes * Lorene Dhaliwal LPN - 04/14/2021 11:40 AM EDT Pre-injection Questionnaire Patient identified by [...] Documents on File Type Date Recorded Patient Client Service Representative Expl 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
--- OUTSIDE RECORDS SUMMARY | 2023-04-16 16:11 | External Medical Summary | Summary of Care ---
Author Name Unknown Organization [facility] Address [place] [address] Care Team Providers Care Business Services Manager Name Role Phone Gab Smith Primary Care Provider [phone] Reason for Visit * Reason Onset Date Comments Allergy Injection 05/26/2021 Encounter Details Date Type Department Care Team Description 05/26/2021 Immunization/In jection Allergy/Immunology [facility] [place] [address] [place] [address] [address] [facility] [address] [place] [address] [phone] Allergic rhinitis, unspecified seasonality, unspecified trigger* Allergies Active Allergy Reactions Severity Noted Date Comments [place] (Diagnostic) Anaphylaxis High 05/21/2017 Banana Edema airway High 01/10/2017 Cat Dander Anaphylaxis High 05/21/2017 Corylus Anaphylaxis High 05/21/2017 Latex Rash Low 01/10/2017 Lac Bovis Other (Please comment) 01/16/2017 Mouth tenderness. Peanut (Diagnostic) Anaphylaxis High 05/21/2017 Prednisone Psych complications 01/17/2017 agitation Sesame Seed (Diagnostic) Anaphylaxis High 05/21/2017 Soy Allergy Anaphylaxis High 01/16/2017 [place] Oil Edema airway High 01/10/2017 Wasp Venom Edema airway High 01/10/2017 documented as of this encounter (statuses as of 05/26/2021) Medications Medication Sig Dispensed Refills Start Date [...] SPRAY) 0.65 % nasal spray Administer 1 [place] into nostril as needed for Congestion. 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 Encounter for supervision of other normal pregna ncy 03/13/2011 09/11/2016 Overview: ICD-10 update of inactive term Acute bronchitis, complicated 02/25/2010 Asthma with severity to be determined 02/13/2017 Overview: ICD-10 update of inactive term documented as of this encounter (statuses as of 05/26/2021) Immunizations Name Administration Dates Next Due COVID-19 mRNA, LNP-s, No Pre serve, 2-Dose Series ([employer]) 01/02/2021,12/12/2020 Diptheria/Tetanus (Adult) 02/10/19982007 HEP A - [...] Progress Notes * Liz Cr RN - 05/26/2021 12:17 PM EDT Pre-injection Questionnaire Patient identified by [...] Documents on File Type Date Recorded 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
--- OUTSIDE RECORDS SUMMARY | 2023-04-16 16:11 | External Medical Summary ---
Author Name Unknown Address Unknown Organization : Laboratory Report Ordering Provider Test Date Status MANNY PEARCE 03/13/2021 16:24:52 Final Observation Date Value Abnormality Reference (Units ) Status Peanut recombinant (Dinesh h) 2 IgE Ab [Units/volume] in Serum 03/13/2021 16:24:52 <0.10 <0.10 (kU/L) Final Peanut recombinant (Dinesh h) 1 IgE Ab [Units/volume] in Serum 03/13/2021 16:24:52 <0.10 <0.10 (kU/L) Final Peanut recombinant (Dinesh h) 3 IgE Ab [Units/volume] in Serum 03/13/2021 16:24:52 <0.10 <0.10 (kU/L) Final Peanut recombinant (Dinesh h) 9 IgE Ab [Units/volume] in Serum 03/13/2021 16:24:52 <0.10 <0.10 (kU/L) Final Peanut recombinant (Dinesh h) 8 IgE Ab [Units/volume] in Serum 03/13/2021 16:24:52 3.13 Above high normal <0.10 (kU/L) Final Performing Location
--- OUTSIDE RECORDS SUMMARY | 2023-04-16 16:11 | External Medical Summary ---
Author Name Unknown Address Unknown Organization K01:[facility] [place] [address] [facility] [address] Laboratory Report Ordering Provider Test Date Status LAKESHIA PEARCEJULIO 03/13/2021 16:24:53 Final Observation Date Value Abnormality Reference (Units ) Status [place] IgE 03/13/2021 16:24:53 <0.20 <0.35 (k U/L) Final Performing Location [facility] [place] [address] [facility] [address]
--- OUTSIDE RECORDS SUMMARY | 2023-04-16 16:11 | External Medical Summary ---
Author Name Unknown Address Unknown Organization K01:LABORATORY [facility] - [address] [place] [address] Laboratory Report Ordering Provider Test Date Status MANNY PEARCE 03/13/2021 16:24:53 Final Observation Date Value Abnormality Reference (Units ) Status [place] IgE 03/13/2021 16:24:53 1.00 <0.35 (kU /L) Final Performing Location LABORATORY [facility] - [address] [place] [address]
--- OUTSIDE RECORDS SUMMARY | 2023-04-16 16:11 | External Medical Summary | Summary of Care ---
Author Name Unknown Organization [facility] Address [place] [address] Care Team Providers Care Photographers' Model Name Role Phone Gab Smith Primary Care Provider Reason for Visit * Reason Onset Date Comments Allergy Injection 04/28/2021 Encounter Details Date Type Department Care Team Description 04/28/2021 Immunization/In jection Allergy/Immunology [facility] [address] [place] [address] Betty Nurse Allergy [facility] [address] [place] [address] [phone] Allergic rhinitis, unspecified seasonality, unspecified trigger* Allergies Active Allergy Reactions Severity Noted Date Comments [place]olia (Diagnostic) Anaphylaxis High 05/21/2017 Banana Edema airway High 01/10/2017 Cat Dander Anaphylaxis High 05/21/2017 Corylus Anaphylaxis High 05/21/2017 Latex Rash Low 01/10/2017 Lac Bovis Other (Please comment) 01/16/2017 Mouth tenderness. Peanut (Diagnostic) Anaphylaxis High 05/21/2017 Prednisone Psych complications 01/17/2017 agitation Sesame Seed (Diagnostic) Anaphylaxis High 05/21/2017 Soy Allergy Anaphylaxis High 01/16/2017 [place] Oil Edema airway High 01/10/2017 Wasp Venom Edema airway High 01/10/2017 documented as of this encounter (statuses as of 04/28/2021) Medications Medication Sig Dispensed Refills Start Date [...] SPRAY) 0.65 % nasal spray Administer 1 [place] into nostril as needed for Congestion. 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/2018 Encounter for supervision of other normal pregna ncy 03/13/2011 09/11/2016 Overview: ICD-10 update of inactive term Acute bronchitis, complicated 02/25/2010 Asthma with severity to be determined 02/13/2017 Overview: ICD-10 update of inactive term documented as of this encounter (statuses as of 04/28/2021) Immunizations Name Administration Dates Next Due COVID-19 mRNA, LNP-s, No Pre serve, 2-Dose Series ([employer]) 01/02/2021,12/12/2020 Diptheria/Tetanus (Adult) 02/10/19982007 HEP A - [...] Progress Notes * Lorene Dhaliwal LPN - 04/28/2021 12:49 PM EDT Pre-injection Questionnaire Patient identified by [...] swelling that persisted in the next day? Yes, see telephone encounter 5. 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
--- OUTSIDE RECORDS SUMMARY | 2023-04-16 16:11 | External Medical Summary | Summary of Care ---
Author Name Unknown Organization [place] [address] Care Team Providers Care Slip Laster Name Role Phone Gab Smith Primary Care Provider Reason for Visit * Reason Onset Date Comments Allergy Injection 05/12/2021 Medication Administration 05/12/2021 Flu an d/or Pneumo Inj Encounter Details Date Type Department Care Team Description 05/12/2021 Immunization/In jection Allergy/Immunology [facility] [address] [place] [address] Betty, Nurse Allergy [facility] [address] [place] [address] [phone] Allergic rhinitis, unspecified seasonality, unspecified trigger*; Need for prophylactic vaccination and inoculation against influenza Allergies Active Allergy Reactions Severity Noted Date Comments [place] (Diagnostic) Anaphylaxis High 05/21/2017 Banana Edema airway High 01/10/2017 Cat Dander Anaphylaxis High 05/21/2017 Corylus Anaphylaxis High 05/21/2017 Latex Rash Low 01/10/2017 Lac Bovis Other (Please comment) 01/16/2017 Mouth tenderness. Peanut (Diagnostic) Anaphylaxis High 05/21/2017 Prednisone Psych complications 01/17/2017 agitation Sesame Seed (Diagnostic) Anaphylaxis High 05/21/2017 Soy Allergy Anaphylaxis High 01/16/2017 [place] Oil Edema airway High 01/10/2017 Wasp Venom Edema airway High 01/10/2017 documented as of this encounter (statuses as of 05/12/2021) Medications Medication Sig Dispensed Refills Start Date [...] SPRAY) 0.65 % nasal spray Administer 1 [place] into nostril as needed for Congestion. 0 [...] as of this encounter (statuses as of 05/12/2021) Active Problems Problem Noted Date Anxiety 03/28/2017 [...] as of this encounter (statuses as of 05/12/2021) Resolved Problems Problem Noted Date Resolved Date Reaction to allergy injection 05/19/2019 Pollen-food allergy syndrome 03/28/201708/2018 Encounter for supervision of other normal pregna ncy 03/13/2011 09/11/2016 Overview: ICD-10 update of inactive term Acute bronchitis, complicated 02/25/2010 Asthma with severity to be determined 02/13/2017 Overview: ICD-10 update of inactive term documented as of this encounter (statuses as of 05/12/2021) Immunizations Name Administration Dates Next Due COVID-19 [...] Progress Notes * Lorene Dhaliwal LPN - 05/12/2021 12:35 PM EDT Pre-injection Questionnaire Patient identified by [...] documentation located in Allergy Injections CPSL Flowsheet* PRE - ADMINISTRATION DOCUMENTATION Are you experiencing any cold symptoms or fever? No Have you had Guillain-Gideon Syndrome (an illness that causes paralysis) within the last 6 weeks? No Have you had the flu shot in the past? YES Have you ever had a reaction to the flu shot? No Lorene Dhaliwal LPN, 05/12/2021 12:58 PM Immunization Administration Documentation Time Out Procedure [...] Allergic rhinitis, unspecified seasonality, unspecified trigger- Primary Need for prophylactic vaccination and inoculation against influenza documented in this encounter Advance Directives Documents on File Type Date Recorded Patient Health Outcomes Liaison Expl 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
--- OUTSIDE RECORDS SUMMARY | 2023-04-16 16:11 | External Medical Summary | Summary of Care ---
Author Name Unknown Organization [place] [address] Care Team Providers Care Soil Fertility Specialist Name Role Phone LuisGab dash Primary Care Provider Reason for Visit * Reason Comments Allergy Return Encounter Details Date Type Department Care Team Description 03/16/2021 Office Visit Allergy/Immunology [facility] Betty [place] [address] [place] [address] Beverly Del Angel PA-C [address] [facility] [place] [address] [phone] Intermittent asthma with reliever use up to twice per week without complication*; Allergic rhinitis, unspecified seasonality, unspecified trigger; Chronic seasonal allergic rhinitis due to pollen; Allergic rhinitis due to dust; Chronic seasonal allergic rhinitis due to fungal spores; Non-seasonal allergic rhinitis due to animal hair and dander; Peanut allergy; Tree nut allergy; Adverse food reaction, subsequent encounter Allergies Active Allergy Reactions Severity Noted Date Comments [place] (Diagnostic) Anaphylaxis High 05/21/2017 Banana Edema airway High 01/10/2017 Cat Dander Anaphylaxis High 05/21/2017 Corylus Anaphylaxis High 05/21/2017 Latex Rash Low 01/10/2017 Lac Bovis Other (Please comment) 01/16/2017 Mouth tenderness. Peanut (Diagnostic) Anaphylaxis High 05/21/2017 Prednisone Psych complications 01/17/2017 agitation Sesame Seed (Diagnostic) Anaphylaxis High 05/21/2017 Soy Allergy Anaphylaxis High 01/16/2017 [place] Oil Edema airway High 01/10/2017 Wasp Venom Edema airway High 01/10/2017 documented as of this encounter (statuses as of 03/17/2021) Medications Medication Sig Dispensed Refills Start Date [...] SPRAY) 0.65 % nasal spray Administer 1 [place] into nostril as needed for Congestion. 0 [...] as of this encounter (statuses as of 03/17/2021) Active Problems Problem Noted Date Anxiety 03/28/2017 [...] as of this encounter (statuses as of 03/17/2021) Resolved Problems Problem Noted Date Resolved Date Reaction to allergy injection 05/19/2019 Pollen-food allergy syndrome 03/28/201708/2018 Encounter for supervision of other normal pregna ncy 03/13/2011 09/11/2016 Overview: ICD-10 update of inactive term Acute bronchitis, complicated 02/25/2010 Asthma with severity to be determined 02/13/2017 Overview: ICD-10 update of inactive term documented as of this encounter (statuses as of 03/17/2021) Immunizations Name Administration Dates Next Due COVID-19 mRNA, LNP-s, No Pre serve, 2-Dose Series ([employer]) 01/02/2021,12/12/2020 Diptheria/Tetanus (Adult) 02/10/19982007 HEP A - [...] Sign Reading Time Taken Comments Blood Pressure 130/62 03/16/2021 1:30 PM EDT Pulse 72 03/16/2021 1:30 PM EDT Temperature 37.1 C (98.7 F) 03/16/2021 1:30 PM ED T Respiratory Rate 16 03/16/2021 1:30 PM EDT Oxygen Saturation - - Inhaled Oxygen Concentration - - Weight 92.5 kg (204 lb) 03/16/2021 1:30 PM EDT Height 165.7 cm (5' 5.25") 03/16/2021 1:30 PM ED T Body Mass Index 33.69 03/16/2021 1:30 PM EDT documented in this encounter Progress Notes * Beverly Del Angel PA-C - 03/17/2021 7:38 AM EDT SUBJECTIVE: Regina was evaluated for follow-up of her allergic rhinitis, intermittent asthma and food allergies. She is pleased to report that she is doing much better overall regards to her allergic disease. She was hardly bothered by her allergy symptoms this spring. She is using Claritin every day and adding in Flonase as needed. In years past she needed multiple antihistamines to get through the day. She uses albuterol maybe 2 to 3 times a month for some chest tightness. No nocturnal asthma symptoms. No ER visits or hospitalizations. After her injection on January 20, 2021 she noticed that her palms were itchy. She was in a thrift store and so she thought maybe she had touched something. The itching resolved without any intervention and no other symptoms were noted. Then on January 31 she noticed that her hands where again itchy after her allergy injection. This was maybe 2 to 3 hours later. She felt tired and also felt some mild chest tightness. She used albuterol in Benadryl. She did have large local reactions that night and use Benadryl again the next morning for itching, especially on her arms. We reduced her dose of extract and she has tolerated the lower dose for the past few weeks. She would like to resume build up if possible. She continues to avoid peanuts, tree nuts, seeds and soy. No bee stings in the interim. Asthma control test obtained on March 16, [...] Current Outpatient Medications Medication Sig Dispense Refill Albuterol Sulfate HFA 108 (90 Base) MCG/ACT Inhalation Aerosol Solution Inhale 2 Puffs by mouthevery 4 hours as needed for Cough, Shortness of Breath or Wheezing. 18 g 2 Multi-Vitamin Gummies Oral Tablet Chewable Take 1 Tab by mouth daily. EPINEPHrine, anaphylaxis, (AUTOINJECTOR) 0.3 MG/0.3ML SOAJ For a severe reaction: Place orange end against the outer thigh, press firmly, hold in place for 10 seconds and go to the Emergency room. 2 Each 3 famotidine (PEPCID) 20 MG Tablet Take 1 Tab by mouth 2 times a day as needed for Heartburn (or increased allergy symtpoms). albuterol-ipratropium (DUONEB) 2.5-0.5 MG/3ML nebulizer solution Inhale 3 mL by mouth every 6 hours as needed (wheezing). 60 Vial 5 fluticasone (FLONASE) 50 MCG/ACT nasal spray Administer 2 Sprays into each nostril daily. Use as needed for worsening or persistent nasal allergy symptoms 1 Inhaler 5 cromolyn sodium (CROLOM) 4 % ophthalmic solution Instill 1 Drop into both eyes 4 times a day asneeded for Allergies. 10 mL 12 loratadine ODT (CLARITIN REDITAB) 10 MG TBDP Take 1 tab daily for nasal allergy symptoms saline (OCEAN NASAL SPRAY) 0.65 % nasal spray Administer 1 [place] into nostril as needed for Congestion. diphenhydrAMINE (BENADRYL) 25 MG Capsule Take 2 capsules at onset suspected allergic reaction; may repeat every 4-6 hrs. as needed. 40 Cap 1 Cranberry 250 MG CAPS Take 1 Tab by mouth 2 times a day. Indications: taking 500mg a day Review of patient's allergies indicates: Allergen Reactions Lynn (Diagnostic) Anaphylaxis Banana Edema airway Cat Dander Anaphylaxis [place] Tree Pollen [Corylus] Anaphylaxis Peanut (Diagnostic) Anaphylaxis Sesame Seed (Diagnostic) Anaphylaxis Soy Allergy Anaphylaxis [place] Oil Edema airway Wasp Venom Edema airway [...] floor and heart hardwood. 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 Blood Pressure 130/62 (BP Site: Right Arm, BP Position: Sitting, BP Cuff Size: Regular) | Pulse 72 | Temperature 37.1 C (98.7 F) (Tympanic) | Respiration 16 | Height 1.657 m (5' 5.25") | Weight 92.5 kg (204 lb) | Body Mass Index 33.69 kg/m | Body Surface Area 2.06 m PHYSICAL EXAM: No Acute Distress: Conjunctiva: Normal TM's: Clear Sinus Tenderness: None noted Nose:Pale mucosa; mild inferior turbinate edema, no polyps, no mucopus Oropharynx: Mild erythema and cobblestoning, no lesions or exudates. Neck: No significant adenopathy Lungs: Clear to A&P, no wheezes; Good air movement bilaterally. Cor: RRR, no murmur Skin: No lesions atopic dermatitis; no urticaria, angioedema OBJECTIVE DATA: Component Latest Ref Rng & Units 02/13/2017 [...] with essentially normal spirometry. ASSESSMENT: ICD-10-CM 1. Intermittent asthma with reliever use up to twice per week without complication J45.20 2. Allergic rhinitis, unspecified seasonality, unspecified trigger J30.9 3. Chronic seasonal allergic rhinitis due to pollen J30.1 4. Allergic rhinitis due to dust J30.89 5. Chronic seasonal allergic rhinitis due to fungal spores J30.2 6. Non-seasonal allergic rhinitis due to animal hair and dander J30.81 7. Peanut allergy Z91.010 8. 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 Adverse food reaction, subsequent encounter T78.1XXD PLAN: Avoidance measures regarding pollens, molds, dust mites and animal danders should be continued. She started immunotherapy in 2017 but it was interrupted by the COVID pandemic. She resumed injections in February of 2020 and is almost at the maintenance dose. It has been very beneficial reducing her allergy symptoms. In January she had some itchy palms about an hour or 2 after her injections. There isno systemic urticaria. There were no other significant associated symptoms. We have decided to try to advance her dose again starting today. She will stay for an hour after her next 3 injections justas a precaution. She has a history of significant allergic [...] most likely this was pollen related symptoms. Overall she is doing well and will continue Claritin 10 mg a day. She does have Flonase to add in as needed basis for worsening nasal congestion and during the peak pollen seasons. In case of worsening symptoms she will always add in Benadryl 50 mg immediately in every 4-6 hours as needed. If she were to go on to life-threatening throat tightness, difficulty swallowing, shortness of breath she should use her EpiPen and go to the emergency room. She does have an anaphylaxis action plan regardingthis protocol. Her asthma remains intermittent. She will continue albuterol 2 puffs every 4 hours as needed. If worsening or more persistent asthma symptoms noted, she will notify this office for Singulair or inhaled corticosteroid anti-inflammatory preventative therapy. She continues avoidance of foods; almond, sunflower/sesame seeds, peanut and soy. Serum IgE determinations however show very show low positive reactions to these foods however history is significant for reactions when ingested. She will continue to avoid them and use emergency Benadryl/Epipen protocol in case of accidental ingestion. Symptoms are also suggestive of pollen food allergy syndrome especially regarding reactions with mandarin oranges where symptoms are almost always localized to themouth and throat area and rarely become systemic. These foods should be avoided in their fresh/raw state, but are often tolerated cooked or processed. Treatment of choice is oral benadryl at onset ofthe mouth/throat itching. There is a remote history in childhood of reaction to insect stings. Once her other problems are better controlled, venom testing recommended to see if there is still current significant IgE mediatedvenom sensitivity remaining. At the present time she will avoid insect stings and if stung follow the same Benadryl/EpiPen protocol that she uses for her food allergies. Follow Up: Return in about 6 months (around 09/16/2021). Beverly Del Angel, Physician [facility] Betty Blanc The patient is being seen in follow up for the treatment of J45.20 Intermittent asthma with reliever use up to twice per week without complication (primary encounter diagnosis) J30.9 Allergic rhinitis, unspecified seasonality, unspecified trigger J30.1 Chronic seasonal allergic rhinitis due to pollen J30.89 Allergic rhinitis due to dust J30.2 Chronic seasonal allergic rhinitis due to fungal spores J30.81 Non-seasonal allergic rhinitis due to animal hair and dander Z91.010 Peanut allergy Z91.018 Tree nut allergy T78.1XXD Adverse food reaction, subsequent encounter incident to the plan of care established [...] questions to the provider listed above.) * Liz Cr RN - 03/16/2021 2:02 PM EDT Pre-injection Questionnaire Patient identified by [...] condition? No Today's peak flow - BP 130/62 (BP Site: Right Arm, BP Position: Sitting, BP Cuff Size: Regular) | Pulse 72 | Temp 37.1 C (98.7 F) (Tympanic) | Resp 16 | Ht 1.657 m (5' 5.25") | Wt 92.5 kg (204 lb) | BMI 33.69 kg/m | BSA 2.06 m *Allergy Injection documentation located in Allergy Injections CPSL Flowsheet* documented in this encounter Nursing Notes * Liz Cr RN - 03/16/2021 1:30 PM EDT The pt has been properly identified by confirmation of name and date of . Discus advancing AIT documented in this encounter Plan of Treatment [...] as of this encounter Visit Diagnoses Diagnosis Intermittent asthma with reliever use up to twice per week without complication- Primary Allergic rhinitis, unspecified seasonality, unspecified trigger Chronic seasonal allergic rhinitis due to pollen Chronic seasonal allergic rhinitis due to fungal spores Non-seasonal allergic rhinitis due to animal hair and dander Peanut allergy Allergy to peanuts Tree nut allergy Allergy to other foods Adverse food reaction, subsequent encounter documented in this encounter Advance Directives Documents on File Type Date Recorded 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
--- OUTSIDE RECORDS SUMMARY | 2023-04-16 16:11 | External Medical Summary ---
Author Name Unknown Address Unknown Organization [id number]:[facility] [place] [facility] [address] [facility] [address] Laboratory Report Ordering Provider Test Date Status MANNY PEARCE 03/13/2021 16:24:53 Final Observation Date Value Abnormality Reference (Units ) Status Milk IgE 03/13/2021 16:24:53 <0.20 <0.35 (kU/ L) Final Performing Location [facility] [place] [facility] [address] [facility] [address]
--- OUTSIDE RECORDS SUMMARY | 2023-04-16 16:11 | External Medical Summary | Summary of Care ---
Author Name Unknown Organization [facility] Address [place] [address] Care Team Providers Care Finisher Polisher Name Role Phone Gab Smith Primary Care Provider Reason for Visit * Reason Onset Date Comments Allergy Injection 03/28/2021 Encounter Details Date Type Department Care Team Description 03/28/2021 Immunization/In jection Allergy/Immunology [facility] [address] [place] [address] Betty Nurse [facility] [address] [place] [address] [phone] Allergic rhinitis, unspecified seasonality, unspecified trigger* Allergies Active Allergy Reactions Severity Noted Date Comments [place] (Diagnostic) Anaphylaxis High 05/21/2017 Banana Edema airway High 01/10/2017 Cat Dander Anaphylaxis High 05/21/2017 Corylus Anaphylaxis High 05/21/2017 Latex Rash Low 01/10/2017 Lac Bovis Other (Please comment) 01/16/2017 Mouth tenderness. Peanut (Diagnostic) Anaphylaxis High 05/21/2017 Prednisone Psych complications 01/17/2017 agitation Sesame Seed (Diagnostic) Anaphylaxis High 05/21/2017 Soy Allergy Anaphylaxis High 01/16/2017 [place] Oil Edema airway High 01/10/2017 Wasp Venom Edema airway High 01/10/2017 documented as of this encounter (statuses as of 03/28/2021) Medications Medication Sig Dispensed Refills Start Date [...] SPRAY) 0.65 % nasal spray Administer 1 [place] into nostril as needed for Congestion. [...] as of this encounter (statuses as of 03/28/2021) Active Problems Problem Noted Date Anxiety 03/28/2017 [...] as of this encounter (statuses as of 03/28/2021) Resolved Problems Problem Noted Date Resolved Date Reaction to allergy injection 05/19/2019 Pollen-food allergy syndrome 03/28/201708/2018 Encounter for supervision of other normal pregna ncy 03/13/2011 09/11/2016 Overview: ICD-10 update of inactive term Acute bronchitis, complicated 02/25/2010 Asthma with severity to be determined 02/13/2017 Overview: ICD-10 update of inactive term documented as of this encounter (statuses as of 03/28/2021) Immunizations Name Administration Dates Next Due COVID-19 mRNA, LNP-s, No Pre serve, 2-Dose Series ([employer]) 01/02/2021,12/12/2020 Diptheria/Tetanus (Adult) 02/10/19982007 HEP A - [...] Progress Notes * Liz Cr RN - 03/28/2021 11:56 AM EDT Pre-injection Questionnaire Patient identified by [...] Documents on File Type Date Recorded 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
--- OUTSIDE RECORDS SUMMARY | 2023-04-16 16:11 | External Medical Summary ---
Author Name Unknown Address Unknown Organization K01:[facility] [place] [address] [place] [address] Laboratory Report Ordering Provider Test Date Status MANNY PEARCE 03/13/2021 16:24:53 Final Observation Date Value Abnormality Reference (Units ) Status [place] IgE Ab [Units/volume] in Serum 03/13/2021 16:24:53 31.00 <0.35 (kU/L) Final Performing Location [facility] [place] [address] [place] [address]
--- OUTSIDE RECORDS SUMMARY | 2023-04-16 16:12 | External Medical Summary | Summary of Care ---
Author Name Unknown Organization [facility] Address [place] [address] Care Team Providers Care Nurse Ob Name Role Phone LuisGab dash Primary Care Provider [phone] Reason for Visit * Reason Onset Date Comments Allergy Injection 12/06/2020 Encounter Details Date Type Department Care Team Description 12/06/2020 Immunization/In jection Allergy/Immunology [facility] [place] [address] [place] [address] Betty Nurse Allergy [facility] [place] [facility] [place] [address] [place] [address] [phone] Allergic rhinitis, unspecified seasonality, unspecified trigger* Allergies Active Allergy Reactions Severity Noted Date Comments [place] (Diagnostic) Anaphylaxis High 05/21/2017 Banana Edema airway High 01/10/2017 Cat Dander Anaphylaxis High 05/21/2017 Corylus Anaphylaxis High 05/21/2017 Latex Rash Low 01/10/2017 Lac Bovis Other (Please comment) 01/16/2017 Mouth tenderness. Peanut (Diagnostic) Anaphylaxis High 05/21/2017 Prednisone Psych complications 01/17/2017 agitation Sesame Seed (Diagnostic) Anaphylaxis High 05/21/2017 Soy Allergy Anaphylaxis High 01/16/2017 [place] Oil Edema airway High 01/10/2017 Wasp Venom Edema airway High 01/10/2017 documented as of this encounter (statuses as of 12/06/2020) Medications Medication Sig Dispensed Refills Start Date [...] SPRAY) 0.65 % nasal spray Administer 1 [place] into nostril as needed for Congestion. 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 Encounter for supervision of other normal pregna ncy 03/13/2011 09/11/2016 Overview: ICD-10 update of inactive term Acute bronchitis, complicated 02/25/2010 Asthma with severity to be determined 02/13/2017 Overview: ICD-10 update of inactive term documented as of this encounter (statuses as of 12/06/2020) Immunizations Name Administration Dates Next Due Diptheria/Tetanus (Adult) 02/10/19982007 HEP A - Hepatitis [...] as of this encounter Progress Notes * Marilee Bobby LPN - 12/06/2020 12:17 PM EDT Pre-injection Questionnaire Patient identified [...] Encounters Date Type Specialty Care Team Description 01/11/2021 Telemedicine Pulmonary Theresa Velarde, DO [address] [facility] [place] [address] Health Maintenance Due Date Last Done Comments Pneumococcal Vaccine: Pediatrics (0 to 5 Years) and At-Risk Patients (6 to 64 Years) (1 of 2 - PPSV23) 1989 PAP SMEAR-EVERY 3 YRS,AGES 21-65 2004 DTaP,Tdap,and Td Vaccines (3 - Td) 01/30/2019 01/30/2009, 02/10/1998 *DEPRESSION SCREENING,ANNUAL FOR PTS 12 AND OVER 04/17/2020 Influenza Vaccine (FLU shot) Completed 04/21/2020 MENINGOCOCCAL (MENACTRA/MENVEO) Aged Out No longer eligible b ased on patient's age to complete this topic documented as of this encounter Implants Not on filedocumented as of this encounter Visit Diagnoses Diagnosis Allergic rhinitis, unspecified seasonality, unspecified trigger- Primary documented in this encounter Advance Directives Documents on File Type Date Recorded Patient Administrative Officer Expl 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
--- OUTSIDE RECORDS SUMMARY | 2023-04-16 16:12 | External Medical Summary | Summary of Care ---
Author Name Unknown Organization [facility] Address [place] [address] Care Team Providers Care Rn Or Lpn Name Role Phone Gab Smith Primary Care Provider [phone] Reason for Visit * Reason Onset Date Comments Allergy Injection 01/13/2021 Encounter Details Date Type Department Care Team Description 01/13/2021 Immunization/In jection Allergy/Immunology [facility] [place] [address] [place] [address] Betty Nurse Allergy [facility] [place] [address] [place] [address] [phone] Allergic rhinitis, unspecified seasonality, unspecified trigger* Allergies Active Allergy Reactions Severity Noted Date Comments [place] (Diagnostic) Anaphylaxis High 05/21/2017 Banana Edema airway High 01/10/2017 Cat Dander Anaphylaxis High 05/21/2017 Corylus Anaphylaxis High 05/21/2017 Latex Rash Low 01/10/2017 Lac Bovis Other (Please comment) 01/16/2017 Mouth tenderness. Peanut (Diagnostic) Anaphylaxis High 05/21/2017 Prednisone Psych complications 01/17/2017 agitation Sesame Seed (Diagnostic) Anaphylaxis High 05/21/2017 Soy Allergy Anaphylaxis High 01/16/2017 [place] Oil Edema airway High 01/10/2017 Wasp Venom Edema airway High 01/10/2017 documented as of this encounter (statuses as of 01/13/2021) Medications Medication Sig Dispensed Refills Start Date [...] SPRAY) 0.65 % nasal spray Administer 1 [place] into nostril as needed for Congestion. 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 Encounter for supervision of other normal pregna ncy 03/13/2011 09/11/2016 Overview: ICD-10 update of inactive term Acute bronchitis, complicated 02/25/2010 Asthma with severity to be determined 02/13/2017 Overview: ICD-10 update of inactive term documented as of this encounter (statuses as of 01/13/2021) Immunizations Name Administration Dates Next Due COVID-19 mRNA, LNP-s, No Pre serve, 2-Dose Series ([place]) 01/02/2021,12/12/2020 Diptheria/Tetanus (Adult) 02/10/19982007 HEP A - [...] Progress Notes * Lorene Dhaliwal LPN - 01/13/2021 12:08 PM EDT Pre-injection Questionnaire Patient identified by [...] 04/17/2020 Influenza Vaccine (FLU shot) Completed 04/21/2020 COVID-19 Vaccine Completed 01/02/2021, 12/12/2020 MENINGOCOCCAL (MENACTRA/MENVEO) Aged Out No longer eligible b ased on patient's age to complete this topic documented as of this encounter Implants Not on filedocumented as of this encounter Visit Diagnoses Diagnosis Allergic rhinitis, unspecified seasonality, unspecified trigger- Primary documented in this encounter Advance Directives Documents on File Type Date Recorded Patient Document Control Specialist Expl 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
--- OUTSIDE RECORDS SUMMARY | 2023-04-16 16:12 | External Medical Summary | Summary of Care ---
Author Name Unknown Organization [facility] Address [place] [address] Care Team Providers Care Shake Splitter Name Role Phone LuisGab dash Primary Care Provider [phone] Reason for Visit * Reason Onset Date Comments Allergy Injection 12/27/2020 Encounter Details Date Type Department Care Team Description 12/27/2020 Immunization/In jection Allergy/Immunology [facility] [place] [address] [place] [address] Betty Nurse Allergy [facility] [place] [address] [place] [address] [phone] Allergic rhinitis, unspecified seasonality, unspecified trigger* Allergies Active Allergy Reactions Severity Noted Date Comments [place] (Diagnostic) Anaphylaxis High 05/21/2017 Banana Edema airway High 01/10/2017 Cat Dander Anaphylaxis High 05/21/2017 Corylus Anaphylaxis High 05/21/2017 Latex Rash Low 01/10/2017 Lac Bovis Other (Please comment) 01/16/2017 Mouth tenderness. Peanut (Diagnostic) Anaphylaxis High 05/21/2017 Prednisone Psych complications 01/17/2017 agitation Sesame Seed (Diagnostic) Anaphylaxis High 05/21/2017 Soy Allergy Anaphylaxis High 01/16/2017 [place] Oil Edema airway High 01/10/2017 Wasp Venom Edema airway High 01/10/2017 documented as of this encounter (statuses as of 12/27/2020) Medications Medication Sig Dispensed Refills Start Date [...] SPRAY) 0.65 % nasal spray Administer 1 [place] into nostril as needed for Congestion. 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 [place] [address] Health Maintenance Due [...] Documents on File Type Date Recorded Patient Appliance Service Supervisor Expl 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
--- OUTSIDE RECORDS SUMMARY | 2023-04-16 16:12 | External Medical Summary | Summary of Care ---
Author Name Unknown Organization [facility] Address [place] [address] Care Team Providers Care Manager Music Name Role Phone LuisGab dash Primary Care Provider Reason for Visit * Reason Onset Date Comments Allergy Injection 01/20/2021 Encounter Details Date Type Department Care Team Description 01/20/2021 Immunization/In jection Allergy/Immunology [facility] [place] [address] [place] [address] Betty Nurse Allergy [facility] [place] [address] [place] [address] [phone] Allergic rhinitis, unspecified seasonality, unspecified trigger* Allergies Active Allergy Reactions Severity Noted Date Comments [place] (Diagnostic) Anaphylaxis High 05/21/2017 Banana Edema airway High 01/10/2017 Cat Dander Anaphylaxis High 05/21/2017 Corylus Anaphylaxis High 05/21/2017 Latex Rash Low 01/10/2017 Lac Bovis Other (Please comment) 01/16/2017 Mouth tenderness. Peanut (Diagnostic) Anaphylaxis High 05/21/2017 Prednisone Psych complications 01/17/2017 agitation Sesame Seed (Diagnostic) Anaphylaxis High 05/21/2017 Soy Allergy Anaphylaxis High 01/16/2017 [place] Oil Edema airway High 01/10/2017 Wasp Venom Edema airway High 01/10/2017 documented as of this encounter (statuses as of 01/20/2021) Medications Medication Sig Dispensed Refills Start Date [...] SPRAY) 0.65 % nasal spray Administer 1 [place] into nostril as needed for Congestion. 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 Encounter for supervision of other normal pregna ncy 03/13/2011 09/11/2016 Overview: ICD-10 update of inactive term Acute bronchitis, complicated 02/25/2010 Asthma with severity to be determined 02/13/2017 Overview: ICD-10 update of inactive term documented as of this encounter (statuses as of 01/20/2021) Immunizations Name Administration Dates Next Due COVID-19 mRNA, LNP-s, No Pre serve, 2-Dose Series ([place] [employer]) 01/02/2021,12/12/2020 Diptheria/Tetanus (Adult) 02/10/19982007 HEP A - [...] Progress Notes * Lorene Dhaliwal LPN - 01/20/2021 12:17 PM EDT Pre-injection Questionnaire Patient identified [...] Documents on File Type Date Recorded Patient Swimming Coach Or Instructor Expl 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
--- OUTSIDE RECORDS SUMMARY | 2023-04-16 16:12 | External Medical Summary ---
Author Name Unknown Address Unknown Organization K01:[facility] [address] [place] [address] Laboratory Report Ordering Provider Test Date Status OLGA GIFFORD 11/29/2020 12:17:58 Final Observation Date Value Abnormality Reference (Units ) Status Ferritin 11/29/2020 12:17:58 116 13-150 (ng /mL) Final Performing Location [facility] [address] [place] [id number]
--- OUTSIDE RECORDS SUMMARY | 2023-04-16 16:12 | External Medical Summary | Summary of Care ---
Author Name Unknown Organization [place] [address] Care Team Providers Care Corporate Attorney Name Role Phone Gab Smith DO Primary Care Provider [phone] Reason for Visit * Reason Onset Date Comments Advice 01/31/2021 Encounter Details Date Type Department Care Team Description 01/31/2021 Telephone Family Practice [facility] [address] [facility] [address] Gab Smith DO [address] [facility] [place] [address] [phone] Advice Allergies Active Allergy Reactions Severity Noted Date Comments [place] (Diagnostic) Anaphylaxis High 05/21/2017 Banana Edema airway High 01/10/2017 Cat Dander Anaphylaxis High 05/21/2017 Corylus Anaphylaxis High 05/21/2017 Latex Rash Low 01/10/2017 Lac Bovis Other (Please comment) 01/16/2017 Mouth tenderness. Peanut (Diagnostic) Anaphylaxis High 05/21/2017 Prednisone Psych complications 01/17/2017 agitation Sesame Seed (Diagnostic) Anaphylaxis High 05/21/2017 Soy Allergy Anaphylaxis High 01/16/2017 [place] Oil Edema airway High 01/10/2017 Wasp Venom Edema airway High 01/10/2017 documented as of this encounter (statuses as of 01/31/2021) Medications Medication Sig Dispensed Refills Start Date [...] SPRAY) 0.65 % nasal spray Administer 1 [place] into nostril as needed for Congestion. 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 Encounter for supervision of other normal pregna ncy 03/13/2011 09/11/2016 Overview: ICD-10 update of inactive term Acute bronchitis, complicated 02/25/2010 Asthma with severity to be determined 02/13/2017 Overview: ICD-10 update of inactive term documented as of this encounter (statuses as of 01/31/2021) Immunizations Name Administration Dates Next Due COVID-19 mRNA, LNP-s, No Pre serve, 2-Dose Series ([employer]) 01/02/2021,12/12/2020 Diptheria/Tetanus (Adult) 02/10/19982007 HEP A [...] Telephone Encounter - Liz Cr RN - 01/31/2021 3:52 PM EDT Allergy pt See other encounter * Telephone Encounter - Yoan Chance OSA - 01/31/2021 3:15 PM EDT Reason for patient's call: wants to speak with nurse Caller was transferred to Liz at the nurse line. documented in this [...] Documents on File Type Date Recorded Patient Injection 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
--- OUTSIDE RECORDS SUMMARY | 2023-04-16 16:12 | External Medical Summary | Summary of Care ---
Author Name Unknown Organization [facility] Address [place] [address] Care Team Providers Care Bioinformatics Research Technician Name Role Phone Gab Smith Primary Care Provider Reason for Visit * Reason Onset Date Comments Allergy Injection 03/09/2021 Encounter Details Date Type Department Care Team Description 03/09/2021 Immunization/In jection Allergy/Immunology [facility] [place] [address] [place] [address] Betty Nurse Allergy [facility] [place] [address] [place] [address] [phone] Allergic rhinitis, unspecified seasonality, unspecified trigger* Allergies Active Allergy Reactions Severity Noted Date Comments [place] (Diagnostic) Anaphylaxis High 05/21/2017 Banana Edema airway High 01/10/2017 Cat Dander Anaphylaxis High 05/21/2017 Corylus Anaphylaxis High 05/21/2017 Latex Rash Low 01/10/2017 Lac Bovis Other (Please comment) 01/16/2017 Mouth tenderness. Peanut (Diagnostic) Anaphylaxis High 05/21/2017 Prednisone Psych complications 01/17/2017 agitation Sesame Seed (Diagnostic) Anaphylaxis High 05/21/2017 Soy Allergy Anaphylaxis High 01/16/2017 [place] Oil Edema airway High 01/10/2017 Wasp Venom Edema airway High 01/10/2017 documented as of this encounter (statuses as of 03/09/2021) Medications Medication Sig Dispensed Refills Start Date [...] SPRAY) 0.65 % nasal spray Administer 1 [place] into nostril as needed for Congestion. 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 Encounter for supervision of other normal pregna ncy 03/13/2011 09/11/2016 Overview: ICD-10 update of inactive term Acute bronchitis, complicated 02/25/2010 Asthma with severity to be determined 02/13/2017 Overview: ICD-10 update of inactive term documented as of this encounter (statuses as of 03/09/2021) Immunizations Name Administration Dates Next Due COVID-19 mRNA, LNP-s, No Pre serve, 2-Dose Series (Zevia) 01/02/2021,12/12/2020 Diptheria/Tetanus (Adult) 02/10/19982007 HEP A - [...] Progress Notes * Marilee Bobby LPN - 03/09/2021 12:27 PM EDT Pre-injection Questionnaire Patient identified by [...] Encounters Date Type Specialty Care Team Description 03/10/2021 Office Visit Family Medicine Gab Smith, [address] [place] [address] [phone] 03/15/2021 Office Visit Allergy & Immunology Valeriy Milton MD [address] [place] [address] [phone] Health Maintenance Due Date Last Done Comments [...] Documents on File Type Date Recorded Patient Sales Marketing Coordinator Expl 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
--- OUTSIDE RECORDS SUMMARY | 2023-04-16 16:12 | External Medical Summary | Summary of Care ---
Author Name Unknown Organization [facility] Address [place] [address] Care Team Providers Care Cosmetician Apprentice Name Role Phone LuisGab dash Primary Care Provider Reason for Visit * Reason Onset Date Comments Allergy Injection 12/16/2020 Encounter Details Date Type Department Care Team Description 12/16/2020 Immunization/In jection Allergy/Immunology [facility] [place] [address] [place] [address] Betty Nurse Allergy [facility] [place] [address] [place] [address] [phone] Allergic rhinitis, unspecified seasonality, unspecified trigger* Allergies Active Allergy Reactions Severity Noted Date Comments [place] (Diagnostic) Anaphylaxis High 05/21/2017 Banana Edema airway High 01/10/2017 Cat Dander Anaphylaxis High 05/21/2017 Corylus Anaphylaxis High 05/21/2017 Latex Rash Low 01/10/2017 Lac Bovis Other (Please comment) 01/16/2017 Mouth tenderness. Peanut (Diagnostic) Anaphylaxis High 05/21/2017 Prednisone Psych complications 01/17/2017 agitation Sesame Seed (Diagnostic) Anaphylaxis High 05/21/2017 Soy Allergy Anaphylaxis High 01/16/2017 [place] Oil Edema airway High 01/10/2017 Wasp Venom Edema airway High 01/10/2017 documented as of this encounter (statuses as of 12/16/2020) Medications Medication Sig Dispensed Refills Start Date [...] SPRAY) 0.65 % nasal spray Administer 1 [place] into nostril as needed for Congestion. 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 [place] [address] Health Maintenance [...] Documents on File Type Date Recorded Patient Bundle Sorter Expl 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
--- OUTSIDE RECORDS SUMMARY | 2023-04-16 16:12 | External Medical Summary | Summary of Care ---
Author Name Unknown Organization [facility] Address [place] [address] Care Team Providers Care Corn Shucker Name Role Phone Gab Smith Primary Care Provider Reason for Visit * Reason Onset Date Comments Allergy Injection 11/29/2020 Encounter Details Date Type Department Care Team Description 11/29/2020 Immunization/In jection Allergy/Immunology [facility] [place] [address] [place] [address] Betty Nurse Allergy [facility] [place] [address] [place] [address] [phone] Allergic rhinitis, unspecified seasonality, unspecified trigger* Allergies Active Allergy Reactions Severity Noted Date Comments [place] (Diagnostic) Anaphylaxis High 05/21/2017 Banana Edema airway High 01/10/2017 Cat Dander Anaphylaxis High 05/21/2017 Corylus Anaphylaxis High 05/21/2017 Latex Rash Low 01/10/2017 Lac Bovis Other (Please comment) 01/16/2017 Mouth tenderness. Peanut (Diagnostic) Anaphylaxis High 05/21/2017 Prednisone Psych complications 01/17/2017 agitation Sesame Seed (Diagnostic) Anaphylaxis High 05/21/2017 Soy Allergy Anaphylaxis High 01/16/2017 [place] Oil Edema airway High 01/10/2017 Wasp Venom Edema airway High 01/10/2017 documented as of this encounter (statuses as of 11/29/2020) Medications Medication Sig Dispensed Refills Start Date [...] SPRAY) 0.65 % nasal spray Administer 1 [place] into nostril as needed for Congestion. 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 Encounter for supervision of other normal pregna ncy 03/13/2011 09/11/2016 Overview: ICD-10 update of inactive term Acute bronchitis, complicated 02/25/2010 Asthma with severity to be determined 02/13/2017 Overview: ICD-10 update of inactive term documented as of this encounter (statuses as of 11/29/2020) Immunizations Name Administration Dates Next Due Diptheria/Tetanus [...] Progress Notes * Lorene Dhaliwal LPN - 11/29/2020 12:27 PM EDT Pre-injection Questionnaire Patient identified [...] 01/11/2021 Telemedicine Pulmonary Theresa Velarde, DO [address] [facility] [place] [address] Health Maintenance Due [...] Documents on File Type Date Recorded Patient Piano Stringer Expl 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
--- OUTSIDE RECORDS SUMMARY | 2023-04-16 16:12 | External Medical Summary | Summary of Care ---
Author Name Unknown Organization [facility] [place] [address] Care Team Providers Care Photography Professor Name Role Phone Gab Smith Primary Care Provider Reason for Visit * Reason Onset Date Comments Allergy Injection 02/14/2021 Encounter Details Date Type Department Care Team Description 02/14/2021 Immunization/In jection Allergy/Immunology [facility] [place] [address] [place] [address] Betty Nurse Allergy [facility] [place] [address] [place] [address] [phone] Allergic rhinitis, unspecified seasonality, unspecified trigger* Allergies Active Allergy Reactions Severity Noted Date Comments [place] (Diagnostic) Anaphylaxis High 05/21/2017 Banana Edema airway High 01/10/2017 Cat Dander Anaphylaxis High 05/21/2017 Corylus Anaphylaxis High 05/21/2017 Latex Rash Low 01/10/2017 Lac Bovis Other (Please comment) 01/16/2017 Mouth tenderness. Peanut (Diagnostic) Anaphylaxis High 05/21/2017 Prednisone Psych complications 01/17/2017 agitation Sesame Seed (Diagnostic) Anaphylaxis High 05/21/2017 Soy Allergy Anaphylaxis High 01/16/2017 [place] Oil Edema airway High 01/10/2017 Wasp Venom Edema airway High 01/10/2017 documented as of this encounter (statuses as of 02/14/2021) Medications Medication Sig Dispensed Refills Start Date [...] SPRAY) 0.65 % nasal spray Administer 1 [place] into nostril as needed for Congestion. 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 Encounter for supervision of other normal pregna ncy 03/13/2011 09/11/2016 Overview: ICD-10 update of inactive term Acute bronchitis, complicated 02/25/2010 Asthma with severity to be determined 02/13/2017 Overview: ICD-10 update of inactive term documented as of this encounter (statuses as of 02/14/2021) Immunizations Name Administration Dates Next Due COVID-19 mRNA, LNP-s, No Pre serve, 2-Dose Series ([employer]) 01/02/2021,12/12/2020 Diptheria/Tetanus (Adult) 02/10/19982007 HEP A - [...] Progress Notes * Marilee Bobby LPN - 02/14/2021 12:16 PM EDT Pre-injection Questionnaire Patient identified by [...] swelling that persisted in the next day? Yes- in chart. 5. Are you on any new medications [...] Documents on File Type Date Recorded Patient Glass Breaker Expl 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
--- OUTSIDE RECORDS SUMMARY | 2023-04-16 16:12 | External Medical Summary | Summary of Care ---
Author Name Unknown Organization [place] [address] Care Team Providers Care Cash Posting Representative Name Role Phone Gab Smith DO Primary Care Provider [phone] Reason for Visit * Reason Onset Date Comments Advice 02/27/2021 Encounter Details Date Type Department Care Team Description 02/27/2021 Telephone Allergy/Immunology [facility] [address] [place] [address] Valeriy Milton MD [address] [place] [address] [phone] Advice Allergies Active Allergy Reactions Severity Noted Date Comments [place] (Diagnostic) Anaphylaxis High 05/21/2017 Banana Edema airway [...] as of this encounter (statuses as of 02/27/2021) Medications Medication Sig Dispensed Refills Start Date [...] SPRAY) 0.65 % nasal spray Administer 1 [place] into nostril as needed [...] as of this encounter (statuses as of 02/27/2021) Active Problems Problem Noted Date Anxiety 03/28/2017 [...] as of this encounter (statuses as of 02/27/2021) Resolved Problems Problem Noted Date Resolved Date Reaction to allergy injection 05/19/2019 Pollen-food allergy syndrome 03/28/201708/2018 Encounter for supervision of other normal pregna ncy 03/13/2011 09/11/2016 Overview: ICD-10 update of inactive term Acute bronchitis, complicated 02/25/2010 Asthma with severity to be determined 02/13/2017 Overview: ICD-10 update of inactive term documented as of this encounter (statuses as of 02/27/2021) Immunizations Name Administration Dates Next Due COVID-19 [...] Telephone Encounter - Marilee Bobby LPN - 02/27/2021 6:01 PM EDT Outgoing call, verified name and with patient. Pt has been informed of below message and verbalized understanding. Pt also asking about honey use, instructed patient that they can have this. * Telephone Encounter - eBverly Del Angel PA-C - 02/27/2021 5:56 PM EDT It is not well known if tree or seed based cosmetic products will cause problems so she should avoid them. * Telephone Encounter - Lorene Dhaliwal LPN - 02/27/2021 5:36 PM EDT Pt is asking if she can use [place] butter because it is a seed/nut. Please advise documented in this encounter Plan of Treatment [...] Documents on File Type Date Recorded Patient Cloth Finishing Range 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
--- OUTSIDE RECORDS SUMMARY | 2023-04-16 16:12 | External Medical Summary | Summary of Care ---
Author Name Unknown Organization [place] [address] Care Team Providers Care Design Architect Name Role Phone Gab Smith DO Primary Care Provider Reason for Visit * Reason Onset Date Comments Advice 02/27/2021 Encounter Details Date Type Department Care Team Description 02/27/2021 Telephone Allergy/Immunology [facility] [address] [place] [address] Valeriy Milton MD [address] [place] [address] [phone] Advice Allergies Active Allergy Reactions Severity Noted Date Comments [place] (Diagnostic) Anaphylaxis High 05/21/2017 Banana Edema airway High 01/10/2017 Cat Dander Anaphylaxis High 05/21/2017 Corylus Anaphylaxis High 05/21/2017 Latex Rash Low 01/10/2017 Lac Bovis Other (Please comment) 01/16/2017 Mouth tenderness. Peanut (Diagnostic) Anaphylaxis High 05/21/2017 Prednisone Psych complications 01/17/2017 agitation Sesame Seed (Diagnostic) Anaphylaxis High 05/21/2017 Soy Allergy Anaphylaxis High 01/16/2017 [place] Oil Edema airway High 01/10/2017 Wasp Venom [...] SPRAY) 0.65 % nasal spray Administer 1 [place] into nostril as needed for Congestion. 0 [...] can have this. * Telephone Encounter - Beverly Del Angel PA-C - 02/27/2021 5:56 PM [...] Documents on File Type Date Recorded Patient Scientific Research Manager Expl 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
--- OUTSIDE RECORDS SUMMARY | 2023-04-16 16:12 | External Medical Summary ---
Author Name Unknown Address Unknown Organization K01:[facility] [address] [place] [address] Laboratory Report Ordering Provider Test Date Status OLGA GIFFORD 11/29/2020 12:17:58 Final Observation Date Value Abnormality Reference (Units ) Status Iron 11/29/2020 12:17:58 96 33-151 (ug /dL) Final Iron-binding capacity 11/29/2020 12:17:58 305 250-425 (ug/dL) Final Transferrin Sat % 11/29/2020 12:17:58 31 15 -55 (%) Final Performing Location [facility] [address] [place] [id number]
--- OUTSIDE RECORDS SUMMARY | 2023-04-16 16:12 | External Medical Summary | Summary of Care ---
Author Name Unknown Organization [place] [address] Care Team Providers Care Shackler Name Role Phone Gab Smith DO Primary Care Provider Reason for Visit * Reason Onset Date Comments Advice 01/31/2021 Encounter Details Date Type Department Care Team Description 01/31/2021 Telephone Allergy/Immunology [facility] [address] [facility] [place] [address] Valeriy Milton MD [address] [place] [address] [phone] Advice Allergies Active Allergy Reactions Severity Noted Date Comments [place] (Diagnostic) Anaphylaxis High 05/21/2017 Banana Edema airway High 01/10/2017 Cat Dander Anaphylaxis High 05/21/2017 Corylus Anaphylaxis High 05/21/2017 Latex Rash Low 01/10/2017 Lac Bovis Other (Please comment) 01/16/2017 Mouth tenderness. Peanut (Diagnostic) Anaphylaxis High 05/21/2017 Prednisone Psych complications 01/17/2017 agitation Sesame Seed (Diagnostic) Anaphylaxis High 05/21/2017 Soy Allergy Anaphylaxis High 01/16/2017 [place] Oil Edema airway High 01/10/2017 Wasp Venom Edema airway High 01/10/2017 documented as of this encounter (statuses as of 02/01/2021) Medications Medication Sig Dispensed Refills Start Date [...] SPRAY) 0.65 % nasal spray Administer 1 [place] into nostril as needed for Congestion. 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 Pt still feels a little itchy on arms and face-not as bad as yesterday-no rash/hives on face. Rash under chin and on palms of hands resolving. No resp changes noted. Heartburn better. Advised pt to continue pepcid bid until 24 hours after Sx completely resolve, continue daily claritin and prn benadryl, stay indoors as much as possible the next couple of days to minimize tree pollen exposure. Pt to call back prn FYI * Telephone Encounter - Liz Cr RN - 01/31/2021 3:53 PM EDT Pt called clinic. Pt received AIT- 0.15 ml out of red vials at 1228 today; see AIT flowsheet. Pt reports that approximately 1 hour after AIT, she dev itchy palms on both hands-also noted a slight rash. Pt then noted itchiness and a rash/hives under her chin and along jawline. Injection sites are red about the size of a 50 cent coin. No cough or resp changes, but feels as though she could cough with deep inspiration. No wheezing, no edema noted anywhere. C/o heartburn-pt has this intermittently and Sx do not feel different- Pt took Benadryl 50 mg po prior to calling clinic. Advised pt to use her albuterol MDI and take a dose of pepcid. Reviewed all information with Dr Milton. Pt to continue daily antihistamines and take Benadryl 50 mg every 4-6 hours. Pt to take her pepcid bid.Pt to proceed to ER is she dev resp issues or condition worsens. Dr thinks pt is reacting to the high tree pollen levels along with the AIT- directed nursing to reduce her AIT buildup to 0.05 ml out of red vial weekly until mid February, then re eval. This has been fully explained to the patient, who indicates understanding. Will call pt tomorrow for update. documented in this encounter Plan of Treatment [...] Documents on File Type Date Recorded Patient Production Pattern Maker Expl 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
--- OUTSIDE RECORDS SUMMARY | 2023-04-16 16:12 | External Medical Summary | Summary of Care ---
Author Name Unknown Organization [facility] Address [place] [address] Care Team Providers Care Expander Machine Operator Name Role Phone Gab Smith Primary Care Provider Reason for Visit * Reason Onset Date Comments Allergy Injection 01/31/2021 Encounter Details Date Type Department Care Team Description 01/31/2021 Immunization/In jection Allergy/Immunology [facility] [place] [address] [place] [address] Betty Nurse Allergy [facility] [address] [place] [address] [phone] Allergic rhinitis, unspecified seasonality, unspecified trigger* Allergies Active Allergy Reactions Severity Noted Date Comments [place] (Diagnostic) Anaphylaxis High 05/21/2017 Banana Edema airway High 01/10/2017 Cat Dander Anaphylaxis High 05/21/2017 Corylus Anaphylaxis High 05/21/2017 Latex Rash Low 01/10/2017 Lac Bovis Other (Please comment) 01/16/2017 Mouth tenderness. Peanut (Diagnostic) Anaphylaxis High 05/21/2017 Prednisone Psych complications 01/17/2017 agitation Sesame Seed (Diagnostic) Anaphylaxis High 05/21/2017 Soy Allergy Anaphylaxis High 01/16/2017 [place] Oil Edema airway High 01/10/2017 Wasp Venom [...] SPRAY) 0.65 % nasal spray Administer 1 [place] into nostril as needed for Congestion. 0 [...] mRNA, LNP-s, No Pre serve, 2-Dose Series ([employer]) 01/02/2021,12/12/2020 Diptheria/Tetanus (Adult) 02/10/19982007 HEP A [...] Progress Notes * Liz Cr RN - 01/31/2021 12:22 PM EDT Pre-injection Questionnaire Patient identified [...] Documents on File Type Date Recorded Patient Pension Administrator Expl 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
--- OUTSIDE RECORDS SUMMARY | 2023-04-16 16:12 | External Medical Summary | Summary of Care ---
Author Name Unknown Organization [facility] Address [place] [address] Care Team Providers Care Real Estate Paralegal Name Role Phone Gab Smith Primary Care Provider Reason for Visit * Reason Onset Date Comments Allergy Injection 02/27/2021 Encounter Details Date Type Department Care Team Description 02/27/2021 Immunization/In jection Allergy/Immunology [facility] [place] [address] [place] [address] Betty Nurse [facility] [address] [place] [address] [phone] Allergic rhinitis, unspecified seasonality, unspecified trigger* Allergies Active Allergy Reactions Severity Noted Date Comments [place] (Diagnostic) Anaphylaxis High 05/21/2017 Banana Edema airway High 01/10/2017 Cat Dander Anaphylaxis High 05/21/2017 Corylus Anaphylaxis High 05/21/2017 Latex Rash Low 01/10/2017 Lac Bovis Other (Please comment) 01/16/2017 Mouth tenderness. Peanut (Diagnostic) Anaphylaxis High 05/21/2017 Prednisone Psych complications 01/17/2017 agitation Sesame Seed (Diagnostic) Anaphylaxis High 05/21/2017 Soy Allergy Anaphylaxis High 01/16/2017 [place] Oil Edema airway High 01/10/2017 Wasp Venom [...] SPRAY) 0.65 % nasal spray Administer 1 [place] into nostril as needed for Congestion. 0 [...] mRNA, LNP-s, No Pre serve, 2-Dose Series ([employer]) 01/02/2021,12/12/2020 Diptheria/Tetanus (Adult) 02/10/19982007 HEP A - [...] Progress Notes * Lorene Dhaliwal LPN - 02/27/2021 4:39 PM EDT Pre-injection Questionnaire Patient identified by [...] Documents on File Type Date Recorded Patient Causticiser Expl 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
--- OUTSIDE RECORDS SUMMARY | 2023-04-16 16:13 | External Medical Summary | Summary of Care ---
Author Name Unknown Organization [place] [address] Care Team Providers Care Telecommunications Administrator Name Role Phone Gab Cuevas DO Primary Care Provider [phone] Reason for Referral * Evaluate & Treat - Unlimited Visits (Within 10 days (routine)) Status Reason Specialty Diagnoses / Procedures Referred By Contact Referred To Contact Authorized Specialty Services Required Sleep Medicine / Sleep Disorders Diagnoses Sleep myoclonus Gab Cuevas DO [address] [facility] [place] [address] Question Answer Referral Priority Within 10 days (routine) CAD SLEEP MED ADULT REFERRAL Sleep Apnea Testing and Management Electronically signed by Gab Cuevas DO at Reason for Visit * Reason Comments Chronic Problem Follow Up Encounter Details Date Type Department Care Team Description 11/24/2020 Telemedicine Family Practice [facility] [address] [facility] [place] [address] Gab Cuevas DO [address] [facility] [place] [address] [phone] Recurrent kidney stones*; Iron deficiency anemia due to chronic blood loss; Gastro-esophageal reflux disease without esophagitis; Sleep myoclonus; Mild intermittent asthma without complication Allergies Active Allergy Reactions Severity Noted Date Comments [place] (Diagnostic) Anaphylaxis High 05/21/2017 Banana Edema airway High 01/10/2017 Cat Dander Anaphylaxis High 05/21/2017 Corylus Anaphylaxis High 05/21/2017 Latex Rash Low 01/10/2017 Lac Bovis Other (Please comment) 01/16/2017 Mouth tenderness. Peanut (Diagnostic) Anaphylaxis High 05/21/2017 Prednisone Psych complications 01/17/2017 agitation Sesame Seed (Diagnostic) Anaphylaxis High 05/21/2017 Soy Allergy Anaphylaxis High 01/16/2017 [place] Oil Edema airway High 01/10/2017 Wasp Venom Edema airway High 01/10/2017 documented as of this encounter (statuses as of 11/27/2020) Medications Medication Sig Dispensed Refills Start Date [...] SPRAY) 0.65 % nasal spray Administer 1 [place] into nostril as needed for Congestion. 0 [...] or Wheezing. 18 g 2 11/24/2020 Active Albuterol Sulfate (ALBUTEROL HFA) 108 (90 BASE) MCG/ACT inhaler Inhale 2 Puffs by mouth every 4 hours as needed for Cough, Shortness of Breath or Wheezing. 54 g 1 02/08/2020 1 Discontinue d(Refill) documented as of this encounter (statuses as of 11/27/2020) Active Problems Problem Noted Date Anxiety 03/28/2017 [...] as of this encounter (statuses as of 11/27/2020) Resolved Problems Problem Noted Date Resolved Date Reaction to allergy injection 05/19/2019 Pollen-food allergy syndrome 03/28/201708/2018 Encounter for supervision of other normal pregna ncy 03/13/2011 09/11/2016 Overview: ICD-10 update of inactive term Acute bronchitis, complicated 02/25/2010 Asthma with severity to be determined 02/13/2017 Overview: ICD-10 update of inactive term documented as of this encounter (statuses as of 11/27/2020) Immunizations Name Administration Dates Next Due Diptheria/Tetanus [...] as of this encounter Progress Notes * Gab Cuevas, - 11/27/2020 6:38 PM EDT I was in a hospital or clinic location. After connecting through [email or web address], patient was verified with two unique identifiers. Patient (or authorized legal appliance service representative) was then informed that this was a Telemedicine visit and being conducted confidentially over secure lines. Methods to assure confidentiality were taken. Patient acknowledged consent and understanding of privacy and security of the Telemedicine visit. The patient agreed to participate. Subjective Regina Duncan is a 35 year old female that presents for Chronic Problem Follow Up HPI: Patient is a 35-year-old female with history of chronic kidney stones. Patient is following with urologist. Patient denies urinary frequency dysuria hematuria. Patient has a history of GERD withchronic intermittent heartburn. Patient denies nausea vomiting diarrhea constipation melena hematochezia. Patient complains of fatigue with witnessed leg jerking while sleeping. Patient has a historyof asthma with intermittent shortness breath and wheezing stable on current medication therapy. Patient denies cough or sputum. Patient denies fever chills or sweats. Patient denies nasal congestion sore throat earache. Patient denies chest pain palpitations or edema. Patient denies headache dizziness weakness or numbness. Patient denies skin rash or lesions. Review of systems otherwise negative Objective There were no vitals taken for this visit. There is no height or weight on file to calculate BMI. BP Readings from Last 3 Encounters: 10/21/20 100/68 08/22/20 110/76 03/01/20 120/80 Wt Readings from Last 3 Encounters: 10/21/20 88.5 kg (195 lb) 08/22/20 87.9 kg (193 lb 12.8 oz) 03/01/20 89.8 kg (198 lb) Physical exam General: alert, healthy and no distress Head: Normocephalic Eye Exam: PERRLA, EOMI, sclera clear Skin: skin color, texture, turgor are normal, no rashes or significant lesions The following labs were reviewed today: Urine Culture and Urinalysis Assessment and plan 1. Recurrent kidney stones Increase fluid intake Avoid oxalates Renal ultrasound Follow with urologist 2. Iron deficiency anemia due to chronic blood loss - CBC WITH WBC DIFFERENTIAL; Future - IRON SCREEN, INCLUDING TIBC; Future - FERRITIN; Future 3. Gastro-esophageal reflux disease without esophagitis Famotidine 20 mg 1 tab twice daily [place] high-fiber diet 4. Sleep myoclonus - SLEEP MEDICINE REFERRAL OP - FERRITIN; Future Patient counseled regarding sleep hygiene 5. Mild intermittent asthma without complication - Albuterol Sulfate HFA 108 (90 Base) MCG/ACT Inhalation Aerosol Solution; Inhale 2 Puffs by mouth every 4 hours as needed for Cough, Shortness of Breath or Wheezing. Dispense: 18 g; Refill: 2 Patient counseled regarding asthma action plan Follow up Total time today including reviewing chart before the visit, pertinent labs, imaging reports, face to face time, and documentation time was 20 minutes. The above was discussed and understanding was expressed. Gab Cuevas DO documented in this encounter Plan of Treatment Upcoming Encounters Date Type Specialty Care Team Description 01/11/2021 Telemedicine Pulmonary Theresa Velarde DO [address] [facility] [place] [address] [phone] Scheduled Orders Name Type Priority Associated Diagnoses Orde r Schedule CBC WITH WBC DIFFERENTIAL Lab Routine Iron deficiency anemia due to chronic blood loss Expected: 11/24/2020 (Approximate), Expires: 11/24/2021 IRON SCREEN, INCLUDING TIBC Lab Routine Iron deficiency anemia due to chronic blood loss Expected: 11/24/2020 (Approximate), Expires: 11/24/2021 FERRITIN Lab Routine Iron deficiency anemia due to chronic blood loss Sleep myoclonus Expected: 11/24/2020 (Approximate), Expires: 11/24/2021 Scheduled Referrals Name Type Priority Associated Diagnoses Orde r Schedule SLEEP MEDICINE REFERRAL OP Referral Within 10 days (routine) Sleep myoclonus Ordered: 11/24/2020 Health Maintenance Due Date Last Done Comments [...] as of this encounter Visit Diagnoses Diagnosis Recurrent kidney stones- Primary Calculus of kidney Iron deficiency anemia due to chronic blood loss Iron deficiency anemia secondary to blood loss (chronic) Gastro-esophageal reflux disease without esophagitis Esophageal reflux Sleep myoclonus Myoclonus Mild intermittent asthma without complication Unspecified asthma documented in this encounter Advance Directives Documents on File Type Date Recorded Patient Doctor Of Nurse Anesthesia Expl 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
--- OUTSIDE RECORDS SUMMARY | 2023-04-16 16:13 | External Medical Summary | Summary of Care ---
Author Name Unknown Organization [facility] [place] [address] Care Team Providers Care Cnc Wood Lathe Operator Name Role Phone Gab Smith DO Primary Care Provider [phone] Reason for Visit * Reason Onset Date Comments Test Results 10/12/2020 Encounter Details Date Type Department Care Team Description 10/12/2020 Telephone Family Practice [facility] [address] [facility] [address] Gab Smith DO [address] [facility] [address] [phone] Test Results Allergies Active Allergy Reactions Severity Noted Date Comments [place] (Diagnostic) Anaphylaxis High 05/21/2017 Banana Edema airway High 01/10/2017 Cat Dander Anaphylaxis High 05/21/2017 Corylus Anaphylaxis High 05/21/2017 Latex Rash Low 01/10/2017 Lac Bovis Other (Please comment) 01/16/2017 Mouth tenderness. Peanut (Diagnostic) Anaphylaxis High 05/21/2017 Prednisone Psych complications 01/17/2017 agitation Sesame Seed (Diagnostic) Anaphylaxis High 05/21/2017 Soy Allergy Anaphylaxis High 01/16/2017 [place] Oil Edema airway High 01/10/2017 Wasp Venom Edema airway High 01/10/2017 documented as of this encounter (statuses as of 11/10/2020) Medications Medication Sig Dispensed Refills Start Date [...] SPRAY) 0.65 % nasal spray Administer 1 [place] into nostril as needed for Congestion. 0 [...] (or increased allergy symtpoms). 0 02/08/2020 Active Albuterol Sulfate (ALBUTEROL HFA) 108 (90 BASE) MCG/ACT inhaler Inhale 2 Puffs by mouth every 4 hours as needed for Cough, Shortness of Breath or Wheezing. 54 g 1 02/08/2020 Active EPINEPHrine, anaphylaxis, (AUTOINJECTOR) 0.3 MG/0.3ML SOAJIndications:All ergic reaction, subsequent encounter For a severe reaction: Place orange end against the outer thigh, press firmly, hold in place for 10 seconds and go to the Emergency room. 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 Stated for some reason her phone never showed her she had a voicemail until now. Advised of results. Pt had no additional questions. * Telephone Encounter - Liyah Hyde LPN - 10/14/2020 1:55 PM EST Unable to reach this pt, and looks like she cancelled the Renal US. FYI * Telephone Encounter - Liyah Hyde LPN - 10/13/2020 1:08 PM EST Left message to return call. * Telephone Encounter - Gab Smith DO - 10/12/2020 7:15 PM EST Urinalysis and urine culture were normal. KUB study was also normal showing no discrete kidney stones. Await ultrasound report. Advise continue present medical therapy, increase fluid intake. documented in this encounter Plan of Treatment Upcoming Encounters Date Type Specialty Care Team Description 11/22/2020 Office Visit Family Medicine Gab Smith DO [address] [facility] [place] [address] Health Maintenance Due Date Last Done Comments Pneumococcal Vaccine: Pediatrics (0 to 5 Years) and At-Risk Patients (6 to 64 Years) (1 of 1 - PPSV23) 1991 PAP SMEAR-EVERY 3 YRS,AGES [...] on File Type Date Recorded Patient Manager Of Regulatory Affairs Expl 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
--- OUTSIDE RECORDS SUMMARY | 2023-04-16 16:13 | External Medical Summary | Summary of Care ---
Author Name Unknown Organization [facility] Address [place] [address] Care Team Providers Care Rehab Office Coordinator Name Role Phone Gab Smith DO Primary Care Provider Reason for Visit * Reason Onset Date Comments Medical Records Request 11/10/2020 Encounter Details Date Type Department Care Team Description 11/10/2020 Telephone Family Practice [facility] [address] [facility] [address] Gab Smith DO [address] [facility] [address] [phone] Medical Records Request Allergies Active Allergy Reactions Severity Noted Date Comments [place] (Diagnostic) Anaphylaxis High 05/21/2017 Banana Edema airway High 01/10/2017 Cat Dander Anaphylaxis High 05/21/2017 Corylus Anaphylaxis High 05/21/2017 Latex Rash Low 01/10/2017 Lac Bovis Other (Please comment) 01/16/2017 Mouth tenderness. Peanut (Diagnostic) Anaphylaxis High 05/21/2017 Prednisone Psych complications 01/17/2017 agitation Sesame Seed (Diagnostic) Anaphylaxis High 05/21/2017 Soy Allergy Anaphylaxis High 01/16/2017 [place] Oil Edema airway High 01/10/2017 Wasp Venom Edema airway High 01/10/2017 documented as of this encounter (statuses as of 11/13/2020) Medications Medication Sig Dispensed Refills Start Date [...] SPRAY) 0.65 % nasal spray Administer 1 [place] into nostril as needed for Congestion. 0 [...] 1 Tab by mouth daily. 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 Encounter for supervision of other normal pregna ncy 03/13/2011 09/11/2016 Overview: ICD-10 update of inactive term Acute bronchitis, complicated 02/25/2010 Asthma with severity to be determined 02/13/2017 Overview: ICD-10 update of inactive term documented as of this encounter (statuses as of 11/13/2020) Immunizations Name Administration Dates Next Due Diptheria/Tetanus [...] encounter Miscellaneous Notes * Telephone Encounter - Estelle Velasco LPN - 11/13/2020 11:43 AM EDT Labs and xray faxed * Telephone Encounter - Gab Smith DO - 11/11/2020 5:08 PM EDT Please forward information as requested * Telephone Encounter - Pamela Apodaca OSA - 11/10/2020 3:56 PM EDT Patient requesting a copy of her labs and KUB images be sent to her urologist at [facility] in [place]. Asking for urinalysis, culture, and KUB from 10/07/20 be sent to Beverly Morillo. documented in this encounter Plan of Treatment Upcoming Encounters Date Type Specialty Care Team Description 11/22/2020 Office Visit Family Medicine Gab Smith DO [address] [facility] [place] [address] [phone] Health Maintenance Due Date Last Done Comments [...] Documents on File Type Date Recorded Patient Tooling Inspector Expl 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
--- OUTSIDE RECORDS SUMMARY | 2023-04-16 16:13 | External Medical Summary ---
Author Name Unknown Address Unknown Organization K09:[facility] [place] [address] Laboratory Report Ordering Provider Test Date Status OLGA GIFFORD 11/29/2020 12:17:56 Final Observation Date Value Abnormality Reference (Units ) Status WBC, Total 11/29/2020 12:17:56 5.23 4.00-10.8 0 (K/uL) Final RBC 11/29/2020 12:17:56 4.16 3.85-5.15 (M/uL) Final Hemoglobin 11/29/2020 12:17:56 12.5 12.0-15.3 (g/dL) Final HCT 11/29/2020 12:17:56 39.2 36.0-45.2 (%) Final MCV 11/29/2020 12:17:56 94.2 81.5-97.5 (fL) Final MCH 11/29/2020 12:17:56 30.0 27.0-34.0 (pg) Final MCHC 11/29/2020 12:17:56 31.9 Below low normal 32. 0-36.0 (g/dL) Final RDW 11/29/2020 12:17:56 13.0 11.5-15.5 (%) Final Platelets 11/29/2020 12:17:56 210 140-400 (K /uL) Final MPV 11/29/2020 12:17:56 10.5 6.6-11.1 ( fL) Final Performing Location [facility] [place] [address]
--- OUTSIDE RECORDS SUMMARY | 2023-04-16 16:13 | External Medical Summary ---
Author Name Unknown Address Unknown Organization K09:[facility] [place] [place] [address] Laboratory Report Ordering Provider Test Date Status OLGA GIFFORD 11/29/2020 12:17:56 Final Observation Date Value Abnormality Reference (Units ) Status SYNC LEUKOCYTES IN BLOOD BY AUTOMATED COUNT 11/29/2020 12:17:56 5.23 4.00-10.80 (K/uL) Final Segs 11/29/2020 12:17:56 50.9 40.0-75.0 (%) Final Lymphs % 11/29/2020 12:17:56 40.3 18.0-42.0 (%) Final Monos 11/29/2020 12:17:56 7.3 1.0-11.0 (%) Final Eosinophils 11/29/2020 12:17:56 1.1 0.0-6.0 (%) Final Basos 11/29/2020 12:17:56 0.4 0.0-2.0 (%) Final Absolute Segs 11/29/2020 12:17:56 2.66 1.80-7.70 (K/uL) Final Lymphs, absolute 11/29/2020 12:17:56 2.11 1.00-4.80 (K/ul) Final Monos, Abs 11/29/2020 12:17:56 0.38 0.00-1.10 (K/uL) Final Eos, Abs 11/29/2020 12:17:56 0.06 0.00-0.70 (K/uL) Final Basos, Abs 11/29/2020 12:17:56 0.02 0.00-0.20 (K/uL) Final Performing Location [facility] [place] [address]
--- OUTSIDE RECORDS SUMMARY | 2023-04-16 16:13 | External Medical Summary | Summary of Care ---
Author Name Unknown Organization [facility] Address [place] [address] Care Team Providers Care Medicare Contact Specialist Name Role Phone LuisGab dash Primary Care Provider Reason for Visit * Reason Onset Date Comments Allergy Injection 11/22/2020 Encounter Details Date Type Department Care Team Description 11/22/2020 Immunization/In jection Allergy/Immunology [facility] [address] [place] [address] Betty Nurse Allergy [facility] [address] [place] [address] [phone] Allergic rhinitis, unspecified seasonality, unspecified trigger* Allergies Active Allergy Reactions Severity Noted Date Comments [place] (Diagnostic) Anaphylaxis High 05/21/2017 Banana Edema airway High 01/10/2017 Cat Dander Anaphylaxis High 05/21/2017 Corylus Anaphylaxis High 05/21/2017 Latex Rash Low 01/10/2017 Lac Bovis Other (Please comment) 01/16/2017 Mouth tenderness. Peanut (Diagnostic) Anaphylaxis High 05/21/2017 Prednisone Psych complications 01/17/2017 agitation Sesame Seed (Diagnostic) Anaphylaxis High 05/21/2017 Soy Allergy Anaphylaxis High 01/16/2017 [place] Oil Edema airway High 01/10/2017 Wasp Venom Edema airway High 01/10/2017 documented as of this encounter (statuses as of 11/22/2020) Medications Medication Sig Dispensed Refills Start Date [...] 0.65 % nasal spray Administer 1 [place] into nostril as needed for Congestion. 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 Encounter for supervision of other normal pregna ncy 03/13/2011 09/11/2016 Overview: ICD-10 update of inactive term Acute bronchitis, complicated 02/25/2010 Asthma with severity to be determined 02/13/2017 Overview: ICD-10 update of inactive term documented as of this encounter (statuses as of 11/22/2020) Immunizations Name Administration Dates Next Due Diptheria/Tetanus [...] Progress Notes * Marilee Bobby LPN - 11/22/2020 10:53 AM EDT Pre-injection Questionnaire Patient identified [...] Encounters Date Type Specialty Care Team Description 11/24/2020 Telemedicine Family Medicine Gab Smith DO [address] [facility] [place] [address] [phone] Health Maintenance Due Date Last Done Comments [...] Documents on File Type Date Recorded Patient Garment Examiner Expl 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
--- OUTSIDE RECORDS SUMMARY | 2023-04-16 16:13 | External Medical Summary | Summary of Care ---
Author Name Unknown Organization [facility] Address [place] [address] Care Team Providers Care Commercial Account Officer Name Role Phone LuisGab dash Primary Care Provider [phone] Reason for Visit * Reason Onset Date Comments Allergy Injection 11/15/2020 Encounter Details Date Type Department Care Team Description 11/15/2020 Immunization/In jection Allergy/Immunology [facility] [address] [place] [address] Betty Nurse Allergy [facility] [address] [place] [address] [phone] Allergic rhinitis, unspecified seasonality, unspecified trigger* Allergies Active Allergy Reactions Severity Noted Date Comments [place] (Diagnostic) Anaphylaxis High 05/21/2017 Banana Edema airway High 01/10/2017 Cat Dander Anaphylaxis High 05/21/2017 Corylus Anaphylaxis High 05/21/2017 Latex Rash Low 01/10/2017 Lac Bovis Other (Please comment) 01/16/2017 Mouth tenderness. Peanut (Diagnostic) Anaphylaxis High 05/21/2017 Prednisone Psych complications 01/17/2017 agitation Sesame Seed (Diagnostic) Anaphylaxis High 05/21/2017 Soy Allergy Anaphylaxis High 01/16/2017 [place] Oil Edema airway High 01/10/2017 Wasp Venom Edema airway High 01/10/2017 documented as of this encounter (statuses as of 11/15/2020) Medications Medication Sig Dispensed Refills Start Date [...] SPRAY) 0.65 % nasal spray Administer 1 [place] into nostril as needed for Congestion. 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 No Today's peak flow - LMP 10/21/2020 (Approximate) *Allergy Injection documentation located in Allergy Injections CPSL Flowsheet* documented in this encounter Plan of Treatment Upcoming Encounters Date Type Specialty Care Team Description 11/22/2020 Office Visit Family Medicine Gab Smith DO [address] [facility] [place] [address] Health Maintenance Due Date Last Done [...] Documents on File Type Date Recorded Patient Respite Care Provider Expl 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
--- OUTSIDE RECORDS SUMMARY | 2023-04-16 16:13 | External Medical Summary | Summary of Care ---
Author Name Unknown Organization [facility] Address [place] [address] Care Team Providers Care Manager Of Digital Name Role Phone Gab Smith Primary Care Provider [phone] Reason for Visit * Reason Onset Date Comments Allergy Injection 11/08/2020 Encounter Details Date Type Department Care Team Description 11/08/2020 Immunization/In jection Allergy/Immunology [facility] [address] [place] [address] Betty Nurse Allergy [facility] [address] [place] [address] [phone] Allergic rhinitis, unspecified seasonality, unspecified trigger*; Intermittent asthma with reliever use up to twice per week without complication Allergies Active Allergy Reactions Severity Noted Date Comments [place] (Diagnostic) Anaphylaxis High 05/21/2017 Banana Edema airway High 01/10/2017 Cat Dander Anaphylaxis High 05/21/2017 Corylus Anaphylaxis High 05/21/2017 Latex Rash Low 01/10/2017 Lac Bovis Other (Please comment) 01/16/2017 Mouth tenderness. Peanut (Diagnostic) Anaphylaxis High 05/21/2017 Prednisone Psych complications 01/17/2017 agitation Sesame Seed (Diagnostic) Anaphylaxis High 05/21/2017 Soy Allergy Anaphylaxis High 01/16/2017 [place] Oil Edema airway High 01/10/2017 Wasp Venom Edema airway High 01/10/2017 documented as of this encounter (statuses as of 11/09/2020) Medications Medication Sig Dispensed Refills Start Date [...] SPRAY) 0.65 % nasal spray Administer 1 [place] into nostril as needed for Congestion. 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 Antihistamines taken prior to injection? yes (If no, may offer the patient Benadryl at 0.5mg/kg rounded to nearest 12.5mg) 2. Have you had increased asthma symptoms (chest tightness, wheezing, coughing, shortness of breath) in the past week? Yes Provider aware PFT done 3. Have you had allergy symptoms,a cold, respiratory tract infection,fever or flu-like symptoms in the past week? Yes Provider aware PFT done 4. Did you have any increased allergy or asthma symptoms, hives, generalized itching within 12 hours of receiving your last injection or swelling that persisted in the next day? Yes 5. Are you on any new medications [...] Procedure Name Priority Date/Time Associated Diagnosis Comments BASIC SPIROMETRY Routine 11/08/2020 12:2 8 PM EDT Intermittent asthma with reliever use up to twice per week without complication documented in this encounter Results * BASIC SPIROMETRY (11/08/2020 12:28 PM EDT) FVC Actual Pre 4.04 L [facility] FVC Actual Pre %Predict 104 % [facility] FEV1 Actual Pre 3.29 L [facility] FEV1 Actual Pre %Predict 102 % [facility] FEV1/FVC Actual Pre 81 % [facility] FEF 25-75% Actual Pre 3.07 L/sec RUDDY LAZCANO ZE FEF 25-75% Actual Pre %Predict 90 % MIMaikol JACKIE LOWE Specimen Narrative Performed At The FVC, FEV1, FEV1/FVC ratio and XKX91-04% are within normal limits.Conclusions: The results are within normal limits.Pulmonary Function Diagnosis:Normal SpirometryThis preliminary report should not be used clinically unless reviewed and signed by a physician.This interpretation has been electronically signed: Valeriy Milton MD 11/09/2020 09:04:07 AM RUDDY LOWE RUDDY LOWE documented in this encounter Visit Diagnoses Diagnosis Allergic rhinitis, unspecified seasonality, unspecified trigger- Primary Intermittent asthma with reliever use up to twice per week without complication documented in this encounter Advance Directives Documents on File Type Date Recorded Patient Nutrition Specialist Expl 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
--- OUTSIDE RECORDS SUMMARY | 2023-04-16 16:14 | External Medical Summary | Summary of Care ---
Author Name Unknown Organization [place] [address] Care Team Providers Care Furnace And Wash Equipment Operator Name Role Phone LuisGab dash Primary Care Provider [phone] Reason for Visit * Reason Comments Allergy Return Encounter Details Date Type Department Care Team Description 10/21/2020 Office Visit Allergy/Immunology [facility] Betty [place] [address] [place] [address] Beverly Del Angel PA-C 200 [facility] [place] [address] [phone] Chronic seasonal allergic rhinitis due to pollen*; Allergic rhinitis due to dust; Chronic seasonal allergic rhinitis due to fungal spores; Non-seasonal allergic rhinitis due to animal hair and dander; Mild intermittent extrinsic asthma without complication; Peanut allergy; Tree nut allergy; Adverse food reaction, subsequent encounter Allergies Active Allergy Reactions Severity Noted Date Comments [place] (Diagnostic) Anaphylaxis High 05/21/2017 Banana Edema airway High 01/10/2017 Cat Dander Anaphylaxis High 05/21/2017 Corylus Anaphylaxis High 05/21/2017 Latex Rash Low 01/10/2017 Lac Bovis Other (Please comment) 01/16/2017 Mouth tenderness. Peanut (Diagnostic) Anaphylaxis High 05/21/2017 Prednisone Psych complications 01/17/2017 agitation Sesame Seed (Diagnostic) Anaphylaxis High 05/21/2017 Soy Allergy Anaphylaxis High 01/16/2017 Franklin Oil Edema airway High 01/10/2017 Wasp Venom Edema airway High 01/10/2017 documented as of this encounter (statuses as of 10/24/2020) Medications Medication Sig Dispensed Refills Start Date [...] SPRAY) 0.65 % nasal spray Administer 1 Aubrey into nostril as needed for Congestion. 0 [...] as of this encounter (statuses as of 10/24/2020) Active Problems Problem Noted Date Anxiety 03/28/2017 [...] as of this encounter (statuses as of 10/24/2020) Resolved Problems Problem Noted Date Resolved Date Reaction to allergy injection 05/19/2019 Pollen-food allergy syndrome 03/28/201708/2018 Encounter for supervision of other normal pregna ncy 03/13/2011 09/11/2016 Overview: ICD-10 update of inactive term Acute bronchitis, complicated 02/25/2010 Asthma with severity to be determined 02/13/2017 Overview: ICD-10 update of inactive term documented as of this encounter (statuses as of 10/24/2020) Immunizations Name Administration Dates Next Due Diptheria/Tetanus [...] Sign Reading Time Taken Comments Blood Pressure 100/68 10/21/2020 1:13 PM EST Pulse 72 10/21/2020 1:13 PM EST Temperature 37 C (98.6 F) 10/21/2020 1:13 PM EST Respiratory Rate 16 10/21/2020 1:13 PM EST Oxygen Saturation - - Inhaled Oxygen Concentration - - Weight 88.5 kg (195 lb) 10/21/2020 1:13 PM EST Height 165.4 cm (5' 5.1") 10/21/2020 1:13 PM EST Body Mass Index 32.35 10/21/2020 1:13 PM EST documented in this encounter Progress Notes * Beverly Del Angel PA-C - 10/24/2020 7:38 AM EST SUBJECTIVE: Regina was evaluated for follow-up of her allergic rhinitis, intermittent asthma and food allergies. She is concerned about her reactions to her immunotherapy. She had started immunotherapy but then did not come in because of the COVID pandemic. She resumed immunotherapy again from the beginning andis building up toward her maintenance dose. She is getting injections from the 1 to 10 concentration currently. She has been having large local reactions with some of her injections. After her injection 3 weeks ago she had a sudden onset of sneezing itchy eyes and a large local reaction. This sneezing and itchy eyes did not occur until several hours after the injection. She took Benadryl and another Claritinand her symptoms resolved. After her last injection she felt well during her 30 minutes observation time and went home. Again several hours later she felt her allergy symptoms in general and she felt like there could be some wheezing in her chest though she reports that it was not anything significant. She did take albuterolas a precaution. Again she had a large local reaction that she treated with Benadryl. Her asthma symptoms remain intermittent overall and mostly triggered by exercise. She is not havinga lot in the way of nasal symptoms. She has had no other allergic reactions. She continues on Claritin daily. She has not needed her EpiPen for any accidental ingestions of foods to which she is sensitive in the interval. She continues to avoid peanuts, tree nuts, mandarin oranges, and sesame seeds. Per last office note: Last significant allergic reaction was in mid January 2020. She was outside for several hours that day and had in fact been doing a lot of outdoor activities that week.. Her throatfelt uncomfortable, initially described as pain but then says it felt like swelling. She also had some nasal congestion and her ears were itchy. She took some Benadryl, Pepcid and used her albuterol i nhaler which helped to some degree. She then took some Claritin and within an hour her symptoms were resolved. The next morning she woke up and still had some mild nasal congestion still had that feeling in her throat like it was swelling. She took some Benadryl, Pepcid and Claritin again, Symptomsseem to slowly dissipate over the next 2 days with just repeated Claritin and Benadryl. Symptoms never became severe enough that she felt need for urgent care visit to an emergency department. She also has history of reaction to a wasp sting at approximately age 8. Multiple stings may have been involved. She did have significant large local swelling of the lower extremities. She also developed chest tightness, shortness of breath and some throat swelling. She was never tested for insect sting allergy the time. She has not had any recent stings. Asthma control test obtained on October 21, [...] Current Outpatient Medications Medication Sig Dispense Refill Multi-Vitamin Gummies Oral Tablet Chewable Take 1 Tab by mouth daily. EPINEPHrine, anaphylaxis, (AUTOINJECTOR) 0.3 MG/0.3ML SOAJ For a severe reaction: Place orange end against the outer thigh, press firmly, hold in place for 10 seconds and go to the Emergency room. 2 Each 3 Albuterol Sulfate (ALBUTEROL HFA) 108 (90 BASE) MCG/ACT inhaler Inhale 2 Puffs by mouth every 4hours as needed for Cough, Shortness of Breath or Wheezing. 54 g 1 famotidine (PEPCID) 20 MG Tablet Take 1 [...] SPRAY) 0.65 % nasal spray Administer 1 Aubrey into nostril as needed for Congestion. diphenhydrAMINE (BENADRYL) 25 MG Capsule Take 2 capsules at onset suspected allergic reaction; may repeat every 4-6 hrs. as needed. 40 Cap 1 Cranberry 250 MG CAPS Take 1 Tab by mouth 2 times a day. Indications: taking 500mg a day Review of patient's allergies indicates: Allergen Reactions [place] (Diagnostic) Anaphylaxis Banana Edema airway Cat Dander Anaphylaxis [place] Tree Pollen [Corylus] Anaphylaxis Peanut (Diagnostic) Anaphylaxis Sesame Seed (Diagnostic) Anaphylaxis Soy Allergy Anaphylaxis [place] Oil Edema airway Wasp Venom Edema airway [...] floor and heart hardwood. 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 Blood Pressure 100/68 (BP Site: Right Arm, BP Position: Sitting, BP Cuff Size: Large) | Pulse 72 | Temperature 37 C (98.6 F) (Tympanic) | Respiration 16 | Height 1.654 m (5' 5.1") | Weight 88.5 kg (195 lb) | Last Menstrual Period 10/21/2020 (Approximate) | No | Body Mass Index 32.35 kg/m | Body Surface Area 2.02 m PHYSICAL EXAM: No Acute Distress: Conjunctiva: [...] Allergic rhinitis due to dust J30.89 3. Chronic seasonal allergic rhinitis due to fungal spores J30.2 4. Non-seasonal allergic rhinitis due to animal hair and dander J30.81 5. Mild intermittent extrinsic asthma without complication J45.20 6. Peanut allergy Z91.010 7. Tree nut allergy Z91.018 8. Adverse food reaction, subsequent encounter T78.1XXD PLAN: Avoidance measures regarding pollens, molds, dust mites and animal danders should be continued. She started immunotherapy in 2017 but then did not come in for several months once the COVID pandemic started. She resumed immunotherapy from the beginning in February of 2020. She is continuing to buildup towards the maintenance dose and is having large local reactions. She was advised that she can take Benadryl and ibuprofen to help with the discomfort. If the large local reactions become too bothersome we can adjust her schedule. She was also advised that there have been several studies to prove that large local reactions do not increase your risk of systemic reactions. She also had some allergy symptoms several hours after her last 2 injections that she was able to treat with oral antihistamines. The last 1 was the feeling of wheezing but no actual wheezing. As a precaution we will update spirometry before her next injection but given that these symptoms occurredhours after her injections we do not think it is a reaction to her injections and she can continue to build up towards the maintenance dose. She has a history of significant allergic [...] week and especially the day prior tothe release of the reaction most likely this was pollen related [...] food allergies. Follow Up: Return in about 1 year (around 10/21/2021). Beverly Del Angel, Physician Manpower Development Specialist Manager Allergy and Immunology [facility] The patient is being seen in follow up for the treatment of J30.1 Chronic seasonal allergic rhinitis due to pollen (primary encounter diagnosis) J30.89 Allergic rhinitis due to dust J30.2 Chronic seasonal allergic rhinitis due to fungal spores J30.81 Non-seasonal allergic rhinitis due to animal hair and dander J45.20 Mild intermittent extrinsic asthma without complication Z91.010 Peanut allergy Z91.018 Tree nut allergy T78.1XXD Adverse food reaction, subsequent encounter incident to the plan of care established by . Type of Supervision: (This note was completed using the dictation program Fluency Direct. As such, there may be misspellings, word substitutions, or other variations that should not change the essence of the clinical content of this encounter note.If there is need for further clarification, please direct questions to the provider listed above.) documented in this encounter Nursing Notes * Liz Cr RN - 10/21/2020 1:12 PM EST The pt has been properly identified by confirmation of name and date of . Discuss AIT and possible reaction/side effects documented in this encounter Plan of Treatment [...] dust Allergic rhinitis due to other allergen Chronic seasonal allergic rhinitis due to fungal spores Non-seasonal allergic rhinitis due to animal hair and dander Mild intermittent extrinsic asthma without complication Peanut allergy Allergy to peanuts Tree nut allergy Allergy to other foods Adverse food reaction, subsequent encounter documented in this encounter Advance Directives Documents on File Type Date Recorded Patient Splicer Helper Expl 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
--- OUTSIDE RECORDS SUMMARY | 2023-04-16 16:14 | External Medical Summary | Summary of Care ---
Author Name Unknown Organization [facility] Address [place] [address] Care Team Providers Care Production Manager Name Role Phone LuisGab dash Primary Care Provider [phone] Reason for Visit * Reason Onset Date Comments Allergy Injection 10/14/2020 Encounter Details Date Type Department Care Team Description 10/14/2020 Immunization/In jection Allergy/Immunology [facility] [place] [address] [place] [address] Betty Nurse Allergy [facility] [address] [place] [address] [phone] Allergic rhinitis, unspecified seasonality, unspecified trigger* Allergies Active Allergy Reactions Severity Noted Date Comments [place] (Diagnostic) Anaphylaxis High 05/21/2017 Banana Edema airway High 01/10/2017 Cat Dander Anaphylaxis High 05/21/2017 Corylus Anaphylaxis High 05/21/2017 Latex Rash Low 01/10/2017 Lac Bovis Other (Please comment) 01/16/2017 Mouth tenderness. Peanut (Diagnostic) Anaphylaxis High 05/21/2017 Prednisone Psych complications 01/17/2017 agitation Sesame Seed (Diagnostic) Anaphylaxis High 05/21/2017 Soy Allergy Anaphylaxis High 01/16/2017 [place] Oil Edema airway High 01/10/2017 Wasp Venom Edema airway High 01/10/2017 documented as of this encounter (statuses as of 10/14/2020) Medications Medication Sig Dispensed Refills Start Date [...] SPRAY) 0.65 % nasal spray Administer 1 [place] into nostril as needed for Congestion. 0 [...] as of this encounter (statuses as of 10/14/2020) Active Problems Problem Noted Date Anxiety 03/28/2017 [...] as of this encounter (statuses as of 10/14/2020) Resolved Problems Problem Noted Date Resolved Date Reaction to allergy injection 05/19/2019 Pollen-food allergy syndrome 03/28/201708/2018 Encounter for supervision of other normal pregna ncy 03/13/2011 09/11/2016 Overview: ICD-10 update of inactive term Acute bronchitis, complicated 02/25/2010 Asthma with severity to be determined 02/13/2017 Overview: ICD-10 update of inactive term documented as of this encounter (statuses as of 10/14/2020) Immunizations Name Administration Dates Next Due Diptheria/Tetanus [...] Progress Notes * Lorene Dhaliwal LPN - 10/14/2020 11:50 AM EST Pre-injection Questionnaire Patient identified by [...] that persisted in the next day? Yes arm swelling and itching at site 5. Are you on any new medications [...] Documents on File Type Date Recorded Patient Ticket Counter Expl 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
--- OUTSIDE RECORDS SUMMARY | 2023-04-16 16:14 | External Medical Summary | Summary of Care ---
Author Name Unknown Organization [place] [address] Care Team Providers Care Grain Cleaner And Transfer Operator Name Role Phone Gab Smith DO Primary Care Provider [phone] Reason for Visit * Reason Onset Date Comments Test Results 10/12/2020 Encounter Details Date Type Department Care Team Description 10/12/2020 Telephone Family Practice [facility] [address] [facility] [address] Gab Smith DO [address] [facility] [address] [phone] Test Results Allergies Active Allergy Reactions Severity Noted Date Comments [employer] (Diagnostic) Anaphylaxis High 05/21/2017 Banana Edema airway High 01/10/2017 Cat Dander Anaphylaxis High 05/21/2017 Corylus Anaphylaxis High 05/21/2017 Latex Rash Low 01/10/2017 Lac Bovis Other (Please comment) 01/16/2017 Mouth tenderness. Peanut (Diagnostic) Anaphylaxis High 05/21/2017 Prednisone Psych complications 01/17/2017 agitation Sesame Seed (Diagnostic) Anaphylaxis High 05/21/2017 Soy Allergy Anaphylaxis High 01/16/2017 [place] Oil Edema airway High 01/10/2017 Wasp Venom [...] SPRAY) 0.65 % nasal spray Administer 1 [place] into nostril as needed for Congestion. 0 [...] encounter Miscellaneous Notes * Telephone Encounter - Liyah Hyde LPN [...] Documents on File Type Date Recorded Patient Research Methods Instructor Expl 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
--- OUTSIDE RECORDS SUMMARY | 2023-04-16 16:14 | External Medical Summary | Summary of Care ---
Author Name Unknown Organization [place] [address] Care Team Providers Care Search Director Name Role Phone LuisGab dash Primary Care Provider [phone] Reason for Visit * Reason Comments Allergy Return Encounter Details Date Type Department Care Team Description 10/21/2020 Office Visit Allergy/Immunology [facility] Betty [place] [address] [place] [address] Beverly Del Angel PA-C 200 [facility] [place] [address] [phone] Chronic seasonal allergic rhinitis due to pollen*; Allergic rhinitis due to dust; Chronic seasonal allergic rhinitis due to fungal spores; Non-seasonal allergic rhinitis due to animal hair and dander; Mild intermittent extrinsic asthma without complication; Peanut allergy; Tree nut allergy; Adverse food reaction, subsequent encounter Allergies Active Allergy Reactions Severity Noted Date Comments [place] (Diagnostic) Anaphylaxis High 05/21/2017 Banana Edema airway High 01/10/2017 Cat Dander Anaphylaxis High 05/21/2017 Corylus Anaphylaxis High 05/21/2017 Latex Rash Low 01/10/2017 Lac Bovis Other (Please comment) 01/16/2017 Mouth tenderness. Peanut (Diagnostic) Anaphylaxis High 05/21/2017 Prednisone Psych complications 01/17/2017 agitation Sesame Seed (Diagnostic) Anaphylaxis High 05/21/2017 Soy Allergy Anaphylaxis High 01/16/2017 [place] Oil Edema airway High 01/10/2017 Wasp Venom [...] SPRAY) 0.65 % nasal spray Administer 1 [place] into nostril as needed for Congestion. 0 [...] SPRAY) 0.65 % nasal spray Administer 1 [place] into nostril as needed for Congestion. diphenhydrAMINE (BENADRYL) 25 MG Capsule Take 2 capsules at onset suspected allergic reaction; may repeat every 4-6 hrs. as needed. 40 Cap 1 Cranberry 250 MG CAPS Take 1 Tab by mouth 2 times a day. Indications: taking 500mg a day Review of patient's allergies indicates: Allergen Reactions Pease (Diagnostic) Anaphylaxis Banana Edema airway Cat Dander Anaphylaxis [place] Tree Pollen [Corylus] Anaphylaxis Peanut (Diagnostic) Anaphylaxis Sesame Seed (Diagnostic) Anaphylaxis Soy Allergy Anaphylaxis [place] Oil Edema airway Wasp Venom Edema airway [...] floor and heart hardwood. 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 Blood [...] year (around 10/21/2021). Beverly Del Angel, Physician Chemical Cell Changer Allergy and Immunology [facility] The patient is being seen in follow [...] Documents on File Type Date Recorded Patient It Senior Software Engineer Java Expl 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
--- OUTSIDE RECORDS SUMMARY | 2023-04-16 16:14 | External Medical Summary | Summary of Care ---
Author Name Unknown Organization [facility] Address [place] [address] Care Team Providers Care It Application Architect Name Role Phone LuisGab dash Primary Care Provider Reason for Visit * Reason Onset Date Comments Allergy Injection 10/07/2020 Encounter Details Date Type Department Care Team Description 10/07/2020 Immunization/In jection Allergy/Immunology [facility] [place] [address] [place] [address] Betty Nurse Allergy [facility] [address] [place] [address] [phone] Allergic rhinitis, unspecified seasonality, unspecified trigger* Allergies Active Allergy Reactions Severity Noted Date Comments [place] (Diagnostic) Anaphylaxis High 05/21/2017 Banana Edema airway High 01/10/2017 Cat Dander Anaphylaxis High 05/21/2017 Corylus Anaphylaxis High 05/21/2017 Latex Rash Low 01/10/2017 Lac Bovis Other (Please comment) 01/16/2017 Mouth tenderness. Peanut (Diagnostic) Anaphylaxis High 05/21/2017 Prednisone Psych complications 01/17/2017 agitation Sesame Seed (Diagnostic) Anaphylaxis High 05/21/2017 Soy Allergy Anaphylaxis High 01/16/2017 [place] Oil Edema airway High 01/10/2017 Wasp Venom Edema airway High 01/10/2017 documented as of this encounter (statuses as of 10/17/2020) Medications Medication Sig Dispensed Refills Start Date [...] 0.65 % nasal spray Administer 1 [place] into nostril as needed for Congestion. 0 [...] as of this encounter (statuses as of 10/17/2020) Active Problems Problem Noted Date Anxiety 03/28/2017 [...] as of this encounter (statuses as of 10/17/2020) Resolved Problems Problem Noted Date Resolved Date Reaction to allergy injection 05/19/2019 Pollen-food allergy syndrome 03/28/201708/2018 Encounter for supervision of other normal pregna ncy 03/13/2011 09/11/2016 Overview: ICD-10 update of inactive term Acute bronchitis, complicated 02/25/2010 Asthma with severity to be determined 02/13/2017 Overview: ICD-10 update of inactive term documented as of this encounter (statuses as of 10/17/2020) Immunizations Name Administration Dates Next Due Diptheria/Tetanus [...] Progress Notes * Liz Cr RN - 10/07/2020 12:01 PM EST Pre-injection Questionnaire Patient identified [...] Injections CPSL Flowsheet* documented in this encounter Miscellaneous Notes * Addendum Note - Amber Varela RN - 10/17/2020 1:37 PM EST Addended by: AMBER VARELA on: 10/17/2020 01:37 PM Modules accepted: Level of Service documented in this encounter Plan of Treatment [...] on File Type Date Recorded Patient Manager Hi Expl 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
--- OUTSIDE RECORDS SUMMARY | 2023-04-16 16:14 | External Medical Summary | Summary of Care ---
Author Name Unknown Organization [facility] Address [place] [address] Care Team Providers Care Machine Stitcher Name Role Phone LuisGab dash Primary Care Provider [phone] Reason for Visit * Reason Onset Date Comments Allergy Injection 09/23/2020 Encounter Details Date Type Department Care Team Description 09/23/2020 Immunization/In jection Allergy/Immunology [facility] [place] [address] [place] [address] [place] Nurse Allergy [facility] [address] [place] [address] [phone] Allergic rhinitis, unspecified seasonality, unspecified trigger* Allergies Active Allergy Reactions Severity Noted Date Comments [place] (Diagnostic) Anaphylaxis High 05/21/2017 Banana Edema airway High 01/10/2017 Cat Dander Anaphylaxis High 05/21/2017 Corylus Anaphylaxis High 05/21/2017 Latex Rash Low 01/10/2017 Lac Bovis Other (Please comment) 01/16/2017 Mouth tenderness. Peanut (Diagnostic) Anaphylaxis High 05/21/2017 Prednisone Psych complications 01/17/2017 agitation Sesame Seed (Diagnostic) Anaphylaxis High 05/21/2017 Soy Allergy Anaphylaxis High 01/16/2017 [place] Oil Edema airway High 01/10/2017 Wasp Venom [...] SPRAY) 0.65 % nasal spray Administer 1 [place] into nostril as needed for Congestion. 0 [...] Progress Notes * Lorene Dhaliwal LPN - 09/23/2020 12:46 PM EST Pre-injection Questionnaire Patient identified by [...] Addendum Note - Amber Varela RN - 10/14/2020 4:10 PM EST Addended by: AMBER VARELA on: 10/14/2020 04:10 PM Modules accepted: Level of Service documented [...] Documents on File Type Date Recorded Patient Electrical Engineering Professor Expl 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
--- OUTSIDE RECORDS SUMMARY | 2023-04-16 16:14 | External Medical Summary | Summary of Care ---
Author Name Unknown Organization [facility] Address [place] [address] Care Team Providers Care Shove Up Name Role Phone LuisGab dash Primary Care Provider Reason for Visit * Reason Onset Date Comments Allergy Injection 09/30/2020 Encounter Details Date Type Department Care Team Description 09/30/2020 Immunization/In jection Allergy/Immunology [facility] [address] [place] [address] Betty Nurse Allergy [facility] [address] [place] [address] [phone] Allergic rhinitis, unspecified seasonality, unspecified trigger* Allergies Active Allergy Reactions Severity Noted Date Comments [place] (Diagnostic) Anaphylaxis High 05/21/2017 Banana Edema airway High 01/10/2017 Cat Dander Anaphylaxis High 05/21/2017 Corylus Anaphylaxis High 05/21/2017 Latex Rash Low 01/10/2017 Lac Bovis Other (Please comment) 01/16/2017 Mouth tenderness. Peanut (Diagnostic) Anaphylaxis High 05/21/2017 Prednisone Psych complications 01/17/2017 agitation Sesame Seed (Diagnostic) Anaphylaxis High 05/21/2017 Soy Allergy Anaphylaxis High 01/16/2017 [place] Oil Edema airway High 01/10/2017 Wasp Venom [...] SPRAY) 0.65 % nasal spray Administer 1 [place] into nostril as needed for Congestion. 0 [...] Progress Notes * Lorene Dhaliwal LPN - 09/30/2020 12:18 PM EST Pre-injection Questionnaire Patient identified by [...] Note - Amber Varela RN - 10/17/2020 12:37 PM EST Addended by: AMBER VARELA on: 10/17/2020 12:37 PM Modules accepted: Level of Service documented [...] Documents on File Type Date Recorded Patient Fire Warden Expl 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
--- OUTSIDE RECORDS SUMMARY | 2023-04-16 16:14 | External Medical Summary | Summary of Care ---
Author Name Unknown Organization [place] [address] Care Team Providers Care Ammonium Nitrate Crystallizer Name Role Phone Gab Smith DO Primary Care Provider Reason for Visit * Reason Onset Date Comments Advice 10/19/2020 Encounter Details Date Type Department Care Team Description 10/19/2020 Telephone Allergy/Immunology [facility] [address] [place] [address] Valeriy Milton MD 200 [place] [address] [phone] Advice Allergies Active Allergy Reactions Severity Noted Date Comments [place] (Diagnostic) Anaphylaxis High 05/21/2017 Banana Edema airway High 01/10/2017 Cat Dander Anaphylaxis High 05/21/2017 Corylus Anaphylaxis High 05/21/2017 Latex Rash Low 01/10/2017 Lac Bovis Other (Please comment) 01/16/2017 Mouth tenderness. Peanut (Diagnostic) Anaphylaxis High 05/21/2017 Prednisone Psych complications 01/17/2017 agitation Sesame Seed (Diagnostic) Anaphylaxis High 05/21/2017 Soy Allergy Anaphylaxis High 01/16/2017 [place] Oil Edema airway High 01/10/2017 Wasp Venom Edema airway High 01/10/2017 documented as of this encounter (statuses as of 10/19/2020) Medications Medication Sig Dispensed Refills Start Date [...] SPRAY) 0.65 % nasal spray Administer 1 [place] into nostril as needed for Congestion. 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 * Telephone Encounter - Beverly Del Angel PA-C - 10/19/2020 2:36 PM EST Yes Zaditor (ketotofin) or Patanol (olopatadine) are both available OTC now. * Telephone Encounter - Lorene Dhaliwal LPN - 10/19/2020 2:27 PM EST Ok for pt to get OTC Zaditor? * Telephone Encounter - Shayla Santiago OSA - 10/19/2020 2:14 PM EST PT calling in asking what eye drops she can use, she has a saline solution but it asks about her allergy shots, not sure what she can use? Please advise documented in this encounter Plan of Treatment Upcoming Encounters Date Type Specialty Care Team Description 10/21/2020 Office Visit Allergy & Immunology Beverly Del Angel PA-C [address] [place] [address] [phone] Health Maintenance Due Date Last Done Comments [...] Documents on File Type Date Recorded Patient Editor Trade Journal Expl 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
--- OUTSIDE RECORDS SUMMARY | 2023-04-16 16:14 | External Medical Summary | Summary of Care ---
Author Name Unknown Organization [facility] Address [place] [address] Care Team Providers Care Computer Customer Support Specialist Name Role Phone Gab Smith Primary Care Provider [phone] Reason for Visit * Reason Onset Date Comments Allergy Injection 11/08/2020 Encounter Details Date Type Department Care Team Description 11/08/2020 Immunization/In jection Allergy/Immunology [facility] [address] [place] [address] Betty Nurse Allergy [facility] [address] [place] [address] [phone] Allergic rhinitis, unspecified seasonality, unspecified trigger*; Intermittent asthma with reliever use up to twice per week without complication Allergies Active Allergy Reactions Severity Noted Date Comments [place] (Diagnostic) Anaphylaxis High 05/21/2017 Banana Edema airway High 01/10/2017 Cat Dander Anaphylaxis High 05/21/2017 Corylus Anaphylaxis High 05/21/2017 Latex Rash Low 01/10/2017 Lac Bovis Other (Please comment) 01/16/2017 Mouth tenderness. Peanut (Diagnostic) Anaphylaxis High 05/21/2017 Prednisone Psych complications 01/17/2017 agitation Sesame Seed (Diagnostic) Anaphylaxis High 05/21/2017 Soy Allergy Anaphylaxis High 01/16/2017 [place] Oil Edema airway High 01/10/2017 Wasp Venom Edema airway High 01/10/2017 documented as of this encounter (statuses as of 11/08/2020) Medications Medication Sig Dispensed Refills Start Date [...] SPRAY) 0.65 % nasal spray Administer 1 [place] into nostril as needed for Congestion. 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 Encounter for supervision of other normal pregna ncy 03/13/2011 09/11/2016 Overview: ICD-10 update of inactive term Acute bronchitis, complicated 02/25/2010 Asthma with severity to be determined 02/13/2017 Overview: ICD-10 update of inactive term documented as of this encounter (statuses as of 11/08/2020) Immunizations Name Administration Dates Next Due Diptheria/Tetanus [...] documented in this encounter Plan of Treatment Pending Results Name Type Priority Associated Diagnoses Date /Time BASIC SPIROMETRY Procedures Routine Intermittent asthma with reliever use up to twice per week without complication 11/08/2020 12:28 PM EDT Health Maintenance Due Date Last Done Comments [...] Associated Diagnosis Comments BASIC SPIROMETRY Routine 11/08/2020 12:28 PM EDT Intermittent asthma with reliever use up to twice per week without complication documented in this encounter Visit Diagnoses Diagnosis Allergic rhinitis, unspecified seasonality, unspecified trigger- Primary Intermittent asthma with reliever use up to twice per week without complication documented in this encounter Advance Directives Documents on File Type Date Recorded Patient Scale Model Maker Expl 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
--- OUTSIDE RECORDS SUMMARY | 2023-04-16 16:15 | External Medical Summary | Summary of Care ---
Author Name Unknown Organization [facility] Address [place] [address] Care Team Providers Care Restoration Officer Name Role Phone LuisGab dash Primary Care Provider Reason for Visit * Reason Onset Date Comments Allergy Injection 10/07/2020 Encounter Details Date Type Department Care Team Description 10/07/2020 Immunization/In jection Allergy/Immunology [facility] [address] [place] [address] Betty Nurse Allergy [facility] [address] [place] [address] [phone] Allergic rhinitis, unspecified seasonality, unspecified trigger* Allergies Active Allergy Reactions Severity Noted Date Comments [place] (Diagnostic) Anaphylaxis High 05/21/2017 Banana Edema airway High 01/10/2017 Cat Dander Anaphylaxis High 05/21/2017 Corylus Anaphylaxis High 05/21/2017 Latex Rash Low 01/10/2017 Lac Bovis Other (Please comment) 01/16/2017 Mouth tenderness. Peanut (Diagnostic) Anaphylaxis High 05/21/2017 Prednisone Psych complications 01/17/2017 agitation Sesame Seed (Diagnostic) Anaphylaxis High 05/21/2017 Soy Allergy Anaphylaxis High 01/16/2017 [place] Oil Edema airway High 01/10/2017 Wasp Venom Edema airway High 01/10/2017 documented as of this encounter (statuses as of 10/07/2020) Medications Medication Sig Dispensed Refills Start Date [...] SPRAY) 0.65 % nasal spray Administer 1 [place] into nostril as needed for Congestion. 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 Encounter for supervision of other normal pregna ncy 03/13/2011 09/11/2016 Overview: ICD-10 update of inactive term Acute bronchitis, complicated 02/25/2010 Asthma with severity to be determined 02/13/2017 Overview: ICD-10 update of inactive term documented as of this encounter (statuses as of 10/07/2020) Immunizations Name Administration Dates Next Due Diptheria/Tetanus [...] Encounters Date Type Specialty Care Team Description 10/13/2020 Imaging Radiology Health Maintenance Due Date Last Done Comments [...] Documents on File Type Date Recorded Patient Anodic 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
--- OUTSIDE RECORDS SUMMARY | 2023-04-16 16:15 | External Medical Summary ---
Author Name Unknown Address Unknown Organization K0G:[facility] [address] [place] [address] Laboratory Report Ordering Provider Test Date Status OLGA GIFFORD 10/07/2020 09:22:01 Final Observation Date Value Abnormality Reference (Units ) Status Color of Urine by Auto 10/07/2020 09:22:01 Yellow Light Yellow, Yellow, Dark Yellow Final Clarity, Urine 10/07/2020 09:22:01 Clear Clear Final Glucose [Mass/volume] in Urine by Automated test strip 10/07/2020 09:22:01 Negative Negative (mg/dL) Final Bilirubin [Presence] in Urine by Automated test strip 10/07/2020 09:22:01 Negative Negative Final Ketones [Mass/volume] in Urine by Automated test strip 10/07/2020 09:22:01 Negative Negative (mg/dL) Final Specific gravity, Urine 10/07/2020 09:22:01 >=1.030 1.003-1.030 Final Hemoglobin [Presence] in Urine by Automated test strip 10/07/2020 09:22:01 Negative Negative Final pH, Urine 10/07/2020 09:22:01 5.5 5.0-7.5 (Units) Final Protein [Mass/volume] in Urine by Automated test strip 10/07/2020 09:22:01 Negative Negative (mg/dL) Final Urobilinogen [Mass/volume] in Urine by Automated test strip 10/07/2020 09:22:01 0.2 0.2, 1.0 (mg/dL) Final Nitrite [Presence] in Urine by Automated test strip 10/07/2020 09:22:01 Negative Negative Final Leukocyte esterase [Presence] in Urine by Automated test strip 10/07/2020 09:22:01 Trace Abnormal Negative Final Performing Location [facility] [address] [place] [address]
--- OUTSIDE RECORDS SUMMARY | 2023-04-16 16:15 | External Medical Summary ---
Author Name Unknown Address Unknown Organization K[facility] [address] [place] [address] Laboratory Report Ordering Provider Test Date Status OLGA GIFFORD 10/07/2020 09:22:01 Final Observation Date Value Abnormality Reference (Units ) Status COMMENT 10/07/2020 09:22:01 <10,000 colonies/ml mixed normal jaya Final Performing Location [facility] - [address] [place] [address]
--- OUTSIDE RECORDS SUMMARY | 2023-04-16 16:15 | External Medical Summary ---
Author Name Unknown Address Unknown Organization K0G:[facility] [address] [place] [address] Laboratory Report Ordering Provider Test Date Status OLGA GIFFORD 10/07/2020 09:22:01 Final Observation Date Value Abnormality Reference (Units ) Status RBC, Urine 10/07/2020 09:22:01 0-2 0-2 (/HPF) Final WBC, Urine 10/07/2020 09:22:01 6-9 Abnormal 0-2 (/HPF) Final Bacteria [#/area] in Urine sediment by Microscopy high power field 10/07/2020 09:22:01 0-25 0-25 (/HPF) Final Performing Location [facility] [address] [place] [address]
--- OUTSIDE RECORDS SUMMARY | 2023-04-16 16:15 | External Medical Summary | Summary of Care ---
Author Name Unknown Organization [place] [address] Care Team Providers Care Route Delivery Service Driver Name Role Phone Gab Smith DO Primary Care Provider Reason for Visit * Reason Onset Date Comments Fax 10/04/2020 waiting for orde rs to be recevied Encounter Details Date Type Department Care Team Description 10/04/2020 Telephone Family Practice [facility] [address] [facility] [place] [address] Gab Smith DO [address] [facility] [facility] [place] [address] [phone] Fax (waiting for orders to be recevied ) Allergies Active Allergy Reactions Severity Noted Date Comments [place] (Diagnostic) Anaphylaxis High 05/21/2017 Banana Edema airway High 01/10/2017 Cat Dander Anaphylaxis High 05/21/2017 Corylus Anaphylaxis High 05/21/2017 Latex Rash Low 01/10/2017 Lac Bovis Other (Please comment) 01/16/2017 Mouth tenderness. Peanut (Diagnostic) Anaphylaxis High 05/21/2017 Prednisone Psych complications 01/17/2017 agitation Sesame Seed (Diagnostic) Anaphylaxis High 05/21/2017 Soy Allergy Anaphylaxis High 01/16/2017 [place] Oil Edema airway High 01/10/2017 Wasp Venom [...] SPRAY) 0.65 % nasal spray Administer 1 [place] into nostril as needed for Congestion. 0 [...] Telephone Encounter - Yesi Lr OSA - 10/07/2020 10:58 AM EST Already scheduled * Telephone Encounter - Susie Santillan OSA - 10/06/2020 3:18 PM EST LMOM for pt to schedule abdoment xray , US and labs * Telephone Encounter - Gab Smith DO - 10/06/2020 2:39 PM EST KUB study, retroperitoneal ultrasound, urinalysis and urine culture ordered as requested for further evaluation of kidney stones. Advise increase fluid intake and call or return to office if symptomspersist or worsen. Advise follow with urologist * Telephone Encounter - Estelle Velasco LPN - 10/06/2020 2:11 PM EST Received orders form [facility] for U/A and Urine Culture also have orders for Ultra Sound Retroperitoneal and for Xray of abdomen Orders are in Dr Smith's folder Please assist patient with scheduling * Telephone Encounter - Estelle Velasco LPN - 10/06/2020 10:51 AM EST Tried to call Dr Dai from [facility] no answer left message for orders Spoke with patient she is wondering if Dr Smith can order the test she is having gritty freya urine with occ blood used home test strips and they show positive lueks She's had this problem in the pass and sees her urologist yearly what she needs is Xray, ultra sound and urine dip and culture Please advise I pend orders if agreeable And she will make appointment if needed * Telephone Encounter - Valeriy العراقي OSA - 10/05/2020 9:40 AM EST Patient calling in to check on the status of previous message. She states she has been trying to get this figured out for 3 days. She really needs to know if anything was received chhaya. If not she will just make an appointment with her pcp. Please advise * Telephone Encounter - Jena Hunter LPN - 10/04/2020 10:25 AM EST Spoke to patient we are looking for [facility] to fax over what is needed from us regarding urology. Dr. Farris is the urologist. Pt states this is urgent, they want to see her kidney stones. Ok so urology is sending us the orders that will need done for radiology. Pt would like to get themhere at radiology. We will need to call and schedule patient once we receive orders. * Telephone Encounter - Pamela Gonzalez OSA - 10/04/2020 10:03 AM EST Received a call asking if fax was received by office. Name/Company sending fax: [facility] What fax is pertaining to: xray,ultrasound and urine order Date(s) they sent request: 10/03/20 Verified fax number they are sending to is correct (Y or N): Unsure of fax is was being sent to Callback Number for the clinic to call to verified if fax was received: [phone] documented in this encounter Plan of Treatment Upcoming Encounters Date Type Specialty Care Team Description 10/13/2020 Imaging Radiology Pending Results Name Type Priority Associated Diagnoses Date /Time XR ABDOMEN 1 VIEW Medical Imaging Routine Kidney stone 10/07/2020 9:40 AM EST CULTURE, URINE, QUANTITATIVE Lab Routine Kidney stone 10/07/2020 9:22 AM EST Scheduled Orders Name Type Priority Associated Diagnoses Orde r Schedule US RENAL Medical Imaging Routine Kidney stone Ordered: 10/06/2020 Health Maintenance Due Date Last Done Comments [...] Not on filedocumented as of this encounter Results * URINALYSIS, REFLEX TO MICROSCOPIC (10/07/2020 9:22 AM EST) Color, Urine Yellow Light Yellow, Yellow, Dark Yellow [facility] [facility] Clarity, Urine Clear Clear [facility] Glucose, Urine Negative Negative mg/dL [facility] [place] [facility] Bilirubin, Urine Negative Negative [facility] [place] [facility] Ketone, Urine Negative Negative mg/dL [facility] Specific [place], Urine >=1.030 1.003 - 1.030 [facility] [place] [facility] Blood, Urine Negative Negative [facility] [place] [facility] pH, Urine 5.5 5.0 - 7.5 Units [facility] [place] [facility] Protein, Urine Negative Negative mg/dL [facility] [place] [facility] Urobilinogen, Urine 0.2 0.2, 1.0 mg/dL [facility] [place] [facility] Nitrite, Urine Negative Negative [facility] Esterase, Urine Trace(A) Negative [facility] [place] [facility] Specimen Urine - Urine, Clean Catch [facility] [place] [facility] [place] [address] documented in this encounter Visit Diagnoses Diagnosis Kidney stone- Primary Calculus of kidney documented in this encounter Advance Directives Documents on File Type Date Recorded 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
--- OUTSIDE RECORDS SUMMARY | 2023-04-16 16:15 | External Medical Summary | Summary of Care ---
Author Name Unknown Organization [facility] Address [place] [address] Care Team Providers Care Wheel Roller Name Role Phone LuisGab dash Primary Care Provider Reason for Visit * Reason Onset Date Comments Allergy Injection 09/30/2020 Encounter Details Date Type Department Care Team Description 09/30/2020 Immunization/In jection Allergy/Immunology [facility] [address] [place] [address] Betty Nurse Allergy [facility] [address] [place] [address] [phone] Allergic rhinitis, unspecified seasonality, unspecified trigger* Allergies Active Allergy Reactions Severity Noted Date Comments [place] (Diagnostic) Anaphylaxis High 05/21/2017 Banana Edema airway High 01/10/2017 Cat Dander Anaphylaxis High 05/21/2017 Corylus Anaphylaxis High 05/21/2017 Latex Rash Low 01/10/2017 Lac Bovis Other (Please comment) 01/16/2017 Mouth tenderness. Peanut (Diagnostic) Anaphylaxis High 05/21/2017 Prednisone Psych complications 01/17/2017 agitation Sesame Seed (Diagnostic) Anaphylaxis High 05/21/2017 Soy Allergy Anaphylaxis High 01/16/2017 [place] Oil Edema airway High 01/10/2017 Wasp Venom Edema airway High 01/10/2017 documented as of this encounter (statuses as of 09/30/2020) Medications Medication Sig Dispensed Refills Start Date [...] SPRAY) 0.65 % nasal spray Administer 1 [place] into nostril as needed for Congestion. 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
--- OUTSIDE RECORDS SUMMARY | 2023-04-16 16:16 | External Medical Summary | Summary of Care ---
Author Name Unknown Organization [place] [address] Care Team Providers Care Facilities And Grounds Director Name Role Phone Gab Smith DO Primary Care Provider Reason for Visit * Reason Onset Date Comments Advice 09/26/2020 Encounter Details Date Type Department Care Team Description 09/26/2020 Telephone Allergy/Immunology [facility] [address] [place] [address] Valeriy Milton MD [address] [place] [address] [phone] Advice Allergies Active Allergy Reactions Severity Noted Date Comments [place] (Diagnostic) Anaphylaxis High 05/21/2017 Banana Edema airway High 01/10/2017 Cat Dander Anaphylaxis High 05/21/2017 Corylus Anaphylaxis High 05/21/2017 Latex Rash Low 01/10/2017 Lac Bovis Other (Please comment) 01/16/2017 Mouth tenderness. Peanut (Diagnostic) Anaphylaxis High 05/21/2017 Prednisone Psych complications 01/17/2017 agitation Sesame Seed (Diagnostic) Anaphylaxis High 05/21/2017 Soy Allergy Anaphylaxis High 01/16/2017 [place] Oil Edema airway High 01/10/2017 Wasp Venom Edema airway High 01/10/2017 documented as of this encounter (statuses as of 09/26/2020) Medications Medication Sig Dispensed Refills Start Date [...] SPRAY) 0.65 % nasal spray Administer 1 [place] into nostril as needed for Congestion. 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 * Telephone Encounter - Lorene Dhaliwal LPN - 09/26/2020 12:23 PM EST Pt has a UTI and wants to know if it ok for her to take antibiotics and get her allergy shots. Advised this is ok . Pt states that after her AIT on Saturday around 6 Pm started sneezing and had 1 hive.Pt took a Benadryl she states her son walked past after having spraying hair spray. I advised this may have just irritated her and probably shouldn't be around a lot of hair spray if it was causing her to have watery eyes, sneezing and a hive on her lip. Please advise * Telephone Encounter - Jung Boyle OSA - 09/26/2020 12:22 PM EST Patient calling to speak with a nurse in allergy with questions about using other medications alongside allergy injections - transferred to Lorene in allergy. Thanks. documented in this encounter Plan of Treatment [...] Documents on File Type Date Recorded Patient Educational Diagnostician Expl 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
--- OUTSIDE RECORDS SUMMARY | 2023-04-16 16:16 | External Medical Summary | Summary of Care ---
Author Name Unknown Organization [place] [address] Care Team Providers Care Associate Professor Of Biology Name Role Phone Gab Smith DO Primary Care Provider [phone] Reason for Visit * Reason Onset Date Comments Allergy Injection 07/22/2020 Encounter Details Date Type Department Care Team Description 07/22/2020 Immunization/In jection Allergy/Immunology [facility] [address] [place] [address] Betty, Nurse Allergy [facility] [address] [place] [address] [phone] Allergic rhinitis, unspecified seasonality, unspecified trigger* Allergies Active Allergy Reactions Severity Noted Date Comments [place] (Diagnostic) Anaphylaxis High 05/21/2017 Banana Edema airway High 01/10/2017 Cat Dander Anaphylaxis High 05/21/2017 Corylus Anaphylaxis High 05/21/2017 Latex Rash Low 01/10/2017 Lac Bovis Other (Please comment) 01/16/2017 Mouth tenderness. Peanut (Diagnostic) Anaphylaxis High 05/21/2017 Prednisone Psych complications 01/17/2017 agitation Sesame Seed (Diagnostic) Anaphylaxis High 05/21/2017 Soy Allergy Anaphylaxis High 01/16/2017 [place] Oil Edema airway High 01/10/2017 Wasp Venom Edema airway High 01/10/2017 documented as of this encounter (statuses as of 07/22/2020) Medications Medication Sig Dispensed Refills Start Date [...] SPRAY) 0.65 % nasal spray Administer 1 [place] into nostril as needed for Congestion. 0 [...] needed (wheezing). 60 Vial 5 10/26/2019 Active methylPREDNISolone (MEDROL DOSEPACK) 4 MG TBPKIndications:All ergic reaction, initial encounter follow package directions 21 Tab 0 02/06/2020 Active Additional Information Patient not taking. 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 Encounter for supervision of other normal pregna ncy 03/13/2011 09/11/2016 Overview: ICD-10 update of inactive term Acute bronchitis, complicated 02/25/2010 Asthma with severity to be determined 02/13/2017 Overview: ICD-10 update of inactive term documented as of this encounter (statuses as of 07/22/2020) Immunizations Name Administration Dates Next Due Diptheria/Tetanus [...] Progress Notes * Marilee Bobby LPN - 07/22/2020 11:51 AM EST Pre-injection Questionnaire Patient identified by [...] Encounters Date Type Specialty Care Team Description 08/22/2020 Office Visit Allergy & Immunology Beverly Del Angel PA-C [address] [place] [address] [place] [id number] Health Maintenance Due Date Last Done Comments [...] Documents on File Type Date Recorded 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
--- OUTSIDE RECORDS SUMMARY | 2023-04-16 16:16 | External Medical Summary | Summary of Care ---
Author Name Unknown Organization [facility] [place] [address] Care Team Providers Care Certified Performance Technologist Name Role Phone LuisGab dash Primary Care Provider [phone] Reason for Visit * Reason Onset Date Comments Allergy Injection 09/12/2020 Encounter Details Date Type Department Care Team Description 09/12/2020 Immunization/In jection Allergy/Immunology [facility] [place] [address] [place] [address] Betty Nurse Allergy [facility] [address] [place] [address] [phone] Allergic rhinitis, unspecified seasonality, unspecified trigger* Allergies Active Allergy Reactions Severity Noted Date Comments [place] (Diagnostic) Anaphylaxis High 05/21/2017 Banana Edema airway High 01/10/2017 Cat Dander Anaphylaxis High 05/21/2017 Corylus Anaphylaxis High 05/21/2017 Latex Rash Low 01/10/2017 Lac Bovis Other (Please comment) 01/16/2017 Mouth tenderness. Peanut (Diagnostic) Anaphylaxis High 05/21/2017 Prednisone Psych complications 01/17/2017 agitation Sesame Seed (Diagnostic) Anaphylaxis High 05/21/2017 Soy Allergy Anaphylaxis High 01/16/2017 [place] Oil Edema airway High 01/10/2017 Wasp Venom Edema airway High 01/10/2017 documented as of this encounter (statuses as of 09/12/2020) Medications Medication Sig Dispensed Refills Start Date [...] SPRAY) 0.65 % nasal spray Administer 1 [place] into nostril as needed for Congestion. 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
--- OUTSIDE RECORDS SUMMARY | 2023-04-16 16:16 | External Medical Summary | Summary of Care ---
Author Name Unknown Organization [place] [address] Care Team Providers Care Liaison Officer Name Role Phone Gab Smith DO Primary Care Provider Reason for Visit * Reason Onset Date Comments Allergy Serum 07/11/2020 Encounter Details Date Type Department Care Team Description 07/11/2020 Nurse Only Allergy/Immunology [facility] [address] [place] [address] Betty Nurse Allergy [facility] [address] [place] [address] [phone] Allergy Serum Allergies Active Allergy Reactions Severity Noted Date Comments [place] (Diagnostic) Anaphylaxis High 05/21/2017 Banana Edema airway High 01/10/2017 Cat Dander Anaphylaxis High 05/21/2017 Corylus Anaphylaxis High 05/21/2017 Latex Rash Low 01/10/2017 Lac Bovis Other (Please comment) 01/16/2017 Mouth tenderness. Peanut (Diagnostic) Anaphylaxis High 05/21/2017 Prednisone Psych complications 01/17/2017 agitation Sesame Seed (Diagnostic) Anaphylaxis High 05/21/2017 Soy Allergy Anaphylaxis High 01/16/2017 [place] Oil Edema airway High 01/10/2017 Wasp Venom Edema airway High 01/10/2017 documented as of this encounter (statuses as of 07/11/2020) Medications Medication Sig Dispensed Refills Start Date [...] SPRAY) 0.65 % nasal spray Administer 1 [place] into nostril as needed for Congestion. 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 Marilee Bobby LPN 07/11/2020 documented in this encounter Plan of Treatment Upcoming Encounters Date Type Specialty Care Team Description 08/22/2020 Office Visit Allergy & Immunology Beverly Del Angel PA-C [address] [facility] [place] [address] [phone] Scheduled Orders Name Type Priority Associated Diagnoses Orde r Schedule [facility] Procedures Routine Allergic rhinitis Ordered: 07/11/2020 Health Maintenance Due Date Last Done Comments [...] of this encounter Visit Diagnoses Diagnosis Allergic rhinitis- Primary Allergic rhinitis, cause unspecified documented in this encounter Advance Directives Documents on File Type Date Recorded Patient Supervisor Vat House Expl 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
--- OUTSIDE RECORDS SUMMARY | 2023-04-16 16:16 | External Medical Summary | Summary of Care ---
Author Name Unknown Organization [place] [address] Care Team Providers Care Lineman Apprentice Name Role Phone Gab Smith DO Primary Care Provider Reason for Visit * Reason Onset Date Comments Appointment 08/18/2020 Encounter Details Date Type Department Care Team Description 08/18/2020 Telephone Allergy/Immunology [facility] [address] [place] [address] Valeriy Milton MD [address] [place] [address] [phone] Appointment Allergies Active Allergy Reactions Severity Noted Date Comments [place] (Diagnostic) Anaphylaxis High 05/21/2017 Banana Edema airway High 01/10/2017 Cat Dander Anaphylaxis High 05/21/2017 Corylus Anaphylaxis High 05/21/2017 Latex Rash Low 01/10/2017 Lac Bovis Other (Please comment) 01/16/2017 Mouth tenderness. Peanut (Diagnostic) Anaphylaxis High 05/21/2017 Prednisone Psych complications 01/17/2017 agitation Sesame Seed (Diagnostic) Anaphylaxis High 05/21/2017 Soy Allergy Anaphylaxis High 01/16/2017 [place] Oil Edema airway High 01/10/2017 Wasp Venom Edema airway High 01/10/2017 documented as of this encounter (statuses as of 08/18/2020) Medications Medication Sig Dispensed Refills Start Date [...] SPRAY) 0.65 % nasal spray Administer 1 [place] into nostril as needed for Congestion. 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 Encounter for supervision of other normal pregna ncy 03/13/2011 09/11/2016 Overview: ICD-10 update of inactive term Acute bronchitis, complicated 02/25/2010 Asthma with severity to be determined 02/13/2017 Overview: ICD-10 update of inactive term documented as of this encounter (statuses as of 08/18/2020) Immunizations Name Administration Dates Next Due Diptheria/Tetanus [...] Telephone Encounter - Liz Cr RN - 08/18/2020 12:07 PM EST Spoke to pt-appt time changed-pt to get AIT at time of appt * Telephone Encounter - Lorene Dhaliwal LPN - 08/18/2020 9:01 AM EST Left message for pt to return call pt is scheduled with Dr Milton on 08/22/19 and was not given enough time for the appointment with Dr Milton (pt requires 40 min protocol) need to move the appointment up earlier in the day and extend to 40 minutes. 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
--- OUTSIDE RECORDS SUMMARY | 2023-04-16 16:16 | External Medical Summary | Summary of Care ---
Author Name Unknown Organization [place] [address] Care Team Providers Care Community Relations Rep Name Role Phone LuisGab dash Primary Care Provider Reason for Visit * Reason Onset Date Comments Allergy Injection 08/29/2020 Encounter Details Date Type Department Care Team Description 08/29/2020 Immunization/In jection Allergy/Immunology [facility] [address] [place] [address] Betty Nurse Allergy [facility] [address] [facility] [place] [address] [phone] Allergic rhinitis, unspecified seasonality, unspecified trigger* Allergies Active Allergy Reactions Severity Noted Date Comments [place] (Diagnostic) Anaphylaxis High 05/21/2017 Banana Edema airway High 01/10/2017 Cat Dander Anaphylaxis High 05/21/2017 Corylus Anaphylaxis High 05/21/2017 Latex Rash Low 01/10/2017 Lac Bovis Other (Please comment) 01/16/2017 Mouth tenderness. Peanut (Diagnostic) Anaphylaxis High 05/21/2017 Prednisone Psych complications 01/17/2017 agitation Sesame Seed (Diagnostic) Anaphylaxis High 05/21/2017 Soy Allergy Anaphylaxis High 01/16/2017 [place] Oil Edema airway High 01/10/2017 Wasp Venom Edema airway High 01/10/2017 documented as of this encounter (statuses as of 08/29/2020) Medications Medication Sig Dispensed Refills Start Date [...] 0.65 % nasal spray Administer 1 [place] into nostril as needed for Congestion. 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
--- OUTSIDE RECORDS SUMMARY | 2023-04-16 16:16 | External Medical Summary | Summary of Care ---
Author Name Unknown Organization [place] [address] Care Team Providers Care Sexual Assault Counselor Name Role Phone LuisGab dash Primary Care Provider Reason for Visit * Reason Onset Date Comments Allergy Injection 09/02/2020 Encounter Details Date Type Department Care Team Description 09/02/2020 Immunization/In jection Allergy/Immunology [facility] [address] [place] [address] Betty Nurse Allergy [facility] [address] [facility] [place] [address] [phone] Allergic rhinitis, unspecified seasonality, unspecified trigger* Allergies Active Allergy Reactions Severity Noted Date Comments [place] (Diagnostic) Anaphylaxis High 05/21/2017 Banana Edema airway High 01/10/2017 Cat Dander Anaphylaxis High 05/21/2017 Corylus Anaphylaxis High 05/21/2017 Latex Rash Low 01/10/2017 Lac Bovis Other (Please comment) 01/16/2017 Mouth tenderness. Peanut (Diagnostic) Anaphylaxis High 05/21/2017 Prednisone Psych complications 01/17/2017 agitation Sesame Seed (Diagnostic) Anaphylaxis High 05/21/2017 Soy Allergy Anaphylaxis High 01/16/2017 [place] Oil Edema airway High 01/10/2017 Wasp Venom Edema airway High 01/10/2017 documented as of this encounter (statuses as of 09/02/2020) Medications Medication Sig Dispensed Refills Start Date [...] 0.65 % nasal spray Administer 1 [place] into nostril as needed for Congestion. 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 Encounter for supervision of other normal pregna ncy 03/13/2011 09/11/2016 Overview: ICD-10 update of inactive term Acute bronchitis, complicated 02/25/2010 Asthma with severity to be determined 02/13/2017 Overview: ICD-10 update of inactive term documented as of this encounter (statuses as of 09/02/2020) Immunizations Name Administration Dates Next Due Diptheria/Tetanus [...] Progress Notes * Marilee Bobby LPN - 09/02/2020 12:14 PM EST Pre-injection Questionnaire Patient identified by [...] on File Type Date Recorded Patient Senior Risk Analyst Expl 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
--- OUTSIDE RECORDS SUMMARY | 2023-04-16 16:16 | External Medical Summary | Summary of Care ---
Author Name Unknown Organization [place] [address] Care Team Providers Care Smearer Name Role Phone LuisGab dash Primary Care Provider Reason for Visit * Reason Onset Date Comments Allergy Return Allergy Injection 08/22/2020 Encounter Details Date Type Department Care Team Description 08/22/2020 Telemedicine Allergy/Immunology [facility] [address] [place] [address] Valeriy Milton MD [address] [place] [address] [phone] Allergic reaction, subsequent encounter*; Allergic rhinitis, unspecified seasonality, unspecified trigger; Chronic seasonal allergic rhinitis due to pollen; Allergic rhinitis due to dust; Chronic seasonal allergic rhinitis due to fungal spores; Non-seasonal allergic rhinitis due to animal hair and dander; Mild intermittent extrinsic asthma without complication; Peanut allergy; Tree nut allergy; Adverse food reaction, subsequent encounter Allergies Active Allergy Reactions Severity Noted Date Comments [place] (Diagnostic) Anaphylaxis High 05/21/2017 Banana Edema airway High 01/10/2017 Cat Dander Anaphylaxis High 05/21/2017 Corylus Anaphylaxis High 05/21/2017 Latex Rash Low 01/10/2017 Lac Bovis Other (Please comment) 01/16/2017 Mouth tenderness. Peanut (Diagnostic) Anaphylaxis High 05/21/2017 Prednisone Psych complications 01/17/2017 agitation Sesame Seed (Diagnostic) Anaphylaxis High 05/21/2017 Soy Allergy Anaphylaxis High 01/16/2017 [place] Oil Edema airway High 01/10/2017 Wasp Venom Edema airway High 01/10/2017 documented as of this encounter (statuses as of 08/22/2020) Medications Medication Sig Dispensed Refills Start Date End Date Status Cranberry 250 MG CAPSIndications: taking 500mg a day Take 1 Tab by mouth 2 times a day. Indications: taking 500mg a day 0 Active diphenhydrAMINE (BENADRYL) 25 MG Capsule Take 2 capsules at onset suspected allergic reaction; may repeat every 4-6 hrs. as needed. 40 Cap 1 02/13/2017 Active saline (OCEAN NASAL SPRAY) 0.65 % nasal spray Administer 1 [place] into nostril as needed for Congestion. 0 [...] allergy symptoms 1 Inhaler 5 06/23/2018 Active albuterol-ipratr opium (DUONEB) 2.5-0.5 MG/3ML nebulizer solution Inhale 3 [...] 02/08/2020 Active EPINEPHrine, anaphylaxis, (AUTOINJECTOR) 0.3 MG/0.3ML SOAJIndications: Allergic reaction, subsequent encounter For a severe reaction: Place orange end against the outer thigh, press firmly, hold in place for 10 seconds and go to the Emergency room. 2 Each 3 03/01/2020 Active methylPREDNISolo ne (MEDROL DOSEPACK) 4 MG TBPKIndications: Allergic reaction, initial encounter follow package directions 21 Tab 0 02/06/2020 08/22/2020 Discontinued (Medication List Clean Up) documented as of this encounter (statuses as of 08/22/2020) Active Problems Problem Noted Date Anxiety 03/28/2017 [...] as of this encounter (statuses as of 08/22/2020) Resolved Problems Problem Noted Date Resolved Date Reaction to allergy injection 05/19/2019 Pollen-food allergy syndrome 03/28/201708/2018 Encounter for supervision of other normal pregna ncy 03/13/2011 09/11/2016 Overview: ICD-10 update of inactive term Acute bronchitis, complicated 02/25/2010 Asthma with severity to be determined 02/13/2017 Overview: ICD-10 update of inactive term documented as of this encounter (statuses as of 08/22/2020) Immunizations Name Administration Dates Next Due Diptheria/Tetanus [...] Sign Reading Time Taken Comments Blood Pressure 110/76 08/22/2020 3:10 PM EST Pulse 76 08/22/2020 3:10 PM EST Temperature 37.1 C (98.7 F) 08/22/2020 3:10 PM ES T Respiratory Rate 16 08/22/2020 3:10 PM EST Oxygen Saturation - - Inhaled Oxygen Concentration - - Weight 87.9 kg (193 lb 12.8 oz) 08/22/2020 3:10 PM EST Height - - Body Mass Index 32.25 05/19/2019 12:21 PM EDT documented in this encounter Patient Instructions * Patient Instructions* Valeriy Milton MD - 08/22/2020 3:57 PM EST Pollen Avoidance Measures: Keep windows, doors closed; use air conditioning; dry clothes in vented dryer, not outside on clothesline; shower/bathe and change clothes right after outdoor activity; avoid outdoor activity during high pollen counts; use HEPA type air filtration system. Mold Avoidance Measures: Indoor: Clean moldy surfaces with a diluted bleach solution or a commercial transformer molder; fix waterleaks; reduce indoor humidity to <50% with dehumidifiers or air conditioning. Outdoor: Avoid uncut antonio, working with compost and soil, raking leaves and hay; keep windows anddoors closed; use air conditioning Dust Mite Avoidance Measures: Essential: Encase mattress, pillow, box springs in allergen-impermeable covers; wash bedding weeklyin hot water(>130 degreesF); reduce indoor humidity to <50%; dust weekly and run HEPA type vacuum house cleaner supervisor. Desirable: Remove carpets from bedroom and any laid on concrete; minimize upholstered furniture; use HEPA type air filtration in bedroom and family room (close air ducts); remove stuffed toys and collectibles from bedroom. Animal Avoidance Measures: Remove pet from home; if unacceptable, keep pet out of the bedroom and off upholstered furniture; wash pet weekly; use HEPA-type air filtration in bedroom (close air ducts); remove feathered pillows/bedding. documented in this encounter Progress Notes * TreLorene almeida LPN - 08/22/2020 3:18 PM EST Pre-injection Questionnaire Patient identified by [...] condition? No Today's peak flow - BP 110/76 | Pulse 76 | Temp 37.1 C (98.7 F) | Resp 16 | Wt 87.9 kg (193 lb 12.8 oz) | BMI 32.25 kg/m | BSA 2.01 m *Allergy Injection documentation located in Allergy Injections [facility] Flowsheet* * Valeriy Milton MD - 08/22/2020 3:09 PM EST SUBJECTIVE: Regina was evaluated for follow-up of her recent allergic reaction, allergic rhinitis, intermittent asthma and food allergies. She has been doing fairly well since her last visit in February. She has not had any recurrence of major anaphylactic reactions. She has not required emergency Benadryl or EpiPen with any frequency. No urgent care visits. She is continuing allergy immunotherapy but is having difficulty coming in frequently to advance toward maintenance dose. She is not having large local reactions especially during the winter months. She has not had any systemic reactions to her immunotherapy in the interval. She is taking daily Claritin. She is not having constant nasal sneezing or congestion. Did not have significant nasal symptoms with excessive cleaning and dust exposure recently. She has not needed oral ant ibiotics for recurrent sinus or ear infections. She has had some intermittent chest tightness and wheezing. This seems to occur with exertion, coldair and weather changes. Uses her albuterol inhaler once or twice a week. She has not had any asthma exacerbations that have required emergency room visit or hospitalization. Asthma triggers identified in the past have been respiratory infections, exercise, allergen exposure, odors and weather changes. Last significant allergic reaction was in mid January 2020. She was outside for several hours that dayand had in fact been doing a lot of outdoor activities that week.. Her throat felt uncomfortable, initially described as pain but then says it felt like swelling. She also had some nasal congestion and her ears were itchy. She took some Benadryl, Pepcid and used her albuterol inhaler which helped to some degree. She then took some Claritin and within an hour her symptoms were resolved. The next morning she woke up and still had some mild nasal congestion still had that feeling in her throat like it was swelling. She took some Benadryl, Pepcid and Claritin again, Symptoms seem to slowly dissipate over the next 2 days with just repeated Claritin and Benadryl. Symptoms never became severe enough that she felt need for urgent care visit to an emergency department. She has not needed her EpiPen for any accidental ingestions of foods to which she is sensitive in the interval. She continues to avoid peanuts, tree nuts, mandarin oranges, and sesame seeds. History of significant reaction November, after ingestion of sunflower seeds. Within a few minutes got tightness of chest and shortness of breath. There was lips and throat swelling to the point there was some drooling; facial hives were noted as well. In Dec, 2015 she had a bagel with soy milk, may have contained sesame seeds. Almost immediately she had lip burning and swelling. Her mouth became itchy.Her face began to swell and there was itching and hives over the face and neck. There was throat swelling and difficulty breathing in the chest. She did have to be seen in the emergency room at that time. She also has history of reaction to a wasp sting at approximately age 8. Multiple stings may have been involved. She did have significant large local swelling of the lower extremities. She also developed chest tightness, shortness of breath and some throat swelling. She was never tested for insectsting allergy the time. She has not had any recent stings. She is not having problems with allergic skin rashes currently. Asthma control test 08/22/20 revealed a value [...] 05/07/2019 11:33:47 AM. Immunotherapy: Started: 08/04/18 - present Benefit? YES Reactions? YES, large local 05/18/2019 Patient Active Problem List Diagnosis Code [...] Medications Medication Sig Dispense Refill Albuterol Sulfate (ALBUTEROL HFA) 108 (90 BASE) MCG/ACT inhaler Inhale 2 Puffs by mouth every 4hours as needed for Cough, Shortness of Breath or Wheezing. 54 g 1 famotidine (PEPCID) 20 MG Tablet Take 1 Tab by mouth 2 times a day as needed for Heartburn (or increased allergy symtpoms). methylPREDNISolone (MEDROL DOSEPACK) 4 MG TBPK follow package directions 21 Tab 0 albuterol-ipratropium (DUONEB) 2.5-0.5 MG/3ML nebulizer solution Inhale [...] SPRAY) 0.65 % nasal spray Administer 1 [place] into nostril as needed for Congestion. diphenhydrAMINE (BENADRYL) 25 MG Capsule Take 2 capsules at onset suspected allergic reaction; may repeat every 4-6 hrs. as needed. 40 Cap 1 Cranberry 250 MG CAPS Take 1 Tab by mouth 2 times a day. Indications: taking 500mg a day EPINEPHrine, anaphylaxis, (AUTOINJECTOR) 0.3 MG/0.3ML SOAJ For a severe reaction: Place orange end against the outer thigh, press firmly, hold in place for 10 seconds and go to the Emergency room. 2 Each 3 Review of patient's allergies indicates: Allergen Reactions Mead (Diagnostic) Anaphylaxis Banana Edema airway Cat Dander Anaphylaxis [place] Tree Pollen [Corylus] Anaphylaxis Peanut (Diagnostic) Anaphylaxis Sesame Seed (Diagnostic) Anaphylaxis Soy Allergy Anaphylaxis [place] Oil Edema airway Wasp Venom Edema airway [...] floor and heart hardwood. 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 BP 110/76 | Pulse 76 | Temp 37.1 C (98.7 F) | Resp 16 | Wt 87.9 kg (193 lb 12.8 oz) | BMI 32.25kg/m | BSA 2.01 m PHYSICAL EXAM: No Acute Distress: Conjunctiva: Normal TM's: Clear Sinus Tenderness: None noted Nose:Pale mucosa; mild inferior turbinate edema, no polyps, no mucopus Oropharynx: Mild erythema and cobblestoning, no lesions or exudates. Neck: No significant adenopathy Lungs: Clear to A&P, no wheezes; Good air movement bilaterally. Cor: RRR, no murmur Abdomen: Soft, non-tender, BS - WNL; no masses, organomegaly Skin: No lesions atopic dermatitis; no urticaria, [...] with essentially normal spirometry. ASSESSMENT: ICD-10-CM 1. Allergic reaction, subsequent encounter T78.40XD 2. Allergic rhinitis, unspecified seasonality, unspecified trigger J30.9 3. Chronic seasonal allergic rhinitis due to pollen J30.1 4. Allergic rhinitis due to dust J30.89 5. Chronic seasonal allergic rhinitis due to fungal spores J30.2 6. Non-seasonal allergic rhinitis due to animal hair and dander J30.81 7. Mild intermittent extrinsic asthma without complication J45.20 8. Peanut allergy Z91.010 9. 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 Adverse food reaction, subsequent encounter T78.1XXD PLAN: Avoidance measures regarding pollens, molds, dust mites and animal danders should be continued. She did have a significant allergic reaction mid January consisting of posterior pharyngeal itching and swelling for the most part as [...] since she is allergic to spring pollens andshe was doing significant outdoor activity all that week and especially the day prior to the release of the reaction most likely this was pollen related symptoms. Her nasal allergy symptoms seem to be controlled currently on just Claritin 10 mg a day. She does [...] an anaphylaxis action plan regarding this protocol. She has gotten behind on her allergy immunotherapy injections because of reduced office schedule during the coronavirus pandemic and her recurrent reactions.. She has just resumed buildup allergy immunotherapy and will try to come in twice weekly to achieve maintenance does by the spring/summer pollen seasons. Overall her asthma remains intermittent. She will continue albuterol 2 puffs every 4 hours as needed can be utilized. If worsening or more persistent asthma symptoms [...] Up: Return in about 6 months (around 02/19/2021), or if symptoms worsen or fail to improve, for Clinic Visit. | For: Clinic Visit Updated allergy serum IgE determinations to foods as well as updated spirometry will be done around the time of this visit. Valeriy Milton MD Allergy and Immunology [facility] (This note was completed using the dictation program Fluency Direct. As such, there may be misspellings, word substitutions, or other variations that should not change the essence of the clinical content of this encounter note.If there is need for further clarification, please direct questions to the provider listed above.) documented in this encounter Nursing Notes * Lorene Dhaliwal LPN - 08/22/2020 3:09 PM EST The pt has been properly identified by confirmation of name and date of . Pt presents for allergy return. documented in this encounter Plan of Treatment Scheduled Orders Name Type Priority Associated Diagnoses Orde r Schedule IGE Lab Routine Allergic rhinitis, unspecified seasonality, unspecified trigger Allergic reaction, subsequent encounter Chronic seasonal allergic rhinitis due to pollen Allergic rhinitis due to dust Chronic seasonal allergic rhinitis due to fungal spores Non-seasonal allergic rhinitis due to animal hair and dander Mild intermittent extrinsic asthma without complication Peanut allergy Tree nut allergy Adverse food reaction, subsequent encounter Expected: 08/22/2020 (Approximate), Expires: 08/22/2021 ALLERGEN MILK IGE Lab Routine Adverse food reaction, subsequent encounter Expected: 08/22/2020 (Approximate), Expires: 08/22/2021 ALLERGEN SOYBEAN IGE Lab Routine Peanut allergy Tree nut allergy Adverse food reaction, subsequent encounter Expected: 08/22/2020 (Approximate), Expires: 08/22/2021 ALLERGEN NUT IGE PROFILE Lab Routine Peanut allergy Tree nut allergy Expected: 08/22/2020, Expires: 08/22/2021 ALLERGEN BIRCH IGE Lab Routine Adverse food reaction, subsequent encounter Expected: 08/22/2020 (Approximate), Expires: 08/22/2021 ALLERGEN ORANGE IGE Lab Routine Adverse food reaction, subsequent encounter Expected: 08/22/2020, Expires: 08/22/2021 PEANUT COMPONENT PANEL Lab Routine Chronic seasonal allergic rhinitis due to pollen Peanut allergy Adverse food reaction, subsequent encounter Expected: 08/22/2020, Expires: 08/22/2021 Health Maintenance Due Date Last Done Comments [...] encounter Visit Diagnoses Diagnosis Allergic reaction, subsequent encounter- Primary Allergic rhinitis, unspecified seasonality, unspecified trigger [...] Documents on File Type Date Recorded Patient Cfo Controller Expl 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
--- OUTSIDE RECORDS SUMMARY | 2023-04-16 16:16 | External Medical Summary | Summary of Care ---
Author Name Unknown Organization [facility] Address [place] [address] Care Team Providers Care Finance Broker Name Role Phone LuisGab dash Primary Care Provider [phone] Reason for Visit * Reason Onset Date Comments Allergy Injection 09/16/2020 Encounter Details Date Type Department Care Team Description 09/16/2020 Immunization/In jection Allergy/Immunology [facility] [place] [address] [place] [address] Betty Nurse [facility] [address] [place] [address] [phone] Allergic rhinitis, unspecified seasonality, unspecified trigger* Allergies Active Allergy Reactions Severity Noted Date Comments [place] (Diagnostic) Anaphylaxis High 05/21/2017 Banana Edema airway High 01/10/2017 Cat Dander Anaphylaxis High 05/21/2017 Corylus Anaphylaxis High 05/21/2017 Latex Rash Low 01/10/2017 Lac Bovis Other (Please comment) 01/16/2017 Mouth tenderness. Peanut (Diagnostic) Anaphylaxis High 05/21/2017 Prednisone Psych complications 01/17/2017 agitation Sesame Seed (Diagnostic) Anaphylaxis High 05/21/2017 Soy Allergy Anaphylaxis High 01/16/2017 [place] Oil Edema airway High 01/10/2017 Wasp Venom Edema airway High 01/10/2017 documented as of this encounter (statuses as of 09/16/2020) Medications Medication Sig Dispensed Refills Start Date [...] SPRAY) 0.65 % nasal spray Administer 1 [place] into nostril as needed for Congestion. 0 [...] as of this encounter (statuses as of 09/16/2020) Active Problems Problem Noted Date Anxiety 03/28/2017 [...] as of this encounter (statuses as of 09/16/2020) Resolved Problems Problem Noted Date Resolved Date Reaction to allergy injection 05/19/2019 Pollen-food allergy syndrome 03/28/201708/2018 Encounter for supervision of other normal pregna ncy 03/13/2011 09/11/2016 Overview: ICD-10 update of inactive term Acute bronchitis, complicated 02/25/2010 Asthma with severity to be determined 02/13/2017 Overview: ICD-10 update of inactive term documented as of this encounter (statuses as of 09/16/2020) Immunizations Name Administration Dates Next Due Diptheria/Tetanus [...] Progress Notes * Lorene Dhaliwal LPN - 09/16/2020 12:44 PM EST Pre-injection Questionnaire Patient identified by [...] Documents on File Type Date Recorded Patient Proof Coins Inspector Expl 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
--- OUTSIDE RECORDS SUMMARY | 2023-04-16 16:16 | External Medical Summary | Summary of Care ---
Author Name Unknown Organization [place] [address] Care Team Providers Care Joggle Press Operator Name Role Phone Gab Smith Primary Care Provider Reason for Visit * Reason Onset Date Comments Allergy Injection 08/16/2020 Encounter Details Date Type Department Care Team Description 08/16/2020 Immunization/In jection Allergy/Immunology [facility] [address] [place] [address] Betty Nurse Allergy [facility] [address] [facility] [place] [address] [phone] Allergic rhinitis, unspecified seasonality, unspecified trigger* Allergies Active Allergy Reactions Severity Noted Date Comments [place] (Diagnostic) Anaphylaxis High 05/21/2017 Banana Edema airway High 01/10/2017 Cat Dander Anaphylaxis High 05/21/2017 Corylus Anaphylaxis High 05/21/2017 Latex Rash Low 01/10/2017 Lac Bovis Other (Please comment) 01/16/2017 Mouth tenderness. Peanut (Diagnostic) Anaphylaxis High 05/21/2017 Prednisone Psych complications 01/17/2017 agitation Sesame Seed (Diagnostic) Anaphylaxis High 05/21/2017 Soy Allergy Anaphylaxis High 01/16/2017 [place] Oil Edema airway High 01/10/2017 Wasp Venom Edema airway High 01/10/2017 documented as of this encounter (statuses as of 08/16/2020) Medications Medication Sig Dispensed Refills Start Date [...] SPRAY) 0.65 % nasal spray Administer 1 [place] into nostril as needed for Congestion. 0 [...] as of this encounter (statuses as of 08/16/2020) Active Problems Problem Noted Date Anxiety 03/28/2017 [...] as of this encounter (statuses as of 08/16/2020) Resolved Problems Problem Noted Date Resolved Date Reaction to allergy injection 05/19/2019 Pollen-food allergy syndrome 03/28/201708/2018 Encounter for supervision of other normal pregna ncy 03/13/2011 09/11/2016 Overview: ICD-10 update of inactive term Acute bronchitis, complicated 02/25/2010 Asthma with severity to be determined 02/13/2017 Overview: ICD-10 update of inactive term documented as of this encounter (statuses as of 08/16/2020) Immunizations Name Administration Dates Next Due Diptheria/Tetanus [...] Progress Notes * Marilee Bobby LPN - 08/16/2020 3:30 PM EST Pre-injection Questionnaire Patient identified by [...] Telemedicine Allergy & Immunology Valeriy Milton MD [address] [place] [address] [phone] Health Maintenance Due Date Last Done Comments [...] Documents on File Type Date Recorded Patient Maintenance Custodian Expl 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
--- OUTSIDE RECORDS SUMMARY | 2023-04-16 16:16 | External Medical Summary | Summary of Care ---
Author Name Unknown Organization [place] [address] Care Team Providers Care Pullman Car Repairer Name Role Phone LuisGab dash Primary Care Provider Reason for Visit * Reason Onset Date Comments Allergy Injection 09/05/2020 Encounter Details Date Type Department Care Team Description 09/05/2020 Immunization/In jection Allergy/Immunology [facility] [address] [place] [address] Betty Nurse Allergy [facility] [address] [facility] [place] [address] [phone] Allergic rhinitis, unspecified seasonality, unspecified trigger* Allergies Active Allergy Reactions Severity Noted Date Comments [place] (Diagnostic) Anaphylaxis High 05/21/2017 Banana Edema airway High 01/10/2017 Cat Dander Anaphylaxis High 05/21/2017 Corylus Anaphylaxis High 05/21/2017 Latex Rash Low 01/10/2017 Lac Bovis Other (Please comment) 01/16/2017 Mouth tenderness. Peanut (Diagnostic) Anaphylaxis High 05/21/2017 Prednisone Psych complications 01/17/2017 agitation Sesame Seed (Diagnostic) Anaphylaxis High 05/21/2017 Soy Allergy Anaphylaxis High 01/16/2017 [place] Oil Edema airway High 01/10/2017 Wasp Venom Edema airway High 01/10/2017 documented as of this encounter (statuses as of 09/05/2020) Medications Medication Sig Dispensed Refills Start Date [...] SPRAY) 0.65 % nasal spray Administer 1 [place] into nostril as needed for Congestion. 0 [...] as of this encounter (statuses as of 09/05/2020) Active Problems Problem Noted Date Anxiety 03/28/2017 [...] as of this encounter (statuses as of 09/05/2020) Resolved Problems Problem Noted Date Resolved Date Reaction to allergy injection 05/19/2019 Pollen-food allergy syndrome 03/28/201708/2018 Encounter for supervision of other normal pregna ncy 03/13/2011 09/11/2016 Overview: ICD-10 update of inactive term Acute bronchitis, complicated 02/25/2010 Asthma with severity to be determined 02/13/2017 Overview: ICD-10 update of inactive term documented as of this encounter (statuses as of 09/05/2020) Immunizations Name Administration Dates Next Due Diptheria/Tetanus [...] as of this encounter Progress Notes * Lakshmi Obrien RN - 09/05/2020 4:12 PM EST Pre-injection Questionnaire Patient identified by [...] Documents on File Type Date Recorded Patient Lumber Sales Supervisor Expl 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
--- OUTSIDE RECORDS SUMMARY | 2023-04-16 16:16 | External Medical Summary | Summary of Care ---
Author Name Unknown Organization [place] [address] Care Team Providers Care Credit Control Manager Name Role Phone Gab Smith Primary Care Provider Reason for Visit * Reason Onset Date Comments Allergy Injection 07/29/2020 Encounter Details Date Type Department Care Team Description 07/29/2020 Immunization/In jection Allergy/Immunology [facility] [address] [place] [address] Betty Nurse Allergy [facility] [address] [place] [address] [phone] Allergic rhinitis, unspecified seasonality, unspecified trigger* Allergies Active Allergy Reactions Severity Noted Date Comments [place] (Diagnostic) Anaphylaxis High 05/21/2017 Banana Edema airway High 01/10/2017 Cat Dander Anaphylaxis High 05/21/2017 Corylus Anaphylaxis High 05/21/2017 Latex Rash Low 01/10/2017 Lac Bovis Other (Please comment) 01/16/2017 Mouth tenderness. Peanut (Diagnostic) Anaphylaxis High 05/21/2017 Prednisone Psych complications 01/17/2017 agitation Sesame Seed (Diagnostic) Anaphylaxis High 05/21/2017 Soy Allergy Anaphylaxis High 01/16/2017 [place] Oil Edema airway High 01/10/2017 Wasp Venom Edema airway High 01/10/2017 documented as of this encounter (statuses as of 07/29/2020) Medications Medication Sig Dispensed Refills Start Date [...] SPRAY) 0.65 % nasal spray Administer 1 [place] into nostril as needed for Congestion. 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 Encounter for supervision of other normal pregna ncy 03/13/2011 09/11/2016 Overview: ICD-10 update of inactive term Acute bronchitis, complicated 02/25/2010 Asthma with severity to be determined 02/13/2017 Overview: ICD-10 update of inactive term documented as of this encounter (statuses as of 07/29/2020) Immunizations Name Administration Dates Next Due Diptheria/Tetanus [...] Progress Notes * Liz Cr RN - 07/29/2020 12:24 PM EST Pre-injection Questionnaire Patient identified by [...] Telemedicine Allergy & Immunology Valeriy Milton MD [address] [place] [address] [phone] Health Maintenance Due Date Last Done Comments [...] on File Type Date Recorded Patient Retail Product Demo Specialist Expl 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
--- OUTSIDE RECORDS SUMMARY | 2023-04-16 16:16 | External Medical Summary | Summary of Care ---
Author Name Unknown Organization [place] [address] Care Team Providers Care Ladle Puller Name Role Phone LuisGab dash Primary Care Provider Reason for Visit * Reason Onset Date Comments Allergy Injection 08/26/2020 Encounter Details Date Type Department Care Team Description 08/26/2020 Immunization/In jection Allergy/Immunology [facility] [address] [place] [address] Betty Nurse Allergy [facility] [address] [address] [place] [address] [phone] Allergic rhinitis, unspecified seasonality, unspecified trigger* Allergies Active Allergy Reactions Severity Noted Date Comments [place] (Diagnostic) Anaphylaxis High 05/21/2017 Banana Edema airway High 01/10/2017 Cat Dander Anaphylaxis High 05/21/2017 Corylus Anaphylaxis High 05/21/2017 Latex Rash Low 01/10/2017 Lac Bovis Other (Please comment) 01/16/2017 Mouth tenderness. Peanut (Diagnostic) Anaphylaxis High 05/21/2017 Prednisone Psych complications 01/17/2017 agitation Sesame Seed (Diagnostic) Anaphylaxis High 05/21/2017 Soy Allergy Anaphylaxis High 01/16/2017 [place] Oil Edema airway High 01/10/2017 Wasp Venom Edema airway High 01/10/2017 documented as of this encounter (statuses as of 08/26/2020) Medications Medication Sig Dispensed Refills Start Date [...] SPRAY) 0.65 % nasal spray Administer 1 [place] into nostril as needed for Congestion. 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 Encounter for supervision of other normal pregna ncy 03/13/2011 09/11/2016 Overview: ICD-10 update of inactive term Acute bronchitis, complicated 02/25/2010 Asthma with severity to be determined 02/13/2017 Overview: ICD-10 update of inactive term documented as of this encounter (statuses as of 08/26/2020) Immunizations Name Administration Dates Next Due Diptheria/Tetanus [...] Progress Notes * Liz Cr RN - 08/26/2020 12:05 PM EST Pre-injection Questionnaire Patient identified by [...] Documents on File Type Date Recorded Patient Autism Teacher Expl 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
--- OUTSIDE RECORDS SUMMARY | 2023-04-16 16:16 | External Medical Summary | Summary of Care ---
Author Name Unknown Organization [facility] Address [place] [address] Care Team Providers Care Web Page Developer Name Role Phone LuisGab dash Primary Care Provider [phone] Reason for Visit * Reason Onset Date Comments Allergy Injection 09/23/2020 Encounter Details Date Type Department Care Team Description 09/23/2020 Immunization/In jection Allergy/Immunology [facility] [address] [place] [address] Betty Nurse Allergy [facility] [address] [place] [address] [phone] Allergic rhinitis, unspecified seasonality, unspecified trigger* Allergies Active Allergy Reactions Severity Noted Date Comments [place] (Diagnostic) Anaphylaxis High 05/21/2017 Banana Edema airway High 01/10/2017 Cat Dander Anaphylaxis High 05/21/2017 Corylus Anaphylaxis High 05/21/2017 Latex Rash Low 01/10/2017 Lac Bovis Other (Please comment) 01/16/2017 Mouth tenderness. Peanut (Diagnostic) Anaphylaxis High 05/21/2017 Prednisone Psych complications 01/17/2017 agitation Sesame Seed (Diagnostic) Anaphylaxis High 05/21/2017 Soy Allergy Anaphylaxis High 01/16/2017 [place] Oil Edema airway High 01/10/2017 Wasp Venom Edema airway High 01/10/2017 documented as of this encounter (statuses as of 09/23/2020) Medications Medication Sig Dispensed Refills Start Date [...] 0.65 % nasal spray Administer 1 [place] into nostril as needed for Congestion. 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
--- OUTSIDE RECORDS SUMMARY | 2023-04-16 16:17 | External Medical Summary | Summary of Care ---
Author Name Unknown Organization [place] [address] Care Team Providers Care Keypuncher Name Role Phone Gab Smith DO Primary Care Provider Reason for Visit * Reason Onset Date Comments Advice 06/01/2020 Encounter Details Date Type Department Care Team Description 06/01/2020 Telephone Allergy/Immunology [facility] [address] [place] [address] Beverly Del Angel PA-C [address] [place], [place] [id number] Advice Allergies Active Allergy Reactions Severity Noted Date Comments [place] (Diagnostic) Anaphylaxis High 05/21/2017 Banana Edema airway High 01/10/2017 Cat Dander Anaphylaxis High 05/21/2017 Corylus Anaphylaxis High 05/21/2017 Latex Rash Low 01/10/2017 Lac Bovis Other (Please comment) 01/16/2017 Mouth tenderness. Peanut (Diagnostic) Anaphylaxis High 05/21/2017 Prednisone Psych complications 01/17/2017 agitation Sesame Seed (Diagnostic) Anaphylaxis High 05/21/2017 Soy Allergy Anaphylaxis High 01/16/2017 [place] Oil Edema airway High 01/10/2017 Wasp Venom Edema airway High 01/10/2017 documented as of this encounter (statuses as of 06/01/2020) Medications Medication Sig Dispensed Refills Start Date [...] as of this encounter (statuses as of 06/01/2020) Active Problems Problem Noted Date Anxiety 03/28/2017 [...] as of this encounter (statuses as of 06/01/2020) Resolved Problems Problem Noted Date Resolved Date Reaction to allergy injection 05/19/2019 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 Oral antihistamines like Claritin or Benadryl are not that helpful. Since an irritant respiratory reaction can involve cough and wheezing, use of an inhaler such as albuterol may be helpful as well as removing oneself from the chemical irritant out into the fresh air. * Telephone Encounter - Marilee Bobby LPN - 06/01/2020 3:19 PM EDT PT also questioning how often she can take Claritin when she is in situations like this? Since it is every 24 hour med. Also questioning the max dose for benadryl in 24 hours. Instructed max dose is 300mg. Please advise. * Telephone Encounter - Marilee Bobby LPN - 06/01/2020 3:13 PM EDT Outgoing call, verified name and with patient. Pt has been informed of below message and verbalized understanding. Pt instructed to take inhaler as well. * Telephone Encounter - Valeriy Milton MD - 06/01/2020 3:03 PM EDT Clorox bleach is a chemical respiratory irritant. If people work with it in an enclosed space such as bathroom high concentrations can be inhaled which can lead to lightheadedness dizziness and even passing out episodes. Removing herself from the situation to the fresh air is the correct treatment.It is not related to her allergies. When using strong smelling chemicals open a window or run a fanto increase ventilation for the future * Telephone Encounter - Marilee Bobby LPN - 06/01/2020 2:27 PM EDT Incoming call form pt. Pt stating she was in bathroom and was cealnign with bleach. Pt felt dizzy. Denies SOB, no trouble breathing, ect. Pt sat outside for about 20 minutes in the fresh air. Pt livia taken medication today yet before cleaning. Following cleaning pt took med, sat for another 20 minutes. Started feeling better. Pt feels nauseous.Pt reports a lot of shakiness. Pt reports she has eaten breakfast. Pt feels flushed in her cheeks, dizzy still. Has been about an hour since medicine has been taken. Pt also took PEPCID for stomach with nauseous. Please review and advise. * Telephone Encounter - Brittany Payton, SUSAN - 06/01/2020 2:24 PM EDT Reason for patient's call: patient requesting to speak with a nurse. Patient was using cleaning products and is now having allergies. Patient asking what to look for next. Caller was transferred to [place] at the nurse line. documented in this encounter Plan of Treatment Upcoming Encounters Date Type Specialty Care Team Description 08/22/2020 Office Visit Allergy & Immunology Beverly Del Angel PA-C [address] [place], [place] [phone] Health Maintenance Due Date Last Done Comments [...] Documents on File Type Date Recorded Patient Engineering Project Manager Expl anation Advanced Directive service [...]
--- OUTSIDE RECORDS SUMMARY | 2023-04-16 16:17 | External Medical Summary | Summary of Care ---
Author Name Unknown Organization [place] [address] Care Team Providers Care Fbi Investigator Name Role Phone Gab Smith DO Primary Care Provider Reason for Visit * Reason Onset Date Comments Allergy Injection 06/10/2020 Encounter Details Date Type Department Care Team Description 06/10/2020 Immunization/In jection Allergy/Immunology [facility] [address] [place] [address] Betty, Nurse Allergy [facility] [address] [place] [address] [phone] Allergic rhinitis, unspecified seasonality, unspecified trigger* Allergies Active Allergy Reactions Severity Noted Date Comments [place] (Diagnostic) Anaphylaxis High 05/21/2017 Banana Edema airway High 01/10/2017 Cat Dander Anaphylaxis High 05/21/2017 Corylus Anaphylaxis High 05/21/2017 Latex Rash Low 01/10/2017 Lac Bovis Other (Please comment) 01/16/2017 Mouth tenderness. Peanut (Diagnostic) Anaphylaxis High 05/21/2017 Prednisone Psych complications 01/17/2017 agitation Sesame Seed (Diagnostic) Anaphylaxis High 05/21/2017 Soy Allergy Anaphylaxis High 01/16/2017 [place] Oil Edema airway High 01/10/2017 Wasp Venom Edema airway High 01/10/2017 documented as of this encounter (statuses as of 06/10/2020) Medications Medication Sig Dispensed Refills Start Date [...] SPRAY) 0.65 % nasal spray Administer 1 [place] into nostril as needed for Congestion. 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 Encounter for supervision of other normal pregna ncy 03/13/2011 09/11/2016 Overview: ICD-10 update of inactive term Acute bronchitis, complicated 02/25/2010 Asthma with severity to be determined 02/13/2017 Overview: ICD-10 update of inactive term documented as of this encounter (statuses as of 06/10/2020) Immunizations Name Administration Dates Next Due Diptheria/Tetanus [...] Progress Notes * Marilee Bobby LPN - 06/10/2020 12:17 PM EDT Pre-injection Questionnaire Patient identified [...] & Immunology Beverly Del Angel PA-C [address] [place] [address] [phone] Health Maintenance Due Date Last Done Comments [...] Documents on File Type Date Recorded Patient Linseed Oil Press Tender Expl 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
--- OUTSIDE RECORDS SUMMARY | 2023-04-16 16:17 | External Medical Summary | Summary of Care ---
Author Name Unknown Organization [place] [address] Care Team Providers Care Brick Paver Name Role Phone Gab Smith DO Primary Care Provider [phone] Reason for Visit * Reason Onset Date Comments Allergy Injection 06/24/2020 Encounter Details Date Type Department Care Team Description 06/24/2020 Immunization/In jection Allergy/Immunology [facility] [address] [place] [address] Betty, Nurse Allergy [facility] [address] [place] [address] [phone] Allergic rhinitis, unspecified seasonality, unspecified trigger* Allergies Active Allergy Reactions Severity Noted Date Comments [place] (Diagnostic) Anaphylaxis High 05/21/2017 Banana Edema airway High 01/10/2017 Cat Dander Anaphylaxis High 05/21/2017 Corylus Anaphylaxis High 05/21/2017 Latex Rash Low 01/10/2017 Lac Bovis Other (Please comment) 01/16/2017 Mouth tenderness. Peanut (Diagnostic) Anaphylaxis High 05/21/2017 Prednisone Psych complications 01/17/2017 agitation Sesame Seed (Diagnostic) Anaphylaxis High 05/21/2017 Soy Allergy Anaphylaxis High 01/16/2017 [place] Oil Edema airway High 01/10/2017 Wasp Venom Edema airway High 01/10/2017 documented as of this encounter (statuses as of 06/24/2020) Medications Medication Sig Dispensed Refills Start Date [...] SPRAY) 0.65 % nasal spray Administer 1 [place] into nostril as needed for Congestion. 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 Encounter for supervision of other normal pregna ncy 03/13/2011 09/11/2016 Overview: ICD-10 update of inactive term Acute bronchitis, complicated 02/25/2010 Asthma with severity to be determined 02/13/2017 Overview: ICD-10 update of inactive term documented as of this encounter (statuses as of 06/24/2020) Immunizations Name Administration Dates Next Due Diptheria/Tetanus [...] Progress Notes * Marilee Bobby LPN - 06/24/2020 12:40 PM EST Pre-injection Questionnaire Patient identified by [...] Allergy & Immunology Beverly Del Angel PA-C [address] [place] [address] [place] [phone] Health Maintenance Due Date Last Done Comments [...] Documents on File Type Date Recorded Patient Billing Clerk Expl 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
--- OUTSIDE RECORDS SUMMARY | 2023-04-16 16:17 | External Medical Summary | Summary of Care ---
Author Name Unknown Organization [place] [address] Care Team Providers Care Research & Analytics Manager Name Role Phone Gab Smith DO Primary Care Provider Reason for Visit * Reason Onset Date Comments Advice 06/01/2020 Encounter Details Date Type Department Care Team Description 06/01/2020 Telephone Allergy/Immunology [facility] [address] [place] [address] Beverly Del Angel PA-C [address] [place], [place] [phone] Advice Allergies Active Allergy Reactions Severity Noted Date Comments [place] (Diagnostic) Anaphylaxis High 05/21/2017 Banana Edema airway High 01/10/2017 Cat Dander Anaphylaxis High 05/21/2017 Corylus Anaphylaxis High 05/21/2017 Latex Rash Low 01/10/2017 Lac Bovis Other (Please comment) 01/16/2017 Mouth tenderness. Peanut (Diagnostic) Anaphylaxis High 05/21/2017 Prednisone Psych complications 01/17/2017 agitation Sesame Seed (Diagnostic) Anaphylaxis High 05/21/2017 Soy Allergy Anaphylaxis High 01/16/2017 [place] Oil Edema airway High 01/10/2017 Wasp Venom [...] SPRAY) 0.65 % nasal spray Administer 1 [place] into nostril as needed for Congestion. 0 [...] Encounter - Marilee Bobby LPN - 06/01/2020 4:27 PM EDT Outgoing call, verified name and with patient. Pt has been informed of below message and verbalized understanding. * Telephone Encounter - Valeriy Milton MD [...] and advise. * Telephone Encounter - Brittany Payton OSA - 06/01/2020 2:24 PM EDT Reason for patient's call: patient requesting to speak with a nurse. Patient was using cleaning products and is now having allergies. Patient asking what to look for next. Caller was transferred to [place] at the nurse line. documented in this encounter Plan of Treatment Upcoming Encounters Date Type Specialty Care Team Description 08/22/2020 Office Visit Allergy & Immunology Beverly Del Angel PA-C [address] [place] [id number] Health Maintenance Due Date Last Done Comments [...] on File Type Date Recorded Patient Supervisor Dry Paste Expl 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
--- OUTSIDE RECORDS SUMMARY | 2023-04-16 16:17 | External Medical Summary | Summary of Care ---
Author Name Unknown Organization [place] [address] Care Team Providers Care Web Development Instructor Name Role Phone Gab Smith DO Primary Care Provider Reason for Visit * Reason Onset Date Comments Allergy Injection 07/08/2020 Encounter Details Date Type Department Care Team Description 07/08/2020 Telephone Allergy/Immunology [facility] [address] [place] [address] Valeriy Milton MD [address] [place] [address] [phone] Allergy Injection Allergies Active Allergy Reactions Severity Noted Date Comments [place] (Diagnostic) Anaphylaxis High 05/21/2017 Banana Edema airway High 01/10/2017 Cat Dander Anaphylaxis High 05/21/2017 Corylus Anaphylaxis High 05/21/2017 Latex Rash Low 01/10/2017 Lac Bovis Other (Please comment) 01/16/2017 Mouth tenderness. Peanut (Diagnostic) Anaphylaxis High 05/21/2017 Prednisone Psych complications 01/17/2017 agitation Sesame Seed (Diagnostic) Anaphylaxis High 05/21/2017 Soy Allergy Anaphylaxis High 01/16/2017 [place] Oil Edema airway High 01/10/2017 Wasp Venom Edema airway High 01/10/2017 documented as of this encounter (statuses as of 07/08/2020) Medications Medication Sig Dispensed Refills Start Date [...] SPRAY) 0.65 % nasal spray Administer 1 [place] into nostril as needed for Congestion. 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 Given below information. Pt plans on coming in for allergy injection today. * Telephone Encounter - Federico Hernandes OSA - 07/08/2020 7:50 AM EST Reason for patient's call: returning call Caller was transferred to [place] at the nurse line. * Telephone Encounter - Marilee Bobby LPN - 07/08/2020 7:42 AM EST Outgoing call to pt. No answer, left message for pt return call to office at to discuss allergy shot. Pt vials today- today would be the last dose she can get out of the blue vials. And we wouldneed to mix new vials and it would pt patient behind and reduced doses. documented in this encounter Plan of Treatment Upcoming Encounters Date Type Specialty Care Team Description 08/22/2020 Office Visit Allergy & Immunology Beverly Del Angel PA-C [address] [place] [address] [phone] Health Maintenance Due Date Last Done Comments [...] Documents on File Type Date Recorded Patient Medical Equipment Repair Technician Expl 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
--- OUTSIDE RECORDS SUMMARY | 2023-04-16 16:17 | External Medical Summary | Summary of Care ---
Author Name Unknown Organization [place] [address] Care Team Providers Care Net Sql Developer Name Role Phone Gab Smith DO Primary Care Provider [phone] Reason for Visit * Reason Onset Date Comments Advice 06/01/2020 Encounter Details Date Type Department Care Team Description 06/01/2020 Telephone Allergy/Immunology [facility] [address] [place] [address] Beverly Del Angel PA-C 200 [place], [place] [id number] Advice Allergies Active Allergy Reactions Severity Noted Date Comments Peridot (Diagnostic) Anaphylaxis High 05/21/2017 Banana Edema airway High 01/10/2017 Cat Dander Anaphylaxis High 05/21/2017 Corylus Anaphylaxis High 05/21/2017 Latex Rash Low 01/10/2017 Lac Bovis Other (Please comment) 01/16/2017 Mouth tenderness. Peanut (Diagnostic) Anaphylaxis High 05/21/2017 Prednisone Psych complications 01/17/2017 agitation Sesame Seed (Diagnostic) Anaphylaxis High 05/21/2017 Soy Allergy Anaphylaxis High 01/16/2017 [place] Oil Edema airway High 01/10/2017 Wasp Venom [...] SPRAY) 0.65 % nasal spray Administer 1 [place] into nostril as needed for Congestion. 0 [...] look for next. Caller was transferred to [facility] at the nurse line. documented in this encounter Plan of Treatment Upcoming Encounters Date Type Specialty Care Team Description 08/22/2020 Office Visit Allergy & Immunology Beverly Del Angel PA-C 200 [place] [address] [phone] Health Maintenance Due Date Last Done Comments [...] Documents on File Type Date Recorded Patient Motor Vehicle Compliance Analyst Expl 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
--- OUTSIDE RECORDS SUMMARY | 2023-04-16 16:17 | External Medical Summary | Summary of Care ---
Author Name Unknown Organization [facility] [place] [address] Care Team Providers Care Renewable Energy Engineer Name Role Phone Gab Smith DO Primary Care Provider Reason for Visit * Reason Onset Date Comments Encounter Created in Error 06/01/2020 Encounter Details Date Type Department Care Team Description 06/01/2020 Telephone Family Practice [facility] [address] [place] [address] Gab Smith DO [address] [facility] [address] [phone] Encounter Created in Error Allergies Active Allergy Reactions Severity Noted Date Comments [place] (Diagnostic) Anaphylaxis High 05/21/2017 Banana Edema airway High 01/10/2017 Cat Dander Anaphylaxis High 05/21/2017 Corylus Anaphylaxis High 05/21/2017 Latex Rash Low 01/10/2017 Lac Bovis Other (Please comment) 01/16/2017 Mouth tenderness. Peanut (Diagnostic) Anaphylaxis High 05/21/2017 Prednisone Psych complications 01/17/2017 agitation Sesame Seed (Diagnostic) Anaphylaxis High 05/21/2017 Soy Allergy Anaphylaxis High 01/16/2017 [place] Oil Edema airway High 01/10/2017 Wasp Venom [...] SPRAY) 0.65 % nasal spray Administer 1 [place] into nostril as needed for Congestion. 0 [...] on file documented as of this encounter Plan of Treatment Upcoming Encounters Date Type Specialty Care Team Description 08/22/2020 Office Visit Allergy & Immunology Beverly Del Angel PA-C 200 [facility] [place] [address] [phone] Health Maintenance Due Date Last Done Comments [...] Documents on File Type Date Recorded Patient Freight Elevator Erector Expl 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
--- OUTSIDE RECORDS SUMMARY | 2023-04-16 16:17 | External Medical Summary | Summary of Care ---
Author Name Unknown Organization [place] [address] Care Team Providers Care Heater Engineer Helper Name Role Phone Gab Smith DO Primary Care Provider Reason for Visit * Reason Onset Date Comments Advice 06/01/2020 Encounter Details Date Type Department Care Team Description 06/01/2020 Telephone Allergy/Immunology [facility] [address] [place] [address] Beverly Del Angel PA-C 200 [place], [place] [id number] Advice Allergies Active Allergy Reactions Severity Noted Date Comments [place] (Diagnostic) Anaphylaxis High 05/21/2017 Banana Edema airway High 01/10/2017 Cat Dander Anaphylaxis High 05/21/2017 Corylus Anaphylaxis High 05/21/2017 Latex Rash Low 01/10/2017 Lac Bovis Other (Please comment) 01/16/2017 Mouth tenderness. Peanut (Diagnostic) Anaphylaxis High 05/21/2017 Prednisone Psych complications 01/17/2017 agitation Sesame Seed (Diagnostic) Anaphylaxis High 05/21/2017 Soy Allergy Anaphylaxis High 01/16/2017 [place] Oil Edema airway High 01/10/2017 Wasp Venom [...] SPRAY) 0.65 % nasal spray Administer 1 [place] into nostril as needed for Congestion. 0 [...] look for next. Caller was transferred to [place] at the nurse line. documented in this encounter Plan of Treatment Upcoming Encounters Date Type Specialty Care Team Description 08/22/2020 Office Visit Allergy & Immunology Beverly Del Angel PA-C 200 [place] [address] [phone] Health Maintenance Due Date Last Done Comments [...] Documents on File Type Date Recorded Patient Bed Setter Expl 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
--- OUTSIDE RECORDS SUMMARY | 2023-04-16 16:17 | External Medical Summary | Summary of Care ---
Author Name Unknown Organization [place] [address] Care Team Providers Care It Data Architect Name Role Phone Gab Smith DO Primary Care Provider Reason for Visit * Reason Onset Date Comments Allergy Serum 07/11/2020 Encounter Details Date Type Department Care Team Description 07/11/2020 Nurse Only Allergy/Immunology [facility] [address] [place] [address] Betty Nurse Allergy [facility] [address] [place] [address] [phone] Allergy Serum Allergies Active Allergy Reactions Severity Noted Date Comments [place] (Diagnostic) Anaphylaxis High 05/21/2017 Banana Edema airway High 01/10/2017 Cat Dander Anaphylaxis High 05/21/2017 Corylus Anaphylaxis High 05/21/2017 Latex Rash Low 01/10/2017 Lac Bovis Other (Please comment) 01/16/2017 Mouth tenderness. Peanut (Diagnostic) Anaphylaxis High 05/21/2017 Prednisone Psych complications 01/17/2017 agitation Sesame Seed (Diagnostic) Anaphylaxis High 05/21/2017 Soy Allergy Anaphylaxis High 01/16/2017 [place] Oil Edema airway High 01/10/2017 Wasp Venom [...] SPRAY) 0.65 % nasal spray Administer 1 [place] into nostril as needed for Congestion. 0 [...] & Immunology Beverly Del Angel PA-C 200 [facility] [place] [address] [phone] Scheduled Orders Name Type Priority Associated Diagnoses [...] Documents on File Type Date Recorded Patient White Shoe Ragger Expl 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
--- OUTSIDE RECORDS SUMMARY | 2023-04-16 16:17 | External Medical Summary | Summary of Care ---
Author Name Unknown Organization [place] [address] Care Team Providers Care Ski Molder Name Role Phone Gab Smith DO Primary Care Provider [phone] Reason for Visit * Reason Onset Date Comments Allergy Injection 06/17/2020 Encounter Details Date Type Department Care Team Description 06/17/2020 Immunization/In jection Allergy/Immunology [facility] [address] [place] [address] Betty, Nurse Allergy [facility] 200 [place] [address] [phone] Allergic rhinitis, unspecified seasonality, unspecified trigger* Allergies Active Allergy Reactions Severity Noted Date Comments [place] (Diagnostic) Anaphylaxis High 05/21/2017 Banana Edema airway High 01/10/2017 Cat Dander Anaphylaxis High 05/21/2017 Corylus Anaphylaxis High 05/21/2017 Latex Rash Low 01/10/2017 Lac Bovis Other (Please comment) 01/16/2017 Mouth tenderness. Peanut (Diagnostic) Anaphylaxis High 05/21/2017 Prednisone Psych complications 01/17/2017 agitation Sesame Seed (Diagnostic) Anaphylaxis High 05/21/2017 Soy Allergy Anaphylaxis High 01/16/2017 [place] Oil Edema airway High 01/10/2017 Wasp Venom Edema airway High 01/10/2017 documented as of this encounter (statuses as of 06/17/2020) Medications Medication Sig Dispensed Refills Start Date [...] SPRAY) 0.65 % nasal spray Administer 1 [place] into nostril as needed for Congestion. 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 Encounter for supervision of other normal pregna ncy 03/13/2011 09/11/2016 Overview: ICD-10 update of inactive term Acute bronchitis, complicated 02/25/2010 Asthma with severity to be determined 02/13/2017 Overview: ICD-10 update of inactive term documented as of this encounter (statuses as of 06/17/2020) Immunizations Name Administration Dates Next Due Diptheria/Tetanus [...] Progress Notes * Marilee Bobby LPN - 06/17/2020 12:26 PM EDT Pre-injection Questionnaire Patient identified by [...] & Immunology Beverly Del Angel PA-C 200 [place] [address] [phone] Health Maintenance Due Date Last Done Comments [...] Documents on File Type Date Recorded Patient Seat Scooper Machine Expl 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
--- OUTSIDE RECORDS SUMMARY | 2023-04-16 16:17 | External Medical Summary | Summary of Care ---
Author Name Unknown Organization [place] [address] Care Team Providers Care Games Dealer Name Role Phone Gab Smith DO Primary Care Provider Reason for Visit * Reason Onset Date Comments Allergy Injection 06/03/2020 Encounter Details Date Type Department Care Team Description 06/03/2020 Immunization/In jection Allergy/Immunology [facility] [address] [place] [address] Betty, Nurse Allergy [facility] 200 [place] [address] [phone] Allergic rhinitis, unspecified seasonality, unspecified trigger* Allergies Active Allergy Reactions Severity Noted Date Comments Brooks (Diagnostic) Anaphylaxis High 05/21/2017 Banana Edema airway High 01/10/2017 Cat Dander Anaphylaxis High 05/21/2017 Corylus Anaphylaxis High 05/21/2017 Latex Rash Low 01/10/2017 Lac Bovis Other (Please comment) 01/16/2017 Mouth tenderness. Peanut (Diagnostic) Anaphylaxis High 05/21/2017 Prednisone Psych complications 01/17/2017 agitation Sesame Seed (Diagnostic) Anaphylaxis High 05/21/2017 Soy Allergy Anaphylaxis High 01/16/2017 [place] Oil Edema airway High 01/10/2017 Wasp Venom Edema airway High 01/10/2017 documented as of this encounter (statuses as of 06/03/2020) Medications Medication Sig Dispensed Refills Start Date [...] SPRAY) 0.65 % nasal spray Administer 1 [place] into nostril as needed for Congestion. 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 Encounter for supervision of other normal pregna ncy 03/13/2011 09/11/2016 Overview: ICD-10 update of inactive term Acute bronchitis, complicated 02/25/2010 Asthma with severity to be determined 02/13/2017 Overview: ICD-10 update of inactive term documented as of this encounter (statuses as of 06/03/2020) Immunizations Name Administration Dates Next Due Diptheria/Tetanus [...] Progress Notes * Liz Cr RN - 06/03/2020 11:54 AM EDT Pre-injection Questionnaire Patient identified by [...] Allergy & Immunology Beverly Del Angel PA-C [address] [place] [address] [phone] Health Maintenance Due Date Last Done Comments [...] Documents on File Type Date Recorded Patient Data Center Engineer Expl 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
--- OUTSIDE RECORDS SUMMARY | 2023-04-16 16:17 | External Medical Summary | Summary of Care ---
Author Name Unknown Organization [place] [address] Care Team Providers Care Hides Inspector Name Role Phone Gab Smith DO Primary Care Provider Reason for Visit * Reason Onset Date Comments Allergy Injection 07/08/2020 Encounter Details Date Type Department Care Team Description 07/08/2020 Immunization/In jection Allergy/Immunology [facility] [address] [place] [address] Betty, Nurse Allergy [facility] 200 [place] [address] [phone] Allergic rhinitis, unspecified seasonality, unspecified trigger* Allergies Active Allergy Reactions Severity Noted Date Comments [place] (Diagnostic) Anaphylaxis High 05/21/2017 Banana Edema airway High 01/10/2017 Cat Dander Anaphylaxis High 05/21/2017 Corylus Anaphylaxis High 05/21/2017 Latex Rash Low 01/10/2017 Lac Bovis Other (Please comment) 01/16/2017 Mouth tenderness. Peanut (Diagnostic) Anaphylaxis High 05/21/2017 Prednisone Psych complications 01/17/2017 agitation Sesame Seed (Diagnostic) Anaphylaxis High 05/21/2017 Soy Allergy Anaphylaxis High 01/16/2017 [place] Oil Edema airway High 01/10/2017 Wasp Venom [...] SPRAY) 0.65 % nasal spray Administer 1 [place] into nostril as needed for Congestion. 0 [...] Progress Notes * Marilee Bobby LPN - 07/08/2020 9:40 AM EST Pre-injection Questionnaire Patient identified by [...] Allergy & Immunology Beverly Del Angel PA-C [address] [place] [address] [place] [address] [phone] Health Maintenance Due Date Last Done Comments [...] on File Type Date Recorded Patient Lumber Checker Expl 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
--- OUTSIDE RECORDS SUMMARY | 2023-04-16 16:19 | External Medical Summary | Summary of Care ---
Author Name Unknown Organization [place] [address] Care Team Providers Care Process Developer Name Role Phone Gab Smith DO Primary Care Provider Reason for Visit * Reason Comments Allergy Injection Encounter Details Date Type Department Care Team Description 04/21/2020 Immunization/In jection Allergy/Immunology [facility] [address] [place] [address] [place], Nurse Allergy [facility] [address] [place] [address] [phone] Need for prophylactic vaccination and inoculation against influenza*; Allergic rhinitis, unspecified seasonality, unspecified trigger Allergies Active Allergy Reactions Severity Noted Date Comments [place] (Diagnostic) Anaphylaxis High 05/21/2017 Banana Edema airway High 01/10/2017 Cat Dander Anaphylaxis High 05/21/2017 Corylus Anaphylaxis High 05/21/2017 Latex Rash Low 01/10/2017 Lac Bovis Other (Please comment) 01/16/2017 Mouth tenderness. Peanut (Diagnostic) Anaphylaxis High 05/21/2017 Prednisone Psych complications 01/17/2017 agitation Sesame Seed (Diagnostic) Anaphylaxis High 05/21/2017 Soy Allergy Anaphylaxis High 01/16/2017 [place] Oil Edema airway High 01/10/2017 Wasp Venom Edema airway High 01/10/2017 documented as of this encounter (statuses as of 04/21/2020) Medications Medication Sig Dispensed Refills Start Date [...] SPRAY) 0.65 % nasal spray Administer 1 [place] into nostril as needed for Congestion. 0 [...] Information Patient not taking. 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 Encounter for supervision of other normal pregna ncy 03/13/2011 09/11/2016 Overview: ICD-10 update of inactive term Acute bronchitis, complicated 02/25/2010 Asthma with severity to be determined 02/13/2017 Overview: ICD-10 update of inactive term documented as of this encounter (statuses as of 04/21/2020) Immunizations Name Administration Dates Next Due Diptheria/Tetanus [...] file Not on file Not on file Travel History Travel Start Travel End COVID-19 Exposure Response Date Recorded In the last month, have you been in contact with someone who was confirmed or suspected to have Coronavirus / COVID-19? No / Unsure 04/21/2020 12:08 PM EDT documented as of this encounter Patient Instructions * Patient Instructions* Liz Cr RN - 04/21/2020 12:52 PM EDT ~~PATIENT INSTRUCTIONS FOR FLU SHOT~~ Possible side effects of influenza vaccine, (flu shot), are usually mild and include: 1. Soreness or redness at injection site 2. Low grade fever 3. Body aches You may use Tylenol/Acetaminophen as needed for these symptoms. LET YOUR DOCTOR KNOW IMMEDIATELY IF YOU HAVE DIFFICULTY BREATHING OR SWALLOWING, EXPERIENCE ITCHINGOF FEET OR HANDS, HAVE SWELLING OF EYES, FACE OR INSIDE OF NOSE. documented in this encounter Progress Notes * Liz Cr RN - 04/21/2020 12:52 PM EDT PRE - ADMINISTRATION DOCUMENTATION Are you allergic to latex? No Are you experiencing any cold symptoms or fever? No Have you had Guillain-[place] Syndrome (an illness that causes paralysis) within the last 6 weeks? No Have you had the flu shot in the past? YES Have you ever had a reaction to the flu shot? No Liz Cr RN, 04/21/2020 12:52 PM Immunization Administration Documentation Time Out Procedure Performed: Yes Patient Identified (Ask Name/Date of ): Yes Does the patient have a fever greater than 101 degrees today? No Patient allergic to latex? No C Stock: No Immunization(s) verified: Yes, Immunization Name: Flu, VIS Sheet(s) given: Yes Verified Side and Site: Yes Verified Shot(s) with Parent(s)/Patient: Yes * Lorene Dhaliwal LPN - 04/21/2020 12:13 PM EDT Pre-injection Questionnaire Patient identified [...] & Immunology Beverly Del Angel PA-C 200 [place] [address] Health Maintenance Due Date Last Done Comments Pneumococcal Vaccine: Pediatrics (0 to 5 Years) and At-Risk Patients (6 to 64 Years) (1 of 1 - PPSV23) 1989 PAP SMEAR-EVERY 3 YRS,AGES 21-65 2004 DTaP,Tdap,and Td Vaccines (3 - Td) 01/30/2019 01/30/2009, 02/10/1998 Influenza Vaccine (FLU shot) (#1) 2020 *DEPRESSION SCREENING,ANNUAL FOR PTS 12 AND OVER 04/17/2020 MENINGOCOCCAL (MENACTRA/MENVEO) Aged Out No longer eligible b ased on patient's age to complete this topic documented as of this encounter Implants Not on filedocumented as of this encounter Visit Diagnoses Diagnosis Need for prophylactic vaccination and inoculation against influenza- Primary Allergic rhinitis, unspecified seasonality, unspecified trigger documented in this encounter Advance Directives Documents on File Type Date Recorded Patient Ground Services Instructor Expl 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
--- OUTSIDE RECORDS SUMMARY | 2023-04-16 16:19 | External Medical Summary | Summary of Care ---
Author Name Unknown Organization [place] [address] Care Team Providers Care Superintendent Operating Name Role Phone Gab Smith DO Primary Care Provider Reason for Visit * Reason Comments Allergy Injection Encounter Details Date Type Department Care Team Description 03/18/2020 Immunization/In jection Allergy/Immunology [facility] [address] [place] [address] Betty, Nurse Allergy [facility] [address] [place] [address] [phone] Allergic rhinitis, unspecified seasonality, unspecified trigger* Allergies Active Allergy Reactions Severity Noted Date Comments Brady (Diagnostic) Anaphylaxis High 05/21/2017 Banana Edema airway High 01/10/2017 Cat Dander Anaphylaxis High 05/21/2017 Corylus Anaphylaxis High 05/21/2017 Latex Rash Low 01/10/2017 Lac Bovis Other (Please comment) 01/16/2017 Mouth tenderness. Peanut (Diagnostic) Anaphylaxis High 05/21/2017 Prednisone Psych complications 01/17/2017 agitation Sesame Seed (Diagnostic) Anaphylaxis High 05/21/2017 Soy Allergy Anaphylaxis High 01/16/2017 [place] Oil Edema airway High 01/10/2017 Wasp Venom Edema airway High 01/10/2017 documented as of this encounter (statuses as of 03/18/2020) Medications Medication Sig Dispensed Refills Start Date [...] SPRAY) 0.65 % nasal spray Administer 1 [place] into nostril as needed for Congestion. 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 Encounter for supervision of other normal pregna ncy 03/13/2011 09/11/2016 Overview: ICD-10 update of inactive term Acute bronchitis, complicated 02/25/2010 Asthma with severity to be determined 02/13/2017 Overview: ICD-10 update of inactive term documented as of this encounter (statuses as of 03/18/2020) Immunizations Name Administration Dates Next Due Diptheria/Tetanus (Adult) 02/10/19982007 HEP A - Hepatitis A (Ped/Adole, 2-18 Yrs) 1999,06/12/1999 HEP B - Hepatitis B (Adole/High Risk Ped, 11-15 yrs 06/12/1999 07/13/1999 Hepatitis B, 0-19 yrs 04/24/2000 05/24/2000 MMR - Measles/Mumps/Rubella Vaccine 03/08/1995 PPD 11/21/2007,06/04/2001 TB Felicitas Test 07/01/1998 TDAP (age 10 [...] have Coronavirus / COVID-19? No / Unsure 03/18/2020 12:13 PM EDT documented as of this encounter Last Filed Vital Signs Vital Sign Reading Time Taken Comments Blood Pressure - - Pulse - - Temperature 36.6 C (97.9 F) 03/18/2020 12:17 PM E DT Respiratory Rate - - Oxygen Saturation - - Inhaled Oxygen Concentration - - Weight - - Height - - Body Mass Index - - documented in this encounter Progress Notes * Lorene Dhaliwal LPN - 03/18/2020 12:17 PM EDT Pre-injection Questionnaire Patient identified [...] medical condition? No Today's peak flow - Temp 97.9 *Allergy Injection documentation located in Allergy Injections CPSL Flowsheet* documented in this encounter Plan of Treatment Upcoming Encounters Date Type Specialty Care Team Description 08/22/2020 Office Visit Allergy & Immunology Beverly Del Angel PA-C 200 [place] [address] [phone] Health Maintenance Due Date Last Done Comments Pneumococcal Vaccine: Pediatrics (0 to 5 Years) and At-Risk Patients (6 to 64 Years) (1 of 1 - PPSV23) 1989 DTaP,Tdap,and Td Vaccines (3 - Td) 01/30/2019 01/30/2009, 02/10/1998 PAP SMEAR-EVERY 3 YRS,AGES 21-65 04/15/2020 Postponed from 07/27 (Done Elsewhere) Influenza Vaccine (FLU shot) (#1) 2020 MENINGOCOCCAL (MENACTRA/MENVEO) Aged Out No longer eligible b ased on patient's age to complete this topic documented as of this encounter Implants Not on filedocumented as of this encounter Visit Diagnoses Diagnosis Allergic rhinitis, unspecified seasonality, unspecified trigger- Primary documented in this encounter Advance Directives Documents on File Type Date Recorded Patient Hub Associate Expl 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
--- OUTSIDE RECORDS SUMMARY | 2023-04-16 16:19 | External Medical Summary | Summary of Care ---
Author Name Unknown Organization [place] [address] Care Team Providers Care Labor Operator Name Role Phone Gab Smith DO Primary Care Provider Reason for Visit * Reason Comments Advice Encounter Details Date Type Department Care Team Description 03/15/2020 Telephone Allergy/Immunology [facility] [address] [place], [place] [id number] Beverly Del Angel PA-C [address] [place] [address] [phone] Advice Allergies Active Allergy Reactions Severity Noted Date Comments [place] (Diagnostic) Anaphylaxis High 05/21/2017 Banana Edema airway High 01/10/2017 Cat Dander Anaphylaxis High 05/21/2017 Corylus Anaphylaxis High 05/21/2017 Latex Rash Low 01/10/2017 Lac Bovis Other (Please comment) 01/16/2017 Mouth tenderness. Peanut (Diagnostic) Anaphylaxis High 05/21/2017 Prednisone Psych complications 01/17/2017 agitation Sesame Seed (Diagnostic) Anaphylaxis High 05/21/2017 Soy Allergy Anaphylaxis High 01/16/2017 [place] Oil Edema airway High 01/10/2017 Wasp Venom Edema airway High 01/10/2017 documented as of this encounter (statuses as of 03/15/2020) Medications Medication Sig Dispensed Refills Start Date End Date Status Cranberry 250 MG CAPSIndications:arshid ing 500mg a day Take 1 Tab by mouth 2 times a day. Indications: taking 500mg a day 0 Active diphenhydrAMINE (BENADRYL) 25 MG Capsule Take 2 capsules at onset suspected allergic reaction; may repeat every 4-6 hrs. as needed. 40 Cap 1 02/13/2017 Active saline (OCEAN NASAL SPRAY) 0.65 % nasal spray Administer 1 [place] into nostril as needed for Congestion. 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 No / Unsure 03/01/2020 3:15 PM EDT documented as of this encounter Miscellaneous Notes * Telephone Encounter - Liz Cr RN - 03/15/2020 2:16 PM EDT Pt Notified. * Telephone Encounter - Beverly Del Angel PA-C - 03/15/2020 2:02 PM EDT Yes as long as she is well she can restart. [facility] * Telephone Encounter - Lorene Dhaliwal LPN - 03/15/2020 1:53 PM EDT Pt calling wants to start allergy shots this week please advise dose * Telephone Encounter - Zuleima Bennett OSA - 03/15/2020 1:52 PM EDT Reason for patient's call: questions about allergy shots & getting them Caller was transferred to [facility] at the nurse line. documented in this encounter Plan of Treatment Upcoming Encounters Date Type Specialty Care Team Description 08/22/2020 Office Visit Allergy & Immunology Beverly Del Angel PA-C [address] [place] [address] Health Maintenance Due Date Last Done [...] Documents on File Type Date Recorded Patient Business Applications Specialist Expl 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
--- OUTSIDE RECORDS SUMMARY | 2023-04-16 16:19 | External Medical Summary | Summary of Care ---
Author Name Unknown Organization [place] [address] Care Team Providers Care Personalization Specialist Name Role Phone Gab Smith DO Primary Care Provider Reason for Visit * Reason Onset Date Comments Allergy Injection 05/20/2020 Encounter Details Date Type Department Care Team Description 05/20/2020 Immunization/In jection Allergy/Immunology [facility] [address] [place] [address] Betty, Nurse Allergy [facility] [address] [place] [address] [phone] Allergic rhinitis, unspecified seasonality, unspecified trigger* Allergies Active Allergy Reactions Severity Noted Date Comments [place] (Diagnostic) Anaphylaxis High 05/21/2017 Banana Edema airway High 01/10/2017 Cat Dander Anaphylaxis High 05/21/2017 Corylus Anaphylaxis High 05/21/2017 Latex Rash Low 01/10/2017 Lac Bovis Other (Please comment) 01/16/2017 Mouth tenderness. Peanut (Diagnostic) Anaphylaxis High 05/21/2017 Prednisone Psych complications 01/17/2017 agitation Sesame Seed (Diagnostic) Anaphylaxis High 05/21/2017 Soy Allergy Anaphylaxis High 01/16/2017 [place] Oil Edema airway High 01/10/2017 Wasp Venom Edema airway High 01/10/2017 documented as of this encounter (statuses as of 05/20/2020) Medications Medication Sig Dispensed Refills Start Date [...] SPRAY) 0.65 % nasal spray Administer 1 [place] into nostril as needed for Congestion. 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
--- OUTSIDE RECORDS SUMMARY | 2023-04-16 16:19 | External Medical Summary | Summary of Care ---
Author Name Unknown Organization [place] [address] Care Team Providers Care Care Assistant Name Role Phone Gab Smith DO Primary Care Provider Reason for Visit * Reason Comments Advice Encounter Details Date Type Department Care Team Description 03/15/2020 Telephone Allergy/Immunology [facility] [address] [place], [place] [id number] Beverly Del Angel PA-C [address] [place] [address] [phone] Advice Allergies Active Allergy Reactions Severity Noted Date Comments [place] (Diagnostic) Anaphylaxis High 05/21/2017 Banana Edema airway High 01/10/2017 Cat Dander Anaphylaxis High 05/21/2017 Corylus Anaphylaxis High 05/21/2017 Latex Rash Low 01/10/2017 Lac Bovis Other (Please comment) 01/16/2017 Mouth tenderness. Peanut (Diagnostic) Anaphylaxis High 05/21/2017 Prednisone Psych complications 01/17/2017 agitation Sesame Seed (Diagnostic) Anaphylaxis High 05/21/2017 Soy Allergy Anaphylaxis High 01/16/2017 [place] Oil Edema airway High 01/10/2017 Wasp Venom [...] 0.65 % nasal spray Administer 1 [place] into nostril as needed for Congestion. 0 [...] [facility] * Telephone Encounter - Lorene Dhaliwal LPN - 03/15/2020 1:53 PM EDT Pt calling wants to start allergy shots this week please advise dose * Telephone Encounter - Zuleima Bennett OSA - 03/15/2020 1:52 PM EDT Reason for patient's call: questions about allergy shots & getting them Caller was transferred to [facility] at the nurse line. 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
--- OUTSIDE RECORDS SUMMARY | 2023-04-16 16:19 | External Medical Summary | Summary of Care ---
Author Name Unknown Organization [place] [address] Care Team Providers Care Training Specialist Name Role Phone Gab Smith DO Primary Care Provider Reason for Visit * Reason Comments Allergy Injection Encounter Details Date Type Department Care Team Description 03/25/2020 Immunization/In jection Allergy/Immunology [facility] [address] [place] [address] Betty, Nurse Allergy [facility] [address] [place] [address] [phone] Allergic rhinitis, unspecified seasonality, unspecified trigger* Allergies Active Allergy Reactions Severity Noted Date Comments [place] (Diagnostic) Anaphylaxis High 05/21/2017 Banana Edema airway High 01/10/2017 Cat Dander Anaphylaxis High 05/21/2017 Corylus Anaphylaxis High 05/21/2017 Latex Rash Low 01/10/2017 Lac Bovis Other (Please comment) 01/16/2017 Mouth tenderness. Peanut (Diagnostic) Anaphylaxis High 05/21/2017 Prednisone Psych complications 01/17/2017 agitation Sesame Seed (Diagnostic) Anaphylaxis High 05/21/2017 Soy Allergy Anaphylaxis High 01/16/2017 [place] Oil Edema airway High 01/10/2017 Wasp Venom Edema airway High 01/10/2017 documented as of this encounter (statuses as of 03/25/2020) Medications Medication Sig Dispensed Refills Start Date [...] SPRAY) 0.65 % nasal spray Administer 1 [place] into nostril as needed for Congestion. 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
--- OUTSIDE RECORDS SUMMARY | 2023-04-16 16:19 | External Medical Summary | Summary of Care ---
Author Name Unknown Organization [place] [address] Care Team Providers Care Cotton Ginner Helper Name Role Phone Gab Smith DO Primary Care Provider Reason for Visit * Reason Comments Allergy Injection Encounter Details Date Type Department Care Team Description 04/14/2020 Immunization/In jection Allergy/Immunology [facility] [address] [place] [address] Betty, Nurse Allergy [facility] [address] [place] [address] [phone] Allergic rhinitis, unspecified seasonality, unspecified trigger* Allergies Active Allergy Reactions Severity Noted Date Comments [place] (Diagnostic) Anaphylaxis High 05/21/2017 Banana Edema airway High 01/10/2017 Cat Dander Anaphylaxis High 05/21/2017 Corylus Anaphylaxis High 05/21/2017 Latex Rash Low 01/10/2017 Lac Bovis Other (Please comment) 01/16/2017 Mouth tenderness. Peanut (Diagnostic) Anaphylaxis High 05/21/2017 Prednisone Psych complications 01/17/2017 agitation Sesame Seed (Diagnostic) Anaphylaxis High 05/21/2017 Soy Allergy Anaphylaxis High 01/16/2017 [place] Oil Edema airway High 01/10/2017 Wasp Venom Edema airway High 01/10/2017 documented as of this encounter (statuses as of 04/14/2020) Medications Medication Sig Dispensed Refills Start Date [...] SPRAY) 0.65 % nasal spray Administer 1 [place] into nostril as needed for Congestion. 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 No / Unsure 04/14/2020 12:00 PM EDT documented as of this encounter Last Filed Vital Signs Vital Sign Reading Time Taken Comments Blood Pressure - - Pulse - - Temperature 36.9 C (98.5 F) 04/14/2020 12:16 PM E DT Respiratory Rate - - Oxygen Saturation - - Inhaled Oxygen Concentration - - Weight - - Height - - Body Mass Index - - documented in this encounter Progress Notes * Marilee Bobby LPN - 04/14/2020 12:14 PM EDT Pre-injection Questionnaire Patient identified [...] & Immunology Beverly Del Angel PA-C [address] [place] [address] [phone] Health Maintenance Due Date Last Done Comments [...] Documents on File Type Date 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
--- OUTSIDE RECORDS SUMMARY | 2023-04-16 16:19 | External Medical Summary | Summary of Care ---
Author Name Unknown Organization [place] [address] Care Team Providers Care Retail Management Keyholder Name Role Phone Gab Smith DO Primary Care Provider Reason for Visit * Reason Comments Allergy Injection Encounter Details Date Type Department Care Team Description 05/06/2020 Immunization/In jection Allergy/Immunology [facility] [address] [place] [address] Betty, Nurse Allergy [facility] [address] [place] [address] [phone] Allergic rhinitis, unspecified seasonality, unspecified trigger* Allergies Active Allergy Reactions Severity Noted Date Comments [place] (Diagnostic) Anaphylaxis High 05/21/2017 Banana Edema airway High 01/10/2017 Cat Dander Anaphylaxis High 05/21/2017 Corylus Anaphylaxis High 05/21/2017 Latex Rash Low 01/10/2017 Lac Bovis Other (Please comment) 01/16/2017 Mouth tenderness. Peanut (Diagnostic) Anaphylaxis High 05/21/2017 Prednisone Psych complications 01/17/2017 agitation Sesame Seed (Diagnostic) Anaphylaxis High 05/21/2017 Soy Allergy Anaphylaxis High 01/16/2017 [place] Oil Edema airway High 01/10/2017 Wasp Venom Edema airway High 01/10/2017 documented as of this encounter (statuses as of 05/06/2020) Medications Medication Sig Dispensed Refills Start Date [...] SPRAY) 0.65 % nasal spray Administer 1 [place] into nostril as needed for Congestion. 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 Encounter for supervision of other normal pregna ncy 03/13/2011 09/11/2016 Overview: ICD-10 update of inactive term Acute bronchitis, complicated 02/25/2010 Asthma with severity to be determined 02/13/2017 Overview: ICD-10 update of inactive term documented as of this encounter (statuses as of 05/06/2020) Immunizations Name Administration Dates Next Due Diptheria/Tetanus [...] Progress Notes * Lorene Dhaliwal LPN - 05/06/2020 12:21 PM EDT Pre-injection Questionnaire Patient identified by [...] Allergy & Immunology Beverly Del Angel PA-C [address] [place] [address] Health Maintenance Due Date Last Done [...] Documents on File Type Date Recorded 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
--- OUTSIDE RECORDS SUMMARY | 2023-04-16 16:19 | External Medical Summary | Summary of Care ---
Author Name Unknown Organization [place] [address] Care Team Providers Care Evidence Specialist Name Role Phone Gab Smith DO Primary Care Provider [phone] Reason for Visit * Reason Comments Allergy Injection Encounter Details Date Type Department Care Team Description 04/01/2020 Immunization/In jection Allergy/Immunology [facility] [address] [place] [address] Betty, Nurse Allergy [facility] [address] [place] [address] [phone] Allergic rhinitis, unspecified seasonality, unspecified trigger* Allergies Active Allergy Reactions Severity Noted Date Comments [place] (Diagnostic) Anaphylaxis High 05/21/2017 Banana Edema airway High 01/10/2017 Cat Dander Anaphylaxis High 05/21/2017 Corylus Anaphylaxis High 05/21/2017 Latex Rash Low 01/10/2017 Lac Bovis Other (Please comment) 01/16/2017 Mouth tenderness. Peanut (Diagnostic) Anaphylaxis High 05/21/2017 Prednisone Psych complications 01/17/2017 agitation Sesame Seed (Diagnostic) Anaphylaxis High 05/21/2017 Soy Allergy Anaphylaxis High 01/16/2017 [place] Oil Edema airway High 01/10/2017 Wasp Venom Edema airway High 01/10/2017 documented as of this encounter (statuses as of 04/01/2020) Medications Medication Sig Dispensed Refills Start Date [...] SPRAY) 0.65 % nasal spray Administer 1 [place] into nostril as needed for Congestion. 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 No / Unsure 04/01/2020 11:59 AM EDT documented as of this encounter Last Filed Vital Signs Vital Sign Reading Time Taken Comments Blood Pressure - - Pulse - - Temperature 36.4 C (97.5 F) 04/01/2020 12:10 PM E DT Respiratory Rate - - Oxygen Saturation - - Inhaled Oxygen Concentration - - Weight - - Height - - Body Mass Index - - documented in this encounter Progress Notes * Marilee Bobby LPN - 04/01/2020 12:08 PM EDT Pre-injection Questionnaire Patient identified [...] & Immunology Beverly Del Angel PA-C [address] [place] [address] [phone] Health Maintenance Due Date Last Done Comments [...] Documents on File Type Date Recorded 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
--- OUTSIDE RECORDS SUMMARY | 2023-04-16 16:19 | External Medical Summary | Summary of Care ---
Author Name Unknown Organization [place] [address] Care Team Providers Care Corporate Concierge Name Role Phone Gab Smith DO Primary Care Provider Reason for Visit * Reason Onset Date Comments Allergy Injection 05/13/2020 Encounter Details Date Type Department Care Team Description 05/13/2020 Immunization/In jection Allergy/Immunology [facility] [address] [place] [address] Betty, Nurse Allergy [facility] [address] [place] [address] [phone] Allergic rhinitis, unspecified seasonality, unspecified trigger* Allergies Active Allergy Reactions Severity Noted Date Comments [place] (Diagnostic) Anaphylaxis High 05/21/2017 Banana Edema airway High 01/10/2017 Cat Dander Anaphylaxis High 05/21/2017 Corylus Anaphylaxis High 05/21/2017 Latex Rash Low 01/10/2017 Lac Bovis Other (Please comment) 01/16/2017 Mouth tenderness. Peanut (Diagnostic) Anaphylaxis High 05/21/2017 Prednisone Psych complications 01/17/2017 agitation Sesame Seed (Diagnostic) Anaphylaxis High 05/21/2017 Soy Allergy Anaphylaxis High 01/16/2017 [place] Oil Edema airway High 01/10/2017 Wasp Venom Edema airway High 01/10/2017 documented as of this encounter (statuses as of 05/13/2020) Medications Medication Sig Dispensed Refills Start Date [...] SPRAY) 0.65 % nasal spray Administer 1 [place] into nostril as needed for Congestion. 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 Encounter for supervision of other normal pregna ncy 03/13/2011 09/11/2016 Overview: ICD-10 update of inactive term Acute bronchitis, complicated 02/25/2010 Asthma with severity to be determined 02/13/2017 Overview: ICD-10 update of inactive term documented as of this encounter (statuses as of 05/13/2020) Immunizations Name Administration Dates Next Due Diptheria/Tetanus [...] Progress Notes * Lorene Dhaliwal LPN - 05/13/2020 11:52 AM EDT Pre-injection Questionnaire Patient identified by [...] Allergy & Immunology Beverly Del Angel PA-C [address] [place], [place] [address] [id number] Health Maintenance Due Date Last Done Comments [...] Documents on File Type Date Recorded 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
--- OUTSIDE RECORDS SUMMARY | 2023-04-16 16:20 | External Medical Summary | Summary of Care ---
Author Name Unknown Organization [place] [address] Care Team Providers Care Loom Setter Name Role Phone Gab Smith DO Primary Care Provider [phone] Reason for Visit * Reason Comments Allergy Return Encounter Details Date Type Department Care Team Description 03/01/2020 Office Visit Allergy/Immunology [facility] [address] [place] [address] Valeriy Milton MD [address] [place] [address] [phone] Allergic reaction, subsequent encounter*; Chronic seasonal allergic rhinitis due to pollen; Allergic rhinitis due to dust; Chronic seasonal allergic rhinitis due to fungal spores; Non-seasonal allergic rhinitis due to animal hair and dander; Mild intermittent extrinsic asthma without complication; Peanut allergy; Tree nut allergy Allergies Active Allergy Reactions Severity Noted Date Comments [place] (Diagnostic) Anaphylaxis High 05/21/2017 Banana Edema airway High 01/10/2017 Cat Dander Anaphylaxis High 05/21/2017 Corylus Anaphylaxis High 05/21/2017 Latex Rash Low 01/10/2017 Lac Bovis Other (Please comment) 01/16/2017 Mouth tenderness. Peanut (Diagnostic) Anaphylaxis High 05/21/2017 Prednisone Psych complications 01/17/2017 agitation Sesame Seed (Diagnostic) Anaphylaxis High 05/21/2017 Soy Allergy Anaphylaxis High 01/16/2017 [place] Oil Edema airway High 01/10/2017 Wasp Venom Edema airway High 01/10/2017 documented as of this encounter (statuses as of 03/02/2020) Medications Medication Sig Dispensed Refills Start Date [...] SPRAY) 0.65 % nasal spray Administer 1 [place] into nostril as needed for Congestion. 0 [...] needed (wheezing). 60 Vial 5 10/26/2019 Active methylPREDNISolo ne (MEDROL DOSEPACK) 4 MG [...] Emergency room. 2 Each 3 03/01/2020 Active EPINEPHrine, anaphylaxis, (EPI-PEN) 0.3 MG/0.3ML SOAJ injectionIndicat ions:Allergic reaction, initial encounter For a severe reaction: Place orange end against the outer thigh, press firmly, hold in place for 10 seconds and go to the Emergency room. 2 Device 4 01/27/2019 03/01/2020 Discontinue d(Refill) documented as of this encounter (statuses as of 03/02/2020) Active Problems Problem Noted Date Anxiety 03/28/2017 [...] as of this encounter (statuses as of 03/02/2020) Resolved Problems Problem Noted Date Resolved Date Reaction to allergy injection 05/19/2019 Pollen-food allergy syndrome 03/28/201708/2018 Encounter for supervision of other normal pregna ncy 03/13/2011 09/11/2016 Overview: ICD-10 update of inactive term Acute bronchitis, complicated 02/25/2010 Asthma with severity to be determined 02/13/2017 Overview: ICD-10 update of inactive term documented as of this encounter (statuses as of 03/02/2020) Immunizations Name Administration Dates Next Due Diptheria/Tetanus [...] Sign Reading Time Taken Comments Blood Pressure 120/80 03/01/2020 3:30 PM EDT Pulse 60 03/01/2020 3:30 PM EDT Temperature 36.3 C (97.3 F) 03/01/2020 3:30 PM ED T Respiratory Rate 16 03/01/2020 3:30 PM EDT Oxygen Saturation - - Inhaled Oxygen Concentration - - Weight 89.8 kg (198 lb) 03/01/2020 3:30 PM EDT Height - - Body Mass Index 32.95 05/19/2019 12:21 PM EDT documented in this encounter Patient Instructions * Patient Instructions* Valeriy Milton MD - 03/01/2020 4:14 PM EDT EPIPEN AND EPIPEN JR. DIRECTIONS 1. Pull off correa activation cap. 2. Hold black tip near outer thigh (always apply only to thigh). 3. Jab firmly into outer thigh until Auto-Injector mechanism functions. 4. Hold in place and count slowly to 10 to allow the medication to penetrate the muscle. 5. The Epipen unit should then be removed and taken with you to the nearest Emergency Room for further medical evaluation. Pollen Avoidance Measures: Keep windows, doors closed; use air conditioning; dry clothes in vented dryer, not outside on clothesline; shower/bathe and change clothes right after outdoor activity; avoid outdoor activity during high pollen counts; use HEPA type air filtration system. Mold Avoidance Measures: Indoor: Clean moldy surfaces with a diluted bleach solution or a commercial mannequin mold maker; fix waterleaks; reduce indoor humidity to <50% with dehumidifiers or air conditioning. Outdoor: Avoid uncut antonio, working with compost and soil, raking leaves and hay; keep windows anddoors closed; use air conditioning Dust Mite Avoidance Measures: Essential: Encase mattress, pillow, box springs in allergen-impermeable covers; wash bedding weeklyin hot water(>130 degreesF); reduce indoor humidity to <50%; dust weekly and run HEPA type vacuum frame cleaner. Desirable: Remove carpets from bedroom and any [...] Progress Notes * Valeriy Milton MD - 03/01/2020 4:13 PM EDT SUBJECTIVE: Regina was evaluated for follow-up of her recent allergic reaction, allergic rhinitis, intermittent asthma and food allergies. She had a significant reaction in mid January. She was outside for several hours that day and had in fact been doing a lot of outdoor activities that week.. Her throat felt uncomfortable, initially described as pain but then says it felt like swelling,someone was choking her. She also had some nasal congestion and her ears were itchy. She took some Benadryl, Pepcid and used her albuterol inhaler which helped to some degree. She then took some Claritin and within an hour her symptoms were resolved. The next morning she woke up and still had some mild nasal congestion still had that feeling in herthroat like it was swelling. She took some Benadryl, Pepcid and Claritin again, and her symptoms partially improved. By this time she had called and spoke to her primary care provider he she reports suggested that she take her EpiPen but she does not feel her symptoms were severe enough to warrant the EpiPen. He did start her on a methyl Dosepak which she did not take. Symptoms seem to slowly dissipate over the next 2 days with just repeated Claritin and Benadryl. Symptoms never became severe enough that she felt need for urgent care visit to an emergency department. She had been doing well up since until this. She was not having a lot allergic rhinitis or asthma. Unfortunately she has not been in for her allergy injections since September because of the COVID crisis. She would like to resume immunotherapy. She has not needed oral antibiotics for recurrent sinus or ear infections. She has not had any asthma exacerbations since her last visit and rarely needs her albuterol inhaler.Asthma triggers have been respiratory infections, exercise, allergen exposure, odors and weather changes. She has not needed her EpiPen for any accidental ingestions of foods to which she is sensitive. Shecontinues to avoid peanuts, tree nuts, mandarin oranges, and sesame seeds. She is not having problems with allergic skin rashes. History of significant reaction November, after ingestion [...] lip burning and swelling. Her mouth became itchy. Her face began to swell and there was itching and hives over the face and neck. There was throat swelling and difficulty breathing in the chest. She did have to be seen in the emergency roomat that time. She also has history of reaction to a wasp sting at approximately age 8. Multiple stings may have been involved. She did have significant large local swelling of the lower extremities. She also developed chest tightness, shortness of breath and some throat swelling. She was never tested for insectsting allergy the time. She has not had any recent stings. Asthma Control Test Summary, Results are Patient [...] SPRAY) 0.65 % nasal spray Administer 1 [place] into nostril as needed for Congestion. diphenhydrAMINE (BENADRYL) 25 MG Capsule Take 2 capsules at onset suspected allergic reaction; may repeat every 4-6 hrs. as needed. 40 Cap 1 Cranberry 250 MG CAPS Take 1 Tab by mouth 2 times a day. Indications: taking 500mg a day methylPREDNISolone (MEDROL DOSEPACK) 4 MG TBPK follow package directions (Patient not taking: Reported on 03/01/2020) 21 Tab 0 EPINEPHrine, anaphylaxis, (EPI-PEN) 0.3 MG/0.3ML SOAJ injection For a severe reaction: Place orangeend against the outer thigh, press firmly, hold in place for 10 seconds and go to the Emergency room. 2 Device 4 Review of patient's allergies indicates: Allergen Reactions [place] (Diagnostic) Anaphylaxis Banana Edema airway Cat Dander Anaphylaxis [place] Tree Pollen [Corylus] Anaphylaxis Peanut (Diagnostic) Anaphylaxis Sesame Seed (Diagnostic) Anaphylaxis Soy Allergy Anaphylaxis [place] Oil Edema airway Wasp Venom Edema airway [...] floor and heart hardwood. 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 Pt reported: BP 120/80 | Pulse 60 | Temp 97.3 | Resp 16 | Wt 198 lbs (89.812kg) | BMI 32.95 kg/m | BSA 2.03 m PHYSICAL EXAM: No Acute Distress: Conjunctiva: Normal TM's: Clear Sinus Tenderness: None noted Nose:Pale mucosa; moderate inferior turbinate edema, no polyps, no mucopus [...] and egg (5 mm wheals), sesame and walnut(4 mm wheals), . Cashew and banana were negative. Spirometry 02/13/17 revealed minimally reduced FEV1/FVC ratio of 82%, but above lower limits of normal. FEV1 3.34 L, 103% of predicted. Findings are consistent with essentially normal spirometry. ASSESSMENT: ICD-10-CM 1. Allergic reaction, subsequent encounter T78.40XD 2. Chronic seasonal allergic rhinitis due to pollen J30.1 3. Allergic rhinitis due to dust J30.89 4. Chronic seasonal allergic rhinitis due to fungal spores J30.2 5. Non-seasonal allergic rhinitis due to animal hair and dander J30.81 6. Mild intermittent extrinsic asthma without complication J45.20 7. Peanut allergy Z91.010 8. 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 They may have been complicated by some secondary anxiety. She will continue to use a daily antihistamine during the pollen seasons like Claritin or Sandra 180 mg daily. Zyrtec is made her drowsy in the past. In case of worsening symptoms she will always add in Benadryl 50 mg immediately in every 4-6 hours as needed. If she were to go on to life-threatening throat tightness, difficulty swallowing, shortness of breath she should use her EpiPen in go to [facility] emergency room. If symptoms do not improve with oral antihistamines alone, she should call this office for further recommendations including possible oral steroid burst. Anaphylaxis action plan given to her regarding this protocol. Unfortunately she has gotten behind on her allergy immunotherapy injections because of reduced office schedule during the coronavirus pandemic. She is anxious to resume and will begin weekly buildup injections over the next few weeks to this office. Hopefully these will be instrumental in preventing future allergen related related reactions. Overall her asthma remains intermittent. She will continue albuterol 2 puffs every 4 hours as needed can be utilized. If worsening asthma despite this, she would follow up with her physicians acutely. She continues avoidance of foods; almond, sunflower/sesame seeds, peanut and soy. Serum IgE determinations however show very show low positive reactions to these foods however history is significant for reactions when ingested. She will continue to avoid them and use emergency Benadryl/Epipen protocol in case of accidental ingestion. Symptoms are also suggestive of pollen food allergy syndrome especially regarding reactions such as she related with mandarin oranges.Symptoms are almost always localized to the mouth and throat area and rarely become systemic. These foods should be avoided in their fresh/raw state, but are often tolerated cooked or processed. Treatment of choice is oral benadry l at onset of the mouth/throat itching. There is a remote history [...] Up: Return in about 6 months (around 09/01/2020), or if symptoms worsen or fail to improve, for Clinic Visit. | For: Clinic Visit Valeriy Milton MD Allergy and Immunology Jacek Aguilera (This note was completed using the dictation program Fluency Direct. As such, there may be misspellings, word substitutions, or other variations that should not change the essence of the clinical content of this encounter note.If there is need for further clarification, please direct questions to the provider listed above.) documented in this encounter Nursing Notes * Lorene Dhaliwal LPN - 03/01/2020 3:27 PM EDT The pt has been properly identified by confirmation of name and date of . Pt presents for allergy return. documented in this encounter Plan of Treatment Upcoming Encounters Date Type Specialty Care Team Description 08/22/2020 Office Visit Allergy & Immunology Beverly Del Angel PA-C [address] [place] [address] [phone] Health Maintenance Due Date Last Done Comments [...] Diagnoses Diagnosis Allergic reaction, subsequent encounter- Primary Chronic seasonal allergic rhinitis due to pollen Allergic rhinitis due to dust Allergic rhinitis due to other allergen Chronic seasonal allergic rhinitis due to fungal spores Non-seasonal allergic rhinitis due to animal hair and dander Mild intermittent extrinsic asthma without complication Peanut allergy Allergy to peanuts Tree nut allergy Allergy to other foods documented in this encounter Advance Directives Documents on File Type Date Recorded 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
--- OUTSIDE RECORDS SUMMARY | 2023-04-16 16:20 | External Medical Summary | Summary of Care ---
Author Name Unknown Organization [place] [address] Care Team Providers Care Tile Layer Supervisor Name Role Phone Gab Smith DO Primary Care Provider Reason for Visit * Reason Comments Allergy Return Encounter Details Date Type Department Care Team Description 02/08/2020 Telemedicine Allergy/Immunology [facility] [address] [place] [address] Beverly Del Angel PA-C [address] [place] [address] [phone] Chronic seasonal allergic rhinitis due to pollen*; Allergic rhinitis due to dust; Chronic seasonal allergic rhinitis due to fungal spores; Non-seasonal allergic rhinitis due to animal hair and dander; Mild intermittent extrinsic asthma without complication; Peanut allergy; Tree nut allergy Allergies Active Allergy Reactions Severity Noted Date Comments [place] (Diagnostic) Anaphylaxis High 05/21/2017 Banana Edema airway High 01/10/2017 Cat Dander Anaphylaxis High 05/21/2017 Corylus Anaphylaxis High 05/21/2017 Latex Rash Low 01/10/2017 Lac Bovis Other (Please comment) 01/16/2017 Mouth tenderness. Peanut (Diagnostic) Anaphylaxis High 05/21/2017 Prednisone Psych complications 01/17/2017 agitation Sesame Seed (Diagnostic) Anaphylaxis High 05/21/2017 Soy Allergy Anaphylaxis High 01/16/2017 [place] Oil Edema airway High 01/10/2017 Wasp Venom Edema airway High 01/10/2017 documented as of this encounter (statuses as of 02/09/2020) Medications Medication Sig Dispensed Refills Start Date [...] SPRAY) 0.65 % nasal spray Administer 1 [place] into nostril as needed for Congestion. 0 [...] allergy symptoms 1 Inhaler 5 06/23/2018 Active EPINEPHrine, anaphylaxis, (EPI-PEN) 0.3 MG/0.3ML SOAJ injectionIndicat ions:Allergic reaction, initial encounter For a severe reaction: Place orange end against the outer thigh, press firmly, hold in place for 10 seconds and go to the Emergency room. 2 Device 4 01/27/2019 Active albuterol-ipratr opium (DUONEB) 2.5-0.5 MG/3ML nebulizer solution Inhale 3 mL by mouth every 6 hours as needed (wheezing). 60 Vial 5 10/26/2019 Active methylPREDNISolo ne (MEDROL DOSEPACK) 4 MG TBPKIndications: Allergic reaction, initial encounter follow package directions 21 Tab 0 02/06/2020 Active famotidine (PEPCID) 20 MG Tablet Take 1 Tab by mouth 2 times a day as needed for Heartburn (or increased allergy symtpoms). 0 02/08/2020 Active Albuterol Sulfate (ALBUTEROL HFA) 108 (90 BASE) MCG/ACT inhaler Inhale 2 Puffs by mouth every 4 hours as needed for Cough, Shortness of Breath or Wheezing. 54 g 1 02/08/2020 Active vitamins ( RX) 27-1 MG Tablet Take 1 Tab by mouth daily. 0 02/08/2020 Discontinued (Medication List Clean Up) raNITIdine HCl (ZANTAC 75) 75 MG Tablet Take 75 mg by mouth 2 times a day as needed for Heartburn. 0 02/08/2020 Discontinued (Medication/ Dose Changed) Albuterol Sulfate (ALBUTEROL HFA) 108 (90 BASE) MCG/ACT inhaler Inhale 2 Puffs by mouth every 4 hours as needed for Cough, Shortness of Breath or Wheezing. 54 g 1 10/26/2019 02/08/2020 Discontinued (Refill) documented as of this encounter (statuses as of 02/09/2020) Active Problems Problem Noted Date Anxiety 03/28/2017 [...] as of this encounter (statuses as of 02/09/2020) Resolved Problems Problem Noted Date Resolved Date Reaction to allergy injection 05/19/2019 Pollen-food allergy syndrome 03/28/201708/2018 Encounter for supervision of other normal pregna ncy 03/13/2011 09/11/2016 Overview: ICD-10 update of inactive term Acute bronchitis, complicated 02/25/2010 Asthma with severity to be determined 02/13/2017 Overview: ICD-10 update of inactive term documented as of this encounter (statuses as of 02/09/2020) Immunizations Name Administration Dates Next Due Diptheria/Tetanus [...] have Coronavirus / COVID-19? No / Unsure 02/08/2020 5:30 PM EDT documented as of this encounter Last Filed Vital Signs Vital Sign Reading Time Taken Comments Blood Pressure - - Pulse - - Temperature - - Respiratory Rate - - Oxygen Saturation - - Inhaled Oxygen Concentration - - Weight 81.6 kg (180 lb) 02/08/2020 5:30 PM EDT Height - - Body Mass Index 29.95 05/19/2019 12:21 PM EDT documented in this encounter Progress Notes * Beverly Del Angel PA-C - 02/09/2020 6:34 AM EDT After connecting to the patient via telephone, the patient was identified by name and date of . Patient was then informed that this was a telephone call only visit. The patient agreed to participate. Visit Disposition: Routine follow-up Total call duration was 34 minutes. SUBJECTIVE: Regina was contacted via telephone today for follow-up of her allergic rhinitis, intermittent asthma and food allergies. Three days ago she was outside for several hours. She went inside and her throat felt uncomfortable. She initially described as pain but then says it felt like someone was choking her. She also had some nasal congestion in her ears were itchy. She took some Benadryl, Pepcid and used her albuterol inhaler. That helps some. She then took some Claritin and within an hour her symptoms were resolved. The next morning she woke up and still had some mild nasal congestion still had that feeling in herthroat like someone was choking her. She took some Benadryl, Pepcid and Claritin again. And again her symptoms improved. By this time she had called and spoke to her primary care provider he she reports suggested that she take her EpiPen but she does not feel her symptoms were severe enough to warrant the EpiPen. He did start her on a methyl Dosepak. Yesterday and today she still has that feeling in her throat but she is able to swallow and eat. She has a heaviness in her chest. She had been doing well up since until this. She was not having a lot allergic rhinitis or asthma. She has not been in for her allergy injections since September because of the COVID crisis. She wouldlike to resume immunotherapy. Asthma Control Test Summary, Results are Patient [...] hours as needed (wheezing). 60 Vial 5 EPINEPHrine, anaphylaxis, (EPI-PEN) 0.3 MG/0.3ML SOAJ injection For a severe reaction: Place orange end against the outer thigh, press firmly, hold in place for 10 seconds and go to the Emergencyroom. 2 Device 4 fluticasone (FLONASE) 50 MCG/ACT nasal spray Administer [...] SPRAY) 0.65 % nasal spray Administer 1 [place] into nostril as needed for Congestion. diphenhydrAMINE (BENADRYL) 25 MG Capsule Take 2 capsules at onset suspected allergic reaction; may repeat every 4-6 hrs. as needed. 40 Cap 1 Cranberry 250 MG CAPS Take 1 Tab by mouth 2 times a day. Indications: taking 500mg a day Review of patient's allergies indicates: Allergen Reactions [place] (Diagnostic) Anaphylaxis Banana Edema airway Cat Dander Anaphylaxis [place] Pollen [Corylus] Anaphylaxis Peanut (Diagnostic) Anaphylaxis Sesame Seed (Diagnostic) Anaphylaxis Soy Allergy Anaphylaxis [place] Oil Edema airway Wasp Venom Edema airway [...] floor and heart hardwood. 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 Pt reported: Wt 180 lbs (81.647kg) | BMI 29.95 kg/m | BSA 1.93 m PHYSICAL EXAM: Exam not done as visit was conducted via the telephone OBJECTIVE DATA: Component Latest Ref Rng & [...] allergy Z91.010 7. Tree nut allergy Z91.018 PLAN: Avoidance measures regarding pollens, molds, dust mites and animal danders should be continued. She was outside exposed to pollen for several hours on Saturday. She then had some nasal congestion and itchy ears. She then felt what she describes as a choking like sensation in her throat. She took Benadryl, Pepcid and Claritin along with albuterol and the symptoms resolved within an hour. She then woke up the next morning and had some mild nasal congestion, heaviness in her chest and that sensation in her throat. The heaviness in her chest persisted until today which is now 3 days later. She was concerned about an ongoing allergic reaction. An IgE mediated allergic reaction would include more systemic severe symptoms such as diffuse urticaria obvious trouble swallowing or significantshortness of breath and would only last for few hours typically. I am not concerned about allergic reaction but just possibly ongoing allergic symptoms of nasal congestion and chest tightness from her asthma probably complicated by some underlying anxiety. For the next several days she will use Claritin 10 mg twice daily to help with her symptoms. She will continue to add in Benadryl as needed for acute symptoms. She should also continue the Pepcid to treat her acid reflux. She will contact the office at the end of the week with an update. In general she should continue Claritin 10 mg daily for her allergic rhinitis and add in Flonase asneeded for any increased symptoms. She has started immunotherapy but and never been up to maintenance and then has not been in because of the COVID crisis. She would like to resume. She will not resume immunotherapy until her current symptoms improved. She will have to start her injections from [facility] again. Overall her asthma remains intermittent. She will [...] Up: Return in about 6 months (around 08/09/2020) for Clinic Visit. | For: Clinic Visit Beverly Del Angel, Physician Health And Safety Manager Allergy and Immunology Jacek Blanc (This note was completed using the dictation program Fluency Direct. As such, there may be misspellings, word substitutions, or other variations that should not change the essence of the clinical content of this encounter note.If there is need for further clarification, please direct questions to the provider listed above.) documented in this encounter Nursing Notes * Marilee Bobby LPN - 02/08/2020 5:29 PM EDT The pt has been properly identified by confirmation of name and date of . Pt has been struggling with allergies. Stating had a allergic reaction. documented in this encounter Plan of Treatment Health Maintenance Due Date Last Done Comments Pneumococcal Vaccine: Pediatrics (0 to 5 Years) and At-Risk Patients (6 to 64 Years) (1 of 1 - PPSV23) 1989 DTaP,Tdap,and Td Vaccines (3 - Td) 01/30/2019 01/30/2009, 02/10/1998 PAP SMEAR-EVERY 3 YRS,AGES 21-65 04/15/2020 Postponed from 07/27 (Done Elsewhere) Influenza Vaccine (FLU shot) (Season Ended) 2020 MENINGOCOCCAL (MENACTRA/MENVEO) Aged Out No longer [...] Documents on File Type Date Recorded Patient Doctor'S Assistant Expl 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
--- OUTSIDE RECORDS SUMMARY | 2023-04-16 16:20 | External Medical Summary | Summary of Care ---
Author Name Unknown Organization [place] [address] Care Team Providers Care Slip Presser Name Role Phone Gab Smith Primary Care Provider [phone] Reason for Visit * Reason Comments Advice Encounter Details Date Type Department Care Team Description 02/06/2020 Telephone Allergy/Immunology [facility] [address] [place] [address] Valeriy Milton MD [address] [place] [address] [phone] Advice Allergies Active Allergy Reactions Severity Noted Date Comments [place] (Diagnostic) Anaphylaxis High 05/21/2017 Banana Edema airway High 01/10/2017 Cat Dander Anaphylaxis High 05/21/2017 Corylus Anaphylaxis High 05/21/2017 Latex Rash Low 01/10/2017 Lac Bovis Other (Please comment) 01/16/2017 Mouth tenderness. Peanut (Diagnostic) Anaphylaxis High 05/21/2017 Prednisone Psych complications 01/17/2017 agitation Sesame Seed (Diagnostic) Anaphylaxis High 05/21/2017 Soy Allergy Anaphylaxis High 01/16/2017 [place] Oil Edema airway High 01/10/2017 Wasp Venom Edema airway High 01/10/2017 documented as of this encounter (statuses as of 02/06/2020) Medications Medication Sig Dispensed Refills Start Date [...] SPRAY) 0.65 % nasal spray Administer 1 [place] into nostril as needed for Congestion. 0 Active loratadine ODT (CLARITIN REDITAB) 10 MG TBDP Take 1 tab daily for nasal allergy symptoms 0 09/04/2017 Active vitamins ( RX) 27-1 MG Tablet Take 1 Tab by mouth daily. 0 Active cromolyn sodium (CROLOM) 4 % ophthalmic [...] Emergency room. 2 Device 4 01/27/2019 Active raNITIdine HCl (ZANTAC 75) 75 MG Tablet Take 75 mg by mouth 2 times a day as needed for Heartburn. 0 Active Albuterol Sulfate (ALBUTEROL HFA) 108 (90 BASE) MCG/ACT inhaler Inhale 2 Puffs by mouth every 4 hours as needed for Cough, Shortness of Breath or Wheezing. 54 g 1 10/26/2019 Active albuterol-ipratr opium (DUONEB) 2.5-0.5 MG/3ML nebulizer solution Inhale 3 mL by mouth every 6 hours as needed (wheezing). 60 Vial 5 10/26/2019 Active methylPREDNISolo ne (MEDROL DOSEPACK) 4 MG TBPKIndications: Allergic reaction, initial encounter follow package directions 21 Tab 0 02/06/2020 Active PredniSONE (DELTASONE) 20 MG Tablet Take 2 tablets as a one time dose for significant mouth/thorat swelling 20 Tab 1 02/13/2017 02/06/2020 Discontinue d(Medicatio n List Clean Up) documented as of this encounter (statuses as of 02/06/2020) Active Problems Problem Noted Date Anxiety 03/28/2017 [...] as of this encounter (statuses as of 02/06/2020) Resolved Problems Problem Noted Date Resolved Date Reaction to allergy injection 05/19/2019 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 Patient advised use EpiPen for acute severe allergic reaction. Patient advised continue albuterol HFA 2 puffs Q 4-6 hours p.r.n.. Patient advised to go to ER if symptoms worsen or persist * Telephone Encounter - Joaquina Cordova LPN - 02/06/2020 12:[address] Smith, I spoke with pt advise her to go to the Urgent care. Pt declined d/t having 7 children and did not want to bring anything home. Pt states she has prednisone from a few years ago but does not like the affect it has on her. Pt states she has follwed Dr Milton advice from the last time this happened in November but taking the extra Claritin only helped for awhile. Pt was going to take another Benadryl at 12:25 pt states if that does not seem to help she will go to Urgent Care. Advise pt if sx worsen or SOB increases she should go to the ER. * Telephone Encounter - Milagros Mendez OSA - 02/06/2020 10:38 AM EDT Reason for patient's call: Allergic reaction, throat swelled yesterday, spoke to Dr Milton and instructed her with what to do. However, Dr Milton is on vacation and is having issues again today. Caller was transferred to [facility] at the nurse line. * Telephone Encounter - Milagros Mendez OSA - 02/06/2020 8:29 AM EDT Pt called stating she is still having an allergic reaction and isnt sure what she needs to do today. Pt stated she spoke to Dr Milton yesterday and is following the instructions but she is still having the feeling in her chest. Transferred to [place]. documented in this encounter Plan of Treatment [...] this encounter Visit Diagnoses Diagnosis Allergic reaction, initial encounter- Primary documented in this encounter Advance Directives Documents on File Type Date Recorded Patient Machine Design Engineer Expl 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
--- OUTSIDE RECORDS SUMMARY | 2023-04-16 16:20 | External Medical Summary | Summary of Care ---
Author Name Unknown Organization [place] [address] Care Team Providers Care It Web Development Consultant Name Role Phone Gab Smith Primary Care Provider [phone] Reason for Visit * Reason Comments Advice Encounter Details Date Type Department Care Team Description 02/06/2020 Telephone Allergy/Immunology [facility] [address] [place] [address] Valeriy Milton MD [address] [place] [address] [phone] Advice Allergies Active Allergy Reactions Severity Noted Date Comments [place] (Diagnostic) Anaphylaxis High 05/21/2017 Banana Edema airway High 01/10/2017 Cat Dander Anaphylaxis High 05/21/2017 Corylus Anaphylaxis High 05/21/2017 Latex Rash Low 01/10/2017 Lac Bovis Other (Please comment) 01/16/2017 Mouth tenderness. Peanut (Diagnostic) Anaphylaxis High 05/21/2017 Prednisone Psych complications 01/17/2017 agitation Sesame Seed (Diagnostic) Anaphylaxis High 05/21/2017 Soy Allergy Anaphylaxis High 01/16/2017 [place] Oil Edema airway High 01/10/2017 Wasp Venom Edema airway High 01/10/2017 documented as of this encounter (statuses as of 02/08/2020) Medications Medication Sig Dispensed Refills Start Date [...] SPRAY) 0.65 % nasal spray Administer 1 [place] into nostril as needed for Congestion. 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 Pt is aware of 5;30 overbook appointment * Telephone Encounter - Beverly Del Angel PA-C - 02/08/2020 12:27 PM EDT Please see if she would agree to a telephone visit today. I can see her after my last pt today. I need to talk to her and get the details of reaction and discuss shots with her then. * Telephone Encounter - Lorene Dhaliwal LPN - 02/08/2020 8:04 AM EDT Called pt to see how she was doing. Pt states she had an allergic reaction felt it through her throat and chest. Pt states she has done all of the recommendations with Claritin, Flonase, and Benadryl. Pt states her PCP advised her to use her EPI Pen she didn't want to take it because she didn't want to go to the ER. PCP sent in Medrol pack because pt had issues with prednisone. Pt states she could still talk so she did not give herself the Epi Pen, benadryl started to work. Pt has not started to take the steroid. Pt states that the Benadryl was working, the feeling came back Saturday so she used the Claritin, Benadryl and Flonase. Pt states this am she feels ok pt states she doesn't want to take the steroid if she doesn't have to take it she states her throat feels ok, feels a little hoarse, no trouble breathing. Pt is asking about her allergy shots as well she wants to come back in for them. I advised I have to ask the physician for guidance especially since she is having issues. Please advise * Telephone Encounter - Gab Smith DO [...] issues again today. Caller was transferred [place] [facility] at the nurse line. * Telephone Encounter - Milagros Mendez OSA - 02/06/2020 8:29 AM EDT Pt called stating she is still having an allergic reaction and isnt sure what she needs to do today. Pt stated she spoke to Dr Milton yesterday and is following the instructions but she is still having the feeling in her chest. Transferred to [place]. documented in this encounter Plan of Treatment Upcoming Encounters Date Type Specialty Care Team Description 02/08/2020 Telemedicine Allergy & Immunology Beverly Del Angel PA-C [address] [facility] [place] [address] [phone] Health Maintenance Due Date Last Done Comments [...] on File Type Date Recorded Patient Data Warehouse Specialist Expl 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
--- OUTSIDE RECORDS SUMMARY | 2023-04-16 16:20 | External Medical Summary | Summary of Care ---
Author Name Unknown Organization [place] [address] Care Team Providers Care Hydraulic Specialist Name Role Phone Gab Smith Primary Care Provider [phone] Reason for Visit * Reason Comments Advice Encounter Details Date Type Department Care Team Description 02/06/2020 Telephone Allergy/Immunology [facility] [address] [place] [address] Valeriy Milton MD [address] [place] [address] [phone] Advice Allergies Active Allergy Reactions Severity Noted Date Comments [place] (Diagnostic) Anaphylaxis High 05/21/2017 Banana Edema airway High 01/10/2017 Cat Dander Anaphylaxis High 05/21/2017 Corylus Anaphylaxis High 05/21/2017 Latex Rash Low 01/10/2017 Lac Bovis Other (Please comment) 01/16/2017 Mouth tenderness. Peanut (Diagnostic) Anaphylaxis High 05/21/2017 Prednisone Psych complications 01/17/2017 agitation Sesame Seed (Diagnostic) Anaphylaxis High 05/21/2017 Soy Allergy Anaphylaxis High 01/16/2017 [place] Oil Edema airway High 01/10/2017 Wasp Venom [...] SPRAY) 0.65 % nasal spray Administer 1 [place] into nostril as needed for Congestion. [...] issues again today. Caller was transferred to [place] at the nurse line. * Telephone Encounter - Milagros Mendez OSA - 02/06/2020 8:29 AM EDT Pt called stating she is still having an allergic reaction and isnt sure what she needs to do today. Pt stated she spoke to Dr Milton yesterday and is following the instructions but she is still having the feeling in her chest. Transferred to [place]. documented in this encounter Plan of Treatment [...] on File Type Date Recorded Patient Health Facilities Surveyor Expl 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
--- OUTSIDE RECORDS SUMMARY | 2023-04-16 16:20 | External Medical Summary | Summary of Care ---
Author Name Unknown Organization [place] [address] Care Team Providers Care Wrapper Stemmer Hand Name Role Phone Gab Smith Primary Care Provider [phone] Reason for Visit * Reason Comments Advice Encounter Details Date Type Department Care Team Description 02/06/2020 Telephone Allergy/Immunology [facility] [address] [place] [address] Valeriy Milton MD [address] [place] [address] [phone] Advice Allergies Active Allergy Reactions Severity Noted Date Comments [place] (Diagnostic) Anaphylaxis High 05/21/2017 Banana Edema airway High 01/10/2017 Cat Dander Anaphylaxis High 05/21/2017 Corylus Anaphylaxis High 05/21/2017 Latex Rash Low 01/10/2017 Lac Bovis Other (Please comment) 01/16/2017 Mouth tenderness. Peanut (Diagnostic) Anaphylaxis High 05/21/2017 Prednisone Psych complications 01/17/2017 agitation Sesame Seed (Diagnostic) Anaphylaxis High 05/21/2017 Soy Allergy Anaphylaxis High 01/16/2017 [place] Oil Edema airway High 01/10/2017 Wasp Venom [...] issues again today. Caller was transferred to [facility] at the nurse line. * Telephone Encounter - Milagros Mendez OSA - 02/06/2020 8:29 AM EDT Pt called stating she is still having an allergic reaction and isnt sure what she needs to do today. Pt stated she spoke to Dr Milton yesterday and is following the instructions but she is still having the feeling in her chest. Transferred to [place]. documented in this encounter Plan of Treatment [...] Documents on File Type Date Recorded Patient Forest Products Teacher Expl 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
--- OUTSIDE RECORDS SUMMARY | 2023-04-16 16:20 | External Medical Summary | Summary of Care ---
Author Name Unknown Organization [place] [address] Care Team Providers Care Filament Welder Name Role Phone Gab Smith DO Primary Care Provider Reason for Visit * Reason Comments Allergy Return Encounter Details Date Type Department Care Team Description 03/01/2020 Office Visit Allergy/Immunology [facility] [address] [place] [address] Valeriy Milton MD [address] [place] [address] [phone] Allergic reaction, subsequent encounter*; Chronic seasonal allergic rhinitis due to pollen; Allergic rhinitis due to dust; Chronic seasonal allergic rhinitis due to fungal spores; Non-seasonal allergic rhinitis due to animal hair and dander; Mild intermittent extrinsic asthma without complication; Peanut allergy; Tree nut allergy Allergies Active Allergy Reactions Severity Noted Date Comments [place] (Diagnostic) Anaphylaxis High 05/21/2017 Banana Edema airway High 01/10/2017 Cat Dander Anaphylaxis High 05/21/2017 Corylus Anaphylaxis High 05/21/2017 Latex Rash Low 01/10/2017 Lac Bovis Other (Please comment) 01/16/2017 Mouth tenderness. Peanut (Diagnostic) Anaphylaxis High 05/21/2017 Prednisone Psych complications 01/17/2017 agitation Sesame Seed (Diagnostic) Anaphylaxis High 05/21/2017 Soy Allergy Anaphylaxis High 01/16/2017 [place] Oil Edema airway High 01/10/2017 Wasp [...] SPRAY) 0.65 % nasal spray Administer 1 [place] into nostril as needed for Congestion. 0 [...] a diluted bleach solution or a commercial injection mold technician; fix waterleaks; reduce indoor humidity to <50% with dehumidifiers or air conditioning. Outdoor: Avoid uncut antonio, working with compost and soil, raking leaves and hay; keep windows anddoors closed; use air conditioning Dust Mite Avoidance Measures: Essential: Encase mattress, pillow, box springs in allergen-impermeable covers; wash bedding weeklyin hot water(>130 degreesF); reduce indoor humidity to <50%; dust weekly and run HEPA type vacuum cesspool cleaner. Desirable: Remove carpets from bedroom and [...] SPRAY) 0.65 % nasal spray Administer 1 [place] into nostril as needed for Congestion. diphenhydrAMINE [...] Review of patient's allergies indicates: Allergen Reactions [place] (Diagnostic) Anaphylaxis Banana Edema airway Cat Dander Anaphylaxis [place] Tree Pollen [Corylus] Anaphylaxis Peanut (Diagnostic) Anaphylaxis Sesame Seed (Diagnostic) Anaphylaxis Soy Allergy Anaphylaxis [place] Oil Edema airway Wasp Venom Edema airway [...] floor and heart hardwood. 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 Pt [...] should use her EpiPen in go to [facility] emergency room. If symptoms do not [...] & Immunology Beverly Del Angel PA-C 200 [place] [address] [phone] Health Maintenance Due Date Last Done Comments [...] Documents on File Type Date Recorded Patient Braille Proofreader Expl 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
--- OUTSIDE RECORDS SUMMARY | 2023-04-16 16:21 | External Medical Summary | Summary of Care ---
Author Name Unknown Organization [place] [address] Care Team Providers Care Help Desk Intern Name Role Phone Luis, Gab Primary Care Provider [phone] Reason for Visit * Reason Comments Allergy Injection Encounter Details Date Type Department Care Team Description 10/02/2019 Immunization/In jection Allergy/Immunology [facility] [address] [place], [place] [id number] Betty, Nurse Allergy [place] [address] [place] [address] [phone] Allergic rhinitis, unspecified seasonality, unspecified trigger* Allergies Active Allergy Reactions Severity Noted Date Comments [place] (Diagnostic) Anaphylaxis High 05/21/2017 Banana Edema airway High 01/10/2017 Cat Dander Anaphylaxis High 05/21/2017 Corylus Anaphylaxis High 05/21/2017 Latex Rash Low 01/10/2017 Lac Bovis Other (Please comment) 01/16/2017 Mouth tenderness. Peanut (Diagnostic) Anaphylaxis High 05/21/2017 Prednisone Psych complications 01/17/2017 agitation Sesame Seed (Diagnostic) Anaphylaxis High 05/21/2017 Soy Allergy Anaphylaxis High 01/16/2017 [place] Oil Edema airway High 01/10/2017 Wasp Venom Edema airway High 01/10/2017 documented as of this encounter (statuses as of 10/02/2019) Medications Medication Sig Dispensed Refills Start Date End Date Status Cranberry 250 MG CAPSIndications:rashid ing 500mg a day Take 1 Tab by mouth 2 times a day. Indications: taking 500mg a day 0 Active albuterol-ipratropi um (DUONEB) 2.5-0.5 MG/3ML nebulizer solution Inhale 3 mL by mouth every 6 hours as needed (wheezing). 60 Vial 5 01/15/2017 Active diphenhydrAMINE (BENADRYL) 25 MG Capsule Take 2 capsules at onset suspected allergic reaction; may repeat every 4-6 hrs. as needed. 40 Cap 1 02/13/2017 Active PredniSONE (DELTASONE) 20 MG Tablet Take 2 tablets as a one time dose for significant mouth/thorat swelling 20 Tab 1 02/13/2017 Active saline (OCEAN NASAL SPRAY) 0.65 % nasal spray Administer 1 [place] into nostril as needed for Congestion. 0 [...] Active EPINEPHrine, anaphylaxis, (EPI-PEN) 0.3 MG/0.3ML SOAJ injectionIndication s:Allergic reaction, initial encounter For a severe reaction: Place orange end against the outer thigh, press firmly, hold in place for 10 seconds and go to the Emergency room. 2 Device 4 01/27/2019 Active albuterol HFA (VENTOLIN HFA) 108 (90 BASE) MCG/ACT inhaler Inhale 2 Puffs by mouth every 4 hours as needed for Cough, Shortness of Breath or Wheezing. 1 Inhaler 3 01/27/2019 Active raNITIdine HCl (ZANTAC 75) 75 MG Tablet Take 75 mg by mouth 2 times a day as needed for Heartburn. 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 Yes, itching and swelling that lasted just that day 5. Are you on any new medications [...] 01/30/2009, 02/10/1998 Influenza Vaccine (FLU shot) (#1) 2019 PAP SMEAR-EVERY 3 YRS,AGES 21-65 04/15/2020 Postponed from 07/27 (Done Elsewhere) MENINGOCOCCAL (MENACTRA/MENVEO) Aged Out No longer eligible b ased on patient's age to complete this topic documented as of this encounter Implants Not on filedocumented as of this encounter Visit Diagnoses Diagnosis Allergic rhinitis, unspecified seasonality, unspecified trigger- Primary documented in this encounter Advance Directives Documents on File Type Date Recorded Patient Dj Instructor Expl 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
--- OUTSIDE RECORDS SUMMARY | 2023-04-16 16:21 | External Medical Summary | Summary of Care ---
Author Name Unknown Organization [place] [address] Care Team Providers Care Loss Control Consultant Name Role Phone Gab Smith Primary Care Provider [phone] Reason for Visit * Reason Comments Medication Refill Encounter Details Date Type Department Care Team Description 10/26/2019 Refill Allergy/Immunology [facility] [address] [place] [address] Ramses Bryant MD [address] [place] [address] [phone] Allergies Active Allergy Reactions Severity Noted Date Comments [place] (Diagnostic) Anaphylaxis High 05/21/2017 Banana Edema airway High 01/10/2017 Cat Dander Anaphylaxis High 05/21/2017 Corylus Anaphylaxis High 05/21/2017 Latex Rash Low 01/10/2017 Lac [place]ov[place] Other (Please comment) 01/16/2017 Mouth tenderness. Peanut (Diagnostic) Anaphylaxis High 05/21/2017 Prednisone Psych complications 01/17/2017 agitation Sesame Seed (Diagnostic) Anaphylaxis High 05/21/2017 Soy Allergy Anaphylaxis High 01/16/2017 [place] Oil Edema airway High 01/10/2017 Wasp Venom Edema airway High 01/10/2017 documented as of this encounter (statuses as of 10/26/2019) Medications Medication Sig Dispensed Refills Start Date End Date Status Cranberry 250 MG CAPSIndications: taking 500mg a day Take 1 Tab by mouth 2 times a day. Indications: taking 500mg a day 0 Active albuterol-ipratr opium (DUONEB) 2.5-0.5 MG/3ML nebulizer [...] SPRAY) 0.65 % nasal spray Administer 1 [place] into nostril as needed for Congestion. 0 [...] or Wheezing. 54 g 1 10/26/2019 Active albuterol HFA (VENTOLIN HFA) 108 (90 BASE) MCG/ACT inhaler Inhale 2 Puffs by mouth every 4 hours as needed for Cough, Shortness of Breath or Wheezing. 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 Encounter for supervision of other normal pregna ncy 03/13/2011 09/11/2016 Overview: ICD-10 update of inactive term Acute bronchitis, complicated 02/25/2010 Asthma with severity to be determined 02/13/2017 Overview: ICD-10 update of inactive term documented as of this encounter (statuses as of 10/26/2019) Immunizations Name Administration Dates Next Due Diptheria/Tetanus [...] Telephone Encounter - Ramses Bryant MD - 10/26/2019 12:34 PM EDT Signed Prescriptions: Disp Refills Albuterol Sulfate (ALBUTEROL HFA) 108 (90 *54 g 1 Sig: Inhale 2 Puffs by mouth every 4 hours as needed for Cough, Shortness of Breath or Wheezing. Authorizing Provider: RAMSES BRYANT * Telephone Encounter - Lev Mayorga PHARM Tech - 10/26/2019 12:12 PM EDT Pending Prescriptions: Disp Refills Albuterol Sulfate (ALBUTEROL HFA) 108 (90*54 g 1 Sig: Inhale 2 Puffs by mouth every 4 hours as needed for Cough, Shortness of Breath or Wheezing. Last Office Visit: 05/19/2019 Next Office Visit: No Future Appointments If no future appointments scheduled, and last appointment is greater than a year ago, please schedule patient for a follow-up appointment Last date the medication was ordered: 01/27/2019 Pharmacy: [facility] [address] Is this request for a controlled substance?No Urine Drug Screen:No results found for this or any previous visit. Patient Phone Numbers Labs: Lab Results Component Value Date/Time CREAT 1.00 01/14/2017 CREAT 0.7 10/10/2016 03:01 PM POTASSIUM 4.4 10/10/2016 03:01 PM TSH 0.80 10/05/2016 01:47 PM ALT 27 [...] Documents on File Type Date Recorded Patient Creping Machine Operator Expl anation Advanced Directive service [...]
--- OUTSIDE RECORDS SUMMARY | 2023-04-16 16:21 | External Medical Summary | Summary of Care ---
Author Name Unknown Organization [place] [address] Care Team Providers Care Egg Gatherer Name Role Phone Gab Smith Primary Care Provider [phone] Reason for Visit * Reason Comments Appointment Encounter Details Date Type Department Care Team Description 07/28/2019 Telephone Allergy/Immunology [facility] [address] [place] [address] Valeriy Milton MD [address] [place] [address] [phone] Appointment Allergies Active Allergy Reactions Severity Noted Date Comments [place] (Diagnostic) Anaphylaxis High 05/21/2017 Banana Edema airway High 01/10/2017 Cat Dander Anaphylaxis High 05/21/2017 Corylus Anaphylaxis High 05/21/2017 Latex Rash Low 01/10/2017 Lac Bovis Other (Please comment) 01/16/2017 Mouth tenderness. Peanut (Diagnostic) Anaphylaxis High 05/21/2017 Prednisone Psych complications 01/17/2017 agitation Sesame Seed (Diagnostic) Anaphylaxis High 05/21/2017 Soy Allergy Anaphylaxis High 01/16/2017 [place] Oil Edema airway High 01/10/2017 Wasp Venom Edema airway High 01/10/2017 documented as of this encounter (statuses as of 07/28/2019) Medications Medication Sig Dispensed Refills Start Date [...] 0.65 % nasal spray Administer 1 [place] into nostril as needed for Congestion. 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 * Telephone Encounter - Valeriy Milton MD - 07/28/2019 11:53 AM EST She is very late. Will have to reduce her to the blue 1:100 dilution 0.25 mL each bottle if she resumes this week. * Telephone Encounter - Marilee Bobby LPN - 07/28/2019 11:47 AM EST Incoming call from patient verified name and . Patient planning on coming in today for allergy injection. Last injection on 06/23/19 and received 0.10ml out of yellow vial. Since then new vials have been mixed- if patient would have been in the week of the -08 of July should have received 0.40ml out of blue vial. Patient wants to come in for injection today what dose do you want to start her at? Stating she hasn't come in due to 3 back to back viruses. documented in this encounter Plan of Treatment Health Maintenance Due Date Last Done Comments Pneumococcal Vaccine: Pediatrics (0 to 5 Years) and At-Risk Patients (6 to 64 Years) (1 of 1 - PPSV23) 1989 DTaP,Tdap,and Td Vaccines (3 - Td) 01/30/2019 01/30/2009, 02/10/1998 Influenza Vaccine (FLU shot) (#1) 2019 PAP SMEAR-EVERY 3 YRS,AGES 21-65 04/15/2020 Postponed from 07/27 (Done Elsewhere) MENINGOCOCCAL (MENACTRA) Aged Out No longer eligible based on patient's age to complete this topic documented as of this encounter Implants Not on filedocumented as of this encounter Advance Directives Documents on File Type Date Recorded Patient Legal Researcher Expl 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
--- OUTSIDE RECORDS SUMMARY | 2023-04-16 16:21 | External Medical Summary | Summary of Care ---
Author Name Unknown Organization [place] [address] Care Team Providers Care Deicer Kit Assembler Name Role Phone Luis, Gab Primary Care Provider [phone] Reason for Visit * Reason Comments Allergy Injection Encounter Details Date Type Department Care Team Description 08/06/2019 Immunization/In jection Allergy/Immunology [facility] [address] [place], [place] [id number] Betty, Nurse Allergy [facility] [address] [place] [address] [phone] Allergic rhinitis, unspecified seasonality, unspecified trigger* Allergies Active Allergy Reactions Severity Noted Date Comments [place] (Diagnostic) Anaphylaxis High 05/21/2017 Banana Edema airway High 01/10/2017 Cat Dander Anaphylaxis High 05/21/2017 Corylus Anaphylaxis High 05/21/2017 Latex Rash Low 01/10/2017 Lac Bovis Other (Please comment) 01/16/2017 Mouth tenderness. Peanut (Diagnostic) Anaphylaxis High 05/21/2017 Prednisone Psych complications 01/17/2017 agitation Sesame Seed (Diagnostic) Anaphylaxis High 05/21/2017 Soy Allergy Anaphylaxis High 01/16/2017 [place] Oil Edema airway High 01/10/2017 Wasp Venom Edema airway High 01/10/2017 documented as of this encounter (statuses as of 08/06/2019) Medications Medication Sig Dispensed Refills Start Date [...] SPRAY) 0.65 % nasal spray Administer 1 [place] into nostril as needed for Congestion. 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 Encounter for supervision of other normal pregna ncy 03/13/2011 09/11/2016 Overview: ICD-10 update of inactive term Acute bronchitis, complicated 02/25/2010 Asthma with severity to be determined 02/13/2017 Overview: ICD-10 update of inactive term documented as of this encounter (statuses as of 08/06/2019) Immunizations Name Administration Dates Next Due Diptheria/Tetanus [...] Progress Notes * Marilee Bobby LPN - 08/06/2019 11:55 AM EST Pre-injection Questionnaire Patient identified by [...] Documents on File Type Date Recorded Patient Crane Ladle Person Expl 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
--- OUTSIDE RECORDS SUMMARY | 2023-04-16 16:21 | External Medical Summary | Summary of Care ---
Author Name Unknown Organization [place] [address] Care Team Providers Care Public Health Professor Name Role Phone Gab Smith Primary Care Provider [phone] Reason for Visit * Reason Comments Advice Encounter Details Date Type Department Care Team Description 11/21/2019 Telephone Allergy/Immunology [facility] [address] [place], [place] [id number] Valeriy Milton MD [address] [place] [address] [phone] Advice Allergies Active Allergy Reactions Severity Noted Date Comments [place] (Diagnostic) Anaphylaxis High 05/21/2017 Banana Edema airway High 01/10/2017 Cat Dander Anaphylaxis High 05/21/2017 Corylus Anaphylaxis High 05/21/2017 Latex Rash Low 01/10/2017 Lac Bovis Other (Please comment) 01/16/2017 Mouth tenderness. Peanut (Diagnostic) Anaphylaxis High 05/21/2017 Prednisone Psych complications 01/17/2017 agitation Sesame Seed (Diagnostic) Anaphylaxis High 05/21/2017 Soy Allergy Anaphylaxis High 01/16/2017 [place] Oil Edema airway High 01/10/2017 Wasp Venom Edema airway High 01/10/2017 documented as of this encounter (statuses as of 11/23/2019) Medications Medication Sig Dispensed Refills Start Date [...] SPRAY) 0.65 % nasal spray Administer 1 [place] into nostril as needed for Congestion. 0 [...] or Wheezing. 54 g 1 10/26/2019 Active albuterol-ipratropi um (DUONEB) 2.5-0.5 MG/3ML nebulizer solution Inhale 3 mL by mouth every 6 hours as needed (wheezing). 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 Has not needed benadryl since Sat. Using Albuterol prn-needed it x 1 on Saturday. Advised pt to wear a mask when outside d/t pollen and mold allergies. Pt to call with update on Sat/, sooner prn. FYI * Telephone Encounter - Valeriy Milton MD - 11/21/2019 10:32 PM EDT Pt called around 9:00 pm. Was outdoors most of the day, ? Significant pollen exposures. This evening experienced some throat itching and tightness and chest tightness. Some cough noted but no wheezing. No fever. Took 2 puffs of albuterol and oral benadryl with some relief being noted. No generalized itching or hives. Recommend claritin 10 mg now, may repeat benadryl 50 mg every 4-6 hrs as needed.and additional albuterol 2 puffs q4hrs as needed for worsening cough or wheezing. If worsening symptoms despite this, go to ER. documented in this encounter Plan of Treatment [...] Documents on File Type Date Recorded Patient Supercharger Repair Supervisor Expl 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
--- OUTSIDE RECORDS SUMMARY | 2023-04-16 16:21 | External Medical Summary | Summary of Care ---
Author Name Unknown Organization [place] [address] Care Team Providers Care Veterinary Manager Name Role Phone Luis, Gab Primary Care Provider [phone] Reason for Visit * Reason Comments Allergy Injection Encounter Details Date Type Department Care Team Description 09/04/2019 Immunization/In jection Allergy/Immunology [facility] [address] [place], [place] [phone] Betty, Nurse Allergy [facility] [address] [place] [address] [phone] Allergic rhinitis, unspecified seasonality, unspecified trigger* Allergies Active Allergy Reactions Severity Noted Date Comments [place] (Diagnostic) Anaphylaxis High 05/21/2017 Banana Edema airway High 01/10/2017 Cat Dander Anaphylaxis High 05/21/2017 Corylus Anaphylaxis High 05/21/2017 Latex Rash Low 01/10/2017 Lac Bovis Other (Please comment) 01/16/2017 Mouth tenderness. Peanut (Diagnostic) Anaphylaxis High 05/21/2017 Prednisone Psych complications 01/17/2017 agitation Sesame Seed (Diagnostic) Anaphylaxis High 05/21/2017 Soy Allergy Anaphylaxis High 01/16/2017 [place] Oil Edema airway High 01/10/2017 Wasp Venom Edema airway High 01/10/2017 documented as of this encounter (statuses as of 09/04/2019) Medications Medication Sig Dispensed Refills Start Date [...] SPRAY) 0.65 % nasal spray Administer 1 [place] into nostril as needed for Congestion. 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
--- OUTSIDE RECORDS SUMMARY | 2023-04-16 16:21 | External Medical Summary | Summary of Care ---
Author Name Unknown Organization [place] [address] Care Team Providers Care Section Leader Screen Printing Name Role Phone Luis, Gab Primary Care Provider [phone] Reason for Visit * Reason Comments Allergy Injection Encounter Details Date Type Department Care Team Description 10/09/2019 Immunization/In jection Allergy/Immunology [facility] [address] [place], [place] [id number] Betty, Nurse Allergy [facility] [address] [place] [address] [phone] Allergic rhinitis, unspecified seasonality, unspecified trigger* Allergies Active Allergy Reactions Severity Noted Date Comments [place] (Diagnostic) Anaphylaxis High 05/21/2017 Banana Edema airway High 01/10/2017 Cat Dander Anaphylaxis High 05/21/2017 Corylus Anaphylaxis High 05/21/2017 Latex Rash Low 01/10/2017 Lac Bovis Other (Please comment) 01/16/2017 Mouth tenderness. Peanut (Diagnostic) Anaphylaxis High 05/21/2017 Prednisone Psych complications 01/17/2017 agitation Sesame Seed (Diagnostic) Anaphylaxis High 05/21/2017 Soy Allergy Anaphylaxis High 01/16/2017 [place] Oil Edema airway High 01/10/2017 Wasp Venom Edema airway High 01/10/2017 documented as of this encounter (statuses as of 10/09/2019) Medications Medication Sig Dispensed Refills Start Date [...] SPRAY) 0.65 % nasal spray Administer 1 [place] into nostril as needed for Congestion. 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 Encounter for supervision of other normal pregna ncy 03/13/2011 09/11/2016 Overview: ICD-10 update of inactive term Acute bronchitis, complicated 02/25/2010 Asthma with severity to be determined 02/13/2017 Overview: ICD-10 update of inactive term documented as of this encounter (statuses as of 10/09/2019) Immunizations Name Administration Dates Next Due Diptheria/Tetanus [...] Progress Notes * Liz Cr RN - 10/09/2019 12:24 PM EST Pre-injection Questionnaire Patient identified [...] Documents on File Type Date Recorded Patient Assistant Corporate Controller Expl 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
--- OUTSIDE RECORDS SUMMARY | 2023-04-16 16:21 | External Medical Summary | Summary of Care ---
Author Name Unknown Organization [place] [address] Care Team Providers Care Mash Grinder Name Role Phone Luis, Gab Primary Care Provider [phone] Reason for Visit * Reason Comments Allergy Injection Encounter Details Date Type Department Care Team Description 08/21/2019 Immunization/In jection Allergy/Immunology [facility] [address] [place], [place] [id number] Betty, Nurse Allergy [facility] [address] [place] [address] [phone] Allergic rhinitis, unspecified seasonality, unspecified trigger* Allergies Active Allergy Reactions Severity Noted Date Comments [place] (Diagnostic) Anaphylaxis High 05/21/2017 Banana Edema airway High 01/10/2017 Cat Dander Anaphylaxis High 05/21/2017 Corylus Anaphylaxis High 05/21/2017 Latex Rash Low 01/10/2017 Lac Bovis Other (Please comment) 01/16/2017 Mouth tenderness. Peanut (Diagnostic) Anaphylaxis High 05/21/2017 Prednisone Psych complications 01/17/2017 agitation Sesame Seed (Diagnostic) Anaphylaxis High 05/21/2017 Soy Allergy Anaphylaxis High 01/16/2017 [place] Oil Edema airway High 01/10/2017 Wasp Venom Edema airway High 01/10/2017 documented as of this encounter (statuses as of 08/21/2019) Medications Medication Sig Dispensed Refills Start Date [...] SPRAY) 0.65 % nasal spray Administer 1 [place] into nostril as needed for Congestion. 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 Encounter for supervision of other normal pregna ncy 03/13/2011 09/11/2016 Overview: ICD-10 update of inactive term Acute bronchitis, complicated 02/25/2010 Asthma with severity to be determined 02/13/2017 Overview: ICD-10 update of inactive term documented as of this encounter (statuses as of 08/21/2019) Immunizations Name Administration Dates Next Due Diptheria/Tetanus [...] Progress Notes * Marilee Bobby LPN - 08/21/2019 12:20 PM EST Pre-injection Questionnaire Patient identified by [...] Documents on File Type Date Recorded Patient Clinical Researcher Expl 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
--- OUTSIDE RECORDS SUMMARY | 2023-04-16 16:21 | External Medical Summary | Summary of Care ---
Author Name Unknown Organization [place] [address] Care Team Providers Care Operational Assistant Name Role Phone Gab Smith Primary Care Provider [phone] Reason for Visit * Reason Comments Allergy Serum Allergy Injection Encounter Details Date Type Department Care Team Description 07/08/2019 Nurse Only Allergy/Immunology [facility] [address] [place], [place] [phone] [place], Nurse Allergy [facility] [address] [place] [address] [phone] Allergy Serum; Allergy Injection Allergies Active Allergy Reactions Severity Noted Date Comments [place] (Diagnostic) Anaphylaxis High 05/21/2017 Banana Edema airway High 01/10/2017 Cat Dander Anaphylaxis High 05/21/2017 Corylus Anaphylaxis High 05/21/2017 Latex Rash Low 01/10/2017 Lac Bovis Other (Please comment) 01/16/2017 Mouth tenderness. Peanut (Diagnostic) Anaphylaxis High 05/21/2017 Prednisone Psych complications 01/17/2017 agitation Sesame Seed (Diagnostic) Anaphylaxis High 05/21/2017 Soy Allergy Anaphylaxis High 01/16/2017 [place] Oil Edema airway High 01/10/2017 Wasp Venom Edema airway High 01/10/2017 documented as of this encounter (statuses as of 07/08/2019) Medications Medication Sig Dispensed Refills Start Date [...] SPRAY) 0.65 % nasal spray Administer 1 [place] into nostril as needed for Congestion. 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 Encounter for supervision of other normal pregna ncy 03/13/2011 09/11/2016 Overview: ICD-10 update of inactive term Acute bronchitis, complicated 02/25/2010 Asthma with severity to be determined 02/13/2017 Overview: ICD-10 update of inactive term documented as of this encounter (statuses as of 07/08/2019) Immunizations Name Administration Dates Next Due Diptheria/Tetanus [...] Travel End documented as of this encounter Nursing Notes * Marilee Bobby LPN - 07/08/2019 10:20 AM EST AIT serum(s) prepared per Dr Milton's prescription documented in this encounter Miscellaneous Notes * Addendum Note - Beverly Del Angel PA-C - 07/08/2019 12:18 PM EST Addended by: BEVERLY DEL ANGEL on: 07/08/2019 12:18 PM Modules accepted: Orders, SmartSet documented in this encounter Plan of Treatment Upcoming Encounters Date Type Specialty Care Team Description 07/17/2019 Office Visit Family Medicine Gab Smith, DO [address] [facility] [place] [address] [phone] Scheduled Orders Name Type Priority Associated Diagnoses Orde r Schedule [facility] (COMM PR[facility]) Procedures Routine Allergic rhinitis, unspecified seasonality, unspecified trigger Ordered: 07/08/2019 Health Maintenance Due Date Last Done Comments [...] Documents on File Type Date Recorded Patient Treatment Counselor Expl 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
--- OUTSIDE RECORDS SUMMARY | 2023-04-16 16:21 | External Medical Summary | Summary of Care ---
Author Name Unknown Organization [place] [address] Care Team Providers Care Nuclear Engineering Technician Name Role Phone Gab Smith Primary Care Provider [phone] Reason for Visit * Reason Comments Medication Question Encounter Details Date Type Department Care Team Description 10/26/2019 Telephone Allergy/Immunology [facility] [address] [place] [address] Valeriy Milton MD [address] [place], [place] [id number] Medication Question Allergies Active Allergy Reactions Severity Noted Date Comments [place] (Diagnostic) Anaphylaxis High 05/21/2017 Banana Edema airway High 01/10/2017 Cat Dander Anaphylaxis High 05/21/2017 Corylus Anaphylaxis High 05/21/2017 Latex Rash Low 01/10/2017 Lac Bovis Other (Please comment) 01/16/2017 Mouth tenderness. Peanut (Diagnostic) Anaphylaxis High 05/21/2017 Prednisone Psych complications 01/17/2017 agitation Sesame Seed (Diagnostic) Anaphylaxis High 05/21/2017 Soy Allergy Anaphylaxis High 01/16/2017 [place] Oil Edema airway High 01/10/2017 Wasp Venom [...] SPRAY) 0.65 % nasal spray Administer 1 [place] into nostril as needed for Congestion. 0 [...] or Wheezing. 54 g 1 10/26/2019 Active documented as of this encounter [...] encounter Miscellaneous Notes * Telephone Encounter - Emily Avila, [facility] - 10/26/2019 12:40 PM EDT Patient inquiring if she can take Pepcid OTC with her current flonase and claritin. Advised patientthat it was ok to take all 3, no interactions. Patient had been on Zantac and now switching to Pepcid due to recall of Zantac. Patient also worried about getting rebound indigestion after stopping Pepcid since plans on taking it for 2 weeks. Informed her that she should not get rebound indigestion if she did not get it while taking Zantac. Patient only takes H2 blockers as needed for flare ups. Thank you, Emily Avila PharmD Clinical Pharmacist Telepharmacy 10/26/2019, 12:44 PM * Telephone Encounter - Kelsey Cantor PHARM Tech - 10/26/2019 12:35 PM EDT Pt calling asking if she can take pepcid with flonase and claritin. Warm transfer to Emily Thank You, Kelsey Cantor [facility] [employer] [place] Telepharm[facility] 10/26/2019, 12:37 PM documented in this encounter Plan of [...] Documents on File Type Date Recorded Patient Stripper Color Expl 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
--- OUTSIDE RECORDS SUMMARY | 2023-04-16 16:21 | External Medical Summary | Summary of Care ---
Author Name Unknown Organization [place] [address] Care Team Providers Care Willow Machine Tender Name Role Phone Luis, Gab Primary Care Provider [phone] Reason for Visit * Reason Comments Allergy Injection Encounter Details Date Type Department Care Team Description 09/25/2019 Immunization/In jection Allergy/Immunology [facility] [address] [place], [place] [id number] Betty, Nurse Allergy [facility] [address] [place] [address] [phone] Allergic rhinitis, unspecified seasonality, unspecified trigger* Allergies Active Allergy Reactions Severity Noted Date Comments [place] (Diagnostic) Anaphylaxis High 05/21/2017 Banana Edema airway High 01/10/2017 Cat Dander Anaphylaxis High 05/21/2017 Corylus Anaphylaxis High 05/21/2017 Latex Rash Low 01/10/2017 Lac Bovis Other (Please comment) 01/16/2017 Mouth tenderness. Peanut (Diagnostic) Anaphylaxis High 05/21/2017 Prednisone Psych complications 01/17/2017 agitation Sesame Seed (Diagnostic) Anaphylaxis High 05/21/2017 Soy Allergy Anaphylaxis High 01/16/2017 [place] Oil Edema airway High 01/10/2017 Wasp Venom Edema airway High 01/10/2017 documented as of this encounter (statuses as of 09/25/2019) Medications Medication Sig Dispensed Refills Start Date [...] SPRAY) 0.65 % nasal spray Administer 1 [place] into nostril as needed for Congestion. 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 Yes allergy and swelling 5. Are you on any new medications [...] Documents on File Type Date Recorded Patient Mingle 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
--- OUTSIDE RECORDS SUMMARY | 2023-04-16 16:21 | External Medical Summary | Summary of Care ---
Author Name Unknown Organization [place] [address] Care Team Providers Care Telesales Team Leader Name Role Phone Luis, Gab Primary Care Provider [phone] Reason for Visit * Reason Comments Allergy Injection Encounter Details Date Type Department Care Team Description 08/14/2019 Immunization/In jection Allergy/Immunology [facility] [address] [place], [place] [id number] Betty, Nurse Allergy [facility] [address] [place] [address] [phone] Allergic rhinitis, unspecified seasonality, unspecified trigger* Allergies Active Allergy Reactions Severity Noted Date Comments [place] (Diagnostic) Anaphylaxis High 05/21/2017 Banana Edema airway High 01/10/2017 Cat Dander Anaphylaxis High 05/21/2017 Corylus Anaphylaxis High 05/21/2017 Latex Rash Low 01/10/2017 Lac Bovis Other (Please comment) 01/16/2017 Mouth tenderness. Peanut (Diagnostic) Anaphylaxis High 05/21/2017 Prednisone Psych complications 01/17/2017 agitation Sesame Seed (Diagnostic) Anaphylaxis High 05/21/2017 Soy Allergy Anaphylaxis High 01/16/2017 [place] Oil Edema airway High 01/10/2017 Wasp Venom Edema airway High 01/10/2017 documented as of this encounter (statuses as of 08/14/2019) Medications Medication Sig Dispensed Refills Start Date [...] SPRAY) 0.65 % nasal spray Administer 1 [place] into nostril as needed for Congestion. 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 Encounter for supervision of other normal pregna ncy 03/13/2011 09/11/2016 Overview: ICD-10 update of inactive term Acute bronchitis, complicated 02/25/2010 Asthma with severity to be determined 02/13/2017 Overview: ICD-10 update of inactive term documented as of this encounter (statuses as of 08/14/2019) Immunizations Name Administration Dates Next Due Diptheria/Tetanus [...] Progress Notes * Lorene Dhaliwal LPN - 08/14/2019 12:12 PM EST Pre-injection Questionnaire Patient identified by [...] Documents on File Type Date Recorded Patient 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
--- OUTSIDE RECORDS SUMMARY | 2023-04-16 16:21 | External Medical Summary | Summary of Care ---
Author Name Unknown Organization [place] [address] Care Team Providers Care Social Media Sr Strategy Manager Name Role Phone Gab Smith DO Primary Care Provider Reason for Visit * Reason Comments Medication Refill Encounter Details Date Type Department Care Team Description 10/26/2019 Refill Family Practice [facility] [address] [facility] [place] [address] Gab Smith DO [address] [place] [address] [phone] Allergies Active Allergy Reactions Severity Noted Date Comments [place] (Diagnostic) Anaphylaxis High 05/21/2017 Banana Edema airway High 01/10/2017 Cat Dander Anaphylaxis High 05/21/2017 Corylus Anaphylaxis High 05/21/2017 Latex Rash Low 01/10/2017 Lac Bovis Other (Please comment) 01/16/2017 Mouth tenderness. Peanut (Diagnostic) Anaphylaxis High 05/21/2017 Prednisone Psych complications 01/17/2017 agitation Sesame Seed (Diagnostic) Anaphylaxis High 05/21/2017 Soy Allergy Anaphylaxis High 01/16/2017 [place] Oil Edema airway High 01/10/2017 Wasp Venom [...] SPRAY) 0.65 % nasal spray Administer 1 [place] into nostril as needed for Congestion. 0 [...] needed (wheezing). 60 Vial 5 10/26/2019 Active albuterol-ipratr opium (DUONEB) 2.5-0.5 MG/3ML nebulizer solution Inhale 3 mL by mouth every 6 hours as needed (wheezing). 60 Vial 5 01/15/2017 10/26/2019 Discontinue d(Refill) documented as of this [...] Telephone Encounter - Gab Smith DO - 10/26/2019 1:09 PM EDT Signed Prescriptions: Disp Refills albuterol-ipratropium (DUONEB) 2.5-0.5 MG/*60 Vial5 Sig: Inhale 3 mL by mouth every 6 hours as needed (wheezing). Authorizing Provider: GAB SMITH * Telephone Encounter - Lev Mayorga PHARM Tech - 10/26/2019 12:18 PM EDT Pending Prescriptions: Disp Refills albuterol-ipratropium (DUONEB) 2.5-0.5 MG*60 Vial5 Sig: Inhale 3 mL by mouth every 6 hours as needed (wheezing). 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
--- OUTSIDE RECORDS SUMMARY | 2023-04-16 16:22 | External Medical Summary | Summary of Care ---
Author Name Unknown Organization [place] [address] Care Team Providers Care Sap Pi Developer Name Role Phone Gab Smith Primary Care Provider Reason for Visit * Reason Comments Allergy Return Encounter Details Date Type Department Care Team Description 05/07/2019 Office Visit Allergy/Immunology [facility] [address] [place] [address] Beverly Del Angel PA-C [address] [place], [place] [id number] Exposure to respiratory irritant, initial encounter*; Chronic seasonal allergic rhinitis due to pollen; Allergic rhinitis due to dust; Chronic seasonal allergic rhinitis due to fungal spores; Non-seasonal allergic rhinitis due to animal hair and dander; Mild intermittent extrinsic asthma without complication; Peanut allergy; Tree nut allergy Allergies Active Allergy Reactions Severity Noted Date Comments [place] (Diagnostic) Anaphylaxis High 05/21/2017 Banana Edema airway High 01/10/2017 Cat Dander Anaphylaxis High 05/21/2017 Corylus Anaphylaxis High 05/21/2017 Latex Rash Low 01/10/2017 Lac Bovis Other (Please comment) 01/16/2017 Mouth tenderness. Peanut (Diagnostic) Anaphylaxis High 05/21/2017 Prednisone Psych complications 01/17/2017 agitation Sesame Seed (Diagnostic) Anaphylaxis High 05/21/2017 Soy Allergy Anaphylaxis High 01/16/2017 [place] Oil Edema airway High 01/10/2017 Wasp Venom Edema airway High 01/10/2017 documented as of this encounter (statuses as of 05/08/2019) Medications Medication Sig Dispensed Refills Start Date [...] SPRAY) 0.65 % nasal spray Administer 1 [place] into nostril as needed for Congestion. 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 Anxiety 03/28/2017 Peanut allergy 03/28/2017 History of [...] as of this encounter (statuses as of 05/08/2019) Resolved Problems Problem Noted Date Resolved Date Encounter for supervision of other normal pregna ncy 03/13/2011 09/11/2016 Overview: ICD-10 update of inactive term Acute bronchitis, complicated 02/25/2010 Asthma with severity to be determined 02/13/2017 Overview: ICD-10 update of inactive term documented as of this encounter (statuses as of 05/08/2019) Immunizations Name Administration Dates Next Due Diptheria/Tetanus [...] Date Never Smoker Smokeless Tobacco: Never Used Tobacco Cessation:Counseling Given: No Alcohol Use Drinks/Week oz/Week Comments No Sex Assigned at Date Recorded Not on file Job Start Date Occupation Industry Not on file Not on file Not on file Travel History Travel Start Travel End documented as of this encounter Last Filed Vital Signs Vital Sign Reading Time Taken Comments Blood Pressure 100/64 05/07/2019 11:29 AM EDT Pulse 80 05/07/2019 11:29 AM EDT Temperature 36.8 C (98.3 F) 05/07/2019 11:29 AM E DT Respiratory Rate 20 05/07/2019 11:29 AM EDT Oxygen Saturation - - Inhaled Oxygen Concentration - - Weight 96.6 kg (213 lb) 05/07/2019 11:29 AM EDT Height - - Body Mass Index 35.45 04/15/2019 2:15 PM EDT documented in this encounter Patient Instructions * Patient Instructions* Beverly Del Angel PA-C - 05/07/2019 12:25 PM EDT Pollen Avoidance Measures: Keep windows, doors closed; use air conditioning; dry clothes in vented dryer, not outside on clothesline; shower/bathe and change clothes right after outdoor activity; avoid outdoor activity during high pollen counts; use HEPA type air filtration system. Animal Avoidance Measures: Remove pet from home; if unacceptable, keep pet out of the bedroom and off upholstered furniture; wash pet weekly; use HEPA-type air filtration in bedroom (close air ducts); remove feathered pillows/bedding. Mold Avoidance Measures: Indoor: Clean moldy surfaces with a diluted bleach solution or a commercial mannequin molder; fix waterleaks; reduce indoor humidity to <50% with dehumidifiers or air conditioning. Outdoor: Avoid uncut antonio, working with compost and soil, raking leaves and hay; keep windows anddoors closed; use air conditioning. Dust Mite Avoidance Measures: Essential: Encase mattress, pillow, box springs in allergen-impermeable covers; wash bedding weeklyin hot water(>130 degreesF); reduce indoor humidity to <50%; dust weekly and run HEPA type vacuum brass cleaner. Desirable: Remove carpets from bedroom and any laid on concrete; minimize upholstered furniture; use HEPA type air filtration in bedroom and family room (close air ducts); remove stuffed toys and collectibles from bedroom. documented in this encounter Progress Notes * Beverly Del Angel PA-C - 05/08/2019 7:32 AM EDT SUBJECTIVE: Regina abel is evaluated with her for an acute visit regarding a reaction. Yesterday they bought a new carpet and when they took at home and on ruled it she instantly felt like someone punched her in the neck. She had nasal congestion and her neck hurt and felt tight. Then her chest felt heavy. She felt like it got a little bit better but the feeling in the throat continued so she took Zantac and Benadryl. She also took her albuterol in Flonase. Last evening she started to feel little bit better but this morning she still feels this tight, sore feeling in her neck and her chest feels heavy. She is itchy around her neck. She is also little nauseated. She took Benadryl and Claritin this morning. She also took her albuterol. She does not have any diffuse itching or rashes. She denies any fever malaise to suggest an underlying upper respiratory infection. She is concerned about an allergic reaction. Asthma Control Test Summary, Results are Patient Reported The overall score is: 22 suggesting: Well Controlled asthma for the survey taken on: 05/07/2019 11:33:47 AM. Immunotherapy: Started: 08/04/18 - Benefit? YES Reactions? YES, large local, ? 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 albuterol HFA (VENTOLIN HFA) 108 (90 BASE) MCG/ACT inhaler Inhale 2 Puffs by mouth every 4 hours as needed for Cough, Shortness of Breath or Wheezing. 1 Inhaler 3 EPINEPHrine, anaphylaxis, (EPI-PEN) 0.3 MG/0.3ML SOAJ injection [...] day asneeded for Allergies. 10 mL 12 vitamins ( RX) 27-1 MG Tablet Take 1 Tab by mouth daily. loratadine ODT (CLARITIN REDITAB) 10 MG TBDP Take 1 tab daily for nasal allergy symptoms saline (OCEAN NASAL SPRAY) 0.65 % nasal spray Administer 1 Flushing into nostril as needed for Congestion. diphenhydrAMINE (BENADRYL) 25 MG Capsule Take 2 capsules at onset suspected allergic reaction; may repeat every 4-6 hrs. as needed. 40 Cap 1 PredniSONE (DELTASONE) 20 MG Tablet Take 2 tablets as a one time dose for significant mouth/thorat swelling 20 Tab 1 albuterol-ipratropium (DUONEB) 2.5-0.5 MG/3ML nebulizer solution Inhale 3 mL by mouth every 6 hours as needed (wheezing). 60 Vial 5 Cranberry 250 MG CAPS Take 1 Tab by mouth 2 times a day. Indications: taking 500mg a day Review of patient's allergies indicates: Allergen Reactions [place] (Diagnostic) Anaphylaxis Banana Edema airway Cat Dander Anaphylaxis [place] Tree Pollen [Corylus] Anaphylaxis Peanut (Diagnostic) Anaphylaxis Sesame Seed (Diagnostic) Anaphylaxis Soy Allergy Anaphylaxis [place] Oil Edema airway Wasp Venom Edema airway [...] floor and heart hardwood. 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 BP 100/64 | Pulse 80 | Temp 98.3 | Resp 20 | Wt 213 lbs (96.616kg) | BMI 35.45 kg/m | BSA 2.1 m| LMP 04/06/2019 | ? Unknown PHYSICAL EXAM: GENERAL: No acute distress. HEAD AND FACE: No sinus tenderness noted EYES: Conjunctiva- normal; EARS: TM's - clear NOSE:Pale mucosa; Mild Inferior turbinate edema; no nasal polyps or mucopus; Septum - normal OROPHARYNX: Mild erythema, cobblestoning; No lesions, exudates NECK: Supple; No thyroid enlargment or cervical adenopathy RESPIRATORY: Clear to A and P; No wheezes; Good air movement bilaterally. CARDIOVASCULAR: RRR; No gallops, rubs, clicks, or murmurs. GASTROINTESTINAL: Abdomen is soft and non-tender; BS - normal; No palpable masses or organomegaly LYMPHATIC: No significant adenopathy noted SKIN: No evidence atopic dermatitis; no urticaria or angioedema Normal skin quality OBJECTIVE DATA: Component Latest Ref Rng & [...] with essentially normal spirometry. ASSESSMENT: ICD-10-CM 1. Exposure to respiratory irritant, initial encounter T75.89XA 2. Chronic seasonal allergic rhinitis due to [...] and animal danders should be continued. She bought a new piece of carpet that was rolled up at the store. When she got at home and unrolledit, she immediately fell of some pain in her throat there was then also some tightness and heaviness in her chest. She took Benadryl, albuterol, Zantac and Flonase last night. She still felt the feeling in her throat today which she describes as a tightness in the soreness and so she took Claritin and Benadryl today. She is concerned about an allergic reaction. She did not have any diffuse itching or hives. She did not have any significant respiratory distress. I do not think that she had an anaphylactic reaction to the carpet. Most likely she had an irritant reaction to the fumes and small fibers on the carpet as they unrolled it. Her exam today is a completely normal in she is in no acute distress so I reassured her that her symptoms should resolve over the next day or 2 and I do not think that she needed any further antihistamines or even epinephrine at this time. She is under our care for allergic rhinitis and conjunctivitis and so she will continue loratadine 10 mg daily, if worsening or more persistent symptoms noted especially with the pollen seasons she will add in OTC flonase. For intermittent episodes of chest tightness, shortness of breath, wheezing, albuterol 2 puffs every 4 hours as needed can be utilized. If worsening asthma despite this, she would follow up with her physicians acutely. She been on immunotherapy now since July of 2018. Mild large local reactions have been noted which are often prevented by her Claritin. She may use some ice and additional Benadryl as needed for worsening itching or swelling. She continues avoidance of foods; almond, sunflower/sesame [...] for her food allergies. Follow Up: Return if symptoms worsen or fail to improve. Beverly Del Angel, Physician Auto Cleaner Allergy and Immunology [facility] (This note was completed using the dictation program Fluency Direct. As such, there may be misspellings, word substitutions, or other variations that should not change the essence of the clinical content of this encounter note.If there is need for further clarification, please direct questions to the provider listed above.) documented in this encounter Nursing Notes * Liz Cr RN - 05/07/2019 11:27 AM EDT The pt has been properly identified by confirmation of name and date of . Pt fine until unwrapping a new rug-strong odor-immediate reaction of nose running, Throat pain, chest tightness. documented in this encounter Plan of Treatment Upcoming Encounters Date Type Specialty Care Team Description 06/02/2019 Office Visit Allergy & Immunology Valeriy Milton MD [address] [place] [address] [phone] Health Maintenance Due Date Last Done Comments [...] as of this encounter Visit Diagnoses Diagnosis Exposure to respiratory irritant, initial encounter- Primary Chronic seasonal allergic rhinitis due [...] Documents on File Type Date Recorded Patient Spare Person Expl 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
--- OUTSIDE RECORDS SUMMARY | 2023-04-16 16:22 | External Medical Summary | Summary of Care ---
Author Name Unknown Organization [place] [address] Care Team Providers Care Teleradiologist Name Role Phone Gab Smith DO Primary Care Provider Reason for Visit * Reason Comments Allergy Injection * Evaluate & Treat - Unlimited Visits (Within 10 days (routine)) Status Reason Specialty Diagnoses / Procedures Referred By Contact Referred To Contact Authorized Specialty Services Required Allergy & Immunology Diagnoses Seasonal allergic rhinitis due to pollen Gab Smith DO [address] [place] [address] Encounter Details Date Type Department Care Team Description 04/02/2019 Immunization/In jection Allergy/Immunology [facility] [address] [place] [address] Betty, Nurse Allergy [address] [address] [phone] Allergic rhinitis, unspecified seasonality, unspecified trigger* Allergies Active Allergy Reactions Severity Noted Date Comments [place] (Diagnostic) Anaphylaxis High 05/21/2017 Banana Edema airway High 01/10/2017 Cat Dander Anaphylaxis High 05/21/2017 Corylus Anaphylaxis High 05/21/2017 Latex Rash Low 01/10/2017 Lac Bovis Other (Please comment) 01/16/2017 Mouth tenderness. Peanut (Diagnostic) Anaphylaxis High 05/21/2017 Prednisone Psych complications 01/17/2017 agitation Sesame Seed (Diagnostic) Anaphylaxis High 05/21/2017 Soy Allergy Anaphylaxis High 01/16/2017 [place] Oil Edema airway High 01/10/2017 Wasp Venom Edema airway High 01/10/2017 documented as of this encounter (statuses as of 04/02/2019) Medications Medication Sig Dispensed Refills Start Date [...] SPRAY) 0.65 % nasal spray Administer 1 [place] into nostril as needed for Congestion. 0 [...] or Wheezing. 1 Inhaler 3 01/27/2019 Active documented as of this encounter (statuses as of 04/02/2019) Active Problems Problem Noted Date Pollen-food allergy [...] as of this encounter (statuses as of 04/02/2019) Resolved Problems Problem Noted Date Resolved Date Encounter for supervision of other normal pregna ncy 03/13/2011 09/11/2016 Overview: ICD-10 update of inactive term Acute bronchitis, complicated 02/25/2010 Asthma with severity to be determined 02/13/2017 Overview: ICD-10 update of inactive term documented as of this encounter (statuses as of 04/02/2019) Immunizations Name Administration Dates Next Due Diptheria/Tetanus [...] Used Alcohol Use Drinks/Week oz/Week Comments No Comments Yes Sex Assigned at Date Recorded Not on file Job Start Date Occupation Industry Not on file Not on file Not on file Travel History Travel Start Travel End documented as of this encounter Progress Notes * Lorene Dhaliwal LPN - 04/02/2019 11:38 AM EDT Pre-injection Questionnaire Patient identified by [...] Encounters Date Type Specialty Care Team Description 04/15/2019 [facility] [address] [facility] [address] [phone] 06/02/2019 Office Visit Allergy & Immunology Valeriy Milton MD [address] [place] [address] [phone] Health Maintenance Due Date Last Done Comments PNEUMOCOCCAL 19-64 MEDIUM RI SK (1 of 1 - PPSV23) 2002 PAP SMEAR-EVERY 3 YRS,AGES 21-65 2004 DTaP,Tdap,and Td Vaccines (3 - Td) 01/30/2019 01/30/2009, 02/10/1998 Influenza Vaccine (FLU shot) (#1) 2019 MENINGOCOCCAL (MENACTRA) Aged Out No longer eligible based on patient's age to complete this topic documented as of this encounter Implants Not on filedocumented as of this encounter Visit Diagnoses Diagnosis Allergic rhinitis, unspecified seasonality, unspecified trigger- Primary documented in this encounter Advance Directives Documents on File Type Date Recorded Patient Paper Sales Manager Expl 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
--- OUTSIDE RECORDS SUMMARY | 2023-04-16 16:22 | External Medical Summary | Summary of Care ---
Author Name Unknown Organization [place] [address] Care Team Providers Care Optimization Consultant Name Role Phone Gab Smith DO Primary Care Provider Reason for Visit * Reason Comments Allergy Injection Encounter Details Date Type Department Care Team Description 06/16/2019 Immunization/In jection Allergy/Immunology [facility] [address] [place] [address] Betty, Nurse Allergy Scenery [address] [place] [address] [phone] Allergic rhinitis, unspecified seasonality, unspecified trigger* Allergies [...] High 05/21/2017 Soy Allergy Anaphylaxis High 01/16/2017 [place] Oil Edema airway High 01/10/2017 Wasp Venom Edema airway High 01/10/2017 documented as of this encounter (statuses as of 06/16/2019) Medications Medication Sig Dispensed Refills Start Date [...] SPRAY) 0.65 % nasal spray Administer 1 [place] into nostril as needed for Congestion. 0 [...] as of this encounter (statuses as of 06/16/2019) Active Problems Problem Noted Date Anxiety 03/28/2017 [...] as of this encounter (statuses as of 06/16/2019) Resolved Problems Problem Noted Date Resolved Date Reaction to allergy injection 05/19/2019 Pollen-food allergy syndrome 03/28/201708/2018 Encounter for supervision of other normal pregna ncy 03/13/2011 09/11/2016 Overview: ICD-10 update of inactive term Acute bronchitis, complicated 02/25/2010 Asthma with severity to be determined 02/13/2017 Overview: ICD-10 update of inactive term documented as of this encounter (statuses as of 06/16/2019) Immunizations Name Administration Dates Next Due Diptheria/Tetanus [...] Progress Notes * Lorene Dhaliwal LPN - 06/16/2019 12:38 PM EDT Pre-injection Questionnaire Patient identified by [...] Description 07/17/2019 Office Visit Family Medicine Gab Smith DO [address] [facility] [place] [address] [phone] Health Maintenance Due Date Last Done Comments [...] Documents on File Type Date Recorded Patient Continuity Writer Expl 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
--- OUTSIDE RECORDS SUMMARY | 2023-04-16 16:22 | External Medical Summary | Summary of Care ---
Author Name Unknown Organization [place] [address] Care Team Providers Care Carbon Plant Grinder Name Role Phone Gab Smith DO Primary Care Provider Reason for Visit * Reason Comments Advice Encounter Details Date Type Department Care Team Description 06/25/2019 Telephone Allergy/Immunology [facility] [address] [place] [address] Beverly Del Angel PA-C [address] [place] [address] [phone] Advice Allergies Active Allergy Reactions Severity Noted Date Comments [place] (Diagnostic) Anaphylaxis High 05/21/2017 Banana Edema airway High 01/10/2017 Cat Dander Anaphylaxis High 05/21/2017 Corylus Anaphylaxis High 05/21/2017 Latex Rash Low 01/10/2017 Lac Bovis Other (Please comment) 01/16/2017 Mouth tenderness. Peanut (Diagnostic) Anaphylaxis High 05/21/2017 Prednisone Psych complications 01/17/2017 agitation Sesame Seed (Diagnostic) Anaphylaxis High 05/21/2017 Soy Allergy Anaphylaxis High 01/16/2017 [place] Oil Edema airway High 01/10/2017 Wasp Venom Edema airway High 01/10/2017 documented as of this encounter (statuses as of 06/25/2019) Medications Medication Sig Dispensed Refills Start Date [...] SPRAY) 0.65 % nasal spray Administer 1 [place] into nostril as needed for Congestion. 0 [...] as of this encounter (statuses as of 06/25/2019) Active Problems Problem Noted Date Anxiety 03/28/2017 [...] as of this encounter (statuses as of 06/25/2019) Resolved Problems Problem Noted Date Resolved Date Reaction to allergy injection 05/19/2019 Pollen-food allergy syndrome 03/28/201708/2018 Encounter for supervision of other normal pregna ncy 03/13/2011 09/11/2016 Overview: ICD-10 update of inactive term Acute bronchitis, complicated 02/25/2010 Asthma with severity to be determined 02/13/2017 Overview: ICD-10 update of inactive term documented as of this encounter (statuses as of 06/25/2019) Immunizations Name Administration Dates Next Due Diptheria/Tetanus [...] Telephone Encounter - Lorene Dhaliwal LPN - 06/25/2019 11:05 AM EST This has been fully explained to patient who expressed understanding * Telephone Encounter - Beverly Del Angel PA-C - 06/25/2019 11:01 AM EST This doesn't not sound like an immediate life threatening reaction. It sounds like a mild delayed large local. Other symptoms like itchy eyes could have been from natural exposure to allergens or irritants. Continue ice and Benadryl as directed. * Telephone Encounter - Lorene Dhaliwal LPN - 06/25/2019 10:50 AM EST Pt states her allergy shot ( she received Tues) started hurting in the evening took benadryl, took allergy med the next morning but arm hurt, has a red bump, was painful last night, eyes are itchy. Pt is having allergy symptoms. Pt states no wheezing but feels a little heaviness in her chest, yesterday her mouth was thick with mucus didn't eat much yesterday. Pt states today the bump at injectionsite can't really see the bump like she could earlier in the week. I advised to use ice pack, continue using Benadryl every 4-6 hours as needed and will see if there are further recommendations from Beverly. documented in this encounter Plan of Treatment Upcoming Encounters Date Type Specialty Care Team Description 07/17/2019 Office Visit Family Medicine Gab Smith, [address] [facility] [place] [address] [phone] Health Maintenance Due Date Last Done Comments [...] Documents on File Type Date Recorded Patient Detailer Pharmaceuticals Expl 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
--- OUTSIDE RECORDS SUMMARY | 2023-04-16 16:22 | External Medical Summary | Summary of Care ---
Author Name Unknown Organization [place] [address] Care Team Providers Care Ground Surveillance Systems Operator Name Role Phone Gab Cuevas DO Primary Care Provider [phone] Reason for Visit * Reason Comments Follow Up Encounter Details Date Type Department Care Team Description 04/15/2019 [facility] [address] [facility] [address] [phone] Gastroesophageal reflux disease without esophagitis*; Allergic rhinitis, unspecified seasonality, unspecified trigger; Intermittent asthma with reliever use up to twice per week without complication Allergies Active Allergy Reactions Severity Noted Date Comments [employer] (Diagnostic) Anaphylaxis High 05/21/2017 Banana Edema airway High 01/10/2017 Cat Dander Anaphylaxis High 05/21/2017 Corylus Anaphylaxis High 05/21/2017 Latex Rash Low 01/10/2017 Lac Bovis Other (Please comment) 01/16/2017 Mouth tenderness. Peanut (Diagnostic) Anaphylaxis High 05/21/2017 Prednisone Psych complications 01/17/2017 agitation Sesame Seed (Diagnostic) Anaphylaxis High 05/21/2017 Soy Allergy Anaphylaxis High 01/16/2017 [place] Oil Edema airway High 01/10/2017 Wasp Venom Edema airway High 01/10/2017 documented as of this encounter (statuses as of 05/02/2019) Medications Medication Sig Dispensed Refills Start Date [...] as of this encounter (statuses as of 05/02/2019) Active Problems Problem Noted Date Pollen-food allergy [...] as of this encounter (statuses as of 05/02/2019) Resolved Problems Problem Noted Date Resolved Date Encounter for supervision of other normal pregna ncy 03/13/2011 09/11/2016 Overview: ICD-10 update of inactive term Acute bronchitis, complicated 02/25/2010 Asthma with severity to be determined 02/13/2017 Overview: ICD-10 update of inactive term documented as of this encounter (statuses as of 05/02/2019) Immunizations Name Administration Dates Next Due Diptheria/Tetanus [...] Sign Reading Time Taken Comments Blood Pressure 104/64 04/15/2019 2:15 PM EDT Pulse 68 04/15/2019 2:15 PM EDT Temperature 36.8 C (98.2 F) 04/15/2019 2:15 PM ED T Respiratory Rate 16 04/15/2019 2:15 PM EDT Oxygen Saturation - - Inhaled Oxygen Concentration - - Weight 98.7 kg (217 lb 8 oz) 04/15/2019 2:15 PM EDT Height 165.1 cm (5' 5") 04/15/2019 2:15 PM EDT Body Mass Index 36.19 04/15/2019 2:15 PM EDT documented in this encounter Progress Notes * Gab Cuevas - 04/20/2019 3:36 PM EDT Chief Complaint Patient presents with Follow Up HPI: Patient is a 33-year-old female here for follow-up from emergency room evaluation treatment on03/13/2019 for complaint of difficulty swallowing her pill which became lodged in her throat. Patient eventually passed the pill on her own. Patient advised to follow a soft diet and follow with blindstitch hemmer for EGD study Patient denies nausea vomiting diarrhea constipation melena or hematochezia. Patient has a history of seasonal allergies and asthma. Patient complains of chronic nasal congestion and postnasal drip. Patient denies earache or sore throat. Patient complains of intermittent shortness of breath and wheezing stable on current medication therapy. Patient uses rescue inhaler seldomly. Patient denies cough or sputum. Patient denies chest pain palpitations or edema. Review of systems otherwise negative Past Medical History: Medication list, PMH, Family history, social history, and problem list have been reviewed and updated in the Electronic Medical Record as noted below. 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 diphenhydrAMINE [...] a day. Indications: taking 500mg a day Past Medical History: Diagnosis Date Asthma, severity to be determined Eczema 12/01/1999 Esophageal reflux Nephrolithiasis 11/04/2013 Calcium apatite stones, trigger by UTI/infection Past Surgical History: Procedure Laterality Date APPENDECTOMY W/OTHER PROCEDURE DENTAL SURGERY PROCEDURE NEC REMOVE GALLBLADDER 08/24/2016 Review of patient's allergies indicates: Allergen Reactions [employer] (Diagnostic) Anaphylaxis Banana Edema airway Cat Dander Anaphylaxis [place] Tree Pollen [Corylus] Anaphylaxis Peanut (Diagnostic) Anaphylaxis Sesame Seed (Diagnostic) Anaphylaxis Soy Allergy Anaphylaxis [place] Oil Edema airway Wasp Venom Edema airway Milk [Lac Bovis] Other (Please comment) Mouth tenderness. Prednisone Psych complications agitation Latex Rash Family History Problem Relation Age of Onset Heart Disorder Father Endocrine Disorder Father high cholesterol Heart Disorder Grandmother (Paternal) Heart Disorder Grandfather (Paternal) Allergies Son tree nut allergy Allergies Daughter food allergy - strawberry Family Status Relation Status Fa (Not Specified) PGMA (Not Specified) PGFA (Not Specified) Son (Not Specified) Josue (Not Specified) Social History Tobacco Use Smoking status: Never Smoker Smokeless tobacco: Never Used Substance Use Topics Alcohol use: No Review of Systems: No nausea, vomiting or diarrhea. No chest pain or shortness of breath, No fatigue. No fevers, chillor night sweats. All other ROS examined in detail and are negative except as documented in HPI. All other systems reviewed and are negative. Objective: BP 104/64 | Pulse 68 | Temp (Src) 98.2 (Tympanic) | Resp 16 | Ht 5' 5" (1.651m) | Wt 217 lbs 8 oz (98.657kg) | BMI 36.19 kg/m | BSA 2.13 m Physical Exam: General: alert, healthy and no distress Head: Normocephalic, No masses, lesions, tenderness or abnormalities Eye Exam: PERRLA, EOMI, Conjunctiva are pink and non-injected, fundi benign, sclera clear Ears: External ears normal, Canals clear, TM's Normal Nose: no mucosal erythema, no mucosal edema, no purulent discharge Oropharynx: no exudate, no erythema, lips, buccal mucosa, and tongue normal and dentition normal Neck: supple, no adenopathy, thyroid normal size, non-tender, without nodularity, trachea midline Lymph: no palpable lymphadenopathy Heart: regular rate & rhythm, no murmurs and no gallops Lungs: chest symmetric with normal AP diameter, no chest deformities noted, no chest wall tenderness, lungs clear to auscultation Pulses: carotid=2/4 w/o bruits Abdomen: abdomen soft, non-tender, no masses, no hepatosplenomegaly, no rebound or guarding Back: back symmetric, no curvature, no costovertebral angle tenderness, range of motion is normal Extremities: no edema, no clubbing, no cyanosis Neuro Exam: alert & oriented x 3 with fluent speech, no focal motor/sensory deficits, gait normal, reflexes normal and symmetric Skin: skin color, texture, turgor are normal, no rashes or significant lesions ASSESSMENT/PLAN: Gastroesophageal reflux disease without esophagitis (Primary) Continue bland soft diet Follow with blindstitch hemmer for EGD study Allergic rhinitis, unspecified seasonality, unspecified trigger Flonase nasal spray 2 sprays each nares once daily Intermittent asthma with reliever use up to twice per week without complication Albuterol HFA 2 puffs q.4-6 hours p.r.n. Patient counseled regarding asthma action plan Follow Up: Return in about 3 months (around 07/16/2019). Gab Cuevas DO 04/20/19 documented in this encounter Nursing Notes * Connie Lujan LPN - 04/15/2019 2:13 PM EDT The patient has been properly identified by confirmation of name and date of . Chief Complaint Patient presents with Follow Up documented in this encounter Plan of Treatment Upcoming Encounters Date Type Specialty Care Team Description 06/02/2019 Office Visit Allergy & Immunology Valeriy Milton MD [address] [place], [place] [address] [address] [phone] 07/15/2019 Office Visit Family Medicine Gab Cuevas DO 132 [facility] [place] [address] [phone] Health Maintenance Due Date Last Done Comments [...] as of this encounter Visit Diagnoses Diagnosis Gastroesophageal reflux disease without esophagitis- Primary Esophageal reflux Allergic rhinitis, unspecified seasonality, unspecified trigger Intermittent asthma with reliever use up to twice per week without complication documented in this encounter Advance Directives Documents on File Type Date Recorded Patient Buttoner Expl 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
--- OUTSIDE RECORDS SUMMARY | 2023-04-16 16:22 | External Medical Summary | Summary of Care ---
Author Name Unknown Organization [place] [address] Care Team Providers Care Automatic Thread Winder Name Role Phone Gab Smith DO Primary Care Provider [phone] Reason for Visit * Reason Comments Advice Encounter Details Date Type Department Care Team Description 05/19/2019 Telephone Allergy/Immunology [facility] [address] [place] [address] Valeriy Milton MD [address] [place] [address] [phone] Advice Allergies Active Allergy Reactions Severity Noted Date Comments [place] (Diagnostic) Anaphylaxis High 05/21/2017 Banana Edema airway High 01/10/2017 Cat Dander Anaphylaxis High 05/21/2017 Corylus Anaphylaxis High 05/21/2017 Latex Rash Low 01/10/2017 Lac Bovis Other (Please comment) 01/16/2017 Mouth tenderness. Peanut (Diagnostic) Anaphylaxis High 05/21/2017 Prednisone Psych complications 01/17/2017 agitation Sesame Seed (Diagnostic) Anaphylaxis High 05/21/2017 Soy Allergy Anaphylaxis High 01/16/2017 [place] Oil Edema airway High 01/10/2017 Wasp Venom Edema airway High 01/10/2017 documented as of this encounter (statuses as of 05/19/2019) Medications Medication Sig Dispensed Refills Start Date [...] SPRAY) 0.65 % nasal spray Administer 1 [place] into nostril as needed for Congestion. 0 [...] as of this encounter (statuses as of 05/19/2019) Active Problems Problem Noted Date Pollen-food allergy [...] as of this encounter (statuses as of 05/19/2019) Resolved Problems Problem Noted Date Resolved Date Encounter for supervision of other normal pregna ncy 03/13/2011 09/11/2016 Overview: ICD-10 update of inactive term Acute bronchitis, complicated 02/25/2010 Asthma with severity to be determined 02/13/2017 Overview: ICD-10 update of inactive term documented as of this encounter (statuses as of 05/19/2019) Immunizations Name Administration Dates Next Due Diptheria/Tetanus [...] encounter Miscellaneous Notes * Telephone Encounter - Bevrely Del Angel PA-C - 05/19/2019 12:14 PM EDT Pt showed up here now to be seen. * Telephone Encounter - Marilee Bobby LPN - 05/19/2019 10:34 AM EDT Incoming call from call center about patients reaction to allergy shot. [place] Patient in office for allergy shot yesterday received 0.30ml out of yellow bottles. Pt stating she has a reaction in her RT arm. RT arm 2 "huge" welts on the size of palm including fingers. Stating it is on the outside of arm and on the inside of arm. Describes a hard time bending arm, and was up all night.Put benadryl cream on arms and put the ice pack on.Very lethargic. LT arm is very swollen same sizewelts only on the top of arm though, does not wrap around to inside of arm. Pain in arm. She took her Claritin, did not take benadryl. Instructed pt to take benadryl and will forward message to providers for further assistance and advice. Reaction started this morning when waking up she things, woke up and slept with a long sleeve nightgown on and found this am. documented in this encounter Plan of Treatment Upcoming Encounters Date Type Specialty Care Team Description 05/19/2019 Office Visit Allergy & Immunology Beverly Del Angel PA-C [address] [facility] [place] [address] [phone] Arrived 06/02/2019 Office Visit Allergy & Immunology Valeriy Milton MD [address] [facility] [place] [address] [phone] 07/17/2019 Office Visit Family Medicine Gab Smith, 132 [facility] [place] [address] [phone] Health Maintenance Due Date Last Done Comments [...] Documents on File Type Date Recorded Patient Gem Technician Expl 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
--- OUTSIDE RECORDS SUMMARY | 2023-04-16 16:22 | External Medical Summary | Summary of Care ---
Author Name Unknown Organization [place] [address] Care Team Providers Care Chemicals Fermentation Operator Name Role Phone Gab Smith DO Primary Care Provider Reason for Visit * Reason Comments Allergy Injection Encounter Details Date Type Department Care Team Description 04/09/2019 Immunization/In jection Allergy/Immunology [facility] [address] [place] [address] Park, Nurse Allergy Scenery [address] [place] [address] [phone] Allergic rhinitis, unspecified seasonality, unspecified trigger* Allergies Active Allergy Reactions Severity Noted Date Comments [place] (Diagnostic) Anaphylaxis High 05/21/2017 Banana Edema airway High 01/10/2017 Cat Dander Anaphylaxis High 05/21/2017 Corylus Anaphylaxis High 05/21/2017 Latex Rash Low 01/10/2017 Lac Bovis Other (Please comment) 01/16/2017 Mouth tenderness. Peanut (Diagnostic) Anaphylaxis High 05/21/2017 Prednisone Psych complications 01/17/2017 agitation Sesame Seed (Diagnostic) Anaphylaxis High 05/21/2017 Soy Allergy Anaphylaxis High 01/16/2017 [place] Oil Edema airway High 01/10/2017 Wasp Venom Edema airway High 01/10/2017 documented as of this encounter (statuses as of 04/09/2019) Medications Medication Sig Dispensed Refills Start Date [...] SPRAY) 0.65 % nasal spray Administer 1 [place] into nostril as needed for Congestion. 0 [...] as of this encounter (statuses as of 04/09/2019) Active Problems Problem Noted Date Pollen-food allergy [...] as of this encounter (statuses as of 04/09/2019) Resolved Problems Problem Noted Date Resolved Date Encounter for supervision of other normal pregna ncy 03/13/2011 09/11/2016 Overview: ICD-10 update of inactive term Acute bronchitis, complicated 02/25/2010 Asthma with severity to be determined 02/13/2017 Overview: ICD-10 update of inactive term documented as of this encounter (statuses as of 04/09/2019) Immunizations Name Administration Dates Next Due Diptheria/Tetanus [...] Progress Notes * Liz Cr RN - 04/09/2019 3:18 PM EDT Pre-injection Questionnaire Patient identified by [...] Visit Family Medicine Gab Smith DO 132 [facility] [place] [address] [phone] 06/02/2019 Office Visit Allergy & Immunology [facility] [address] [phone] Health Maintenance Due Date Last Done Comments [...] Documents on File Type Date Recorded Patient Cook Candy Expl 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
--- OUTSIDE RECORDS SUMMARY | 2023-04-16 16:22 | External Medical Summary | Summary of Care ---
Author Name Unknown Organization [place] [address] Care Team Providers Care Tire Repairer Name Role Phone Gab Smith DO Primary Care Provider [phone] Reason for Visit * Reason Comments Allergy Injection Encounter Details Date Type Department Care Team Description 03/19/2019 Immunization/In jection Allergy/Immunology [facility] [address] [place] [address] Park, Nurse Allergy Scenery [address] [place] [address] [phone] Allergic rhinitis, unspecified seasonality, unspecified trigger* Allergies Active Allergy Reactions Severity Noted Date Comments [place] (Diagnostic) Anaphylaxis High 05/21/2017 Banana Edema airway High 01/10/2017 Cat Dander Anaphylaxis High 05/21/2017 Corylus Anaphylaxis High 05/21/2017 Latex Rash Low 01/10/2017 Lac Bovis Other (Please comment) 01/16/2017 Mouth tenderness. Peanut (Diagnostic) Anaphylaxis High 05/21/2017 Prednisone Psych complications 01/17/2017 agitation Sesame Seed (Diagnostic) Anaphylaxis High 05/21/2017 Soy Allergy Anaphylaxis High 01/16/2017 [place] Oil Edema airway High 01/10/2017 Wasp Venom Edema airway High 01/10/2017 documented as of this encounter (statuses as of 03/19/2019) Medications Medication Sig Dispensed Refills Start Date [...] SPRAY) 0.65 % nasal spray Administer 1 [place] into nostril as needed for Congestion. 0 [...] as of this encounter (statuses as of 03/19/2019) Active Problems Problem Noted Date Pollen-food allergy [...] as of this encounter (statuses as of 03/19/2019) Resolved Problems Problem Noted Date Resolved Date Encounter for supervision of other normal pregna ncy 03/13/2011 09/11/2016 Overview: ICD-10 update of inactive term Acute bronchitis, complicated 02/25/2010 Asthma with severity to be determined 02/13/2017 Overview: ICD-10 update of inactive term documented as of this encounter (statuses as of 03/19/2019) Immunizations Name Administration Dates Next Due Diptheria/Tetanus [...] Progress Notes * Marilee Bobby LPN - 03/19/2019 3:30 PM EDT Pre-injection Questionnaire Patient identified by [...] Visit Family Medicine Gab Smith DO 132 [facility] [place] [address] 06/02/2019 Office Visit Allergy & Immunology Valeriy Milton MD [address] [facility] [address] [phone] Health Maintenance Due Date Last Done Comments [...] Documents on File Type Date Recorded Patient Virtual Reality Specialist Expl 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
--- OUTSIDE RECORDS SUMMARY | 2023-04-16 16:22 | External Medical Summary | Summary of Care ---
Author Name Unknown Organization [place] [address] Care Team Providers Care Chocolate Coater Name Role Phone Gab Smith DO Primary Care Provider [phone] Reason for Visit * Reason Comments Allergy Return Reaction to shots. Encounter Details Date Type Department Care Team Description 05/19/2019 Office Visit Allergy/Immunology [facility] [address] [place] [address] Beverly Del Angel PA-C [address] [place] [address] [phone] Allergy injection reaction, initial encounter* Allergies Active Allergy Reactions Severity Noted Date Comments [place] (Diagnostic) Anaphylaxis High 05/21/2017 Banana Edema airway High 01/10/2017 Cat Dander Anaphylaxis High 05/21/2017 Corylus Anaphylaxis High 05/21/2017 Latex Rash Low 01/10/2017 Lac Bovis Other (Please comment) 01/16/2017 Mouth tenderness. Peanut (Diagnostic) Anaphylaxis High 05/21/2017 Prednisone Psych complications 01/17/2017 agitation Sesame Seed (Diagnostic) Anaphylaxis High 05/21/2017 Soy Allergy Anaphylaxis High 01/16/2017 Merrick Oil Edema airway High 01/10/2017 Wasp Venom Edema airway High 01/10/2017 documented as of this encounter (statuses as of 05/21/2019) Medications Medication Sig Dispensed Refills Start Date [...] SPRAY) 0.65 % nasal spray Administer 1 Welcome into nostril as needed for Congestion. 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 Encounter for supervision of other normal pregna ncy 03/13/2011 09/11/2016 Overview: ICD-10 update of inactive term Acute bronchitis, complicated 02/25/2010 Asthma with severity to be determined 02/13/2017 Overview: ICD-10 update of inactive term documented as of this encounter (statuses as of 05/21/2019) Immunizations Name Administration Dates Next Due Diptheria/Tetanus [...] Sign Reading Time Taken Comments Blood Pressure 120/70 05/19/2019 12:21 PM EDT Pulse 80 05/19/2019 12:21 PM EDT Temperature 36.8 C (98.2 F) 05/19/2019 12:21 PM E DT Respiratory Rate 20 05/19/2019 12:21 PM EDT Oxygen Saturation - - Inhaled Oxygen Concentration - - Weight 96.6 kg (213 lb) 05/19/2019 12:21 PM EDT Height 165.1 cm (5' 5") 05/19/2019 12:21 PM EDT Body Mass Index 35.45 05/19/2019 12:21 PM EDT documented in this encounter Progress Notes * Beverly Del Angel PA-C - 05/21/2019 9:05 AM EDT SUBJECTIVE: Regina abel is evaluated with her for an acute visit regarding a reaction. She came in for injection yesterday around 6:00 p.m.. She was feeling well and had taken her antihistamines as usual. About an hour later her face was hot her hands felt a little bit itchy. She used Benadryl cream. She did not notice anything then until she went to bed. She felt like her stomach was upset a little bit she noticed that she was having redness and swelling at the injection site so she used an ice pack. She woke up 1 through the night with her arms hurting and itching. Then when she got up this morning her arm was really hurting and itching. She took Benadryl about an hour ago. She did take her usual Claritin this morning. Again she was feeling well when she received her injection. She did not have any symptoms during her 30 minutes observation time. She did not have any wheezing, chest tightness or hives. Asthma Control Test Summary, Results are Patient Reported The overall score is: 22 suggesting: Well Controlled asthma for the survey taken on: 05/07/2019 11:33:47 AM. Immunotherapy: Started: 08/04/18 - Benefit? YES Reactions? YES, large local 05/18/2019 [...] 2 Puffs by mouth every 4 hours asneeded for Cough, Shortness of Breath or Wheezing. 1 Inhaler 3 EPINEPHrine, anaphylaxis, (EPI-PEN) 0.3 MG/0.3ML SOAJ injection For a severe reaction: Place orangeend against the outer thigh, press firmly, hold in place for 10 seconds and go to the Emergency room. 2 Device 4 fluticasone (FLONASE) 50 MCG/ACT nasal spray Administer 2 Sprays into each nostril daily. Use as needed for worsening or persistent nasal allergy symptoms 1 Inhaler 5 cromolyn sodium (CROLOM) 4 % ophthalmic solution Instill 1 Drop into both eyes 4 times a day as needed for Allergies. 10 mL 12 vitamins ( RX) 27-1 MG Tablet Take 1 Tab by mouth daily. loratadine ODT (CLARITIN REDITAB) 10 MG TBDP Take 1 tab daily for nasal allergy symptoms saline (OCEAN NASAL SPRAY) 0.65 % nasal spray Administer 1 Welcome into nostril as needed for Congestion. diphenhydrAMINE (BENADRYL) 25 MG Capsule Take 2 capsules at onset suspected allergic reaction; may repeat every 4-6 hrs. as needed. 40 Cap 1 PredniSONE (DELTASONE) 20 MG Tablet Take 2 tablets as a one time dose for significant mouth/thorat swelling 20 Tab 1 albuterol-ipratropium (DUONEB) 2.5-0.5 MG/3ML nebulizer solution Inhale 3 mL by mouth every 6 hoursas needed (wheezing). 60 Vial 5 Cranberry 250 MG CAPS Take 1 Tab by mouth 2 times a day. Indications: taking 500mg a day Review of patient's allergies indicates: Allergen Reactions [place]inson (Diagnostic) Anaphylaxis Banana Edema airway Cat Dander Anaphylaxis [place] Tree Pollen [Corylus] Anaphylaxis Peanut (Diagnostic) Anaphylaxis Sesame Seed (Diagnostic) Anaphylaxis Soy Allergy Anaphylaxis Merrick Oil Edema airway Wasp Venom Edema airway [...] floor and heart hardwood. 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 BP 120/70 | Pulse 80 | Temp (Src) 98.2 (Tympanic) | Resp 20 | Ht 5' 5" (1.651m) | Wt 213 lbs (96.616kg) | BMI 35.45 kg/m | BSA 2.1 m PHYSICAL EXAM: GENERAL: No acute distress. HEAD [...] no urticaria or angioedema Normal skin quality Fading erythema on both upper arms on the posterior 2/3 from the elbow to bottom of deltoid. OBJECTIVE DATA: Component Latest Ref Rng & [...] with essentially normal spirometry. ASSESSMENT: ICD-10-CM 1. Allergy injection reaction, initial encounter T80.89XA T45.0X5A PLAN: Avoidance measures regarding pollens, molds, dust mites and animal danders should be continued. She is building up on immunotherapy and had a large local reaction yesterday. It is already responding to Benadryl and she should continue Benadryl every 4 hours as needed over the next day or 2. Because of this significant large local reaction we will reduce her dose to 0.15 mL of yellow and then build her up by 0.05 mL. She should continue to report any and all reactions to the nurses. She will continue Claritin daily for her nasal symptoms and also to prevent large local reactions with her immunotherapy. She will add in Flonase as needed for her nasal symptoms. For intermittent episodes of chest tightness, shortness [...] that she uses for her food allergies. Follow-up as scheduled or sooner as needed for worsening symptoms. Beverly Del Angel, Physician New Patient Escort All[facility] (This note was completed using the dictation program Fluency Direct. As such, there may be misspellings, word substitutions, or other variations that should not change the essence of the clinical content of this encounter note.If there is need for further clarification, please direct questions to the provider listed above.) documented in this encounter Nursing Notes * Marilee Bobby LPN - 05/19/2019 12:21 PM EDT The pt has been properly identified by confirmation of name and date of . Regina Duncan is a 33 year old female who presents today with Chief Complaint Patient presents with Allergy Return Reaction to shots. Did taken benadryl since spoke on phone, pain on area. documented in this encounter Plan of Treatment Upcoming Encounters Date Type Specialty Care Team Description 06/02/2019 Office Visit Allergy & Immunology Valeriy Milton MD [address] [place] [address], [place] [address] [phone] 07/17/2019 Office Visit Family Medicine Gab Smith, DO [address] [facility] [place] [address] [phone] Health Maintenance Due Date Last Done Comments [...] as of this encounter Visit Diagnoses Diagnosis Allergy injection reaction, initial encounter- Primary documented in this encounter Advance Directives Documents on File Type Date Recorded 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
--- OUTSIDE RECORDS SUMMARY | 2023-04-16 16:22 | External Medical Summary | Summary of Care ---
Author Name Unknown Organization [place] [address] Care Team Providers Care Psychiatric Lpn Name Role Phone Gab Smith DO Primary Care Provider Reason for Visit * Reason Comments Allergy Injection Encounter Details Date Type Department Care Team Description 05/01/2019 Immunization/In jection Allergy/Immunology [facility] [address] [place] [address] [place], Nurse Allergy Scenery [address] [place] [address] [phone] Allergic rhinitis, unspecified seasonality, unspecified trigger* Allergies Active Allergy Reactions Severity Noted Date Comments [place] (Diagnostic) Anaphylaxis High 05/21/2017 Banana Edema airway High 01/10/2017 Cat Dander Anaphylaxis High 05/21/2017 Corylus Anaphylaxis High 05/21/2017 Latex Rash Low 01/10/2017 Lac Bovis Other (Please comment) 01/16/2017 Mouth tenderness. Peanut (Diagnostic) Anaphylaxis High 05/21/2017 Prednisone Psych complications 01/17/2017 agitation Sesame Seed (Diagnostic) Anaphylaxis High 05/21/2017 Soy Allergy Anaphylaxis High 01/16/2017 [place] Oil Edema airway High 01/10/2017 Wasp Venom Edema airway High 01/10/2017 documented as of this encounter (statuses as of 05/01/2019) Medications Medication Sig Dispensed Refills Start Date [...] SPRAY) 0.65 % nasal spray Administer 1 [place] into nostril as needed for Congestion. 0 [...] as of this encounter (statuses as of 05/01/2019) Active Problems Problem Noted Date Pollen-food allergy [...] as of this encounter (statuses as of 05/01/2019) Resolved Problems Problem Noted Date Resolved Date Encounter for supervision of other normal pregna ncy 03/13/2011 09/11/2016 Overview: ICD-10 update of inactive term Acute bronchitis, complicated 02/25/2010 Asthma with severity to be determined 02/13/2017 Overview: ICD-10 update of inactive term documented as of this encounter (statuses as of 05/01/2019) Immunizations Name Administration Dates Next Due Diptheria/Tetanus [...] Progress Notes * Marilee Bobby LPN - 05/01/2019 12:19 PM EDT Pre-injection Questionnaire Patient identified by [...] Visit Allergy & Immunology Valeriy Milton MD [address] [place] [address], [place] [address] [phone] 07/15/2019 Office Visit [facility] [address] [facility] [address] [phone] Health Maintenance Due Date Last Done Comments [...] Documents on File Type Date Recorded 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
--- OUTSIDE RECORDS SUMMARY | 2023-04-16 16:22 | External Medical Summary | Summary of Care ---
Author Name Unknown Organization [place] [address] Care Team Providers Care Dive Master Name Role Phone Gab Smith Primary Care Provider [phone] Reason for Visit * Reason Comments Allergy Serum Encounter Details Date Type Department Care Team Description 07/08/2019 Nurse Only Allergy/Immunology [facility] [address] [place], [place] [id number] [place] Nurse All[facility] Sc[facility]ery [address] [place] [address] [phone] Allergy Serum Allergies Active Allergy Reactions Severity Noted Date Comments [place] (Diagnostic) Anaphylaxis High 05/21/2017 Banana Edema airway High 01/10/2017 Cat Dander Anaphylaxis High 05/21/2017 Corylus Anaphylaxis High 05/21/2017 Latex Rash Low 01/10/2017 Lac Bovis Other (Please comment) 01/16/2017 Mouth tenderness. Peanut (Diagnostic) Anaphylaxis High 05/21/2017 Prednisone Psych complications 01/17/2017 agitation Sesame Seed (Diagnostic) Anaphylaxis High 05/21/2017 Soy Allergy Anaphylaxis High 01/16/2017 [place] Oil Edema airway High 01/10/2017 Wasp Venom [...] SPRAY) 0.65 % nasal spray Administer 1 [place] into nostril as needed for Congestion. 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
--- OUTSIDE RECORDS SUMMARY | 2023-04-16 16:22 | External Medical Summary | Summary of Care ---
Author Name Unknown Organization [place] [address] Care Team Providers Care Health Care Coach Name Role Phone Gab Smith DO Primary Care Provider Reason for Visit * Reason Comments Allergy Injection Encounter Details Date Type Department Care Team Description 06/23/2019 Immunization/In jection Allergy/Immunology [facility] [address] [place] [address] [place], Nurse Allergy Scenery [address] [place] [address] [phone] Allergic rhinitis, unspecified seasonality, unspecified trigger* Allergies Active Allergy Reactions Severity Noted Date Comments [place] (Diagnostic) Anaphylaxis High 05/21/2017 Banana Edema airway High 01/10/2017 Cat Dander Anaphylaxis High 05/21/2017 Corylus Anaphylaxis High 05/21/2017 Latex Rash Low 01/10/2017 Lac Bovis Other (Please comment) 01/16/2017 Mouth tenderness. Peanut (Diagnostic) Anaphylaxis High 05/21/2017 Prednisone Psych complications 01/17/2017 agitation Sesame Seed (Diagnostic) Anaphylaxis High 05/21/2017 Soy Allergy Anaphylaxis High 01/16/2017 [place] Oil Edema airway High 01/10/2017 Wasp Venom Edema airway High 01/10/2017 documented as of this encounter (statuses as of 06/23/2019) Medications Medication Sig Dispensed Refills Start Date [...] SPRAY) 0.65 % nasal spray Administer 1 [place] into nostril as needed for Congestion. 0 [...] as of this encounter (statuses as of 06/23/2019) Active Problems Problem Noted Date Anxiety 03/28/2017 [...] as of this encounter (statuses as of 06/23/2019) Resolved Problems Problem Noted Date Resolved Date Reaction to allergy injection 05/19/2019 Pollen-food allergy syndrome 03/28/201708/2018 Encounter for supervision of other normal pregna ncy 03/13/2011 09/11/2016 Overview: ICD-10 update of inactive term Acute bronchitis, complicated 02/25/2010 Asthma with severity to be determined 02/13/2017 Overview: ICD-10 update of inactive term documented as of this encounter (statuses as of 06/23/2019) Immunizations Name Administration Dates Next Due Diptheria/Tetanus [...] Progress Notes * Lorene Dhaliwal LPN - 06/23/2019 3:46 PM EST Pre-injection Questionnaire Patient identified by [...] Visit Family Medicine Gab Smith DO [address] [facility] [place] [address] [phone] Health Maintenance Due Date Last Done Comments [...] Documents on File Type Date Recorded Patient [employer] Expl 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
--- OUTSIDE RECORDS SUMMARY | 2023-04-16 16:22 | External Medical Summary | Summary of Care ---
Author Name Unknown Organization [place] [address] Care Team Providers Care Vein Access Technician Name Role Phone Gab Smith DO Primary Care Provider Reason for Visit * Reason Comments Allergy Injection Encounter Details Date Type Department Care Team Description 04/23/2019 Immunization/In jection Allergy/Immunology [facility] [address] [place] [address] [place], Nurse Allergy Scenery [address] [place] [address] [phone] Allergic rhinitis, unspecified seasonality, unspecified trigger* Allergies Active Allergy Reactions Severity Noted Date Comments [place] (Diagnostic) Anaphylaxis High 05/21/2017 Banana Edema airway High 01/10/2017 Cat Dander Anaphylaxis High 05/21/2017 Corylus Anaphylaxis High 05/21/2017 Latex Rash Low 01/10/2017 Lac Bovis Other (Please comment) 01/16/2017 Mouth tenderness. Peanut (Diagnostic) Anaphylaxis High 05/21/2017 Prednisone Psych complications 01/17/2017 agitation Sesame Seed (Diagnostic) Anaphylaxis High 05/21/2017 Soy Allergy Anaphylaxis High 01/16/2017 [place] Oil Edema airway High 01/10/2017 Wasp Venom Edema airway High 01/10/2017 documented as of this encounter (statuses as of 04/23/2019) Medications Medication Sig Dispensed Refills Start Date [...] SPRAY) 0.65 % nasal spray Administer 1 [place] into nostril as needed for Congestion. 0 [...] as of this encounter (statuses as of 04/23/2019) Active Problems Problem Noted Date Pollen-food allergy [...] as of this encounter (statuses as of 04/23/2019) Resolved Problems Problem Noted Date Resolved Date Encounter for supervision of other normal pregna ncy 03/13/2011 09/11/2016 Overview: ICD-10 update of inactive term Acute bronchitis, complicated 02/25/2010 Asthma with severity to be determined 02/13/2017 Overview: ICD-10 update of inactive term documented as of this encounter (statuses as of 04/23/2019) Immunizations Name Administration Dates Next Due Diptheria/Tetanus [...] Progress Notes * Liz Cr RN - 04/23/2019 12:24 PM EDT Pre-injection Questionnaire Patient identified by [...] Allergy & Immunology Valeriy Milton MD [address] [facility] [address] [phone] 07/15/2019 Office Visit Family Medicine Gab Smith, [address] [facility] [place] [address] [phone] Health Maintenance Due Date Last Done Comments DTaP,Tdap,and Td Vaccines (3 - Td) 01/30/2019 01/30/2009, 02/10/1998 Influenza Vaccine (FLU shot) (#1) 2019 PAP SMEAR-EVERY 3 YRS,AGES 21-65 04/15/2020 Postponed from 07/27 (Done Elsewhere) PNEUMOCOCCAL 19-64 MEDIUM RISK (1 of 1 - PPSV23) 04/15/2020 Postponed from (Patient Declined After Education) MENINGOCOCCAL (MENACTRA) Aged Out No longer eligible based on patient's age to complete this topic documented as of this encounter Implants Not on filedocumented as of this encounter Visit Diagnoses Diagnosis Allergic rhinitis, unspecified seasonality, unspecified trigger- Primary documented in this encounter Advance Directives Documents on File Type Date Recorded 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
--- OUTSIDE RECORDS SUMMARY | 2023-04-16 16:22 | External Medical Summary | Summary of Care ---
Author Name Unknown Organization [place] [address] Care Team Providers Care Swatch Checker Name Role Phone Gab Smith DO Primary Care Provider [phone] Reason for Visit * Reason Comments Allergy Injection Encounter Details Date Type Department Care Team Description 05/18/2019 Immunization/In jection Allergy/Immunology [facility] [address] [place] [address] [place], Nurse Allergy Scenery [address] [place] [address] [phone] Allergic rhinitis, unspecified seasonality, unspecified trigger* Allergies Active Allergy Reactions Severity Noted Date Comments [place] (Diagnostic) Anaphylaxis High 05/21/2017 Banana Edema airway High 01/10/2017 Cat Dander Anaphylaxis High 05/21/2017 Corylus Anaphylaxis High 05/21/2017 Latex Rash Low 01/10/2017 Lac Bovis Other (Please comment) 01/16/2017 Mouth tenderness. Peanut (Diagnostic) Anaphylaxis High 05/21/2017 Prednisone Psych complications 01/17/2017 agitation Sesame Seed (Diagnostic) Anaphylaxis High 05/21/2017 Soy Allergy Anaphylaxis High 01/16/2017 Coffee Oil Edema airway High 01/10/2017 Wasp Venom Edema airway High 01/10/2017 documented as of this encounter (statuses as of 05/18/2019) Medications Medication Sig Dispensed Refills Start Date [...] SPRAY) 0.65 % nasal spray Administer 1 [place] into nostril as needed for Congestion. 0 [...] as of this encounter (statuses as of 05/18/2019) Active Problems Problem Noted Date Pollen-food allergy [...] as of this encounter (statuses as of 05/18/2019) Resolved Problems Problem Noted Date Resolved Date Encounter for supervision of other normal pregna ncy 03/13/2011 09/11/2016 Overview: ICD-10 update of inactive term Acute bronchitis, complicated 02/25/2010 Asthma with severity to be determined 02/13/2017 Overview: ICD-10 update of inactive term documented as of this encounter (statuses as of 05/18/2019) Immunizations Name Administration Dates Next Due Diptheria/Tetanus [...] Progress Notes * Lakshmi Obrien RN - 05/18/2019 6:11 PM EDT Pre-injection Questionnaire Patient identified by [...] Visit Allergy & Immunology Valeriy Milton MD [address] [place] [address] [place] [address] [phone] 07/17/2019 Office Visit [facility] Gab [facility] [address] [phone] Health Maintenance Due Date Last Done Comments [...] Documents on File Type Date Recorded 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
--- OUTSIDE RECORDS SUMMARY | 2023-04-16 16:23 | External Medical Summary | Summary of Care ---
Author Name Unknown Organization [place] [address] Care Team Providers Care Refinery Operator Alkylation Name Role Phone Gab Smith DO Primary Care Provider [phone] Reason for Visit * Reason Comments Allergy Injection Encounter Details Date Type Department Care Team Description 02/27/2019 Immunization/In jection Allergy/Immunology [facility] [address] [place] [address] [place], Nurse Allergy Scenery [address] [place] [address] [phone] Allergic rhinitis, unspecified seasonality, unspecified trigger* Allergies Active Allergy Reactions Severity Noted Date Comments [place] (Diagnostic) Anaphylaxis High 05/21/2017 Banana Edema airway High 01/10/2017 Cat Dander Anaphylaxis High 05/21/2017 Corylus Anaphylaxis High 05/21/2017 Latex Rash Low 01/10/2017 Lac Bovis Other (Please comment) 01/16/2017 Mouth tenderness. Peanut (Diagnostic) Anaphylaxis High 05/21/2017 Prednisone Psych complications 01/17/2017 agitation Sesame Seed (Diagnostic) Anaphylaxis High 05/21/2017 Soy Allergy Anaphylaxis High 01/16/2017 [place] Oil Edema airway High 01/10/2017 Wasp Venom Edema airway High 01/10/2017 documented as of this encounter (statuses as of 02/27/2019) Medications Medication Sig Dispensed Refills Start Date [...] SPRAY) 0.65 % nasal spray Administer 1 [place] into nostril as needed for Congestion. 0 [...] as of this encounter (statuses as of 02/27/2019) Active Problems Problem Noted Date Pollen-food allergy [...] as of this encounter (statuses as of 02/27/2019) Resolved Problems Problem Noted Date Resolved Date Encounter for supervision of other normal pregna ncy 03/13/2011 09/11/2016 Overview: ICD-10 update of inactive term Acute bronchitis, complicated 02/25/2010 Asthma with severity to be determined 02/13/2017 Overview: ICD-10 update of inactive term documented as of this encounter (statuses as of 02/27/2019) Immunizations Name Administration Dates Next Due Diptheria/Tetanus (Adult) 02/10/19982007 HEP A - Hepatitis A (Ped/Adole, 2-18 Yrs) 1999,06/12/1999 HEP B - Hepatitis B (Adole/High Risk Ped, 11-15 yrs 06/12/1999 07/13/1999 Hepatitis B, 0-19 yrs 04/24/2000 05/24/2000 MMR - Measles/Mumps/Rubella Vaccine 03/08/1995 PPD 11/21/2007,06/04/2001 TB Feliciats Test 07/01/1998 TDAP (age 10 and older)(Boostrix) [...] Progress Notes * Liz Cr RN - 02/27/2019 11:47 AM EDT Pre-injection Questionnaire Patient identified by [...] Encounters Date Type Specialty Care Team Description 03/04/2019 Office Visit Family Medicine Gab Smith DO [address] [facility] [place] [address] [phone] 06/02/2019 Office Visit Allergy & Immunology [facility] [address] [phone] Health Maintenance Due Date Last Done Comments [...] Documents on File Type Date Recorded Patient Nurse Consultant Expl 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
--- OUTSIDE RECORDS SUMMARY | 2023-04-16 16:23 | External Medical Summary | Summary of Care ---
Author Name Unknown Organization [place] [address] Care Team Providers Care Hospital [facility] Assistant Name Role Phone Gab Smith DO Primary Care Provider [phone] Reason for Visit * Reason Comments Medication Refill Encounter Details Date Type Department Care Team Description 01/26/2019 Refill Family Practice [facility] [address] [facility] [address] [facility] [address] [phone] Allergic reaction, initial encounter Allergies Active Allergy Reactions Severity Noted Date Comments [place] (Diagnostic) Anaphylaxis High 05/21/2017 Banana Edema airway High 01/10/2017 Cat Dander Anaphylaxis High 05/21/2017 Corylus Anaphylaxis High 05/21/2017 Latex Rash Low 01/10/2017 Lac Bovis Other (Please comment) 01/16/2017 Mouth tenderness. Peanut (Diagnostic) Anaphylaxis High 05/21/2017 Prednisone Psych complications 01/17/2017 agitation Sesame Seed (Diagnostic) Anaphylaxis High 05/21/2017 Soy Allergy Anaphylaxis High 01/16/2017 [place] Oil Edema airway High 01/10/2017 Wasp Venom Edema airway High 01/10/2017 documented as of this encounter (statuses as of 01/27/2019) Medications Medication Sig Dispensed Refills Start Date [...] SPRAY) 0.65 % nasal spray Administer 1 [place] into nostril as needed for Congestion. 0 [...] allergy symptoms 1 Inhaler 5 06/23/2018 Active albuterol HFA (VENTOLIN HFA) 108 (90 BASE) MCG/ACT inhaler Inhale 2 Puffs by mouth every 4 hours as needed for Cough, Shortness of Breath or Wheezing. 1 Inhaler 3 11/24/2018 Active EPINEPHrine, anaphylaxis, (EPI-PEN) 0.3 MG/0.3ML SOAJ injectionIndicat ions:Allergic reaction, initial encounter For a severe reaction: Place orange end against the outer thigh, press firmly, hold in place for 10 seconds and go to the Emergency room. 2 Device 4 01/27/2019 Active EPINEPHrine, anaphylaxis, (EPI-PEN) 0.3 MG/0.3ML SOAJ injectionIndicat ions:Allergic reaction, initial encounter For a severe reaction: Place orange end against the outer thigh, press firmly, hold in place for 10 seconds and go to the Emergency room. 2 Device 4 11/27/2017 9 Discontinued documented as of this encounter (statuses as of 01/27/2019) Active Problems Problem Noted Date Pollen-food allergy [...] as of this encounter (statuses as of 01/27/2019) Resolved Problems Problem Noted Date Resolved Date Encounter for supervision of other normal pregna ncy 03/13/2011 09/11/2016 Overview: ICD-10 update of inactive term Acute bronchitis, complicated 02/25/2010 Asthma with severity to be determined 02/13/2017 Overview: ICD-10 update of inactive term documented as of this encounter (statuses as of 01/27/2019) Immunizations Name Administration Dates Next Due Diptheria/Tetanus [...] Telephone Encounter - Gab Smith DO - 01/27/2019 2:37 PM EDT Signed Prescriptions: Disp Refills EPINEPHrine, anaphylaxis, (EPI-PEN) 0.3 MG*2 Litzy*4 Sig: For a severe reaction: Place orange end against the outer thigh, press firmly, hold in place for 10 seconds and go to the Emergency room. Authorizing Provider: GAB SMITH * Telephone Encounter - Margarita Driver [facility] - 01/27/2019 1:06 PM EDT Pending Prescriptions: Disp Refills EPINEPHrine, anaphylaxis, (EPI-PEN) 0.3 M*2 Litzy*4 Sig: For a severe reaction: Place orange end against the outer thigh, press firmly, hold in place for 10 seconds and go to the Emergency room. * Telephone Encounter - Marcelina Herman, healthcare insurance sales agent - 01/26/2019 3:43 PM EDT Pending Prescriptions: Disp Refills EPINEPHrine, anaphylaxis, (EPI-PEN) 0.3 M*2 Litzy*4 Sig: For a severe reaction: Place orange end against the outer thigh, press firmly, hold in place for 10 seconds and go to the Emergency room. Last Office Visit: 10/07/2018 Next Office Visit: 03/04/2019 Scheduled Provider(s): Gab Smith DO If no future appointments scheduled, and last appointment is greater than a year ago, please schedule patient for a follow-up appointment Last date the medication was ordered: 11/27/2017 Patient Phone Numbers Labs: Lab Results Component Value Date/Time CREAT 1.00 01/14/2017 CREAT 0.7 10/10/2016 03:01 PM POTASSIUM 4.4 10/10/2016 03:01 PM TSH 0.80 10/05/2016 01:47 PM ALT 27 10/10/2016 03:01 PM documented in this encounter Plan of Treatment Upcoming Encounters Date Type Specialty Care Team Description 03/04/2019 Office Visit Family Medicine Gab Smith, [address] [facility] [place] [address] 06/02/2019 Office Visit Allergy & Immunology Valeriy Milton MD [address] [facility], [place] [address] Health Maintenance Due Date Last Done Comments PNEUMOCOCCAL 19-64 MEDIUM RI SK (1 of 1 - PPSV23) 2002 PAP SMEAR-EVERY 3 YRS,AGES 21-65 2004 DTaP,Tdap,and Td Vaccines (3 - Td) 01/30/2019 01/30/2009, 02/10/1998 Influenza Vaccine (FLU shot) (Season Ended) 2019 MENINGOCOCCAL (MENACTRA) Aged Out No longer eligible based on patient's age to complete this topic documented as of this encounter Implants Not on filedocumented as of this encounter Visit Diagnoses Diagnosis Allergic reaction, initial encounter documented in this encounter Advance Directives Documents on File Type Date Recorded Patient Field Service Technician Poultry Expl 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
--- OUTSIDE RECORDS SUMMARY | 2023-04-16 16:23 | External Medical Summary | Summary of Care ---
Author Name Unknown Organization [place] [address] Care Team Providers Care Forestry Biology Specialist Name Role Phone Gab Smith DO Primary Care Provider [phone] Encounter Details Date Type Department Care Team Description 03/13/2019 Scan Encounter Unspecified Department <No scans attached> Allergies Active Allergy Reactions Severity Noted Date Comments [place] (Diagnostic) Anaphylaxis High 05/21/2017 Banana Edema airway High 01/10/2017 Cat Dander Anaphylaxis High 05/21/2017 Corylus Anaphylaxis High 05/21/2017 Latex Rash Low 01/10/2017 Lac Bovis Other (Please comment) 01/16/2017 Mouth tenderness. Peanut (Diagnostic) Anaphylaxis High 05/21/2017 Prednisone Psych complications 01/17/2017 agitation Sesame Seed (Diagnostic) Anaphylaxis High 05/21/2017 Soy Allergy Anaphylaxis High 01/16/2017 [place] Oil Edema airway High 01/10/2017 Wasp Venom Edema airway High 01/10/2017 documented as of this encounter (statuses as of 03/13/2019) Medications Medication Sig Dispensed Refills Start Date [...] SPRAY) 0.65 % nasal spray Administer 1 [place] into nostril as needed for Congestion. 0 [...] as of this encounter (statuses as of 03/13/2019) Active Problems Problem Noted Date Pollen-food allergy [...] as of this encounter (statuses as of 03/13/2019) Resolved Problems Problem Noted Date Resolved Date Encounter for supervision of other normal pregna ncy 03/13/2011 09/11/2016 Overview: ICD-10 update of inactive term Acute bronchitis, complicated 02/25/2010 Asthma with severity to be determined 02/13/2017 Overview: ICD-10 update of inactive term documented as of this encounter (statuses as of 03/13/2019) Immunizations Name Administration Dates Next Due Diptheria/Tetanus [...] Travel End documented as of this encounter Plan of Treatment Upcoming Encounters Date Type Specialty Care Team Description 04/15/2019 Office Visit Family Medicine Gab Smith, [address] [place] [address] [phone] 06/02/2019 Office Visit Allergy & Immunology Valeriy Milton MD 200 [place] [address] [phone] Health Maintenance Due Date Last Done Comments [...] Documents on File Type Date Recorded Patient Garnetter Expl 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
--- OUTSIDE RECORDS SUMMARY | 2023-04-16 16:23 | External Medical Summary | Summary of Care ---
Author Name Unknown Organization [place] [address] Care Team Providers Care Medical Art Therapist Name Role Phone Gab Smith DO Primary Care Provider Reason for Visit * Reason Comments Allergy Injection Encounter Details Date Type Department Care Team Description 01/22/2019 Immunization/In jection Allergy/Immunology [facility] [address] [place] [address] Park, Nurse Allergy Scenery [address] [place], [place] [id number] Allergic rhinitis, unspecified seasonality, unspecified trigger* Allergies Active Allergy Reactions Severity Noted Date Comments [place] (Diagnostic) Anaphylaxis High 05/21/2017 Banana Edema airway High 01/10/2017 Cat Dander Anaphylaxis High 05/21/2017 Corylus Anaphylaxis High 05/21/2017 Latex Rash Low 01/10/2017 Lac Bovis Other (Please comment) 01/16/2017 Mouth tenderness. Peanut (Diagnostic) Anaphylaxis High 05/21/2017 Prednisone Psych complications 01/17/2017 agitation Sesame Seed (Diagnostic) Anaphylaxis High 05/21/2017 Soy Allergy Anaphylaxis High 01/16/2017 [place] Oil Edema airway High 01/10/2017 Wasp Venom Edema airway High 01/10/2017 documented as of this encounter (statuses as of 01/22/2019) Medications Medication Sig Dispensed Refills Start Date [...] 1 Tab by mouth daily. 0 Active EPINEPHrine, anaphylaxis, (EPI-PEN) 0.3 MG/0.3ML SOAJ injectionIndication s:Allergic reaction, initial encounter For a severe reaction: Place orange end against the outer thigh, press firmly, hold in place for 10 seconds and go to the Emergency room. 2 Device 4 11/27/2017 Active cromolyn sodium (CROLOM) 4 % ophthalmic [...] or Wheezing. 1 Inhaler 3 11/24/2018 Active documented as of this encounter (statuses as of 01/22/2019) Active Problems Problem Noted Date Pollen-food allergy [...] as of this encounter (statuses as of 01/22/2019) Resolved Problems Problem Noted Date Resolved Date Encounter for supervision of other normal pregna ncy 03/13/2011 09/11/2016 Overview: ICD-10 update of inactive term Acute bronchitis, complicated 02/25/2010 Asthma with severity to be determined 02/13/2017 Overview: ICD-10 update of inactive term documented as of this encounter (statuses as of 01/22/2019) Immunizations Name Administration Dates Next Due Diptheria/Tetanus (Adult) 02/10/19982007 HEP A - Hepatitis A (Ped/Adole, 2-18 Yrs) 1999,06/12/1999 HEP B - Hepatitis B (Adole/High Risk Ped, 11-15 yrs 06/12/1999 07/13/1999 Hepatitis B, 0-19 yrs 04/24/2000 05/24/2000 MMR - Measles/Mumps/Rubella Vaccine 03/08/1995 PPD 11/21/2007,06/04/2001 TB Felicitsa Test 07/01/1998 TDAP (age 10 and older)(Boostrix) [...] Progress Notes * Liz Cr RN - 01/22/2019 12:22 PM EDT Pre-injection Questionnaire Patient identified [...] Visit Family Medicine Gab [facility] DO [address] [facility] [address] 06/02/2019 Office Visit Allergy & Immunology Valeriy Milton MD 200 [facility] [place] [id number] Health Maintenance Due Date Last Done Comments [...] Documents on File Type Date Recorded Patient Division Supervisor Expl 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
--- OUTSIDE RECORDS SUMMARY | 2023-04-16 16:23 | External Medical Summary | Summary of Care ---
Author Name Unknown Organization [place] [address] Care Team Providers Care Board Certified Behavioral Analyst Name Role Phone Gab Smith DO Primary Care Provider Reason for Visit * Reason Comments Allergy Injection Encounter Details Date Type Department Care Team Description 01/15/2019 Immunization/In jection Allergy/Immunology [facility] [address] [place] [address] Park, Nurse Allergy Scenery [address] [place], [place] [id number] Allergic rhinitis, unspecified seasonality, unspecified trigger* Allergies Active Allergy Reactions Severity Noted Date Comments [place] (Diagnostic) Anaphylaxis High 05/21/2017 Banana Edema airway High 01/10/2017 Cat Dander Anaphylaxis High 05/21/2017 Corylus Anaphylaxis High 05/21/2017 Latex Rash Low 01/10/2017 Lac Bovis Other (Please comment) 01/16/2017 Mouth tenderness. Peanut (Diagnostic) Anaphylaxis High 05/21/2017 Prednisone Psych complications 01/17/2017 agitation Sesame Seed (Diagnostic) Anaphylaxis High 05/21/2017 Soy Allergy Anaphylaxis High 01/16/2017 [place] Oil Edema airway High 01/10/2017 Wasp Venom Edema airway High 01/10/2017 documented as of this encounter (statuses as of 01/15/2019) Medications Medication Sig Dispensed Refills Start Date [...] SPRAY) 0.65 % nasal spray Administer 1 [place] into nostril as needed for Congestion. 0 [...] as of this encounter (statuses as of 01/15/2019) Active Problems Problem Noted Date Pollen-food allergy [...] as of this encounter (statuses as of 01/15/2019) Resolved Problems Problem Noted Date Resolved Date Encounter for supervision of other normal pregna ncy 03/13/2011 09/11/2016 Overview: ICD-10 update of inactive term Acute bronchitis, complicated 02/25/2010 Asthma with severity to be determined 02/13/2017 Overview: ICD-10 update of inactive term documented as of this encounter (statuses as of 01/15/2019) Immunizations Name Administration Dates Next Due Diptheria/Tetanus [...] Progress Notes * Lorene Dhaliwal LPN - 01/15/2019 4:08 PM EDT Pre-injection Questionnaire Patient identified by [...] Visit Family Medicine Gab Smith DO [address] [facility] [place] [address] 06/02/2019 Office Visit Allergy & Immunology Valeriy Milton MD [address] [facility] [phone] Health Maintenance Due Date Last Done Comments [...] Documents on File Type Date Recorded 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
--- OUTSIDE RECORDS SUMMARY | 2023-04-16 16:23 | External Medical Summary | Summary of Care ---
Author Name Unknown Organization [place] [address] Care Team Providers Care Production Internship Name Role Phone Gab Smith DO Primary Care Provider [phone] Reason for Visit * Reason Comments Allergy Injection Encounter Details Date Type Department Care Team Description 03/05/2019 Immunization/In jection Allergy/Immunology [facility] [address] [place] [address] Park, Nurse Allergy Scenery [address] [place] [address] [phone] Allergic rhinitis, unspecified seasonality, unspecified trigger* Allergies Active Allergy Reactions Severity Noted Date Comments [place] (Diagnostic) Anaphylaxis High 05/21/2017 Banana Edema airway High 01/10/2017 Cat Dander Anaphylaxis High 05/21/2017 Corylus Anaphylaxis High 05/21/2017 Latex Rash Low 01/10/2017 Lac Bovis Other (Please comment) 01/16/2017 Mouth tenderness. Peanut (Diagnostic) Anaphylaxis High 05/21/2017 Prednisone Psych complications 01/17/2017 agitation Sesame Seed (Diagnostic) Anaphylaxis High 05/21/2017 Soy Allergy Anaphylaxis High 01/16/2017 [place] Oil Edema airway High 01/10/2017 Wasp Venom Edema airway High 01/10/2017 documented as of this encounter (statuses as of 03/05/2019) Medications Medication Sig Dispensed Refills Start Date [...] SPRAY) 0.65 % nasal spray Administer 1 [place] into nostril as needed for Congestion. 0 [...] as of this encounter (statuses as of 03/05/2019) Active Problems Problem Noted Date Pollen-food allergy [...] as of this encounter (statuses as of 03/05/2019) Resolved Problems Problem Noted Date Resolved Date Encounter for supervision of other normal pregna ncy 03/13/2011 09/11/2016 Overview: ICD-10 update of inactive term Acute bronchitis, complicated 02/25/2010 Asthma with severity to be determined 02/13/2017 Overview: ICD-10 update of inactive term documented as of this encounter (statuses as of 03/05/2019) Immunizations Name Administration Dates Next Due Diptheria/Tetanus [...] Progress Notes * Marilee Bobby LPN - 03/05/2019 11:49 AM EDT Pre-injection Questionnaire Patient identified by [...] Visit Family Medicine Gab Smith DO [address] [facility] [place] [address] 06/02/2019 Office Visit Allergy & Immunology Valeriy Milton MD [address] [facility] [address] [phone] Health Maintenance Due Date Last Done Comments [...] Documents on File Type Date Recorded Patient Instructional Systems Specialist Expl 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
--- OUTSIDE RECORDS SUMMARY | 2023-04-16 16:23 | External Medical Summary | Summary of Care ---
Author Name Unknown Organization [place] [address] Care Team Providers Care Double End Sewer Name Role Phone Gab Smith DO Primary Care Provider Reason for Visit * Reason Comments Medication Refill Encounter Details Date Type Department Care Team Description 01/26/2019 Refill Family Practice [facility] [address] [facility] [address] [facility] DO [address] [facility] [address] [phone] Allergies Active Allergy Reactions Severity Noted Date Comments [place] (Diagnostic) Anaphylaxis High 05/21/2017 Banana Edema airway High 01/10/2017 Cat Dander Anaphylaxis High 05/21/2017 Corylus Anaphylaxis High 05/21/2017 Latex Rash Low 01/10/2017 Lac Bovis Other (Please comment) 01/16/2017 Mouth tenderness. Peanut (Diagnostic) Anaphylaxis High 05/21/2017 Prednisone Psych complications 01/17/2017 agitation Sesame Seed (Diagnostic) Anaphylaxis High 05/21/2017 Soy Allergy Anaphylaxis High 01/16/2017 [place] Oil Edema airway High 01/10/2017 Wasp Venom [...] SPRAY) 0.65 % nasal spray Administer 1 [place] into nostril as needed for Congestion. 0 [...] or Wheezing. 1 Inhaler 3 01/27/2019 Active EPINEPHrine, anaphylaxis, (EPI-PEN) 0.3 MG/0.3ML SOAJ injectionIndicat ions:Allergic reaction, initial encounter For a severe reaction: Place orange end against the outer thigh, press firmly, hold in place for 10 seconds and go to the Emergency room. 2 Device 4 11/27/2017 9 Discontinued albuterol HFA (VENTOLIN HFA) 108 (90 BASE) MCG/ACT inhaler Inhale 2 Puffs by mouth every 4 hours as needed for Cough, Shortness of Breath or Wheezing. 1 Inhaler 3 11/24/2018 9 Discontinued documented as of this encounter [...] Telephone Encounter - Ramses Bryant MD - 01/27/2019 4:31 PM EDT Signed Prescriptions: Disp Refills albuterol HFA (VENTOLIN HFA) 108 (90 BASE)*1 Inha*3 Sig: Inhale 2 Puffs by mouth every 4 hours as needed for Cough, Shortness of Breath or Wheezing. Authorizing Provider: RAMSES BRYANT * Telephone Encounter - Patrick Jackson [facility] - 01/27/2019 1:19 PM EDT Pending Prescriptions: Disp Refills albuterol HFA (VENTOLIN HFA) 108 (90 BASE*3 Inha*1 Sig: Inhale 2 Puffs by mouth every 4 hours as needed for Cough, Shortness of Breath or Wheezing. * Telephone Encounter - Patrick Jackson [facility] - 01/27/2019 1:18 PM EDT Patient requesting refills for albuterol. As per protocol, refill pharmacists only permitted to authorize prescriptions written by family practice PCPs. Please approve if appropriate. Thanks, Patrick Jackson, CarolD Clinical Pharmacist Telepharmacy 01/27/2019, 1:18 PM * Telephone Encounter - Marcelina Herman, delinquent notice machine operator - 01/26/2019 3:46 PM EDT Pt states her insurance requires a 90 day supply now. Pre-edited. Please approve if appropriate. Pending Prescriptions: Disp Refills albuterol HFA (VENTOLIN HFA) 108 (90 BASE*1 Inha*3 Sig: Inhale 2 Puffs by mouth every 4 hours as needed for Cough, Shortness of Breath or Wheezing. Last Office Visit: 10/07/2018 Next Office Visit: 03/04/2019 Scheduled Provider(s): Gab Smith DO If no future appointments scheduled, and last appointment is greater than a year ago, please schedule patient for a follow-up appointment Last date the medication was ordered: 11/24/2018 Patient Phone Numbers Labs: Lab Results Component Value Date/Time CREAT 1.00 01/14/2017 CREAT 0.7 10/10/2016 03:01 PM POTASSIUM 4.4 10/10/2016 03:01 PM TSH 0.80 10/05/2016 01:47 PM ALT 27 10/10/2016 03:01 PM documented in this encounter Plan of Treatment Upcoming Encounters Date Type Specialty Care Team Description 03/04/2019 Office Visit Family Medicine Gab Smith DO [address] [facility] [place] [address] 06/02/2019 Office Visit Allergy & Immunology Ramses Bryant MD [address] [facility] [address] Health Maintenance Due Date Last Done Comments [...] Documents on File Type Date Recorded Patient Cultural Centre Manager Expl 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
--- OUTSIDE RECORDS SUMMARY | 2023-04-16 16:23 | External Medical Summary | Summary of Care ---
Author Name Unknown Organization [place] [address] Care Team Providers Care Helicopter Repairer Name Role Phone Gab Smith DO Primary Care Provider Reason for Visit * Reason Comments Allergy Injection Encounter Details Date Type Department Care Team Description 02/17/2019 Immunization/In jection Allergy/Immunology [facility] [address] [place] [address] Park, Nurse Allergy Scenery [address] [place] [address] [phone] Allergic rhinitis, unspecified seasonality, unspecified trigger* Allergies Active Allergy Reactions Severity Noted Date Comments [place] (Diagnostic) Anaphylaxis High 05/21/2017 Banana Edema airway High 01/10/2017 Cat Dander Anaphylaxis High 05/21/2017 Corylus Anaphylaxis High 05/21/2017 Latex Rash Low 01/10/2017 Lac Bovis Other (Please comment) 01/16/2017 Mouth tenderness. Peanut (Diagnostic) Anaphylaxis High 05/21/2017 Prednisone Psych complications 01/17/2017 agitation Sesame Seed (Diagnostic) Anaphylaxis High 05/21/2017 Soy Allergy Anaphylaxis High 01/16/2017 [place] Oil Edema airway High 01/10/2017 Wasp Venom Edema airway High 01/10/2017 documented as of this encounter (statuses as of 02/17/2019) Medications Medication Sig Dispensed Refills Start Date [...] SPRAY) 0.65 % nasal spray Administer 1 [place] into nostril as needed for Congestion. 0 [...] as of this encounter (statuses as of 02/17/2019) Active Problems Problem Noted Date Pollen-food allergy [...] as of this encounter (statuses as of 02/17/2019) Resolved Problems Problem Noted Date Resolved Date Encounter for supervision of other normal pregna ncy 03/13/2011 09/11/2016 Overview: ICD-10 update of inactive term Acute bronchitis, complicated 02/25/2010 Asthma with severity to be determined 02/13/2017 Overview: ICD-10 update of inactive term documented as of this encounter (statuses as of 02/17/2019) Immunizations Name Administration Dates Next Due Diptheria/Tetanus [...] Progress Notes * Marilee Bobby LPN - 02/17/2019 2:22 PM EDT 3Pre-injection Questionnaire Patient identified by stating name and [...] Visit Family Medicine Gab Smith DO [address] [facility] [place] [address] 06/02/2019 Office Visit Allergy & Immunology Valeriy Milton MD [address] [facility] [address] [phone] Health Maintenance Due Date Last Done Comments [...] Documents on File Type Date Recorded Patient Shopfitter Expl 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
--- OUTSIDE RECORDS SUMMARY | 2023-04-16 16:23 | External Medical Summary | Summary of Care ---
Author Name Unknown Organization [place] [address] Care Team Providers Care Fireboat Operator Name Role Phone Gab Smith DO Primary Care Provider Reason for Visit * Reason Comments Allergy Injection Encounter Details Date Type Department Care Team Description 02/05/2019 Immunization/In jection Allergy/Immunology [facility] [address] [place] [address] Park, Nurse Allergy Scenery [address] [place], [place] [id number] Allergic rhinitis, unspecified seasonality, unspecified trigger* Allergies Active Allergy Reactions Severity Noted Date Comments [place] (Diagnostic) Anaphylaxis High 05/21/2017 Banana Edema airway High 01/10/2017 Cat Dander Anaphylaxis High 05/21/2017 Corylus Anaphylaxis High 05/21/2017 Latex Rash Low 01/10/2017 Lac Bovis Other (Please comment) 01/16/2017 Mouth tenderness. Peanut (Diagnostic) Anaphylaxis High 05/21/2017 Prednisone Psych complications 01/17/2017 agitation Sesame Seed (Diagnostic) Anaphylaxis High 05/21/2017 Soy Allergy Anaphylaxis High 01/16/2017 [place] Oil Edema airway High 01/10/2017 Wasp Venom Edema airway High 01/10/2017 documented as of this encounter (statuses as of 02/05/2019) Medications Medication Sig Dispensed Refills Start Date [...] SPRAY) 0.65 % nasal spray Administer 1 [place] into nostril as needed for Congestion. 0 [...] as of this encounter (statuses as of 02/05/2019) Active Problems Problem Noted Date Pollen-food allergy [...] as of this encounter (statuses as of 02/05/2019) Resolved Problems Problem Noted Date Resolved Date Encounter for supervision of other normal pregna ncy 03/13/2011 09/11/2016 Overview: ICD-10 update of inactive term Acute bronchitis, complicated 02/25/2010 Asthma with severity to be determined 02/13/2017 Overview: ICD-10 update of inactive term documented as of this encounter (statuses as of 02/05/2019) Immunizations Name Administration Dates Next Due Diptheria/Tetanus [...] Progress Notes * Liz Cr RN - 02/05/2019 2:25 PM EDT Pre-injection Questionnaire Patient identified by [...] Family Medicine Gab Smith DO [address] 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
--- OUTSIDE RECORDS SUMMARY | 2023-04-16 16:24 | External Medical Summary | Summary of Care ---
Author Name Unknown Organization [place] [address] Care Team Providers Care Table Assembler Metal Name Role Phone LuisGab dash Primary Care Provider [phone] Reason for Visit * Reason Comments Allergy Injection Encounter Details Date Type Department Care Team Description 11/28/2018 Immunization/In jection Allergy/Immunology [facility] [address] [place] [address] Park, Nurse Allergy Scenery [address] [place], [place] [phone] Allergic rhinitis, unspecified seasonality, unspecified trigger* Allergies Active Allergy Reactions Severity Noted Date Comments [place] (Diagnostic) Anaphylaxis High 05/21/2017 Banana Edema airway High 01/10/2017 Cat Dander Anaphylaxis High 05/21/2017 Corylus Anaphylaxis High 05/21/2017 Latex Rash Low 01/10/2017 [place] Other (Please comment) 01/16/2017 Mouth tenderness. Peanut (Diagnostic) Anaphylaxis High 05/21/2017 Prednisone Psych complications 01/17/2017 agitation Sesame Seed (Diagnostic) Anaphylaxis High 05/21/2017 Soy Allergy Anaphylaxis High 01/16/2017 [place] Oil Edema airway High 01/10/2017 Wasp Venom Edema airway High 01/10/2017 documented as of this encounter (statuses as of 11/28/2018) Medications Medication Sig Dispensed Refills Start Date [...] SPRAY) 0.65 % nasal spray Administer 1 [place] into nostril as needed for Congestion. 0 [...] as of this encounter (statuses as of 11/28/2018) Active Problems Problem Noted Date Pollen-food allergy [...] as of this encounter (statuses as of 11/28/2018) Resolved Problems Problem Noted Date Resolved Date Encounter for supervision of other normal pregna ncy 03/13/2011 09/11/2016 Overview: ICD-10 update of inactive term Acute bronchitis, complicated 02/25/2010 Asthma with severity to be determined 02/13/2017 Overview: ICD-10 update of inactive term documented as of this encounter (statuses as of 11/28/2018) Immunizations Name Dates Previously Given Next Due Diptheria/Tetanus (Adult) 02/10/19982007 HEP A [...] Progress Notes * Liz Cr RN - 11/28/2018 12:07 PM EDT Pre-injection Questionnaire Patient identified [...] Medicine [facility] [address] [facility] Office [facility] All[facility] Immunology [facility]iy [facility] [address] [facility] [address] Health Maintenance Due Date Last Done Comments PNEUMOCOCCAL 19-64 MEDIUM RI SK (1 of 1 - PPSV23) 2002 PAP SMEAR-EVERY 3 YRS,AGES 21-65 2004 Influenza Vaccine (FLU shot) (#1) 2018 DTaP,Tdap,and Td Vaccines (3 - Td) 01/30/2019 01/30/2009, 02/10/1998 MENINGOCOCCAL (MENACTRA) Aged Out No longer eligible based on patient's age to complete this topic documented as of this encounter Implants Not on filedocumented as of this encounter Visit Diagnoses Diagnosis Allergic rhinitis, unspecified seasonality, unspecified trigger- Primary documented in this encounter Advance Directives Patient has advance care planning documents, and code status on file. For more information, please contact: [place] [phone] Latest Code Status on File Code Status Date Activated Date Inactivated Comments Full Code 11/04/2013 2:29 AM 11/04/2013 9:58 PM This order reflects the patients wishes and were consensually agreed upon.
--- OUTSIDE RECORDS SUMMARY | 2023-04-16 16:24 | External Medical Summary | Summary of Care ---
Author Name Unknown Organization [place] [address] Care Team Providers Care Siphoner Name Role Phone Gab Smith DO Primary Care Provider [phone] Reason for Visit * Reason Comments Allergy Return * Evaluate & Treat - Unlimited Visits (Within 10 days (routine)) Status Reason Specialty Diagnoses / Procedures Referred By Contact Referred To Contact Authorized Specialty Services Required Allergy & Immunology Diagnoses Seasonal allergic rhinitis due to pollen Gab Smith DO [address] [place] [address] Encounter Details Date Type Department Care Team Description 11/24/2018 Office Visit Allergy/Immunology [facility] [address] [place] [address] Valeriy Milton MD [address] [place] [address] Chronic seasonal allergic rhinitis due to pollen*; Allergic rhinitis due to dust; Chronic seasonal allergic rhinitis due to fungal spores; Non-seasonal allergic rhinitis due to animal hair and dander; Pollen-food allergy syndrome, subsequent encounter; Mild intermittent extrinsic asthma without complication Allergies Active Allergy Reactions Severity Noted Date Comments [place] (Diagnostic) Anaphylaxis High 05/21/2017 Banana Edema airway High 01/10/2017 Cat Dander Anaphylaxis High 05/21/2017 Corylus Anaphylaxis High 05/21/2017 Latex Rash Low 01/10/2017 [place] Other (Please comment) 01/16/2017 Mouth tenderness. Peanut (Diagnostic) Anaphylaxis High 05/21/2017 Prednisone Psych complications 01/17/2017 agitation Sesame Seed (Diagnostic) Anaphylaxis High 05/21/2017 Soy Allergy Anaphylaxis High 01/16/2017 [place] Oil Edema airway High 01/10/2017 Wasp Venom Edema airway High 01/10/2017 documented as of this encounter (statuses as of 11/25/2018) Medications Medication Sig Dispensed Refills Start Date [...] SPRAY) 0.65 % nasal spray Administer 1 [place] into nostril as needed for Congestion. 0 [...] or Wheezing. 1 Inhaler 3 11/24/2018 Active albuterol (VENTOLIN HFA) 108 (90 BASE) MCG/ACT inhaler Inhale 2 Puffs by mouth every 4 hours as needed for Cough, Shortness of Breath or Wheezing. 1 Inhaler 3 02/13/2017 9 Discontinued documented as of this encounter (statuses as of 11/25/2018) Active Problems Problem Noted Date Pollen-food allergy [...] as of this encounter (statuses as of 11/25/2018) Resolved Problems Problem Noted Date Resolved Date Encounter for supervision of other normal pregna ncy 03/13/2011 09/11/2016 Overview: ICD-10 update of inactive term Acute bronchitis, complicated 02/25/2010 Asthma with severity to be determined 02/13/2017 Overview: ICD-10 update of inactive term documented as of this encounter (statuses as of 11/25/2018) Immunizations Name Dates Previously Given Next Due [...] Vital Signs Vital Sign Reading Time Taken Blood Pressure 104/64 11/24/2018 5:41 PM EDT Pulse 66 11/24/2018 5:41 PM EDT Temperature 36.9 C (98.4 F) 11/24/2018 5 :41 PM EDT Respiratory Rate 18 11/24/2018 5:41 PM EDT Oxygen Saturation - - Inhaled Oxygen Concentration - - Weight 100.8 kg (222 lb 3.2 oz) 019 5:41 PM EDT Height 165.1 cm (5' 5") 11/24/2018 5:41 PM EDT Body Mass Index 36.98 11/24/2018 5:41 PM EDT documented in this encounter Patient Instructions * Patient Instructions* Valeriy Milton MD - 11/24/2018 6:26 PM EDT Pollen Avoidance Measures: Keep windows, doors closed; use air conditioning; dry clothes in vented dryer, not outside on clothesline; shower/bathe and change clothes right after outdoor activity; avoid outdoor activity during high pollen counts; use HEPA type air filtration system. Mold Avoidance Measures: Indoor: Clean moldy surfaces with a diluted bleach solution or a commercial shape brick molder; fix waterleaks; reduce indoor humidity to [...] dust weekly and run HEPA type vacuum quill cleaner. Desirable: Remove carpets from bedroom and [...] Progress Notes * Valeriy Milton MD - 11/24/2018 5:52 PM EDT SUBJECTIVE: Regina abel is evaluated with her in follow up for her food allergies, allergic rhinitis/conjunctivitis, intermittent asthma, and history of insect sting allergy. She did restart her allergy immunotherapy injections as of 08/04/18. She is building up to maintenance dose and does feel they are helping to reduce pollen and dust sensitivity. She is however getting some large local swelling 2-4 hours after her injection which can last about 2-3 days. Sometimes it is sore and itchy. She is afraid to use Benadryl, that it will dry up her breast milk. For the next 3-5 days she feels some extreme fatigue and she is not sure if it is due to her allergy shot, however chronic fatigue has been a problem for her. She has not needed oral antibiotics for recurrent sinus or ear infections. She has not had any asthma exacerbations and rarely needs her albuterol inhaler.Asthma triggers [...] Controlled asthma for the survey taken on: 11/24/2018 5:45:31 PM. Asthma Control Test Summary, Results are Patient Reported The overall score is: 23 suggesting: Well Controlled asthma for the survey taken on: 06/23/2018 5:14:25 PM. Asthma Control Test Summary, Results are Patient Reported The overall score is: 25 suggesting: Well Controlled asthma for the survey taken on: 11/27/2017 3:21:14 PM. Immunotherapy: Started: 08/04/18 - Benefit? YES Reactions? [...] Current Outpatient Medications Medication Sig Dispense Refill fluticasone (FLONASE) 50 MCG/ACT nasal spray Administer 2 Sprays into each nostril daily. Use as needed for worsening or persistent nasal allergy symptoms 1 Inhaler 5 cromolyn sodium (CROLOM) 4 % ophthalmic solution Instill 1 Drop into both eyes 4 times a day asneeded for Allergies. 10 mL 12 EPINEPHrine, anaphylaxis, (EPI-PEN) 0.3 MG/0.3ML SOAJ injection For a severe reaction: Place orange end against the outer thigh, press firmly, hold in place for 10 seconds and go to the Emergencyroom. 2 Device 4 vitamins ( RX) 27-1 MG Tablet Take 1 Tab by mouth daily. loratadine ODT (CLARITIN REDITAB) 10 MG TBDP Take 1 tab daily for nasal allergy symptoms saline (OCEAN NASAL SPRAY) 0.65 % nasal spray Administer 1 [place] into nostril as needed for Congestion. albuterol (VENTOLIN HFA) 108 (90 BASE) MCG/ACT inhaler Inhale 2 Puffs by mouth every 4 hours asneeded for Cough, Shortness of Breath or Wheezing. 1 Inhaler 3 diphenhydrAMINE (BENADRYL) 25 MG Capsule Take 2 [...] Review of patient's allergies indicates: Allergen Reactions [place] (Diagnostic) Anaphylaxis Banana Edema airway Cat Dander Anaphylaxis [place] Pollen [Corylus] Anaphylaxis Peanut (Diagnostic) Anaphylaxis Sesame Seed (Diagnostic) Anaphylaxis Soy Allergy Anaphylaxis Max Oil Edema airway Wasp Venom Edema airway [...] floor and heart hardwood. 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 BP 104/64 | Pulse 66 | Temp (Src) 98.4 (Tympanic) | Resp 18 | Ht 5' 5" (1.651m) | Wt 222 lbs 3.2 oz(100.789kg) | BMI 36.98 kg/m | BSA 2.15 m PHYSICAL EXAM: GENERAL: No acute distress. [...] RRR; No gallops, rubs, clicks, or murmurs. LYMPHATIC: No significant adenopathy noted SKIN: No [...] to animal hair and dander J30.81 5. 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 Mild intermittent extrinsic asthma without complication J45.20 PLAN: Avoidance measures regarding pollens, molds, dust mites and animal danders should be continued. She has a longstanding history of significant allergic rhinitis/conjunctivitis symptoms. She will continue her oral antihistamine loratadine 10 mg daily, if worsening or more persistent symptoms noted especially with the pollen seasons she will add in OTC flonase. For intermittent episodes of chest tightness, shortness of breath, wheezing, albuterol 2 puffs every 4 hours as needed can be utilized. If worsening asthma despite this, she would follow up with her physicians acutely. She has resumed her allergy immunotherapy injections as of July and is building up toward maintenance dose. Mild large local reactions have been noted which are often prevented by her Claritin. She may use some ice and additional Benadryl as needed for worsening itching or swelling. Benadryl will not dry up her breast milk if used intermittently. I am not convinced her prolonged fatigue is due to her allergy immunotherapy administration and I have recommended follow up with her primary carephysicians for more thorough workup of chronic fatigue complaints which could be due to multiple causes. She continues avoidance of foods; almond, sunflower/sesame [...] Up: Return in about 6 months (around 05/26/2019), or if symptoms worsen or fail to improve. Valeriy Milton MD Allergy/Immunology (This note was completed using the dictation program Fluency Direct. As such, there may be misspellings, word substitutions, or other variations that should not change the essence of the clinical content of this encounter note.If there is need for further clarification, please direct questions to the provider listed above.) documented in this encounter Plan of Treatment Upcoming Encounters Date Type Specialty Care Team Description 03/04/2019 Office Visit Family Medicine Gab Smith, [address] [place] [address] 06/02/2019 Office Visit Allergy & Immunology Valeriy Milton MD [address] [place] [address] Health Maintenance Due Date Last Done [...] rhinitis due to animal hair and dander Pollen-food allergy syndrome, subsequent encounter Mild intermittent extrinsic asthma without complication documented in this encounter Advance Directives Patient has advance care planning documents, and code status on file. For more information, please contact: [place] [phone] Latest Code Status on File Code Status Date Activated Date Inactivated Comments Full Code 11/04/2013 2:29 AM 11/04/2013 9:58 PM This order reflects the patients wishes and were consensually agreed upon.
--- OUTSIDE RECORDS SUMMARY | 2023-04-16 16:24 | External Medical Summary | Summary of Care ---
Author Name Unknown Organization [place] [address] Care Team Providers Care Pick Up Driver Name Role Phone Vincent Santiago MD Primary Care Provide r Reason for Visit * Reason Comments Allergy Injection Encounter Details Date Type Department Care Team Description 10/03/2018 Immunization/In jection Allergy/Immunology [facility] [address] [place] [address] Park, Nurse Allergy [facility] [address] [place] [address] Allergic rhinitis, unspecified seasonality, unspecified trigger* Allergies Active Allergy Reactions Severity Noted Date Comments [place] (Diagnostic) Anaphylaxis High 05/21/2017 Banana Edema airway High 01/10/2017 Cat Dander Anaphylaxis High 05/21/2017 Corylus Anaphylaxis High 05/21/2017 Latex Rash Low 01/10/2017 Lac [place] Other (Please comment) 01/16/2017 Mouth tenderness. Peanut (Diagnostic) Anaphylaxis High 05/21/2017 Prednisone Psych complications 01/17/2017 agitation Sesame Seed (Diagnostic) Anaphylaxis High 05/21/2017 Soy Allergy Anaphylaxis High 01/16/2017 [place] Oil Edema airway High 01/10/2017 Wasp Venom Edema airway High 01/10/2017 documented as of this encounter (statuses as of 10/03/2018) Medications Medication Sig Dispensed Refills Start Date End Date Status Cranberry 250 MG CAPSIndications:arshid ing 500mg a day Take 1 Tab by mouth 2 times a day. Indications: taking 500mg a day 0 Active albuterol-ipratropi um (DUONEB) 2.5-0.5 MG/3ML nebulizer solution Inhale 3 mL by mouth every 6 hours as needed (wheezing). 60 Vial 5 01/15/2017 Active albuterol (VENTOLIN HFA) 108 (90 BASE) MCG/ACT inhaler Inhale 2 Puffs by mouth every 4 hours as needed for Cough, Shortness of Breath or Wheezing. 1 Inhaler 3 02/13/2017 Active diphenhydrAMINE (BENADRYL) 25 MG Capsule Take 2 capsules at onset suspected allergic reaction; may repeat every 4-6 hrs. as needed. 40 Cap 1 02/13/2017 Active PredniSONE (DELTASONE) 20 MG Tablet Take 2 tablets as a one time dose for significant mouth/thorat swelling 20 Tab 1 02/13/2017 Active saline (OCEAN NASAL SPRAY) 0.65 % nasal spray Administer 1 [place] into nostril as needed for Congestion. 0 [...] allergy symptoms 1 Inhaler 5 06/23/2018 Active documented as of this encounter (statuses as of 10/03/2018) Active Problems Problem Noted Date Pollen-food allergy [...] as of this encounter (statuses as of 10/03/2018) Resolved Problems Problem Noted Date Resolved Date Encounter for supervision of other normal pregna ncy 03/13/2011 09/11/2016 Overview: ICD-10 update of inactive term Acute bronchitis, complicated 02/25/2010 Asthma with severity to be determined 02/13/2017 Overview: ICD-10 update of inactive term documented as of this encounter (statuses as of 10/03/2018) Immunizations Name Dates Previously Given Next Due [...] Progress Notes * Lorene Dhaliwal LPN - 10/03/2018 1:00 PM EST Pre-injection Questionnaire Patient identified by [...] Encounters Date Type Specialty Care Team Description 10/07/2018 Office Visit Family Medicine Vincent Santiago MD [address] [facility] [place] [address] 11/24/2018 Office Visit Allergy & Immunology [facility] [address] Health Maintenance Due Date Last Done Comments PNEUMOCOCCAL 19-64 MEDIUM RI SK (1 of 1 - PPSV23) 2002 PAP SMEAR-EVERY 3 YRS,AGES 21-65 2004 *DEPRESSION SCREENING, ANNUA L FOR PTS 18 AND OVER 09/09/2014 Influenza Vaccine (FLU shot) (#1) 2018 DTaP,Tdap,and [...] For more information, please contact: [place] [phone] Latest Code Status on File Code Status Date Activated Date Inactivated Comments Full Code 11/04/2013 2:29 AM 11/04/2013 9:58 PM This order reflects the patients wishes and were consensually agreed upon.
--- OUTSIDE RECORDS SUMMARY | 2023-04-16 16:24 | External Medical Summary | Summary of Care ---
Author Name Unknown Organization [place] [address] Care Team Providers Care Talent Acquisition Coordinator Name Role Phone Gab Smith DO Primary Care Provider Reason for Visit * Reason Comments Allergy Return * Evaluate & Treat - Unlimited Visits (Within 10 days (routine)) Status Reason Specialty Diagnoses / Procedures Referred By Contact Referred To Contact Authorized Specialty Services Required Allergy & Immunology Diagnoses Seasonal allergic rhinitis due to pollen Gab Smith DO [address] [place] [address] Encounter Details Date Type Department Care Team Description 11/24/2018 Office Visit Allergy/Immunology [facility] [address] [place] [address] Valeriy Milton MD [address] [place] [address] Chronic seasonal allergic rhinitis due to pollen*; Allergic rhinitis due to dust; Chronic seasonal allergic rhinitis due to fungal spores; Non-seasonal allergic rhinitis due to animal hair and dander; Pollen-food allergy syndrome, subsequent encounter; Mild intermittent extrinsic asthma without complication Allergies Active Allergy Reactions Severity Noted Date Comments [place] (Diagnostic) Anaphylaxis High 05/21/2017 Banana Edema airway High 01/10/2017 Cat Dander Anaphylaxis High 05/21/2017 Corylus Anaphylaxis High 05/21/2017 Latex Rash Low 01/10/2017 [place] Other (Please comment) 01/16/2017 Mouth tenderness. Peanut (Diagnostic) Anaphylaxis High 05/21/2017 Prednisone Psych complications 01/17/2017 agitation Sesame Seed (Diagnostic) Anaphylaxis High 05/21/2017 Soy Allergy Anaphylaxis High 01/16/2017 [place] Oil Edema airway High 01/10/2017 Wasp Venom [...] SPRAY) 0.65 % nasal spray Administer 1 [place] into nostril as needed for Congestion. 0 [...] this encounter Patient Instructions * Patient Instructions* Valreiy Milton MD - 11/24/2018 6:26 PM EDT Pollen Avoidance Measures: Keep windows, doors closed; use air conditioning; dry clothes in vented dryer, not outside on clothesline; shower/bathe and change clothes right after outdoor activity; avoid outdoor activity during high pollen counts; use HEPA type air filtration system. Mold Avoidance Measures: Indoor: Clean moldy surfaces with a diluted bleach solution or a commercial molding room supervisor; fix waterleaks; reduce indoor humidity to <50% with dehumidifiers or air conditioning. Outdoor: Avoid uncut antonio, working with compost and soil, raking leaves and hay; keep windows anddoors closed; use air conditioning Dust Mite Avoidance Measures: Essential: Encase mattress, pillow, box springs in allergen-impermeable covers; wash bedding weeklyin hot water(>130 degreesF); reduce indoor humidity to <50%; dust weekly and run HEPA type vacuum building cleaner. Desirable: Remove carpets from bedroom and [...] SPRAY) 0.65 % nasal spray Administer 1 [place] into nostril as needed for Congestion. albuterol [...] Review of patient's allergies indicates: Allergen Reactions [place] (Diagnostic) Anaphylaxis Banana Edema airway Cat Dander Anaphylaxis [place] Pollen [Corylus] Anaphylaxis Peanut (Diagnostic) Anaphylaxis Sesame Seed (Diagnostic) Anaphylaxis Soy Allergy Anaphylaxis [place] Oil Edema airway Wasp Venom Edema airway [...] floor and heart hardwood. 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 BP [...] Office Visit Family Medicine Gab Smith, [address] [place] [address] 06/02/2019 Office Visit Allergy & Immunology Valeriy Milton MD [address] [place] [address] Health Maintenance Due Date Last Done [...] For more information, please contact: [place] [phone] Latest Code Status on File Code Status Date Activated Date Inactivated Comments Full Code 11/04/2013 2:29 AM 11/04/2013 9:58 PM This order reflects the patients wishes and were consensually agreed upon.
--- OUTSIDE RECORDS SUMMARY | 2023-04-16 16:24 | External Medical Summary | Summary of Care ---
Author Name Unknown Organization [place] [address] Care Team Providers Care Paper Cup Machine Operator Name Role Phone Vincent Santiago MD Primary Care Provide r Reason for Visit * Reason Comments Physical-Exam Multiple Complaints Encounter Details Date Type Department Care Team Description 10/07/2018 Office Visit Family Practice [facility] [address] [facility] [place] [address] Vincent Santiago MD [address] [facility] [place] [address] [phone] Physical exam, annual*; Anxiety Allergies Active Allergy Reactions Severity Noted Date Comments [place] (Diagnostic) Anaphylaxis High 05/21/2017 Banana Edema airway High 01/10/2017 Cat Dander Anaphylaxis High 05/21/2017 Corylus Anaphylaxis High 05/21/2017 Latex Rash Low 01/10/2017 Lac Bovis Other (Please comment) 01/16/2017 Mouth tenderness. Peanut (Diagnostic) Anaphylaxis High 05/21/2017 Prednisone Psych complications 01/17/2017 agitation Sesame Seed (Diagnostic) Anaphylaxis High 05/21/2017 Soy Allergy Anaphylaxis High 01/16/2017 [place] Oil Edema airway High 01/10/2017 Wasp Venom Edema airway High 01/10/2017 documented as of this encounter (statuses as of 10/07/2018) Medications Medication Sig Dispensed Refills Start Date [...] SPRAY) 0.65 % nasal spray Administer 1 [place] into nostril as needed for Congestion. 0 [...] as of this encounter (statuses as of 10/07/2018) Active Problems Problem Noted Date Pollen-food allergy [...] as of this encounter (statuses as of 10/07/2018) Resolved Problems Problem Noted Date Resolved Date Encounter for supervision of other normal pregna ncy 03/13/2011 09/11/2016 Overview: ICD-10 update of inactive term Acute bronchitis, complicated 02/25/2010 Asthma with severity to be determined 02/13/2017 Overview: ICD-10 update of inactive term documented as of this encounter (statuses as of 10/07/2018) Immunizations Name Dates Previously Given Next Due [...] Vital Sign Reading Time Taken Blood Pressure 110/80 10/07/2018 1:54 PM EST Pulse 58 10/07/2018 1:54 PM EST Temperature 36.4 C (97.6 F) 10/07/2018 1 :54 PM EST Respiratory Rate 16 10/07/2018 1:54 PM EST Oxygen Saturation - - Inhaled Oxygen Concentration - - Weight 102.1 kg (225 lb) 10/07/2018 1:5 4 PM EST Height - - Body Mass Index 37.44 10/07/2018 1:54 PM EST documented in this encounter Progress Notes * Vincent Santiago MD - 10/07/2018 2:06 PM EST 10/07/2018 Author: Vincent Santiago MD Assessment/Plan There are no discontinued medications. Pt is a 33 year old female here for the following problems/concerns: (Z00.00) Physical exam, annual (primary encounter diagnosis) Plan: Encouraged low fat diet and exercise. Trauma prevention. Calcium 600 mg once a day. Vitamin D 800 units once daily Avoid tobacco Seat beat use encouraged Smoke detector use encouraged. (F41.9) Anxiety Plan: suggested dr cheung Pt will think about this option RTC 1yr or prn Patient and or guardian communicated understanding and agreement of treatment plan including medications and there common side effects if indicated. All questions answered. CC/HPI: Regina Duncan is a 33 year old female Chief Complaint Patient presents with Physical-Exam Multiple Complaints Brief Clinical History Ms. Duncan is a 33 year old woman last seen in Family Medicine 1 year ago (06-20-17). She is not due for eval of any conditions. Here for PE H/o calcium oxalate stones Has 6 month old Pt is nursing Some sleep deprivation Some dizziness Acid reflux is returning 25 lbs wt gain Nursing Notes: Leanna Livingston, CORINNE 10/07/18 1358 Signed Here for multiple issues to discuss vitamins, has spells off and on of feeling dizzy, and weight issues, has nausea and happens off and on and GERD has returned. Is getting allergy shots and is nursing and not sure what to do about taking meds. 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 albuterol [...] a day. Indications: taking 500mg a day Allergies: [place] (diagnostic); Banana; Cat dander; [place] tree pollen [corylus]; Peanut (diagnostic); Sesame seed (diagnostic); Soy allergy; [place] oil; Wasp venom; Milk [lac bovis]; Prednisone; and Latex Problem list, Past Medical History, Family history and social history reviewed and updated in [facility] EHR ROS: No nausea, vomiting or diarrhea. No chest pain or shortness of breath, No fatigue. No fevers, chillor night sweats. All other ROS examined in detail and are negative except as documented in HPI. s Vitals: BP 110/80 | Pulse 58 | Temp (Src) 97.6 (Tympanic) | Resp 16 | Wt 225 lbs (102.059kg) | BMI 37.44 kg/m | BSA 2.16 m BMI: 37.44 kg/m Exam: General: alert, healthy and no distress Head: Normocephalic, No masses, lesions, tenderness or abnormalities Eye Exam: PERRLA, EOMI, Conjunctiva are pink and non-injected, fundi benign, sclera clear Ears: External ears normal, Canals clear, TM's Normal Nose: no mucosal erythema, no mucosal edema, no purulent discharge, no septal hematoma Oropharynx: no exudate, no erythema, lips, buccal mucosa, and tongue normal and dentition normal Neck: supple, no adenopathy, thyroid normal size, non-tender, without nodularity, trachea midline Heart: regular rate & rhythm, no murmurs and no gallops Lungs: chest symmetric with normal AP diameter, no chest deformities noted, no chest wall tenderness, lungs clear to auscultation Abdomen: abdomen soft, non-tender, no masses, no hepatosplenomegaly, no rebound or guarding Extremities: no edema, no clubbing, no cyanosis Neuro Exam: alert & oriented x 3 with fluent speech, no focal motor/sensory deficits, gait normal, reflexes normal and symmetric Assessment and plan located at the top of the page documented in this encounter Nursing Notes * Leanna Livingston LPN - 10/07/2018 1:45 PM EST Here for multiple issues to discuss vitamins, has spells off and on of feeling dizzy, and weight issues, has nausea and happens off and on and GERD has returned. Is getting allergy shots and is nursing and not sure what to do about taking meds. documented in this encounter Plan of Treatment Upcoming Encounters Date Type Specialty Care Team Description 11/24/2018 Office Visit Allergy & Immunology Valeriy Milton MD [address] [place] [id number] Health Maintenance Due Date Last Done Comments PNEUMOCOCCAL 19-64 MEDIUM RI SK (1 of 1 - PPSV23) 2002 PAP SMEAR-EVERY 3 YRS,AGES 21-65 2004 *DEPRESSION SCREENING, JENA Brown FOR PTS 18 AND OVER 09/09/2014 Influenza Vaccine (FLU shot) (#1) 2018 DTaP,Tdap,and Td Vaccines (3 - Td) 01/30/2019 01/30/2009, 02/10/1998 MENINGOCOCCAL (MENACTRA) Aged Out No longer eligible based on patient's age to complete this topic documented as of this encounter Implants Not on filedocumented as of this encounter Visit Diagnoses Diagnosis Physical exam, annual- Primary Routine general medical examination at a health care facility Anxiety Anxiety state, unspecified documented in this encounter Advance Directives Patient has advance care planning documents, and code status on file. For more information, please contact: [place] [phone] Latest Code Status on File Code Status Date Activated Date Inactivated Comments Full Code 11/04/2013 2:29 AM 11/04/2013 9:58 PM This order reflects the patients wishes and were consensually agreed upon."
--- OUTSIDE RECORDS SUMMARY | 2023-04-16 16:24 | External Medical Summary | Summary of Care ---
Author Name Unknown Organization [place] [address] Care Team Providers Care Electronics Engineering Manager Name Role Phone Gab Cuevas DO Primary Care Provider Reason for Referral * Evaluate & Treat - Unlimited Visits (Within 10 days (routine)) Status Reason Specialty Diagnoses / Procedures Referred By Contact Referred To Contact Authorized Specialty Services Required Allergy & Immunology Diagnoses Seasonal allergic rhinitis due to pollen Gab Cuevas DO [address] [place] [address] Reason for Visit * Reason Comments Referral Requested by Specialist Encounter Details Date Type Department Care Team Description 11/19/2018 Telephone Family Practice [facility] [address] [place] [address] Gab Cuevas DO [address] [facility] [place] [address] [phone] Referral Requested by Specialist Allergies Active Allergy Reactions Severity Noted Date Comments [place] (Diagnostic) Anaphylaxis High 05/21/2017 Banana Edema airway High 01/10/2017 Cat Dander Anaphylaxis High 05/21/2017 Corylus Anaphylaxis High 05/21/2017 Latex Rash Low 01/10/2017 Lac Bovis Other (Please comment) 01/16/2017 Mouth tenderness. Peanut (Diagnostic) Anaphylaxis High 05/21/2017 Prednisone Psych complications 01/17/2017 agitation Sesame Seed (Diagnostic) Anaphylaxis High 05/21/2017 Soy Allergy Anaphylaxis High 01/16/2017 [place] Oil Edema airway High 01/10/2017 Wasp Venom Edema airway High 01/10/2017 documented as of this encounter (statuses as of 11/19/2018) Medications Medication Sig Dispensed Refills Start Date [...] SPRAY) 0.65 % nasal spray Administer 1 [place] into nostril as needed for Congestion. 0 [...] as of this encounter (statuses as of 11/19/2018) Active Problems Problem Noted Date Pollen-food allergy [...] as of this encounter (statuses as of 11/19/2018) Resolved Problems Problem Noted Date Resolved Date Encounter for supervision of other normal pregna ncy 03/13/2011 09/11/2016 Overview: ICD-10 update of inactive term Acute bronchitis, complicated 02/25/2010 Asthma with severity to be determined 02/13/2017 Overview: ICD-10 update of inactive term documented as of this encounter (statuses as of 11/19/2018) Immunizations Name Dates Previously Given Next Due [...] Miscellaneous Notes * Telephone Encounter - Gab Cuevas DO - 11/19/2018 6:57 PM EDT Referral to metallurgist process authorized as requested * Telephone Encounter - Génesis Morrell OSA - 11/19/2018 4:01 PM EDT New referral request: Our records indicate that you have an upcoming appointment and a referral is required for this visit. Please review pended referral for the following: Patient Name: Regina Duncan Patient Primary care provider: Gab Cuevas DO Name of preferred specialist: Dr. Milton Type of specialist: Allergy Location of specialist: [facility] Specialist's Phone # : Specialist's Fax #: Reason for visit: 6 month return- Allergic Rhinitis Date of visit: 11-24-2018 documented in this encounter Plan of Treatment Upcoming Encounters Date Type Specialty Care Team Description 11/24/2018 Office Visit Allergy & Immunology Valeriy Milton MD [address] [place] [address] 03/04/2019 Office Visit Family Medicine Gab Cuevas DO 132 [facility] [place] [address] [phone] Scheduled Referrals Name Priority Associated Diagnoses Order S chedule ALLERGY REFERRAL OP Within 10 days (routine) Seasonal allergic rhinitis due to pollen Ordered: 11/19/2018 Health Maintenance Due Date Last Done Comments [...] as of this encounter Visit Diagnoses Diagnosis Seasonal allergic rhinitis due to pollen- Primary documented in this encounter Advance Directives Patient has advance care planning documents, and code status on file. For more information, please contact: [place] [phone] Latest Code Status on File Code Status Date Activated Date Inactivated Comments Full Code 11/04/2013 2:29 AM 11/04/2013 9:58 PM This order reflects the patients wishes and were consensually agreed upon.
--- OUTSIDE RECORDS SUMMARY | 2023-04-16 16:24 | External Medical Summary | Summary of Care ---
Author Name Unknown Organization [place] [address] Care Team Providers Care Rigging Supervisor Name Role Phone Vincent Santiago MD Primary Care Provide r Reason for Visit * Reason Comments Allergy Injection Encounter Details Date Type Department Care Team Description 10/31/2018 Immunization/In jection Allergy/Immunology [facility] [address] [place] [address] [place], Nurse Allergy [facility] [address] [place] [address] Allergic rhinitis, unspecified seasonality, unspecified trigger* Allergies Active Allergy Reactions Severity Noted Date Comments [place] (Diagnostic) Anaphylaxis High 05/21/2017 Banana Edema airway High 01/10/2017 Cat Dander Anaphylaxis High 05/21/2017 Corylus Anaphylaxis High 05/21/2017 Latex Rash Low 01/10/2017 Lac Bovis Other (Please comment) 01/16/2017 Mouth tenderness. Peanut (Diagnostic) Anaphylaxis High 05/21/2017 Prednisone Psych complications 01/17/2017 agitation Sesame Seed (Diagnostic) Anaphylaxis High 05/21/2017 Soy Allergy Anaphylaxis High 01/16/2017 [place] Oil Edema airway High 01/10/2017 Wasp Venom Edema airway High 01/10/2017 documented as of this encounter (statuses as of 10/31/2018) Medications Medication Sig Dispensed Refills Start Date [...] SPRAY) 0.65 % nasal spray Administer 1 [place] into nostril as needed for Congestion. 0 [...] as of this encounter (statuses as of 10/31/2018) Active Problems Problem Noted Date Pollen-food allergy [...] as of this encounter (statuses as of 10/31/2018) Resolved Problems Problem Noted Date Resolved Date Encounter for supervision of other normal pregna ncy 03/13/2011 09/11/2016 Overview: ICD-10 update of inactive term Acute bronchitis, complicated 02/25/2010 Asthma with severity to be determined 02/13/2017 Overview: ICD-10 update of inactive term documented as of this encounter (statuses as of 10/31/2018) Immunizations Name Dates Previously Given Next Due [...] Progress Notes * Lorene Dhaliwal LPN - 10/31/2018 12:31 PM EDT Pre-injection Questionnaire Patient identified by [...] flu-like symptoms in the past week? Yes, stomach virus but better 4. Did you have any increased allergy or asthma symptoms, hives, generalized itching within 12 hours of receiving your last injection or swelling that persisted in the next day? Yes swelling lasted aday or 2 5. Are you on any new medications [...] Allergy & Immunology Valeriy Milton MD [address] [facility] [place] [address] Health Maintenance Due Date Last Done [...] For more information, please contact: [place] [phone] Latest Code Status on File Code Status Date Activated Date Inactivated Comments Full Code 11/04/2013 2:29 AM 11/04/2013 9:58 PM This order reflects the patients wishes and were consensually agreed upon.
--- OUTSIDE RECORDS SUMMARY | 2023-04-16 16:24 | External Medical Summary | Summary of Care ---
Author Name Unknown Organization [place] [address] Care Team Providers Care Hot Tamale Worker Name Role Phone Vincent Santiago MD Primary Care Provide r Reason for Visit * Reason Comments Allergy Injection Encounter Details Date Type Department Care Team Description 10/14/2018 Immunization/In jection Allergy/Immunology [facility] [address] [place] [address] [place], Nurse Allergy [facility] [address] [place] [address] Allergic rhinitis, unspecified seasonality, unspecified trigger* Allergies Active Allergy Reactions Severity Noted Date Comments [place] (Diagnostic) Anaphylaxis High 05/21/2017 Banana Edema airway High 01/10/2017 Cat Dander Anaphylaxis High 05/21/2017 Corylus Anaphylaxis High 05/21/2017 Latex Rash Low 01/10/2017 Lac Bovis Other (Please comment) 01/16/2017 Mouth tenderness. Peanut (Diagnostic) Anaphylaxis High 05/21/2017 Prednisone Psych complications 01/17/2017 agitation Sesame Seed (Diagnostic) Anaphylaxis High 05/21/2017 Soy Allergy Anaphylaxis High 01/16/2017 [place] Oil Edema airway High 01/10/2017 Wasp Venom Edema airway High 01/10/2017 documented as of this encounter (statuses as of 10/14/2018) Medications Medication Sig Dispensed Refills Start Date [...] SPRAY) 0.65 % nasal spray Administer 1 [place] into nostril as needed for Congestion. 0 [...] as of this encounter (statuses as of 10/14/2018) Active Problems Problem Noted Date Pollen-food allergy [...] as of this encounter (statuses as of 10/14/2018) Resolved Problems Problem Noted Date Resolved Date Encounter for supervision of other normal pregna ncy 03/13/2011 09/11/2016 Overview: ICD-10 update of inactive term Acute bronchitis, complicated 02/25/2010 Asthma with severity to be determined 02/13/2017 Overview: ICD-10 update of inactive term documented as of this encounter (statuses as of 10/14/2018) Immunizations Name Dates Previously Given Next Due [...] Progress Notes * Liz Cr RN - 10/14/2018 12:36 PM EST Pre-injection Questionnaire Patient identified by [...] Encounters Date Type Specialty Care Team Description 10/14/2018 Immunization/Inj ection Allergy & Immunology [place], Nurse Allergy [facility] [address] [place] [address] Allergic rhinitis, unspecified seasonality, unspecified trigger* 11/24/2018 Office Visit Allergy & Immunology Valeriy Milton MD [address] [place] [address] Health Maintenance Due Date Last Done Comments [...] For more information, please contact: [place] [phone] Latest Code Status on File Code Status Date Activated Date Inactivated Comments Full Code 11/04/2013 2:29 AM 11/04/2013 9:58 PM This order reflects the patients wishes and were consensually agreed upon.
--- OUTSIDE RECORDS SUMMARY | 2023-04-16 16:24 | External Medical Summary | Summary of Care ---
Author Name Unknown Organization [place] [address] Care Team Providers Care Software Project Lead Name Role Phone Vincent Santiago MD Primary Care Provide r Reason for Visit * Reason Comments Allergy Injection Encounter Details Date Type Department Care Team Description 11/07/2018 Immunization/In jection Allergy/Immunology [facility] [address] [place] [address] [place], Nurse Allergy [facility] [address] [place] [address] Allergic rhinitis, unspecified seasonality, unspecified trigger* Allergies Active Allergy Reactions Severity Noted Date Comments [place] (Diagnostic) Anaphylaxis High 05/21/2017 Banana Edema airway High 01/10/2017 Cat Dander Anaphylaxis High 05/21/2017 Corylus Anaphylaxis High 05/21/2017 Latex Rash Low 01/10/2017 Lac Bovis Other (Please comment) 01/16/2017 Mouth tenderness. Peanut (Diagnostic) Anaphylaxis High 05/21/2017 Prednisone Psych complications 01/17/2017 agitation Sesame Seed (Diagnostic) Anaphylaxis High 05/21/2017 Soy Allergy Anaphylaxis High 01/16/2017 [place] Oil Edema airway High 01/10/2017 Wasp Venom Edema airway High 01/10/2017 documented as of this encounter (statuses as of 11/07/2018) Medications Medication Sig Dispensed Refills Start Date [...] SPRAY) 0.65 % nasal spray Administer 1 [place] into nostril as needed for Congestion. 0 [...] as of this encounter (statuses as of 11/07/2018) Active Problems Problem Noted Date Pollen-food allergy [...] as of this encounter (statuses as of 11/07/2018) Resolved Problems Problem Noted Date Resolved Date Encounter for supervision of other normal pregna ncy 03/13/2011 09/11/2016 Overview: ICD-10 update of inactive term Acute bronchitis, complicated 02/25/2010 Asthma with severity to be determined 02/13/2017 Overview: ICD-10 update of inactive term documented as of this encounter (statuses as of 11/07/2018) Immunizations Name Dates Previously Given Next Due [...] Progress Notes * Lorene Dhaliwal LPN - 11/07/2018 12:26 PM EDT Pre-injection Questionnaire Patient identified [...] Allergy & Immunology Valeriy Milton MD [address] [place] [address] Health Maintenance Due Date Last Done Comments [...] For more information, please contact: [place] [phone] Latest Code Status on File Code Status Date Activated Date Inactivated Comments Full Code 11/04/2013 2:29 AM 11/04/2013 9:58 PM This order reflects the patients wishes and were consensually agreed upon.
--- OUTSIDE RECORDS SUMMARY | 2023-04-16 16:24 | External Medical Summary | Summary of Care ---
Author Name Unknown Organization [place] [address] Care Team Providers Care Sports Specialist Name Role Phone Vincent Santiago MD Primary Care Provide r Reason for Visit * Reason Comments Advice Encounter Details Date Type Department Care Team Description 10/31/2018 Telephone Family Practice [facility] [address] [facility] MD [address] [place] [address] Advice Allergies Active Allergy Reactions Severity Noted Date Comments [place] (Diagnostic) Anaphylaxis High 05/21/2017 Banana Edema airway High 01/10/2017 Cat Dander Anaphylaxis High 05/21/2017 Corylus Anaphylaxis High 05/21/2017 Latex Rash Low 01/10/2017 Lac Bovis Other (Please comment) 01/16/2017 Mouth tenderness. Peanut (Diagnostic) Anaphylaxis High 05/21/2017 Prednisone Psych complications 01/17/2017 agitation Sesame Seed (Diagnostic) Anaphylaxis High 05/21/2017 Soy Allergy Anaphylaxis High 01/16/2017 [place] Oil Edema airway High 01/10/2017 Wasp Venom [...] SPRAY) 0.65 % nasal spray Administer 1 [place] into nostril as needed for Congestion. 0 [...] encounter Miscellaneous Notes * Telephone Encounter - Fartun Marte RP - 10/31/2018 9:36 AM EDT Advised pt to take her claritin 1 hour before her shots [as she has been doing in the past]. She was concerned because she took claritin yesterday afternoon. Instructed her another dose today will not be harmful. Thanks, Fartun Moreno, PharmD Staff Pharmacist Pharmacy Refill Call Center [phone] ext [phone] 10/31/2018,9:41 AM * Telephone Encounter - Chelsea Pablo PHARM Tech - 10/31/2018 9:27 AM EDT Pt states before she gets her allergy shot she is instructed to take an Antihistamine. She took this last night and was told that She can only get the injection until 12:30 today. Pt states she is basically allergic to everything and was told if she has a reaction to take Benadryl, but she is nursing and does not want to dry up her milk and also not pass on any Bendryl to her baby. She is not sure what to do at this point and is looking for some advice. Warm transferred patient to pharmacist Fartun. Thanks, Chelsea Pablo Power Plant Mechanic Pharmacy Refill Call Center 10/31/2018, 9:33 AM documented in this encounter Plan of Treatment Upcoming Encounters Date Type Specialty Care Team Description 11/24/2018 Office Visit Allergy & Immunology Valeriy Milton MD [address] [place] [address] Health Maintenance Due Date Last Done Comments [...] filedocumented as of this encounter Advance Directives Patient has advance care planning documents, and code status on file. For more information, please contact: [place] [phone] Latest Code Status on File Code Status Date Activated Date Inactivated Comments Full Code 11/04/2013 2:29 AM 11/04/2013 9:58 PM This order reflects the patients wishes and were consensually agreed upon.
--- OUTSIDE RECORDS SUMMARY | 2023-04-16 16:24 | External Medical Summary | Summary of Care ---
Author Name Unknown Organization [place] [address] Care Team Providers Care Carry Out Clerk And Shelf Stocker Name Role Phone LuisGab dash Primary Care Provider Reason for Visit * Reason Comments Allergy Injection Encounter Details Date Type Department Care Team Description 11/14/2018 Immunization/In jection Allergy/Immunology [facility] [address] [place] [address] Park, Nurse Allergy Scenery [address] [place], [place] [id number] Allergic rhinitis, unspecified seasonality, unspecified trigger* Allergies Active Allergy Reactions Severity Noted Date Comments [place] (Diagnostic) Anaphylaxis High 05/21/2017 Banana Edema airway High 01/10/2017 Cat Dander Anaphylaxis High 05/21/2017 Corylus Anaphylaxis High 05/21/2017 Latex Rash Low 01/10/2017 Lac Bovis Other (Please comment) 01/16/2017 Mouth tenderness. Peanut (Diagnostic) Anaphylaxis High 05/21/2017 Prednisone Psych complications 01/17/2017 agitation Sesame Seed (Diagnostic) Anaphylaxis High 05/21/2017 Soy Allergy Anaphylaxis High 01/16/2017 [place] Oil Edema airway High 01/10/2017 Wasp Venom Edema airway High 01/10/2017 documented as of this encounter (statuses as of 11/14/2018) Medications Medication Sig Dispensed Refills Start Date [...] as of this encounter (statuses as of 11/14/2018) Active Problems Problem Noted Date Pollen-food allergy [...] as of this encounter (statuses as of 11/14/2018) Resolved Problems Problem Noted Date Resolved Date Encounter for supervision of other normal pregna ncy 03/13/2011 09/11/2016 Overview: ICD-10 update of inactive term Acute bronchitis, complicated 02/25/2010 Asthma with severity to be determined 02/13/2017 Overview: ICD-10 update of inactive term documented as of this encounter (statuses as of 11/14/2018) Immunizations Name Dates Previously Given Next Due [...] Progress Notes * Liz Cr RN - 11/14/2018 12:22 PM EDT Pre-injection Questionnaire Patient identified by stating name and birthdate: Yes 1. Antihistamines taken prior to injection? Yes (If no, may offer the patient Benadryl [...] & Immunology Valeriy Milton MD [address] [facility] [place] [address] 03/04/2019 Office Visit Family Medicine Gab Smith DO [address] [facility] [place] [address] [phone] Health Maintenance Due Date Last Done Comments [...] For more information, please contact: [place] [phone] Latest Code Status on File Code Status Date Activated Date Inactivated Comments Full Code 11/04/2013 2:29 AM 11/04/2013 9:58 PM This order reflects the patients wishes and were consensually agreed upon.
--- OUTSIDE RECORDS SUMMARY | 2023-04-16 16:24 | External Medical Summary | Summary of Care ---
Author Name Unknown Organization [place] [address] Care Team Providers Care Records Supervisor Name Role Phone Vincent Santiago MD Primary Care Provide r Reason for Visit * Reason Comments Allergy Injection Encounter Details Date Type Department Care Team Description 10/07/2018 Immunization/In jection Allergy/Immunology [facility] [address] [place] [address] Park, Nurse Allergy [facility] [address] [place] [address] Allergic rhinitis, unspecified seasonality, unspecified trigger* Allergies Active Allergy Reactions Severity Noted Date Comments [place] (Diagnostic) Anaphylaxis High 05/21/2017 Banana Edema airway High 01/10/2017 Cat Dander Anaphylaxis High 05/21/2017 Corylus Anaphylaxis High 05/21/2017 Latex Rash Low 01/10/2017 Lac Bovis Other (Please comment) 01/16/2017 Mouth tenderness. Peanut (Diagnostic) Anaphylaxis High 05/21/2017 Prednisone Psych complications 01/17/2017 agitation Sesame Seed (Diagnostic) Anaphylaxis High 05/21/2017 Soy Allergy Anaphylaxis High 01/16/2017 [place] Oil Edema airway High 01/10/2017 Wasp Venom [...] SPRAY) 0.65 % nasal spray Administer 1 [place] into nostril as needed for Congestion. 0 [...] Progress Notes * Lorene Dhaliwal LPN - 10/07/2018 4:28 PM EST Pre-injection Questionnaire Patient identified by [...] & Immunology Valeriy Milton MD [address] [facility] [place] [address] Health Maintenance Due Date Last [...] For more information, please contact: [place] [phone] Latest Code Status on File Code Status Date Activated Date Inactivated Comments Full Code 11/04/2013 2:29 AM 11/04/2013 9:58 PM This order reflects the patients wishes and were consensually agreed upon.
--- OUTSIDE RECORDS SUMMARY | 2023-04-16 16:24 | External Medical Summary | Summary of Care ---
Author Name Unknown Organization [place] [address] Care Team Providers Care Crepe Laminator Operator Name Role Phone Gab Smith DO Primary Care Provider Reason for Visit * Reason Comments Allergy Injection Encounter Details Date Type Department Care Team Description 01/08/2019 Immunization/In jection Allergy/Immunology [facility] [address] [place] [address] Park, Nurse Allergy Scenery [address] [place], [place] [phone] Allergic rhinitis, unspecified seasonality, unspecified trigger* Allergies Active Allergy Reactions Severity Noted Date Comments [place] (Diagnostic) Anaphylaxis High 05/21/2017 Banana Edema airway High 01/10/2017 Cat Dander Anaphylaxis High 05/21/2017 Corylus Anaphylaxis High 05/21/2017 Latex Rash Low 01/10/2017 Lac Bovis Other (Please comment) 01/16/2017 Mouth tenderness. Peanut (Diagnostic) Anaphylaxis High 05/21/2017 Prednisone Psych complications 01/17/2017 agitation Sesame Seed (Diagnostic) Anaphylaxis High 05/21/2017 Soy Allergy Anaphylaxis High 01/16/2017 [place] Oil Edema airway High 01/10/2017 Wasp Venom Edema airway High 01/10/2017 documented as of this encounter (statuses as of 01/08/2019) Medications Medication Sig Dispensed Refills Start Date [...] SPRAY) 0.65 % nasal spray Administer 1 [place] into nostril as needed for Congestion. 0 [...] as of this encounter (statuses as of 01/08/2019) Active Problems Problem Noted Date Pollen-food allergy [...] as of this encounter (statuses as of 01/08/2019) Resolved Problems Problem Noted Date Resolved Date Encounter for supervision of other normal pregna ncy 03/13/2011 09/11/2016 Overview: ICD-10 update of inactive term Acute bronchitis, complicated 02/25/2010 Asthma with severity to be determined 02/13/2017 Overview: ICD-10 update of inactive term documented as of this encounter (statuses as of 01/08/2019) Immunizations Name Administration Dates Next Due Diptheria/Tetanus [...] Progress Notes * Liz Cr RN - 01/08/2019 4:24 PM EDT Pre-injection Questionnaire Patient identified by [...] [facility] [address] [facility]2019 Office Visit Allergy & Immunology Valeriy Milton MD [address] [place] [address] Health Maintenance Due Date Last Done [...] Documents on File Type Date Recorded Patient Trench Digger Expl 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
--- OUTSIDE RECORDS SUMMARY | 2023-04-16 16:24 | External Medical Summary | Summary of Care ---
Author Name Unknown Organization [place] [address] Care Team Providers Care Senior Policy Analyst Name Role Phone LuisGab dash Primary Care Provider [phone] Reason for Visit * Reason Comments Allergy Injection Encounter Details Date Type Department Care Team Description 01/02/2019 Immunization/In jection Allergy/Immunology [facility] [address] [place] [address] Park, Nurse Allergy Scenery [address] [place], [place] [phone] Allergic rhinitis, unspecified seasonality, unspecified trigger* Allergies Active Allergy Reactions Severity Noted Date Comments [place] (Diagnostic) Anaphylaxis High 05/21/2017 Banana Edema airway High 01/10/2017 Cat Dander Anaphylaxis High 05/21/2017 Corylus Anaphylaxis High 05/21/2017 Latex Rash Low 01/10/2017 Lac Bovis Other (Please comment) 01/16/2017 Mouth tenderness. Peanut (Diagnostic) Anaphylaxis High 05/21/2017 Prednisone Psych complications 01/17/2017 agitation Sesame Seed (Diagnostic) Anaphylaxis High 05/21/2017 Soy Allergy Anaphylaxis High 01/16/2017 [place] Oil Edema airway High 01/10/2017 Wasp Venom Edema airway High 01/10/2017 documented as of this encounter (statuses as of 01/02/2019) Medications Medication Sig Dispensed Refills Start Date [...] as of this encounter (statuses as of 01/02/2019) Active Problems Problem Noted Date Pollen-food allergy [...] as of this encounter (statuses as of 01/02/2019) Resolved Problems Problem Noted Date Resolved Date Encounter for supervision of other normal pregna ncy 03/13/2011 09/11/2016 Overview: ICD-10 update of inactive term Acute bronchitis, complicated 02/25/2010 Asthma with severity to be determined 02/13/2017 Overview: ICD-10 update of inactive term documented as of this encounter (statuses as of 01/02/2019) Immunizations Name Dates Previously Given Next Due [...] Progress Notes * Lorene Dhaliwal LPN - 01/02/2019 12:43 PM EDT Pre-injection Questionnaire Patient identified by [...] Office Visit Family Medicine Gab Smith, [address] [facility] [place] [address] 06/02/2019 Office Visit Allergy & Immun[facility] [address] Health Maintenance Due Date Last [...] For more information, please contact: [place] [phone] Latest Code Status on File Code Status Date Activated Date Inactivated Comments Full Code 11/04/2013 2:29 AM 11/04/2013 9:58 PM This order reflects the patients wishes and were consensually agreed upon.
--- OUTSIDE RECORDS SUMMARY | 2023-04-16 16:25 | External Medical Summary | Summary of Care ---
Author Name Unknown Organization [facility] [address] Phone Care Team Providers Care Silver Holloware Assembler Name Role Phone Vincent Santiago MD Primary Care Provide r Encounter Details Date Type Department Care Team Description 12/19/[address] [facility] [address] [place] [address] Vincent Santiago MD [address] [place] [address] [phone] Allergies Active Allergy Reactions Severity Noted Date Comments [place] (Diagnostic) Anaphylaxis High 05/21/2017 Banana Edema airway High 01/10/2017 Cat Dander Anaphylaxis High 05/21/2017 Corylus Anaphylaxis High 05/21/2017 Peanut (Diagnostic) Anaphylaxis High 05/21/2017 Sesame Seed (Diagnostic) Anaphylaxis High 05/21/2017 Soy Allergy Anaphylaxis High 01/16/2017 [place] Oil Edema airway High 01/10/2017 Wasp Venom Edema airway High 01/10/2017 Lac Bovis Other (Please comment) 01/16/2017 Mouth tenderness. Prednisone Psych complications 01/17/2017 agitation Latex Rash Low 01/10/2017 as of this encounter Medications Prescription Sig. Disp. Refills Start Date End Date Status Cranberry 250 MG CAPSIndications:taki ng 500mg a day Take 1 Tab by mouth 2 times a day. Indications: taking 500mg a day Active albuterol-ipratropiu m (DUONEB) 2.5-0.5 MG/3ML nebulizer [...] [place] into nostril as needed for Congestion. Active B Complex-C (SUPER B COMPLEX/VITAMIN C) TABS Take by mouth. Active loratadine ODT (CLARITIN REDITAB) 10 MG TBDP Take 1 tab daily for nasal allergy symptoms 09/04/2017 Active vitamins ( RX) 27-1 MG Tablet Take 1 Tab by mouth daily. Active EPINEPHrine, anaphylaxis, (EPI-PEN) 0.3 MG/0.3ML SOAJ injectionIndications :Allergic reaction, initial encounter For a severe reaction: Place orange end against the outer thigh, press firmly, hold in place for 10 seconds and go to the Emergency room. 2 Device 4 11/27/2017 Active budesonide (RHINOCORT AQUA) 32 MCG/ACT nasal spray Administer 2 Sprays into each nostril daily. Use for worsening or more persistent nasal allergy symptoms 1 Bottle 11 11/27/2017 Active as of this encounter Active Problems Problem Noted Date Pollen-food allergy [...] ICD-10 update of inactive term Esophageal reflux Currently Estimated Date of Delivery Co mments Yes as of this encounter Resolved Problems Problem Noted Date Resolved Date Encounter for supervision of other normal pregna ncy 03/13/2011 09/11/2016 Overview: ICD-10 update of inactive term Acute bronchitis, complicated 02/25/2010 Asthma with severity to be determined 02/13/2017 Overview: ICD-10 update of inactive term as of this encounter Immunizations Name Dates Previously Given Next Due Diptheria/Tetanus (Adult) 02/10/19982007 HEP A - Hepatitis A (Ped/Adole, 2-18 Yrs) 1999,06/12/1999 HEP B - Hepatitis B (Adole/High Risk Ped, 11-15 yrs 06/12/1999 07/13/1999 Hepatitis B, 0-19 yrs 04/24/2000 05/24/2000 MMR - Measles/Mumps/Rubella Vaccine 03/08/1995 PPD 11/21/2007,06/04/2001 TB Felicitas Test 07/01/1998 TDAP (age 10 and older)(Boostrix) 01/30/2009 as of this encounter Social History Tobacco Use Types Packs/Day Years Used Date Never Smoker Smokeless Tobacco: Never Used Alcohol Use Drinks/Week oz/Week Comments No Currently Estimated Date of Delivery Co mments Yes Sex Assigned at Date Recorded Not on file as of this encounter Plan of Treatment Upcoming Encounters Date Type Specialty Care Team Description 03/19/2018 Office Visit Allergy & Immunology Valeriy Milton MD [address] [place] [address] [phone] Pending Results Name Priority Associated Diagnoses Date/Ti me CHEMISTRY-OUTSIDE Routine 12/18/2017 12:00 AM EDT Health Maintenance Due Date Last Done Comments PNEUMOCOCCAL 19-64 MEDIUM RI SK (1 of 1 - PPSV23) 2002 PAP SMEAR-EVERY 3 YRS,AGES 21-65 2004 *ASTHMA ACTION PLAN-ADULT YEARLY 08/11/2014 *DEPRESSION SCREENING, JENA Brown FOR PTS 18 AND OVER 09/09/2014 Influenza Vaccine (FLU shot) (Season Ended) 2018 DTaP,Tdap,and Td Vaccines (3 - Td) 01/30/20192008, 02/10/1998 as of this encounter Implants Not on fileas of this encounter Insurance Payer Benefit Plan / Group Subscriber ID Type Phone Address [facility] [id number] [phone] [facility] [place] [phone] as of this encounter
--- OUTSIDE RECORDS SUMMARY | 2023-04-16 16:25 | External Medical Summary | Summary of Care ---
Author Name Unknown Organization [place] [address] Care Team Providers Care Fan Blade Truer Name Role Phone Vincent Santiago MD Primary Care Provide r Reason for Visit * Reason Comments Allergy Injection Encounter Details Date Type Department Care Team Description 09/11/2018 Immunization/Injec tion Allergy/Immunology [facility] [address] [place] [address] Park, Nurse Allergy Scenery [address] [place] [address] Arrived Allergies Active Allergy Reactions Severity Noted Date Comments [place] (Diagnostic) Anaphylaxis High 05/21/2017 Banana Edema airway High 01/10/2017 Cat Dander Anaphylaxis High 05/21/2017 Corylus Anaphylaxis High 05/21/2017 Latex Rash Low 01/10/2017 Lac Bovis Other (Please comment) 01/16/2017 Mouth tenderness. Peanut (Diagnostic) Anaphylaxis High 05/21/2017 Prednisone Psych complications 01/17/2017 agitation Sesame Seed (Diagnostic) Anaphylaxis High 05/21/2017 Soy Allergy Anaphylaxis High 01/16/2017 [place] Oil Edema airway High 01/10/2017 Wasp Venom Edema airway High 01/10/2017 documented as of this encounter (statuses as of 09/11/2018) Medications Medication Sig Dispensed Refills Start Date [...] 0.65 % nasal spray Administer 1 [place] into nostril as needed for Congestion. 0 [...] as of this encounter (statuses as of 09/11/2018) Active Problems Problem Noted Date Pollen-food allergy [...] as of this encounter (statuses as of 09/11/2018) Resolved Problems Problem Noted Date Resolved Date Encounter for supervision of other normal pregna ncy 03/13/2011 09/11/2016 Overview: ICD-10 update of inactive term Acute bronchitis, complicated 02/25/2010 Asthma with severity to be determined 02/13/2017 Overview: ICD-10 update of inactive term documented as of this encounter (statuses as of 09/11/2018) Immunizations Name Dates Previously Given Next Due [...] Progress Notes * Liz Cr RN - 09/11/2018 9:32 AM EST Pre-injection Questionnaire Patient identified by [...] Allergy & Immunology Valeriy Milton MD [address] [facility] [place] [address] [phone] Health Maintenance Due Date Last Done Comments PNEUMOCOCCAL 19-64 MEDIUM RI SK (1 of 1 - PPSV23) 2002 PAP SMEAR-EVERY 3 YRS,AGES 21-65 2004 *DEPRESSION SCREENING, NADEGEUA Stephanie FOR PTS 18 AND OVER 09/09/2014 Influenza Vaccine (FLU shot) (#1) 2018 DTaP,Tdap,and Td Vaccines (3 - Td) 01/30/20192008, 02/10/1998 documented as of this encounter Implants Not on filedocumented as of this encounter Advance Directives Patient has advance care planning documents, and code status on file. For more information, please contact: [place] [phone] Latest Code Status on File Code Status Date Activated Date Inactivated Comments Full Code 11/04/2013 2:29 AM 11/04/2013 9:58 PM This order reflects the patients wishes and were consensually agreed upon.
--- OUTSIDE RECORDS SUMMARY | 2023-04-16 16:25 | External Medical Summary | Summary of Care ---
Author Name Unknown Organization [facility] [address] Care Team Providers Care Mechanical Design Engineer Products Name Role Phone Vincent Santiago MD Primary Care Provide r Reason for Visit * Reason Comments Allergy Return * Evaluate & Treat - Unlimited Visits (Within 10 days (routine)) Status Reason Specialty Diagnoses / Procedures Referred By Contact Referred To Contact Authorized Specialty Services Required Allergy & Immunology Diagnoses Oral allergy syndrome, initial encounter Vincent Santiago MD [address] [place] [id number] Encounter Details Date Type Department Care Team Description 06/23/2018 Office Visit Allergy/Immunology [facility] [address] [place] [address] Valeriy Milton MD [address] [place] [address] [phone] Chronic seasonal allergic rhinitis due to pollen*; Allergic rhinitis due to dust; Chronic seasonal allergic rhinitis due to fungal spores; Non-seasonal allergic rhinitis due to animal hair and dander; Pollen-food allergy syndrome, subsequent encounter; Mild intermittent extrinsic asthma without complication; Peanut allergy; Tree nut allergy Allergies Active Allergy Reactions Severity Noted Date Comments [place] (Diagnostic) Anaphylaxis High 05/21/2017 Banana Edema airway High 01/10/2017 Cat Dander Anaphylaxis High 05/21/2017 Corylus Anaphylaxis High 05/21/2017 Latex Rash Low 01/10/2017 Lac Bovis Other (Please comment) 01/16/2017 Mouth tenderness. Peanut (Diagnostic) Anaphylaxis High 05/21/2017 Prednisone Psych complications 01/17/2017 agitation Sesame Seed (Diagnostic) Anaphylaxis High 05/21/2017 Soy Allergy Anaphylaxis High 01/16/2017 [place] Oil Edema airway High 01/10/2017 Wasp Venom Edema airway High 01/10/2017 as of this encounter Medications Medication Sig Dispensed Refills Start Date [...] SPRAY) 0.65 % nasal spray Administer 1 [place] into nostril as needed for Congestion. 0 [...] allergy symptoms 1 Inhaler 5 06/23/2018 Active B Complex-C (SUPER B COMPLEX/VITAMIN C) TABS Take by mouth. 0 8 Discontinued budesonide (RHINOCORT AQUA) 32 MCG/ACT nasal spray Administer 2 Sprays into each nostril daily. Use for worsening or more persistent nasal allergy symptoms 1 Bottle 11 11/27/2017 8 Discontinued as of this encounter Active Problems Problem [...] file Travel History Travel Start Travel End as of this encounter Last Filed Vital Signs Vital Sign Reading Time Taken Blood Pressure 118/76 06/23/2018 5:09 PM EST Pulse 80 06/23/2018 5:09 PM EST Temperature 36.3 C (97.3 F) 06/23/2018 5 :09 PM EST Respiratory Rate 16 06/23/2018 5:09 PM EST Oxygen Saturation - - Inhaled Oxygen Concentration - - Weight 97.2 kg (214 lb 3.2 oz) 06/23/20 18 5:09 PM EST Height 165.1 cm (5' 5") 06/23/2018 5:09 PM EST Body Mass Index 35.64 06/23/2018 5:09 PM EST in this encounter Patient Instructions * Patient Instructions* Valeriy Milton MD - 06/23/2018 5:38 PM EST Pollen Avoidance Measures: Keep windows, doors closed; use air conditioning; dry clothes in vented dryer, not outside on clothesline; shower/bathe and change clothes right after outdoor activity; avoid outdoor activity during high pollen counts; use HEPA type air filtration system. Mold Avoidance Measures: Indoor: Clean moldy surfaces with a diluted bleach solution or a commercial mold filler; fix waterleaks; reduce indoor humidity to <50% with dehumidifiers or air conditioning. Outdoor: Avoid uncut antonio, working with compost and soil, raking leaves and hay; keep windows anddoors closed; use air conditioning Dust Mite Avoidance Measures: Essential: Encase mattress, pillow, box springs in allergen-impermeable covers; wash bedding weeklyin hot water(>130 degreesF); reduce indoor humidity to <50%; dust weekly and run HEPA type vacuum parts cleaner. Desirable: Remove carpets from bedroom and [...] bedroom (close air ducts); remove feathered pillows/bedding. EPIPEN AND EPIPEN JR. DIRECTIONS 1. Pull [...] nearest Emergency Room for further medical evaluation. in this encounter Progress Notes * Valeriy Milton MD - 06/23/2018 5:38 PM EST SUBJECTIVE: Regina abel is evaluated in follow up for her food allergies, allergic rhinitis/conjunctivitis, intermittent asthma, and history of insect sting allergy. She has been doing well since her last visit in November. She had a baby daughter 3 months ago. No problems with her allergies or asthma during the late phase of . Since delivery she is doing well. She is only requiring her oral antihistamine and intranasal steroid on as needed basis. She is rarely having lower respiratory cough or wheeze. Uses her albuterol once a week or less. Asthma triggers have been respiratory infections, exercise, allergen exposure, odors and weather changes. Now that she is delivered she is anxious to resume her immunotherapy which she had just started 07/22/17. After just 5 weekly injections however she discovered she was and her injections werediscontinued. She is considering resuming her injections in July. She is not having problems with allergic skin rashes. Continues to avoid foods to which she is allergic is somewhat concerned about what she can eat regarding pollen/food allergy syndrome. Has been cooking most of her fruits and vegetables. She has not needed oral antibiotics for recurrent sinus or ear infections. She continues to avoid peanuts, tree nuts, mandarin oranges, and sesame seeds in the interval. No major accidental ingestions. She does have Benadryl and EpiPen to use on emergency basis. History of significant reaction November, after ingestion [...] the survey taken on: 11/27/2017 3:21:14 PM. Asthma Control Test Summary, Results are Patient Reported The overall score is: 23 suggesting: Well Controlled asthma for the survey taken on: 09/04/2017 10:04:15 AM. Patient Active Problem List Diagnosis Code Allergic [...] Current Outpatient Medications Medication Sig Dispense Refill cromolyn sodium (CROLOM) 4 % ophthalmic solution [...] SPRAY) 0.65 % nasal spray Administer 1 [place] into nostril as needed for Congestion. albuterol [...] Review of patient's allergies indicates: Allergen Reactions [place] (Diagnostic) Anaphylaxis Banana Edema airway Cat Dander Anaphylaxis [place] Tree Pollen [Corylus] Anaphylaxis Peanut (Diagnostic) Anaphylaxis Sesame Seed (Diagnostic) Anaphylaxis Soy Allergy Anaphylaxis [place] Oil Edema airway Wasp Venom Edema airway [...] floor and heart hardwood. 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 BP 118/76 | Pulse 80 | Temp (Src) 97.3 (Tympanic) | Resp 16 | Ht 5' 5" (1.651m) | Wt 214 lbs 3.2 oz(97.160kg) | BMI 35.64 kg/m | BSA 2.11 m PHYSICAL EXAM: GENERAL: No acute distress. [...] history of significant allergic rhinitis/conjunctivitis symptoms. She can add in her oral antihistamine loratadine 10 mg daily for nasal allergy symptoms as needed, if worsening or more persistent symptoms noted, OTC flonase can be used. For intermittent episodes of chest tightness, shortness of breath, wheezing, albuterol 2 puffs every 4 hours as needed can be utilized. If worsening asthma despite this, she would follow up with her physicians acutely. Allergy immunotherapy was started but had to be discontinued because of her . Now that sheis post delivery she is anxious to resume immunotherapy. Benefits and risks again discussed with her she wish to pursue wishes to proceed with a course beginning in July. She continues avoidance of foods; almond, sunflower/sesame seeds, peanut and soy. Serum IgE determinations however show very show low positive reactions to these foods however history is significant for reactions when ingested. She will continue to avoid them and use emergency Benadryl/Epipen protocol in case of accidental ingestion. She does also demonstrates significant pollen sensitivities by skin testing and the possibility of a pollen food allergy syndrome cannot be ruled out regarding reactions such as she related with mandarin oranges.Symptoms are almost always localized to the mouth and throat area and rarely become systemic. These foods should be avoided in their fresh/raw state, but are often tolerated cooked or processed. Treatment of choice is oral benadryl at onset of the mouth/.throat itching. There is a remote history in [...] Up: Return in about 6 months (around 12/21/2018), or if symptoms worsen or fail to improve. She will resume her allergy immunotherapy injections beginning July 2018. Valeriy Milton MD Allergy/Immunology (This note was completed using the dictation program Fluency Direct. As such, there may be misspellings, word substitutions, or other variations that should not change the essence of the clinical content of this encounter note.If there is need for further clarification, please direct questions to the provider listed above.) in this encounter Nursing Notes * Robles Ida Stephanie, CORINNE - 06/23/2018 5:07 PM EST Chief Complaint Patient presents with Allergy Return No current issues in this encounter Plan of Treatment Upcoming Encounters Date Type Specialty Care Team Description 11/24/2018 Office Visit Allergy & Immunology Valeriy Milton MD [address] [place] [address] [phone] Health Maintenance Due Date Last Done Comments PNEUMOCOCCAL 19-64 MEDIUM RI SK (1 of 1 - PPSV23) 2002 PAP SMEAR-EVERY 3 YRS,AGES 21-65 2004 *DEPRESSION SCREENINGJENA FOR PTS 18 AND OVER 09/09/2014 Influenza Vaccine (FLU shot) (#1) 2018 DTaP,Tdap,and Td Vaccines (3 - Td) 01/30/20192008, 02/10/1998 as of this encounter Implants Not on fileas of this encounter Visit Diagnoses Diagnosis Chronic seasonal allergic rhinitis due to pollen- Primary Allergic rhinitis due to dust Allergic rhinitis due to other allergen Chronic seasonal allergic rhinitis due to fungal spores Non-seasonal allergic rhinitis due to animal hair and dander Pollen-food allergy syndrome, subsequent encounter Mild intermittent extrinsic asthma without complication Peanut allergy Allergy to peanuts Tree nut allergy Allergy to other foods in this encounter Advance Directives Patient has advance care planning documents, and code status on file. For more information, please contact: ERICA Ronquillo [phone] Latest Code Status on File Code Status Date Activated Date Inactivated Comments Full Code 11/04/2013 2:29 AM 11/04/2013 9:58 PM This order reflects the patients wishes and were consensually agreed upon.
--- OUTSIDE RECORDS SUMMARY | 2023-04-16 16:25 | External Medical Summary | Summary of Care ---
Author Name Unknown Organization [place] [address] Care Team Providers Care Centrifugal Extractor Operator Name Role Phone Vincent Santiago MD Primary Care Provide r Reason for Visit * Reason Comments Allergy Injection Encounter Details Date Type Department Care Team Description 08/15/2018 Immunization/In jection Allergy/Immunology [facility] [address] [place] [address] Betty, Nurse [facility] [address] [place] [address] Allergic rhinitis, unspecified seasonality, unspecified trigger* Allergies Active Allergy Reactions Severity Noted Date Comments [place] (Diagnostic) Anaphylaxis High 05/21/2017 Banana Edema airway High 01/10/2017 Cat Dander Anaphylaxis High 05/21/2017 Corylus Anaphylaxis High 05/21/2017 Latex Rash Low 01/10/2017 Lac Bovis Other (Please comment) 01/16/2017 Mouth tenderness. Peanut (Diagnostic) Anaphylaxis High 05/21/2017 Prednisone Psych complications 01/17/2017 agitation Sesame Seed (Diagnostic) Anaphylaxis High 05/21/2017 Soy Allergy Anaphylaxis High 01/16/2017 [place] Oil Edema airway High 01/10/2017 Wasp Venom [...] 0.65 % nasal spray Administer 1 [place] into nostril as needed for Congestion. 0 [...] allergy symptoms 1 Inhaler 5 06/23/2018 Active as of this encounter Active Problems [...] Start Travel End as of this encounter Progress Notes * Liz Cr RN - 08/15/2018 12:22 PM EST Pre-injection Questionnaire Patient identified by [...] documentation located in Allergy Injections CPSL Flowsheet* in this encounter Plan of Treatment Upcoming Encounters Date Type Specialty Care Team Description 11/24/2018 Office Visit Allergy & Immunology Valeriy Milton MD [address] [place] [address] [phone] Health Maintenance Due Date Last Done Comments PNEUMOCOCCAL 19-64 MEDIUM RI SK (1 of 1 - PPSV23) 2002 PAP SMEAR-EVERY 3 YRS,AGES 21-65 2004 *DEPRESSION SCREENING, NADEGEUA Stephanie FOR PTS 18 AND OVER 09/09/2014 Influenza Vaccine (FLU shot) (#1) 2018 DTaP,Tdap,and Td Vaccines (3 - Td) 01/30/20192008, 02/10/1998 as of this encounter Implants Not on fileas of this encounter Visit Diagnoses Diagnosis Allergic rhinitis, unspecified seasonality, unspecified trigger- Primary in this encounter Advance Directives Patient has advance care planning documents, and code status on file. For more information, please contact: ERICA Ronquillo [phone] Latest Code Status on File Code Status Date Activated Date Inactivated Comments Full Code 11/04/2013 2:29 AM 11/04/2013 9:58 PM This order reflects the patients wishes and were consensually agreed upon.
--- OUTSIDE RECORDS SUMMARY | 2023-04-16 16:25 | External Medical Summary | Summary of Care ---
Author Name Unknown Organization [place] [address] Phone Care Team Providers Care Braille Duplicating Machine Operator Name Role Phone Vincent Santiago MD Primary Care Provide r Reason for Visit * Reason Comments ADVICE Encounter Details Date Type Department Care Team Description 12/23/2017 Telephone Allergy/Immunology [facility] [address] [place] [address] Valeriy Milton MD [address] [place], [place] [id number] ADVICE Allergies Active Allergy Reactions Severity Noted Date Comments [place] (Diagnostic) Anaphylaxis High 05/21/2017 Banana Edema [...] SPRAY) 0.65 % nasal spray Administer 1 [place] into nostril as needed for Congestion. Active [...] allergy symptoms 1 Bottle 11 11/27/2017 Active cromolyn sodium (CROLOM) 4 % ophthalmic solution Instill 1 Drop into both eyes 4 times a day as needed for Allergies. 10 mL 12 12/23/2017 Active as of this encounter Active Problems [...] Not on file as of this encounter Miscellaneous Notes * Telephone Encounter - Ida Magana LPN - 12/23/2017 12:14 PM EDT Patient advised of all information. Understood and will comply . * Telephone Encounter - Beverly Del Angel PA-C - 12/23/2017 12:10 PM EDT I called in some Cromolyn which are Cat b which is safe in . She always start with just small saline eye wash to see if that helps since it doesn't have any medications in it. We would prefer the Rhinocort to the Flonase during because we have more data to prove that it is safe in . Flonase is not considered bad or contraindicated but again there is justmore information on the Rhinocort. * Telephone Encounter - Janice Abdi CPhT - 12/23/2017 11:52 AM EDT Pt calling and stated that per last office visit on 11/27/17 it was discussed that the pt could use eye drops if needed. Pt stated that she is unsure of which eye drops to se since . Pt wantedadvise from on which ones to use. Please advise [phone] Pt stated that she would also like to know if she can use Flonase over Rhinocort since the Flonase works much better for her. Thanks, Camacho Abdi Railroad Maintenance Clerk Pharmacy Refill Call Center 12/23/2017,11:53 AM in this encounter Plan of Treatment Upcoming Encounters Date Type Specialty Care Team Description 03/19/2018 Office Visit Allergy & Immunology Valeriy Milton MD [address] [place] [address] Health Maintenance Due Date Last Done [...]
--- OUTSIDE RECORDS SUMMARY | 2023-04-16 16:25 | External Medical Summary | Summary of Care ---
Author Name Unknown Organization [place] [address] Care Team Providers Care Superintendent Renting Managing Name Role Phone Vincent Santiago MD Primary Care Provide r Reason for Visit * Reason Comments Allergy Injection Encounter Details Date Type Department Care Team Description 08/04/2018 Immunization/In jection Allergy/Immunology [facility] [address] [place] [address] Betty, Nurse [facility] [address] [place] [address] Allergic rhinitis, unspecified seasonality, unspecified trigger* Allergies Active Allergy Reactions Severity Noted Date Comments [place] (Diagnostic) Anaphylaxis High 05/21/2017 Banana Edema airway High 01/10/2017 Cat Dander Anaphylaxis High 05/21/2017 Corylus Anaphylaxis High 05/21/2017 Latex Rash Low 01/10/2017 Lac Bovis Other (Please comment) 01/16/2017 Mouth tenderness. Peanut (Diagnostic) Anaphylaxis High 05/21/2017 Prednisone Psych complications 01/17/2017 agitation Sesame Seed (Diagnostic) Anaphylaxis High 05/21/2017 Soy Allergy Anaphylaxis High 01/16/2017 [place] Oil Edema airway High 01/10/2017 Wasp Venom [...] SPRAY) 0.65 % nasal spray Administer 1 [place] into nostril as needed for Congestion. 0 [...] Progress Notes * Lorene Dhaliwal LPN - 08/04/2018 6:10 PM EST Pre-injection Questionnaire Patient identified by [...] Allergy & Immunology Valeriy Milton MD [address] [place] [address] [phone] Health Maintenance Due Date Last Done Comments [...] For more information, please contact: ERICA Ronquillo [phone] Latest Code Status on File Code Status Date Activated Date Inactivated Comments Full Code 11/04/2013 2:29 AM 11/04/2013 9:58 PM This order reflects the patients wishes and were consensually agreed upon.
--- OUTSIDE RECORDS SUMMARY | 2023-04-16 16:25 | External Medical Summary | Summary of Care ---
Author Name Unknown Organization [place] [address] Care Team Providers Care Director [place] Sales Name Role Phone Vincent Santiago MD Primary Care Provide r Reason for Visit * Reason Comments Allergy Serum Allergy Injection Encounter Details Date Type Department Care Team Description 07/07/2018 Nurse Only Allergy/Immunology [facility] [address] [place] [address] Betty, Nurse Allergy [facility] [address] [place] [address] Allergy Serum; Allergy Injection Allergies Active Allergy Reactions Severity Noted Date Comments [place] (Diagnostic) Anaphylaxis High 05/21/2017 Banana Edema airway High 01/10/2017 Cat Dander Anaphylaxis High 05/21/2017 Corylus Anaphylaxis High 05/21/2017 Latex Rash Low 01/10/2017 Lac Bovis Other (Please comment) 01/16/2017 Mouth tenderness. Peanut (Diagnostic) Anaphylaxis High 05/21/2017 Prednisone Psych complications 01/17/2017 agitation Sesame Seed (Diagnostic) Anaphylaxis High 05/21/2017 Soy Allergy Anaphylaxis High 01/16/2017 [place] Oil Edema airway High 01/10/2017 Wasp Venom [...] SPRAY) 0.65 % nasal spray Administer 1 [place] into nostril as needed for Congestion. 0 [...] Start Travel End as of this encounter Nursing Notes * Liz Cr RN - 07/07/2018 12:53 PM EST The pt has been properly identified by confirmation of name and date of . AIT serum(s) prepared per Dr Milton's prescription in this encounter Miscellaneous Notes * Addendum Note - Beverly Del Angel PA-C - 07/07/2018 1:00 PM EST Addended by: BEVERLY DEL ANGEL on: 07/07/2018 01:00 PM Modules accepted: Orders, SmartSet in this encounter Plan of Treatment Upcoming Encounters Date Type Specialty Care Team Description 07/07/2018 Nurse Only Allergy & Immunology Nurse Betty All[facility] [address] [place] [address] Allergy Serum; Allergy Injection 11/24/2018 Office Visit Allergy & Immunology Valeriy Milton MD [address] [place] [address] [phone] Health Maintenance Due Date Last Done Comments [...] Diagnoses Diagnosis Allergic rhinitis, unspecified seasonality, unspecified trigger in this encounter Advance Directives Patient has advance care planning documents, and code status on file. For more information, please contact: ERICA Ronquillo [phone] Latest Code Status on File Code Status Date Activated Date Inactivated Comments Full Code 11/04/2013 2:29 AM 11/04/2013 9:58 PM This order reflects the patients wishes and were consensually agreed upon.
--- OUTSIDE RECORDS SUMMARY | 2023-04-16 16:25 | External Medical Summary | Summary of Care ---
Author Name Unknown Organization [place] [address] Phone Care Team Providers Care Kiln Worker Name Role Phone Vincent Santiago MD Primary Care Provide r Reason for Visit * Reason Comments RECHECK * Evaluate & Treat - Unlimited Visits (Within 10 days (routine)) Status Reason Specialty Diagnoses / Procedures Referred By Contact Referred To Contact Authorized Specialty Services Required Gastroenterology Diagnoses Constipation Vincent Santiago MD [address] [place] [address] Encounter Details Date Type Department Care Team Description 11/13/2017 Office Visit Gastroenterology, [facility] [address] [facility] [place] [address] Carter Parker MD [address] [place] [address] [phone] Constipation, unspecified constipation type*;Heartburn Allergies Active Allergy Reactions Severity Noted Date Comments [place] (Diagnostic) Anaphylaxis High 05/21/2017 Banana Edema airway High 01/10/2017 Cat Dander Anaphylaxis High 05/21/2017 Corylus Anaphylaxis High 05/21/2017 Peanut (Diagnostic) Anaphylaxis High 05/21/2017 Sesame Seed (Diagnostic) Anaphylaxis High 05/21/2017 Soy Allergy Anaphylaxis High 01/16/2017 [place] Oil Edema airway High 01/10/2017 Wasp Venom Edema airway High 01/10/2017 Lac Bovis Other (Please comment) 01/16/2017 Mouth tenderness. Prednisone Psych complications 01/17/2017 agitation Latex Rash Low 01/10/2017 as of this encounter Medications Prescription Sig. Disp. Refills Start Date End Date Status Cranberry 250 MG CAPSIndications:t aking 500mg a day Take 1 Tab by mouth 2 times a day. Indications: taking 500mg a day Active EPINEPHrine, anaphylaxis, (EPI-PEN) 0.3 MG/0.3ML SOAJ injectionIndicati ons:Allergic reaction, initial encounter For a severe reaction: Place orange end against the outer thigh, press firmly, hold in place for 10 seconds and go to the Emergency room. 2 Device 0 01/10/2017 Active albuterol-ipratro pium (DUONEB) 2.5-0.5 MG/3ML nebulizer solution Inhale 3 [...] SPRAY) 0.65 % nasal spray Administer 1 [place] into nostril as needed for Congestion. Active B Complex-C (SUPER B COMPLEX/VITAMIN C) TABS Take by mouth. Active budesonide (RHINOCORT AQUA) 32 MCG/ACT nasal spray Administer 2 Sprays into each nostril daily. 1 Bottle 11 09/04/2017 Active loratadine ODT (CLARITIN REDITAB) 10 MG TBDP Take 1 tab daily for nasal allergy symptoms 09/04/2017 Active vitamins ( RX) 27-1 MG Tablet Take 1 Tab by mouth daily. Active meclizine (ANTIVERT) 25 MG TabletIndications :Concussion without loss of consciousness, subsequent encounter,Vertigo Take 1 Tab by mouth 3 times a day as needed for Dizziness. 30 Tab 1 05/21/2017 8 Discontinued as of this encounter Active [...] Not on file as of this encounter Last Filed Vital Signs Vital Sign Reading Time Taken Blood Pressure 108/64 11/13/2017 3:25 PM EDT Pulse 64 11/13/2017 3:25 PM EDT Temperature 36.4 C (97.5 F) 11/13/2017 3 :25 PM EDT Respiratory Rate - - Oxygen Saturation - - Inhaled Oxygen Concentration - - Weight 87.1 kg (192 lb) 11/13/2017 3:25 PM EDT Height - - Body Mass Index 31.95 11/13/2017 3:25 PM EDT in this encounter Progress Notes * Carter Parker MD - 11/13/2017 4:03 PM EDT see dictated note. Carter Parker MD in this encounter Nursing Notes * Joann Blanchard, RN - 11/13/2017 3:20 PM EDT Formatting of this note may be different from the original. Chief Complaint Patient presents with RECHECK Patient reports that she had been feeling better after gallbladder surgery, however she is feeling,sick after eating, acid/indigestion. Is currently , but has c/o constipation with pin to RLQ. Has mucus with chunks of white, for approx a week, bowels move every approx 4 days. Stools are formed, but not hard. Reports that is increasing fluids and fresh foods along with walking. in this encounter Plan of Treatment Upcoming Encounters Date Type Specialty Care Team Description 11/27/2017 Office Visit Allergy & Immunology Valeriy Milton MD [address] [facility] [address] [phone] 12/27/2017 Office Visit Allergy & Immunology Valeriy Milton MD [address] [facility] [address] [phone] Health Maintenance Due Date Last Done Comments PNEUMOCOCCAL 19-64 MEDIUM RI SK (1 of 1 - PPSV23) 2002 PAP SMEAR-EVERY 3 YRS,AGES 21-65 2004 *ASTHMA ACTION PLAN-ADULT YEARLY 08/11/2014 *DEPRESSION SCREENING, JENA Brown FOR PTS 18 AND OVER 09/09/2014 Influenza Vaccine (FLU shot) (#1) 2017 DTaP,Tdap,and Td Vaccines (3 - Td) 01/30/20192008, 02/10/1998 as of this encounter Implants Not on fileas of this encounter Visit Diagnoses Diagnosis Constipation, unspecified co nstipation type - Primary Heartburn in this encounter Insurance Payer Benefit Plan / Group Subscriber ID Type Phone Address [facility] [id number] [phone] [facility] [place] [phone] as of this encounter
--- OUTSIDE RECORDS SUMMARY | 2023-04-16 16:25 | External Medical Summary | Summary of Care ---
Author Name Unknown Organization [place] [address] Phone Care Team Providers Care Wad Printing Machine Operator Name Role Phone Vincent Santiago MD Primary Care Provide r Reason for Visit * Reason Comments Allergy Return * Evaluate & Treat - Unlimited Visits (Within 10 days (routine)) Status Reason Specialty Diagnoses / Procedures Referred By Contact Referred To Contact Authorized Specialty Services Required Allergy & Immunology Diagnoses Oral allergy syndrome, initial encounter Vincent Santiago MD [address] [place] [phone] Encounter Details Date Type Department Care Team Description 11/27/2017 Office Visit Allergy/Immunology [facility] [address] [place] [address] Valeriy Milton MD 200 [place] [address] [phone] Chronic seasonal allergic rhinitis due to pollen*;Allergic reaction, initial encounter;Allergic rhinitis due to dust;Chronic seasonal allergic rhinitis due to fungal spores;Non-seasonal allergic rhinitis due to animal hair and dander;Pollen-food allergy syndrome, subsequent encounter;Mild intermittent extrinsic asthma without complication;Peanut allergy;Tree nut allergy; state, incidental;Heartburn Allergies Active Allergy Reactions Severity Noted Date Comments Golden (Diagnostic) Anaphylaxis High 05/21/2017 Banana Edema airway High 01/10/2017 Cat Dander Anaphylaxis High 05/21/2017 Corylus Anaphylaxis High 05/21/2017 Peanut (Diagnostic) Anaphylaxis High 05/21/2017 Sesame Seed (Diagnostic) Anaphylaxis High 05/21/2017 Soy Allergy Anaphylaxis High 01/16/2017 [place] Oil Edema airway High 01/10/2017 Wasp Venom [...] day. Indications: taking 500mg a day Active albuterol-ipratro pium (DUONEB) 2.5-0.5 MG/3ML nebulizer [...] SPRAY) 0.65 % nasal spray Administer 1 [place] into nostril as needed for Congestion. Active [...] allergy symptoms 1 Bottle 11 11/27/2017 Active EPINEPHrine, anaphylaxis, (EPI-PEN) 0.3 MG/0.3ML SOAJ injectionIndicati ons:Allergic reaction, initial encounter For a severe reaction: Place orange end against the outer thigh, press firmly, hold in place for 10 seconds and go to the Emergency room. 2 Device 0 01/10/2017 8 Discontinued budesonide (RHINOCORT AQUA) 32 MCG/ACT nasal spray Administer 2 Sprays into each nostril daily. 1 Bottle 11 09/04/2017 8 Discontinued as of this encounter Active [...] Vital Sign Reading Time Taken Blood Pressure 114/80 11/27/2017 3:16 PM EDT Pulse 76 11/27/2017 3:16 PM EDT Temperature 36.6 C (97.8 F) 11/27/2017 3 :16 PM EDT Respiratory Rate 16 11/27/2017 3:16 PM EDT Oxygen Saturation - - Inhaled Oxygen Concentration - - Weight 88.4 kg (194 lb 12.8 oz) 018 3:16 PM EDT Height 165.1 cm (5' 5") 11/27/2017 3:16 PM EDT Body Mass Index 32.42 11/27/2017 3:16 PM EDT in this encounter Instructions * Patient Instructions - Valeriy Milton MD - 11/27/2017 3:54 PM EDT Pollen Avoidance Measures: Keep windows, doors closed; use air conditioning; dry clothes in vented dryer, not outside on clothesline; shower/bathe and change clothes right after outdoor activity; avoid outdoor activity during high pollen counts; use HEPA type air filtration system. Mold Avoidance Measures: Indoor: Clean moldy surfaces with a diluted bleach solution or a commercial hand mold maker; fix waterleaks; reduce indoor humidity [...] dust weekly and run HEPA type vacuum conduit cleaner. Desirable: Remove carpets from bedroom and [...] bedroom (close air ducts); remove feathered pillows/bedding. Anti-Reflux Measures Avoid coffee, tea, and caffeinated soft drinks; chocolate, alcohol, cigarettes, fatty foods,spices,peppermint and spearmint. Don't eat or drink for 3 hrs. before going to bed. Avoid lying down after meals. Elevate the head of your bed 6-8 inches on blocks. Don't wear tight clothing around your abdomen. Avoid straining, prolonged bending, constipation. Lose weight ( if you are overweight) in this encounter Progress Notes * Valeriy Milton MD - 11/27/2017 3:25 PM EDT Formatting of this note may be different from the original. SUBJECTIVE: Regina abel is evaluated in follow up for her food allergies, allergic rhinitis/conjunctivitis, intermittent asthma, and history of insect sting allergy. She has continued to do well since her last visit August. She is now 19 weeks and doing well without major increases in nasal allergy symptoms or asthma problems. She is just using Rhinocort and Claritin as needed basis. She has albuterol but has not needed it frequently. She has not needed oral antibiotics for recurrent sinus or ear infections. She decided to proceed with a course of allergy immunotherapy which was begun through this office 07/22/17. After just 5 weekly injections however she discovered she was and her injections were discontinued. Asthma triggers have been respiratory infections, exercise, allergen exposure, odors and weather changes. She continues to avoid peanuts, tree nuts, mandarin oranges, and seeds in the interval. No major accidental [...] seen in the emergency roomat that time. Allergy immunotherapy was attempted in this office in the but because of reactions she was only able to tolerate about 6 months of it. She also relates a reaction to a wasp sting at approximately age 8. Multiple stings may have been involved. She did have significant large local swelling of the lower extremities. She also developedchest tightness, shortness of breath and some throat swelling. She was never tested for insect sting allergy the time. She has not had any recent stings. She is having some increased indigestion and reflux symptoms with her . Occasionally usingTums but her other physicians were concerned about Calcium. Questioning use of Zantac during . Asthma Control Test Summary, Results are Patient [...] PROCEDURE NEC REMOVE GALLBLADDER 08/24/2016 Current Outpatient Prescriptions Medication Sig Dispense Refill albuterol (VENTOLIN HFA) 108 (90 BASE) MCG/ACT inhaler Inhale 2 Puffs by mouth every 4 hours asneeded for Cough, Shortness of Breath or Wheezing. 1 Inhaler 3 EPINEPHrine, anaphylaxis, (EPI-PEN) 0.3 MG/0.3ML SOAJ injection For a severe reaction: Place orange end against the outer thigh, press firmly, hold in place for 10 seconds and go to the Emergencyroom. 2 Device 0 loratadine ODT (CLARITIN REDITAB) 10 MG TBDP Take 1 tab daily for nasal allergy symptoms vitamins ( RX) 27-1 MG Tablet Take 1 Tab by mouth daily. albuterol-ipratropium (DUONEB) 2.5-0.5 MG/3ML nebulizer solution Inhale 3 mL by mouth every 6 hoursas needed (wheezing). 60 Vial 5 B Complex-C (SUPER B COMPLEX/VITAMIN C) TABS Take by mouth. budesonide (RHINOCORT AQUA) 32 MCG/ACT nasal spray Administer 2 Sprays into each nostril daily. 1 Bottle 11 Cranberry 250 MG CAPS Take 1 Tab by mouth 2 times a day. Indications: taking 500mg a day diphenhydrAMINE (BENADRYL) 25 MG Capsule Take 2 capsules at onset suspected allergic reaction; may repeat every 4-6 hrs. as needed. 40 Cap 1 PredniSONE (DELTASONE) 20 MG Tablet Take 2 tablets as a one time dose for significant mouth/thorat swelling 20 Tab 1 saline (OCEAN NASAL SPRAY) 0.65 % nasal spray Administer 1 [place] into nostril as needed for Congestion. Review of patient's allergies indicates: Allergen Reactions Golden (Diagnostic) Anaphylaxis Banana Edema airway Cat Dander Anaphylaxis [place] Tree Pollen [Corylus] Anaphylaxis Peanut (Diagnostic) Anaphylaxis Sesame Seed (Diagnostic) Anaphylaxis Soy Allergy Anaphylaxis [place] Oil Edema airway Wasp Venom Edema airway Milk [Lac Bovis] Other (Please comment) Mouth tenderness. Prednisone Psych complications agitation Latex Rash Family History Problem Relation Age of Onset Heart Disorder Father Endocrine Disorder Father high cholesterol Heart Disorder Paternal Grandmother Heart Disorder Paternal Grandfather Allergies Son tree nut allergy Allergies Daughter [...] floor and heart hardwood. 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 BP 114/80 | Pulse 76 | Temp 97.8 | Resp 16 | Ht 5' 5" (1.651m) | Wt 194 lbs 12.8 oz (88.361kg) | BMI 32.42 kg/m | BSA 2.01 m | LMP 01/11/2017 PHYSICAL EXAM: GENERAL: No acute distress. HEAD [...] . Cashew and banana were negative. Spirometry 6/28/17 revealed minimally reduced FEV1/FVC ratio of 82%, but above lower limits of normal. FEV1 3.34 L, 103% of predicted. Findings are consistent with essentially normal spirometry. ASSESSMENT: ICD-10-CM 1. Chronic seasonal allergic rhinitis due to pollen J30.1 2. Allergic reaction, initial encounter T78.40XA 3. Allergic rhinitis due to dust J30.89 4. Chronic seasonal allergic rhinitis due to fungal spores J30.2 5. Non-seasonal allergic rhinitis due to animal hair and dander J30.81 6. 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 Mild intermittent extrinsic asthma without complication J45.20 8. Peanut allergy Z91.010 9. 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 state, incidental Z33.1 11. Heartburn R12 PLAN: Avoidance measures regarding pollens, molds, dust mites and animal danders should be continued. She has a longstanding history of significant allergic rhinitis/conjunctivitis symptoms. She has not noted significant worsening during her current . She may use intranasal steroid therapy with Rhinocort 2 squirts in each nostril daily to reduce nasal congestion and postnasal drip especially during the upcoming pollen season. She can add in her oral antihistamine loratadine 10 mg daily if worsening or more persistent symptoms noted. These medications are safe to use in . For intermittent episodes of chest tightness, shortness of breath especially in conjunction with allergic triggers, use of albuterol 2 puffs every 4 hours as needed can be continued during .If persistent lower respiratory symptoms during , an inhaled steroid anti-inflammatory preventative like budesonide inhaler could be added. If worsening asthma despite this, she would followup with her physicians acutely. Allergy immunotherapy was started but had to be discontinued because of her . It is contraindicated in during buildup phase because of the increased risk of systemic anaphylactic reactions during this phase of immunotherapy. It could be considered as a future option for her after her is completed. She continues avoidance of foods; almond, sunflower seeds, peanut and soy. Serum IgE determinationshowever show very show low positive reactions to these foods only; however history is significant for reactions when [...] benadryl at onset of the mouth/.throat itching. She is having some significant increase in heartburn and dyspepsia with . Anti-reflux measures recommended. Occasional use of antacids such as Tums or Mylanta could be considered, as this should not significantly increased Calcium burden. If however persistent symptoms, Zantac is category B with low risk in and can be utilized. There is a remote history in childhood of reaction to insect stings. Once her other problems are better controlled, venom testing recommended to see if there is still current significant IgE mediatedvenom sensitivity remaining. At the present time she will avoid insect stings and if stung follow the same Benadryl/EpiPen protocol that she uses for her food allergies. Follow Up: Return in about 4 months (around 03/29/2018), or if symptoms worsen or fail to [...] above.) in this encounter Nursing Notes * Lorene Dhaliwal, CORINNE - 11/27/2017 3:16 PM EDT The pt has been properly identified by confirmation of name and date of . Pt presents for allergy return. Pt denies any problems at this time. in this encounter Plan of Treatment Upcoming Encounters Date Type Specialty Care Team Description 03/19/2018 Office Visit Allergy & Immunology Valeriy Milton MD [address] [place] [address] [phone] Health Maintenance Due Date Last Done Comments [...] encounter Visit Diagnoses Diagnosis Chronic seasonal allergic rh initis due to pollen - Primary Allergic reaction, initial e ncounter Allergic rhinitis due to dus t Allergic rhinitis due to other allergen Chronic seasonal allergic rh initis due to fungal spores Non-seasonal allergic rhinit is due to animal hair and dander Pollen-food allergy syndrome , subsequent encounter Mild intermittent extrinsic asthma without complication Peanut allergy Allergy to peanuts Tree nut allergy Allergy to other foods state, incidental Heartburn in this encounter Insurance Payer Benefit Plan / Group Subscriber ID Type Phone Address [facility] [employer] [facility] [id number] [address] [facility] [place] [address] as of this encounter
--- OUTSIDE RECORDS SUMMARY | 2023-04-16 16:25 | External Medical Summary | Summary of Care ---
Author Name Unknown Organization [place] [address] Phone Care Team Providers Care Heddle Machine Operator Name Role Phone Vincent Santiago MD Primary Care Provide r Reason for Visit * Reason Comments ADVICE Encounter Details Date Type Department Care Team Description 12/23/2017 Telephone Allergy/Immunology [facility] [address] [place], [place] [id number] Valeriy Milton MD 200 [place], [place] [id number] ADVICE Allergies Active Allergy Reactions Severity Noted Date Comments [place] (Diagnostic) Anaphylaxis High 05/21/2017 Banana Edema airway High 01/10/2017 Cat Dander Anaphylaxis High 05/21/2017 Corylus Anaphylaxis High 05/21/2017 Peanut (Diagnostic) Anaphylaxis High 05/21/2017 Sesame Seed (Diagnostic) Anaphylaxis High 05/21/2017 Soy Allergy Anaphylaxis High 01/16/2017 Love Oil Edema airway High 01/10/2017 Wasp Venom [...] SPRAY) 0.65 % nasal spray Administer 1 [place] into nostril as needed for Congestion. Active [...] on which ones to use. Please advise [phone] Pt stated that she would also like to know if she can use Flonase over Rhinocort since the Flonase works much better for her. Thanks, Camacho Abdi [employer] [facility] Refill [facility] 12/23/2017,11:53 AM in this encounter Plan of Treatment Upcoming Encounters Date Type Specialty Care Team Description 04/29/2018 Office Visit Allergy & Immunology Valeriy Milton MD [address] [place] [address] Health Maintenance Due Date Last Done [...]
--- OUTSIDE RECORDS SUMMARY | 2023-04-16 16:25 | External Medical Summary | Summary of Care ---
Author Name Unknown Organization [place] [address] Care Team Providers Care Sports Health Club Membership Advisors Name Role Phone Vincent Santiago MD Primary Care Provide r Reason for Visit * Reason Comments Allergy Serum Allergy Injection Encounter Details Date Type Department Care Team Description 07/07/2018 Nurse Only Allergy/Immunology [facility] [address] [place] [address] Betty, Nurse Allergy Scenery [address] [place] [address] Allergy Serum; Allergy Injection Allergies Active Allergy Reactions Severity Noted Date Comments [place] (Diagnostic) Anaphylaxis High 05/21/2017 Banana Edema airway High 01/10/2017 Cat Dander Anaphylaxis High 05/21/2017 Corylus Anaphylaxis High 05/21/2017 Latex Rash Low 01/10/2017 Lac Bovis Other (Please comment) 01/16/2017 Mouth tenderness. Peanut (Diagnostic) Anaphylaxis High 05/21/2017 Prednisone Psych complications 01/17/2017 agitation Sesame Seed (Diagnostic) Anaphylaxis High 05/21/2017 Soy Allergy Anaphylaxis High 01/16/2017 [place] Oil Edema airway High 01/10/2017 Wasp Venom [...] [facility] [address] [place] [address] Allergy Serum; Allergy Injection 11/24/2018 Office Visit Allergy & Immunology Valeriy Milton MD [address] [place] [address] [phone] Health Maintenance Due Date Last Done Comments [...] For more information, please contact: [place] [phone] Latest Code Status on File Code Status Date Activated Date Inactivated Comments Full Code 11/04/2013 2:29 AM 11/04/2013 9:58 PM This order reflects the patients wishes and were consensually agreed upon.
--- OUTSIDE RECORDS SUMMARY | 2023-04-16 16:25 | External Medical Summary | Summary of Care ---
Author Name Unknown Organization [place] [address] Care Team Providers Care Pulper Name Role Phone Vincent Santiago MD Primary Care Provide r Reason for Visit * Reason Comments Allergy Injection Encounter Details Date Type Department Care Team Description 09/23/2018 Immunization/In jection Allergy/Immunology [facility] [address] [place] [address] Betty Nurse Allergy [facility] [address] [place] [address] [phone] Allergic rhinitis, unspecified seasonality, unspecified trigger* Allergies Active Allergy Reactions Severity Noted Date Comments [place] (Diagnostic) Anaphylaxis High 05/21/2017 Banana Edema airway High 01/10/2017 Cat Dander Anaphylaxis High 05/21/2017 Corylus Anaphylaxis High 05/21/2017 Latex Rash Low 01/10/2017 Lac Bovis Other (Please comment) 01/16/2017 Mouth tenderness. Peanut (Diagnostic) Anaphylaxis High 05/21/2017 Prednisone Psych complications 01/17/2017 agitation Sesame Seed (Diagnostic) Anaphylaxis High 05/21/2017 Soy Allergy Anaphylaxis High 01/16/2017 [place] Oil Edema airway High 01/10/2017 Wasp Venom Edema airway High 01/10/2017 documented as of this encounter (statuses as of 09/23/2018) Medications Medication Sig Dispensed Refills Start Date [...] SPRAY) 0.65 % nasal spray Administer 1 [place] into nostril as needed for Congestion. 0 [...] as of this encounter (statuses as of 09/23/2018) Active Problems Problem Noted Date Pollen-food allergy [...] as of this encounter (statuses as of 09/23/2018) Resolved Problems Problem Noted Date Resolved Date Encounter for supervision of other normal pregna ncy 03/13/2011 09/11/2016 Overview: ICD-10 update of inactive term Acute bronchitis, complicated 02/25/2010 Asthma with severity to be determined 02/13/2017 Overview: ICD-10 update of inactive term documented as of this encounter (statuses as of 09/23/2018) Immunizations Name Dates Previously Given Next Due [...] Progress Notes * Lorene Dhaliwal LPN - 09/23/2018 11:14 AM EST Pre-injection Questionnaire Patient identified by [...] Visit Family Medicine Vincent Santiago MD [address] [facility] [place] [address] 11/24/2018 Office Visit [facility] [address] [phone] Health Maintenance Due Date Last Done Comments [...] For more information, please contact: [place] [address] Latest Code Status on File Code Status Date Activated Date Inactivated Comments Full Code 11/04/2013 2:29 AM 11/04/2013 9:58 PM This order reflects the patients wishes and were consensually agreed upon.
--- OUTSIDE RECORDS SUMMARY | 2023-04-16 16:25 | External Medical Summary | Summary of Care ---
Author Name Unknown Organization [place] [address] Care Team Providers Care Paraprofessional Interpreter Name Role Phone Vincent Santiago MD Primary Care Provide r Reason for Visit * Reason Comments Allergy Injection Encounter Details Date Type Department Care Team Description 08/25/2018 Immunization/In jection Allergy/Immunology [facility] [address] [place] [address] Betty, Nurse Allergy [facility] [address] [place] [address] Allergic rhinitis, unspecified seasonality, unspecified trigger* Allergies Active Allergy Reactions Severity Noted Date Comments [place] (Diagnostic) Anaphylaxis High 05/21/2017 Banana Edema airway High 01/10/2017 Cat Dander Anaphylaxis High 05/21/2017 Corylus Anaphylaxis High 05/21/2017 Latex Rash Low 01/10/2017 Lac Bovis Other (Please comment) 01/16/2017 Mouth tenderness. Peanut (Diagnostic) Anaphylaxis High 05/21/2017 Prednisone Psych complications 01/17/2017 agitation Sesame Seed (Diagnostic) Anaphylaxis High 05/21/2017 Soy Allergy Anaphylaxis High 01/16/2017 [place] Oil Edema airway High 01/10/2017 Wasp Venom [...] SPRAY) 0.65 % nasal spray Administer 1 Crum into nostril as needed for Congestion. 0 [...] Progress Notes * Lorene Dhaliwal LPN - 08/25/2018 11:52 AM EST Pre-injection Questionnaire Patient identified by [...] Allergy & Immunology Valeriy Milton MD [address] [place] [address] [phone] Health Maintenance Due Date Last Done Comments [...] For more information, please contact: [place] Ronqu[place] [id number] Latest Code Status on File Code Status Date Activated Date Inactivated Comments Full Code 11/04/2013 2:29 AM 11/04/2013 9:58 PM This order reflects the patients wishes and were consensually agreed upon.
--- OUTSIDE RECORDS SUMMARY | 2023-04-16 16:25 | External Medical Summary | Summary of Care ---
Author Name Unknown Organization [facility] [address] Care Team Providers Care Prevention Specialist Name Role Phone Vincent Santiago MD Primary Care Provide r Reason for Visit * Reason Comments Allergy Injection Encounter Details Date Type Department Care Team Description 09/01/2018 Immunization/In jection Allergy/Immunology [facility] [address] [place] [address] Betty, Nurse Allergy [facility] [address] [place] [address] Allergic rhinitis, unspecified seasonality, unspecified trigger* Allergies Active Allergy Reactions Severity Noted Date Comments [place] (Diagnostic) Anaphylaxis High 05/21/2017 Banana Edema airway High 01/10/2017 Cat Dander Anaphylaxis High 05/21/2017 Corylus Anaphylaxis High 05/21/2017 Latex Rash Low 01/10/2017 Lac Bovis Other (Please comment) 01/16/2017 Mouth tenderness. Peanut (Diagnostic) Anaphylaxis High 05/21/2017 Prednisone Psych complications 01/17/2017 agitation Sesame Seed (Diagnostic) Anaphylaxis High 05/21/2017 Soy Allergy Anaphylaxis High 01/16/2017 [place] Oil Edema airway High 01/10/2017 Wasp Venom [...] SPRAY) 0.65 % nasal spray Administer 1 [place] into nostril as needed for Congestion. 0 [...] Progress Notes * Lorene Dhaliwal LPN - 09/01/2018 11:55 AM EST Pre-injection Questionnaire Patient identified [...] Encounters Date Type Specialty Care Team Description 09/01/2018 Immunization/Inj ection Allergy & Immunology Nurse [facility] [address] [place] [address] Allergic rhinitis, unspecified seasonality, unspecified trigger* 11/24/2018 Office Visit Allergy & Immunology Valeriy Milton MD [address] [place] [address] [phone] Health Maintenance Due Date Last Done Comments [...] For more information, please contact: [place] Ronquillo [phone] Latest Code Status on File Code Status Date Activated Date Inactivated Comments Full Code 11/04/2013 2:29 AM 11/04/2013 9:58 PM This order reflects the patients wishes and were consensually agreed upon.
--- OUTSIDE RECORDS SUMMARY | 2023-04-16 16:26 | External Medical Summary | Summary of Care ---
Author Name Unknown Organization [place] [address] Phone Care Team Providers Care Development Eng Name Role Phone Vincent Santiago MD Primary Care Provide r Reason for Visit * Reason Comments ADVICE Encounter Details Date Type Department Care Team Description 11/05/2017 Telephone Gastroenterology, [facility] [address] [facility] [place] [address] Carter Parker MD [address] [place] [address] [phone] ADVICE Allergies Active Allergy Reactions Severity Noted Date Comments [place] (Diagnostic) Anaphylaxis High 05/21/2017 Banana Edema airway High 01/10/2017 Cat Dander Anaphylaxis High 05/21/2017 Corylus Anaphylaxis High 05/21/2017 Peanut (Diagnostic) Anaphylaxis High 05/21/2017 Sesame Seed (Diagnostic) Anaphylaxis High 05/21/2017 Soy Allergy Anaphylaxis High 01/16/2017 [place] Oil Edema airway High 01/10/2017 Wasp Venom Edema airway High 01/10/2017 Lac Bovis Other (Please comment) 01/16/2017 Mouth tenderness. Prednisone Psych complications 01/17/2017 agitation Latex Rash Low 01/10/2017 as of this encounter Medications Prescription Sig. Disp. Refills Start Date End Date Status Cranberry 250 MG CAPS Take 1 Tab by mouth 2 times a day. Active EPINEPHrine, anaphylaxis, (EPI-PEN) 0.3 MG/0.3ML SOAJ injectionIndications :Allergic reaction, initial encounter For a severe reaction: Place orange end against the outer thigh, press firmly, hold in place for 10 seconds and go to the Emergency room. 2 Device 0 01/10/2017 Active albuterol-ipratropiu m (DUONEB) 2.5-0.5 MG/3ML nebulizer [...] SPRAY) 0.65 % nasal spray Administer 1 [place] into nostril as needed for Congestion. Active meclizine (ANTIVERT) 25 MG TabletIndications:Co ncussion without loss of consciousness, subsequent encounter,Vertigo Take 1 Tab by mouth 3 times a day as needed for Dizziness. 30 Tab 1 05/21/2017 Active B Complex-C (SUPER B COMPLEX/VITAMIN C) TABS Take by mouth. Active budesonide (RHINOCORT AQUA) 32 MCG/ACT nasal spray Administer 2 Sprays into each nostril daily. 1 Bottle 11 09/04/2017 Active loratadine ODT (CLARITIN REDITAB) 10 MG TBDP Take 1 tab daily for nasal allergy symptoms 09/04/2017 Active as of this encounter Active Problems [...] encounter Miscellaneous Notes * Telephone Encounter - Marcelina Lancaster, SUSAN - 11/05/2017 10:56 AM EDT Patient called for an appointment with Dr Parker because she is having constipation issues and is also 17 weeks . Patient reports some mucus in her stool. Patient is scheduled on 11-13-2017 but would like some advice in the meantime on the constipation issues. Please call the patient at the cell number listed. Thank you. in this encounter Plan of Treatment Upcoming Encounters Date Type Specialty Care Team Description 11/13/2017 Office Visit Gastroenterology Cartre Parker MD [address] [facility] [place] [address] 11/27/2017 Office Visit Allergy & Immunology Valeriy Milton MD [address] [facility] [place] [address] [phone] 12/27/2017 Office Visit Allergy & Immunology Valeriy Milton MD [address] [place] [address] [phone] Health Maintenance Due Date Last Done Comments [...] / Group Subscriber ID Type Phone Address [facility] [id number] [phone] [address] [facility] [place] [phone] as of this encounter
--- OUTSIDE RECORDS SUMMARY | 2023-04-16 16:26 | External Medical Summary | Summary of Care ---
Author Name Unknown Organization [place] [address] Phone Care Team Providers Care Brazer Controlled Atmospheric Furnace Name Role Phone Vincent Santiago MD Primary Care Provide r Reason for Visit * Reason Comments ALLERGY INJECTION Encounter Details Date Type Department Care Team Description 08/16/2017 Immunization/In jection Allergy/Immunology [facility] [address] [place] [address] Betty Nurse All[facility] [address] [place] [address] Chronic allergic rhinitis, unspecified seasonality, unspecified trigger*;Mild intermittent extrinsic asthma without complication Allergies Active Allergy Reactions Severity Noted Date Comments [place] (Diagnostic) Anaphylaxis High 05/21/2017 Banana Edema airway High 01/10/2017 Cat Dander Anaphylaxis High 05/21/2017 Corylus Anaphylaxis High 05/21/2017 Peanut (Diagnostic) Anaphylaxis High 05/21/2017 Sesame Seed (Diagnostic) Anaphylaxis High 05/21/2017 Soy Allergy Anaphylaxis High 01/16/2017 [place] Oil Edema airway High 01/10/2017 Wasp Venom Edema airway High 01/10/2017 Lac Bovis Other (Please comment) 01/16/2017 Mouth tenderness. Prednisone Psych complications 01/17/2017 agitation Latex Rash Low 01/10/2017 as of this encounter Medications Prescription Sig. Disp. Refills Start Date End Date Status Cyanocobalamin (VITAMIN B-12 ER) 1000 MCG TBCR Take 1 Tab by mouth daily. 10/10/2016 Active Cranberry 250 MG CAPS Take 1 Tab [...] SPRAY) 0.65 % nasal spray Administer 1 [place] into nostril as needed for Congestion. Active meclizine (ANTIVERT) 25 MG TabletIndications:Co ncussion without loss of consciousness, subsequent encounter,Vertigo Take 1 Tab by mouth 3 times a day as needed for Dizziness. 30 Tab 1 05/21/2017 Active loratadine ODT (CLARITIN REDITAB) 10 MG TBDP Takes 1/2 tab twice daily 06/27/2017 Active fluticasone (FLONASE) 50 MCG/ACT nasal spray Administer 2 Sprays into each nostril daily. 1 Inhaler 11 06/27/2017 Active as of this encounter Active Problems [...] ICD-10 update of inactive term Esophageal reflux as of this encounter Resolved Problems Problem [...] Not on file as of this encounter Progress Notes * Liz Cr RN - 08/16/2017 12:32 PM EST Pre-injection Questionnaire Patient identified [...] Allergy & Immunology Valeriy Milton MD [address] [place] [address] Health Maintenance Due Date Last Done Comments PNEUMOCOCCAL 19-64 MEDIUM RI SK (1 of 1 - PPSV23) 2002 PAP SMEAR-EVERY 3 YRS,AGES 21-65 2004 *ASTHMA ACTION PLAN-ADULT YEARLY 08/11/2014 *DEPRESSION SCREENING, ANNUA Stephanie FOR PTS 18 AND OVER 09/09/2014 Influenza Vaccine (FLU shot) (#1) 2017 TETANUS EVERY 10 YRS-TDAP (BOOSTRIX/ADACEL) SUGGESTED IF NOT RECEIVED IN PAST 01/30/2019 01/30/2009, 02/10/1998 as of this encounter Implants Not on fileas of this encounter Visit Diagnoses Diagnosis Chronic allergic rhinitis, u nspecified seasonality, unspecified trigger - Primary Mild intermittent extrinsic asthma without complication in this encounter Insurance Payer Benefit Plan / Group Subscriber ID Type Phone Address [facility] [employer] [place] [facility] [employer] [id number] [phone] [place] [phone] as of this encounter
--- OUTSIDE RECORDS SUMMARY | 2023-04-16 16:26 | External Medical Summary | Summary of Care ---
Author Name Unknown Organization [place] [address] Phone Care Team Providers Care Steam Tank Operator Name Role Phone Vincent Santiago MD Primary Care Provide r Reason for Visit * Reason Comments MEDICATION QUESTION Encounter Details Date Type Department Care Team Description 08/28/2017 Telephone PHARMACY CALL CENTER [address] [facility] [place] [address] Dayday Swanson, [facility] [address] [facility] [place] [address] MEDICATION QUESTION Allergies Active Allergy Reactions Severity Noted Date Comments [place] (Diagnostic) Anaphylaxis High 05/21/2017 Banana Edema airway High 01/10/2017 Cat Dander Anaphylaxis High 05/21/2017 Corylus Anaphylaxis High 05/21/2017 Peanut (Diagnostic) Anaphylaxis High 05/21/2017 Sesame Seed (Diagnostic) Anaphylaxis High 05/21/2017 Soy Allergy Anaphylaxis High 01/16/2017 Day Oil Edema airway High 01/10/2017 Wasp Venom [...] SPRAY) 0.65 % nasal spray Administer 1 [place] into nostril as needed for Congestion. Active [...] Telephone Encounter - Liyah Hyde LPN - 08/29/2017 10:34 AM EST S/w aware. Will check with OB this afternoon when they have an appt. * Telephone Encounter - Vincent Santiago MD - 08/29/2017 9:48 AM EST Ok with me for zantac I would suggest she confirm with her OB just to be thorough * Telephone Encounter - Dayday Swanson [facility] - 08/28/2017 1:56 PM EST Patient called saying she is 6 weeks and has an upset stomach and wants to know if she canuse Zantac and what dose to use. I recommended Tums would be better during , but she said she has been using Tums and her urologist told her not to take too many of them. I said I would senda message to her doctor regarding Zantac. Please advise. Thanks, Dayday Swanson, Pharm.D. Staff Pharmacist Refill Call Center 08/28/2017, 1:58 PM in this encounter Plan of Treatment Upcoming Encounters Date Type Specialty Care Team Description 09/04/2017 Office Visit Allergy & Immunology Valeriy Milton MD [address] [place] [place] [address] [phone] 11/27/2017 Office Visit Allergy & Immunology Valeriy Milton MD [address] [facility] [place] [address] [phone] Health Maintenance Due Date Last Done Comments [...] / Group Subscriber ID Type Phone Address [facility] [employer] [facility] [employer] [id number] [phone] [address] [facility] [place] [phone] as of this encounter
--- OUTSIDE RECORDS SUMMARY | 2023-04-16 16:26 | External Medical Summary | Summary of Care ---
Author Name Unknown Organization [place] [address] Phone Care Team Providers Care Pipe Line Inspector Name Role Phone Vincent Santiago MD Primary Care Provide r Reason for Visit * Reason Comments ADVICE Encounter Details Date Type Department Care Team Description 08/27/2017 Telephone Allergy/Immunology [facility] [address] [facility] [place] [address] Valeriy Milton MD [address] [place] [address] ADVICE Allergies Active Allergy Reactions Severity Noted Date Comments [place] (Diagnostic) Anaphylaxis High 05/21/2017 Banana Edema airway High 01/10/2017 Cat Dander Anaphylaxis High 05/21/2017 Corylus Anaphylaxis High 05/21/2017 Peanut (Diagnostic) Anaphylaxis High 05/21/2017 Sesame Seed (Diagnostic) Anaphylaxis High 05/21/2017 Soy Allergy Anaphylaxis High 01/16/2017 [place] Oil Edema airway High 01/10/2017 Wasp Venom [...] SPRAY) 0.65 % nasal spray Administer 1 [place] into nostril as needed for Congestion. Active [...] Telephone Encounter - Ida Magana LPN - 08/28/2017 2:21 PM EST Placed on Dr. Milton schedule for 09/04/2017 at 10am. * Telephone Encounter - Jackelyn Manuel, SUSAN - 08/27/2017 12:54 PM EST Pt had to cancel her appt today because she is not feeling well and states she has the stomach flu,tried to reschedule pt with Dr. Milton on 10/02, pt declined appt and also did not want to be on a wait list because they never call. Pt wants to be seen sooner because she is and wants to go over her medication with Dr. Milton, please advise in this encounter Plan of Treatment Upcoming Encounters Date Type Specialty Care Team Description 09/04/2017 Office Visit Allergy & Immunology Valeriy Milton MD [address] [place] [address] [phone] 11/27/2017 Office Visit Allergy & Immunology Valeriy Milton MD [address] [place] [address] [phone] Health Maintenance Due Date Last Done Comments [...] / Group Subscriber ID Type Phone Address [facility] [id number] [address] [place] [phone] as of this encounter
--- OUTSIDE RECORDS SUMMARY | 2023-04-16 16:26 | External Medical Summary | Summary of Care ---
Author Name Unknown Organization [place] [address] Phone Care Team Providers Care Airline Station Agent Name Role Phone Vincent Santiago MD Primary Care Provide r Reason for Visit * Reason Comments Allergy Return Discuss medications during Encounter Details Date Type Department Care Team Description 09/04/2017 Office Visit Allergy/Immunology [facility] [address] [place] [address] Valeriy Milton MD [address] [place] [address] [phone] Chronic seasonal allergic rhinitis due to pollen*;Allergic rhinitis due to dust;Chronic seasonal allergic rhinitis due to fungal spores;Non-seasonal allergic rhinitis due to animal hair and dander;Pollen-food allergy syndrome, subsequent encounter;Mild intermittent extrinsic asthma without complication;Peanut allergy;Tree nut allergy; state, incidental Allergies Active Allergy Reactions Severity Noted Date Comments [place] (Diagnostic) Anaphylaxis High 05/21/2017 Banana Edema airway High 01/10/2017 Cat Dander Anaphylaxis High 05/21/2017 Corylus Anaphylaxis High 05/21/2017 Peanut (Diagnostic) Anaphylaxis High 05/21/2017 Sesame Seed (Diagnostic) Anaphylaxis High 05/21/2017 Soy Allergy Anaphylaxis High 01/16/2017 [place] Oil Edema airway High 01/10/2017 Wasp Venom [...] SPRAY) 0.65 % nasal spray Administer 1 [place] into nostril as needed for Congestion. Active meclizine (ANTIVERT) 25 MG TabletIndications :Concussion [...] daily for nasal allergy symptoms 09/04/2017 Active Cyanocobalamin (VITAMIN B-12 ER) 1000 MCG TBCR Take 1 Tab by mouth daily. 10/10/2016 8 Discontinued loratadine ODT (CLARITIN REDITAB) 10 MG TBDP Takes 1/2 tab twice daily 06/27/2017 8 Discontinued fluticasone (FLONASE) 50 MCG/ACT nasal spray Administer 2 Sprays into each nostril daily. 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 Anxiety 03/28/2017 Peanut allergy 03/28/2017 History of insect sting allergy 02/14/20 Intermittent asthma with reliever use up to [...] No Alcohol Use Drinks/Week oz/Week Comments No Currently Estimated Date of Delivery Co mments Yes Sex Assigned at Date Recorded Not on file as of this encounter Last Filed Vital Signs Vital Sign Reading Time Taken Blood Pressure 118/70 09/04/2017 10:09 AM EST Pulse 64 09/04/2017 10:09 AM EST Temperature 35.9 C (96.6 F) 09/04/2017 1 0:09 AM EST Respiratory Rate 18 09/04/2017 10:0 9 AM EST Oxygen Saturation - - Inhaled Oxygen Concentration - - Weight 87 kg (191 lb 12.8 oz) 8 10:09 AM EST Height 165.1 cm (5' 5") 09/04/2017 10:0 9 AM EST Body Mass Index 31.92 09/04/2017 10:09 AM EST in this encounter Instructions * Patient Instructions - Valeriy Milton MD - 09/04/2017 10:48 AM EST Pollen Avoidance Measures: Keep windows, doors closed; use air conditioning; dry clothes in vented dryer, not outside on clothesline; shower/bathe and change clothes right after outdoor activity; avoid outdoor activity during high pollen counts; use HEPA type air filtration system. Mold Avoidance Measures: Indoor: Clean moldy surfaces with a diluted bleach solution or a commercial cold molding press operator; fix waterleaks; reduce indoor humidity to <50% with dehumidifiers or air conditioning. Outdoor: Avoid uncut antonio, working with compost and soil, raking leaves and hay; keep windows anddoors closed; use air conditioning Dust Mite Avoidance Measures: Essential: Encase mattress, pillow, box springs in allergen-impermeable covers; wash bedding weeklyin hot water(>130 degreesF); reduce indoor humidity to <50%; dust weekly and run HEPA type vacuum steam cleaner. Desirable: Remove carpets from bedroom and [...] Progress Notes * Valeriy Milton MD - 09/04/2017 10:48 AM EST Formatting of this note may be different from the original. SUBJECTIVE: Regina abel is evaluated in follow up for her food allergies, allergic rhinitis/conjunctivitis, intermittent asthma, and history of insect sting allergy. She decided to proceed with a course of allergy immunotherapy which was begun through this office 07/22/17. After just 5 weekly injections however she discovered she was . Notified this officeand her allergy immunotherapy injections were discontinued. They are contraindicated during the buildup phase in , as there is a higher risk of systemic anaphylactic reactions during the buildup phase of allergy immunotherapy. She is continuing her Claritin and Flonase as needed. Nasal symptoms are not particularly bothersome this time of the year outside of the main pollen/mold allergy seasons. She is not having significant episodes of wheezing or shortness of breath. Uses albuterol when needed less than twice per week.Asthma triggers have been respiratory infections, exercise, allergen exposure, odors and weather changes. She continues to avoid peanuts, tree nuts and seeds in the interval. No major accidental ingestions. She has some other adverse food reactions; Mandarin oranges cause significant mouth and tongue itching. She does have Benadryl and EpiPen to use on emergency basis. History of significant reaction November, after ingestion of sunflower seeds. Within a few minutes got tightness of chest and shortness of breath. There was lips and throat swelling to the point there was some drooling; facial hives were noted as well. She did not have to go to the emergency room. In Dec, 2015 she had a bagel with soy milk, may have contained sesame seeds. Almost immediately shehad lip burning and swelling. Her mouth became itchy. Her face began to swell and there was itchingand hives over the face and neck. There was throat swelling and difficulty breathing in the chest. She did have to be seen in the emergency room at that time. History of allergic rhinitis/conjunctivitis and asthma that goes back to childhood. Allergy immunotherapy was attempted in this office [...] Current Outpatient Prescriptions Medication Sig Dispense Refill B Complex-C (SUPER B COMPLEX/VITAMIN C) TABS Take by mouth. loratadine ODT (CLARITIN REDITAB) 10 MG TBDP Takes 1/2 tab twice daily fluticasone (FLONASE) 50 MCG/ACT nasal spray Administer 2 Sprays into each nostril daily. 1 Inhaler 11 saline (OCEAN NASAL SPRAY) 0.65 % nasal spray Administer 1 [place] into nostril as needed for Congestion. albuterol (VENTOLIN HFA) 108 (90 BASE) MCG/ACT inhaler Inhale 2 Puffs by mouth every 4 hours asneeded for Cough, Shortness of Breath or Wheezing. 1 Inhaler 3 PredniSONE (DELTASONE) 20 MG Tablet Take 2 tablets as a one time dose for significant mouth/thorat swelling 20 Tab 1 EPINEPHrine, anaphylaxis, (EPI-PEN) 0.3 MG/0.3ML SOAJ injection For a severe reaction: Place orange end against the outer thigh, press firmly, hold in place for 10 seconds and go to the Emergencyroom. 2 Device 0 Cranberry 250 MG CAPS Take 1 Tab by mouth 2 times a day. meclizine (ANTIVERT) 25 MG Tablet Take 1 Tab by mouth 3 times a day as needed for Dizziness. 30 Tab1 diphenhydrAMINE (BENADRYL) 25 MG Capsule Take 2 capsules at onset suspected allergic reaction; may repeat every 4-6 hrs. as needed. 40 Cap 1 albuterol-ipratropium (DUONEB) 2.5-0.5 MG/3ML nebulizer solution Inhale 3 mL by mouth every 6 hoursas needed (wheezing). 60 Vial 5 Review of patient's allergies indicates: Allergen Reactions [place] (Diagnostic) Anaphylaxis Banana Edema airway Cat Dander Anaphylaxis [place] Tree Pollen [Corylus] Anaphylaxis Peanut (Diagnostic) Anaphylaxis Sesame Seed (Diagnostic) Anaphylaxis Soy Allergy Anaphylaxis [place] Oil Edema airway Wasp Venom Edema airway [...] floor and heart hardwood. 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 BP 118/70 | Pulse 64 | Temp (Src) 96.6 (Tympanic) | Resp 18 | Ht 5' 5" (1.651m) | Wt 191 lbs 12.8 oz (87.000kg) | BMI 31.92 kg/m | BSA 2 m | LMP 01/11/2017 PHYSICAL EXAM: GENERAL: [...] no urticaria or angioedema Normal skin quality NEUROLOGIC/PSYCHIATRIC: Mental status - Oriented x's 3 Mood and affect - very anxious OBJECTIVE DATA: Component Latest Ref Rng & [...] Z91.010 8. 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 state, incidental Z33.1 PLAN: Avoidance measures regarding pollens, molds, dust mites and animal danders should be continued. She has a longstanding history of significant allergic rhinitis/conjunctivitis symptoms. During , intranasal steroid therapy with Rhinocort nasal spray 2 squirts in each nostril daily to reduce nasal congestion and postnasal drip recommended. She can add in her oral antihistamine loratadine 10 mg daily especially during the pollen seasons. These medications are safe to use in [...] of her . It is contraindicated in early in during buildup phase because of the increased risk of systemic anaphylactic reactions during this phase of immunotherapy. It could be considered as a future option for her after her is completed. She does have some significant positive skin tests especially to almond, sunflower seeds, peanut and soy. Serum IgE determinations [...] reactions such as she related with mandarin oranges. This can be due to the resemblance of the proteins in some fresh fruits, vegetables, and nuts with tree/weed pollens to which she is highly allergic. Symptoms are almost always localizedto the mouth and throat area and rarely become systemic. These foods should be avoided in their fresh/raw state, but are often tolerated cooked or processed. Treatment of choice is oral benadryl at onset of the mouth/.throat itching. For worsening or more severe symptoms especially with throat tightness, difficulty swallowing or shortness of breath she should use her EpiPen and go to the emergency room. There is a remote history in childhood [...] Up: Return in about 4 months (around 01/02/2018), or if symptoms worsen or fail to [...] above.) in this encounter Nursing Notes * Ida Magana LPN - 09/04/2017 10:08 AM EST The pt has been properly identified by confirmation of name and date of . Patient here to discuss medications during . Patient wonders if can take vitamin with Lutein, says a product of [employer]. Wonders if that is ok to take? in this encounter Plan of Treatment Upcoming Encounters Date Type Specialty Care Team Description 11/27/2017 Office Visit Allergy & Immunology Valeriy Milton MD [address] [place] [address] [phone] 12/27/2017 Office Visit Allergy & Immunology Valeriy Milton MD [address] [place] [address] [phone] Health Maintenance Due Date Last Done Comments [...] initis due to pollen - Primary Allergic rhinitis due to dus t Allergic rhinitis due to other allergen Chronic seasonal allergic rh initis due to fungal spores Non-seasonal allergic rhinit is due to animal hair and dander Pollen-food allergy syndrome , subsequent encounter Mild intermittent extrinsic asthma without complication Peanut allergy Allergy to peanuts Tree nut allergy Allergy to other foods state, incidental in this encounter Insurance Payer Benefit Plan / Group Subscriber ID Type Phone Address [facility]AN [id number] [phone] [facility] [place] [address] as of this encounter
--- OUTSIDE RECORDS SUMMARY | 2023-04-16 16:26 | External Medical Summary | Summary of Care ---
Author Name Unknown Organization [place] [address] Phone Care Team Providers Care Water Jet Operator Name Role Phone Vincent Santiago MD Primary Care Provide r Reason for Visit * Reason Comments Information Encounter Details Date Type Department Care Team Description 08/22/2017 Telephone Allergy/Immunology [facility] [address] [place] [address] Valeriy Milton MD [address] [place] [address] Information Allergies Active Allergy Reactions Severity Noted Date Comments [place] (Diagnostic) Anaphylaxis High 05/21/2017 Banana Edema airway High 01/10/2017 Cat Dander Anaphylaxis High 05/21/2017 Corylus Anaphylaxis High 05/21/2017 Peanut (Diagnostic) Anaphylaxis High 05/21/2017 Sesame Seed (Diagnostic) Anaphylaxis High 05/21/2017 Soy Allergy Anaphylaxis High 01/16/2017 [place] Oil Edema airway High 01/10/2017 Wasp Venom [...] SPRAY) 0.65 % nasal spray Administer 1 [place] into nostril as needed for Congestion. Active [...] Encounter - Beverly Del Angel PA-C - 08/22/2017 3:33 PM EST Noted. * Telephone Encounter - Ida Magana LPN - 08/22/2017 2:36 PM EST Patient came in for allergy injections, and advised this nurse that she is 5-6 weeks . Advised Augie Del Angel and Dr. Milton of such. They state to stop injections for now, since patient just finished the silver bottles, and to wait until after delivery to restart. Patient advised to make the necessary appointment with Augie Del Angel to discuss current allergy medications and safety during . in this encounter Plan of Treatment Upcoming Encounters Date Type Specialty Care Team Description 08/26/2017 Office Visit Allergy & Immunology Valeriy Milton MD [address] [place] [address] [phone] 11/27/2017 Office Visit Allergy & Immunology Valeriy Milton MD [address] [place] [address] [phone] Health Maintenance Due Date Last Done Comments [...] / Group Subscriber ID Type Phone Address [facility] [employer] [facility] FAMILY [facility]AN [id number] [phone] [place] [address] [place] [address] as of this encounter
--- OUTSIDE RECORDS SUMMARY | 2023-04-16 16:26 | External Medical Summary | Summary of Care ---
Author Name Unknown Organization [place] [address] Phone Care Team Providers Care Assistant To The Director Name Role Phone Vincent Santiago MD Primary Care Provide r Reason for Visit * Reason Comments ADVICE Encounter Details Date Type Department Care Team Description 11/08/2017 Telephone Family Practice [facility] [address] [facility] [place] [address] Vincent Santiago MD [address] [place] [address] [phone] ADVICE Allergies Active Allergy Reactions Severity Noted Date Comments [place] (Diagnostic) Anaphylaxis High 05/21/2017 Banana Edema airway High 01/10/2017 Cat Dander Anaphylaxis High 05/21/2017 Corylus Anaphylaxis High 05/21/2017 Peanut (Diagnostic) Anaphylaxis High 05/21/2017 Sesame Seed (Diagnostic) Anaphylaxis High 05/21/2017 Soy Allergy Anaphylaxis High 01/16/2017 [place] Oil Edema airway High 01/10/2017 Wasp Venom [...] SPRAY) 0.65 % nasal spray Administer 1 [place] into nostril as needed for Congestion. Active [...] encounter Miscellaneous Notes * Telephone Encounter - Marybeth Williamson LPN - 11/08/2017 12:01 PM EDT Pt has been feeling palpitations states it pounds out of her chest off/on since last night. She hasSOB she has been feeling like she is going to pass out. No chest pain Pt is going to the ED at this time her Dad will drive her for eval * Telephone Encounter - Sonam Byers OSA - 11/08/2017 11:59 AM EDT Reason for patient's call: racing heart/ shaking Caller was transferred to marybeth at the dedicated phone nurse line. in this encounter Plan of Treatment Upcoming Encounters Date Type Specialty Care Team Description 11/13/2017 Office Visit Gastroenterology Carter Parker MD [address] [place] [address] [phone] 11/27/2017 Office Visit Allergy & Immunology Valeriy Milton MD [address] [place] [address] [phone] 12/27/2017 Office Visit Allergy & Immunology Valeriy Milton MD [address] [place] [address] [phone] Health Maintenance Due Date Last Done Comments PNEUMOCOCCAL 19-64 MEDIUM RI SK (1 of 1 - PPSV23) 2002 PAP SMEAR-EVERY 3 YRS,AGES 21-65 2004 *ASTHMA ACTION PLAN-ADULT YEARLY 08/11/2014 *DEPRESSION SCREENING, ANNUA L FOR PTS 18 AND OVER 09/09/2014 Influenza Vaccine (FLU shot) (#1) 2017 DTaP,Tdap,and Td Vaccines (3 - Td) 01/30/20192008, 02/10/1998 as of this encounter Implants Not on fileas of this encounter Insurance Payer Benefit Plan / Group Subscriber ID Type Phone Address [facility] FAMILY PLAN [id number] [phone] [facility] [place] [phone] as of this encounter
--- OUTSIDE RECORDS SUMMARY | 2023-04-16 16:26 | External Medical Summary | Summary of Care ---
Author Name Unknown Organization [facility] [place] [address] Phone Care Team Providers Care Quality Engineer Name Role Phone Vincent Santiago MD Primary Care Provide r Reason for Visit * Reason Comments Allergy Return Discuss medications during Encounter Details Date Type Department Care Team Description 09/04/2017 Office Visit Allergy/Immunology [facility] [address] [place] [address] Valeriy Milton MD [address] [place] [address] [phone] Chronic seasonal allergic rhinitis due to pollen*;Allergic rhinitis due to dust;Chronic seasonal allergic rhinitis due to fungal spores;Non-seasonal allergic rhinitis due to animal hair and dander;Pollen-food allergy syndrome, subsequent encounter;Mild intermittent extrinsic asthma without complication;Peanut allergy;Tree nut allergy; state, incidental Allergies Active Allergy Reactions Severity Noted Date Comments [place] (Diagnostic) Anaphylaxis High 05/21/2017 Banana Edema airway High 01/10/2017 Cat Dander Anaphylaxis High 05/21/2017 Corylus Anaphylaxis High 05/21/2017 Peanut (Diagnostic) Anaphylaxis High 05/21/2017 Sesame Seed (Diagnostic) Anaphylaxis High 05/21/2017 Soy Allergy Anaphylaxis High 01/16/2017 [place] Oil Edema airway High 01/10/2017 Wasp Venom [...] SPRAY) 0.65 % nasal spray Administer 1 [place] into nostril as needed for Congestion. Active [...] a diluted bleach solution or a commercial bakelite molder; fix waterleaks; reduce indoor humidity to [...] dust weekly and run HEPA type vacuum still cleaner. Desirable: Remove carpets from bedroom and [...] SPRAY) 0.65 % nasal spray Administer 1 [place] into nostril as needed for Congestion. albuterol [...] Review of patient's allergies indicates: Allergen Reactions [place] (Diagnostic) Anaphylaxis Banana Edema airway Cat Dander Anaphylaxis [place] Pollen [Corylus] Anaphylaxis Peanut (Diagnostic) Anaphylaxis Sesame Seed (Diagnostic) Anaphylaxis Soy Allergy Anaphylaxis [place] Oil Edema airway Wasp Venom Edema airway [...] floor and heart hardwood. 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 BP [...] vitamin with Lutein, says a product of [employer]. Wonders if that is ok to take? in this encounter Plan of Treatment Upcoming Encounters Date Type Specialty Care Team Description 11/27/2017 Office Visit Allergy & Immunology Valeriy Milton MD [address] [place] [address] [phone] 12/27/2017 Office Visit Allergy & Immunology Valeriy Milton MD [address] [place] [address] [phone] Health Maintenance Due Date Last Done Comments [...] / Group Subscriber ID Type Phone Address [facility] FAMILY PLAN [id number] [phone] [facility] [place] [address] as of this encounter
--- OUTSIDE RECORDS SUMMARY | 2023-04-16 16:26 | External Medical Summary | Summary of Care ---
Author Name Unknown Organization [place] [address] Phone Care Team Providers Care Md Do Resident Urgent Care Name Role Phone Vincent Santiago MD Primary Care Provide r Reason for Visit * Reason Comments Pharmacy Questions Encounter Details Date Type Department Care Team Description 08/22/2017 Telephone PHARMACY CALL CENTER [address] [facility] [place] [address] [facility] [place] [address] [facility] [place] [address] Pharmacy Questions Allergies Active Allergy Reactions Severity Noted Date Comments [place] (Diagnostic) Anaphylaxis High 05/21/2017 Banana Edema airway High 01/10/2017 Cat Dander Anaphylaxis High 05/21/2017 Corylus Anaphylaxis High 05/21/2017 Peanut (Diagnostic) Anaphylaxis High 05/21/2017 Sesame Seed (Diagnostic) Anaphylaxis High 05/21/2017 Soy Allergy Anaphylaxis High 01/16/2017 [place] Oil Edema airway High 01/10/2017 Wasp Venom [...] SPRAY) 0.65 % nasal spray Administer 1 [place] into nostril as needed for Congestion. Active [...] Miscellaneous Notes * Telephone Encounter - Fartun Marte, [facility] - 08/22/2017 12:01 PM EST Pt is 6 weeks and wanted to know if it is safe to take claritin and flonase nasal spray? Checked medscape and both medications are Category B, made pt aware. Thanks, Fartun Marte, PharmD Staff Pharmacist Pharmacy Refill Call Center [phone] ext [phone] 08/22/2017,12:04 PM in this encounter Plan of Treatment Upcoming Encounters Date Type Specialty Care Team Description 11/27/2017 Office Visit Allergy & Immunology Valeriy Milton MD [address] [place] [address], [place] [address] [phone] Health Maintenance Due Date Last Done Comments [...] / Group Subscriber ID Type Phone Address [facility] [id number] [phone] [facility] [place] [phone] as of this encounter
--- OUTSIDE RECORDS SUMMARY | 2023-04-16 16:26 | External Medical Summary | Summary of Care ---
Author Name Unknown Organization [place] [address] Phone Care Team Providers Care Store Protection Specialist Name Role Phone Vincent Santiago MD Primary Care Provide r Encounter Details Date Type Department Care Team Description 09/04/2017 Scan Encounter Unspecified Department <No scans attached> Allergies Active Allergy Reactions Severity Noted Date Comments [place] (Diagnostic) Anaphylaxis High 05/21/2017 Banana Edema airway High 01/10/2017 Cat Dander Anaphylaxis High 05/21/2017 Corylus Anaphylaxis High 05/21/2017 Peanut (Diagnostic) Anaphylaxis High 05/21/2017 Sesame Seed (Diagnostic) Anaphylaxis High 05/21/2017 Soy Allergy Anaphylaxis High 01/16/2017 [place] Oil Edema airway High 01/10/2017 Wasp Venom [...] SPRAY) 0.65 % nasal spray Administer 1 [place] into nostril as needed for Congestion. Active [...] Immunology Valeriy Milton MD [address] [place] [address] [phone] 12/27/2017 Office Visit Allergy & Immunology Valeriy Milton MD [address] [place], [place] [address] [phone] Health Maintenance Due Date Last Done Comments [...] ID Type Phone Address [facility] [id number] [phone] [facility] [place] [phone] as of this encounter
--- OUTSIDE RECORDS SUMMARY | 2023-04-16 16:26 | External Medical Summary | Summary of Care ---
Author Name Unknown Organization [facility] [address] Phone Care Team Providers Care Criminal Defense Lawyer Name Role Phone Vincent Santiago MD Primary Care Provide r Reason for Visit * Reason Comments MEDICATION PROBLEM Encounter Details Date Type Department Care Team Description 09/04/2017 Telephone Allergy/Immunology [facility] [address] [place] [address] Valeriy Milton MD 200 [place], [place] [id number] MEDICATION PROBLEM Allergies Active Allergy Reactions Severity Noted Date Comments [place] (Diagnostic) Anaphylaxis High 05/21/2017 Banana Edema airway High 01/10/2017 Cat Dander Anaphylaxis High 05/21/2017 Corylus Anaphylaxis High 05/21/2017 Peanut (Diagnostic) Anaphylaxis High 05/21/2017 Sesame Seed (Diagnostic) Anaphylaxis High 05/21/2017 Soy Allergy Anaphylaxis High 01/16/2017 [place] Oil Edema airway High 01/10/2017 Wasp Venom [...] SPRAY) 0.65 % nasal spray Administer 1 [place] into nostril as needed for Congestion. Active [...] Telephone Encounter - Ida Magana LPN - 09/04/2017 12:34 PM EST Received word from patient insurance the Budesonide (Rhinocort) has been approved for the life of patient plan. Pharmacy and patient advised of such. Matter taken care of. * Telephone Encounter - Ida Magana LPN - 09/04/2017 11:40 AM EST Faxed prior auth in to [facility] Family. Will now await approval/denial of such. * Telephone Encounter - Ida Magana CORINNE - 09/04/2017 11:16 AM JONNY Spoke with Clare at [facility]. She states we need to fill out and fax in the PA form to them. They will review and will get back to us on approval/denial of such. * Telephone Encounter - Timoteo Ogden CPhT - 09/04/2017 11:07 AM JONNY [facility] stating the patients Budesonide (RHINOCORT AQUA) 32 MCG/ACT nasal spray is notcovered by the patients insurance. Stating this patient has Medicaid insurance which will more thanlikely pay for Flonase as an alternative. [facility] can be reached at [phone]. Please advise. Thanks, Timoteo Ogden Ophthalmic Asst Pharmacy Refill Call Center 09/04/2017,11:09 AM in this encounter Plan of Treatment Upcoming Encounters Date Type Specialty Care Team Description 11/27/2017 Office Visit Allergy & Immunology Valeriy Milton MD [address] [facility] [place] [address] [phone] 12/27/2017 Office Visit Allergy & Immunology Valeriy Milton MD [address] [facility] [place] [address] [phone] Health Maintenance Due Date Last Done Comments PNEUMOCOCCAL 19-64 MEDIUM RI SK (1 of 1 - PPSV23) 2002 PAP SMEAR-EVERY 3 YRS,AGES 21-65 2004 *ASTHMA ACTION PLAN-ADULT YEARLY 08/11/2014 *DEPRESSION SCREENINGJENA FOR PTS 18 AND OVER 09/09/2014 Influenza Vaccine (FLU shot) (#1) 2017 TETANUS EVERY 10 YRS-TDAP (BOOSTRIX/ADACEL) SUGGESTED IF NOT RECEIVED IN PAST 01/30/2019 01/30/2009, 02/10/1998 as of this encounter Implants Not on fileas of this encounter Insurance Payer Benefit Plan / Group Subscriber ID Type Phone Address [facility] [id number] [phone] [phone] as of this encounter
--- OUTSIDE RECORDS SUMMARY | 2023-04-16 16:26 | External Medical Summary | Summary of Care ---
Author Name Unknown Organization [place] [address] Phone Care Team Providers Care Fingernail Former Name Role Phone Vincent Santiago MD Primary Care Provide r Reason for Visit * Reason Comments MEDICATION PROBLEM Encounter Details Date Type Department Care Team Description 09/04/2017 Telephone Allergy/Immunology [facility] [address] [place] [address] Valeriy Milton MD 200 [place], [place] [id number] MEDICATION PROBLEM Allergies Active Allergy Reactions Severity Noted Date Comments [place] (Diagnostic) Anaphylaxis High 05/21/2017 Banana Edema airway High 01/10/2017 Cat Dander Anaphylaxis High 05/21/2017 Corylus Anaphylaxis High 05/21/2017 Peanut (Diagnostic) Anaphylaxis High 05/21/2017 Sesame Seed (Diagnostic) Anaphylaxis High 05/21/2017 Soy Allergy Anaphylaxis High 01/16/2017 [place] Oil Edema airway High 01/10/2017 Wasp Venom [...] SPRAY) 0.65 % nasal spray Administer 1 [place] into nostril as needed for Congestion. Active [...] AM EST Faxed prior auth in to [facility] Family. Will now await approval/denial of such. * Telephone Encounter - Ida Magana CORINNE - 09/04/2017 11:16 AM JONNY Spoke with Clare at [facility]. She states we need to fill out [...] thanlikely pay for Flonase as an alternative. [facility] can be reached at [phone]. Please advise. Thanks, Timoteo Ogden [facility] Refill Call Center 09/04/2017,11:09 AM in this encounter Plan of Treatment Upcoming Encounters Date Type Specialty Care Team Description 11/27/2017 Office Visit Allergy & Immunology Valeriy Milton MD [address] [place] [address] [phone] 12/27/2017 Office Visit Allergy & Immunology Valeriy Milton MD [address] [place] [address] [phone] Health Maintenance Due Date Last Done Comments [...] / Group Subscriber ID Type Phone Address [facility] [id number] [address] [phone] as of this encounter
--- OUTSIDE RECORDS SUMMARY | 2023-04-16 16:26 | External Medical Summary | Summary of Care ---
Author Name Unknown Organization [place] [address] Phone Care Team Providers Care Oil Field Equipment Mechanic Name Role Phone Vincent Santiago MD Primary Care Provide r Encounter Details Date Type Department Care Team Description 09/03/2017 Orders Only Family Practice [facility] [address] [place] [address] Vincent Santiago MD [address] [place] [address] [phone] Allergies Active Allergy Reactions Severity Noted Date Comments [place] (Diagnostic) Anaphylaxis High 05/21/2017 Banana Edema airway High 01/10/2017 Cat Dander Anaphylaxis High 05/21/2017 Corylus Anaphylaxis High 05/21/2017 Peanut (Diagnostic) Anaphylaxis High 05/21/2017 Sesame Seed (Diagnostic) Anaphylaxis High 05/21/2017 Soy Allergy Anaphylaxis High 01/16/2017 [place] Oil Edema airway High 01/10/2017 Wasp Venom [...] SPRAY) 0.65 % nasal spray Administer 1 [place] into nostril as needed for Congestion. Active [...] Allergy & Immunology Valeriy Milton MD 200 [place] [address] [phone] 11/27/2017 Office Visit Allergy & Immunology Valeriy Milton MD 200 [place] [address] [phone] Pending Results Name Priority Associated Diagnoses Date/Ti me CHLAMYDIA AMPLIFIED Routine 08/29/19 18 12:00 AM EST Health Maintenance Due Date Last Done Comments [...] / Group Subscriber ID Type Phone Address [facility] [id number] [phone] [address] [facility] [place] [address] as of this encounter
--- OUTSIDE RECORDS SUMMARY | 2023-04-16 16:26 | External Medical Summary | Summary of Care ---
Author Name Unknown Organization [place] [address] Phone Care Team Providers Care Bath House Attendant Name Role Phone Vincent Santiago MD Primary Care Provide r Encounter Details Date Type Department Care Team Description 11/12/2017 Orders Only Family Practice [facility] [address] [place] [address] Vincent Santiago MD [address] [place] [address] [phone] Allergies Active Allergy Reactions Severity Noted Date Comments [place] (Diagnostic) Anaphylaxis High 05/21/2017 Banana Edema airway High 01/10/2017 Cat Dander Anaphylaxis High 05/21/2017 Corylus Anaphylaxis High 05/21/2017 Peanut (Diagnostic) Anaphylaxis High 05/21/2017 Sesame Seed (Diagnostic) Anaphylaxis High 05/21/2017 Soy Allergy Anaphylaxis High 01/16/2017 [place] Oil Edema airway High 01/10/2017 Wasp Venom [...] SPRAY) 0.65 % nasal spray Administer 1 [place] into nostril as needed for Congestion. Active [...] Office Visit Gastroenterology Carter Parker MD [address] [facility] [place] [address] [phone] 11/27/2017 Office Visit Allergy & Immunology Valeriy Milton MD [address] [place] [address] [phone] 12/27/2017 Office Visit Allergy & Immunology Valeriy Milton MD [address] [place] [address] [phone] Pending Results Name Priority Associated Diagnoses Date/Ti me ROUTINE URINALYSIS Routine 8 12:00 AM EDT Health Maintenance Due Date [...] / Group Subscriber ID Type Phone Address [facility] [id number] [phone] [address] [facility] [place] [phone] as of this encounter
--- OUTSIDE RECORDS SUMMARY | 2023-04-16 16:27 | External Medical Summary | Summary of Care ---
Author Name Unknown Organization [place] [address] Phone Care Team Providers Care Seniour Insight Manager Name Role Phone Vincent Santiago MD Primary Care Provide r Reason for Visit * Reason Comments ALLERGY INJECTION Encounter Details Date Type Department Care Team Description 08/05/2017 Immunization/In jection Allergy/Immunology [facility] [address] [place] [address] [facility] [address] [place] [address] Chronic allergic rhinitis, unspecified seasonality, unspecified trigger*;Mild intermittent extrinsic asthma without complication Allergies Active Allergy Reactions Severity Noted Date Comments [place] (Diagnostic) Anaphylaxis High 05/21/2017 Banana Edema airway High 01/10/2017 Cat Dander Anaphylaxis High 05/21/2017 Corylus Anaphylaxis High 05/21/2017 Peanut (Diagnostic) Anaphylaxis High 05/21/2017 Sesame Seed (Diagnostic) Anaphylaxis High 05/21/2017 Soy Allergy Anaphylaxis High 01/16/2017 [place] Oil Edema airway High 01/10/2017 Wasp [...] SPRAY) 0.65 % nasal spray Administer 1 [place] into nostril as needed for Congestion. Active [...] as of this encounter Progress Notes * Lroene Dhaliwal LPN - 08/05/2017 11:46 AM EST Pre-injection Questionnaire Patient identified [...] Encounters Date Type Specialty Care Team Description 08/05/2017 Immunization/Inj ection Allergy & Immunology [facility] [address] [place] [address] Chronic allergic rhinitis, unspecified seasonality, unspecified trigger*;Mild intermittent extrinsic asthma without complication 11/27/2017 Office Visit Allergy & Immunology Valeriy Milton MD [address] [place] [address] [phone] Health Maintenance Due Date Last Done Comments [...] Group Subscriber ID Type Phone Address [facility] [employer] [facility] [id number] [phone] [address] [facility] [place] [phone] as of this encounter
--- OUTSIDE RECORDS SUMMARY | 2023-04-16 16:27 | External Medical Summary | Summary of Care ---
Author Name Unknown Organization [place] [address] Phone Care Team Providers Care Door Worker Name Role Phone Vincent Santiago MD Primary Care Provide r Reason for Visit * Reason Comments ALLERGY INJECTION Encounter Details Date Type Department Care Team Description 08/08/2017 Immunization/In jection Allergy/Immunology [facility] [address] [place] [address] [facility] [address] [place] [address] Chronic allergic rhinitis, unspecified seasonality, unspecified trigger*;Mild intermittent extrinsic asthma without complication Allergies Active Allergy Reactions Severity Noted Date Comments [place] (Diagnostic) Anaphylaxis High 05/21/2017 Banana Edema airway High 01/10/2017 Cat Dander Anaphylaxis High 05/21/2017 Corylus Anaphylaxis High 05/21/2017 Peanut (Diagnostic) Anaphylaxis High 05/21/2017 Sesame Seed (Diagnostic) Anaphylaxis High 05/21/2017 Soy Allergy Anaphylaxis High 01/16/2017 [place] Oil Edema airway High 01/10/2017 Wasp Venom [...] SPRAY) 0.65 % nasal spray Administer 1 [place] into nostril as needed for Congestion. Active [...] Vital Sign Reading Time Taken Blood Pressure 112/78 08/08/2017 1:15 PM EST Pulse 64 08/08/2017 1:15 PM EST Temperature - - Respiratory Rate 16 08/08/2017 1:15 PM EST Oxygen Saturation - - Inhaled Oxygen Concentration - - Weight - - Height - - Body Mass Index - - in this encounter Progress Notes * Ida Magana LPN - 08/08/2017 12:40 PM EST Pre-injection Questionnaire Patient identified [...] Allergy & Immunology Valeriy Milton MD 200 [facility] [place] [address] [phone] Health Maintenance Due Date Last Done Comments [...] / Group Subscriber ID Type Phone Address [facility] [id number] [phone] [address] [facility] [place] [phone] as of this encounter
--- OUTSIDE RECORDS SUMMARY | 2023-04-16 16:27 | External Medical Summary | Summary of Care ---
Author Name Unknown Organization [place] [address] Phone Care Team Providers Care Director Women Name Role Phone Vincent Santiago MD Primary Care Provide r Reason for Visit * Reason Comments ALLERGY INJECTION Encounter Details Date Type Department Care Team Description 07/29/2017 Immunization/In jection Allergy/Immunology [facility] [address] [place] [address] [facility] [address] [place] [address] Chronic allergic rhinitis, unspecified seasonality, unspecified trigger*;Mild intermittent extrinsic asthma without complication Allergies Active Allergy Reactions Severity Noted Date Comments [place] (Diagnostic) Anaphylaxis High 05/21/2017 Banana Edema airway High 01/10/2017 Cat Dander Anaphylaxis High 05/21/2017 Corylus Anaphylaxis High 05/21/2017 Peanut (Diagnostic) Anaphylaxis High 05/21/2017 Sesame Seed (Diagnostic) Anaphylaxis High 05/21/2017 Soy Allergy Anaphylaxis High 01/16/2017 [place] Oil Edema airway High 01/10/2017 Wasp Venom [...] SPRAY) 0.65 % nasal spray Administer 1 [place] into nostril as needed for Congestion. Active [...] Progress Notes * Liz Cr RN - 07/29/2017 6:08 PM EST Pre-injection Questionnaire Patient identified by [...] Allergy & Immunology Valeriy Milton MD 200 [place] [address] Health Maintenance Due Date Last [...] / Group Subscriber ID Type Phone Address [facility] [employer] [facility] [id number] [phone] [phone] as of this encounter
--- OUTSIDE RECORDS SUMMARY | 2023-04-16 16:27 | External Medical Summary | Summary of Care ---
Author Name Unknown Organization [place] [address] Phone Care Team Providers Care Pattern Chain Maker Supervisor Name Role Phone Vincent Santiago MD Primary Care Provide r Reason for Visit * Reason Comments ALLERGY INJECTION Encounter Details Date Type Department Care Team Description 08/05/2017 Immunization/In jection Allergy/Immunology [facility] [address] [place] [address] [facility] [address] [place] [address] Chronic allergic rhinitis, unspecified seasonality, unspecified trigger*;Mild intermittent extrinsic asthma without complication Allergies Active Allergy Reactions Severity Noted Date Comments [place] (Diagnostic) Anaphylaxis High 05/21/2017 Banana Edema airway High 01/10/2017 Cat Dander Anaphylaxis High 05/21/2017 Corylus Anaphylaxis High 05/21/2017 Peanut (Diagnostic) Anaphylaxis High 05/21/2017 Sesame Seed (Diagnostic) Anaphylaxis High 05/21/2017 Soy Allergy Anaphylaxis High 01/16/2017 [place] Oil Edema airway High 01/10/2017 Wasp Venom [...] SPRAY) 0.65 % nasal spray Administer 1 [place] into nostril as needed for Congestion. Active [...] of this encounter Progress Notes * Lorene Weiss LPN - 08/05/2017 12:19 PM EST Pre-injection Questionnaire Patient identified by [...] located in Allergy Injections CPSL Flowsheet* * Lorene Weiss LPN - 08/05/2017 11:46 AM EST Pre-injection [...] Allergy Injections CPSL Flowsheet* in this encounter Miscellaneous Notes * Addendum Note - Lorene Weiss LPN - 08/05/2017 12:21 PM EST Addended by: LORENE WEISS on: 08/05/2017 12:21 PM Modules accepted: SmartSet in this encounter Plan of Treatment Upcoming Encounters Date Type Specialty Care Team Description 08/05/2017 Immunization/Inj ection Allergy & Immunology [facility] [address] [place], [place] [address] Chronic allergic rhinitis, unspecified seasonality, unspecified trigger*;Mild intermittent extrinsic asthma without complication 11/27/2017 Office Visit Allergy & Immunology Valeriy Milton MD [address] [place] [address] [phone] Health Maintenance Due Date Last Done Comments [...] / Group Subscriber ID Type Phone Address [facility] [id number] [phone] [address] [facility] [place] [address] as of this encounter
--- OUTSIDE RECORDS SUMMARY | 2023-04-16 16:27 | External Medical Summary | Summary of Care ---
Author Name Unknown Organization [place] [address] Phone Care Team Providers Care Senior Contracts Administrator Name Role Phone Vincent Santiago MD Primary Care Provide r Reason for Visit * Reason Comments After Hours Call Encounter Details Date Type Department Care Team Description 07/18/2017 Telephone Family Practice [facility] [address] [place] [address] Eliu May III, MD 200 [place] [address] [phone] After Hours Call Allergies Active Allergy Reactions Severity Noted Date Comments [place] (Diagnostic) Anaphylaxis High 05/21/2017 Banana Edema airway High 01/10/2017 Cat Dander Anaphylaxis High 05/21/2017 Corylus Anaphylaxis High 05/21/2017 Peanut (Diagnostic) Anaphylaxis High 05/21/2017 Sesame Seed (Diagnostic) Anaphylaxis High 05/21/2017 Soy Allergy Anaphylaxis High 01/16/2017 [place] Oil Edema airway High 01/10/2017 Wasp Venom [...] SPRAY) 0.65 % nasal spray Administer 1 [place] into nostril as needed for Congestion. Active [...] encounter Miscellaneous Notes * Telephone Encounter - Eliu May III, MD - 07/18/2017 8:10 AM EST Noted bright red blood in her stool history of gallbladder surgery a year ago stools have not been painful are 6 mm burst or currently feeling ill has some nausea she is not lightheaded or dizzy no chest pain or breathing problems will contact primary care office this morning for appointment in this encounter Plan of Treatment Upcoming Encounters Date Type Specialty Care Team Description 11/27/2017 Office Visit Allergy & Immunology Valeriy Milton MD [address] [place] [address] [phone] Health Maintenance Due Date Last Done Comments [...] / Group Subscriber ID Type Phone Address [facility] [id number] [phone] [address] [facility] [place] [phone] as of this encounter
--- OUTSIDE RECORDS SUMMARY | 2023-04-16 16:27 | External Medical Summary | Summary of Care ---
Author Name Unknown Organization [place] [address] Phone Care Team Providers Care Foundry Process Engineer Name Role Phone Vincent Santiago MD Primary Care Provide r Reason for Visit * Reason Comments ALLERGY INJECTION Encounter Details Date Type Department Care Team Description 07/22/2017 Immunization/In jection Allergy/Immunology [facility] [address] [place] [address] [facility] [address] [place] [address] Chronic allergic rhinitis, unspecified seasonality, unspecified trigger*;Mild intermittent extrinsic asthma without complication Allergies Active Allergy Reactions Severity Noted Date Comments [place] (Diagnostic) Anaphylaxis High 05/21/2017 Banana Edema airway High 01/10/2017 Cat Dander Anaphylaxis High 05/21/2017 Corylus Anaphylaxis High 05/21/2017 Peanut (Diagnostic) Anaphylaxis High 05/21/2017 Sesame Seed (Diagnostic) Anaphylaxis High 05/21/2017 Soy Allergy Anaphylaxis High 01/16/2017 [place] Oil Edema airway High 01/10/2017 Wasp Venom [...] [place] into nostril as needed for Congestion. Active [...] Progress Notes * Lorene Dhaliwal LPN - 07/22/2017 6:34 PM EST Pre-injection Questionnaire Patient identified by stating name and birthdate: Yes 1. Antihistamines taken prior to injection? yes (If no, may offer the patient Benadryl at 0.5mg/kg rounded to nearest 12.5mg) 2. Have you had increased asthma symptoms (chest tightness, wheezing, coughing, shortness of breath) in the past week? Yes (anxiety) 3. Have you had allergy symptoms,a cold, respiratory tract infection,fever or flu-like symptoms in the past week? Yes allergy 4. Did you have any increased allergy or asthma symptoms, hives, generalized itching within 12 hours of receiving your last injection or swelling that persisted in the next day? No first injections 5. Are you on any new medications [...] Allergy & Immunology Valeriy Milton MD [address] [place] [address] [phone] Health Maintenance Due Date Last Done Comments PNEUMOCOCCAL 19-64 MEDIUM RI SK (1 of 1 - PPSV23) 2002 PAP SMEAR-EVERY 3 YRS,AGES 21-65 2004 *ASTHMA ACTION PLAN-ADULT YEARLY 08/11/2014 *DEPRESSION SCREENING, NADEGEUA Stephanie FOR PTS 18 [...] / Group Subscriber ID Type Phone Address [facility] [employer] [facility] [id number] [phone] [place] [address] [phone] as of this encounter
--- OUTSIDE RECORDS SUMMARY | 2023-04-16 16:27 | External Medical Summary | Summary of Care ---
Author Name Unknown Organization [place] [address] Phone Care Team Providers Care Solderer Assembly Repair Name Role Phone Vincent Santiago MD Primary Care Provide r Reason for Visit * Reason Comments ALLERGY INJECTION Encounter Details Date Type Department Care Team Description 08/08/2017 Immunization/In jection Allergy/Immunology [facility] [address] [place] [address] [facility] [address] [place] [address] Chronic allergic rhinitis, unspecified seasonality, unspecified trigger*;Mild intermittent extrinsic asthma without complication Allergies Active Allergy Reactions Severity Noted Date Comments [place] (Diagnostic) Anaphylaxis High 05/21/2017 Banana Edema airway High 01/10/2017 Cat Dander Anaphylaxis High 05/21/2017 Corylus Anaphylaxis High 05/21/2017 Peanut (Diagnostic) Anaphylaxis High 05/21/2017 Sesame Seed (Diagnostic) Anaphylaxis High 05/21/2017 Soy Allergy Anaphylaxis High 01/16/2017 [place] Oil Edema airway High 01/10/2017 Wasp Venom [...] SPRAY) 0.65 % nasal spray Administer 1 [place] into nostril as needed for Congestion. Active [...] Allergy & Immunology Valeriy Milton MD 200 [facility] [place] [place] [address] [phone] Health Maintenance Due Date Last Done Comments [...] Type Phone Address [facility] [id number] [phone] [address] [facility] [place] [phone] as of this encounter
--- OUTSIDE RECORDS SUMMARY | 2023-04-16 16:27 | External Medical Summary | Summary of Care ---
Author Name Unknown Organization [place] [address] Phone Care Team Providers Care Air Export Logistics Manager Name Role Phone Vincent Santiago MD Primary Care Provide r Reason for Visit * Reason Comments ALLERGY INJECTION Encounter Details Date Type Department Care Team Description 08/05/2017 Immunization/In jection Allergy/Immunology [facility] [address] [place] [address] [facility] [address] [place] [address] Chronic allergic rhinitis, unspecified seasonality, unspecified trigger*;Mild intermittent extrinsic asthma without complication Allergies Active Allergy Reactions Severity Noted Date Comments [place] (Diagnostic) Anaphylaxis High 05/21/2017 Banana Edema airway High 01/10/2017 Cat Dander Anaphylaxis High 05/21/2017 Corylus Anaphylaxis High 05/21/2017 Peanut (Diagnostic) Anaphylaxis High 05/21/2017 Sesame Seed (Diagnostic) Anaphylaxis High 05/21/2017 Soy Allergy Anaphylaxis High 01/16/2017 [place] Oil Edema airway High 01/10/2017 Wasp Venom [...] SPRAY) 0.65 % nasal spray Administer 1 [place] into nostril as needed for Congestion. Active [...] Progress Notes * Lorene Dhaliwal LPN - 08/05/2017 11:46 AM EST [...] Immunology Nurse [facility] [address] [place] [address] Chronic allergic rhinitis, unspecified seasonality, unspecified trigger*;Mild intermittent extrinsic asthma without complication 11/27/2017 Office Visit Allergy & Immunology Valeriy Milton MD [address] [place] [address] [phone] Health Maintenance Due Date Last Done Comments [...] Group Subscriber ID Type Phone Address [facility] [employer] [facility] [id number] [phone] [address] [facility] [place] [phone] as of this encounter
--- OUTSIDE RECORDS SUMMARY | 2023-04-16 16:28 | External Medical Summary ---
Author Name Unknown Address [address] [phone] Phone Organization K01[facility] [address] [id number] Laboratory Report Ordering Provider Test Date Status ANAYELI MOYA DO 10/05/2016 13:47:00 Final Obs # Observation Date Value Abnormality Reference Status Performing Location 0 Ferritin 10/06/2016 00:17 122.0 13-150 Final [facility] [address] [facility] [address]
--- OUTSIDE RECORDS SUMMARY | 2023-04-16 16:28 | External Medical Summary | Summary of Care ---
Author Name Unknown Organization [place] [address] Phone Care Team Providers Care Shore Man Name Role Phone Vincent Santiago MD Primary Care Provide r Reason for Visit * Reason Comments ADVICE Encounter Details Date Type Department Care Team Description 07/15/2017 Telephone Allergy/Immunology [facility] [address] [place] [address] Valeriy Milton MD [address] [place] [address] ADVICE Allergies Active Allergy Reactions Severity Noted Date Comments [place] (Diagnostic) Anaphylaxis High 05/21/2017 Banana Edema airway High 01/10/2017 Cat Dander Anaphylaxis High 05/21/2017 Corylus Anaphylaxis High 05/21/2017 Peanut (Diagnostic) Anaphylaxis High 05/21/2017 Sesame Seed (Diagnostic) Anaphylaxis High 05/21/2017 Soy Allergy Anaphylaxis High 01/16/2017 [place] Oil Edema airway High 01/10/2017 Wasp Venom [...] SPRAY) 0.65 % nasal spray Administer 1 [place] into nostril as needed for Congestion. Active [...] Allergy & Immunology Valeriy Milton MD [address] [place] [address] [phone] Health Maintenance Due Date Last Done Comments [...] / Group Subscriber ID Type Phone Address [facility] [id number] [phone] [address] [place] [facility] [place] [address] as of this encounter
--- OUTSIDE RECORDS SUMMARY | 2023-04-16 16:28 | External Medical Summary ---
Author Name Unknown Address [address] [place], [place] [address] Phone Organization K09:[facility] [address] [place] [address] Laboratory Report Ordering Provider Test Date Status ANAYELI MOYA DO 10/05/2016 13:47:00 Final Obs # Observation Date Value Abnormality Reference Status Performing Location 0 WBC, Total 10/05/2016 13:52 6.19 4.00-10.80 Final [facility] [address] [place] [address] 1 RBC 10/05/2016 13:52 4.17 3.85-5.15 Final 2 Hemoglobin 10/05/2016 13:52 12.5 12.0-15.3 Final 3 HCT 10/05/2016 13:52 37.8 36.0-45.2 Final 4 MCV 10/05/2016 13:52 90.6 81.5-97.5 Final 5 MCH 10/05/2016 13:52 30.0 27.0-34.0 Final 6 MCHC 10/05/2016 13:52 33.1 32.0-36.0 Final 7 RDW 10/05/2016 13:52 13.4 11.5-15.5 Final 8 Platelets 10/05/2016 13:52 236 140-400 Final 9 MPV 10/05/2016 13:52 9.5 6.6-11.1 Final
--- OUTSIDE RECORDS SUMMARY | 2023-04-16 16:28 | External Medical Summary ---
Author Name Unknown Address [address] [place] [address] Phone Organization [id number]:[facility] Delvin Aquino [address] [place] [address] [place] [address] Laboratory Report Ordering Provider Test Date Status GAURAV HARPER 10/10/2016 15:01:00 Final Obs # Observation Date Value Abnormality Reference Status Performing Location 0 BUN 10/10/2016 15:45 10 6-20 Final [facility] Delvin Aquino [address] [facility] [place] [address] 1 Creatinine 10/10/2016 15:45 0.7 0.5-1.0 Final
--- OUTSIDE RECORDS SUMMARY | 2023-04-16 16:28 | External Medical Summary ---
Author Name Unknown Address [address] [phone] Phone Organization K01:[facility] [address] [id number] Laboratory Report Ordering Provider Test Date Status LAKESHIA PEARCEUJLIO 02/13/2017 11:03:00 Final Observation Date Value Abnormality Reference Status IgE 02/14/2017 12:44 77.5 0-87 Fin al Performing Location [facility] [address] [facility] [address]
--- OUTSIDE RECORDS SUMMARY | 2023-04-16 16:28 | External Medical Summary ---
Author Name Unknown Address Unknown Organization : Laboratory Report Ordering Provider Test Date Status COMPA GARCIA 01/10/2017 13:49:00 Final Observation Date Value Abnormality Reference Status Source 01/10/2017 13:49 CLEAN CATCH URINE Final Bacteria identified in Unspecified specimen by Culture 01/11/2017 13:59 LESS THAN 10,000 COLONIES/ML MIXED NORMAL GEORGE Final REPORT STATUS 01/11/2017 13:59 01/11/2017 FINAL Final Performing Location
--- OUTSIDE RECORDS SUMMARY | 2023-04-16 16:28 | External Medical Summary ---
Author Name Unknown Address [address] [phone] Phone Organization K[facility] [address] [id number] Laboratory Report Ordering Provider Test Date Status GAURAV HARPER 10/10/2016 15:01:00 Final Obs # Observation Date Value Abnormality Reference Status Performing Location 0 Lipase 10/10/2016 22:41 27 16-63 Final [facility] [address] [facility] [address]
--- OUTSIDE RECORDS SUMMARY | 2023-04-16 16:28 | External Medical Summary | Summary of Care ---
Author Name Unknown Organization [place] [address] Phone Care Team Providers Care Mine Expert Name Role Phone Vincent Santiago MD Primary Care Provide r Reason for Visit * Reason Comments HEAD INJURY Encounter Details Date Type Department Care Team Description 06/24/2017 Telephone Family Practice [facility] [address] [place] [address] Carson Zuniga, 200 [place] [address] [phone] HEAD INJURY Allergies Active Allergy Reactions Severity Noted Date Comments [place] (Diagnostic) Anaphylaxis High 05/21/2017 Banana Edema airway High 01/10/2017 Cat Dander Anaphylaxis High 05/21/2017 Corylus Anaphylaxis High 05/21/2017 Peanut (Diagnostic) Anaphylaxis High 05/21/2017 Sesame Seed (Diagnostic) Anaphylaxis High 05/21/2017 Soy Allergy Anaphylaxis High 01/16/2017 [place] Oil Edema airway High 01/10/2017 Wasp Venom [...] mouth/thorat swelling 20 Tab 1 02/13/2017 Active loratadine ODT (CLARITIN REDITAB) 10 MG TBDP Pt takes 1/2 tab daily 03/26/2017 Active saline (OCEAN NASAL SPRAY) 0.65 % nasal spray Administer 1 [place] into nostril as needed for Congestion. Active meclizine (ANTIVERT) 25 MG TabletIndications:Co ncussion without loss of consciousness, subsequent encounter,Vertigo Take 1 Tab by mouth 3 times a day as needed for Dizziness. 30 Tab 1 05/21/2017 Active as of this encounter Active Problems [...] Encounters Date Type Specialty Care Team Description 06/27/2017 Office Visit Allergy & Immunology Valeriy Milton MD [address] [facility] [place] [address] Health Maintenance Due Date Last Done [...] / Group Subscriber ID Type Phone Address [facility] [id number] [phone] [address] [place] [phone] as of this encounter
--- OUTSIDE RECORDS SUMMARY | 2023-04-16 16:28 | External Medical Summary ---
Author Name Unknown Address [facility] [address] [phone] Phone Organization K01:[place] [id number] Laboratory Report Ordering Provider Test Date Status LAKESHIA PEARCEJULIO 02/13/2017 11:03:00 Final Observation Date Value Abnormality Reference Status [place]oy[place] IgE 02/14/2017 13:15 0.25 Above high normal <0. 1 Final Performing Location [address] [address]
--- OUTSIDE RECORDS SUMMARY | 2023-04-16 16:28 | External Medical Summary | Summary of Care ---
Author Name Unknown Organization [facility] [place] [address] Phone Care Team Providers Care Herb Digger Name Role Phone Vincent Santiago MD Primary Care Provide r Reason for Visit * Reason Comments Allergy Serum Encounter Details Date Type Department Care Team Description 07/10/2017 Immunization/Inj ection Allergy/Immunology [facility] [address] [place] [address] [facility] [address] [place] [address] Allergic rhinitis* Allergies Active Allergy Reactions Severity Noted Date Comments [place] (Diagnostic) Anaphylaxis High 05/21/2017 Banana Edema airway High 01/10/2017 Cat Dander Anaphylaxis High 05/21/2017 Corylus Anaphylaxis High 05/21/2017 Peanut (Diagnostic) Anaphylaxis High 05/21/2017 Sesame Seed (Diagnostic) Anaphylaxis High 05/21/2017 Soy Allergy Anaphylaxis High 01/16/2017 [place] Oil Edema airway High 01/10/2017 Wasp Venom [...] SPRAY) 0.65 % nasal spray Administer 1 [place] into nostril as needed for Congestion. Active [...] Visit Allergy & Immunology Valeriy Milton MD [address] [place] [address] [phone] Scheduled Tests Name Priority Associated Diagnoses [facility] ([place] MM PRAC) Routine Allergic rhinitis Ordered: 07/10/2017 Health Maintenance Due Date Last Done Comments [...] this encounter Visit Diagnoses Diagnosis Allergic rhinitis - Primary Allergic rhinitis, cause unspecified in this encounter Insurance Payer Benefit Plan / Group Subscriber ID Type Phone Address [facility] [id number] [phone] [address] [facility] [place] [phone] as of this encounter
--- OUTSIDE RECORDS SUMMARY | 2023-04-16 16:28 | External Medical Summary | Summary of Care ---
Author Name Unknown Organization [place] [address] Phone Care Team Providers Care Algology Teacher Name Role Phone Vincent Santiago MD Primary Care Provide r Reason for Visit * Reason Comments ADVICE ALLERGY INJECTION Encounter Details Date Type Department Care Team Description 07/05/2017 Telephone Allergy/Immunology [facility] [address] [facility] [address] [place] [address] Valeriy Milton MD [address] [place], [place] [id number] ADVICE; ALLERGY INJECTION Allergies Active Allergy Reactions Severity Noted Date Comments [place] (Diagnostic) Anaphylaxis High 05/21/2017 Banana Edema airway High 01/10/2017 Cat Dander Anaphylaxis High 05/21/2017 Corylus Anaphylaxis High 05/21/2017 Peanut (Diagnostic) Anaphylaxis High 05/21/2017 Sesame Seed (Diagnostic) Anaphylaxis High 05/21/2017 Soy Allergy Anaphylaxis High 01/16/2017 [place] Oil Edema airway High 01/10/2017 Wasp Venom [...] SPRAY) 0.65 % nasal spray Administer 1 [place] into nostril as needed for Congestion. Active [...] Visit Allergy & Immunology Valeriy Milton MD [address] [place] [address] Health Maintenance Due Date Last Done [...] Group Subscriber ID Type Phone Address [facility] [employer] [facility] [facility] [id number] [phone] [facility] [place] [phone] as of this encounter
--- OUTSIDE RECORDS SUMMARY | 2023-04-16 16:28 | External Medical Summary | Summary of Care ---
Author Name Unknown Organization [place] [address] Phone Care Team Providers Care Railroad Engineer Name Role Phone Vincent Santiago MD Primary Care Provide r Reason for Visit * Reason Comments Allergy Return Encounter Details Date Type Department Care Team Description 06/27/2017 Office Visit Allergy/Immunology [facility] [address] [place] [address] Valeriy Milton MD [address] [place], [place] [id number] Adverse food reaction, subsequent encounter*;Pollen-food allergy syndrome, subsequent encounter;Chronic seasonal allergic rhinitis due to pollen;Peanut allergy;Tree nut allergy;Allergic rhinitis due to dust;Chronic seasonal allergic rhinitis due to fungal spores;Non-seasonal allergic rhinitis due to animal hair and dander;Allergic conjunctivitis, bilateral;Intermittent asthma with reliever use up to twice per week, uncomplicated Allergies Active Allergy Reactions Severity Noted Date Comments Independence (Diagnostic) Anaphylaxis High 05/21/2017 Banana Edema airway High 01/10/2017 Cat Dander Anaphylaxis High 05/21/2017 Corylus Anaphylaxis High 05/21/2017 Peanut (Diagnostic) Anaphylaxis High 05/21/2017 Sesame Seed (Diagnostic) Anaphylaxis High 05/21/2017 Soy Allergy Anaphylaxis High 01/16/2017 [place] Oil Edema airway High 01/10/2017 Wasp Venom [...] SPRAY) 0.65 % nasal spray Administer 1 [place] into nostril as needed for Congestion. Active [...] nostril daily. 1 Inhaler 11 06/27/2017 Active loratadine ODT (CLARITIN REDITAB) 10 MG TBDP Pt takes 1/2 tab daily 03/26/2017 7 Discontinued as of this encounter Active Problems [...] Sign Reading Time Taken Blood Pressure 104/64 06/27/2017 3:37 PM EST Pulse 88 06/27/2017 3:37 PM EST Temperature 36.2 C (97.1 F) 06/27/2017 3 :37 PM EST Respiratory Rate 16 06/27/2017 3:37 PM EST Oxygen Saturation - - Inhaled Oxygen Concentration - - Weight 87.2 kg (192 lb 4.8 oz) 06/27/20 17 3:37 PM EST Height 164.5 cm (5' 4.75") 06/27/2017 3 :37 PM EST Body Mass Index 32.25 06/27/2017 3:37 PM EST in this encounter Instructions * Patient Instructions - Valeriy Milton MD - 06/27/2017 3:20 PM EST Pollen Avoidance Measures: Keep windows, doors closed; use air conditioning; dry clothes in vented dryer, not outside on clothesline; shower/bathe and change clothes right after outdoor activity; avoid outdoor activity during high pollen counts; use HEPA type air filtration system. Dust Mite Avoidance Measures: Essential: Encase mattress, pillow, box springs in allergen-impermeable covers; wash bedding weeklyin hot water(>130 degreesF); reduce indoor humidity to <50%; dust weekly and run HEPA type vacuum sweeper cleaner industrial. Desirable: Remove carpets from bedroom and any laid on concrete; minimize upholstered furniture; use HEPA type air filtration in bedroom and family room (close air ducts); remove stuffed toys and collectibles from bedroom. Mold Avoidance Measures: Indoor: Clean moldy surfaces with a diluted bleach solution or a commercial molder wax ball; fix waterleaks; reduce indoor humidity to <50% with dehumidifiers or air conditioning. Outdoor: Avoid uncut antonio, working with compost and soil, raking leaves and hay; keep windows anddoors closed; use air conditioning Animal Avoidance Measures: Remove pet from home; if unacceptable, keep pet out of the bedroom and off upholstered furniture; wash pet weekly; use HEPA-type air filtration in bedroom (close air ducts); remove feathered pillows/bedding. in this encounter Progress Notes * Valeriy Milton MD - 06/27/2017 3:20 PM EST Formatting of this note may be different from the original. SUBJECTIVE: Regina abel is evaluated in follow up for her food allergies, allergic rhinitis/conjunctivitis, intermittent asthma, and history of insect sting allergy. She continues to have problems with some adverse food reactions. Was recently eating Mandarin oranges in the car. After ingesting some she noted some significant mouth and tongue itching. It felt like there was some mild swelling. Interestingly 3 of her other children also complained of similar oral itching and burning and irritation. She did take Benadryl. She did not have to use prednisone or EpiPen or go to the emergency room but did have to take Benadryl for the next several days. She has also been having some episodes of chest tightness. It is not associated with cough or wheezing but she has been using her inhaler 1 puff more frequently with some improvement noted at times. She has been avoiding peanuts, tree nuts and seeds in the interval. No major accidental ingestions.She does have Benadryl and EpiPen to use on emergency basis. Continues to get a lot of nasal symptoms, especially postnasal drip. She is using Claritin 5 mg twice daily. She is not using her topical intranasal steroid spray Flonase. Asthma triggers have been respiratory infections, exercise, allergen exposure, odors and weather changes. Had recent significant reaction November, after ingestion of sunflower seeds. Within a few minutes got tightness of chest and shortness of breath. There was lips and throat swelling to the point there was some drooling; facial hives were noted as well. She took Benadryl and symptoms seem to resolve. She did not have to go to [...] the emergency room at that time. She does have a history of allergic rhinitis/conjunctivitis and asthma that goes back to childhood.She was seen in this office in the . Allergy immunotherapy was attempted but because of reactions she was only [...] are Patient Reported The overall score is: 18 suggesting: Moderately Controlled asthma for the survey taken on: 06/27/2017 3:32:47 PM. Patient Active Problem List Diagnosis Code Allergic [...] Current Outpatient Prescriptions Medication Sig Dispense Refill meclizine (ANTIVERT) 25 MG Tablet Take 1 Tab by mouth 3 times a day as needed for Dizziness. 30Tab 1 loratadine ODT (CLARITIN REDITAB) 10 MG TBDP Pt takes 1/2 tab daily albuterol (VENTOLIN HFA) 108 (90 BASE) MCG/ACT inhaler Inhale 2 Puffs by mouth every 4 hours asneeded for Cough, Shortness of Breath or Wheezing. 1 Inhaler 3 diphenhydrAMINE (BENADRYL) 25 MG Capsule Take 2 capsules at onset suspected allergic reaction; may repeat every 4-6 hrs. as needed. 40 Cap 1 EPINEPHrine, anaphylaxis, (EPI-PEN) 0.3 MG/0.3ML SOAJ injection For a severe reaction: Place orange end against the outer thigh, press firmly, hold in place for 10 seconds and go to the Emergencyroom. 2 Device 0 Cyanocobalamin (VITAMIN B-12 ER) 1000 MCG TBCR Take 1 Tab by mouth daily. Cranberry 250 MG CAPS Take 1 Tab by mouth 2 times a day. saline (OCEAN NASAL SPRAY) 0.65 % nasal spray Administer 1 [place] into nostril as needed for Congestion. PredniSONE (DELTASONE) 20 MG Tablet Take 2 tablets as a one time dose for significant mouth/thorat swelling 20 Tab 1 albuterol-ipratropium (DUONEB) 2.5-0.5 MG/3ML nebulizer solution Inhale 3 mL by mouth every 6 hoursas needed (wheezing). 60 Vial 5 Review of patient's allergies indicates: Allergen Reactions Independence (Diagnostic) Anaphylaxis Banana Edema airway Cat Dander Anaphylaxis [place] Tree Pollen [Corylus] Anaphylaxis Peanut (Diagnostic) Anaphylaxis Sesame Seed (Diagnostic) Anaphylaxis Soy Allergy Anaphylaxis [place] Oil Edema airway Wasp Venom Edema airway [...] floor and heart hardwood. 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 BP 104/64 | Pulse 88 | Temp (Src) 97.1 (Tympanic) | Resp 16 | Ht 5' 4.75" (1.645m) | Wt 192 lbs 4.8oz (87.227kg) | BMI 32.25 kg/m | BSA 2 m PHYSICAL EXAM: GENERAL: No acute distress. HEAD AND FACE: No sinus tenderness noted EYES: Conjunctiva- normal; EARS: TM's - clear NOSE:Pale mucosa; Moderate Inferior turbinate edema; no nasal polyps or mucopus; Septum - normal OROPHARYNX: Mild erythema, cobblestoning; No lesions, exudates NECK: Supple; No thyroid enlargment or cervical adenopathy RESPIRATORY: Clear to A and P; No wheezes; decreased breath sounds bilaterally; CARDIOVASCULAR: RRR; No gallops, rubs, clicks, or [...] with essentially normal spirometry. ASSESSMENT: ICD-10-CM 1. Adverse food reaction, subsequent encounter T78.1XXD 2. 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 Chronic seasonal allergic rhinitis due to pollen J30.1 4. Peanut allergy Z91.010 5. 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 Allergic rhinitis due to dust J30.89 7. Chronic seasonal allergic rhinitis due to fungal spores J30.2 8. Non-seasonal allergic rhinitis due to animal hair and dander J30.81 9. Allergic conjunctivitis, bilateral H10.13 10. Intermittent asthma with reliever use up to twice per week, uncomplicated J45.20 11. Anxiety F41.9 PLAN: This patient has been having some problems with some significant allergic reactions occurring over the last year. She does have some significant positive skin tests especially to almond, sunflower seeds, peanut and soy. Serum IgE determinations however show very show low positive reactions to these foods only. The reason for her reactions including recent mandarin oranges still unclear. She does also demonstrate significant pollen sensitivities by skin testing and the possibility of a pollen food allergy syndrome cannot be ruled out. This can be due to the resemblance of the proteins in some fresh fruits, vegetables, and nuts with tree/weed pollens to which she is highly allergic. Symptoms are almost always localized to the mouth [...] to the emergency room. She does have some significant allergic rhinitis/conjunctivitis symptoms. She has been having a lotof post nasal drip and drooling. Avoidance measures regarding pollens, molds, dust mites and animaldanders should be continued Regular use of an oral antihistamine recommended such as loratadine 5 mg twice daily. I have also recommended regular use of fluticasone nasal spray 2 squirts in each nostril daily to further reduce nasal congestion and postnasal drip. OTC Ketotifen fumarate eyedrops canbe used every 8-12 hours for allergic eye symptoms as needed basis. For intermittent episodes of chest tightness, shortness of breath especially in conjunction with allergic triggers, use of albuterol 2 puffs every 4 hours as needed recommended. It is unclear currently if her chest tightness is asthma or anxiety related. If it continues to flare, seeing her at the time of an episode for examination and spirometry may be revealing. Allergy Immunotherapy recommened for snf control of symptoms, especially if response to avoidance and medication therapy over time is not adequate. An attempt at immunotherapy was tried in the past, however she did not tolerate it due to reactions. There is a remote history in childhood of reaction to insect stings. Once her other problems are better controlled, venom testing recommended to see if there is still current significant IgE mediatedvenom sensitivity remaining. At the present time she will avoid insect stings and if stung follow the same Benadryl/EpiPen protocol that she uses for her food allergies. Follow Up: Return in about 5 months (around 11/25/2017), or if symptoms worsen or fail to [...] the provider listed above.) in this encounter Plan of Treatment Upcoming Encounters Date Type Specialty Care Team Description 11/27/2017 Office Visit Allergy & Immunology Valeriy Milton MD [address] [place] [address] [phone] Health Maintenance Due Date Last Done Comments [...] fileas of this encounter Visit Diagnoses Diagnosis Adverse food reaction, subse quent encounter - Primary Pollen-food allergy syndrome , subsequent encounter Chronic seasonal allergic rh initis due to pollen Peanut allergy Allergy to peanuts Tree nut allergy Allergy to other foods Allergic rhinitis due to dus t Allergic rhinitis due to other allergen Chronic seasonal allergic rh initis due to fungal spores Non-seasonal allergic rhinit is due to animal hair and dander Allergic conjunctivitis, hector ateral Other chronic allergic conjunctivitis Intermittent asthma with rel iever use up to twice per week, uncomplicated Anxiety Anxiety state, unspecified in this encounter Insurance Payer Benefit Plan / Group Subscriber ID Type Phone Address [facility] [id number] [phone] [address] [place] [address] as of this encounter
--- OUTSIDE RECORDS SUMMARY | 2023-04-16 16:28 | External Medical Summary ---
Author Name Unknown Address [facility] [address] [place] [phone] Phone Organization K01:[place] [id number] Laboratory Report Ordering Provider Test Date Status MANNY PEARCE 02/13/2017 11:03:00 Final Observation Date Value Abnormality Reference Status Milk IgE 02/14/2017 13:15 0.27 Above high normal <0.1 Final Performing Location [address] [address]
--- OUTSIDE RECORDS SUMMARY | 2023-04-16 16:28 | External Medical Summary ---
Author Name Unknown Address [facility] [place] [address] Phone Organization K01:[place] [address] [place] [id number] Laboratory Report Ordering Provider Test Date Status MANNY PEARCE 02/13/2017 11:03:00 Final Observation Date Value Abnormality Reference Status Pistachio IgE Ab [Units/volu me] in Serum 02/14/2017 13:15 <0.10 <0.1 Final Performing Location [place] [id number]
--- OUTSIDE RECORDS SUMMARY | 2023-04-16 16:28 | External Medical Summary ---
Author Name Unknown Address [address] [place] [address] Phone Organization K01:[facility] [address] [facility] [address] Laboratory Report Ordering Provider Test Date Status ANAYELI MOYA DO 10/05/2016 13:47:00 Final Obs # Observation Date Value Abnormality Reference Status Performing Location 0 Iron 10/05/2016 23:37 56 33-[address] [facility] [address] [facility] [address] 1 Iron-binding capacity 10/05/2016 23:37 301 250-425 Final 2 Transferrin Sat % 10/05/2016 23:37 19 15-55 Final
--- OUTSIDE RECORDS SUMMARY | 2023-04-16 16:28 | External Medical Summary ---
Author Name Unknown Address [facility] [place] [address] Phone Organization K01:[facility] [address] [place] [address] Laboratory Report Ordering Provider Test Date Status ANAYELI MOYA DO 10/05/2016 13:47:00 Final Obs # Observation Date Value Abnormality Reference Status Performing Location 0 Complement C3c [Mass/volume] in Serum or Plasma 10/05/2016 23:37 175 90-180 Final [place] [address] [address] [facility] [address]
--- OUTSIDE RECORDS SUMMARY | 2023-04-16 16:28 | External Medical Summary ---
Author Name Unknown Address [address] [place] [phone] Phone Organization K01:[facility] [address] [facility] [address] Laboratory Report Ordering Provider Test Date Status ANAYELI MOYA DO 10/05/2016 13:47:00 Final Obs # Observation Date Value Abnormality Reference Status Performing Location 0 Vitamin B12 10/06/2016 00:17 444 465-814 Final [facility] [address] [facility] [address]
--- OUTSIDE RECORDS SUMMARY | 2023-04-16 16:28 | External Medical Summary ---
Author Name Unknown Address [address] [place] [address] Phone Organization K01:[facility] [address] [place] [id number] Laboratory Report Ordering Provider Test Date Status GAURAV HARPER 10/10/2016 15:01:00 Final Obs # Observation Date Value Abnormality Reference Status Performing Location 0 D-dimer, Quant. 10/10/2016 23:35 <0.27 <0.[address] [facility] [address] [facility] [address]
--- OUTSIDE RECORDS SUMMARY | 2023-04-16 16:28 | External Medical Summary ---
Author Name Unknown Address [address] [facility] [place] [address] Phone Organization K01:[facility] [address] [place] [id number] Laboratory Report Ordering Provider Test Date Status ANAYELI MOYA DO 10/05/2016 13:47:00 Final Obs # Observation Date Value Abnormality Reference Status Performing Location 0 DNA double strand Ab [Titer] in Serum by Immunofluorescence (IF) Trip coon 10/08/19 17 13:06 <10 <10 Final [facility] [address] [facility] [address]
--- OUTSIDE RECORDS SUMMARY | 2023-04-16 16:28 | External Medical Summary ---
Author Name Unknown Address [address] [facility] [place] [address] Phone Organization K0G:[facility] Delvin Aquino [address] [facility] [place] [address] Laboratory Report Ordering Provider Test Date Status GAURAV HARPER 10/10/2016 15:01:00 Final Obs # Observation Date Value Abnormality Reference Status Performing Location 0 Amylase 10/10/2016 15:45 79 28-100 Final [facility] Delvin Aquino [address] [place] [address]
--- OUTSIDE RECORDS SUMMARY | 2023-04-16 16:28 | External Medical Summary ---
Author Name Unknown Address [facility] [address] [place] [phone] Phone Organization K01:[place] [address] [address] [facility] [address] Laboratory Report Ordering Provider Test Date Status ANAYELI MOYA DO 10/05/2016 13:47:00 Final Obs # Observation Date Value Abnormality Reference Status Performing Location 0 TSH 7 00:17 0.80 0.27-4.2 Final [place] [address] [address] [facility] [address] 1 T4, Free 7 00:17 NOT APPLICABLE 0.9-1.7 Final
--- OUTSIDE RECORDS SUMMARY | 2023-04-16 16:28 | External Medical Summary ---
Author Name Unknown Address [address] [place] [address] ) Organization K03:[facility] [address] [place] [address] Laboratory Report Ordering Provider Test Date Status MANNY PEARCE 02/13/2017 11:03:00 Final Observation Date Value Abnormality Reference Status Tryptase 02/16/2017 19:04 4 <11 Fin al Performing Location [facility] [address] [place], [place] [address]
--- OUTSIDE RECORDS SUMMARY | 2023-04-16 16:28 | External Medical Summary ---
Author Name Unknown Address [address] [place] [address] Phone Organization K01:[facility] [address] [facility] [address] Laboratory Report Ordering Provider Test Date Status ANAYELI MOYA DO 10/05/2016 13:47:00 Final Obs # Observation Date Value Abnormality Reference Status Performing Location 0 C4 10/05/2016 23:37 55 Above high normal 10-40 Final [facility] [address] [facility] [address]
--- OUTSIDE RECORDS SUMMARY | 2023-04-16 16:28 | External Medical Summary ---
Author Name Unknown Address [facility] [place] [address] Phone Organization K01:[place] [id number] Laboratory Report Ordering Provider Test Date Status MANNY PEARCE 02/13/2017 11:03:00 Final Observation Date Value Abnormality Reference Status Peanut IgE 02/14/2017 15:24 0.22 Above high normal <0.1 Final Performing Location [address] [address]
--- OUTSIDE RECORDS SUMMARY | 2023-04-16 16:28 | External Medical Summary ---
Author Name Unknown Address [facility] [place] [address] Phone Organization K01:[place] [address] Laboratory Report Ordering Provider Test Date Status MANNY PEARCE 02/13/2017 11:03:00 Final Observation Date Value Abnormality Reference Status Egg white IgE Ab [Units/volu me] in Serum 02/14/2017 13:15 <0.10 <0.1 Final Performing Location [place] [id number]
--- OUTSIDE RECORDS SUMMARY | 2023-04-16 16:29 | External Medical Summary ---
Author Name Unknown Organization K01:[facility], [address] [place] [address] Laboratory Report Ordering Provider Test Date Status ADILENE VO MD 05/03/2014 17:13:00-0400 Final Obs # Observation Date Value ABNL Reference Status Pe rforming Location 1 WBC 05/03/2014 22:02-0400 5.64 4.00-10.80 K/uL Final 2 RBC 05/03/2014 22:02-0400 4.12 3.85-5.15 M/uL Final 3 HGB 05/03/2014 22:02-0400 12.1 12.0-14.5 g/dL Final 4 HCT 05/03/2014 22:02-0400 36.4 36.0-44.5 % Final 5 MCV 05/03/2014 22:02-0400 88.3 81.5-97.5 fL Final 6 MCH 05/03/2014 22:02-0400 29.4 27.0-34.0 pg Final 7 MCHC 05/03/2014 22:02-0400 33.2 32.0-36.0 g/dL Final 8 RDW 05/03/2014 22:02-0400 14.3 11.5-15.5 % Final 9 PLT 05/03/2014 22:02-0400 230 140-400 K/uL Final 10 MPV 05/03/2014 22:02-0400 10.0 6.6-11.1 fL Final 11 Segs 05/03/2014 22:02-0400 45 40-75 % Final 12 Lymphocytes 05/03/2014 22:02-0400 42 18-42 % Final 13 Monos 05/03/2014 22:02-0400 7 1-11 % Final 14 Eosinophils 05/03/2014 22:02-0400 5 0-6 % Final 15 Basos 05/03/2014 22:02-0400 1 0-2 % Final 16 Segmented Neutrophils, Abs 05/03/2014 22:02-0400 2.60 1.8-7.7 K/uL Final 17 Lymphs, Abs 05/03/2014 22:02-0400 2.36 1.0-4.8 K/uL Final 18 Monos, Abs 05/03/2014 22:02-0400 0.37 0.0-1.1 K/uL Final 19 Eos, Abs 05/03/2014 22:02-0400 0.26 0.0-0.7 K/uL Final 20 Basos, Abs 05/03/2014 22:02-0400 0.04 0.0-0.2 K/uL Final
--- OUTSIDE RECORDS SUMMARY | 2023-04-16 16:29 | External Medical Summary ---
Author Name Unknown Address Unknown Organization : Laboratory Report Ordering Provider Test Date Status RACHEL MEEKS DO 05/12/2016 14:26:00 Final Obs # Observation Date Value Abnormality Reference Status Performing Location 0 Source 6 14:15 CLEAN CATCH URINE Final 1 Bacteria identified in Unspecified specimen by Culture 6 16:48 LESS THAN 10,000 COLONIES/M L MIXED GEORGE Final 2 6 16:48 05/13/2016 FINAL Final
--- OUTSIDE RECORDS SUMMARY | 2023-04-16 16:29 | External Medical Summary ---
Author Name Unknown Address [address] [place] [address] Phone Organization K0G:[facility] Delvin Aquino [address] [place] [address] Laboratory Report Ordering Provider Test Date Status RACHEL MEEKS 05/12/2016 13:42:00 Final Obs # Observation Date Value Abnormality Reference Status Performing Location 0 WBC, Total 6 14:16 6.82 4.00-10.80 Final [facility] [place] [address] [place] [address] 1 RBC 6 14:16 4.09 3.85-5.15 Final 2 Hemoglobin 6 14:16 12.3 12.0-15.3 Final 3 HCT 6 14:16 35.8 Below low normal 36.0-45.2 Final 4 MCV 6 14:16 87.5 81.5-97.5 Final 5 MCH 6 14:16 30.1 27.0-34.0 Final 6 MCHC 6 14:16 34.4 32.0-36.0 Final 7 RDW 6 14:16 13.4 11.5-15.5 Final 8 Platelets 6 14:16 224 140-400 Final 9 MPV 6 14:16 9.6 6.6-11.1 Final 10 NEUT 6 14:16 55.5 40-75 Final 11 Lymphs % 6 14:16 34.5 18-42 Final 12 Monos 6 14:16 5.6 1-11 Final 13 Eosinophils 6 14:16 3.8 0-6 Final 14 Basos 6 14:16 0.6 0-2 Final 15 ANEUT 6 14:16 3.79 1.8-7.7 Final 16 Lymphs, absolute 6 14:16 2.35 1.0-4.8 Final 17 Monos, Abs 6 14:16 0.38 0.0-1.1 Final 18 Eos, Abs 6 14:16 0.26 0.0-0.7 Final 19 Basos, Abs 6 14:16 0.04 0.0-0.2 Final
--- OUTSIDE RECORDS SUMMARY | 2023-04-16 16:29 | External Medical Summary ---
Author Name Unknown Address [address] [place] [id number] Phone Organization K01:[facility] [address] [facility] [address] Laboratory Report Ordering Provider Test Date Status ANAYELI MOYA DO 05/22/2016 14:58:00 Final Obs # Observation Date Value Abnormality Reference Status Performing Location 0 25-OH Vitamin D total 05/22/2016 23:05 25 >19 Final [facility] [address] [facility] [address]
--- OUTSIDE RECORDS SUMMARY | 2023-04-16 16:29 | External Medical Summary ---
Author Name Unknown Address [address] [facility] [place] [address] Phone Organization K01:[facility] [address] [facility] [place] [address] Laboratory Report Ordering Provider Test Date Status ANAYELI MOYA DO 05/22/2016 15:03:00 Final Obs # Observation Date Value Abnormality Reference Status Performing Location 0 Albumin, Urine 05/22/2016 22:35 <1.20 Final [facility] [address] [facility] [place] [address] 1 Creatinine [Moles/volume] in Urine 05/22/2016 22:35 159 Final 2 Microalbumin / Creatinine Ratio 05/22/2016 22:35 <8 <30 Final
--- OUTSIDE RECORDS SUMMARY | 2023-04-16 16:29 | External Medical Summary ---
Author Name Unknown Address [facility] [address] [place] [id number] Phone Organization K01:[place] [address] [address] [place] [id number] Laboratory Report Ordering Provider Test Date Status RACHEL MEEKS DO 05/12/2016 13:42:00 Final Obs # Observation Date Value Abnormality Reference Status Performing Location 0 TSH 6 20:43 0.91 0.27-4.2 Final [place] [address] [address] [facility] [address] 1 T4, Free 6 20:43 NOT APPLICABLE 0.9-1.7 Final
--- OUTSIDE RECORDS SUMMARY | 2023-04-16 16:29 | External Medical Summary ---
Author Name Unknown Address [address] [place] [address] ) Organization K03:[facility] [address] [place] [address] Laboratory Report Ordering Provider Test Date Status ANAYELI MOYA DO 05/22/2016 14:58:00 Final Obs # Observation Date Value Abnormality Reference Status Performing Location 0 Enzyme 05/25/2016 06:01 30 9-67 Final [facility] [address] [place], [place] [id number]
--- OUTSIDE RECORDS SUMMARY | 2023-04-16 16:29 | External Medical Summary ---
Author Name Unknown Address [address] [place], [place] [id number] ) Organization K03:[facility] [address] [place] [id number] Laboratory Report Ordering Provider Test Date Status ANAYELI MOYA DO 06/06/2016 13:24:00 Final Obs # Observation Date Value Abnormality Reference Status Performing Location 0 06/13/2016 13:35 REPORT Final [facility] [address] [place] [address]
--- OUTSIDE RECORDS SUMMARY | 2023-04-16 16:29 | External Medical Summary ---
Author Name Unknown Organization K01:[facility], [address] [address] Laboratory Report Ordering Provider Test Date Status ADILENE VO MD 05/03/2014 17:13:00-0400 Final Obs # Observation Date Value ABNL Reference Status Pe rforming Location 1 Ferritin 05/03/2014 22:01-0400 91.3 13-150 ng/mL Final
--- OUTSIDE RECORDS SUMMARY | 2023-04-16 16:29 | External Medical Summary ---
Author Name Unknown Organization K01:[facility], [address] [place] [address] Laboratory Report Ordering Provider Test Date Status ADILENE VO MD 05/03/2014 17:12:00-0400 Final Obs # Observation Date Value ABNL Reference Status Pe rforming Location 1 specimen 05/03/2014 17:10-0400 URINE Final 2 result 05/04/2014 16:10-0400 LESS THAN 10,000 COLONIES/ML 1 COLONY TYPE Final 3 report status 05/04/2014 16:10-0400 05/04/2014 FINAL Final
--- OUTSIDE RECORDS SUMMARY | 2023-04-16 16:29 | External Medical Summary ---
Author Name Unknown Address Unknown Organization : Laboratory Report Ordering Provider Test Date Status ANAYELI MOYA 06/06/2016 13:30:00 Final Obs # Observation Date Value Abnormality Reference Status Performing Location 0 Source 13:30 CLEAN CATCH URINE Final 1 Bacteria identified in Unspecified specimen by Culture 07:46 MULTIPLE GEORGE SUGGESTS CONTAMINATION OR COLONIZATION Final 2 07:46 06/08/2016 FINAL Final
--- OUTSIDE RECORDS SUMMARY | 2023-04-16 16:29 | External Medical Summary ---
Author Name Unknown Address [address] [place] [address] Phone Organization K01:[facility] [address] [facility] [address] Laboratory Report Ordering Provider Test Date Status ANAYELI MOYA DO 06/06/2016 13:30:00 Final Obs # Observation Date Value Abnormality Reference Status Performing Location 0 Color of Urine by Auto 06/06/20 16 17:00 YELLOW YEL Final [facility] [address] [facility] [address] 1 Clarity, Urine 06/06/20 16 17:00 CLEAR CLEAR Final 2 Glucose [Mass/volume] in Urine by Automated test strip 06/06/20 16 17:00 NEGATIVE NEG Final 3 Bilirubin.total [Presence] in Urine by Automated test strip 06/06/20 16 17:00 NEGATIVE NEG Final 4 Ketones [Mass/volume] in Urine by Automated test strip 06/06/20 16 17:00 NEGATIVE NEG Final 5 Specific gravity, Urine 06/06/20 16 17:00 1.030 1.003-1.030 Final 6 Hemoglobin [Presence] in Urine by Automated test strip 06/06/20 16 17:00 NEGATIVE NEG Final 7 pH, Urine 06/06/20 16 17:00 6.0 5.0-7.5 Final 8 Protein [Mass/volume] in Urine by Automated test strip 06/06/20 16 17:00 TRACE Abnormal NEG Final 9 Urobilinogen [Mass/volume] in Urine by Automated test strip 06/06/20 16 17:00 NORMAL NORM Final 10 Nitrite [Presence] in Urine by Automated test strip 06/06/20 16 17:00 NEGATIVE NEG Final 11 Leukocyte esterase [Presence] in Urine by Automated test strip 06/06/20 16 17:00 SMALL Abnormal NEG Final 12 Bacteria [Presence] in Urine by Automated 06/06/20 16 17:00 MODERATE (25-50) Abnormal NONE Final 13 Leukocytes [#/area] in Urine sediment by Automated count 06/06/20 16 17:00 10-19 Abnormal U02 Final 14 Erythrocytes [#/area] in Urine sediment by Automated count 06/06/20 16 17:00 3-5 Abnormal U02 Final 15 Hyaline casts [#/area] in Urine sediment by Automated count 06/06/20 16 17:00 1-4 UM1 Final
--- OUTSIDE RECORDS SUMMARY | 2023-04-16 16:29 | External Medical Summary ---
Author Name Unknown Address [facility] [place] [address] Phone Organization K01:[facility] [address] [place] [address] Laboratory Report Ordering Provider Test Date Status ANAYELI MOYA DO 05/22/2016 15:03:00 Final Obs # Observation Date Value Abnormality Reference Status Performing Location 0 Color of Urine by Auto 05/22/20 16 22:26 YELLOW YEL Final [place] [address] [address] [facility] [address] 1 Clarity, Urine 05/22/20 16 22:26 CLEAR CLEAR Final 2 Glucose [Mass/volume] in Urine by Automated test strip 05/22/20 16 22:26 NEGATIVE NEG Final 3 Bilirubin.total [Presence] in Urine by Automated test strip 05/22/20 16 22:26 NEGATIVE NEG Final 4 Ketones [Mass/volume] in Urine by Automated test strip 05/22/20 16 22:26 NEGATIVE NEG Final 5 Specific gravity, Urine 05/22/20 22:26 1.023 1.003-1.030 Final 6 Hemoglobin [Presence] in Urine by Automated test strip 05/22/20 16 22:26 NEGATIVE NEG Final 7 pH, Urine 05/22/20 16 22:26 6.5 5.0-7.5 Final 8 Protein [Mass/volume] in Urine by Automated test strip 05/22/20 16 22:26 NEGATIVE NEG Final 9 Urobilinogen [Mass/volume] in Urine by Automated test strip 05/22/20 16 22:26 NORMAL NORM Final 10 Nitrite [Presence] in Urine by Automated test strip 05/22/20 16 22:26 NEGATIVE NEG Final 11 Leukocyte esterase [Presence] in Urine by Automated test strip 05/22/20 16 22:26 SMALL Abnormal NEG Final 12 Bacteria [Presence] in Urine by Automated 05/22/20 16 22:26 FEW (1-24) Abnormal NONE Final 13 Leukocytes [#/area] in Urine sediment by Automated count 05/22/20 16 22:26 0-2 U02 Final 14 Erythrocytes [#/area] in Urine sediment by Automated count 05/22/20 16 22:26 6-9 Abnormal U02 Final
--- OUTSIDE RECORDS SUMMARY | 2023-04-16 16:29 | External Medical Summary ---
Author Name Unknown Address [address] [place] [address] Phone Organization K09:[facility] [address] [place] [address] Laboratory Report Ordering Provider Test Date Status ANAYELI MOYA DO 05/22/2016 14:58:00 Final Obs # Observation Date Value Abnormality Reference Status Performing Location 0 Albumin 05/22/2016 15:40 5.0 3.8-5.0 Final [facility] [place] [address] [place] [address] 1 AST (Aspartate aminotransferase) 05/22/2016 15:40 25 10-35 Final 2 Alk Phos 05/22/2016 15:40 112 0-153 Final 3 ALT (Alanine aminotransferase) 05/22/2016 15:40 34 10-35 Final 4 Bilirubin, Total 05/22/2016 15:40 0.4 0-1.2 Final 5 Bilirubin, Direct 05/22/2016 15:40 <0.2 0.0-0.3 Final 6 Protein 05/22/2016 15:40 8.2 6.0-8.3 Final
--- OUTSIDE RECORDS SUMMARY | 2023-04-16 16:29 | External Medical Summary ---
Author Name Unknown Address [address] [place] [address] Phone Organization K0G:[facility] Aqu[facility] [address] [facility] [place] [address] Laboratory Report Ordering Provider Test Date Status RACHEL MEEKS DO 05/12/2016 13:42:00 Final Obs # Observation Date Value Abnormality Reference Status Performing Location 0 BUN 05/12/2016 14:37 11 6-20 Final [facility] [employer] [address] [place] [address] 1 Creatinine 05/12/2016 14:37 0.7 0.5-1.0 Final
--- OUTSIDE RECORDS SUMMARY | 2023-04-16 16:29 | External Medical Summary ---
Author Name Unknown Address [address] [id number] Phone Organization K01:[facility] [address] [facility] [address] Laboratory Report Ordering Provider Test Date Status ANAYELI MOYA DO 05/22/2016 14:58:00 Final Obs # Observation Date Value Abnormality Reference Status Performing Location 0 Parathyrin.intact [Mass/volume] in Serum or Plasma 05/22/2016 22:31 21 15-65 Final [facility] [address] [facility] [address]
[2023-04-16] MEDS ORDERED: ePHEDrine sulfate 50 MG/ML AMP ONE (16:30)
[2023-04-16] MEDS ORDERED: SODIUM CHLORIDE 0.9% PF INJ 10 ML VIAL ONE (16:30)
[2023-04-16] MEDS ORDERED: BUPIVACAINE 0.25% PF 30 ML VIAL ONE (16:30)
[2023-04-16] MEDS ORDERED: fentaNYL citrate PF 100 MCG/2 ML VIAL ONE (16:30)
[2023-04-16] MEDS ORDERED: fentaNYL 2MCG/ML ROPIVACAINE 1.25MG/ML 100 ML BAG EPI ONE (16:30)
[2023-04-16] MEDS ORDERED: LIDOCAINE 2%/EPINEPHRINE 1:200,000 20 ML PF ONE (16:30)
[2023-04-16 16:56] LABS: Hematocrit (blood only) 30.8 % (37.0-47.0); Hemoglobin 10.3 g/dl (12.0-16.0); Mean Corpuscular Hemoglobin 29.9 pg (25.0-34.0); Mean Corpuscular Hgb Conc 33.4 g/dL (32.0-36.0); Mean Corpuscular Volume 89.3 fL (80.0-100.0); Mean Platelet Volume 10.8 fL (9.4-12.4); Platelet Count 160 K/uL (130-400); RDW Coefficient of Variation 14.9 % (11.5-14.5); RDW Standard Deviation 48.3 fL (36.4-46.3); Red Blood Count 3.45 M/uL (4.20-5.40)
--- NOTE | 2023-04-16 18:26 | Anesthesiology Consultation ---
Date of Service April 16, 2023 Assessment & Plan Chart Review Chart Review: Acceptable Risk for Labor Epidural Consults Requested none History Height/Weight Weight: 101.151 kg Allergies Allergy/AdvReac Type Severity Reaction Status Date / Time banana Allergy Severe ANAPHYLAXIS Verified 03/13/19 01:45 - "TONGUE TINGLES" cat dander Allergy Severe SOB, ITCHY Verified 03/13/19 01:45 ALL OVER dog dander Allergy Severe SOB, ITCHY Verified 03/13/19 01:45 ALL OVER peanut Allergy Severe Anaphylaxis Verified 03/13/19 01:45 sesame seed Allergy Severe Anaphylaxis Verified 03/13/19 01:45 soy Allergy Severe ANAPHYLAXIS Verified 03/13/19 01:45 sunflower seed Allergy Severe ANAPHYLAXIS Verified 03/13/19 01:45 tree nut Allergy Severe Anaphylaxis Verified 03/13/19 01:45 hornet venom Allergy Intermediate HIVES, SOB Verified 03/13/19 01:45 latex Allergy Mild slight Verified 03/13/19 01:45 skin irritation Stevens And Derivatives Allergy Anaphylaxis Verified 04/16/23 15:58 lactose Allergy Anaphylaxis Verified 04/16/23 15:59 Dust Allergy Severe SNEEZING; Uncoded 03/13/19 01:45 MAY HAVE DIFFICULTY BREATHING Medications Home Medications Medication Instructions Recorded Confirmed Last Taken Lactobacillus acidophilus 10 10 cell PO DAILY 03/13/19 04/16/23 04/15/23 22:00 billion cell capsule (Probiotic) albuterol sulfate 90 mcg/actuation 2 puff inhalation Q4H PRN 03/13/19 04/16/23 Unknown aerosol inhaler Shortness Of Breath Or Wheezing cranberry 500 mg capsule 500 mg PO DAILY 03/13/19 04/16/23 04/15/23 22:00 diphenhydramine HCl 25 mg tablet 50 mg PO DAILY PRN Allergy Symptoms 03/13/19 04/16/23 Unknown (Benadryl Allergy) epinephrine 0.3 mg/0.3 mL 0.3 mg IM DIRECTED PRN Allergic 03/13/19 04/16/23 Unknown injection, auto-injector (EpiPen) Reaction fluticasone propionate 50 2 spray intranasal DAILY PRN 03/13/19 04/16/23 04/09/23 mcg/actuation nasal Congestion spray,suspension (Flonase Allergy Relief) loratadine 10 mg tablet (Claritin) 10 mg PO DAILY PRN Allergy Symptoms 03/13/19 04/16/23 04/16/23 0900 vit no.95-ferrous 1 tab PO DAILY 03/13/19 04/16/23 04/15/23 22:00 fumarate 28 mg-folic acid 800 mcg tablet () Active Medications Generic Name Dose Route Start Last Admin Trade Name Sukumarq PRN Reason Stop Dose Admin Lactated Ringer's 1,000 mls @ 125 mls/hr 04/16/23 15:53 04/16/23 17:09 Lr IV 04/18/23 15:52 125 mls/hr .Q8H PRN Administration L&D Protocol Protocol Past Medical History Medical History (Updated 04/16/23 @ 15:57 by Jackelyn Huynh RN) Asthma Kidney stones (11/03/13) Past Surgical History Surgical History History of appendectomy Social History Smoking Status: Never smoker Hx Alcohol Use: No Hx Substance Use: No Physical Exam Vital Signs Last Vital Signs Temp 36.8 C 04/16/23 16:04 Pulse 66 04/16/23 18:22 Resp 18 04/16/23 18:10 BP 134/68 04/16/23 18:22 Pulse Ox 100 04/16/23 18:16 Testing Laboratory Results 04/16/23 16:19 Blood Type O Positive 04/16/23 16:19 Antibody Screen NEGATIVE 04/16/23 16:19
[2023-04-16] MEDS ORDERED: BUPIVACAINE 0.25% PF 30 ML VIAL EPI STA (18:27)
[2023-04-16] MEDS ORDERED: LIDOCAINE 2% MPF LOCAL 5 ML VIAL EPI PRN (18:27)
[2023-04-16] MEDS ORDERED: SODIUM CHLORIDE 0.9% PF INJ 10 ML VIAL EPI STA (18:27)
[2023-04-16] MEDS ORDERED: ePHEDrine sulfate 50 MG/ML AMP IV PRN (18:27)
[2023-04-16] MEDS ORDERED: fentaNYL citrate PF 100 MCG/2 ML VIAL EPI PRN (18:27)
[2023-04-16] MEDS ORDERED: diphenhydrAMINE 50 MG/ML VIAL IV PRN (18:27)
[2023-04-16] MEDS ORDERED: ROPIVACAINE 0.5% PF 5 MG/ML 20 ML VIAL EPI PRN (18:27)
[2023-04-16] MEDS ORDERED: fentaNYL citrate PF 100 MCG/2 ML VIAL EPI STA (18:27)
[2023-04-16] MEDS ORDERED: NALOXONE HCL 1 MG in SODIUM CHLORIDE 0.9% 1000ML 1,000 ML IV PRN (18:27)
[2023-04-16] MEDS ORDERED: LIDOCAINE 2%/EPINEPHRINE 1:200,000 20 ML PF EPI STA (18:27)
[2023-04-16] MEDS ORDERED: NALBUPHINE HCL INJ 10 MG/ML AMP IV PRN (18:27)
[2023-04-16] MEDS ORDERED: fentaNYL 2MCG/ML ROPIVACAINE 1.25MG/ML 100 ML BAG EPI PRN (18:27)
[2023-04-16] MEDS ORDERED: BUPIVACAINE 0.25% PF 30 ML VIAL EPI PRN (18:27)
[2023-04-16] MEDS ORDERED: NALOXONE HCL 0.4 MG/1 ML VIAL/CARP IV PRN (18:27)
[2023-04-16] MEDS ORDERED: SODIUM CHLORIDE 0.9% PF INJ 10 ML VIAL EPI PRN (18:27)
[2023-04-16] MEDS ORDERED: SODIUM CHLORIDE 0.9% 250 ML IV PRN (19:50)
[2023-04-16] MEDS ORDERED: oxyCODONE/ACETAMINOPHEN 5mg/325mg TAB PO PRN (20:44)
[2023-04-16] MEDS ORDERED: ACETAMINOPHEN 325 MG TAB PO PRN (20:44)
[2023-04-16] MEDS ORDERED: DIPHTHERIA/TETANUS/PERTUSSIS Vaccine (Tdap, Age 7+yrs) 0.5mL SYR/VL IM ONE (20:44)
[2023-04-16] MEDS ORDERED: HYDROCORTISONE ACETATE 25 MG SUPP PR PRN (20:44)
[2023-04-16] MEDS ORDERED: ACETAMINOPHEN W/CODEINE #3 1 TAB PO PRN (20:44)
[2023-04-16] MEDS ORDERED: BENZOCAINE 20% SPRY 85 APPLN/85 GM CAN EXT PRN (20:44)
[2023-04-16] MEDS ORDERED: bisacodyL 10 MG SUPP PR PRN (20:44)
[2023-04-16] MEDS ORDERED: METHYLERGONOVINE MALEATE 0.2 MG/ML AMP IM ONE (20:44)
--- NOTE | 2023-04-16 20:51 | Delivery Summary ---
Vaginal Delivery Summary Date of Service April 16, 2023 Vaginal Delivery Summary Niall Duncan has been followed in our office for care and delivery. She is a 11 para 8. Blood type so positive. Strep screen negative. Was admitted in labor on 04/16/2023. She was 37 weeks gestation. At 6 cm of cervical dilatation she received epidural for pain control. Following this IV Pitocin was used to create regular contractions. Membranes were ruptured at about 7 cm with clear fluid. She went to full dilatation. With approximately 2 pushes she pushed out a live female via direct occiput anterior position. delivered over an intact perineum. Cord was allowed to pulsate for 1 full minute. Cord was then clamped and cut by the father. Cord blood was taken. Placenta was removed with IV Pitocin and IM Methergine. Placenta was removed intact. First-degree laceration of the perineum was noted. A deep suture of heavy Vicryl was used to approximate the bulbocavernosus muscle. 2 separate deep sutures of heavy Vicryl were used to approximate the perineal body. A running subcuticular suture was used to approximate the perineal skin edges. And a running vaginal sutures used to approximate the vaginal edges. Hemostasis was good. Estimated blood loss was 100 mL. Patient tolerated the delivery well.
--- NOTE | 2023-04-16 21:25 | Anesthesia Procedure Note ---
Date of Service April 16, 2023 Anesthesia Post Epidural Note Vital Signs Vital Signs: Temp Pulse Resp BP Pulse Ox 36.8 C 68 18 118/59 L 67 L 04/16/23 21:02 04/16/23 21:17 04/16/23 21:02 04/16/23 21:17 04/16/23 20:24 Notes Mental Status: alert / awake / arousable Nausea / Vomiting: adequately controlled Pain: adequately controlled Airway Patency, RR, SpO2: stable & adequate BP & HR: stable & adequate Hydration State: stable & adequate Neuraxial Anesthesia: was administered and sensory block is resolving Anesthetic Complications: no major complications apparent and Pt Satisfied with anesthetic care Epidural: Removed without complications and With tip intact
[2023-04-16] MEDS: DOCUSATE SODIUM 100 MG CAP PO SCH ×2 (22:16→22:18)
[2023-04-17] MEDS: IBUPROFEN 600 MG TAB PO PRN ×2 (03:26→15:39)
[2023-04-17 06:56] LABS: Hematocrit (blood only) 30.1 % (37.0-47.0); Hemoglobin 10.2 g/dl (12.0-16.0); Mean Corpuscular Hgb Conc 33.9 g/dL (32.0-36.0); Mean Corpuscular Volume 88.5 fL (80.0-100.0); Mean Platelet Volume 10.7 fL (9.4-12.4); Platelet Count 153 K/uL (130-400); RDW Coefficient of Variation 14.6 % (11.5-14.5); RDW Standard Deviation 47.1 fL (36.4-46.3)
[2023-04-17] MEDS: DOCUSATE SODIUM 100 MG CAP PO SCH ×2 (08:27→22:32)
[2023-04-17] MEDS: PRENATAL VITAMIN 1 TAB PO SCH (08:27)
--- NOTE | 2023-04-17 10:00 | Obstetrical Progress Note ---
Date of Service April 17, 2023 Assessment & Plan Admission and Anticipated Discharge Date Admission Date: April 16, 2023 Subjective abdomen soft and non tender no calf tenderness ambulating well vaginal bleeding scant hgb 10.2 Results & Data Vital Signs (Past 12 Hours) Vital Signs Temp Pulse Pulse Resp BP BP Pulse Ox 04/17/23 08:00 36.9 C 73 18 122/61 97 04/17/23 03:30 36.7 C 68 18 126/76 97 04/17/23 00:05 37 C 83 18 129/52 L 97 04/16/23 23:01 18 04/16/23 22:02 18 04/16/23 23:01 78 127/60 04/16/23 22:46 86 134/63 04/16/23 22:31 72 123/65 04/16/23 22:02 72 128/74 O2 Del Method 04/17/23 08:00 Room Air 04/17/23 03:30 Room Air 04/17/23 00:05 Room Air 04/16/23 23:01 04/16/23 22:02 04/16/23 23:01 04/16/23 22:46 04/16/23 22:31 04/16/23 22:02
[2023-04-17] MEDS ORDERED: bisacodyL 5 MG TABEC PO SCH (20:00)
[2023-04-18] MEDS: IBUPROFEN 600 MG TAB PO PRN ×2 (03:46→11:30)
[2023-04-18 08:01] LABS: Hematocrit (blood only) 28.7 % (37.0-47.0); Hemoglobin 9.5 g/dl (12.0-16.0)
--- NOTE | 2023-04-18 08:21 | Obstetrical Progress Note ---
Date of Service April 18, 2023 Assessment & Plan Admission and Anticipated Discharge Date Admission Date: April 16, 2023 Subjective abdomen soft and non tender no calf tenderness ambulating well vaginal bleeding scant hgb 9.5 Results & Data Vital Signs (Past 12 Hours) Vital Signs Temp Pulse Resp BP Pulse Ox O2 Del Method 04/18/23 00:25 36.8 C 77 18 123/81 97 Room Air
[2023-04-18] MEDS: DOCUSATE SODIUM 100 MG CAP PO SCH (08:22)
[2023-04-18] MEDS: PRENATAL VITAMIN 1 TAB PO SCH (08:22)
== END 2023-04-18 14:55 | disposition home or self-care (01) | DRG 807 ==
LOC: OPB 15:51 → 4S1 15:52 → 4E1 04-17 00:12